=== PATIENT | female | born 1975 | race Caucasian/White ===

== ENCOUNTER 2024-04-22 04:15 | Emergency (ER) | payer BC, SELFPAY ==
[2024-04-22 04:22] VITALS: BP 156/70; PULSE 78; RESP 23; TEMP 36.6; O2SAT 98
--- OUTSIDE RECORDS SUMMARY | 2024-04-22 04:25 | XMS_ITS | Encounter Summary ---
Author Organization [facility] [place] Address [address] [place] [address] Care Team Providers Care Lead Cytogenetic Technologist Name Role Phone Edmar Temple MD Primary Care Provider [phone] Reason for Referral * (Routine/Next Available) - Receiving Office to Obtain Authorization Specialty Diagnoses / Procedures Referred By Contac t Referred To Contact Procedures CT OUTSIDE IMAGES LUMBAR SPINE Unknown, ProviderMD Referral ID Status Reason Start Date Expiration Date Visits Requested Visits Authorized [id number] Receiving Office to Obtain Authorization 3 1 1 Reason for Visit * (Routine/Next Available) - Receiving Office to Obtain Authorization Specialty Diagnoses / Procedures Referred By Contac t Referred To Contact Procedures CT OUTSIDE IMAGES LUMBAR SPINE Unknown, MD Clayton Referral ID Status Reason Start Date Expiration Date Visits Requested Visits Authorized [id number] Receiving Office to Obtain Authorization 3 1 1 Encounter Details Date Type Department Care Team (Latest Contact Info) Description 07/19/2023 14:45 EDT Hospital Encounter [facility] Secondary Reads [place] Discharge Disposition: Home or Self Care Social History Tobacco Use Types Packs/Day Years Used Date Smoking Tobacco: Former Cigarettes Q uit: 09/26/2003 Smokeless Tobacco: Never Alcohol Use Standard Drinks/Week Comments Yes 0 (1 standard drink = 0.6 oz pure alcohol) social does not tolerate well since bariatric surgery Interpersonal Safety Answer Date Record ed Physically Hurt Never 04/21/2020 Verbally Threaten Not on file 04/21/2020 Sex and Gender Information Value Date Recorded Sex Assigned at Not on file Gender Identity Not on file Sexual Orientation Not on file documented as of this encounter Functional Status Functional Status Response Date of Assess ment Because of a physical, menta l, or emotional condition, does this person have difficulty doing errands alone such as visiting a doctor's office or shopping? No 03/02/2018 Cognitive Status Response Date of Assessm ent Because of a physical, menta l, or emotional condition, does this person have serious difficulty concentrating, remembering, or making decisions? No 03/02/2018 documented as of this encounter Medications at Time of Discharge Medication Sig Dispensed Refills Start Date End Date acetaminophen (TYLENOL) 325 mg tablet Take 1-2 Tabs by mouth every 4 hours as needed for Pain. 04/18/2011 amLODIPine (NORVASC) 2.5 mg tablet Take 2 Tablets by mouth daily. atorvastatin (LIPITOR) 10 mg tablet Take 2 Tablets by mouth daily. blood glucose (FREESTYLE TEST) test stripsIndications:Type 2 diabetes mellitus with hyperglycemia ([facility]) Use as directed as needed for CGM back up. 100 Each 3 10/06/2022 CALCIUM CARBONATE/VITAMIN D3 (CALCIUM WITH VITAMIN D ORAL) Take by mouth daily. Cholecalciferol, Vitamin D3, 50 mcg capsuleIndications:Statu s post gastric bypass for obesity,Morbid obesity ([facility]),Postresectiona l malabsorption syndrome Take 1 Capsule by mouth daily. Cinnamon Bark 500 mg capsule Take 1,000 mg by mouth daily. citalopram (CELEXA) 20 mg tablet Take 1 Tab by mouth daily. 30 Tab 2 11/28/2010 CYANOCOBALAMIN (VITAMIN B-12 ORAL) Take by mouth daily. FERROUS FUMARATE (IRON ORAL) Take 1 Cap by mouth daily. 06/01/2011 insulin glargine (LANTUS SOLOSTAR/SEMGLEE) 100 unit/mL (3 mL) injection penIndications:Type 2 diabetes mellitus with hyperglycemia, with long-term current use of insulin ([facility]) Inject 60 Units into the skin at bedtime. Pump back up. Save to file 15 Each 01/21/2023 insulin lispro (HUMALOG U-100 INSULIN) 100 unit/mL vialIndications:Type 2 diabetes mellitus with hyperglycemia, with long-term current use of insulin ([facility]) Inject up to 120 units daily via insulin pump. 110 mL 3 04/01/2023 insulin pump cart,auto,BT-cntr (OMNIPOD 5 G6 INTRO KIT, GEN 5,) cartridge Inject 1 Each into the skin continuous. 1 Each 10/05/2022 levothyroxine (SYNTHROID) 25 mcg tabletIndications:Hypoth yroidism,Diabetes mellitus ([facility]) Take 1 Tablet by mouth daily. 90 Tablet 3 09/07/2022 losartan (COZAAR) 50 mg tablet Take 1 Tablet by mouth daily. MULTIVITAMIN ORALIndications:Morbid obesity ([facility]),DM (diabetes mellitus), type 2 ([facility]),HTN (hypertension),Status post gastric bypass for obesity,PCOS (polycystic ovarian syndrome),Malabsorption syndrome,Hypothyroid Take by mouth daily. 06/30/2010 semaglutide (OZEMPIC) 2 mg/dose (8 mg/3 mL) pen injectorIndications:Type 2 diabetes mellitus with hyperglycemia, with long-term current use of insulin ([facility]) Inject 2 mg into the skin once a week. 9 mL 3 04/06/2023 VITAMIN B COMPLEX ORAL Take by mouth daily. vitamin E 400 unit capsuleIndications:Hypot hyroidism,Diabetes mellitus ([facility]) Take 1 Capsule by mouth daily. Blood-Glucose Transmitter (DEXCOM G6 TRANSMITTER) device Use 1 Each as directed continuous. 1 Each 3 10/12/2022 10/05/2023 DEXCOM G6 SENSOR device USE 1 DEVICE EVERY 10 DAYS 9 Each 3 09/10/2022 09/02/2023 insulin pump cart,automated,BT (OMNIPOD 5 G6 PODS, GEN 5,) cartridge Inject 1 Each into the skin every 48 hours. 45 Each 3 04/01/2023 09/07/2023 metFORMIN (GLUCOPHAGE) 1,000 mg tabletIndications:Type 2 diabetes mellitus with hyperglycemia, with long-term current use of insulin ([facility]) Take 1 Tablet by mouth 2 times daily. 180 Tablet 3 09/07/2022 09/02/2023 documented as of this encounter Discharge Disposition Disposition Code Departure Means Destination Home or Self Care documented in this encounter Plan of Treatment Upcoming Encounters Date Type Department Care Team (Late st Contact Info) Description 05/17/2024 13:00 EDT Office Visit [facility] Endocrinology - [facility] [address] [place] [address] Twyla Mcclellan NP 62 [facility] [address] [place] [phone] 08/30/2024 14:00 EST Office Visit [facility] Endocrinology - [facility] [address] [place] [address] Twyla Mcclellan NP [address] [phone] documented as of this encounter Procedures Procedure Name Priority Date/Time Associated Diagnosis Comments CT OUTSIDE IMAGES LUMBAR SPINE Routine 07/19/2023 14:46 EDT documented in this encounter Results * CT OUTSIDE IMAGES LUMBAR SPINE (07/19/2023 14:46 EDT) Narrative 07/19/2023 14:46 EDT This is a non-reportable exam. Provider Unknown MD COLEMAN OTHER IMAGING OR DERABLES documented in this encounter Visit Diagnoses Not on filedocumented in this encounter Care Teams Lead Cytogenetic Technologist Relationship Specialty Start Date End Date Edmar Temple MD [address] [place] [address] [address] [place] [phone] PCP - General 11/21/13 documented as of this encounter
--- OUTSIDE RECORDS SUMMARY | 2024-04-22 04:25 | XMS_ITS | Encounter Summary ---
Author Organization [facility] Address [address] [place] [address] Care Team Providers Care Cheese Factory Worker Name Role Phone Edmar Temple MD Primary Care Provider [phone] Reason for Visit * Reason Comments New Med Request Encounter Details Date Type Department Care Team (Late st Contact Info) Description 11/23/2023 [facility] Endocrinology - [facility] [address] [place] [address] Twyla Mcclellan NP 62 [facility] [address] [place] [address] New Med Request Social History Tobacco Use Types Packs/Day Years [...] No 03/02/2018 documented as of this encounter Ordered Prescriptions Prescription Sig Dispensed Refills Start Date End Da te metFORMIN (GLUCOPHAGE-XR) 500 mg ER tablet Take 2 Tablets by mouth 2 times daily. 360 Tablet 3 11/24/2023 documented in this encounter Miscellaneous Notes * Telephone Encounter - Minerva Wallis (Rn), RN - 11/24/2023 0927 EST Per note on 11/17/2023: Metformin ER 1000mg twice daily documented in this encounter Plan of Treatment Upcoming Encounters Date Type Department Care Team (Late st Contact Info) Description 05/17/2024 13:00 EDT Office Visit [facility] Endocrinology [address] [phone] Twyla Mcclellan NP [address] [place] [phone] 08/30/2024 14:00 EST Office Visit [address] [address] Twyla Mcclellan NP [address] [place] [phone] documented as of this encounter Visit Diagnoses Not on filedocumented in this encounter Discontinued Medications Medication Sig Discontinue Reason Start Date End Da te metFORMIN (GLUCOPHAGE-XR) 500 mg ER tablet Take 1 Tablet by mouth 2 times daily with breakfast and dinner. 11/17/2023 11/24/2023 documented as of this encounter Care Teams Cheese Factory Worker Relationship Specialty Start Date End Date Edmar Temple MD [address] [place] [address] [place] [phone] PCP - General 11/21/13 documented as of this encounter
--- OUTSIDE RECORDS SUMMARY | 2024-04-22 04:25 | XMS_ITS | Encounter Summary ---
Author Organization [facility] Address [address] [place] [address] Care Team Providers Care Creative Strategist Name Role Phone Edmar Temple MD Primary Care Provider [phone] Reason for Visit * Reason Comments Medications Refill Encounter Details Date Type Department Care Team (Late st Contact Info) Description 10/03/2023 Refill [facility] Endocrinology - [facility] [address] [place], [place] [phone] Twyla Mcclellan NP 62 [facility] [address] [place] [address] Medications Refill Social History Tobacco Use Types Packs/Day Years [...] Dispensed Refills Start Date End Da te DEXCOM G6 TRANSMITTER device USE DIRECTED FOR 90 DAYS 1 Each 3 10/05/2023 documented in this encounter Plan of Treatment Upcoming Encounters Date Type Department Care Team (Late st Contact Info) Description 05/17/2024 13:00 EDT Office Visit [facility] Endocrinology [address] [address] Twyla Mcclellan NP [address] [place] [phone] 08/30/2024 14:00 EST Office Visit [address] [address] Twyla Mcclellan NP [address] [place] [phone] documented as of this encounter Visit Diagnoses Not on filedocumented in this encounter Discontinued Medications Medication Sig Discontinue Reason Start Date End Da te Blood-Glucose Transmitter (DEXCOM G6 TRANSMITTER) device Use 1 Each as directed continuous. 10/12/2022 10/05/2023 documented as of this encounter Care Teams Creative Strategist Relationship Specialty Start Date End Date Edmar Temple MD [address] [place] [address] [address] [place] [phone] PCP - General 11/21/13 documented as of this encounter
--- OUTSIDE RECORDS SUMMARY | 2024-04-22 04:25 | XMS_ITS | Encounter Summary ---
Author Organization [facility] Address [address] [place] [address] Care Team Providers Care Youth Probation Officer Name Role Phone Edmar Temple MD Primary Care Provider [phone] Reason for Visit * Reason Comments New Med Request Encounter Details Date Type Department Care Team (Late st Contact Info) Description 09/07/2023 [facility] Endocrinology - [facility] [address] [place] [address] Twyla Mcclellan NP 62 [facility] [address] [place] [address] New Med Request Social History [...] Dispensed Refills Start Date End Da te Blood-Glucose Sensor (DEXCOM G6 SENSOR) device Change sensor every 10 days. 9 Each 3 09/07/2023 documented in this encounter Plan of Treatment Upcoming Encounters Date Type Department Care Team (Late st Contact Info) Description 05/17/2024 13:00 EDT Office Visit [facility] Endocrinology - [address] [phone] Twyla Mcclellan NP [address] [place] [phone] 08/30/2024 14:00 EST Office Visit [address] [phone] Twyla Mcclellan NP [address] [place] [phone] documented as of this encounter Visit Diagnoses Not on filedocumented in this encounter Discontinued Medications Medication Sig Discontinue Reason Start Date End Da te DEXCOM G6 SENSOR device Use 1 Each as directed every 10 days. 09/02/2023 09/07/2023 documented as of this encounter Care Teams Youth Probation Officer Relationship Specialty Start Date End Date Edmar Temple MD [address] [place] [address] [place] [phone] PCP - General 11/21/13 documented as of this encounter
--- OUTSIDE RECORDS SUMMARY | 2024-04-22 04:25 | XMS_ITS | Encounter Summary ---
Author Organization [facility] Address [address] [place] [address] Care Team Providers Care Mechanic'S Assistant Name Role Phone Edmar Temple MD Primary Care Provider [phone] Reason for Referral * (Routine/Next Available) - Receiving Office to Obtain Authorization Specialty Diagnoses / Procedures Referred By Contac t Referred To Contact Procedures CT OUTSIDE IMAGES THORACIC SPINE Unknown, ProviderMD Referral ID Status Reason Start Date Expiration Date Visits Requested Visits Authorized [id number] Receiving Office to Obtain Authorization 3 1 1 Reason for Visit * (Routine/Next Available) - Receiving Office to Obtain Authorization Specialty Diagnoses / Procedures Referred By Contac t Referred To Contact Procedures CT OUTSIDE IMAGES THORACIC SPINE Unknown, MD Clayton Referral ID Status Reason Start Date Expiration Date Visits Requested Visits Authorized [id number] Receiving Office to Obtain Authorization 3 1 1 Encounter Details Date Type Department Care Team (Latest Contact Info) Description 07/19/2023 14:45 EDT Hospital Encounter [facility] Secondary Reads [place] Discharge Disposition: Home or [...] test stripsIndications:Type 2 diabetes mellitus with hyperglycemia ([facility]) Use as directed as needed for CGM back up. 100 Each 3 10/06/2022 CALCIUM CARBONATE/VITAMIN D3 (CALCIUM WITH VITAMIN D ORAL) Take by mouth daily. Cholecalciferol, Vitamin D3, 50 mcg capsuleIndications:Statu s post gastric bypass for obesity,Morbid obesity ([facility]),Postresectiona l malabsorption syndrome Take 1 Capsule by [...] hyperglycemia, with long-term current use of insulin ([facility]) Inject 60 Units into the skin at bedtime. Pump back up. Save to file 15 Each 01/21/2023 insulin lispro (HUMALOG U-100 INSULIN) 100 unit/mL vialIndications:Type 2 diabetes mellitus with hyperglycemia, with long-term current use of insulin ([facility]) Inject up to 120 units daily via insulin pump. 110 mL 3 04/01/2023 insulin pump cart,auto,BT-cntr (OMNIPOD 5 G6 INTRO KIT, GEN 5,) cartridge Inject 1 Each into the skin continuous. 1 Each 10/05/2022 levothyroxine (SYNTHROID) 25 mcg tabletIndications:Hypoth yroidism,Diabetes mellitus ([facility]) Take 1 Tablet by mouth daily. 90 Tablet 3 09/07/2022 losartan (COZAAR) 50 mg tablet Take 1 Tablet by mouth daily. MULTIVITAMIN ORALIndications:Morbid obesity ([facility]),DM (diabetes mellitus), type 2 ([facility]),HTN (hypertension),Status post gastric bypass for obesity,PCOS (polycystic ovarian syndrome),Malabsorption syndrome,Hypothyroid Take by mouth daily. 06/30/2010 semaglutide (OZEMPIC) 2 mg/dose (8 mg/3 mL) pen injectorIndications:Type 2 diabetes mellitus with hyperglycemia, with long-term current use of insulin ([facility]) Inject 2 mg into the skin once a week. 9 mL 3 04/06/2023 VITAMIN B COMPLEX ORAL Take by mouth daily. vitamin E 400 unit capsuleIndications:Hypot hyroidism,Diabetes mellitus ([facility]) Take 1 Capsule by mouth daily. Blood-Glucose [...] hyperglycemia, with long-term current use of insulin ([facility]) Take 1 Tablet by mouth 2 times daily. 180 Tablet 3 09/07/2022 09/02/2023 documented as of this encounter Discharge Disposition Disposition Code Departure Means Destination Home or Self Care documented in this encounter Plan of Treatment Upcoming Encounters Date Type Department Care Team (Late st Contact Info) Description 05/17/2024 13:00 EDT Office Visit [facility] Endocrinology - [facility] [address] [place] [address] Twyla Mcclellan NP 62 [facility] [address] [place] [phone] 08/30/2024 14:00 EST Office Visit [facility] Endocrinology - [facility] [address] [place] [address] Twyla Mcclellan NP [address] [phone] documented as of this encounter Procedures Procedure Name Priority Date/Time Associated Diagnosis Comments CT OUTSIDE IMAGES THORACIC SPINE Routine 07/19/2023 14:46 EDT documented in this encounter Results * CT OUTSIDE IMAGES THORACIC SPINE (07/19/2023 14:46 EDT) Narrative 07/19/2023 14:46 EDT This is a non-reportable exam. Provider Unknown MD COLEMAN OTHER IMAGING OR DERABLES documented in this encounter Visit Diagnoses Not on filedocumented in this encounter Care Teams Mechanic'S Assistant Relationship Specialty Start Date End Date Edmar Temple MD [address] [place] [address] [address] [place] [phone] PCP - General 11/21/13 documented as of this encounter
--- OUTSIDE RECORDS SUMMARY | 2024-04-22 04:25 | XMS_ITS | Referral Summary ---
Author Organization [facility] Address [address] [place] [address] Care Team Providers Care [employer] Sales Representative Name Role Phone Edmar Temple MD Primary Care Provider [phone] Allergies Active Allergy Reactions Criticality Noted Date Comments Lisinopril Cough High 06/15/2017 Medications Medication Sig Dispensed Refills Start Date End Date Status VITAMIN B COMPLEX ORAL Take by mouth daily. Active CYANOCOBALAMIN (VITAMIN B-12 ORAL) Take by mouth daily. Active FERROUS FUMARATE (IRON ORAL) Take 1 Cap by mouth daily. 06/01/2011 Active CALCIUM CARBONATE/VITAMIN D3 (CALCIUM WITH VITAMIN D ORAL) Take by mouth daily. Active MULTIVITAMIN ORALIndications:Morb id obesity ([facility]),DM (diabetes mellitus), type 2 ([facility]),HTN (hypertension),Statu s post gastric bypass for obesity,PCOS (polycystic ovarian syndrome),Malabsorpt ion syndrome,Hypothyroid Take by mouth daily. 06/30/2010 Active citalopram (CELEXA) 20 mg tablet Take 1 Tab by mouth daily. 30 Tab 2 11/28/2010 Active acetaminophen (TYLENOL) 325 mg tablet Take 1-2 Tabs by mouth every 4 hours as needed for Pain. 04/18/2011 Active Additional Information Patient not taking.Reported on 11/17/2023 Cholecalciferol, Vitamin D3, 50 mcg capsuleIndications:S tatus post gastric bypass for obesity,Morbid obesity ([facility]),Postresect ional malabsorption syndrome Take 1 Capsule by mouth daily. Active vitamin E 400 unit capsuleIndications:H ypothyroidism,Diabet es mellitus ([facility]) Take 1 Capsule by mouth daily. Active atorvastatin (LIPITOR) 10 mg tablet Take 2 Tablets by mouth daily. Active Cinnamon Bark 500 mg capsule Take 1,000 mg by mouth daily. Active losartan (COZAAR) 50 mg tablet Take 1 Tablet by mouth daily. Active amLODIPine (NORVASC) 2.5 mg tablet Take 2 Tablets by mouth daily. Active levothyroxine (SYNTHROID) 25 mcg tabletIndications:Hy pothyroidism,Diabete s mellitus ([facility]) Take 1 Tablet by mouth daily. 90 Tablet 3 09/07/2022 Active insulin pump cart,auto,BT-cntr (OMNIPOD 5 G6 INTRO KIT, GEN 5,) cartridge Inject 1 Each into the skin continuous. 1 Each 10/05/2022 Active blood glucose (FREESTYLE TEST) test stripsIndications:Ty pe 2 diabetes mellitus with hyperglycemia ([facility]) Use as directed as needed for CGM back up. 100 Each 3 10/06/2022 Active insulin glargine (LANTUS SOLOSTAR/SEMGLEE) 100 unit/mL (3 mL) injection penIndications:Type 2 diabetes mellitus with hyperglycemia, with long-term current use of insulin ([facility]) Inject 60 Units into the skin at bedtime. Pump back up. Save to file 15 Each 01/21/2023 Active insulin lispro (HUMALOG U-100 INSULIN) 100 unit/mL vialIndications:Type 2 diabetes mellitus with hyperglycemia, with long-term current use of insulin ([facility]) Inject up to 120 units daily via insulin pump. 110 mL 3 04/01/2023 Active semaglutide (OZEMPIC) 2 mg/dose (8 mg/3 mL) pen injectorIndications: Type 2 diabetes mellitus with hyperglycemia, with long-term current use of insulin ([facility]) Inject 2 mg into the skin once a week. 9 mL 3 04/06/2023 Active OMNIPOD 5 G6 PODS, GEN 5, cartridge USE 1 POD UNDER THE SKIN EVERY 48 HOURS 45 Each 09/07/2023 Active Blood-Glucose Sensor (DEXCOM G6 SENSOR) device Change sensor every 10 days. 9 Each 3 09/07/2023 Active DEXCOM G6 TRANSMITTER device USE DIRECTED FOR 90 DAYS 1 Each 3 10/05/2023 Active metFORMIN (GLUCOPHAGE-XR) 500 mg ER tablet Take 2 Tablets by mouth 2 times daily. 360 Tablet 3 11/24/2023 Active Active Problems Problem Noted Date Diagnosed Date Insulin pump in place 09/22/2023 Type 2 diabetes mellitus without complications ( [facility]) 02/28/2016 Type 2 diabetes mellitus with hyperglycemia ([facility]) 05/07/2015 Status post gastric bypass for obesity 1 Diabetes mellitus in , antepartum 04/10 Overview: ICD10 Update Auto Replacement Last Assessment & Plan: Her blood sugars are controlled according to her. She is using an insulin pump. Her midnight basal rate is 1.4 units, and we will reduce that to 1.0 units as she will be coming in NPO. Her is next Wednesday. Supervision of high-risk 03/06/2011 Overview: Pt. Will need Vit. K supplement starting @ 36weeks gest. Vit.K1 level .09 on 03/04/11( see scanned media for lab) +GBS - 03/30 Last Assessment & Plan: She has no c/o. Good movements. O: see vitals A: Doing well at 38w5d with diabetes and s/p gastric bypass P: on Wednesday. 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 Wants Repeat w tubal; [facility] BTL papers signed 12/18/10 C/S 04/14- scheduled Last Assessment & Plan: Pt scheduled for 03/25 at 9 with poor obstetric history 10/17/2010 Overview: labs from [facility]: Opos, Ab neg, Ucx neg, Cr 0.58, 24 urine protein neg, Hgb A1C 6.9, hct 44, Plt 269, varicella IgG pos, Igm neg, RPR NR, Rub immune, HIV neg, Heb B neg Chart review 12/24/10 ICD10 Update Auto Replacement Last Assessment & Plan: No signs/sx labor. Appropriate fundal height. Last growth 2 weeks ago, 50th percentile. Type 2 diabetes mellitus ([facility]) 05/14/2010 Hyperlipidemia 05/14/2010 PCOS (polycystic ovarian syndrome) 05/14/2010 Type 2 diabetes mellitus ([facility]) 01/03/2010 Hypertensive disorder 01/03/2010 Overview: Not on medications currently following weight loss with gastric bypass. 24 hr urine on 10/13/10 at [facility] without enough protein to quantify. Cr 0.58 Last Assessment & Plan: Stable - no meds Dyslipidemia 01/03/2010 Obstructive sleep apnea syndrome 11/07/2009 Hypothyroidism 08/08/2009 Overview: On 25 mcg Synthroid. TSH 0.71, FT4 0.8 on 10/13/10 TSH 0.54 on 02/07/11, no change in synthroid dose. Last Assessment & Plan: On LT4 25mcg daily managed by PCP, though pt requests Rx Asthma 08/08/2009 Overview: No intubations/hospitalizations since weight loss. No meds currently. Last Assessment & Plan: Stable Morbid obesity ([facility]) 08/07/2009 Diabetes mellitus ([facility]) 08/07/2009 Overview: Dx in 1999 On insulin pump with very low settings. Has seen endocrine in the past for consultation. Pump managed by Phylicia Caceres, SACHIN. Follow-up consult with endocrine regarding management with Pradeep Aquino in Oct, will continue to see her SIGHT EFFECTS SPECIALIST and endocrine for pump management. 24 hr urine protein negative 10/13 A1C 6.9 on 10/13/10 , 7.2 on 02/07 AFP- ordered, pt did not complete. Normal spine views on detailed us at 19+5 Detailed US nl echo nl Growth US (02/27 - EFW 2594 85%) testing (ordered) Last Assessment & Plan: Good control per pt Testing twice a week Sleep apnea 08/07/2009 Status post gastric bypass for obesity 9 Overview: Follows with Dr. Perry Calzada in [place]. Vit K level: low; lab results obtained after pt left; will add vit K at 36 wks IM Vit D, thiamine, iron, B12 nl on 02/07. Next visit in [place] in April. Last Assessment & Plan: Vit K shot this Am Social History Tobacco Use Types Packs/Day Years Used Date Smoking Tobacco: Former Cigarettes Q uit: 09/26/2003 Smokeless Tobacco: Never Tobacco Cessation:Counseling Given: Not Answered Alcohol Use Standard Drinks/Week Comments Yes 0 (1 standard drink = 0.6 oz pure alcohol) social does not tolerate well since bariatric surgery Interpersonal Safety Answer Date Record ed Physically Hurt Never 04/21/2020 Verbally Threaten Not on file 04/21/2020 Sex and Gender Information Value Date Recorded Sex Assigned at Not on file Gender Identity Not on file Sexual Orientation Not on file Last Filed Vital Signs Vital Sign Reading Time Taken Comments Blood Pressure 141/77 11/17/2023 1357 EST Pulse 80 11/17/2023 1357 EST Temperature 36.9 ??C (98.4 ??F) 04/18/2011 0900 EDT Respiratory Rate 18 04/18/2011 0900 EDT Oxygen Saturation 96% 04/18/2011 0900 EDT Inhaled Oxygen Concentration - - Weight 103.9 kg (229 lb 1.6 oz) 11/17/2023 1357 EST Height 172.7 cm (5' 7.99) 11/17/2023 1357 EST Body Mass Index 34.84 11/17/2023 1357 EST Functional Status Functional Status Response Date of [...] concentrating, remembering, or making decisions? No 03/02/2018 Plan of Treatment Upcoming Encounters Date Type Department Care Team (Late st Contact Info) Description 05/17/2024 13:00 EDT Office Visit [facility] Endocrinology - [address] [address] Twyla Mcclellan NP [address] [facility] [address] [place] [address] 08/30/2024 14:00 EST Office Visit [facility] Endocrinology - [address] [address] Twyla Mcclellan NP [address] [facility] [address] [place] [address] Procedures Procedure Name Priority Date/Time Associated Diagnosis Comments POCT HEMOGLOBIN A1C, INTERFACED Routine 11/17/2023 13:46 EST Type 2 diabetes mellitus with hyperglycemia, with long-term current use of insulin ([facility]) Insulin pump in place URINE [id number] E RATIO (ACR) Routine 11/08/2009 9:59 EST from Last 3 Months or Most Recently Relevant to Health Maintenance Results * (ABNORMAL) POCT HEMOGLOBIN A1C, INTERFACED (11/17/2023 13:46 EST) Hemoglobin A1c, POC 9.3(H) <5.7 % 11/17/2023 14:13 EST [facility] Blood VENOUS BLOOD / Unknown 11/17/2023 13:46 EST 11/17/2023 14:13 EST Narrative [facility] - 11/17/2023 14:13 EST For Hgb A1c values => 10%, a venous blood measurement in the main laboratory for confirmation is available. Reference Range: <5.7% Normal 5.7-6.4% Prediabetes =>6.5% Diagnostic for diabetes (if confirmed). Test performed at Endocrinology. Twyla Mcclellan NP POINT OF CARE TEST ORDERABLES Performing Organization Address City/[facility]/ZIP Co de Phone Number [facility] [address] [place] [address] * MICROALBUMIN (11/08/2009 9:59 EST) Creatinine, Urn [place] 252.1 mg/dl [facility] Ur Albumin mg/dl 1.8 <1.9 mg/dl [facility] Ur Alb ug/mg Crea 7.1 ug/mg Crea [facility] Comment: Normal: ??<30 ug/mg Creat Microalbuminuria: ??30-300 ug/mg Creat Clinical albuminuria: ??>300 ug/mg Creat 11/08/2009 9:59 EST 11/08/2009 10:01 EST Phylicia Brown SIGHT EFFECTS SPECIALIST CHEMISTRY & BLO OD GAS ORDERABLES Performing Organization Address [facility] Co de Phone Number [facility] [address] [place] [address] from Last 3 Months or Most Recently Relevant to Health Maintenance Advance Directives For more information, please contact: [phone] * Full Code (Latest Code Status on File) Date Activated Date Inactivated Comments 04/14/2011 9:04 04/18/2011 19:03 * Full Code Date Activated Date Inactivated Comments 08/07/2009 12:26 08/10/2009 16:03 Care Teams Electronics Parts Sales Representative Relationship Specialty Start Date End Date Edmar Temple MD [facility] [address] [place] [address] PCP - General 11/21/13
--- OUTSIDE RECORDS SUMMARY | 2024-04-22 04:25 | XMS_ITS | Encounter Summary ---
Author Organization [facility] Address [address] [place] [address] Care Team Providers Care Pricing Lead Name Role Phone Edmar Temple MD Primary Care Provider [phone] Reason for Visit * Reason Comments Diabetes Encounter Details Date Type Department Care Team (Latest Contact Info) Description 11/17/2023 14:00 EST [facility] [address] [place] [address] Twyla Mcclellan NP [address] [facility] [address] [place] [address] Type 2 diabetes mellitus with hyperglycemia, with long-term current use of insulin ([facility]) (Primary Dx); Insulin pump in place Social History Tobacco Use Types Packs/Day Years [...] on file documented as of this encounter Last Filed Vital Signs Vital Sign Reading Time Taken Comments Blood Pressure 141/77 11/17/2023 1357 EST Pulse 80 11/17/2023 1357 EST Temperature - - Respiratory Rate - - Oxygen Saturation - - Inhaled Oxygen Concentration - - Weight 103.9 kg (229 lb 1.6 oz) 11/17/2023 1357 EST Height 172.7 cm (5' 7.99) 11/17/2023 1357 EST Body Mass Index 34.84 11/17/2023 1357 EST documented in this encounter Functional Status Functional Status Response [...] 2 times daily with breakfast and dinner. 360 Tablet 3 11/17/2023 11/24/2023 documented in this encounter Progress Notes * Twyla Mcclellan DISTRICT ENGINEER - 11/17/2023 1400 EST [facility] Diabetes Follow-Up Note CHIEF COMPLAINT: Chief Complaint Patient presents with Diabetes HPI: Kymberly Stewart has had diabetes since age 22 Kymberly Stewart recently has a history of being in good glycemic control. Patient has a history of being noncompliant some of the time with medical therapy. Glucose monitoring: dexcom . Home Blood Glucoses Running: BGs range between 44 and 400 . Patient corrects for high blood sugar consistently, utilizes multiple injection/infusion sites and adjusting insulin doses in-between visits based on blood glucose trends Patient has a current medication list which includes the following prescription(s): acetaminophen, amlodipine, atorvastatin, blood glucose, dexcom g6 sensor, calcium carbonate/vitamin d3, cholecalciferol (vitamin d3), cinnamon bark, citalopram, cyanocobalamin (vitamin b-12), dexcom g6 transmitter, ferrous sulfate, insulin glargine, insulin lispro, omnipod 5 g6 intro kit (gen 5), levothyroxine, losartan, metformin, multivitamin, omnipod 5 g6 pods (gen 5), ozempic, vitamin b complex, and vitamin e. Kymberly Stewart now using omnipod 5 with dexcom. She was in the habit of bolusing post meal, d/t vomiting but since frenulectomy in 04/2021, she has had no vomiting. She reports that her job is verystressful, involves a lot of travel. Her back is feeling better after fx 06/2023 She has switch to omnipod 5 in 09/2022, she states it was rough in the beginning but has gotten muchbetter. She is up to date with her eye exam. Patient's CGM was downloaded and I reviewed the last 14 days worth of data for further diabetes medication management and titration. Download shows 45 % time in range, 0 % low, 0 % very low, 25% high and 30% very high. review of patterns showed delayed bolus resulting in high spiking BG Diabetes Pertinent negatives for diabetes include no chest pain. Review of Systems Constitutional: Positive for malaise/fatigue. Respiratory: Negative for cough, shortness of breath and wheezing. Cardiovascular: Negative for chest pain, palpitations and leg swelling. Gastrointestinal: Negative for abdominal pain, constipation, diarrhea, heartburn, nausea and vomiting. Neurological: Negative for tingling. Psychiatric/Behavioral: Positive for depression. The patient has experienced the following acute complications: hypoglycemia - mild and hyperglycemia - mild. Eating habits: adherent to diabetic diet. Patient's weight has been stable. Wt Readings from Last 3 Encounters: 11/17/23 (!) 103.9 kg (229 lb 1.6 oz) 09/07/22 (!) 110.7 kg (244 lb) 07/04/21 (!) 110.1 kg (242 lb 12.8 oz) Patient exercise level is: moderately active. Social History Tobacco Use Smoking status: Former Current packs/day: 0.00 Types: Cigarettes Quit date: 09/26/2003 Years since quittin.1 Smokeless tobacco: Never Substance Use Topics Alcohol use: Yes Comment: social does not tolerate well since bariatric surgery PHYSICAL EXAMINATION: Vitals: BP 141/77 Pulse 80 Ht 172.7 cm (67.99) Wt (!) 103.9 kg (229 lb 1.6 oz) BMI 34.84 kg/m?? BMI: Body mass index is 34.84 kg/m??. Physical Exam Constitutional: Appearance: She is obese. Neurological: General: No focal deficit present. Mental Status: She is alert and oriented to person, place, and time. Psychiatric: Mood and Affect: Mood normal. Behavior: Behavior normal. Thought Content: Thought content normal. Judgment: Judgment normal. LABS: Lab Results Component Value Date HGBA1C 9.3 (H) 11/17/2023 No results found for: CHOL, HDL, LDLBASE, TRIG, CHOLHDL Lab Results Component Value Date BUN 10 11/08/2009 CREATININE 0.70 04/14/2011 NA 140 11/08/2009 K 4.4 11/08/2009 Lab Results Component Value Date ALT 16 04/14/2011 Lab Results Component Value Date LABALBU 4.5 11/08/2009 UCREA 252.1 11/08/2009 MICRALBCRRAT 7.1 11/08/2009 ASSESSMENT: 1. Type 2 diabetes mellitus with hyperglycemia, with long-term current use of insulin ([facility]) 2. Insulin pump in place PLAN: Medications: Uses omnipod 5/Dexcom G6 A1c 9.3 She does use her correction regularly, Downloaded calorie Ike to help with carb counting We discussed the importance of timely and accurate bolus Consider setting missed bolus alarms Basal settings: 12a 1.5 u/h 6a 2.5 10a 4 10p 2.4 TDD: 71.8 Change insulin:carb to 1:5* Continue correction 15 Pt to schedule eye exam Metformin ER 1000mg twice daily, switched d/t diarrhea Ozmepic 2mg weekly Hypothyroidism: Continue LT4 25mcg daily Insulin: Insulin stabilization is required:yes Non-insulin: diet. Recommended: Statin therapy and If intolerant to ACEI, then ARB therapy . Glucose monitoring dexcom . Referred to diabetic education program. no Referred to graphic art sales representative no. Patient referred to eye geriatric personal care aide for annual dilated eye exam. Lifestyle modifications: recommend exercise and recommend compliance with a diabetic diet Patient does demonstrate knowledge of diabetes and expectations. Patient does understand medication regimen. Barriers to adherence: Disease State. Goals and plan to achieve these discussed Systolic blood pressure less than 130. And diastolic blood pressure less than 80. Hemoglobin A1C less than 7%. LDL cholesterol: 70 to 99. HDL - males >40 and females > 50 mgm/dl Trig less than 180 - fasting Kymberly Stewart is diagnosed with E10.65 Type 1 diabetes mellitus with hyperglycemia and is usinga: Pump and CGM Patient has For CGM: Patient has been testing their blood glucose levels at least 4 times a day for the past 30 days, Patient is on an insulin regimen that requires frequent adjustments by the patient based on their blood glucose readings, sliding scale and correction factors and Patient is injecting insulin 3 or more times daily or is on continuous pump therapy For Pump: Pump site change is occurring every 2 days Patient/Caregiver is motivated, as well as physically and intellectually able to operate the insulin pump Indications for Pump and/or CGM Therapy (select all that apply): HbA1c > 7 Patient has demonstrated high level of compliance w/ finger stick blood sugar monitoring, medications, diet and provider treatment. Recurring Hypoglycemia Severe Glycemic Excursion Poor Glycemic Control as Evidenced by 72 Hour CGM Sensing Trial Widely Fluctuating Blood Glucose Levels from [42 mg/dl to 380 mg/dl] Patient is using higher or lower premeal insulin depending on carb counting and correction factor or high or low premeal readings. This is done by adjusting the premeal insulin or pump meal bolus. Education: Patient has received CGM training from a CDE or certified head athletic trainer Patient has received pump training from a CDE or certified head athletic trainer and agrees to comply with the [facility] Endocrinology Pump Program Guidelines Patient/caregiver has completed diabetes education including carbohydrate counting and is motivatedto maintain optimal glucose control Lab Results Component Value Date HGBA1C 9.3 (H) 11/17/2023 I certify that I am the clinician managing this patient's diabetes. Return in 4 months. I spent a total of 35 minutes on the date of this encounter meeting with the patient and reviewing documentation/coordinating care as described in the above note. No procedures were performed at the time of the visit. Twyla Mcclellan NP 11/17/2023 14:48 * Phani Hall MA - 11/17/2023 1400 EST Omnipod and Dexcom uploaded 11/16 Fingerstick blood sample obtained for POCT Hemoglobin A1C performed for this DOS at the order of Twyla Mcclellan NP documented in this encounter Plan of Treatment Upcoming Encounters Date Type Department Care Team (Late st Contact Info) Description 05/17/2024 13:00 EDT [facility] - [address] [address] Twyla Mcclellan NP [address] [place] [address] [place] [phone] 08/30/2024 14:00 EST [facility] - [address] [address] Twyla Mcclellan NP [address] [place] [phone] Scheduled Orders Name Type Priority Associated Diagnoses Orde r Schedule POCT HEMOGLOBIN A1C, INTERFACED ORDER Lab Routine Type 2 diabetes mellitus with hyperglycemia, with long-term current use of insulin ([facility]) Insulin pump in place 4 Occurrences starting 11/10/2023 until 11/09/2024, 1 completed documented as of this encounter Procedures Procedure Name Priority Date/Time Associated Diagnosis Comments POCT CSN BARCODE HEMOGLOBIN A1C INT Routine 11/17/2023 13:55 EST Type 2 diabetes mellitus with hyperglycemia, with long-term current use of insulin ([facility]) Insulin pump in place POCT HEMOGLOBIN A1C, INTERFACED ORDER Routine 11/17/2023 13:46 EST Type 2 diabetes mellitus with hyperglycemia, with long-term current use of insulin ([facility]) Insulin pump in place POCT HEMOGLOBIN A1C, INTERFACED Routine 11/17/2023 13:46 EST Type 2 diabetes mellitus with hyperglycemia, with long-term current use of insulin ([facility]) Insulin pump in place documented in this encounter Results * POCT CSN BARCODE HEMOGLOBIN A1C INT (11/17/2023 13:55 EST) Hold Hold 11/17/2023 15:01 EST [facility] Blood VENOUS BLOOD / Unknown 11/17/2023 13:55 EST 11/17/2023 13:55 EST Twyla Mcclellan NP LAB INFO SERVICE AN D SUPPORT & PHONE RESULT Performing Organization Address [facility]/ZIP Co de Phone Number [facility] [address] [place], [place] [address] * (ABNORMAL) POCT HEMOGLOBIN A1C, INTERFACED (11/17/2023 13:46 EST) Hemoglobin A1c, POC 9.3(H) <5.7 % 11/17/2023 14:13 EST [facility] Blood VENOUS BLOOD / Unknown 11/17/2023 13:46 EST 11/17/2023 14:13 EST Narrative [facility] - 11/17/2023 14:13 EST For Hgb A1c values => 10%, a venous blood measurement in the main laboratory for confirmation is available. Reference Range: <5.7% Normal 5.7-6.4% Prediabetes =>6.5% Diagnostic for diabetes (if confirmed). Test performed at Endocrinology. Twyla Mcclellan NP POINT OF CARE TEST ORDERABLES Performing Organization Address [facility] Co de Phone Number [facility] [address] [place] [address] [phone] documented in this encounter Visit Diagnoses Diagnosis Type 2 diabetes mellitus with hyperglycemia, with long-term current use of insulin ([facility])- Primary Insulin pump in place Insulin pump status documented in this encounter Discontinued Medications Medication Sig Discontinue Reason Start Date End Da te metFORMIN (GLUCOPHAGE) 1,000 mg tabletIndications:Type 2 diabetes mellitus with hyperglycemia, with long-term current use of insulin ([facility]) TAKE ONE TABLET BY MOUTH TWICE A DAY Dose adjustment 09/02/2023 11/17/2023 documented as of this encounter Care Teams Pricing Lead Relationship Specialty Start Date End Date Edmar Temple MD [facility] [employer] [address] [place] [address] PCP - General 11/21/13 documented as of this encounter
--- OUTSIDE RECORDS SUMMARY | 2024-04-22 04:25 | XMS_ITS | Clinical Summary ---
Author Organization [facility] Address [address] [place] [address] Care Team Providers Care Gang Investigator Name Role Phone Edmar Temple MD Primary Care Provider [phone] Allergies Active Allergy Reactions Criticality Noted Date [...] mouth daily. Active MULTIVITAMIN ORALIndications:Morb id obesity ([facility]),DM (diabetes mellitus), type 2 ([facility]),HTN (hypertension),Statu s post gastric bypass for obesity,PCOS [...] tatus post gastric bypass for obesity,Morbid obesity ([facility]),Postresect ional malabsorption syndrome Take 1 Capsule by mouth daily. Active vitamin E 400 unit capsuleIndications:H ypothyroidism,Diabet es mellitus ([facility]) Take 1 Capsule by mouth [...] (SYNTHROID) 25 mcg tabletIndications:Hy pothyroidism,Diabete s mellitus ([facility]) Take 1 Tablet by mouth daily. 90 Tablet 3 09/07/2022 Active insulin pump cart,auto,BT-cntr (OMNIPOD 5 G6 INTRO KIT, GEN 5,) cartridge Inject 1 Each into the skin continuous. 1 Each 10/05/2022 Active blood glucose (FREESTYLE TEST) test stripsIndications:Ty pe 2 diabetes mellitus with hyperglycemia ([facility]) Use as directed as needed for CGM back up. 100 Each 3 10/06/2022 Active insulin glargine (LANTUS SOLOSTAR/SEMGLEE) 100 unit/mL (3 mL) injection penIndications:Type 2 diabetes mellitus with hyperglycemia, with long-term current use of insulin ([facility]) Inject 60 Units into the skin at bedtime. Pump back up. Save to file 15 Each 01/21/2023 Active insulin lispro (HUMALOG U-100 INSULIN) 100 unit/mL vialIndications:Type 2 diabetes mellitus with hyperglycemia, with long-term current use of insulin ([facility]) Inject up to 120 units daily via insulin pump. 110 mL 3 04/01/2023 Active semaglutide (OZEMPIC) 2 mg/dose (8 mg/3 mL) pen injectorIndications: Type 2 diabetes mellitus with hyperglycemia, with long-term current use of insulin ([facility]) Inject 2 mg into the skin [...] Type 2 diabetes mellitus without complications ( [facility]) 02/28/2016 Type 2 diabetes mellitus with hyperglycemia ([facility]) 05/07/2015 Status post gastric bypass for obesity [...] of section 10/17/2010 Overview: Hx LTCS at [facility]. Wants Repeat w tubal; [facility] BTL papers signed 12/18/10 C/S 04/14- scheduled Last Assessment & Plan: Pt scheduled for 03/25 at 11 with poor obstetric history 10/17/2010 Overview: labs from [facility]: Opos, Ab neg, Ucx neg, Cr 0.58, 24 urine protein neg, Hgb A1C 6.9, hct 44, Plt 269, varicella IgG pos, Igm neg, RPR NR, Rub immune, HIV neg, Heb B neg Chart review 12/24/10 ICD10 Update Auto Replacement Last Assessment & Plan: No signs/sx labor. Appropriate fundal height. Last growth 2 weeks ago, 50th percentile. Type 2 diabetes mellitus ([facility]) 05/14/2010 Hyperlipidemia 05/14/2010 PCOS (polycystic ovarian syndrome) 05/14/2010 Type 2 diabetes mellitus ([facility]) 01/03/2010 Hypertensive disorder 01/03/2010 Overview: Not on medications currently following weight loss with gastric bypass. 24 hr urine on 10/13/10 at [facility] without enough protein to quantify. [...] Last Assessment & Plan: Stable Morbid obesity ([facility]) 08/07/2009 Diabetes mellitus ([facility]) 08/07/2009 Overview: Dx in 1999 On insulin pump with very low settings. Has seen endocrine in the past for consultation. Pump managed by Phylicia Caceres, SACHIN. Follow-up consult with endocrine regarding management with Pradeep Aquino in Oct, will continue to see her LAUNDRY TECHNICIAN and endocrine for pump management. 24 hr [...] Overview: Follows with Dr. Perry Calzada in [place]. Vit K level: low; lab results obtained after pt left; will add vit K at 36 wks IM Vit D, thiamine, iron, B12 nl on 02/07. Next visit in [place] in April. Last Assessment & Plan: Vit K shot this Am Surgical History Surgery Date Site/Laterality Comments GASTRIC BYPASS SURGERY 08/07/2009 Lap DILATION AND CURETTAGE OF UTERUS REPEAT SECTION 04/14/2011 TUBAL LIGATION 04/14/2011 Medical History Medical History Date Comments Diabetes ([facility]) Hypothyroidism Morbid obesity ([facility]) Asthma Hiatal hernia PCOS (polycystic ovarian syndrome) HAMM (nonalcoholic steatohepatitis) HTN (hypertension) Esophagitis Sleep apnea Environmental allergies Hyperlipidemia Social History Tobacco Use Types Packs/Day Years [...] on file Sexual Orientation Not on file Obstetrics History Para Term AB IAB SAB Ectopic Multiple Livin g Live Births 2 2 2 1 1 Date Outcome GA Total Labor Labor/2nd/3rd Weight Sex Type Anes PTL Maryann A1 A5 Name Clin 2004 Term 38w 0d 36h 00m/ 3685 g (8 lb 2 oz) M CS-LT ranv Spinal N Livin g Funmilayo Mcconnell r Delivery Location:[facility] 2010 Term 39w 2d 4281 g (9 lb 7 oz) F CS-LT ranv N 7 9 FRACISCO STEWART Sarah M., MD Delivery Location:[facility] Last Filed Vital Signs Vital Sign Reading [...] Body Mass Index 34.84 11/17/2023 1357 EST Plan of Treatment Upcoming Encounters Date Type Department Care Team (Late st Contact Info) Description 05/17/2024 13:00 EDT Office Visit [facility] Endocrinology [address] [phone] Twyla Mcclellan NP [address] [place] [phone] 08/30/2024 14:00 EST Office Visit [address] [address] Twyla Mcclellan NP [address] [place] [phone] Health Maintenance Due Date Last Done Comments Asthma Action Plan 1973 Eye Exam 1973 Foot Exam 1973 Hepatitis C Screen 1973 Lung Function Test (Spirometry) 1973 Lipid Profile Screening (Cholesterol) 02/23/1976 Hepatitis B Vaccine (1 of 3 - 19+ 3-dose series) 02/23/1992 Microalbumin/Creatinine Ratio 11/08/2010 11/08/2009, 07/25/2009 COVID-19 Vaccine (2022-2 4 season) 2023 Hemoglobin A1C (Ha1C) 05/17/2024 11/17/2023 , 11/17/2023, 09/07/2022, Additional history exists Procedures Procedure Name Priority Date/Time Associated Diagnosis Comments POCT HEMOGLOBIN A1C, INTERFACED Routine 11/17/2023 13:46 EST Type 2 diabetes mellitus with hyperglycemia, with long-term current use of insulin ([facility]) Insulin pump in place URINE [id number]-[id number]-ANJRZABQL E RATIO (ACR) Routine 11/08/2009 9:59 EST from Last 3 Months or Most Recently Relevant to Health Maintenance Results * (ABNORMAL) POCT HEMOGLOBIN A1C, INTERFACED (11/17/2023 13:46 EST) Hemoglobin A1c, POC 9.3(H) <5.7 % 11/17/2023 14:13 EST [facility] Blood VENOUS BLOOD / Unknown 11/17/2023 13:46 EST 11/17/2023 14:13 EST Narrative [facility] - 11/17/2023 14:13 EST For Hgb A1c values => 10%, a venous blood measurement in the main laboratory for confirmation is available. Reference Range: <5.7% Normal 5.7-6.4% Prediabetes =>6.5% Diagnostic for diabetes (if confirmed). Test performed at Endocrinology. Twyla Mcclellan NP POINT OF CARE TEST ORDERABLES Performing Organization Address City/State/RUST Co de Phone Number [facility] [address] [place] [address] * MICROALBUMIN (11/08/2009 9:59 EST) Creatinine, Urn [place] 252.1 mg/dl [facility] Ur Albumin mg/dl 1.8 <1.9 mg/dl [facility] Ur Alb ug/mg Crea 7.1 ug/mg Crea [facility] Comment: Normal: ??<30 ug/mg Creat Microalbuminuria: ??30-300 ug/mg Creat Clinical albuminuria: ??>300 ug/mg Creat 11/08/2009 9:59 EST 11/08/2009 10:01 EST Phylicia Ross-Rising LAUNDRY TECHNICIAN CHEMISTRY & BLO OD GAS ORDERABLES [facility] [address] [place] [address] from Last 3 Months or Most Recently Relevant to Health Maintenance Advance Directives For more information, please contact: [phone] * Full Code (Latest Code Status on File) Date Activated Date Inactivated Comments 04/14/2011 9:04 04/18/2011 19:03 * Full Code Date Activated Date Inactivated Comments 08/07/2009 12:26 08/10/2009 16:03 Care Teams Gang Investigator Relationship Specialty Start Date End Date Edmar Temple MD [facility] [address] [place] [phone] PCP - General 11/21/13
--- OUTSIDE RECORDS SUMMARY | 2024-04-22 04:25 | XMS_ITS | Encounter Summary ---
Author Organization [facility] Address [address] [place] [address] Care Team Providers Care Magazine Designer Name Role Phone Edmar Temple MD Primary Care Provider [phone] Reason for Visit * Reason Comments Diabetes Encounter Details Date Type Department Care Team (Latest Contact Info) Description 09/22/2023 15:00 EST Telemedicine [facility] [address] [place] [address] Twyla Mcclellan NP [address] [facility] [address] [place] [phone] Type 2 diabetes mellitus with hyperglycemia, with long-term current use of insulin ([facility]) (Primary Dx); Insulin pump in place; Hypothyroidism due to Rj's thyroiditis Social History Tobacco Use Types Packs/Day Years [...] No 03/02/2018 documented as of this encounter Progress Notes * Twyla Mcclellan NP - 09/22/2023 1500 EST TELEMEDICINE VIDEO VISIT Today's visit was provided through telemedicine video conferencing: I have reviewed the appropriateness of using video technology with the patient with regards to today's visit. The location of the patient : Home Patient location state: Visit Location State: [place] The location of the provider: Home Office Provider location state: Visit Location State: [place] The following people and their roles were present for today's visit: Appointment Provider: Twyla Mcclellan NP Kymberly Stewart Twyla Mcclellan NP The concept of ???Telemedicine?? has been described to the patient.? Patient has been informed of the anticipated benefits and possible risks.? Patient understands the information provided regardingtelemedicine, has had the opportunity to ask questions about this information, and all questions have been answered to patient???s satisfaction. Patient consents for the use of telemedicine in his/her medical care and authorizes the transmission of any relevant medical information to providers and their staff involved in patient???s medical or mental health care. Patient understands that they maybe responsible for copays, deductible or coinsurance for this service. [facility] Diabetes Follow-Up Note Kymberly Stewart presents over zoom today CHIEF COMPLAINT: Chief Complaint Patient presents with [...] amlodipine, atorvastatin, blood glucose, dexcom g6 sensor, dexcom g6 transmitter, calcium carbonate/vitamin d3, cholecalciferol (vitamin d3), cinnamon bark, citalopram, cyanocobalamin (vitamin b-12), ferrous sulfate, insulin glargine, insulin lispro, omnipod [...] is verystressful, involves a lot of travel. She fx her back in 2 places in June, T1, L1, she has some discomfort when she is sitting for long periods. She has switch to omnipod 5 in 09/2022, she states it was rough in the beginning but has gotten muchbetter. She is up to date with her eye exam. Patient's CGM was downloaded and I reviewed the last 12 days worth of data for further diabetes medication management and titration. Download shows 49 % time in range, 0 % low, 0 % very low, 17% high and 34% very high. review of patterns showed very high spikes in BG, there are delayed and missed bolus pattern. Diabetes Pertinent negatives for diabetes include no [...] stable. Wt Readings from Last 3 Encounters: 09/07/22 (!) 110.7 kg (244 lb) 07/04/21 (!) 110.1 kg (242 lb 12.8 oz) 07/12/19 (!) 110.8 kg (244 lb 3.2 oz) Patient exercise level is: moderately active. Social History Tobacco Use Smoking status: Former Current packs/day: 0.00 Types: Cigarettes Quit date: 09/26/2003 Years since quittin.0 Smokeless tobacco: Never Substance Use Topics Alcohol use: Yes Comment: social does not tolerate well since bariatric surgery PHYSICAL EXAMINATION: Vitals: There were no vitals taken for this visit. BMI: There is no height or weight on file to calculate BMI. Physical Exam Constitutional: Appearance: She is obese. Neurological: General: No focal deficit present. Mental Status: She is alert and oriented to person, place, and time. Psychiatric: Mood and Affect: Mood normal. Behavior: Behavior normal. Thought Content: Thought content normal. Judgment: Judgment normal. LABS: Reports A1c 8.1 at PCP in June Lab Results Component Value Date HGBA1C 8.2 (H) 09/07/2022 No results found for: CHOL, HDL, LDLBASE, TRIG, CHOLHDL Lab Results Component Value Date BUN 10 11/08/2009 CREATININE 0.70 04/14/2011 NA 140 11/08/2009 K 4.4 11/08/2009 Lab Results Component Value Date ALT 16 04/14/2011 Lab Results Component Value Date LABALBU 4.5 11/08/2009 UCREA 252.1 11/08/2009 MICRALBCRRAT 7.1 11/08/2009 ASSESSMENT: 1. Type 2 diabetes mellitus with hyperglycemia, with long-term current use of insulin ([facility]) 2. Insulin pump in place 3. Hypothyroidism due to Rj's thyroiditis PLAN: Medications: Uses omnipod 5/Dexcom G6 A1c ordered She does use her correction regularly, but very little bolusing for carbs We discussed the importance of timely and accurate bolus Consider setting missed bolus alarms Basal settings: 12a 1.5 u/h 6a 2.5 10a 4 10p 2.4 TDD: 71.8 Change insulin:carb to 1:7* Continue correction 15 Pt to schedule eye exam Metformin 1000mg twice daily Ozmepic 2mg weekly Hypothyroidism: Continue LT4 25mcg daily Insulin: Insulin stabilization is required:yes Non-insulin: diet. Recommended: Statin therapy and If intolerant to ACEI, then ARB therapy . Glucose monitoring dexcom . Referred to diabetic education program. no Referred to rod piler no. Patient referred to eye animal care specialist for annual dilated eye exam. Lifestyle modifications: [...] CGM training from a CDE or certified adjunct trainer Patient has received pump training from a CDE or certified adjunct trainer and agrees to comply with the [facility] Endocrinology Pump Program Guidelines Patient/caregiver has completed diabetes education including carbohydrate counting and is motivatedto maintain optimal glucose control Lab Results Component Value Date HGBA1C 8.2 (H) 09/07/2022 I certify that I am the clinician managing this patient's diabetes. Return in 4 months. I spent a total of 45 minutes on the date of this encounter meeting with the patient and reviewing documentation/coordinating care as described in the above note. No procedures were performed at the time of the visit. Twyla Mcclellan NP 09/22/2023 15:33 documented in this encounter Plan of Treatment Upcoming Encounters Date Type Department Care Team (Late st Contact Info) Description 05/17/2024 13:00 EDT Office Visit [facility] Endocrinology - [address] [address] Twyla Mcclellan NP [address] [place] [phone] 08/30/2024 14:00 EST Office Visit [facility] Endocrinology - [address] [address] Twyla Mcclellan NP [address] [place] [phone] documented as of this encounter Visit Diagnoses Diagnosis Type 2 diabetes mellitus with hyperglycemia, with long-term current use of insulin (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
--- OUTSIDE RECORDS SUMMARY | 2024-04-22 04:25 | XMS_ITS | Encounter Summary ---
Author Organization [facility] Address [address] [place] [address] Care Team Providers Care Hot Mill Operator Name Role Phone Edmar Temple MD Primary Care Provider [phone] Reason for Visit * Reason Comments Medications Refill Encounter Details Date Type Department Care Team (Late st Contact Info) Description 08/29/2023 Refill [facility] Endocrinology - [facility] [address] [place], [place] [phone] Twyla Mcclellan NP [address] [facility] [address] [place] [phone] Medications Refill Social History Tobacco [...] 1 Each as directed every 10 days. 9 Each 3 09/02/2023 09/07/2023 metFORMIN (GLUCOPHAGE) 1,000 mg tabletIndications:Type 2 diabetes mellitus with hyperglycemia, with long-term current use of insulin ([facility]) TAKE ONE TABLET BY MOUTH TWICE A DAY 180 Tablet 3 09/02/2023 11/17/2023 documented in this encounter Plan of Treatment Upcoming Encounters Date Type Department Care Team (Late st Contact Info) Description 05/17/2024 13:00 EDT Office Visit [address] [phone] Twyla Mcclellan NP [address] [place] [phone] 08/30/2024 14:00 EST Office Visit [address] [phone] Twyla Mcclellan NP [address] [place] [phone] documented as of this encounter Visit Diagnoses Diagnosis Type 2 diabetes mellitus with hyperglycemia, with long-term current use of insulin ([facility])- Primary documented in this encounter Discontinued Medications Medication Sig Discontinue Reason Start Date End Da te metFORMIN (GLUCOPHAGE) 1,000 mg tabletIndications:Type 2 diabetes mellitus with hyperglycemia, with long-term current use of insulin ([facility]) Take 1 Tablet by mouth 2 times daily. 09/07/2022 09/02/2023 DEXCOM G6 SENSOR device USE 1 DEVICE EVERY 10 DAYS 09/10/2022 09/02/2023 documented as of this encounter Care Teams Hot Mill Operator Relationship Specialty Start Date End Date Edmar Temple MD [address] [place] [address] [address] [place] [phone] PCP - General 11/21/13 documented as of this encounter
--- OUTSIDE RECORDS SUMMARY | 2024-04-22 04:25 | XMS_ITS | Encounter Summary ---
Author Organization [facility] Address [address] [place] [address] Care Team Providers Care Parcel Post Officer Name Role Phone Edmar Temple MD Primary Care Provider [phone] Reason for Visit * Reason Comments Medications Refill Encounter Details Date Type Department Care Team (Late st Contact Info) Description 09/06/2023 Refill [facility] Endocrinology - [facility] [address] [place], [place] [phone] Twyla Mcclellan NP [address] [facility] [address] [place] [phone] Medications Refill Social History Tobacco [...] Dispensed Refills Start Date End Da te OMNIPOD 5 G6 PODS, GEN 5, cartridge USE 1 POD UNDER THE SKIN EVERY 48 HOURS 45 Each 3 09/07/2023 documented in this encounter Plan of Treatment Upcoming Encounters Date Type Department Care Team (Late st Contact Info) Description 05/17/2024 13:00 EDT Office Visit [facility] Endocrinology [address] [phone] Twyla Mcclellan NP [address] [place] [phone] 08/30/2024 14:00 EST Office Visit [address] [phone] Twyla Mcclellan NP [address] [place] [phone] documented as of this encounter Visit Diagnoses Not on filedocumented in this encounter Discontinued Medications Medication Sig Discontinue Reason Start Date End Da te insulin pump cart,automated,BT (OMNIPOD 5 G6 PODS, GEN 5,) cartridge Inject 1 Each into the skin every 48 hours. 04/01/2023 09/07/2023 documented as of this encounter Care Teams Parcel Post Officer Relationship Specialty Start Date End Date Edmar Temple MD [facility] [employer] [employer] [address] [place] [phone] PCP - General 11/21/13 documented as of this encounter
--- OUTSIDE RECORDS SUMMARY | 2024-04-22 04:25 | XMS_ITS | Encounter Summary ---
Author Organization [facility] Address [address] [place] [address] Care Team Providers Care Behavioral Health Associate Name Role Phone Edmar Temple MD Primary Care Provider [phone] Reason for Referral * (Routine/Next Available) - Receiving Office to Obtain Authorization Specialty Diagnoses / Procedures Referred By Contac t Referred To Contact Procedures XR OUTSIDE IMAGES CHEST Unknown, ProviderMD Referral ID Status Reason Start Date Expiration Date Visits Requested Visits Authorized [id number] Receiving Office to Obtain Authorization 3 1 1 Reason for Visit * (Routine/Next Available) - Receiving Office to Obtain Authorization Specialty Diagnoses / Procedures Referred By Contac t Referred To Contact Procedures XR OUTSIDE IMAGES CHEST Unknown, MD Clayton Referral ID Status Reason Start Date Expiration Date Visits Requested Visits Authorized [id number] Receiving Office to Obtain Authorization 3 1 1 Encounter Details Date Type Department Care Team (Latest Contact Info) Description 07/19/2023 14:46 EDT - 07/19/2023 23:59 EDT Hospital Encounter [facility] Secondary Reads [place] Discharge Disposition: Home [...] test stripsIndications:Type 2 diabetes mellitus with hyperglycemia ([facility]) Use as directed as needed for CGM back up. 100 Each 3 10/06/2022 CALCIUM CARBONATE/VITAMIN D3 (CALCIUM WITH VITAMIN D ORAL) Take by mouth daily. Cholecalciferol, Vitamin D3, 50 mcg capsuleIndications:Statu s post gastric bypass for obesity,Morbid obesity ([facility]),Postresectiona l malabsorption syndrome Take 1 [...] with long-term current use of insulin ([facility]) Inject 60 Units into the skin at bedtime. Pump back up. Save to file 15 Each 01/21/2023 insulin lispro (HUMALOG U-100 INSULIN) 100 unit/mL vialIndications:Type 2 diabetes mellitus with hyperglycemia, with long-term current use of insulin ([facility]) Inject up to 120 units daily via insulin pump. 110 mL 3 04/01/2023 insulin pump cart,auto,BT-cntr (OMNIPOD 5 G6 INTRO KIT, GEN 5,) cartridge Inject 1 Each into the skin continuous. 1 Each 10/05/2022 levothyroxine (SYNTHROID) 25 mcg tabletIndications:Hypoth yroidism,Diabetes mellitus ([facility]) Take 1 Tablet by mouth daily. 90 Tablet 3 09/07/2022 losartan (COZAAR) 50 mg tablet Take 1 Tablet by mouth daily. MULTIVITAMIN ORALIndications:Morbid obesity ([facility]),DM (diabetes mellitus), type 2 ([facility]),HTN (hypertension),Status post gastric bypass for obesity,PCOS (polycystic ovarian syndrome),Malabsorption syndrome,Hypothyroid Take by mouth daily. 06/30/2010 semaglutide (OZEMPIC) 2 mg/dose (8 mg/3 mL) pen injectorIndications:Type 2 diabetes mellitus with hyperglycemia, with long-term current use of insulin ([facility]) Inject 2 mg into the skin once a week. 9 mL 3 04/06/2023 VITAMIN B COMPLEX ORAL Take by mouth daily. vitamin E 400 unit capsuleIndications:Hypot hyroidism,Diabetes mellitus ([facility]) Take 1 Capsule by mouth daily. Blood-Glucose [...] with long-term current use of insulin ([facility]) Take 1 Tablet by mouth 2 times daily. 180 Tablet 3 09/07/2022 09/02/2023 documented as of this encounter Discharge Disposition Disposition Code Departure Means Destination Home or Self Care documented in this encounter Plan of Treatment Upcoming Encounters Date Type Department Care Team (Late st Contact Info) Description 05/17/2024 13:00 EDT Office Visit [facility] Endocrinology - [address] [address] Twyla Mcclellan NP [address] [phone] 08/30/2024 14:00 EST Office Visit [facility] Endocrinology - [facility] [address] [place] [address] Twyla Mcclellan NP [address] [phone] documented as of this encounter Procedures Procedure Name Priority Date/Time Associated Diagnosis Comments XR OUTSIDE IMAGES CHEST Routine 07/19/2023 14:46 EDT documented in this encounter Results * XR OUTSIDE IMAGES CHEST (07/19/2023 14:46 EDT) Narrative 07/19/2023 14:46 EDT This is a non-reportable exam. Provider Unknown MD COLEMAN OTHER IMAGING OR DERABLES documented in this encounter Visit Diagnoses Not on filedocumented in this encounter Care Teams Behavioral Health Associate Relationship Specialty Start Date End Date Edmar Temple MD [address] [place] [address] [address] [place] [phone] PCP - General 11/21/13 documented as of this encounter
--- OUTSIDE RECORDS SUMMARY | 2024-04-22 04:26 | XMS_ITS | Encounter Summary ---
Author Organization [facility] Address [address] [place] [address] Care Team Providers Care Greaser Helper Name Role Phone Edmar Temple MD Primary Care Provider [phone] Reason for Visit * Reason Comments Medications Refill Encounter Details Date Type Department Care Team (Late st Contact Info) Description 06/14/2022 Refill [facility] Endocrinology - [facility] [address] [place], [place] [phone] Twyla Mcclellan NP 62 [facility] [address] [place] [address] Medications Refill Social History Tobacco [...] te DEXCOM G6 TRANSMITTER device USE DIRECTED EVERY 90 DAYS 1 Each 06/17/2022 10/10/2022 HUMALOG U-100 INSULIN 100 unit/mL vialIndications:Type 2 diabetes mellitus with hyperglycemia, with long-term current use of insulin ([facility]) INJECT 80 UNITS DAILY 80 mL 06/17/2022 09/07/2022 documented in this encounter Miscellaneous Notes * Telephone Encounter - Lorelei Melton RN - 06/17/2022 1348 EDT Orders validated and automatic refill request was processed. Lorelei Melton RN documented in this encounter Plan of Treatment Upcoming Encounters Date Type Department Care Team (Late st Contact Info) Description 05/17/2024 13:00 EDT Office Visit [facility] Endocrinology - [address] [phone] Twyla Mcclellan NP [address] [place] [phone] 08/30/2024 14:00 EST Office Visit [facility] Endocrinology [address] [phone] Twyla Mcclellan NP [address] [place] [phone] documented as of this encounter Visit Diagnoses Diagnosis Type 2 diabetes mellitus with hyperglycemia, with long-term current use of insulin ([facility])- Primary documented in this encounter Discontinued Medications Medication Sig Discontinue Reason Start Date End Da te Blood-Glucose Transmitter (DEXCOM G6 TRANSMITTER) device 1 Device by misc (non-drug; combo route) route every 90 days. E11.65 insulin dependent 06/25/2021 06/17/2022 insulin lispro (HUMALOG U-100 INSULIN) 100 unit/mL vialIndications:Type 2 diabetes mellitus with hyperglycemia, with long-term current use of insulin ([facility]) 80 Units by subcutaneous - insulin pump route daily. 07/04/2021 06/17/2022 documented as of this encounter Care Teams Greaser Helper Relationship Specialty Start Date End Date Edmar Temple MD [address] [place] [phone] PCP - General 11/21/13 documented as of this encounter
--- OUTSIDE RECORDS SUMMARY | 2024-04-22 04:26 | XMS_ITS | Encounter Summary ---
Author Organization [facility] Address [address] [place] [address] Care Team Providers Care Belt Conveyor Drier Name Role Phone Edmar Temple MD Primary Care Provider [phone] Reason for Visit * Reason Onset Date Comments DME 11/21/2019 Encounter Details Date Type Department Care Team (Late st Contact Info) Description 11/21/2019 Telephone [facility] Endocrinology - [facility] [address] [place] [address] Shankia Aquino NP [address] [facility] [address] [place] [address] DME Social History Tobacco Use Types Packs/Day Years Used Date Smoking Tobacco: Former Cigarettes Q uit: 09/26/2003 Smokeless Tobacco: Never Alcohol Use Standard Drinks/Week Comments Yes 0 (1 standard drink = 0.6 oz pure alcohol) social does not tolerate well since bariatric surgery Sex and Gender Information Value Date Recorded [...] No 03/02/2018 documented as of this encounter Miscellaneous Notes * Telephone Encounter - Lynda Smith 11/22/2019 1133 EST Patient has been rescheduled to 12/25 @ 9:30 * Telephone Encounter - Beau Lassiter - 11/21/2019 1429 EST Called patient to reschedule bumped 3. appointment with Shanika Aquino ELECTRONIC WIRER. Patient mentioned her CGM through Dexcom runs out on January 02 as well as Omnipod. documented in this encounter Plan of Treatment Upcoming Encounters Date Type Department Care Team (Late st Contact Info) Description 05/17/2024 13:00 EDT Office Visit [facility] Endocrinology [address] [phone] Twyla Mcclellan NP [address] [place] [phone] 08/30/2024 14:00 EST Office Visit [facility] Endocrinology [address] [phone] Twyla Mcclellan NP [address] [place] [phone] documented as of this encounter Visit Diagnoses Not on filedocumented in this encounter Care Teams Belt Conveyor Drier Relationship Specialty Start Date End Date Edmar Temple MD [address] [place] [address] [address] [place] [phone] PCP - General 11/21/13 documented as of this encounter
--- OUTSIDE RECORDS SUMMARY | 2024-04-22 04:26 | XMS_ITS | Encounter Summary ---
Author Organization [facility] Address [address] [place] [address] Care Team Providers Care Jacquard Loom Fixer Name Role Phone Edmar Temple MD Primary Care Provider [phone] Reason for Visit * Reason Onset Date Comments Medications Refill 08/03/2022 Encounter Details Date Type Department Care Team (Late st Contact Info) Description 08/03/2022 Refill [facility] Endocrinology - [address] [address] Twyla Mcclellan NP 62 [facility] [address] [place] [address] Medications Refill Social History Tobacco [...] Dispensed Refills Start Date End Da te FREESTYLE TEST test stripsIndications:Type 2 diabetes mellitus with hyperglycemia ([facility]) 1 Strip as needed (backup CGM). Freestyle test strips ,Use 4-5 times daily , E11.9, insulin dependent 100 Each 08/04/2022 10/06/2022 documented in this encounter Miscellaneous Notes * Telephone Encounter - Minerva Wallis NP - 08/04/2022 1127 EST Pt last seen 07/04/2021, follow up scheduled 09/07/2022. * Telephone Encounter - Minerva Wallis NP - 08/04/2022 1126 ESTFrom: Kymberly Stewart To: Office of Twyla Mcclellan NP Sent: 08/03/2022 11:49 EST Subject: Medication Renewal Request Refills have been requested for the following medications: FREESTYLE TEST test strips [Shanika Aquino] Preferred pharmacy: [facility] [address] [place], [place] - [address] documented in this encounter Plan of Treatment Upcoming Encounters Date Type Department Care Team (Late st Contact Info) Description 05/17/2024 13:00 EDT Office Visit [facility] Endocrinology - [address] [address] Twyla Mcclellan NP [address] [place] [phone] 08/30/2024 14:00 EST Office Visit [facility] Endocrinology [address] [address] Twyla Mcclellan NP [address] [place] [phone] documented as of this encounter Visit Diagnoses Diagnosis Type 2 diabetes mellitus with hyperglycemia ([facility])- Primary Type II or unspecified type diabetes mellitus without mention of complication, not stated as uncontrolled documented in this encounter Discontinued Medications Medication Sig Discontinue Reason Start Date End Da te FREESTYLE TEST test stripsIndications:Type 2 diabetes mellitus with hyperglycemia ([facility]) 1 Strip as needed (backup CGM). Freestyle test strips ,Use 4-5 times daily , E11.9, insulin dependent Reorder 04/24/2020 08/03/2022 documented as of this encounter Care Teams Jacquard Loom Fixer Relationship Specialty Start Date End Date Edmar Temple MD [facility] [address] [place] [phone] PCP - General 11/21/13 documented as of this encounter
--- OUTSIDE RECORDS SUMMARY | 2024-04-22 04:26 | XMS_ITS | Encounter Summary ---
Author Organization [facility] Address [address] [place] [address] Care Team Providers Care Administrator Social Welfare Name Role Phone Edmar Temple MD Primary Care Provider [phone] Reason for Visit * Reason Onset Date Comments Medications Refill 03/08/2019 Encounter Details Date Type Department Care Team (Late st Contact Info) Description 03/08/2019 Refill [facility] Endocrinology - [facility] [address] [place] [address] Shanika Aquino NP 62 [facility] [address] [place] [address] Medications Refill Social History Tobacco [...] Dispensed Refills Start Date End Da te semaglutide 1 mg/dose (2 mg/1.5 mL) pen injector Inject 1 mg into the skin once a week. Pt has discount coupon 6 Syringe 3 03/08/2019 12/20/2019 documented in this encounter Miscellaneous Notes * Telephone Encounter - Jeffrey De La Rosa RN - 03/08/2019 1255 EDTFrom: Kymberly Stewart Sent: 03/08/2019 12:54 EDT Subject: Medication Renewal Request Kymberly Stewart would like a refill of the following medications: semaglutide 1 mg/dose (2 mg/1.5 mL) pen injector [Shanika Aquino NP] Preferred pharmacy: [facility] [address] [place], [place] - [address] documented in this encounter Plan of Treatment Upcoming Encounters Date Type Department Care Team (Late st Contact Info) Description 05/17/2024 13:00 EDT Office Visit [facility] Endocrinology - [address] [phone] Twyla Mcclellan NP [address] [place] [phone] 08/30/2024 14:00 EST Office Visit [address] [phone] Twyla Mcclellan NP [address] [place] [phone] documented as of this encounter Visit Diagnoses Not on filedocumented in this encounter Discontinued Medications Medication Sig Discontinue Reason Start Date End Da te liraglutide (VICTOZA 3-NIKA) 0.6 mg/0.1 mL (18 mg/3 mL) injectable penIndications:Acquired hypothyroidism INJECT 1.8 MG INTO THE SKIN DAILY Duplicate Therapy 01/17/2019 03/08/2019 semaglutide 1 mg/dose (2 mg/1.5 mL) pen injector Inject 1 mg into the skin once a week. Pt has discount coupon Reorder 01/25/2019 03/08/2019 documented as of this encounter Care Teams Administrator Social Welfare Relationship Specialty Start Date End Date Edmar Temple MD [address] [place] [address] [address] [place] [phone] PCP - General 11/21/13 documented as of this encounter
--- OUTSIDE RECORDS SUMMARY | 2024-04-22 04:26 | XMS_ITS | Encounter Summary ---
Author Organization [facility] Address [address] [place] [address] Care Team Providers Care Dining Service Inspector Name Role Phone Edmar Temple MD Primary Care Provider [phone] Reason for Visit * Reason Comments Diabetes Encounter Details Date Type Department Care Team (Latest Contact Info) Description 01/21/2023 8:30 EDT Telemedicine [facility] Endocrinology - [facility] [address] [place] [address] Twyla Mcclellan NP [address] [facility] [address] [place] [address] Type 2 diabetes mellitus with hyperglycemia, with long-term current use of insulin ([facility]) (Primary Dx) Social History Tobacco Use Types Packs/Day Years [...] Dispensed Refills Start Date End Da te insulin glargine (LANTUS SOLOSTAR/SEMGLEE) 100 unit/mL (3 mL) injection penIndications:Type 2 diabetes mellitus with hyperglycemia, with long-term current use of insulin ([facility]) Inject 60 Units into the skin at bedtime. Pump back up. Save to file 15 Each 01/21/2023 semaglutide 2 mg/dose (8 mg/3 mL) pen injectorIndications:Type 2 diabetes mellitus with hyperglycemia, with long-term current use of insulin ([facility]) Inject 2 mg into the skin every 7 days. 9 mL 3 01/21/2023 04/06/2023 documented in this encounter Progress Notes * Twyla Mcclellan NP - 01/21/2023 0830 EDT TELEMEDICINE VIDEO VISIT Today's visit was provided through telemedicine video conferencing: I have reviewed the appropriateness of using video technology with the patient with regards to today's visit. The location of the patient : Home Patient location state: Visit Location State: [place] The location of the provider: Home Office Provider location state: Visit Location State: [place] The following people and their roles were present for today's visit: Appointment Provider: Twyla Mcclellan NP Kimberly S Bruder Laurie M Davignon, NP The concept of ???Telemedicine?? has been [...] copays, deductible or coinsurance for this service. [facility] Diabetes Follow-Up Note Kymberly Stewart presents over zoom today CHIEF COMPLAINT: Chief Complaint Patient presents with ??? Diabetes HPI: Kymberly Stewart has had diabetes since age 22 Kymberly Stewart recently has a history of being in good glycemic control. Patient has a history of being noncompliant some of the time with medical therapy. Glucose monitoring: dexcom. Home Blood Glucoses Running: BGs range between 42 and 380. Patient corrects for high blood sugar consistently, utilizes multiple injection/infusion sites and adjusting insulin doses in-between visits based on blood glucose trends Patient has a current medication list which includes the following prescription(s): acetaminophen, amlodipine, atorvastatin, blood glucose, dexcom g6 transmitter, calcium carbonate/vitamin d3, cholecalciferol (vitamin d3), cinnamon bark, citalopram, cyanocobalamin (vitamin b-12), dexcom g6 sensor, f errous sulfate, insulin glargine, insulin lispro, omnipod 5 g6 intro kit (gen 5), omnipod 5 g6 pods(gen 5), levothyroxine, losartan, metformin, multivitamin, ozempic, vitamin b complex, and vitamin e. Kymberly Stewart now using omnipod 5 with dexcom. She was in the habit of bolusing post meal, d/t vomiting but since frenulectomy in 04/2021, she has had no vomiting. She is sleeping better, minimal headaches. She reports that her job is very stressful She has switch to omnipod 5 in 09/2022, she was having many connection issues with it and now is better now that her dexcom is linked to iphone, hew pods are now lasting as they should and the connection issues resolved. Needs to make eye exam Patient's CGM was downloaded and I reviewed the last 12 days worth of data for further diabetes medication management and titration. Download shows 42 % time in range, 0 % low, 0 % very low, 29% high and 29% very high. review of patterns showed very [...] is: moderately active. Social History Tobacco Use ??? Smoking status: Former Types: Cigarettes Quit date: 09/26/2003 Years since quittin.3 ??? Smokeless tobacco: Never Substance Use Topics ??? Alcohol use: Yes Comment: social does not tolerate well since bariatric surgery PHYSICAL EXAMINATION: Vitals: There were no vitals taken for this visit. BMI: There is no height or weight on file to calculate BMI. Physical Exam Constitutional: Appearance: She is obese. Cardiovascular: Rate and Rhythm: Normal rate and regular rhythm. Pulses: Normal pulses. Heart sounds: Normal heart sounds. Pulmonary: Effort: Pulmonary effort is normal. Breath sounds: Normal breath sounds. Neurological: General: No focal deficit present. Mental Status: She is alert and oriented to person, place, and time. Psychiatric: Mood and Affect: Mood normal. Behavior: Behavior normal. Thought Content: Thought content normal. Judgment: Judgment normal. LABS: Lab Results Component Value Date HGBA1C 8.2 (H) 09/07/2022 No results found for: CHOL, HDL, LDLBASE, TRIG, CHOLHDL Lab Results Component Value Date BUN 10 11/08/2009 CREATININE 0.70 04/14/2011 NA 140 11/08/2009 K 4.4 11/08/2009 Lab Results Component Value Date ALT 16 04/14/2011 Lab Results Component Value Date LABALBU 4.5 11/08/2009 UCREA 252.1 11/08/2009 MICRALBCRRAT 7.1 11/08/2009 ASSESSMENT: No diagnosis found. PLAN: Medications: A1c ordered She does use her correction regularly, but very little bolusing for carbs We discussed the importance of timely and accurate bolus Consider setting missed bolus alarms Change insulin:carb to 1:9 Continue correction 15 Pt to schedule eye exam Metformin 1000mg twice daily Will increase to Ozmepic 2mg weekly Hypothyroidism: Continue LT4 25mcg daily pending labs Insulin: Insulin stabilization is required:yes Non-insulin: diet. Recommended: Statin therapy and If intolerant to ACEI, then ARB therapy . Glucose monitoring dexcom. Referred to diabetic education program. no Referred to equipment cleaner and tester no. Patient referred to eye critical care specialist for annual dilated eye exam. [...] from a CDE or certified head athletic trainer/strength coach Patient has received pump training from a CDE or certified head athletic trainer/strength coach and agrees to comply with the [facility] Endocrinology Pump Program Guidelines Patient/caregiver has completed [...] time of the visit. Twyla Mcclellan NP 01/21/2023 8:39 documented in this encounter Plan of Treatment Upcoming Encounters Date Type Department Care Team (Late st Contact Info) Description 05/17/2024 13:00 EDT Office Visit [facility] Endocrinology [address] [phone] Twyla Mcclellan NP [address] [place] [phone] 08/30/2024 14:00 EST Office Visit [address] [address] Twyla Mcclellan NP [address] [place] [phone] documented as of this encounter Visit Diagnoses Diagnosis Type 2 diabetes mellitus with hyperglycemia, with long-term current use of insulin ([facility] Primary documented in this encounter Discontinued Medications Medication Sig Discontinue Reason Start Date End Da te insulin glargine (LANTUS SOLOSTAR/SEMGLEE) 100 unit/mL (3 mL) injection penIndications:Type 2 diabetes mellitus with hyperglycemia, with long-term current use of insulin ([facility]) Inject 60 Units into the skin at bedtime. Pump back up. Save to file Reorder 09/07/2022 01/21/2023 documented as of this encounter Care Teams Dining Service Inspector Relationship Specialty Start Date End Date Edmar Temple MD [address] [place] [phone] PCP - General 11/21/13 documented as of this encounter
--- OUTSIDE RECORDS SUMMARY | 2024-04-22 04:26 | XMS_ITS | Encounter Summary ---
Author Organization [facility] Address [address] [place] [address] Care Team Providers Care Product Management Intern Name Role Phone Edmar Temple MD Primary Care Provider [phone] Reason for Visit * Reason Onset Date Comments DME 10/07/2020 Request for CMN Encounter Details Date Type Department Care Team (Late st Contact Info) Description 10/07/2020 Telephone [facility] Endocrinology - [facility] [address] [place] [address] Shanika Aquino NP 62 [facility] [address] [place] [address] DME (Request for CMN ) Social History Tobacco Use Types Packs/Day Years [...] Miscellaneous Notes * Telephone Encounter - Jeffrey Moore MA - 10/09/2020 1332 EST Electronically faxed Dexcom CMN CGM Therapy/CGM Supplies on 10/09/20 to [phone] * Telephone Encounter - Shanika Chávez MA - 10/07/2020 1037 EST Received incoming fax from [employer] requesting Certificate of Medical Necessity for coverage of Dexcom System. This form was printed and placed in [facility] box to be signed. documented in this encounter Plan of Treatment Upcoming Encounters Date Type Department Care Team (Late st Contact Info) Description 05/17/2024 13:00 EDT Office Visit [facility] Endocrinology - [address] [phone] Twyla Mcclellan NP [address] [place] [phone] 08/30/2024 14:00 EST Office Visit [facility] Endocrinology - [address] [address] Twyla Mcclellan NP [address] [place] [phone] documented as of this encounter Visit Diagnoses Not on filedocumented in this encounter Care Teams Product Management Intern Relationship Specialty Start Date End Date Edmar Temple MD [address] [place] [address] [address] [place] [phone] PCP - General 11/21/13 documented as of this encounter
--- OUTSIDE RECORDS SUMMARY | 2024-04-22 04:26 | XMS_ITS | Encounter Summary ---
Author Organization [facility] Address [address] [place] [address] Care Team Providers Care Dry Yard Worker Name Role Phone Edmar Temple MD Primary Care Provider [phone] Reason for Visit * Reason Onset Date Comments DME 02/07/2021 [facility] Rx for cgm system Encounter Details Date Type Department Care Team (Late st Contact Info) Description 02/07/2021 Telephone [facility] Endocrinology - [facility] [address] [place] [address] Shanika Aquino NP 62 [facility] [address] [place] [address] DME ([facility] Rx for cgm system) Social History Tobacco Use Types Packs/Day Years [...] encounter Miscellaneous Notes * Telephone Encounter - Ania Sotelo MA - 02/07/2021 1451 EDT Received incoming fax from [employer] for Rx cgm Dexcom open hearth furnace operator/transmitter/sensors. Paperwork has been entered into [employer]. documented in this encounter Plan of Treatment Upcoming Encounters Date Type Department Care Team (Late st Contact Info) Description 05/17/2024 13:00 EDT Office Visit [facility] Endocrinology - [address] [address] Twyla Mcclellan NP [address] [place] [phone] 08/30/2024 14:00 EST Office Visit [address] [address] Twyla Mcclellan NP [address] [place] [phone] documented as of this encounter Visit Diagnoses Not on filedocumented in this encounter Care Teams Dry Yard Worker Relationship Specialty Start Date End Date Edmar Temple MD [address] [place] [address] DR[address] [place] [address] PCP - General 11/21/13 documented as of this encounter
--- OUTSIDE RECORDS SUMMARY | 2024-04-22 04:26 | XMS_ITS | Encounter Summary ---
Author Organization [facility] Address [address] [place] [address] Care Team Providers Care Transportation Analyst Name Role Phone Edmar Temple MD Primary Care Provider [phone] Encounter Details Date Type Department Care Team (Late st Contact Info) Description 01/04/2021 Lab Requisition [facility] Pathology & Laboratory Medicine - [address] [address] Edmar Temple MD [address] [place] [address] Encounter for gynecological examination (general) (routine) without abnormal findings Social History Tobacco Use Types Packs/Day Years [...] No 03/02/2018 documented as of this encounter Plan of Treatment Upcoming Encounters Date Type Department Care Team (Late st Contact Info) Description 05/17/2024 13:00 EDT Office Visit [facility] Endocrinology - [address] [address] Twyla Mcclellan NP [address] [address] 08/30/2024 14:00 EST Office Visit [facility] Endocrinology - [address] [address] Twyla Mcclellan NP [address] [place] [phone] documented as of this encounter Procedures Procedure Name Priority Date/Time Associated Diagnosis Comments PAP TEST Today 01/02/2021 10:06 EDT HPV DNA DETECTION WITH GENOTYPING, PCR Today 01/02/2021 10:06 EDT documented in this encounter Results * HUMAN PAPILLOMAVIRUS (HPV) DETECTION-HIGH RISK TYPES (01/02/2021 10:06 EDT) HPV other High Risk types, PCR Negative Negative 01/09/2021 13:52 EDT [facility] Comment:No E6 or E7 mRNA is detected from HPV types 16,18,31,33,35,39,45,51,52,56,58,59,66, and 68 by soap press feeder mediated amplification. Papanicolaou smear specimen (specimen) CERVIX UTERI STRUCTURE / Unknown 01/02/2021 10:06 EDT 01/08/2021 12:15 EDT Edmar Temple MD MICROBIOLOGY - GENER AL ORDERABLES [facility] [address] [place] [address] * PAP TEST (01/02/2021 10:06 EDT) Specimens A. Cervix and/or Endocervix , ThinPrep Imaging System with Manual Evaluation 01/09/2021 13:53 T [facility] Specimen Adequacy Satisfactory for Evaluation - transformation zone component absent 01/09/2021 13:53 EDT [facility] General Categorization Negative for intraepithelial lesion or malignancy 01/09/2021 13:53 EDT [facility] Attestation . 01/09/2021 13:53 EDT [facility] at 1352 Clinical History Clinical History, Signs, Symptoms, Chief Complaint, Pertaining to This Order: See below Last Menstral Period: 12/07/20 01/09/2021 13:53 EDT [facility] HPV The result for the Human Papillomavirus (HPV) Detection-High Risk Types is Negative. No E6 or E7 mRNA is detected from HPV types 16,18,31,33,35,39 ,45,51,52,56,58,5 9,66, and 68 by soap press feeder mediated amplification.Lara ting was performed on specimen [id number] and was resulted on 01/09/2021 1335 EDT by JD, LAB INSTRUMENT RESULTS IN 01/09/2021 13:53 EDT [facility] Performing Lab [facility] 01/09/2021 13:53 EDT [facility] Scanned Images 01/09/2021 13:53 EDT [facility] Papanicolaou smear specimen (specimen) CERVIX UTERI STRUCTURE / Unknown 01/02/2021 10:06 EDT 01/06/2021 10:48 EDT Edmar Temple MD PATHOLOGY ORDERABLES [facility] [address] [place] [address] documented in this encounter Visit Diagnoses Diagnosis Encounter for gynecological examination (general) (routine) without abnormal findings documented in this encounter Care Teams Transportation Analyst Relationship Specialty Start Date End Date Edmar Temple MD 109 [facility] [address] [place] [address] PCP - General 11/21/13 documented as of this encounter
--- OUTSIDE RECORDS SUMMARY | 2024-04-22 04:26 | XMS_ITS | Encounter Summary ---
Author Organization [facility] Address [address] [place] [address] Care Team Providers Care Marketing Operations Manager Name Role Phone Edmar Temple MD Primary Care Provider [phone] Reason for Visit * Reason Onset Date Comments DME 10/08/2022 [facility] - docume ntation Encounter Details Date Type Department Care Team (Late st Contact Info) Description 10/08/2022 Telephone [facility] Endocrinology - [facility] [address] [place] [address] Twyla Mcclellan NP 62 [facility] [address] [place] [address] DME ([facility] - documentation) Social History Tobacco Use Types Packs/Day Years [...] Telephone Encounter - Ania Sotelo MA - 10/08/2022 7033 EST E faxed [facility] clinical note from 09/07/22 and 07/04/2021 to [phone] documented in this encounter Plan of Treatment Upcoming Encounters Date Type Department Care Team (Late st Contact Info) Description 05/17/2024 13:00 EDT Office Visit [address] [address] Twyla Mcclellan NP [address] [place] [phone] 08/30/2024 14:00 EST Office Visit [address] [address] Twyla Mcclellan NP [address] [place] [phone] documented as of this encounter Visit Diagnoses Not on filedocumented in this encounter Care Teams Marketing Operations Manager Relationship Specialty Start Date End Date Edmar Temple MD [address] [place] [phone] PCP - General 11/21/13 documented as of this encounter
--- OUTSIDE RECORDS SUMMARY | 2024-04-22 04:26 | XMS_ITS | Encounter Summary ---
Author Organization [facility] Address [address] [place] [address] Care Team Providers Care Rail Track Maintainer Name Role Phone Edmar Temple MD Primary Care Provider Reason for Visit * Reason Onset Date Comments Medications Refill 05/02/2020 Encounter Details Date Type Department Care Team (Late st Contact Info) Description 05/02/2020 Refill [facility] Endocrinology - [facility] [address] [place] [address] Shanika Aquino NP 62 [facility] [address] [place] [address] Medications Refill Social History Tobacco [...] Refills Start Date End Da te insulin lispro (HUMALOG U-100 INSULIN) 100 unit/mL vial 80 Units by subcutaneous - insulin pump route daily. 80 mL 3 05/02/2020 07/04/2021 insulin glargine (LANTUS SOLOSTAR) 100 unit/mL (3 mL) injection penIndications:Diabetes mellitus without complication ([facility]) Inject 60 Units into the skin at bedtime. Pump back up. Save to file 2 Each 3 05/02/2020 09/07/2022 documented in this encounter Plan of Treatment Upcoming Encounters Date Type Department Care Team (Late st Contact Info) Description 05/17/2024 13:00 EDT Office Visit [facility] Endocrinology [address] [phone] Twyla Mcclellan NP [address] [place] [phone] 08/30/2024 14:00 EST Office Visit [address] [phone] Twyla Mcclellan NP [address] [place] [phone] documented as of this encounter Visit Diagnoses Diagnosis Diabetes mellitus without complication ([facility])- Primary Type II or unspecified type diabetes mellitus without mention of complication, not stated as uncontrolled documented in this encounter Discontinued Medications Medication Sig Discontinue Reason Start Date End Da te insulin glargine (LANTUS SOLOSTAR) 100 unit/mL (3 mL) injection penIndications:Diabete s mellitus without complication ([facility]-CMS) Inject 60 Units into the skin at bedtime. Pump back up. Save to file Reorder 04/24/2020 05/02/2020 insulin lispro (HUMALOG U-100 INSULIN) 100 unit/mL vial 80 Units by subcutaneous - insulin pump route daily. Reorder 05/02/2020 05/02/2020 documented as of this encounter Care Teams Rail Track Maintainer Relationship Specialty Start Date End Date Edmar Temple MD [address] [facility] [address] [place] [phone] PCP - General 11/21/13 documented as of this encounter
--- OUTSIDE RECORDS SUMMARY | 2024-04-22 04:26 | XMS_ITS | Encounter Summary ---
Author Organization [facility] Address [address] [place] [address] Care Team Providers Care Inspector Health Care Facilities Name Role Phone Edmar Temple MD Primary Care Provider [phone] Reason for Visit * Reason Comments New Med Request Encounter Details Date Type Department Care Team (Late st Contact Info) Description 10/06/2022 [facility] Endocrinology - [facility] [address] [place] [address] Twyla Mcclellan NP 62 [facility] [address] [place] [address] New Med Request Social History [...] Refills Start Date End Da te semaglutide (OZEMPIC) 1 mg/dose (4 mg/3 mL) pen injector Inject 0.75 mL into the skin once a week. 9 mL 3 10/06/2022 04/06/2023 documented in this encounter Plan of Treatment Upcoming Encounters Date Type Department Care Team (Late st Contact Info) Description 05/17/2024 13:00 EDT Office Visit [facility] Endocrinology [address] [address] Twyla Mcclellan NP [address] [place] [phone] 08/30/2024 14:00 EST Office Visit [address] [address] Twyla Mcclellan NP [address] [place] [phone] documented as of this encounter Visit Diagnoses Not on filedocumented in this encounter Discontinued Medications Medication Sig Discontinue Reason Start Date End Da te semaglutide (OZEMPIC) 1 mg/dose (2 mg/1.5 mL) pen injectorIndications:Type 2 diabetes mellitus with hyperglycemia, with long-term current use of insulin ([facility]) Inject 0.75 mL into the skin once a week. Order modification 09/07/2022 10/06/2022 documented as of this encounter Care Teams Inspector Health Care Facilities Relationship Specialty Start Date End Date Edmar Temple MD [address] [place] [address] DR[address] [place] [phone] PCP - General 11/21/13 documented as of this encounter
--- OUTSIDE RECORDS SUMMARY | 2024-04-22 04:26 | XMS_ITS | Encounter Summary ---
Author Organization [facility] Address [address] [place] [address] Care Team Providers Care Building Analyst/Supervisor Name Role Phone Edmar Temple MD Primary Care Provider [phone] Reason for Visit * Reason Onset Date Comments DME 05/22/2021 Encounter Details Date Type Department Care Team (Late st Contact Info) Description 05/22/2021 Telephone [facility] Endocrinology - [facility] [address] [place] [address] Twyla Mcclellan NP 62 [facility] [address] [place] [address] DME Social History Tobacco Use [...] Telephone Encounter - Jeffrey Moore MA - 05/22/2021 0911 EDT Faxed [facility] for CGM on 05/22/21 to [phone] documented in this encounter Plan of Treatment Upcoming Encounters Date Type Department Care Team (Late st Contact Info) Description 05/17/2024 13:00 EDT Office Visit [facility] Endocrinology [address] [address] Twyla Mcclellan NP [address] [place] [phone] 08/30/2024 14:00 EST Office Visit [facility] - [address] [phone] Twyla Mcclellan NP [address] [place] [phone] documented as of this encounter Visit Diagnoses Not on filedocumented in this encounter Care Teams Building Analyst/Supervisor Relationship Specialty Start Date End Date Edmar Temple MD [address] [place] [address] [address] [place] [phone] PCP - General 11/21/13 documented as of this encounter
--- OUTSIDE RECORDS SUMMARY | 2024-04-22 04:26 | XMS_ITS | Encounter Summary ---
Author Organization [facility] Address [address] [place] [address] Care Team Providers Care Billing Supervisor Name Role Phone Edmar Temple MD Primary Care Provider [phone] Reason for Visit * Reason Onset Date Comments Appointment Related 12/20/2019 Encounter Details Date Type Department Care Team (Late st Contact Info) Description 12/20/2019 Telephone [facility] Endocrinology - [facility] [address] [place] [address] Shanika Aquino NP 62 [facility] [address] [place] [address] Appointment Related Social History Tobacco Use Types Packs/Day Years [...] once a week. Pt has discount coupon 9 mL 3 12/20/2019 03/25/2020 documented in this encounter Miscellaneous Notes * Telephone Encounter - Katey Song RN - 12/25/2019 0933 EDT Images from the original note were not included. Shanika Aquino APRN Endocrinology [facility] Pool 5 days ago ??Please offer pt an appt so can get sensor supplies renewed Routing comment Shanika Aquino APRN [place], Jason 5 days ago Insurances require visits to get supplies renewed. Noted. KATEY CARRILLO RN 12/25/2019 9:34 * Addendum Note - Katey Song RN - 12/20/2019 1214 EDTAddended by: KATEY SONG on: 12/20/2019 12:14 Modules accepted: Orders * Telephone Encounter - Jeffrey Moore - 12/20/2019 1145 EDT Spoke with patient stating that due to the COVID-19 virus we are trying to limit patient exposure and are needing to cancel the appointment scheduled,12/26/19 @ 9:30 AM. Let patient know that at this time we are not rescheduling these appointments, but as soon as everything dies down we will call to reschedule. Patient advised contract technical writer she will need refills for Ozempek 2mg pens. Patient also stated she will need the yearly Dexcom 6 paperwork. Please contact patient and advise regarding medication refills documented in this encounter Plan of Treatment Upcoming Encounters Date Type Department Care Team (Late st Contact Info) Description 05/17/2024 13:00 EDT Office Visit [facility] Endocrinology - [address] [phone] Twyla Mcclellan NP [address] [phone] 08/30/2024 14:00 EST Office Visit [facility] Endocrinology - [address] [address] Twyla Mcclellan NP [address] [phone] documented as of this encounter Visit Diagnoses Not on filedocumented in this encounter Discontinued Medications Medication Sig Discontinue Reason Start Date End Da te semaglutide 1 mg/dose (2 mg/1.5 mL) pen injector Inject 1 mg into the skin once a week. Pt has discount coupon Reorder 03/08/2019 12/20/2019 documented as of this encounter Care Teams Billing Supervisor Relationship Specialty Start Date End Date Edmar Temple MD [address] [place] [address] [employer] [address] [place] [address] PCP - General 11/21/13 documented as of this encounter
--- OUTSIDE RECORDS SUMMARY | 2024-04-22 04:26 | XMS_ITS | Encounter Summary ---
Author Organization [facility] Address [address] [place] [address] Care Team Providers Care Laboratory Chemical Assistant Name Role Phone Edmar Temple MD Primary Care Provider [phone] Reason for Visit * Reason Onset Date Comments DME 11/27/2020 CGM order form r equest Follow-up 12/02/2020 Follow-up 12/10/2020 Follow-up 12/17/2020 Encounter Details Date Type Department Care Team (Late st Contact Info) Description 11/27/2020 Telephone [facility] Endocrinology - [facility] [address] [place] [address] Shanika Aquino NP 62 [facility] [address] [place] [address] DME (CGM order form request ); Follow-up; Follow-up; Follow-up Social History Tobacco Use Types Packs/Day Years [...] Telephone Encounter - Jeffrey Moore MA - 12/18/2020 1126 EDT Electronically faxed [facility] for CGM/CGM Supplies on 12/18/20 to [phone] * Telephone Encounter - Yfn Almaraz - 12/17/2020 0926 EDT [place] from [employer] calling to follow up on order form request that needs to be filled out by Lazara Aquino. She states that patient is out of supplies and they are trying to get them to her. They need the form they sent over at beginning of the month sent back as soon as possible. She stated that she was going to be resending another form in case original was lost. Please send completed paperwork back to her at [phone]. * Telephone Encounter - Zunilda Valdovinos - 12/10/2020 1524 EDT [facility] calling again for script follow up * Telephone Encounter - Nithya Dixon - 12/02/2020 1142 EDT Per [facility] Patricia, requesting a call back with status of the CGM sensors, transmitter and product support technician request. * Telephone Encounter - Shanika Chávez MA - 11/27/2020 1500 EST Received incoming physician order request from [employer] for CGM sensors, transmitter and product support technician. This form has been printed and placed in Lazara Aquino's folder to be signed. documented in this encounter Plan of Treatment Upcoming Encounters Date Type Department Care Team (Late st Contact Info) Description 05/17/2024 13:00 EDT Office Visit [facility] Endocrinology [address] [address] Twyla Mcclellan NP [address] [place] [phone] 08/30/2024 14:00 EST Office Visit [address] [address] Twyla Mcclellan NP [address] [place] [phone] documented as of this encounter Visit Diagnoses Not on filedocumented in this encounter Care Teams Laboratory Chemical Assistant Relationship Specialty Start Date End Date Edmar Temple MD [address] [place] [phone] PCP - General 11/21/13 documented as of this encounter
--- OUTSIDE RECORDS SUMMARY | 2024-04-22 04:26 | XMS_ITS | Encounter Summary ---
Author Organization [facility] Address [address] [place] [address] Care Team Providers Care Pizza Delivery Driver Name Role Phone Edmar Temple MD Primary Care Provider [phone] Reason for Visit * Reason Comments Medications Refill Encounter Details Date Type Department Care Team (Late st Contact Info) Description 09/09/2022 Refill [facility] Endocrinology - [facility] [address] [place], [place] [phone] Twyla Mcclellan NP 62 [facility] [address] [place] [address] Medications Refill Social History Tobacco [...] End Da te DEXCOM G6 SENSOR device USE 1 DEVICE EVERY 10 DAYS 9 Each 3 09/10/2022 09/02/2023 documented in this encounter Miscellaneous Notes * Telephone Encounter - Minerva Wallis NP - 09/10/2022 0730 EST Pt last seen 09/07/2022. documented in this encounter Plan of Treatment Upcoming Encounters Date Type Department Care Team (Late st Contact Info) Description 05/17/2024 13:00 EDT Office Visit [facility] Endocrinology [address] [phone] Twyla Mcclellan NP [address] [place] [phone] 08/30/2024 14:00 EST Office Visit [address] [phone] Twyla Mcclellan NP [address] [place] [phone] documented as of this encounter Visit Diagnoses Not on filedocumented in this encounter Discontinued Medications Medication Sig Discontinue Reason Start Date End Da te Blood-Glucose Sensor (DEXCOM G6 SENSOR) device 1 Device by misc (non-drug; combo route) route every 10 days. E11.65 insulin dependent 09/17/2021 09/10/2022 documented as of this encounter Care Teams Pizza Delivery Driver Relationship Specialty Start Date End Date Edmar Temple MD [address] [place] [address] [place] [phone] PCP - General 11/21/13 documented as of this encounter
--- OUTSIDE RECORDS SUMMARY | 2024-04-22 04:26 | XMS_ITS | Encounter Summary ---
Author Organization [facility] Address [address] [place] [address] Care Team Providers Care Motor Vehicle Examiner Name Role Phone Edmar Temple MD Primary Care Provider [phone] Reason for Visit * Reason Comments New Med Request Encounter Details Date Type Department Care Team (Late st Contact Info) Description 03/29/2023 [facility] Endocrinology - [facility] [address] [place] [address] Twyla Mcclellan NP 62 [facility] [address] [place] [address] New Med Request Social History [...] Start Date End Da te semaglutide (OZEMPIC) 2 mg/dose (8 mg/3 mL) pen injectorIndications:Type 2 diabetes mellitus with hyperglycemia, with long-term current use of insulin ([facility]) Inject 2 mg into the skin once a week. 9 mL 3 04/06/2023 documented in this encounter Miscellaneous Notes * Telephone Encounter - Timothy De La Rosa RN - 04/06/2023 0955 EDT Humalog sent to [facility] 04/02/23 Ozempic refilled 01/21/23 to local pharmacy by provider. Script transferred to [facility] TIMOTHY DE LA ROSA RN 04/06/2023 9:59 documented in this encounter Plan of Treatment Upcoming Encounters Date Type Department Care Team (Late st Contact Info) Description 05/17/2024 13:00 EDT Office Visit [facility] Endocrinology - [address] [address] Twyla Mcclellan NP [address] [place] [phone] 08/30/2024 14:00 EST Office Visit [facility] Endocrinology [address] [id number] Twyla Mcclellan NP [address] [place] [phone] documented as of this encounter Visit Diagnoses Diagnosis Type 2 diabetes mellitus with hyperglycemia, with long-term current use of insulin ([facility])- Primary documented in this encounter Discontinued Medications Medication Sig Discontinue Reason Start Date End Da te semaglutide (OZEMPIC) 1 mg/dose (4 mg/3 mL) pen injector Inject 0.75 mL into the skin once a week. Dose adjustment 10/06/2022 04/06/2023 semaglutide 2 mg/dose (8 mg/3 mL) pen injectorIndications:Type 2 diabetes mellitus with hyperglycemia, with long-term current use of insulin ([facility]) Inject 2 mg into the skin every 7 days. 01/21/2023 04/06/2023 documented as of this encounter Care Teams Motor Vehicle Examiner Relationship Specialty Start Date End Date Edmar Temple MD [address] [place] [address] [address] [place] [address] PCP - General 11/21/13 documented as of this encounter
--- OUTSIDE RECORDS SUMMARY | 2024-04-22 04:26 | XMS_ITS | Encounter Summary ---
Author Organization [facility] Address [address] [place] [address] Care Team Providers Care Mill Platform Supervisor Name Role Phone Edmar Temple MD Primary Care Provider [phone] Reason for Visit * Reason Comments New Med Request Encounter Details Date Type Department Care Team (Late st Contact Info) Description 10/06/2022 [facility] Endocrinology - [facility] [address] [place] [address] Twyla Mcclellan NP 62 [facility] [address] [place] [address] New Med Request Social History [...] hyperglycemia, with long-term current use of insulin ([facility]) Inject up to 120 units daily via insulin pump. 110 mL 1 10/06/2022 03/18/2023 documented in this encounter Plan of Treatment Upcoming Encounters Date Type Department Care Team (Late st Contact Info) Description 05/17/2024 13:00 EDT Office Visit [address] [phone] Twyla Mcclellan NP [address] [place] [phone] 08/30/2024 14:00 EST Office Visit [address] [phone] Twyla Mcclellan NP [address] [place] [phone] documented as of this encounter Visit Diagnoses Diagnosis Type 2 diabetes mellitus with hyperglycemia, with long-term current use of insulin ([facility])- Primary documented in this encounter Discontinued Medications Medication Sig Discontinue Reason Start Date End Da te insulin lispro (HUMALOG U-100 INSULIN) 100 unit/mL vialIndications:Type 2 diabetes mellitus with hyperglycemia, with long-term current use of insulin ([facility]) INJECT 120 UNITS DAILY 09/07/2022 10/06/2022 documented as of this encounter Care Teams Mill Platform Supervisor Relationship Specialty Start Date End Date Edmar Temple MD [address] [place] [address] [employer] [address] [place] [address] PCP - General 11/21/13 documented as of this encounter
--- OUTSIDE RECORDS SUMMARY | 2024-04-22 04:26 | XMS_ITS | Encounter Summary ---
Author Organization [facility] Address [address] [place] [address] Care Team Providers Care Flake [employer] Name Role Phone Edmar Temple MD Primary Care Provider [phone] Reason for Visit * Reason Comments Other Encounter Details Date Type Department Care Team (Late st Contact Info) Description 10/09/2021 [facility] Endocrinology - [facility] [address] [place] [address] Shanika Aquino NP [address] [facility] [address] [place] [address] Other Social History Tobacco Use Types Packs/Day Years [...] Refills Start Date End Da te metFORMIN (GLUCOPHAGE) 1,000 mg tablet TAKE 1 TABLET TWICE A DAY 180 Tablet 3 10/10/2021 09/07/2022 documented in this encounter Plan of Treatment Upcoming Encounters Date Type Department Care Team (Late st Contact Info) Description 05/17/2024 13:00 EDT Office Visit [facility] Endocrinology [address] [phone] Twyla Mcclellan NP [address] [place] [phone] 08/30/2024 14:00 EST Office Visit [address] [address] Twyla Mcclellan NP [address] [place] [phone] documented as of this encounter Visit Diagnoses Not on filedocumented in this encounter Discontinued Medications Medication Sig Discontinue Reason Start Date End Da te metFORMIN (GLUCOPHAGE) 1,000 mg tablet TAKE 1 TABLET TWICE A DAY 11/13/2020 10/10/2021 documented as of this encounter Care Teams Fl[employer] Relationship Specialty Start Date End Date Edmar Temple MD [address] [place] [address] [address] [place] [phone] PCP - General 11/21/13 documented as of this encounter
--- OUTSIDE RECORDS SUMMARY | 2024-04-22 04:26 | XMS_ITS | Encounter Summary ---
Author Organization [facility] Address [address] [place] [address] Care Team Providers Care Actuarial Technician Name Role Phone Edmar Temple MD Primary Care Provider [phone] Reason for Visit * Reason Onset Date Comments Medications Refill 03/18/2023 Encounter Details Date Type Department Care Team (Late st Contact Info) Description 03/18/2023 Refill [facility] Endocrinology - [facility] [address] [place] [address] Twyla Mcclellan NP 62 [facility] [address] [place] [address] Medications Refill Social History Tobacco [...] with long-term current use of insulin ([facility]) Inject up to 120 units daily via insulin pump. 110 mL 3 04/01/2023 documented in this encounter Miscellaneous Notes * Telephone Encounter - Timothy De La Rosa RN - 04/01/2023 0653 EDT From: Kymberly Stewart To: Office of Twyla Mcclellan NP Sent: 03/18/2023 12:50 EDT Subject: Medication Renewal Request Refills have been requested for the following medications: insulin lispro (HUMALOG U-100 INSULIN) 100 unit/mL vial [Twyla Mcclellan] Preferred pharmacy: [facility] - [address] NOV: 11/17/23 PRIETO: 01/21/23 TIMOTHY DE LA ROSA RN 04/01/2023 6:55 documented in this encounter Plan of Treatment Upcoming Encounters Date Type Department Care Team (Late st Contact Info) Description 05/17/2024 13:00 EDT Office Visit [facility] Endocrinology - [address] [phone] Twyla Mcclellan NP [address] [place] [phone] 08/30/2024 14:00 EST Office Visit [facility] Endocrinology - [address] [address] Twyla Mcclellan NP [address] [place] [phone] documented as of this encounter Visit Diagnoses Diagnosis Type 2 diabetes mellitus with hyperglycemia, with long-term current use of insulin ([facility])- Primary documented in this encounter Discontinued Medications Medication Sig Discontinue Reason Start Date End Da te insulin lispro (HUMALOG U-100 INSULIN) 100 unit/mL vialIndications:Type 2 diabetes mellitus with hyperglycemia, with long-term current use of insulin ([facility]) Inject up to 120 units daily via insulin pump. Reorder 10/06/2022 03/18/2023 documented as of this encounter Care Teams Actuarial Technician Relationship Specialty Start Date End Date Edmar Temple MD [address] [place] [phone] PCP - General 11/21/13 documented as of this encounter
--- OUTSIDE RECORDS SUMMARY | 2024-04-22 04:26 | XMS_ITS | Encounter Summary ---
Author Organization [facility] Address [address] [place] [address] Care Team Providers Care Training Development Manager Name Role Phone Edmar Temple MD Primary Care Provider [phone] Reason for Visit * Reason Onset Date Comments Medications Refill 03/18/2023 Encounter Details Date Type Department Care Team (Late st Contact Info) Description 03/18/2023 Refill [facility] Endocrinology - [facility] [address] [place] [address] Twyla Mcclellan NP 62 [facility] [address] [place] [address] Medications Refill Social History Tobacco [...] Refills Start Date End Da te insulin pump cart,automated,BT (OMNIPOD 5 G6 PODS, GEN 5,) cartridge Inject 1 Each into the skin every 48 hours. 45 Each 3 04/01/2023 09/07/2023 documented in this encounter Miscellaneous Notes * Telephone Encounter - Timothy De La Rosa RN - 04/01/2023 0652 EDT From: Kymberly Stewart To: Office of Twyla Mcclellan NP Sent: 03/18/2023 12:49 EDT Subject: Medication Renewal Request Refills have been requested for the following medications: insulin pump cart,automated,BT (OMNIPOD 5 G6 PODS, GEN 5,) cartridge [Twyla Mcclellan] Preferred pharmacy: [facility] [address] [place], [place] - [address] Rx sent 10/05/22 to [facility]. Resent script to local pharmacy per pt MC request above. TIMOTHY DE LA ROSA RN 04/01/2023 6:53 documented in this encounter Plan of Treatment Upcoming Encounters Date Type Department Care Team (Late st Contact Info) Description 05/17/2024 13:00 EDT Office Visit [facility] Endocrinology - [address] [address] Twyla Mcclellan NP [address] [place] [phone] 08/30/2024 14:00 EST Office Visit [facility] Endocrinology [address] [address] Twyla Mcclellan NP [address] [place] [phone] documented as of this encounter Visit Diagnoses Not on filedocumented in this encounter Discontinued Medications Medication Sig Discontinue Reason Start Date End Da te insulin pump cart,automated,BT (OMNIPOD 5 G6 PODS, GEN 5,) cartridge Inject 1 Each into the skin every 48 hours. Reorder 10/05/2022 03/18/2023 documented as of this encounter Care Teams Training Development Manager Relationship Specialty Start Date End Date Edmar Temple MD [address] [place] [address] 3 [place] [phone] PCP - General 11/21/13 documented as of this encounter
--- OUTSIDE RECORDS SUMMARY | 2024-04-22 04:26 | XMS_ITS | Encounter Summary ---
Author Organization [facility] Address [address] [place] [address] Care Team Providers Care Core Oven Tender Name Role Phone Edmar Temple MD Primary Care Provider [phone] Reason for Visit * Reason Onset Date Comments Medications Refill 01/31/2021 Encounter Details Date Type Department Care Team (Late st Contact Info) Description 01/31/2021 Telephone [facility] Endocrinology - [facility] [address] [place] [address] Shanika Aquino NP 62 [facility] [address] [place] [address] Medications Refill Social History Tobacco [...] Refills Start Date End Da te Blood-Glucose Transmitter (DEXCOM G6 TRANSMITTER) device 1 Device by misc (non-drug; combo route) route every 90 days. E11.65 insulin dependent 1 Device 3 01/31/2021 06/24/2021 Blood-Glucose Sensor (DEXCOM G6 SENSOR) device 1 Device by misc (non-drug; combo route) route every 10 days. E11.65 insulin dependent 6 Device 3 01/31/2021 09/15/2021 documented in this encounter Miscellaneous Notes * Telephone Encounter - Shante Hansen - 01/31/2021 1034 EDT Medication(s) Requested: Dexcom G6 transmitter and sensors (junior technical writer could not order from this page, please call patient if we cannot prescribe) Pharmacy: [facility] [address] [place], [place] - [address]?[phone] Next Visit Date 07/04/2021 01/02/2021 Out of Medication? Yes Shante Hansen 01/31/2021 10:34 documented in this encounter Plan of Treatment Upcoming Encounters Date Type Department Care Team (Late st Contact Info) Description 05/17/2024 13:00 EDT Office Visit [facility] Endocrinology - [address] [phone] Twyla Mcclellan NP [address] [place] [phone] 08/30/2024 14:00 EST Office Visit [facility] Endocrinology [address] [address] Twyla Mcclellan NP [address] [place] [phone] documented as of this encounter Visit Diagnoses Not on filedocumented in this encounter Care Teams Core Oven Tender Relationship Specialty Start Date End Date Edmar Temple MD [address] [place] [phone] PCP - General 11/21/13 documented as of this encounter
--- OUTSIDE RECORDS SUMMARY | 2024-04-22 04:26 | XMS_ITS | Encounter Summary ---
Author Organization [facility] Address [address] [place] [address] Care Team Providers Care Electrical Engineering Technologist Name Role Phone Edmar Temple MD Primary Care Provider [phone] Reason for Visit * Reason Onset Date Comments Appointment Related 01/18/2022 called to randell avilez Encounter Details Date Type Department Care Team (Late st Contact Info) Description 01/18/2022 Telephone [facility] Endocrinology - [facility] [address] [place] [address] Twyla Mcclellan NP 62 [facility] [address] [place] [address] Appointment Related (called to cancel) Social History Tobacco Use Types Packs/Day Years [...] encounter Miscellaneous Notes * Telephone Encounter - uLna Peoples - 01/18/20222033 EDT Pt called to cancel appt on 01/19 @ 16:00. Due to testing + for covid. Please call pt to reschedule. documented in this encounter Plan of Treatment Upcoming Encounters Date Type Department Care Team (Late st Contact Info) Description 05/17/2024 13:00 EDT Office Visit [facility] Endocrinology [address] [phone] Twyla Mcclellan NP [address] [place] [phone] 08/30/2024 14:00 EST Office Visit [address] [address] Twyla Mcclellan NP [address] [place] [phone] documented as of this encounter Visit Diagnoses Not on filedocumented in this encounter Care Teams Electrical Engineering Technologist Relationship Specialty Start Date End Date Edmar Temple MD [address] [place] [phone] PCP - General 11/21/13 documented as of this encounter
--- OUTSIDE RECORDS SUMMARY | 2024-04-22 04:26 | XMS_ITS | Encounter Summary ---
Author Organization [facility] Address [address] [place] [address] Care Team Providers Care Launch Check Out Name Role Phone Edmar Temple MD Primary Care Provider [phone] Reason for Visit * Reason Comments New Med Request Encounter Details Date Type Department Care Team (Late st Contact Info) Description 10/06/2022 [facility] Endocrinology - [facility] [address] [place] [address] Twyla Mcclellan NP 62 [facility] [address] [place] [address] New Med Request Social History [...] Dispensed Refills Start Date End Da te blood glucose (FREESTYLE TEST) test stripsIndications:Type 2 diabetes mellitus with hyperglycemia ([facility]CMS) Use as directed as needed for CGM back up. 100 Each 3 10/06/2022 documented in this encounter Miscellaneous Notes * Telephone Encounter - Minerva Wallis NP - 10/06/2022 1159 EST Pt last seen 09/07/2022. documented in this encounter Plan of Treatment Upcoming Encounters Date Type Department Care Team (Late st Contact Info) Description 05/17/2024 13:00 EDT Office Visit [address] [phone] Twyla Mcclellan NP [address] [place] [phone] 08/30/2024 14:00 EST Office Visit [address] [phone] Twyla Mcclellan NP [address] [place] [phone] documented as of this encounter Visit Diagnoses Diagnosis Type 2 diabetes mellitus with hyperglycemia ([facility])- Primary Type II or unspecified type diabetes mellitus without mention of complication, not stated as uncontrolled documented in this encounter Discontinued Medications Medication Sig Discontinue Reason Start Date End Da te FREESTYLE TEST test stripsIndications:Type 2 diabetes mellitus with hyperglycemia ([facility]CC-CMS) 1 Strip as needed (backup CGM). Freestyle test strips ,Use 4-5 times daily , E11.9, insulin dependent 08/04/2022 10/06/2022 documented as of this encounter Care Teams Launch Check Out Relationship Specialty Start Date End Date Edmar Temple MD [address] [place] [phone] PCP - General 11/21/13 documented as of this encounter
--- OUTSIDE RECORDS SUMMARY | 2024-04-22 04:26 | XMS_ITS | Encounter Summary ---
Author Organization [facility] Address [address] [place] [address] Care Team Providers Care Data Governance Analyst Name Role Phone Edmar Temple MD Primary Care Provider [phone] Reason for Visit * Reason Onset Date Comments Medications Refill 05/06/2020 Encounter Details Date Type Department Care Team (Late st Contact Info) Description 05/06/2020 Refill [facility] Endocrinology - [facility] [address] [place] [address] Shanika Aquino NP 62 [facility] [address] [place] [address] Medications Refill Social History Tobacco [...] (OZEMPIC) 1 mg/dose (2 mg/1.5 mL) pen injector Inject 1 mg into the skin once a week. 9 mL 3 05/06/2020 05/28/2021 documented in this encounter Plan of Treatment Upcoming Encounters Date Type Department Care Team (Late st Contact Info) Description 05/17/2024 13:00 EDT Office Visit [facility] Endocrinology [address] [phone] Twyla Mcclellan NP [address] [place] [phone] 08/30/2024 14:00 EST Office Visit [address] [address] Twyla Mcclellan NP [address] [place] [phone] documented as of this encounter Visit Diagnoses Not on filedocumented in this encounter Discontinued Medications Medication Sig Discontinue Reason Start Date End Da te OZEMPIC 1 mg/dose (2 mg/1.5 mL) pen injector INJECT 1MG(1 INJECTIONS) ONCE A WEEK Reorder 03/25/2020 05/06/2020 documented as of this encounter Care Teams Data Governance Analyst Relationship Specialty Start Date End Date Edmar Temple MD [address] [place] [address] [facility] [address] [place] [phone] PCP - General 11/21/13 documented as of this encounter
--- OUTSIDE RECORDS SUMMARY | 2024-04-22 04:26 | XMS_ITS | Encounter Summary ---
Author Organization [facility] Address [address] [place] [address] Care Team Providers Care Equipment Planner Name Role Phone Edmar Temple MD Primary Care Provider [phone] Reason for Visit * Reason Onset Date Comments DME 11/29/2019 Dexcom - CMN Encounter Details Date Type Department Care Team (Late st Contact Info) Description 11/29/2019 Telephone [facility] Endocrinology - [facility] [address] [place] [address] Shanika Aquino NP [address] [facility] [address] [place] [address] DME (Dexcom - CMN) Social History Tobacco Use Types Packs/Day Years [...] encounter Miscellaneous Notes * Telephone Encounter - Yonatan Franz - 11/29/2019 0939 EDT Faxed CMN for CGM therapy to [facility] at [phone] on 11.29.19. Sent form first before adding Dx code - re-faxed immediately after with Dx code added to form. documented in this encounter Plan of Treatment Upcoming Encounters Date Type Department Care Team (Late st Contact Info) Description 05/17/2024 13:00 EDT Office Visit [facility] Endocrinology [address] [address] Twyla Mcclellan NP [address] [place] [phone] 08/30/2024 14:00 EST Office Visit [address] [phone] Twyla Mcclellan NP [address] [place] [phone] documented as of this encounter Visit Diagnoses Not on filedocumented in this encounter Care Teams Equipment Planner Relationship Specialty Start Date End Date Edmar Temple MD [address] [place] [address] [address] [place] [phone] PCP - General 11/21/13 documented as of this encounter
--- OUTSIDE RECORDS SUMMARY | 2024-04-22 04:26 | XMS_ITS | Encounter Summary ---
Author Organization [facility] Address [address] [place] [address] Care Team Providers Care Steel Fabricator Name Role Phone Edmar Temple MD Primary Care Provider [phone] Reason for Visit * Reason Comments Diabetes Encounter Details Date Type Department Care Team (Latest Contact Info) Description 12/26/2019 9:40 EDT Telemedicine [facility] Endocrinology - [facility] [address] [place] [address] Shanika Aquino NP [address] [facility] [address] [place] [address] Type 2 diabetes mellitus with hyperglycemia, with long-term current use of insulin ([facility]) (Primary Dx); Hyperlipidemia, unspecified hyperlipidemia type; Essential hypertension; 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 No / Unsure 12/26/2019 9:48 EDT documented as of this encounter Last Filed Vital Signs Vital Sign Reading Time Taken Comments Blood Pressure - - Pulse - - Temperature - - Respiratory Rate - - Oxygen Saturation - - Inhaled Oxygen Concentration - - Weight - - Height 170.2 cm (5' 7.01) 12/26/2019 0932 EDT Body Mass Index - - documented in this encounter Functional Status Functional [...] No 03/02/2018 documented as of this encounter Patient Instructions * Patient Instructions* Shanika Aquino APRN - 12/26/2019 9:40 EDT Change CHO:insulin ratio to 12:1 or 10:1 if needed. Try to get back to extended bolus. F/U in 3 months Decrease documented in this encounter Progress Notes * Shanika Aquino APRN - 12/26/2019 0940 EDT Images from the original note were not included. [facility] Diabetes Follow-Up Note ELEMEDICINE VIDEO VISIT Today's visit was provided through telemedicine video conferencing: The location of the patient : Home The location of the provider: Office The following staff and their role did participate in today's encounter visit: Shanika Aquino APRN CHIEF COMPLAINT: Linda Stewart presents in clinic today with: 1. Type 2 diabetes mellitus with hyperglycemia, with long-term current use of insulin ([facility]) 2. Hyperlipidemia, unspecified hyperlipidemia type 3. Essential hypertension 4. 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 Morbid obesity ([facility]) Patient is a 44 y.o. female presenting with diabetes problem. Diabetes PROBLEM: Hypothyroidism, hypertension, sleep apnea, status post gastric bypass, type 2 diabetes controlled on pump therapy, asthma, dyslipidemia. ALLERGIES: She has no known drug allergies. HPI The concept of ???Telemedicine?? has been described to the patient.? Patient has been informedof the anticipated benefits and possible risks.? Patient understands the information provided regarding telemedicine, has had the opportunity to ask questions about this information, and all questions have been answered to patient???s satisfaction. Patient consents for the use of telemedicine in his/her medical care and authorizes the transmission of any relevant medical information to providers and their staff involved in patient???s medical or mental health care. Patient has a video appt today here due to COVID 19 for DM2 followup last seen in office on 07/18/2919. She is working from home and is stressed since children are home and less time to address her own health. She has had chronic sinus infections the last 3 months. Describes mood as ok, but was in a little slump when first home because of COVID 19 restrictions. Diet has slipped with more snacking. At her last visit recommended moving move of her isulin form basal to blus, but did not happen. Results for LINDA STEWART ( ) as of 12/26/2019. Ref. Range 02/28/2016 14:57 07/31/2016 10:19 12/18/2016 13:42 06/15/2017 10:46 10/19/2017 10:30 03/02/2018 15:18 01/06/2019 09:27 07/12/2019 09:33 Hemoglobin A1c, POC Latest Ref Range: 5.7 % 7.6 (A) Hemoglobin A1C, POC Interfaced Latest Ref Range: <5.7 % 8.3 (H) 8.7 (H) 7.8 (H) 7.6 (H) 7.3 (H) 8.9 (H) 6.6 (H) Medications: - Humalog pump - metformin 1000mg BID - Semaglutide 1 mg weekly Levothyroxine Omnipod Pump: Basal rate : Humalog insulin MN 1.0, 8 AM 3.0,10 AM- 21:00 4.0. Carb to insulin ratio is 15:1. Sensitivity is 15:1 for BS>100. Active insulin time 3.0 She tries to use the extended bolus with meals 65% delivered at once and the rest over 2-3 hours. She also uses the temp basal feature with exercise 50% decrease for 1-2 hours or suspends. She uses about 80 units/day most as basal. No recent HgA1c but CGM average represents an HgA1C of 7.9%. Glucose drop late jim to about 2 AM and leval off till eats mid AM when spike. They come down some but remain high all day with another spike after dinner. No major lows. ROS: Symptoms: No chest pain, shortness of breath. infections, skin problems, changes in hearing Hxof gastric bypass surgery. At last visit , reported Episodes of vomiting at dinner much better, butnot discussed today. Eye exam in September showed a small new bleed ion left eye beng monitored for now. The other bleed in that eye has stabilized. Foot care: Performs own foot care. Hypothyroidism: Denies hot cold intolerance constipation diarrhea hair skin changes tremors palpitations hoarseness trouble swallowing She had gastric bypass surgery in July of 2009. Her highest weight was 320 and and lost 61 pounds, - her weight is stable. She denies chest pain, shortness of breath, numbness, tingling, calf pain, no polyuria, polydipsia, polyphagia. No blurred vision and her eye exams are up to date. No hot or cold intolerance, hair or skin changes, constipation, feeling of a lump in her throat, tremors, stomach cramping. She detects her hypoglycemia appropriately around in 70's, but that has not been a major problem. About 1/month at PM. PMH: Her first delivered 03/2005 by an emergency at 38 weeks gestational age. Hewas 8 pounds 2 ounces. She had some hypertension and bleeding during her . Her daughter was born 2010, FT planned C- section Wt. 9 lb 8 oz. Diet/Exercise: Walks regularly with children; diet varies day to day - eating on the run in the AM to get to work. Linda Stewart recently has a history of being in poor glycemic control. Patient's home regimen consists of has a current medication list which includes the following prescription(s): acetaminophen, amlodipine, atorvastatin, calcium carbonate/vitamin d3, cholecalciferol (vitamin d3), cinnamon bark, citalopram, cyanocobalamin (vitamin b-12), ferrous sulfate, freestyle test, insulin glargine, insulin lispro, levothyroxine, losartan, metformin, multivitamin, semaglutide,vitamin b complex, and vitamin e. The patient has experienced the following acute complications: hypoglycemia - mild-moderate and hyperglycemia - mild-moderate. Social History Tobacco Use ??? Smoking status: Former Smoker Last attempt to quit: 09/26/2003 Years since quittin.2 ??? Smokeless tobacco: Never Used Substance Use Topics ??? Alcohol use: Yes Comment: social does not tolerate well since bariatric surgery Labs; see EMR Done at [facility]. 06/29/17 HgA1c was 8.1%, glucose 266, cr 0.61, GFR 107, hemogram in target, urine microalbumin /cr. 11.8. No labs since per [facility]. PHYSICAL EXAMINATION Deferred - video visit There were no vitals taken for this visit. BMI: There is no height or weight on file to calculateBMI. wt IS down 13 pounds. Clinically euthyroid ASSESSMENT/PLAN: Pt with hx of DM2, HTN, gastric bypass. DM2 managed by insulin pump, metformin 1000mg BID, and Semaglutide. Glucose has slipped some with increased stress eating. Need to move insulin from basal to bolus and would help to take at least some pre meal. No undue burden of lows . Pt very motivated to make changes and continue current exercise regime. Clinically euthyroid on levothyroxine 25 mcg daily last TSH normal No recent lipid panel found . She takes Lipitor Management deferred to PCP who she sees 07/31. Blood pressure ,Usually in target today on Losartan & a calcium channel manuelito. Was on an Ismael previously stopped because of a cough.- No proteinuria Hypothyroidism - on Levothyroxin 25 mcg - clinically euthyroid. No recent TSH. But last was unremarkable Referred to diabetic education program. No Referred to psychiatric secretary met with RD, briefly to discuss continuous glucose sensor therapy Patient referred to eye lawn care professional for annual dilated eye exam. Up to date Lifestyle modifications: recommend losing weight Patient does demonstrate knowledge of diabetes and expectations. Patient does understand medication regimen. Barriers to adherence: Financial and Emotional. PLAN: Change CHO:insulin ratio to 12:1 or 10:1 if needed. Try to get back to extended bolus. F/U in 3 months Decrease Shanika Aquino APRN 12/26/2019 7:59 This visit was conducted by video I spent a total of 30 minutes in discussion with the patient as described in the progress note. documented in this encounter Plan of Treatment Upcoming Encounters Date Type Department Care Team (Late st Contact Info) Description 05/17/2024 13:00 EDT Office Visit [facility] Endocrinology - [address] [id number] Twyla Mcclellan NP [address] [place] [phone] 08/30/2024 14:00 EST Office Visit [facility] - [address] [address] Twyla Mcclellan NP [address] [place] [phone] documented as of this encounter Visit Diagnoses Diagnosis Type 2 diabetes mellitus with hyperglycemia, with long-term current use of insulin ([facility])- Primary Hyperlipidemia, unspecified hyperlipidemia type Essential hypertension Unspecified essential hypertension 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
--- OUTSIDE RECORDS SUMMARY | 2024-04-22 04:26 | XMS_ITS | Encounter Summary ---
Author Organization [facility] Address [address] [place] [address] Care Team Providers Care Fire Technology Instructor Name Role Phone Edmar Temple MD Primary Care Provider [phone] Encounter Details Date Type Department Care Team (Late st Contact Info) Description 01/02/2021 Lab Requisition [facility] Pathology & Laboratory Medicine - [address] [address] Outr Resulting Lab, Provider Social History Tobacco Use Types Packs/Day Years [...] Description 05/17/2024 13:00 EDT Office Visit [facility] Endocrinology - [facility] [address] [place] [address] Twyla Mcclellan NP [address] [phone] 08/30/2024 14:00 EST Office Visit [facility] Endocrinology - [facility] [address] [place] [address] Twyla Mcclellan NP [address] [phone] documented as of this encounter Procedures Procedure Name Priority Date/Time Associated Diagnosis Comments VITAMIN B12 Routine 01/02/2021 10:05 EDT documented in this encounter Results * (ABNORMAL) VITAMIN B12 (01/02/2021 10:05 EDT) Vitamin B12 1,794(H) 211 - 911 pg/mL 01/02/2021 22:53 EDT [facility] Blood VENOUS BLOOD / Unknown 01/02/2021 10:05 EDT 01/02/2021 21:58 EDT Provider Outr Resulting Lab CHEMISTRY & BLOOD GAS ORDERABLES [facility] [address] [place] [address] documented in this encounter Visit Diagnoses Not on filedocumented in this encounter Care Teams Fire Technology Instructor Relationship Specialty Start Date End Date Edmar Temple MD [address] [place] [address] PCP - General 11/21/13 documented as of this encounter
--- OUTSIDE RECORDS SUMMARY | 2024-04-22 04:26 | XMS_ITS | Encounter Summary ---
Author Organization [facility] Address [address] [place] [address] Care Team Providers Care Bell Maker Name Role Phone Edmar Temple MD Primary Care Provider [phone] Reason for Visit * Reason Comments Other Encounter Details Date Type Department Care Team (Late st Contact Info) Description 03/24/2020 Refill [facility] Endocrinology - [facility] [address] [place] [address] Shanika Aquino NP 62 [facility] [address] [place] [address] Other Social History Tobacco Use [...] Dispensed Refills Start Date End Da te OZEMPIC 1 mg/dose (2 mg/1.5 mL) pen injector INJECT 1MG(1 INJECTIONS) ONCE A WEEK 9 mL 3 03/25/2020 05/06/2020 documented in this encounter Plan of Treatment Upcoming Encounters Date Type Department Care Team (Late st Contact Info) Description 05/17/2024 13:00 EDT Office Visit [facility] Endocrinology - [address] [address] Twyla Mcclellan NP [address] [place] [phone] 08/30/2024 14:00 EST Office Visit [address] [address] Twyla Mcclellan NP [address] [place] [phone] documented as of this encounter Visit Diagnoses Not on filedocumented in this encounter Discontinued Medications Medication Sig Discontinue Reason Start Date End Da te semaglutide 1 mg/dose (2 mg/1.5 mL) pen injector Inject 1 mg into the skin once a week. Pt has discount coupon 12/20/2019 03/25/2020 documented as of this encounter Care Teams Bell Maker Relationship Specialty Start Date End Date Edmar Temple MD [address] [place] [address] [address] [place] [phone] PCP - General 11/21/13 documented as of this encounter
--- OUTSIDE RECORDS SUMMARY | 2024-04-22 04:26 | XMS_ITS | Encounter Summary ---
Author Organization [facility] Address [address] [place] [address] Care Team Providers Care Livestock Slaughterer Name Role Phone Edmar Temple MD Primary Care Provider [phone] Reason for Visit * Reason Comments Other Encounter Details Date Type Department Care Team (Late st Contact Info) Description 11/13/2020 [facility] Endocrinology - [facility] [address] [place] [address] Shanika Aquino NP 62 [facility] [address] [place] [address] Other Social History Tobacco Use [...] TAKE 1 TABLET TWICE A DAY 180 Tab 3 11/13/2020 10/10/2021 documented in this encounter Plan of Treatment Upcoming Encounters Date Type Department Care Team (Late st Contact Info) Description 05/17/2024 13:00 EDT Office Visit [facility] Endocrinology [address] [phone] Twyla Mcclellan NP [address] [place] [phone] 08/30/2024 14:00 EST Office Visit [address] [phone] Twyla Mcclellan NP [address] [place] [phone] documented as of this encounter Visit Diagnoses Not on filedocumented in this encounter Discontinued Medications Medication Sig Discontinue Reason Start Date End Da te metFORMIN (GLUCOPHAGE) 1,000 mg tablet Take 1 Tab by mouth 2 times daily. 08/21/2019 11/13/2020 documented as of this encounter Care Teams Livestock Slaughterer Relationship Specialty Start Date End Date Edmar Temple MD [address] [place] [address] [address] [place] [phone] PCP - General 11/21/13 documented as of this encounter
--- OUTSIDE RECORDS SUMMARY | 2024-04-22 04:26 | XMS_ITS | Encounter Summary ---
Author Organization [facility] Address [address] [place] [address] Care Team Providers Care Manager Of Supply Chain Name Role Phone Edmar Temple MD Primary Care Provider [phone] Reason for Visit * Reason Comments Diabetes Encounter Details Date Type Department Care Team (Latest Contact Info) Description 09/07/2022 15:30 EST Office Visit [facility] Endocrinology - [facility] [address] [place] [address] Twyla Mcclellan NP [address] [facility] [address] [place] [address] Type 2 diabetes mellitus with hyperglycemia, with long-term current use of insulin (HCC-CMS) (Primary Dx); Diabetes mellitus without complication ([facility]); Hypothyroidism; Diabetes mellitus (HCC-CMS) Social History Tobacco Use Types Packs/Day Years [...] Sign Reading Time Taken Comments Blood Pressure 136/60 09/07/2022 1530 EST Pulse 86 09/07/2022 1530 EST Temperature - - Respiratory Rate - - Oxygen Saturation - - Inhaled Oxygen Concentration - - Weight 110.7 kg (244 lb) 09/07/2022 1530 EST Height 172.7 cm (5' 7.99) 09/07/2022 1530 EST Body Mass Index 37.11 09/07/2022 1530 EST documented in this encounter Functional Status [...] Dispensed Refills Start Date End Da te levothyroxine (SYNTHROID) 25 mcg tabletIndications:Hypoth yroidism,Diabetes mellitus ([facility]) Take 1 Tablet by mouth daily. 90 Tablet 3 09/07/2022 semaglutide (OZEMPIC) 1 mg/dose (2 mg/1.5 mL) pen injectorIndications:Type 2 diabetes mellitus with hyperglycemia, with long-term current use of insulin ([facility]) Inject 0.75 mL into the skin once a week. 9 mL 3 09/07/2022 10/06/2022 metFORMIN (GLUCOPHAGE) 1,000 mg tabletIndications:Type 2 diabetes mellitus with hyperglycemia, with long-term current use of insulin ([facility]) Take 1 Tablet by mouth 2 times daily. 180 Tablet 3 09/07/2022 09/02/2023 insulin glargine (LANTUS SOLOSTAR/SEMGLEE) 100 unit/mL (3 mL) injection penIndications:Type 2 diabetes mellitus with hyperglycemia, with long-term current use of insulin ([facility]) Inject 60 Units into the skin at bedtime. Pump back up. Save to file 2 Each 3 09/07/2022 01/21/2023 insulin lispro (HUMALOG U-100 INSULIN) 100 unit/mL vialIndications:Type 2 diabetes mellitus with hyperglycemia, with long-term current use of insulin ([facility]) INJECT 120 UNITS DAILY 120 mL 3 09/07/2022 10/06/2022 documented in this encounter Progress Notes * Cora Genao MA - 09/07/2022 1530 EST Patient provided Dexcom and Omipod to policy writer typist for clinic download Has patient signed download consent? Yes Fingerstick blood sample obtained for POCT Hemoglobin A1C performed for this DOS at the order of Twyla Mcclellan NP/Sallie Ruiz DO * Twyla Mcclellan NP - 09/07/2022 1530 EST [facility] Diabetes Follow-Up Note Kymberly Stewart presents in office today CHIEF COMPLAINT: Chief Complaint Patient presents [...] includes the following prescription(s): acetaminophen, amlodipine, atorvastatin, dexcom g6 sensor, calcium carbonate/vitamin d3, cholecalciferol (vitamin d3), cinnamon bark, citalopram, cyanocobalamin (vitamin b-12), dexcom g6 transmitter, ferrous sulfate, freestyle test, humalog u-100 insulin, insulin glargine, levothyroxine, losartan, metformin, multivitamin, ozempic, vitamin b complex, and vitamin e. Kymberly Stewart reports the following her transmitter a few weeks ago. Her omnipod shows many days with no bolus for corb or correction at all. She was in the habit of bolusing post meal, d/t vomiting but since frenulectomy in 04/2021, she has had no vomiting. She is sleeping better, minimal headaches. She reports that her job is very stressful She has omnipod traditional, we discussed that omnipod 5 is not covered for type 2, she may consider omipod dash but right now has plenty supplies for her traditional so will stick with this for now. Needs to make eye exam Diabetes Pertinent negatives for diabetes include no [...] Types: Cigarettes Quit date: 09/26/2003 Years since quittin.9 ??? Smokeless tobacco: Never Substance Use Topics ??? Alcohol use: Yes Comment: social does not tolerate well since bariatric surgery PHYSICAL EXAMINATION: Vitals: BP 136/60 Pulse 86 Ht 172.7 cm (67.99) Wt (!) 110.7 kg (244 lb) BMI 37.11 kg/m?? BMI: Body mass index is 37.11 kg/m??. Physical Exam Constitutional: Appearance: She is [...] hyperglycemia, with long-term current use of insulin ([facility]) ([facility]) 2. Diabetes mellitus without complication ([facility]) ([facility]) 3. Hypothyroidism 4. Diabetes mellitus ([facility]) PLAN: Medications: A1c 8.2 up from 7.7 She does use her correction regularly sometimes misses her boluses so will work on this Adjust overnight Basal to account for high fastings: 12a 1.5 to 1.65* 8a 2.5to 2.7* 10a 4 9p 2.5 I:Carb 1:10* Continue correction 10 Pt to schedule eye exam Metformin 1000mg twice daily Ozmepic 1mg weekly Recommend aspirin daily. Insulin: Insulin stabilization is required:yes Non-insulin: diet. Recommended: Statin therapy and If intolerant to ACEI, then ARB therapy . Glucose monitoring dexcom. Referred to diabetic education program. no Referred to screen machine operator no. Patient referred to eye managed care director for annual dilated eye exam. Lifestyle modifications: [...] CGM training from a CDE or certified clinical nurse educator Patient has received pump training from a CDE or certified clinical nurse educator and agrees to comply with the [facility] Endocrinology Pump Program Guidelines Patient/caregiver has completed [...] time of the visit. Twyla Mcclellan NP 09/07/2022 15:52 documented in this encounter Miscellaneous Notes * Assessment & Plan Note - Twyla Mcclellan NP - 09/07/2022 1619 EST Associated Problem(s): Hypothyroidism On LT4 25mcg daily managed by PCP, though pt requests Rx documented in this encounter Plan of Treatment Upcoming Encounters Date Type Department Care Team (Late st Contact Info) Description 05/17/2024 13:00 EDT Office Visit [facility] Endocrinology - [address] [phone] Twyla Mcclellan NP [address] [place] [phone] 08/30/2024 14:00 EST Office Visit [facility] Endocrinology - [address] [phone] Twyla Mcclellan NP [address] [facility] [address] [place] [address] documented as of this encounter Procedures Procedure Name Priority Date/Time Associated Diagnosis Comments POCT HEMOGLOBIN A1C, INTERFACED Routine 09/07/2022 15:35 EST Type 2 diabetes mellitus with hyperglycemia, with long-term current use of insulin ([facility]) POCT CSN BARCODE HEMOGLOBIN A1C INT Routine 09/07/2022 15:33 EST Type 2 diabetes mellitus with hyperglycemia, with long-term current use of insulin ([facility]) POCT HEMOGLOBIN A1C, INTERFACED ORDER Routine 09/07/2022 15:33 EST Type 2 diabetes mellitus with hyperglycemia, with long-term current use of insulin ([facility]) documented in this encounter Results * (ABNORMAL) POCT HEMOGLOBIN A1C, INTERFACED (09/07/2022 15:35 EST) Hemoglobin A1c, POC 8.2(H) <5.7 % 09/07/2022 15:43 EST [facility] Blood VENOUS BLOOD / Unknown 09/07/2022 15:35 EST 09/07/2022 15:43 EST Narrative [facility] - 09/07/2022 15:43 EST For Hgb A1c values => 10%, a venous blood measurement in the main laboratory for confirmation is available. Reference Range: <5.7% Normal 5.7-6.4% Prediabetes =>6.5% Diagnostic for diabetes (if confirmed). Test performed at Endocrinology. Twyla Mcclellan NP POINT OF CARE TEST ORDERABLES [facility] [address] [place] [address] * POCT CSN BARCODE HEMOGLOBIN A1C INT (09/07/2022 15:33 EST) Hold Hold 09/07/2022 16:46 EST [facility] Blood VENOUS BLOOD / Unknown 09/07/2022 15:33 EST 09/07/2022 15:33 EST Twyla Mcclellan AIRWAYS CONTROL SPECIALIST LAB INFO SERVICE AN D SUPPORT & PHONE RESULT [facility] [address] [place] [address] documented in this encounter Visit Diagnoses Diagnosis Type 2 diabetes mellitus with hyperglycemia, with long-term current use of insulin ([facility])- Primary Diabetes mellitus without complication ([facility]) Type II or unspecified type diabetes mellitus without mention of complication, not stated as uncontrolled Hypothyroidism Unspecified hypothyroidism Diabetes mellitus ([facility]) Type II or unspecified type diabetes mellitus without mention of complication, not stated as uncontrolled documented in this encounter Discontinued Medications Medication Sig Discontinue Reason Start Date End Da te levothyroxine (SYNTHROID) 25 mcg tabletIndications:Hypothy roidism,Diabetes mellitus ([facility]) Take 1 Tab by mouth daily Reorder 11/07/2014 09/07/2022 insulin glargine (LANTUS SOLOSTAR) 100 unit/mL (3 mL) injection penIndications:Diabetes mellitus without complication ([facility]) Inject 60 Units into the skin at bedtime. Pump back up. Save to file Reorder 05/02/2020 09/07/2022 semaglutide (OZEMPIC) 1 mg/dose (2 mg/1.5 mL) pen injector Inject 0.75 mL into the skin once a week. Reorder 05/28/2021 09/07/2022 metFORMIN (GLUCOPHAGE) 1,000 mg tablet TAKE 1 TABLET TWICE A DAY Reorder 10/10/2021 09/07/2022 HUMALOG U-100 INSULIN 100 unit/mL vialIndications:Type 2 diabetes mellitus with hyperglycemia, with long-term current use of insulin ([facility]) INJECT 80 UNITS DAILY Reorder 06/17/2022 09/07/2022 documented as of this encounter Care Teams Manager Of Supply Chain Relationship Specialty Start Date End Date Edmar Temple MD [facility] [employer] [facility] [address] [place] [address] PCP - General 11/21/13 documented as of this encounter
--- OUTSIDE RECORDS SUMMARY | 2024-04-22 04:26 | XMS_ITS | Encounter Summary ---
Author Organization [facility] Address [address] [place] [address] Care Team Providers Care Machinery Erector Name Role Phone Edmar Temple MD Primary Care Provider [phone] Reason for Visit * Reason Comments Diabetes Encounter Details Date Type Department Care Team (Latest Contact Info) Description 07/12/2019 9:30 EDT Office Visit [facility] Endocrinology - [facility] [address] [place] [address] Shanika Aquino NP [address] [facility] [address] [place] [address] Type 2 diabetes mellitus with hyperglycemia, with long-term current use of insulin ([facility]) (Primary Dx) Social History Tobacco Use Types [...] Sign Reading Time Taken Comments Blood Pressure 136/63 07/12/2019927 EDT Pulse 88 07/12/2019927 EDT Temperature - - Respiratory Rate - - Oxygen Saturation - - Inhaled Oxygen Concentration - - Weight 110.8 kg (244 lb 3.2 oz) 07/12/2019927 EDT Height 170.2 cm (5' 7.01) 07/12/2019927 EDT Body Mass Index 38.24 07/12/2019927 EDT documented in this encounter Functional Status Functional [...] Patient Instructions * Patient Instructions* Shanika Aquino Np - 07/12/2019 9:30 EDT Start shifting insulin from basal to bolus more. Try to bolus at least some pre-meal. No other changes F/U in 4 months Call PCP to see if should get labs pre visit. documented in this encounter Progress Notes * Emma Clements - 07/12/2019929 EDT Fingerstick blood sample obtained for POCT Hemoglobin A1C performed for this DOS at the order of Shanika Aquino NP. Dr. Anne Marie CESAR. * Shanika Aquino Np - 07/12/2019929 EDT Images from the original note were not included. [facility] Diabetes Follow-Up Note CHIEF COMPLAINT: Linda Stewart presents in clinic today with: 1. Type 2 diabetes mellitus with hyperglycemia, with long-term current use of insulin ([facility]) Diabetes PROBLEM: Hypothyroidism, hypertension, sleep apnea, status post gastric bypass, type 2 diabetes controlled on pump therapy, asthma, dyslipidemia. ALLERGIES: She has no known drug allergies. HPI Patient here today for DM2 followup last seen in office on . She is less stressed since brother's cancer is stable, but work still stressful - works from home 1 day a week and travels remainder of week; now tries to not eat in the car. Describes mood as ok and continuing at current dose of citalopram 20mg. Hx of gastric bypass surgery. Episodes of vomiting at dinner much better. Has 2 children, takes walks with them each day - approx 2 miles or 15-20mins daily. Results for LINDA STEWART ( ) as of 07/12/2019 10:07 Ref. Range 02/28/2016 14:57 07/31/2016 10:19 12/18/2016 13:42 06/15/2017 10:46 10/19/2017 10:30 03/02/2018 15:18 01/06/2019 09:27 07/12/2019 09:33 Hemoglobin A1c, POC Latest Ref Range: 5.7 % 7.6 (A) Hemoglobin A1C, POC Interfaced Latest Ref Range: <5.7 % 8.3 (H) 8.7 (H) 7.8 (H) 7.6 (H) 7.3 (H) 8.9 (H) 6.6 (H) Medications: - Humalog pump - metformin 1000mg BID - Victoza 1.8mg in AM Levothyroxine Results for LINDA STEWART ( ) as of 03/02/2018 15:40 Ref. Range 07/31/2016 10:19 12/18/2016 13:42 06/15/2017 10:46 10/19/2017 10:30 03/02/2018 15:18 Hemoglobin A1C, POC Interfaced Latest Ref Range: <5.7 % 8.3 (H) 8.7 (H) 7.8 (H) 7.6 (H) 7.3 (H) She takes Semalgutide 1 mg daily. Metformin 1000 mg twice daily Omnipod Basal rate : Humalog insulin MN 1.0, 8 AM 3.0,10 AM- 21:00 .0, 21:00 1.5. Carb to insulin ratio is 15:1. Sensitivity is 15:1 for BS>100. Active insulin time 3.0 She uses the extended bolus with meals 65% delivered at once and the rest over 2-3 hours. She also uses the temp basal feature with exercise 50% decrease for 1-2 hours or suspends. She uses abouot 76unit/day 855 as basal. DEXCOM Glucose drop late jim to about 3 Am despite dropping her basal and using temp basal of 50-75% . Boluses postprandially and uses extended bolus because of slow absorption s/p bariatric surgery. Glucose climbs a little after lunch and more after dinner. ROS: Symptoms: Denies feeling hypoglycemic (jittery, nervous, anxious, sweating) or hyperglycemic (excessive thirsty or hunger, or frequent urination). Complications: Denies changes in vision, infection, skin problems, changes in hearing Foot care: Performs own foot care. ROS: Denies SOB, CP, dyspnea, current illness/infections. Hypothyroidism: Denies hot cold intolerance constipation diarrhea [...] Last attempt to quit: 09/26/2003 Years since quittin.8 ??? Smokeless tobacco: Never Used Substance Use Topics ??? Alcohol use: Yes Comment: social does not tolerate well since bariatric surgery Labs; see EMR Done at [facility]. 06/29/17 HgA1c was 8.1%, glucose 266, cr 0.61, GFR 107, hemogram in target, urine microalbumin /cr. 11.8. No labs since per [facility]. PHYSICAL EXAMINATION: Vitals: BP 136/63 Pulse 88 Ht 170.2 cm (67.01) Wt (!) 110.8 kg (244 lb 3.2 oz) BMI 38.24 kg/m?? BMI: Body mass index is 38.24 kg/m??. wt IS down 13 pounds. Clinically euthyroid On physical exam well developed morbidly obese woman in no acute distress. Heart and lung sound unremarkable with no carotid bruit. . ASSESSMENT/PLAN: Pt with hx of DM2, HTN, gastric bypass. DM2 managed by insulin pump, metformin 1000mg BID, and Semaglutide. Glucose now in target with wt loss through diet and suspect Semaglutide helping as well. Need to move insulin from basal to bolus and would help to tale at least some pre meal. She is a stress eater and decreased situational stress. No undue burden of lows . Pt very motivated to make changes and continue current exercise regime. Clinically euthyroid on levothyroxine 25 mcg daily last TSH normal No recent lipid panel found . She takes Lipitor Management deferred to PCP who she sees 07/31. Blood pressure , in target today on Losartan And a calcium channel manuelito. Was on an Ismael previously stopped because of a cough.- No proteinuria Hypothyroidism - on Levothyroxin 25 mcg - clinically euthyroid. No recent TSH. But last was unremarkable Referred to diabetic education program. No Referred to ict account manager met with RD, briefly to discuss continuous glucose sensor therapy Patient referred to eye director of medicare for annual dilated eye exam. Up to date Lifestyle modifications: recommend losing weight Patient does demonstrate knowledge of diabetes and expectations. Patient does understand medication regimen. Barriers to adherence: Financial and Emotional. PLAN: Start shifting insulin from basal to bolus more. Try to bolus at least some pre-meal. No other changes F/U in 4 months Call PCP to see if should get labs pre visit. Have ordered a vitamin D as well. Shanika Aquino NP 07/12/2019 9:59 I spent a total of 25 minutes in face to face time with this patient, and 15 minutes of that time was spent in counseling and coordination of care as described in This progress note documented in this encounter Plan of Treatment Upcoming Encounters Date Type Department Care Team (Late st Contact Info) Description 05/17/2024 13:00 EDT Office Visit [facility] Endocrinology - [address] [address] Twyla Mcclellan NP [address] [place] [phone] 08/30/2024 14:00 EST Office Visit [facility] - [address] [phone] Twyla Mcclellan NP [address] [place] [phone] documented as of this encounter Procedures Procedure Name Priority Date/Time Associated Diagnosis Comments POCT HEMOGLOBIN A1C, INTERFACED Routine 07/12/2019 9:33 EDT Type 2 diabetes mellitus with hyperglycemia, with long-term current use of insulin ([facility]) documented in this encounter Results * (ABNORMAL) POCT HEMOGLOBIN A1C, INTERFACED (07/12/2019 9:33 EDT) Hemoglobin A1C, POC Interfaced 6.6(H) <5.7 % 07/12/2019 9:45 EDT [facility] electronic equipment trades worker ID [id number] 07/12/2019 9:45 EDT [facility] Comment: For Hgb A1c values =>10%, a venous blood measurement in the main laboratory for confirmation is available. Reference Range: <5.7% Normal 5.7-6.4% Prediabetes =>6.5% Diagnostic for diabetes (if confirmed) Goals for glycemic control in diabetes ADA 2017 For non adults with diabetes: ?? Target <7.0% For children and adolescents with type 1 diabetes: ?? Target <7.5% More or less stringent targets may be appropriate for individual patients. Test performed at Endocrinology Blood specimen (specimen) BLOOD SPECIMEN / Unknown 07/12/2019 9:33 EDT 07/12/2019 9:45 EDT Shanika Aquino NP POINT OF CARE TEST ORDERABLES [facility] [address] [place] [address] documented in this encounter Visit Diagnoses Diagnosis Type 2 diabetes mellitus with hyperglycemia, with long-term current use of insulin ([facility])- Primary documented in this encounter Discontinued Medications Medication Sig Discontinue Reason Start Date End Da te semaglutide 0.25 mg or 0.5 mg(2 mg/1.5 mL) pen injector Inject 0.25-0.5 mg into the skin once a week. 0.25 mg weekly for 2 weeks and if tolerated increase to 0.5 mg Dose adjustment 01/25/2019 07/12/2019 documented as of this encounter Care Teams Machinery Erector Relationship Specialty Start Date End Date Edmar Temple MD [facility] [employer] [address] [place] [phone] PCP - General 11/21/13 documented as of this encounter
--- OUTSIDE RECORDS SUMMARY | 2024-04-22 04:26 | XMS_ITS | Encounter Summary ---
Author Organization [facility] Address [address] [place] [address] Care Team Providers Care Hydration Plant Operator Name Role Phone Edmar Temple MD Primary Care Provider [phone] Reason for Visit * Reason Onset Date Comments Medications Refill 10/10/2022 Encounter Details Date Type Department Care Team (Late st Contact Info) Description 10/10/2022 Refill [facility] Endocrinology - [facility] [address] [place] [address] Twyla Mcclellan NP [address] [facility] [address] [place] [address] Medications Refill Social History Tobacco [...] directed continuous. 1 Each 3 10/12/2022 10/05/2023 documented in this encounter Miscellaneous Notes * Telephone Encounter - Minerva Wallis NP - 10/12/2022 0738 EST Pt last seen 09/07/2022. * Telephone Encounter - Minerva Wallis NP - 10/12/2022 7926 ESTFrom: Kymberly Stewart To: Office of Twyla Mcclellan NP Sent: 10/10/2022 22:06 EST Subject: Medication Renewal Request Refills have been requested for the following medications: DEXCOM G6 TRANSMITTER device [Twyla Mcclellan] Preferred pharmacy: [facility] [place], [place] - [address] documented in this encounter Plan of Treatment Upcoming Encounters Date Type Department Care Team (Late st Contact Info) Description 05/17/2024 13:00 EDT Office Visit [facility] Endocrinology [address] [phone] Twyla Mcclellan NP [address] [place] [phone] 08/30/2024 14:00 EST Office Visit [facility] Endocrinology [address] [address] Twyla Mcclellan NP [address] [place] [phone] documented as of this encounter Visit Diagnoses Not on filedocumented in this encounter Discontinued Medications Medication Sig Discontinue Reason Start Date End Da te DEXCOM G6 TRANSMITTER device USE DIRECTED EVERY 90 DAYS Reorder 06/17/2022 10/10/2022 documented as of this encounter Care Teams Hydration Plant Operator Relationship Specialty Start Date End Date Edmar Temple MD [address] [place] [address] [address] [place] [phone] PCP - General 11/21/13 documented as of this encounter
--- OUTSIDE RECORDS SUMMARY | 2024-04-22 04:26 | XMS_ITS | Encounter Summary ---
Author Organization [facility] Address [address] [place] [address] Care Team Providers Care Spear Fisher Name Role Phone Edmar Temple MD Primary Care Provider [phone] Reason for Visit * Reason Comments Diabetes Encounter Details Date Type Department Care Team (Latest Contact Info) Description 01/02/2021 14:00 EDT Telemedicine [facility] Endocrinology - [facility] [address] [place] [address] Shanika Aquino NP [address] [facility] [address] [place] [address] Type 2 diabetes mellitus with hyperglycemia, with long-term current use of insulin ([facility]) (Primary Dx); Status post gastric bypass for obesity; Essential hypertension; Dyslipidemia; Hypothyroidism due to Rj's thyroiditis; PCOS (polycystic ovarian syndrome) Social History Tobacco Use Types Packs/Day Years [...] Concentration - - Weight - - Height 172.7 cm (5' 8) 01/02/2021 1414 EDT Body Mass Index - - documented [...] as of this encounter Progress Notes * Shanika Aquino APRN - 01/02/2021 1400 EDT Images from the original note were not included. [facility] Diabetes Follow-Up Note ELEMEDICINE VIDEO VISIT Today's visit was provided through telemedicine video conferencing: The location of the patient : Home The location of the provider: Office The following staff and their role did participate in today's encounter visit: Shanika Aquino APRN CHIEF COMPLAINT: Kymberly Stewart presents in clinic today with: 1. Type 2 diabetes mellitus with hyperglycemia, with long-term current use of insulin ([facility]) 2. Status post gastric bypass for obesity 3. Essential hypertension 4. Dyslipidemia 5. Hypothyroidism due to Rj's thyroiditis 6. PCOS (polycystic ovarian syndrome) Patient is a 45 y.o. female presenting with diabetes problem. Diabetes PROBLEM: Hypothyroidism, hypertension, sleep apnea, status post gastric bypass, type 2 diabetes controlled on pump therapy, asthma, dyslipidemia. ALLERGIES: She has no known drug allergies. The concept of ???Telemedicine?? has been described [...] in patient???s medical or mental health care. HPI: Kymberly has a video appt today here due to COVID 19 for DM2 Managed by pump and CGM. Visit deuce followup- last seen on 04/23/2020. She is working from home but job may end in March or the following year. She works for the [employer], I believe in [employer] going out to agencies. . She had her annual physical this AM and HgA1C 7.1%. PMH: Her first delivered 03/2005 by an emergency at 38 weeks gestational age. Hewas 8 pounds 2 ounces. She had some hypertension and bleeding during her . Her daughter was born 2010, FT planned C- section Wt. 9 lb 8 oz. Medications: - Humalog pump - metformin 1000mg BID - Semaglutide 1 mg weekly Levothyroxine Omnipod Pump: Basal rate : Humalog insulin MN 1.5, 6 AM 2.5, 10 AM 4.0 10 PM 2.4. Carb to insulin ratio is 12:1. Sensitivity is 10:1 for BS>100. Active insulin time 3.0 She usually boluses post meal since forgets or gets a call. In past has used the extended bolus with meals 65% delivered at once and the rest over 2-3 hours. She also uses the temp basal feature withexercise 50% decrease for 1-2 hours or suspends. No afternoon snack but has coffee. Has a late dinner She feels her correction bolus is accurate. Foot care: Performs own foot care. Hypothyroidism: Denies hot cold intolerance constipation diarrhea hair skin changes tremors palpitations hoarseness trouble swallowing She had gastric bypass surgery in July of 2009. Her highest weight was 320 and and lost 61 pounds, - her weight is stable stable 234-238. ROS: No chest pain, .. She has a rt bundle branch block and has an US is scheduled Denies shortnessof breath. infections, skin problems, changes in hearing Hx of gastric bypass surgery. Still has some vomiting at dinner if food too dry. Tries not to drink anything at meals, since Gastric bypass. Eye exam in September showed a small new bleed in left eye beng monitored for now. F/U Showed had stabilized. Has a annual scheduled in May. The other bleed in that eye has stabilized. Denies numbness, tingling, calf pain, no polyuria, polydipsia, polyphagia. She detects her hypoglycemia appropriately around in 70's, but that has not been a major problem. About 1/month at PM. Kymberly Stewart recently has a history of being in poor glycemic control. Patient's home regimen consists of has a current medication list which includes the following prescription(s): acetaminophen, amlodipine, atorvastatin, calcium carbonate/vitamin d3, cholecalciferol (vitamin d3), cinnamon bark, citalopram, cyanocobalamin (vitamin b-12), ferrous sulfate, freestyle test, insulin glargine, insulin lispro, levothyroxine, losartan, metformin, multivitamin, ozempic, vitamin b complex, and vitamin e. The patient has experienced the following acute complications: hypoglycemia - mild-moderate and hyperglycemia - mild-moderate. Social History Tobacco Use ??? Smoking status: Former Smoker Quit date: 09/26/2003 Years since quittin.2 ??? Smokeless tobacco: Never Used Substance Use Topics ??? Alcohol use: Yes Comment: social does not tolerate well since bariatric surgery Labs; see EMR Done at [facility]. Had labs done at PCP's office today. PHYSICAL EXAMINATION: Well developed woman in no acute distress Deferred - video visit There were no vitals taken for this visit. BMI: There is no height or weight on file to calculateBMI. wt IS down 13 pounds. Clinically euthyroid ASSESSMENT/PLAN: Pt with hx of DM2, HTN, gastric bypass. No recent HgA1C. DM2 managed by insulin pump, metformin 1000mg BID, and Semaglutide. HgA1C today close to target. Her total daily onsulin uses varies considerably. Her overnight glucose is steady after 2 AM, but climbs durring day which may be a combination of stress, coffee and food. Suspect afternoon coffee making glucose spike then. Needs to work on boluiong pre-meal. No undue burden of lows. She is very motivated to make changes and continue current exercise regime. Clinically euthyroid on levothyroxine 25 mcg daily last TSH normal She had labs this AM She takes Lipitor Management deferred to PCP. Blood pressure ,Usually in target today on Losartan & a calcium channel manuelito. Was on an Ismael previously stopped because of a cough.- No proteinuria Hypothyroidism - on Levothyroxin 25 mcg - clinically euthyroid. No recent TSH. But last was unremarkable Referred to diabetic education program. No Referred to film process operator met with RD, briefly to discuss continuous glucose sensor therapy Patient referred to eye care manager cna for annual dilated eye exam. Up to date Lifestyle modifications: recommend losing weight Patient does demonstrate knowledge of diabetes and expectations. Patient does understand medication regimen. Barriers to adherence: Financial and Emotional. PLAN: - Work on bolusng pre-meal - Bolus a small amt for afternoon coffee Try extended bolus of 1 hour . - Increase CHO ratio for dinner to 10:1 or 8:1. - Caution taking correction boluses in jim. - I am retiring in January which we discussed Will follow up with Twyla Mcclellan the TESTER [employer]OUND replacing me in 6 months and as needed. - I will request recent labs from Abigail Aquino APRN 01/01/2021 21:12 I spent a total of 30 minutes on the date of this encounter meeting with the patient and reviewing documentation/coordinating care as described in the above note. No procedures were performed at the time of the visit. Kymberly Stewart is diagnosed with E11.9 Type 2 diabetes mellitus without complications and is using a: Pump and CGM For CGM: Patient has been testing their [...] sugar monitoring, medications, diet and provider treatment. Patient is using higher or lower premeal insulin depending on carb counting and correction factor or high or low premeal readings. This is done by adjusting the premeal insulin or pump meal bolus. Education: Patient has received pump training from a CDE or certified parent trainer and agrees to comply with the [facility] Endocrinology Pump Program Guidelines Patient/caregiver has completed diabetes education including carbohydrate counting and is motivatedto maintain optimal glucose control Lab Results Component Value Date HGBA1C 6.6 (H) 07/12/2019 I certify that I am the clinician managing this patient's diabetes. documented in this encounter Plan of Treatment Upcoming Encounters Date Type Department Care Team (Late st Contact Info) Description 05/17/2024 13:00 EDT Office Visit [facility] Endocrinology - [address] [id number] Twyla Mcclellan NP [address] [place] [phone] 08/30/2024 14:00 EST Office Visit [facility] Endocrinology - [address] [address] Twyla Mcclellan NP [address] [place] [phone] documented as of this encounter Visit Diagnoses Diagnosis Type 2 diabetes mellitus with hyperglycemia, with long-term current use of insulin ([facility])- Primary Status post gastric bypass for obesity Bariatric surgery status Essential hypertension Unspecified essential hypertension Dyslipidemia Other and unspecified hyperlipidemia Hypothyroidism due to Rj's thyroiditis PCOS (polycystic ovarian syndrome) Polycystic ovaries documented in this encounter Care Teams Spear Fisher Relationship Specialty Start Date End Date Edmar Temple MD [address] [place] [address] [place] [phone] PCP - General 11/21/13 documented as of this encounter
--- OUTSIDE RECORDS SUMMARY | 2024-04-22 04:26 | XMS_ITS | Encounter Summary ---
Author Organization [facility] Address [address] [place] [address] Care Team Providers Care Emts Name Role Phone Edmar Temple MD Primary Care Provider [phone] Reason for Visit * Reason Comments Diabetes Encounter Details Date Type Department Care Team (Latest Contact Info) Description 04/24/2020 9:30 EDT Telemedicine [facility] Endocrinology - [facility] [address] [place] [address] Shanika Aquino NP [address] [facility] [address] [place] [address] Type 2 diabetes mellitus without complication, without long-term current use of insulin ([facility]) (Primary Dx); Status post gastric bypass for obesity; Essential hypertension; Dyslipidemia; Type 2 diabetes mellitus with hyperglycemia (HCC-CMS); Diabetes mellitus without complication (HCC-CMS) Social History Tobacco Use Types Packs/Day [...] * Patient Instructions* Shanika Aquino APRN - 04/24/2020 9:30 EDT Meds renewed HgA1C at physical with PCP. Please call with results and ask labs report to be faxed to Please send pump total olivas insulin and breakdown today via portal. Change CHO:insulin ratio to 10:1 or 8:1 if needed. Continue with extended bolus. And temp basal. F/U in 4 months Please let me know if able to transmit CGM data. documented in this encounter Ordered Prescriptions Prescription Sig Dispensed Refills Start Date End Da te insulin lispro (HUMALOG U-100 INSULIN) 100 unit/mL vial Inject 8,000 Units into the skin continuous. On insulin pump 70 mL 3 04/24/2020 05/02/2020 insulin glargine (LANTUS SOLOSTAR) 100 unit/mL (3 mL) injection penIndications:Diabetes mellitus without complication (HCC-CMS) Inject 60 Units into the skin at bedtime. Pump back up. Save to file 2 Each 3 04/24/2020 05/02/2020 FREESTYLE TEST test stripsIndications:Type 2 diabetes mellitus with hyperglycemia (HCC-CMS) 1 Strip as needed (backup CGM). Freestyle test strips ,Use 4-5 times daily , E11.9, insulin dependent 50 Each 5 04/24/2020 08/03/2022 documented in this encounter Progress Notes * Shanika Aquino APRN - 04/24/2020 0930 EDT Images from the original note were not included. [facility] Diabetes Follow-Up Note ELEMEDICINE VIDEO VISIT Today's visit was provided through telemedicine video conferencing: The location of the patient : Home The location of the provider: Office The following staff and their role did participate in today's encounter visit: Shanika Aquino APRN CHIEF COMPLAINT: Kymberly Stewart presents in clinic today with: 1. Type 2 diabetes mellitus without complication, without long-term current use of insulin ([facility]) 2. Status post gastric bypass for obesity 3. Essential hypertension 4. Dyslipidemia Patient is a 45 y.o. female presenting [...] COVID 19 for DM2 followup last seen on 12/26/2019. . She quit her job and is less stressed, since last visit when working from home and children home and no time to address her own health. She has been doing a lot of hiking /kayaking and swims daily. She is concerned about how to staay active this winter. She is having trouble with her CGM plug in and charge and cannot get thru to the company. PMH: Her first delivered 03/2005 by an emergency at 38 weeks gestational age. Hewas 8 pounds 2 ounces. She had some hypertension and bleeding during her . Her daughter was born 2010, FT planned C- section Wt. 9 lb 8 oz. HgA1C mid March 6.9% Ref. Range 02/28/2016 14:57 07/31/2016 10:19 12/18/2016 [...] AM 2.5, 10 AM 4.0 10 PM 2.3. Carb to insulin ratio is 12:1. Sensitivity is 10:1 for BS>100. Active insulin time 3.0 She tries to use the extended bolus with meals 65% delivered at once and the rest over 2-3 hours. She also uses the temp basal feature with exercise 50% decrease for 1-2 hours or suspends. Unable to transmit pump/CGM data today. Reports 100's to 200's but spikes after lunch Post prandialbreakfast better . No major lows. Foot care: Performs own foot care. Hypothyroidism: [...] Former Smoker Quit date: 09/26/2003 Years since quittin.5 ??? Smokeless tobacco: Never Used Substance Use Topics ??? Alcohol use: Yes Comment: social does not tolerate well since bariatric surgery Labs; see EMR Done at [facility]. 06/29/17 HgA1c was 8.1%, glucose 266, cr 0.61, GFR 107, hemogram in target, urine microalbumin /cr. 11.8. No labs since per [facility]. PHYSICAL EXAMINATION Deferred - video visit There were no vitals taken for this visit. BMI: There is no height or weight on file to calculateBMI. wt IS down 13 pounds. Clinically euthyroid ASSESSMENT/PLAN: Pt with hx of DM2, HTN, gastric bypass. No recent HgA1C. DM2 managed by insulin pump, metformin 1000mg BID, and Semaglutide. Hard to evaluated without CGM. Wt stable getting lots of exercise. Has much stress at home with 2 children and work. Stronger breakfast bolus helping , but still needs to increase jon for lunch. No undue burden of lows . Pt very motivated to make changes and continue current exercise regime. Clinically euthyroid on levothyroxine 25 mcg daily last TSH normal No recent lipid panel found . She takes Lipitor Management deferred to PCP who she sees in May. Blood pressure ,Usually in target today on Losartan & a calcium channel manuelito. Was on an Ismael previously stopped because of a cough.- No proteinuria Hypothyroidism - on Levothyroxin 25 mcg - clinically euthyroid. No recent TSH. But last was unremarkable Referred to diabetic education program. No Referred to j2ee software engineer met with RD, briefly to discuss continuous glucose sensor therapy Patient referred to eye director of healthcare systems for annual dilated eye exam. Up to date Lifestyle modifications: recommend losing weight Patient does demonstrate knowledge of diabetes and expectations. Patient does understand medication regimen. Barriers to adherence: Financial and Emotional. PLAN: Please send pump total olivas insulin and breakdown today via portal. Change CHO:insulin ratio to 10:1 or 8:1 if needed. Try to blus at least some if not all pre meal. Continue with extended bolus. And temp basal. F/U in 4 months Please have PCP send most recent labs Ideally in last 9 months BMP, lipid panel , tsh and urine miroalbumin cr ratio. fax to clinic - [phone] Shanika Aquino APRN 04/24/2020 9:38 This visit was conducted by video I spent a total of 30 minutes in discussion with the patient as described in the progress note. documented in this encounter Plan of Treatment Upcoming Encounters Date Type Department Care Team (Late st Contact Info) Description 05/17/2024 13:00 EDT Office Visit [facility] Endocrinology - [address] [address] Twyla Mcclellan NP [address] [place] [phone] 08/30/2024 14:00 EST Office Visit [facility] Endocrinology - [address] [address] Twyla Mcclellan NP [address] [place] [phone] documented as of this encounter Visit Diagnoses Diagnosis Type 2 diabetes mellitus without complication, without long-term current use of insulin ([facility] Primary Status post gastric bypass for obesity Bariatric surgery status Essential hypertension Unspecified essential hypertension Dyslipidemia Other and unspecified hyperlipidemia Type 2 diabetes mellitus with hyperglycemia ([facility]) Type II or unspecified type diabetes mellitus without mention of complication, not stated as uncontrolled Diabetes mellitus without complication ([facility]) Type II or unspecified type diabetes mellitus without mention of complication, not stated as uncontrolled documented in this encounter Discontinued Medications Medication Sig Discontinue Reason Start Date End Da te insulin glargine (LANTUS SOLOSTAR) 100 unit/mL (3 mL) injection penIndications:Diabetes mellitus without complication ([facility]) Inject 60 Units into the skin at bedtime. Pump back up hold to file Reorder 12/18/2016 04/24/2020 insulin lispro (HUMALOG) 100 unit/mL vial Inject 70 Units into the skin continuous. Reorder 10/19/2017 04/24/2020 FREESTYLE TEST test stripsIndications:Type 2 diabetes mellitus with hyperglycemia ([facility]) Freestyle test strips ,Use 4-5 times daily , E11.9, insulin dependent Reorder 01/31/2019 04/24/2020 documented as of this encounter Care Teams Emts Relationship Specialty Start Date End Date Edmar Temple MD [facility] [employer] [address] [place] [address] PCP - General 11/21/13 documented as of this encounter
--- OUTSIDE RECORDS SUMMARY | 2024-04-22 04:26 | XMS_ITS | Encounter Summary ---
Author Organization [facility] Address [address] [place] [address] Care Team Providers Care Rides Supervisor Name Role Phone Edmar Temple MD Primary Care Provider [phone] Reason for Visit * Reason Onset Date Comments Appointment Related 12/01/2021 Encounter Details Date Type Department Care Team (Late st Contact Info) Description 12/01/2021 Telephone [facility] Endocrinology - [facility] [address] [place] [address] Twyla Mcclellan NP [address] [facility] [address] [place] [phone] Appointment Related Social History Tobacco [...] encounter Miscellaneous Notes * Telephone Encounter - Radha Smith - 12/01/2021 1036 EDT Learning And Development Administrator trying to schedule fill 2 in-office appointments on 12/02/21 @ 9 and 10 AM. I LMOM offering these appointments as the patient is on the Wait List. I explained these opening are filled on a first come first serve basis and the patient would need to call us back amari if interested. documented in this encounter Plan of Treatment Upcoming Encounters Date Type Department Care Team (Late st Contact Info) Description 05/17/2024 13:00 EDT Office Visit [facility] Endocrinology - [address] [address] Twyla Mcclellan NP [address] [place] [phone] 08/30/2024 14:00 EST Office Visit [facility] - [address] [address] Twyla Mcclellan NP [address] [place] [phone] documented as of this encounter Visit Diagnoses Not on filedocumented in this encounter Care Teams Rides Supervisor Relationship Specialty Start Date End Date Edmar Temple MD [address] [place] [address] [address] [place] [address] PCP - General 11/21/13 documented as of this encounter
--- OUTSIDE RECORDS SUMMARY | 2024-04-22 04:26 | XMS_ITS | Encounter Summary ---
Author Organization [facility] Address [address] [place] [address] Care Team Providers Care Information Security Officer Name Role Phone Edmar Temple MD Primary Care Provider [phone] Reason for Visit * Reason Onset Date Comments DME 08/25/2022 Follow-up 08/27/2022 Encounter Details Date Type Department Care Team (Late st Contact Info) Description 08/25/2022 Telephone [facility] Endocrinology - [facility] [address] [place] [address] Twyla Mcclellan NP [address] [facility] [address] [place] [address] DME; Follow-up Social History Tobacco Use Types Packs/Day [...] Telephone Encounter - Ania Sotelo MA - 08/28/2022 1148 EST Spoke to [place] patient hasn't been seen in over 1 year and has an upcoming appointment on 09/07/22 and I will send over for Rx after visit. * Telephone Encounter - Kelsi Durand - 08/27/2022 1540 EST Charles called to follow up on this request. Please call back to discuss. * Telephone Encounter - Chriss Lemus - 08/25/2022 1653 EST Charles with [facility] called to check the status of the Dexcom G6 Sensors. States that he has faxed a form to be filled out by the physician. Please advise. documented in this encounter Plan of Treatment Upcoming Encounters Date Type Department Care Team (Late st Contact Info) Description 05/17/2024 13:00 EDT Office Visit [facility] Endocrinology - [address] [address] Twyla Mcclellan NP [address] [place] [phone] 08/30/2024 14:00 EST Office Visit [facility] Endocrinology [address] [address] Twyla Mcclellan NP [address] [place] [phone] documented as of this encounter Visit Diagnoses Not on filedocumented in this encounter Care Teams Information Security Officer Relationship Specialty Start Date End Date Edmar Temple MD [facility] [employer] [facility] [address] [place] [address] PCP - General 11/21/13 documented as of this encounter
--- OUTSIDE RECORDS SUMMARY | 2024-04-22 04:26 | XMS_ITS | Encounter Summary ---
Author Organization [facility] Address [address] [place] [address] Care Team Providers Care Sheet Metal Welder Name Role Phone Edmar Temple MD Primary Care Provider [phone] Reason for Visit * Reason Onset Date Comments Medications Refill 05/02/2020 Encounter Details Date Type Department Care Team (Late st Contact Info) Description 05/02/2020 Refill [facility] Endocrinology - [facility] [address] [place] [address] Shanika Aquino NP 62 [facility] [address] [place] [address] Medications Refill Social History Tobacco [...] pump route daily. 80 mL 3 05/02/2020 05/02/2020 documented in this encounter Plan of Treatment Upcoming Encounters Date Type Department Care Team (Late st Contact Info) Description 05/17/2024 13:00 EDT Office Visit [facility] Endocrinology [address] [phone] Twyla Mcclellan NP [address] [place] [phone] 08/30/2024 14:00 EST Office Visit [address] [phone] Twyla Mcclellan NP [address] [place] [phone] documented as of this encounter Visit Diagnoses Not on filedocumented in this encounter Discontinued Medications Medication Sig Discontinue Reason Start Date End Da te insulin lispro (HUMALOG U-100 INSULIN) 100 unit/mL vial Inject 8,000 Units into the skin continuous. On insulin pump Reorder 04/24/2020 05/02/2020 documented as of this encounter Care Teams Sheet Metal Welder Relationship Specialty Start Date End Date Edmar Temple MD [address] [place] [address] [address] [address] [place] [address] PCP - General 11/21/13 documented as of this encounter
--- OUTSIDE RECORDS SUMMARY | 2024-04-22 04:26 | XMS_ITS | Encounter Summary ---
Author Organization [facility] Address [address] [place] [address] Care Team Providers Care Ice Rink Attendant Name Role Phone Edmar Temple MD Primary Care Provider [phone] Reason for Visit * Reason Onset Date Comments Medications Refill 09/15/2021 Encounter Details Date Type Department Care Team (Late st Contact Info) Description 09/15/2021 Refill [facility] Endocrinology - [facility] [address] [place] [address] Twyla Mcclellan NP 62 [facility] [address] [place] [address] Medications Refill Social History Tobacco [...] route every 10 days. E11.65 insulin dependent 9 Each 3 09/17/2021 09/10/2022 documented in this encounter Miscellaneous Notes * Telephone Encounter - Cora Genao MA - 09/15/2021 1207 EST Images from the original note were not included. We received a fax from [employer] requesting a refill for DEXCOM G6 SENSOR. Please review appropriately. documented in this encounter Plan of Treatment Upcoming Encounters Date Type Department Care Team (Late st Contact Info) Description 05/17/2024 13:00 EDT Office Visit [facility] Endocrinology - [address] [phone] Twyla Mcclellan NP [address] [place] [phone] 08/30/2024 14:00 EST Office Visit [address] [phone] Twyla Mcclellan NP [address] [place] [phone] documented as of this encounter Visit Diagnoses Not on filedocumented in this encounter Discontinued Medications Medication Sig Discontinue Reason Start Date End Da te Blood-Glucose Sensor (DEXCOM G6 SENSOR) device 1 Device by misc (non-drug; combo route) route every 10 days. E11.65 insulin dependent Reorder 01/31/2021 09/15/2021 documented as of this encounter Care Teams Ice Rink Attendant Relationship Specialty Start Date End Date Edmar Temple MD [address] [place] [phone] PCP - General 11/21/13 documented as of this encounter
--- OUTSIDE RECORDS SUMMARY | 2024-04-22 04:26 | XMS_ITS | Encounter Summary ---
Author Organization [facility] Address [address] [place] [address] Care Team Providers Care Diagnostic Technologist Name Role Phone Edmar Temple MD Primary Care Provider [phone] Reason for Visit * Reason Onset Date Comments Appointment Related 12/10/2021 Encounter Details Date Type Department Care Team (Late st Contact Info) Description 12/10/2021 Telephone [facility] Endocrinology - [facility] [address] [place] [address] Twyla Mcclellan NP 62 [facility] [address] [place] [address] Appointment Related Social History Tobacco [...] * Telephone Encounter - Radha Smith - 12/10/2021 1129 EDT Humidifier Operator trying to schedule fill an in-office opening on 12/11/21 @ 1 pm. I LMOM offering the patient this sooner appointment as she is on the wait list. I explained that I cannot hold this opening and it will be filled first come first serve and patient would need to call back amari if interested. documented in this encounter Plan of Treatment Upcoming Encounters Date Type Department Care Team (Late st Contact Info) Description 05/17/2024 13:00 EDT Office Visit [facility] Endocrinology [address] [phone] Twyla Mcclellan NP [address] [place] [phone] 08/30/2024 14:00 EST Office Visit [address] [phone] Twyla Mcclellan NP [address] [place] [phone] documented as of this encounter Visit Diagnoses Not on filedocumented in this encounter Care Teams Diagnostic Technologist Relationship Specialty Start Date End Date Edmar Temple MD [address] [place] [address] [place] [phone] PCP - General 11/21/13 documented as of this encounter
--- OUTSIDE RECORDS SUMMARY | 2024-04-22 04:26 | XMS_ITS | Encounter Summary ---
Author Organization [facility] Address [address] [place] [address] Care Team Providers Care Management Services Technician Name Role Phone Edmar Temple MD Primary Care Provider [phone] Reason for Visit * Reason Onset Date Comments Medications Refill 05/28/2021 Encounter Details Date Type Department Care Team (Late st Contact Info) Description 05/28/2021 Refill [facility] Endocrinology - [facility] [address] [place] [address] Twyla Mcclellan NP 62 [facility] [address] [place] [address] Medications Refill Social History Tobacco [...] skin once a week. 9 mL 3 05/28/2021 09/07/2022 documented in this encounter Miscellaneous Notes * Telephone Encounter - Cora Gneao MA - 05/28/2021 0856 EDT Images from the original note were not included. We received a fax from [employer] requesting a refill for OZEMPIC 1MG/DOSE SOLN PEN-INJ. Pleasereview appropriately. documented in this encounter Plan of Treatment Upcoming Encounters Date Type Department Care Team (Late st Contact Info) Description 05/17/2024 13:00 EDT Office Visit [facility] Endocrinology [address] [phone] Twyla Mcclellan NP [address] [place] [phone] 08/30/2024 14:00 EST Office Visit [address] [address] Twyla Mcclellan NP [address] [place] [phone] documented as of this encounter Visit Diagnoses Not on filedocumented in this encounter Discontinued Medications Medication Sig Discontinue Reason Start Date End Da te semaglutide (OZEMPIC) 1 mg/dose (2 mg/1.5 mL) pen injector Inject 1 mg into the skin once a week. Reorder 05/06/2020 05/28/2021 documented as of this encounter Care Teams Management Services Technician Relationship Specialty Start Date End Date Edmar Temple MD [address] [place] [phone] PCP - General 11/21/13 documented as of this encounter
--- OUTSIDE RECORDS SUMMARY | 2024-04-22 04:26 | XMS_ITS | Encounter Summary ---
Author Organization [facility] Address [address] [place] [address] Care Team Providers Care Corporate Travel Coordinator Name Role Phone Edmar Temple MD Primary Care Provider Reason for Visit * Reason Onset Date Comments Medications Refill 06/24/2021 Encounter Details Date Type Department Care Team (Late st Contact Info) Description 06/24/2021 Refill [facility] Endocrinology - [facility] [address] [place] [address] Twyla Mcclellan NP 62 [facility] [address] [place] [address] Medications Refill Social History Tobacco [...] every 90 days. E11.65 insulin dependent 1 Each 3 06/25/2021 06/17/2022 documented in this encounter Miscellaneous Notes * Telephone Encounter - Radha Christianson MA - 06/24/2021 1057 EDT Former Aquino, patient last seen 01/08/21 Has an upcoming appt with Twyla Mcclellan on 07/04/21 documented in this encounter Plan of Treatment Upcoming Encounters Date Type Department Care Team (Late st Contact Info) Description 05/17/2024 13:00 EDT Office Visit [facility] Endocrinology - [address] [phone] Twyla Mcclellan NP [address] [place] [phone] 08/30/2024 14:00 EST Office Visit [address] [phone] Twyla Mcclellan NP [address] [place] [phone] documented as of this encounter Visit Diagnoses Not on filedocumented in this encounter Discontinued Medications Medication Sig Discontinue Reason Start Date End Da te Blood-Glucose Transmitter (DEXCOM G6 TRANSMITTER) device 1 Device by misc (non-drug; combo route) route every 90 days. E11.65 insulin dependent Reorder 01/31/2021 06/24/2021 documented as of this encounter Care Teams Corporate Travel Coordinator Relationship Specialty Start Date End Date Edmar Temple MD [address] [place] [phone] PCP - General 11/21/13 documented as of this encounter
--- OUTSIDE RECORDS SUMMARY | 2024-04-22 04:26 | XMS_ITS | Encounter Summary ---
Author Organization [facility] Address [address] [place] [address] Care Team Providers Care Director Of Optimization Name Role Phone Edmar Temple MD Primary Care Provider [phone] Reason for Visit * Reason Comments Other Encounter Details Date Type Department Care Team (Late st Contact Info) Description 08/19/2019 Refill [facility] Endocrinology - [facility] [address] [place] [address] Shanika Aquino NP 62 [facility] [address] [place] [address] Other Social History Tobacco Use [...] Start Date End Da te metFORMIN (GLUCOPHAGE) 000 mg tablet Take 1 Tab by mouth 2 times daily. 180 Tab 4 08/21/2019 11/13/2020 documented in this encounter Plan of Treatment Upcoming Encounters Date Type Department Care Team (Late st Contact Info) Description 05/17/2024 13:00 EDT Office Visit [facility] Endocrinology [address] [address] Twyla Mcclellan NP [address] [place] [phone] 08/30/2024 14:00 EST Office Visit [address] [address] Twyla Mcclellan NP [address] [place] [phone] documented as of this encounter Visit Diagnoses Not on filedocumented in this encounter Discontinued Medications Medication Sig Discontinue Reason Start Date End Da te metFORMIN (GLUCOPHAGE) 1,000 mg tablet TAKE 1 TABLET TWICE A DAY Reorder 02/20/2019 08/19/2019 documented as of this encounter Care Teams Director Of Optimization Relationship Specialty Start Date End Date Edmar Temple MD [address] [place] [phone] PCP - General 11/21/13 documented as of this encounter
--- OUTSIDE RECORDS SUMMARY | 2024-04-22 04:26 | XMS_ITS | Encounter Summary ---
Author Organization [facility] Address [address] [place] [address] Care Team Providers Care Metal Hardener Name Role Phone Edmar Temple MD Primary Care Provider [phone] Reason for Visit * Reason Comments Other Encounter Details Date Type Department Care Team (Late st Contact Info) Description 02/18/2019 Refill [facility] Endocrinology - [facility] [address] [place] [address] Shanika Aquino NP 62 [facility] [address] [place] [address] Other Social History Tobacco Use [...] Da te metFORMIN (GLUCOPHAGE) 000 mg tablet TAKE 1 TABLET TWICE A DAY 180 Tab 1 02/20/2019 08/19/2019 documented in this encounter Plan of Treatment Upcoming Encounters Date Type Department Care Team (Late st Contact Info) Description 05/17/2024 13:00 EDT Office Visit [facility] Endocrinology [address] [phone] Twyla Mcclellan NP [address] [place] [phone] 08/30/2024 14:00 EST Office Visit [address] [address] Twyla Mcclellan NP [address] [place] [phone] documented as of this encounter Visit Diagnoses Not on filedocumented in this encounter Discontinued Medications Medication Sig Discontinue Reason Start Date End Da te metFORMIN (GLUCOPHAGE) 1,000 mg tablet TAKE 1 TABLET TWICE A DAY Reorder 08/22/2018 02/18/2019 documented as of this encounter Care Teams Metal Hardener Relationship Specialty Start Date End Date Edmar Temple MD [address] [place] [address] [employer] [address] [phone] PCP - General 11/21/13 documented as of this encounter
--- OUTSIDE RECORDS SUMMARY | 2024-04-22 04:26 | XMS_ITS | Encounter Summary ---
Author Organization [facility] Address [address] [place] [address] Care Team Providers Care Client Account Manager Name Role Phone Edmar Temple MD Primary Care Provider [phone] Reason for Visit * Reason Comments Diabetes Encounter Details Date Type Department Care Team (Latest Contact Info) Description 07/04/2021 13:00 EDT Office Visit [facility] Endocrinology - [facility] [address] [place] [address] Twyla Mcclellan NP 62 [facility] [address] [place] [address] Type 2 diabetes mellitus with hyperglycemia, with long-term current use of insulin ([facility]) (HCC) (Primary Dx); Status post gastric bypass for obesity; Hypothyroidism due to Rj's thyroiditis; Primary hypertension; Hyperlipidemia, unspecified hyperlipidemia type Social History Tobacco Use Types Packs/Day Years [...] Sign Reading Time Taken Comments Blood Pressure 136/65 07/04/2021 1302 EDT Pulse 99 07/04/2021 1302 EDT Temperature - - Respiratory Rate - - Oxygen Saturation - - Inhaled Oxygen Concentration - - Weight 110.1 kg (242 lb 12.8 oz) 07/04/2021 1302 EDT Height 172.7 cm (5' 7.99) 07/04/2021 1302 EDT Body Mass Index 36.93 07/04/2021 1302 EDT documented in this encounter Functional Status [...] hyperglycemia, with long-term current use of insulin ([facility]) 80 Units by subcutaneous - insulin pump route daily. 80 mL 3 07/04/2021 06/17/2022 documented in this encounter Progress Notes * Twyla Mcclellan, MACHINE CAGE MAKER - 07/04/2021 1300 EDT [facility] Diabetes Follow-Up Note Kymberly Stewart presents in [...] prescription(s): acetaminophen, amlodipine, atorvastatin, dexcom g6 sensor, dexcom g6 transmitter, calcium [...] reports that her job is very stressful HPI Review of Systems Constitutional: Positive for malaise/fatigue. [...] stable. Wt Readings from Last 3 Encounters: 07/04/21 (!) 110.1 kg (242 lb 12.8 oz) 07/12/19 (!) 110.8 kg (244 lb 3.2 oz) 01/06/19 (!) 116.9 kg (257 lb 11.2 oz) Patient exercise level is: moderately active. Social History Tobacco Use ??? Smoking status: Former Smoker Quit date: 09/26/2003 Years since quittin.7 ??? Smokeless tobacco: Never Used Substance Use Topics ??? Alcohol use: Yes Comment: social does not tolerate well since bariatric surgery PHYSICAL EXAMINATION: Vitals: BP 136/65 Pulse 99 Ht 172.7 cm (67.99) Wt (!) 110.1 kg (242 lb 12.8 oz) BMI 36.93 kg/m?? BMI: Body mass index is 36.93 kg/m??. Physical Exam Constitutional: Appearance: She is [...] LABS: Lab Results Component Value Date HGBA1C 7.7 (H) 07/04/2021 No results found for: CHOL, HDL, LDLBASE, TRIG, CHOLHDL Lab Results Component Value Date BUN 10 11/08/2009 CREATININE 0.70 04/14/2011 NA 140 11/08/2009 K 4.4 11/08/2009 Lab Results Component Value Date ALT 16 04/14/2011 Lab Results Component Value Date LABALBU 4.5 11/08/2009 UCREA 252.1 11/08/2009 MICRALBCRRAT 7.1 11/08/2009 ASSESSMENT: 1. Type 2 diabetes mellitus with hyperglycemia, with long-term current use of insulin ([facility]) ([facility]) PLAN: Medications: A1c 7.7 She does use her correction regularly Consider missed bolus reminders for her meals 12-1:30p, 6-7:30p Biggest issue seems to be a lack of bolusing many days with no bolusing at all Recommend aspirin daily. Insulin: Insulin stabilization is required:yes Non-insulin: diet. Recommended: Statin therapy and If intolerant to ACEI, then ARB therapy . Glucose monitoring dexcom. Referred to diabetic education program. no Referred to nut grader no. Patient referred to eye plant care worker for annual dilated eye exam. Lifestyle modifications: [...] CGM training from a CDE or certified link trainer Patient has received pump training from a CDE or certified link trainer and agrees to comply with the [facility] Endocrinology Pump Program Guidelines Patient/caregiver has completed diabetes education including carbohydrate counting and is motivatedto maintain optimal glucose control Lab Results Component Value Date HGBA1C 7.7 (H) 07/04/2021 I certify that I am the clinician managing this patient's diabetes. Return in three months. I spent a total of 45 minutes on the date of this encounter meeting with the patient and reviewing documentation/coordinating care as described in the above note. No procedures were performed at the time of the visit. Twyla Mcclellan NP 07/04/2021 13:42 * Jeffrey Moore MA - 07/04/2021 1300 EDT Fingerstick blood sample obtained for POCT Hemoglobin A1C performed for this DOS at the order of Twyla Mcclellan NP/ Hadley Mejia DO documented in this encounter Plan of Treatment Upcoming Encounters Date Type Department Care Team (Late st Contact Info) Description 05/17/2024 13:00 EDT Office Visit [facility] Endocrinology - [address] [address] Twyla Mcclellan NP 62 [facility] [address] [place] [address] 08/30/2024 14:00 EST Office Visit [facility] Endocrinology - [place] [address] [place] [address] Twyla Mcclellan, MACHINE CAGE MAKER 62 [facility] [address] [place] [address] documented as of this encounter Procedures Procedure Name Priority Date/Time Associated Diagnosis Comments POCT HEMOGLOBIN A1C, INTERFACED Routine 07/04/2021 13:05 EDT Type 2 diabetes mellitus with hyperglycemia, with long-term current use of insulin ([facility]) ([facility]) POCT CSN BARCODE HEMOGLOBIN A1C INT Routine 07/04/2021 13:03 EDT Type 2 diabetes mellitus with hyperglycemia, with long-term current use of insulin ([facility]) ([facility]) POCT HEMOGLOBIN A1C, INTERFACED ORDER Routine 07/04/2021 13:03 EDT Type 2 diabetes mellitus with hyperglycemia, with long-term current use of insulin ([facility]) ([facility]) documented in this encounter Results * (ABNORMAL) POCT HEMOGLOBIN A1C, INTERFACED (07/04/2021 13:05 EDT) Hemoglobin A1c, POC 7.7(H) <5.7 % 07/04/2021 13:[address] [facility] Blood VENOUS BLOOD / Unknown 07/04/2021 13:05 EDT 07/04/2021 13:22 EDT [address]arr[address] [facility] - 07/04/2021 13:22 EDT For Hgb A1c values => 10%, a venous blood measurement in the main laboratory for confirmation is available. Reference Range: <5.7% Normal 5.7-6.4% Prediabetes =>6.5% Diagnostic for diabetes (if confirmed). Goals for glycemic control in diabetes ADA 2017. For non adults with diabetes: Target <7.0% For children and adolescents with type 1 diabetes: Target <7.5% More or less stringent targets may be appropriate for individual patients. Test performed at Endocrinology. Twyla Mcclellan NP POINT OF CARE TEST ORDERABLES Performing Organization Address City/[facility]/ZIP Co de Phone Number [facility] [address] [place] [address] * POCT CSN BARCODE HEMOGLOBIN A1C INT (07/04/2021 13:03 EDT) Hold Hold 07/04/2021 14:[address] [facility] Blood VENOUS BLOOD / Unknown 07/04/2021 13:03 EDT 07/04/2021 13:03 EDT Twyla Mcclellan NP LAB INFO SERVICE AN D SUPPORT & PHONE RESULT Performing Organization Address City/[facility] Co de Phone Number [facility] [address] [place] [address] documented in this encounter Visit Diagnoses Diagnosis Type 2 diabetes mellitus with hyperglycemia, with long-term current use of insulin (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 Reorder 05/02/2020 07/04/2021 documented as of this encounter Care Teams Client Account Manager Relationship Specialty Start Date End Date Edmar Temple MD [facility] [employer] [address] [place] [phone] PCP - General 11/21/13 documented as of this encounter
--- OUTSIDE RECORDS SUMMARY | 2024-04-22 04:26 | XMS_ITS | Encounter Summary ---
Author Organization [facility] Address [address] [place] [address] Care Team Providers Care Planned Giving Officer Name Role Phone Edmar Temple MD Primary Care Provider Encounter Details Date Type Department Care Team (Late st Contact Info) Description 01/02/2021 Lab Requisition [facility] Pathology & Laboratory Medicine - [address] [address] Outr Resulting Lab, Provider Social History Tobacco [...] Info) Description 05/17/2024 13:00 EDT Office Visit [facility] Endocrinology - [facility] [address] [place] [address] Twyla Mcclellan NP 62 [facility] [address] [place] [address] 08/30/2024 14:00 EST Office Visit [facility] Endocrinology - [facility] [address] [place] [address] Twyla Mcclellan NP 62 [facility] [address] [place] [phone] documented as of this encounter Procedures Procedure Name Priority Date/Time Associated Diagnosis Comments VITAMIN D (25,OH) Routine 01/02/2021 10: 05 EDT documented in this encounter Results * (ABNORMAL) VITAMIN D (25,OH) (01/02/2021 10:05 EDT) 25OH Vitamin D Tot 29.8(L) 30.0 - 100.0 ng/mL 01/03/2021 10:20 EDT [facility] Comment: Vitamin D 25,OH Interpretive Ranges: Deficiency: ??<10.0 ng/mL Insufficiency: ??10.0 - 30.0 ng/mL Sufficiency: ??30.0 - 100.0 ng/mL Toxicity: ??>100.0 ng/mL Blood VENOUS BLOOD / Unknown 01/02/2021 10:05 EDT 01/02/2021 21:58 EDT Provider Outr Resulting Lab CHEMISTRY & BLOOD GAS ORDERABLES [facility] [address] [place] [address] documented in this encounter Visit Diagnoses Not on filedocumented in this encounter Care Teams Planned Giving Officer Relationship Specialty Start Date End Date Edmar Temple MD [address] [facility] [address] [place] [phone] PCP - General 11/21/13 documented as of this encounter
--- OUTSIDE RECORDS SUMMARY | 2024-04-22 04:26 | XMS_ITS | Encounter Summary ---
Author Organization [facility] Address [address] [place] [address] Care Team Providers Care Tafe Lecturer Name Role Phone Edmar Temple MD Primary Care Provider [phone] Encounter Details Date Type Department Care Team (Latest Contact Info) Description 12/26/2019 Travel Social History Tobacco Use Types Packs/Day Years [...] 9:48 EDT documented as of this encounter Functional Status [...] Info) Description 05/17/2024 13:00 EDT Office Visit [facility] Endocrinology - [address] [phone] Twyla Mcclellan NP 62 [facility] [address] [place] [address] 08/30/2024 14:00 EST Office Visit [facility] Endocrinology - [facility] [address] [place] [address] Twyla Mcclellan NP [address] [address] documented as of this encounter Visit Diagnoses Not on filedocumented in this encounter Care Teams Tafe Lecturer Relationship Specialty Start Date End Date Edmar Temple MD [address] [place] [address] [address] [place] [address] PCP - General 11/21/13 documented as of this encounter
--- OUTSIDE RECORDS SUMMARY | 2024-04-22 04:26 | XMS_ITS | Encounter Summary ---
Author Organization [facility] Address [address] [place] [address] Care Team Providers Care Career Development Facilitator Name Role Phone Edmar Temple MD Primary Care Provider [phone] Reason for Visit * Reason Onset Date Comments Appointment Related 10/30/2019 Encounter Details Date Type Department Care Team (Late st Contact Info) Description 10/30/2019 Telephone [facility] Endocrinology - [facility] [address] [place] [address] Shanika Aquino NP 62 [facility] [address] [place] [address] Appointment Related Social History Tobacco [...] encounter Miscellaneous Notes * Telephone Encounter - Laura Leiva - 10/30/2019 1405 EST LMOM to reschedule bumped 2.28.20 appt documented in this encounter Plan of Treatment Upcoming Encounters Date Type Department Care Team (Late st Contact Info) Description 05/17/2024 13:00 EDT Office Visit [facility] Endocrinology - [address] [phone] Twyla Mcclellan NP [address] [place] [address] 08/30/2024 14:00 EST Office Visit [address] [address] Twyla Mcclellan NP [address] [place] [address] documented as of this encounter Visit Diagnoses Not on filedocumented in this encounter Care Teams Career Development Facilitator Relationship Specialty Start Date End Date Edmar Temple MD [address] [place] [phone] PCP - General 11/21/13 documented as of this encounter
--- OUTSIDE RECORDS SUMMARY | 2024-04-22 04:27 | XMS_ITS | Encounter Summary ---
Author Organization [facility] Address [address] [place] [address] Care Team Providers Care Education Counselor Name Role Phone Edmar Temple MD Primary Care Provider [phone] Reason for Visit * Reason Onset Date Comments Medications Refill 01/17/2019 Encounter Details Date Type Department Care Team (Late st Contact Info) Description 01/17/2019 Refill [facility] Endocrinology - [facility] [address] [place] [address] Shanika Aquino NP 62 [facility] [address] [place] [address] Medications Refill Social History Tobacco [...] Dispensed Refills Start Date End Da te liraglutide (VICTOZA 3-NIKA) 0.6 mg/0.1 mL (18 mg/3 mL) injectable penIndications:Acquired hypothyroidism INJECT 1.8 MG INTO THE SKIN DAILY 27 mL 3 01/17/2019 03/08/2019 documented in this encounter Miscellaneous Notes * Telephone Encounter - Jeffrey De La Rosa RN - 01/17/2019 0922 EDTFrom: Kymberly S Terry Sent: 01/17/2019 9:21 EDT Subject: Medication Renewal Request Kymberly Wheat Terry would like a refill of the following medications: liraglutide (VICTOZA 3-NIKA) 0.6 mg/0.1 mL (18 mg/3 mL) injectable pen [Shanika Aquino NP] Preferred pharmacy: [facility] - [address] documented in this encounter Plan of Treatment Upcoming Encounters Date Type Department Care Team (Late st Contact Info) Description 05/17/2024 13:00 EDT Office Visit [facility] Endocrinology [address] [phone] Twyla Mcclellan NP [address] [place] [address] 08/30/2024 14:00 EST Office Visit [facility] Endocrinology [address] [phone] Twyla Mcclellan NP [address] [place] [phone] documented as of this encounter Visit Diagnoses Diagnosis Acquired hypothyroidism- Primary Unspecified hypothyroidism documented in this encounter Discontinued Medications Medication Sig Discontinue Reason Start Date End Da te liraglutide (VICTOZA 3-NIKA) 0.6 mg/0.1 mL (18 mg/3 mL) injectable penIndications:Acquired hypothyroidism INJECT 1.8 MG INTO THE SKIN DAILY Reorder 10/19/2017 01/17/2019 documented as of this encounter Care Teams Education Counselor Relationship Specialty Start Date End Date Edmar Temple MD [facility] [address] [place] [address] PCP - General 11/21/13 documented as of this encounter
--- OUTSIDE RECORDS SUMMARY | 2024-04-22 04:27 | XMS_ITS | Encounter Summary ---
Author Organization [facility] Address [address] [place] [address] Care Team Providers Care Leasing Associate Name Role Phone Edmar Temple MD Primary Care Provider [phone] Reason for Visit * Reason Onset Date Comments DME 01/20/2019 Encounter Details Date Type Department Care Team (Late st Contact Info) Description 01/20/2019 Telephone [facility] Endocrinology - [facility] [address] [place] [address] Shanika Aquino NP 62 [facility] [address] [place] [address] DME Social History Tobacco Use [...] Notes * Telephone Encounter - Ania Sotelo - 01/20/2019 1005 EDT Electronically faxed Dexcom CMN for cgm therapy to [phone] on 01/20/19 documented in this encounter Plan of Treatment Upcoming Encounters Date Type Department Care Team (Late st Contact Info) Description 05/17/2024 13:00 EDT Office Visit [facility] Endocrinology - [address] [phone] Twyla Mcclellan NP [address] [place] [phone] 08/30/2024 14:00 EST Office Visit [address] [address] Twyla Mcclellan NP [address] [place] [phone] documented as of this encounter Visit Diagnoses Not on filedocumented in this encounter Care Teams Leasing Associate Relationship Specialty Start Date End Date Edmar Temple MD [address] [place] [phone] PCP - General 11/21/13 documented as of this encounter
--- OUTSIDE RECORDS SUMMARY | 2024-04-22 04:27 | XMS_ITS | Encounter Summary ---
Author Organization [facility] Address [address] [place] [address] Care Team Providers Care Crystal Slicer Name Role Phone Edmar Temple MD Primary Care Provider [phone] Reason for Visit * Reason Onset Date Comments DME 02/02/2019 Encounter Details Date Type Department Care Team (Late st Contact Info) Description 02/02/2019 Telephone [facility] Endocrinology - [facility] [address] [place] [address] Shanika Aquino NP 62 [facility] [address] [place] [address] DME Social History Tobacco Use [...] * Telephone Encounter - Ania Sotelo - 02/02/2019 0946 EDT Electronically faxed Dexcom DWO for cgm therapy on 02/02/19 to [phone] documented in this encounter Plan of Treatment Upcoming Encounters Date Type Department Care Team (Late st Contact Info) Description 05/17/2024 13:00 EDT Office Visit [facility] Endocrinology - [address] [phone] Twyla Mcclellan NP [address] [place] [phone] 08/30/2024 14:00 EST Office Visit [address] [address] Twyla Mcclellan NP [address] [place] [phone] documented as of this encounter Visit Diagnoses Not on filedocumented in this encounter Care Teams Crystal Slicer Relationship Specialty Start Date End Date Edmar Temple MD [address] [place] [phone] PCP - General 11/21/13 documented as of this encounter
--- OUTSIDE RECORDS SUMMARY | 2024-04-22 04:27 | XMS_ITS | Encounter Summary ---
Author Organization [facility] Address [address] [place] [address] Care Team Providers Care Arcade Technician Name Role Phone Edmar Temple MD Primary Care Provider [phone] Reason for Visit * Reason Comments Other Encounter Details Date Type Department Care Team (Late st Contact Info) Description 08/21/2018 Refill [facility] Endocrinology - [facility] [address] [place] [address] Shanika Aquino NP 62 [facility] [address] [place] [address] Other Social History Tobacco Use [...] TABLET TWICE A DAY 180 Tab 1 08/22/2018 02/18/2019 documented in this encounter Plan of Treatment Upcoming Encounters Date Type Department Care Team (Late st Contact Info) Description 05/17/2024 13:00 EDT Office Visit [facility] Endocrinology [address] [phone] Twyla Mcclellan NP [address] [place] [phone] 08/30/2024 14:00 EST Office Visit [address] [address] Twyla Mcclellan NP [address] [place] [phone] documented as of this encounter Visit Diagnoses Not on filedocumented in this encounter Discontinued Medications Medication Sig Discontinue Reason Start Date End Da te metFORMIN (GLUCOPHAGE) 1,000 mg tablet TAKE 1 TABLET TWICE A DAY Reorder 08/23/2017 08/21/2018 documented as of this encounter Care Teams Arcade Technician Relationship Specialty Start Date End Date Edmar Temple MD [address] [place] [address] [address] [phone] PCP - General 11/21/13 documented as of this encounter
--- OUTSIDE RECORDS SUMMARY | 2024-04-22 04:27 | XMS_ITS | Encounter Summary ---
Author Organization [facility] Address [address] [place] [address] Care Team Providers Care Ticket Sales Supervisor Name Role Phone Edmar Temple MD Primary Care Provider [phone] Encounter Details Date Type Department Care Team (Late st Contact Info) Description 05/05/2016 Results Only [facility] [phone] Edmar Temple MD [address] [employer] [address] [place] [address] Social History Tobacco Use Types Packs/Day Years Used Date Smoking Tobacco: Former Cigarettes Q uit: 09/26/2003 Alcohol Use Standard Drinks/Week Comments Yes 0 [...] visiting a doctor's office or shopping? No 02/28/2016 Cognitive Status Response Date of Assessm ent Because of a physical, menta l, or emotional condition, does this person have serious difficulty concentrating, remembering, or making decisions? No 02/28/2016 documented as of this encounter Plan of Treatment Upcoming Encounters Date Type Department Care Team (Late st Contact Info) Description 05/17/2024 13:00 EDT [facility] Endocrinology - [address] [address] Twyla Mcclellan NP 62 [facility] [address] [place] [address] 08/30/2024 14:00 EST [facility] Visit [facility] Endocrinology - [address] [address] Twyla Mcclellan NP 62 [facility] [address] [place] [address] documented as of this encounter Procedures Procedure Name Priority Date/Time Associated Diagnosis Comments PAP TEST- RESULT ONLY Routine 05/05/2016 0:00 EDT documented in this encounter Results * PAP TEST- RESULT ONLY (05/05/2016 0:00 EDT) Pathology Report: CYTOPATHOLOGY REPORT Reports generated via electronic interface contain original data; however they are lacking the format of the original report. Caution should be taken when reading/interpreti ng unformatted reports. Name: ? LINDA STEWART ? Accession #: ? [id number] ? : ? 1975 (Age: 41) ??F ?Collect Date: ? 05/05/2016 ? Location: ? [facility] ? Receive Date: ? 05/06/2016 ? Provider: EDMAR TEMPLE MD Copy to: ? Final Report SPECIMEN ADEQUACY ? Satisfactory for Evaluation - transformation zone component present GENERAL CATEGORIZATION ? Negative for Intraepithelial Lesion or Malignancy INTERPRETATION ? Reactive cellular changes associated with inflammation present (includes repair). Last Menstrual Period: 05/01/2016 Hormonal/Contracep tive status: Tubal ligation None Specimen/Source: ??Pap Test, Cervix/Endocervix, ThinPrep Imaging System with manual evaluation Document reviewed and electronically signed by: ? NAKUL ISSA MD ? Report ??Date: 05/12/2016 17:28 HPV with Pap Test ? Date Ordered: ? 05/12/2016 ? Status: ?? Signed Out ?Date Complete: ? 05/15/2016 ? By: ??System Interface ? Date Reported: ? 05/15/2016 ? Interpretation RESULT: Negative for HPV. No E6 or E7 mRNA is detected from HPV types 16,18,31,33,35, 39,45,51,52,56,58, 59,66, and 68 by bank messenger mediated amplification. Comments Document reviewed and electronically signed by: ? System Interface ? Report date: 05/15/2016 By the signature above, the attending physician certifies that he/she has personally conducted a gross and/or microscopic examination of the described specimens and rendered or confirmed the above diagnosis. End of Report [facility] 05/05/2016 05/06/2016 Edmar Temple MD PATHOLOGY ORDERABLES [facility] [address] [place] [address] documented in this encounter Visit Diagnoses Not on filedocumented in this encounter Care Teams Ticket Sales Supervisor Relationship Specialty Start Date End Date Edmar Temple MD [address] [place] [address] PCP - General 11/21/13 documented as of this encounter
--- OUTSIDE RECORDS SUMMARY | 2024-04-22 04:27 | XMS_ITS | Encounter Summary ---
Author Organization [facility] Address [address] [place] [address] Care Team Providers Care Multigraph Operator Name Role Phone Edmar Temple MD Primary Care Provider [phone] Reason for Visit * Reason Comments Diabetes Encounter Details Date Type Department Care Team (Latest Contact Info) Description 06/15/2017 10:40 EDT Office Visit [facility] Endocrinology - [facility] [address] [place] [address] Shanika Aquino NP 62 [facility] [address] [place] [address] Diabetes mellitus without complication ([facility]) (Primary Dx) Social History Tobacco Use Types [...] Sign Reading Time Taken Comments Blood Pressure 151/70 06/15/2017 1045 EDT Pulse 75 06/15/2017 1045 EDT Temperature - - Respiratory Rate - - Oxygen Saturation - - Inhaled Oxygen Concentration - - Weight 111.6 kg (246 lb) 06/15/2017 1045 EDT Height 170.2 cm (5' 7.01) 06/15/2017 1045 EDT Body Mass Index 38.52 06/15/2017 1045 EDT documented in this encounter Functional Status Functional Status Response Date of Assess ment Because of a physical, menta l, or emotional condition, does this person have difficulty doing errands alone such as visiting a doctor's office or shopping? No 06/15/2017 Cognitive Status Response Date of Assessm ent Because of a physical, menta l, or emotional condition, does this person have serious difficulty concentrating, remembering, or making decisions? No 06/15/2017 documented as of this encounter Progress Notes * Ania Sotelo - 06/15/2017 1040 EDT Fingerstick blood sample obtained for POCT Hemoglobin A1C performed for this DOS at the order of JETT Yoon/Maximus Polanco MD * Shanika Aquino ANP - 06/15/2017 1040 EDT [facility] Diabetes Follow-Up Note CHIEF COMPLAINT: Linda Stewart presents in clinic today with: 1. Diabetes mellitus without complication Diabetes PROBLEM: Hypothyroidism, hypertension, sleep apnea, status post gastric bypass, type 2 diabetes controlled on pump therapy, asthma, dyslipidemia. ALLERGIES: She has no known drug allergies. SUBJECTIVE: Linda is a 42-year-old woman with type 2 diabetes managed on an insulin pump. Seen in follow-up for medication adjustment and complication surveillance. She was last seen 12/18/2016. Please see note for details. She says she has been stressed between her job, working for the [employer]. She has been trying to get on the DEXCOM continuous glucose sensor for a few months, but has had snags with the insurance company despite frequent contact in filling out applicationstwice. She injured her ankle 3 weeks ago was in an air cast now in an ISMAEL at limiting exercise, which is really frustrating her. Results for LINDA STEWART ( ) as of 06/15/2017 14:54 Ref. Range 02/28/2016 14:57 05/05/2016 00:00 07/31/2016 10:19 12/18/2016 13:42 06/15/2017 10:46 Hemoglobin A1c, POC Latest Ref Range: 5.7 % 7.6 (A) Hemoglobin A1C, POC Interfaced Latest Ref Range: <5.7 % 8.3 (H) 8.7 (H) 7.8 (H) She takes luraglutide, which is helping her cut down her insulin and lose weight, plus metformin and insulin pump therapy. She wears an Omnipod insulin pump. No problems with her pump, but is gettinga rash under POD. Uses a skin barrier, but still having problems, so given her the name of the new one. . Her current settings are: Basal rate :MN 3.0, 6:00 -2.5, 10 4.0 , 19:00 2.4 units Carb to insulin ratio is 15:1. Sensitivity is 15:1 for BS>100. Active insulin time 3.0 She uses the extended bolus with meals 50% over 2 hours, and the temp basal feature with exercise 50% decrease for 1-2 hours or suspends. Her average daily basal last week was 62 units and boluses are about 6 units a meal Pump download shows only 9 tests in the last 2 weeks, ranging from 78-264, with an average of 154 . ROS: She had gastric bypass surgery in July of 2009. Her highest weight was 320 and and lost 61pounds, - her weight is stable. She denies [...] C- section Wt. 9 lb 8 oz. Linda Stewart recently has a history of being in poor glycemic control. Patient's home regimen consists of has a current medication list which includes the following prescription(s): acetaminophen, atorvastatin, calcium carbonate/vitamin d3, cholecalciferol (vitamin d3),cinnamon bark, citalopram, cyanocobalamin (vitamin b-12), ferrous sulfate, humalog, insulin glargine, insulin pen needles 31g x 12/03, levothyroxine, metformin, multivitamin, victoza 3-walter, vitamin bcomplex, and vitamin e. The patient has experienced the following acute complications: hypoglycemia - mild-moderate and hyperglycemia - mild-moderate. Social History Substance Use Topics ??? Smoking status: Former Smoker Quit date: 09/26/2003 ??? Smokeless tobacco: Not on file ??? Alcohol use Yes Comment: social does not tolerate well since bariatric surgery PHYSICAL EXAMINATION: Vitals: BP (!) 151/70 Pulse 75 Ht 170.2 cm (67.01) Wt (!) 111.6 kg (246 lb) LMP 06/06/2017 (Approximate) BMI 38.52 kg/m2 BMI: Body mass index is 38.52 kg/(m^2). On physical exam well developed morbidly obese woman in no acute distress. Heart and lung sound unremarkable with no carotid bruit. Neck supple without thyromegaly. No leg edema. LABS: See EMR Last available done 04/18/2015 at [facility], TSH and lipid panel unremarkable No urine microalbumin found. ASSESSMENT/PLAN: Glycemic control has improved weight is stable. Excellent response to luraglutide. Needs to check blood sugars more for pump adjustment. Reminded her she could take 1 shot of Lantus daily if she wanted instead of taking it all by basal, which would then allow her to wear her pods 3 instead of 2 days. For now she like to continue as is. Getting on the continuous glucose sensor should help stabilize her blood sugars more, but will need to test at least twice a day to calibrate. No recent lipid panel found . She takes Lipitor Lipid management deferred to PCP Blood pressure , high today Not on an ISMAEL or ARB. Was on an Ismael previously stopped because of a cough. No recent micoalbumin available. - Hypothyroidism - on Levothyroxin - clinically euthyroid. No recent TSH. But last was unremarkable 1. Diabetes mellitus without complication Referred to diabetic education program. No Referred to childcare center director met with RD, briefly to discuss continuous glucose sensor therapy Patient referred to eye neonatal intensive care nurse for annual dilated eye exam. Up to date Lifestyle modifications: recommend losing weight Patient does demonstrate knowledge of diabetes and expectations. Patient does understand medication regimen. Barriers to adherence: Financial and Emotional. PLAN: BMP, lipid panel , LFT's , tsh and urine microalbumin No changes today Work on testing more Try skin TAC spray barrier for catheter sites. F/U 4 months. Call DEXCOM rep. Given contact information Goals and plan to achieve these discussed. Systolic blood pressure less than 140. And diastolic blood pressure less than 80. Hemoglobin A1C less than 7%. LDL cholesterol: 70 to 99. HDL males >40 and females >50 mgm/dl Triglycerides fasting <150 mgm/dl Recommend ARB if high BP persists, jon with proteinuria JETT Yoon 06/15/2017 11:01 I spent a total of 25 minutes in face to face time with this patient, and 15 minutes of that time was spent in counseling and coordination of care as described in This progress note documented in this encounter Plan of Treatment Upcoming Encounters Date Type Department Care Team (Late st Contact Info) Description 05/17/2024 13:00 EDT Office Visit [facility] Endocrinology [address] [address] Twyla Mcclellan NP [address] [place] [phone] 08/30/2024 14:00 EST Office Visit [address] [address] Twyla Mcclellan NP [address] [place] [phone] documented as of this encounter Procedures Procedure Name Priority Date/Time Associated Diagnosis Comments POCT HEMOGLOBIN A1C, INTERFACED Routine 06/15/2017 10:46 EDT Diabetes mellitus without complication ([facility]) documented in this encounter Results * (ABNORMAL) POCT HEMOGLOBIN A1C (10/19/2017 10:30 EST) Hemoglobin A1C, POC Interfaced 7.6(H) <5.7 % 10/19/2017 10:52 EST [facility] facing baster jumpbasting ID [id number] 10/19/2017 10:52 EST [facility] Comment:Test performed at En docrinology Blood specimen (specimen) BLOOD SPECIMEN / Unknown 10/19/2017 10:30 EST 10/19/2017 10:52 EST Shanika Aquino SERVICE SUPPORT REPRESENTATIVE POINT OF CARE TEST ORDERABLES Performing Organization Address [facility] Co de Phone Number [facility] [address] [place] [address] * (ABNORMAL) POCT HEMOGLOBIN A1C (06/15/2017 10:46 EDT) Hemoglobin A1C, POC Interfaced 7.8(H) <5.7 % 06/15/2017 11:02 EDT [facility] facing baster jumpbasting ID [id number] 06/15/2017 11:02 EDT [facility] Comment:Test performed at En docrinology Blood specimen (specimen) BLOOD SPECIMEN / Unknown 06/15/2017 10:46 EDT 06/15/2017 11:02 EDT Shanika Aquino SERVICE SUPPORT REPRESENTATIVE POINT OF CARE TEST ORDERABLES Performing Organization Address [facility] de Phone Number [facility] [address] [place] [address] documented in this encounter Visit Diagnoses Diagnosis Diabetes mellitus without complication ([facility])- Primary Type II or unspecified type diabetes mellitus without mention of complication, not stated as uncontrolled documented in this encounter Historical Medications * This list may reflect changes made after this encounter. Medication Sig Dispensed Refills Start Date End Date Cinnamon Bark 500 mg capsule Take 1,000 mg by mouth daily. added in this encounter Orders Equipment Count Last Ordered Date First Orde red Date GENERIC DME ORDER 1 06/15/2017 documented in this encounter Care Teams Multigraph Operator Relationship Specialty Start Date End Date Edmar Temple MD [facility] [employer] [address] [place] [address] PCP - General 11/21/13 documented as of this encounter
--- OUTSIDE RECORDS SUMMARY | 2024-04-22 04:27 | XMS_ITS | Encounter Summary ---
Author Organization [facility] Address [address] [place] [address] Care Team Providers Care Distribution Associate Name Role Phone Edmar Temple MD Primary Care Provider [phone] Reason for Visit * Reason Comments Diabetes Encounter Details Date Type Department Care Team (Latest Contact Info) Description 04/25/2015 10:40 EDT Office Visit [facility] Endocrinology - [facility] [address] [place] [address] Shanika Aquino NP [address] [facility] [address] [place] [address] Hyperglycemia (Primary Dx) Discharge Disposition: Auto Discharge Social History Tobacco Use Types Packs/Day Years [...] Sign Reading Time Taken Comments Blood Pressure 132/67 04/25/2015 1043 EDT Pulse 74 04/25/2015 1043 EDT Temperature - - Respiratory Rate - - Oxygen Saturation - - Inhaled Oxygen Concentration - - Weight 114.3 kg (252 lb) 04/25/2015 1043 EDT Height 169.2 cm (5' 6.61) 04/25/2015 1043 EDT Body Mass Index 39.93 04/25/2015 1043 EDT documented in this encounter Functional Status Functional Status Response Date of Assess ment Because of a physical, menta l, or emotional condition, does this person have difficulty doing errands alone such as visiting a doctor's office or shopping? No 04/25/2015 Cognitive Status Response Date of Assessm ent Because of a physical, menta l, or emotional condition, does this person have serious difficulty concentrating, remembering, or making decisions? No 04/25/2015 documented as of this encounter Discharge Diagnoses Diagnosis 790.29 OTHER ABNORMAL GLUCOSE[ICD-9-CM] documented in this encounter Patient Instructions * Patient Instructions* Shanika Aquino ANP - 04/25/2015 19:00 EDT PLAN: Change breakfast and dinner ratio from 20:1 to 15:1. (Breakfast 6 AM till 10 AM), Continue 20:1 at lunch, (dinner 5 PM till 8 PM) then resume 20:1 till MN If getting low after breakfast change ratio to 18:1 Consider taking some Lantus daily to decrease pump basal insulin demands. documented in this encounter Ordered Prescriptions Prescription Sig Dispensed Refills Start Date End Da te insulin aspart (NOVOLOG) 100 unit/mL injection Inject 200 Units into the skin daily Omnipod insulin pump 180 mL 3 04/25/2015 03/13/2016 documented in this encounter Discharge Disposition Disposition Code Departure Means Destination Auto Discharge documented in this encounter Progress Notes * Shanika Aquino ANP - 04/25/[address] [facility] Diabetes Follow-Up Note CHIEF COMPLAINT: Kymberly Stewart presents in clinic today with: No diagnosis found. Diabetes PROGRESS/FOLLOWUP NOTE - 07/10/2014 PROBLEM: Hypothyroidism, hypertension, sleep apnea, status post gastric bypass, type 2 diabetes controlled on pump therapy, asthma, dyslipidemia. ALLERGIES: She has no known drug allergies. SUBJECTIVE: Kymberly is a 40-year-old woman with type 2 diabetes managed on an insulin pump. Seen in follow-up for medication adjustment and complication surveillance. Hemoglobin A1c las visit was 8.0%%, and today is 8.3%. She is not surprised since went to a lot of parties and picnics this past summer. In addition, at her last visit, I made adjustments for stronger boluses, but by mistake. she did not enter them in her pump. She had gastric bypass surgery in July of 2009. Her highest weight was 320 and a loss of 61 pounds. And weight is neutral now. She takes luraglutide , which is helping her cut down her insulin and lose weight, plus metformin and insulin pump therapy . Her current settings are: She has titrated on her basals, which are as follows: Midnight is 1.6, 6:00 a.m. is 2.0, 10 AM 2.8 1:30 PM 3.2 and 7 PM 2.4 units Carb to insulin ratio is 20:1. Sensitivity is 20:1. She uses the extended bolus with meals 50% over 2 hours, and the temp basal feature with exercise 50% decrease for 1-2 hours or suspends. She denies chest pain, shortness of breath, numbness, tingling, calf pain, no polyuria, polydipsia,polyphagia. No blurred vision and her eye exams are up to date. No hot or cold intolerance, hair orskin changes, constipation, feeling of a lump in her throat, tremors, stomach cramping. She detectsher hypoglycemia appropriately around in 70's, but that has not been a major problem. Download of her pump shows she tests 1-3 times/day. She uses her bolus wizard to do most of her pump calculations. She eats mostly protein and some fat. Fasting blood sugars range 1:15 to 264, averaging 168 Lunchtime lunch, range 198-501, averaging 336 post lunch, range 69 - 262, averaging 179. Dinner range 163-75, averaging 211 Bedtime. Range 160-500 averaging 292 Overall 63% in target Her first was with her son delivered 03/2005 by an emergency at 38 weeks gestational age. He was 8 pounds 2 ounces. She had some hypertension and bleeding during her .thenher daughter was born 2010, FT planned C- section And weight 9 lb 8 oz. Kymberly Stewart recently has a history of being in poor glycemic control. Patient's home regimen consists of has a current medication list which includes the following prescription(s): acetaminophen, blood glucose, calcium carbonate/vitamin d3, cholecalciferol (vitamin d3), citalopram, cyanocobalamin (vitamin b-12), ferrous fumarate, insulin aspart, insulin glargine, levo thyroxine, metformin, multivitamin, vitamin b complex, and vitamin e. The patient has experienced the following acute complications: hypoglycemia - mild-moderate and hyperglycemia - mild-moderate. History Substance Use Topics ??? Smoking status: Former Smoker Quit date: 09/26/2003 ??? Smokeless tobacco: Not on file ??? Alcohol Use: Yes Comment: social does not tolerate well since bariatric surgery PHYSICAL EXAMINATION: Vitals: BP 132/67 mmHg Pulse 74 Ht 169.2 cm (66.61) Wt 114.306 kg (252 lb) BMI 39.93 kg/m2 LMP 04/09/2015 (Approximate) BMI: Body mass index is 39.93 kg/(m^2). On physical exam well developed morbidly obese woman in no acute distress. Heart and lung sound unremarkable with no carotid bruit. Neck supple without thyromegaly. No leg edema. LABS: Last done 04/18/2015 at [facility] - see EMR. CMP, TSH and lipid panel unremarkable ASSESSMENT/PLAN: Slip in glycemic control, attributed to relaxed lifestyle the summer and by mistake did not enter last visit. Recommendations. Also works very stressful since her work partner is on medical leave, so she is traveling a lot. Excellent response to luraglutide, losing weight, and , has maintain weight loss. . On a statin now. Lipid management deferred to PCP Blood pressure stable today Not on an BLADE or ARB. micoalbumin unremarkable - Hypothyroidism - on Levothyroxin - TSH unremarkable No diagnosis found. Our office will provide ongoing management of this patients' diabetes with a hemoglobin A1C goal ofless than 7. We have instructed the patient to call us with blood sugar values. I would like you tocontinue to manage their blood pressure, lipids and other preventive care. Referred to diabetic education program. No Referred to diesel engine engineer no Patient referred to eye healthcare translator for annual dilated eye exam. Up to date Lifestyle modifications: recommend losing weight Patient does demonstrate knowledge of diabetes and expectations. Patient does understand medication regimen. Barriers to adherence: Financial and Emotional. PLAN: Change breakfast and dinner ratio from 20:1 to 15:1. (Breakfast 6 AM till 10 AM), Continue 20:1 at lunch, (dinner 5 PM till 8 PM) then resume 20:1 till MN If getting low after breakfast change ratio to 18:1 Consider taking some Lantus daily to decrease pump basal insulin demands. Goals and plan to achieve these discussed. Systolic blood pressure less than 140. And diastolic blood pressure less than 80. Hemoglobin A1C less than 7%. LDL cholesterol: 70 to 99. HDL males >40 and females >50 mgm/dl Triglycerides fasting <150 mgm/dl JETT Yoon 04/25/2015 10:57 I spent a total of 25 minutes [...] Visit [facility] Endocrinology - [address] [id number] Twyla Mcclellan NP [address] [place] [phone] 08/30/2024 14:00 EST Office Visit [address] [id number] Twyla Mcclellan NP [address] [place] [phone] documented as of this encounter Visit Diagnoses Diagnosis Hyperglycemia- Primary Other abnormal glucose documented in this encounter Discontinued Medications Medication Sig Discontinue Reason Start Date End Da te insulin aspart (NOVOLOG) 100 unit/mL injectionIndications:Maya betes mellitus ([facility]),Hypothyroidism Inject 200 Units into the skin daily Omnipod insulin pump Reorder 11/07/2014 04/25/2015 documented as of this encounter Care Teams Distribution Associate Relationship Specialty Start Date End Date Edmar Temple MD [address] [place] [address] [address] [place] [phone] PCP - General 11/21/13 documented as of this encounter
--- OUTSIDE RECORDS SUMMARY | 2024-04-22 04:27 | XMS_ITS | Encounter Summary ---
Author Organization [facility] Address [address] [place] [address] Care Team Providers Care Personal Fitness Manager Name Role Phone Edmar Temple MD Primary Care Provider [phone] Reason for Visit * Reason Comments Other Encounter Details Date Type Department Care Team (Late st Contact Info) Description 11/12/2015 [facility] Endocrinology - [facility] [address] [place] [address] Shanika Aquino NP [address] [facility] [address] [place] [address] Other Social History Tobacco Use [...] visiting a doctor's office or shopping? No 10/24/2015 Cognitive Status Response Date of Assessm ent Because of a physical, menta l, or emotional condition, does this person have serious difficulty concentrating, remembering, or making decisions? No 10/24/2015 documented as of this encounter Miscellaneous Notes * Telephone Encounter - Tish Brown RN - 11/13/2015 1127 EST Not on current med list and has stop date of 03/27/15 on history meds. Can not determine from recent ANP note if pt still on. Will route to provider for approval. Tish Brown, RN documented in this encounter Plan of Treatment Upcoming Encounters Date Type Department Care Team (Late st Contact Info) Description 05/17/2024 13:00 EDT Office Visit [facility] Endocrinology - [address] [address] Twyla Mcclellan NP [address] [place] [phone] 08/30/2024 14:00 EST Office Visit [address] [address] Twyla Mcclellan NP [address] [place] [phone] documented as of this encounter Visit Diagnoses Not on filedocumented in this encounter Care Teams Personal Fitness Manager Relationship Specialty Start Date End Date Edmar Temple MD [address] [place] [phone] PCP - General 11/21/13 documented as of this encounter
--- OUTSIDE RECORDS SUMMARY | 2024-04-22 04:27 | XMS_ITS | Encounter Summary ---
Author Organization [facility] Address [address] [place] [address] Care Team Providers Care Machine Cutter Name Role Phone Edmar Temple MD Primary Care Provider [phone] Encounter Details Date Type Department Care Team (Late st Contact Info) Description 12/27/2014 Orders Only [facility] Endocrinology - [address] [address] Zunilda Oconnell CDE [address] [place] [address] [address] [place] [address] Hypothyroidism; Diabetes mellitus (CMS-HCC) ([facility]) Social History Tobacco Use Types Packs/Day Years [...] documented as of this encounter Functional Status Cognitive Status Response Date of Assessm ent Because of a physical, menta l, or emotional condition, do you have serious difficulty concentrating, remembering, or making decisions? (5 years old or older) Yes 04/15/2011 documented as of this encounter Ordered Prescriptions Prescription Sig Dispensed Refills Start Date End Da te metFORMIN (GLUCOPHAGE) 1,000 mg tabletIndications:Hypothy roidism,Diabetes mellitus (HCC-CMS) Take 1 Tab by mouth 2 times daily 180 Tab 3 12/27/2014 11/28/2015 liraglutide (VICTOZA 3-NIKA) 0.6 mg/0.1 mL (18 mg/3 mL) injectable penIndications:Hypothyroi dism,Diabetes mellitus (HCC-CMS) Inject 1.8 mg into the skin daily for 90 days 9 Syringe 3 12/27/2014 04/14/2016 documented in this encounter Plan of Treatment Upcoming Encounters Date Type Department Care Team (Late st Contact Info) Description 05/17/2024 13:00 EDT Office Visit [facility] Endocrinology [address] [address] Twyla Mcclellan NP [address] [place] [phone] 08/30/2024 14:00 EST Office Visit [address] [address] Twyla Mcclellan NP [address] [place] [phone] documented as of this encounter Visit Diagnoses Diagnosis Hypothyroidism Unspecified hypothyroidism Diabetes mellitus (HCC-CMS) Type II or unspecified type diabetes mellitus without mention of complication, not stated as uncontrolled documented in this encounter Discontinued Medications Medication Sig Discontinue Reason Start Date End Da te liraglutide (VICTOZA 3-NIKA) 0.6 mg/0.1 mL (18 mg/3 mL) injectable penIndications:Hypothyro idism,Diabetes mellitus (HCC-CMS) Inject 1.8 mg into the skin daily for 90 days Reorder 11/07/2014 12/27/2014 metFORMIN (GLUCOPHAGE) 1,000 mg tabletIndications:Hypoth yroidism,Diabetes mellitus (HCC-CMS) Take 1 Tab by mouth 2 times daily Reorder 12/25/2014 12/27/2014 documented as of this encounter Care Teams Machine Cutter Relationship Specialty Start Date End Date Edmar Temple MD [address] [place] [address] [employer] [address] [place] [phone] PCP - General 11/21/13 documented as of this encounter
--- OUTSIDE RECORDS SUMMARY | 2024-04-22 04:27 | XMS_ITS | Encounter Summary ---
Author Organization [facility] Address [address] [place] [address] Care Team Providers Care Apartment Rental Clerk Name Role Phone Edmar Temple MD Primary Care Provider Reason for Visit * Reason Onset Date Comments DME 01/31/2019 G5 /need letter stating she is a Type 2 Encounter Details Date Type Department Care Team (Late st Contact Info) Description 01/31/2019 Telephone [facility] Endocrinology - [facility] [address] [place] [address] Shanika Aquino NP [address] [facility] [address] [place] [address] DME (G5 /need letter stating she is a Type 2 ) Social History Tobacco Use Types Packs/Day [...] Notes * Telephone Encounter - Lynda Smith - 02/08/2019 1111 EDT Left message for patient that the corrected form was faxed and also scanned into her chart. * Telephone Encounter - Raudel Che - 01/31/2019 1448 EDT Patient asking if letter went over to [employer] for her G-5 stating she was a type 2 diabetic. It had gone over stating she was a type 1. Has this been resent. Please advise documented in this encounter Plan of Treatment Upcoming Encounters Date Type Department Care Team (Late st Contact Info) Description 05/17/2024 13:00 EDT Office Visit [facility] Endocrinology - [address] [phone] Twyla Mcclellan NP [address] [place] [phone] 08/30/2024 14:00 EST Office Visit [facility] Endocrinology [address] [address] Twyla Mcclellan NP [address] [place] [phone] documented as of this encounter Visit Diagnoses Not on filedocumented in this encounter Care Teams Apartment Rental Clerk Relationship Specialty Start Date End Date Edmar Temple MD [address] [place] [phone] PCP - General 11/21/13 documented as of this encounter
--- OUTSIDE RECORDS SUMMARY | 2024-04-22 04:27 | XMS_ITS | Encounter Summary ---
Author Organization [facility] Address [address] [place] [address] Care Team Providers Care Sap Integration Architect Name Role Phone Edmar Temple MD Primary Care Provider [phone] Reason for Visit * Reason Onset Date Comments DME 08/09/2017 Encounter Details Date Type Department Care Team (Late st Contact Info) Description 08/09/2017 Telephone [facility] Endocrinology - [facility] [address] [place] [address] Shanika Aquino NP [address] [facility] [address] [place] [address] DME Social History Tobacco Use [...] No 06/15/2017 documented as of this encounter Miscellaneous Notes * Telephone Encounter - Denise Ortiz - 08/09/2017 1509 EST [employer] Certificate of Medical Necessity Form filled out for diabetic supplies. Form faxed with 2 most recent progress notes and sent to be scanned on 08/09/2017. documented in this encounter Plan of Treatment Upcoming Encounters Date Type Department Care Team (Late st Contact Info) Description 05/17/2024 13:00 EDT Office Visit [facility] Endocrinology - [address] [phone] Twyla Mcclellan NP [address] [place] [phone] 08/30/2024 14:00 EST Office Visit [address] [address] Twyla Mcclellan NP [address] [place] [phone] documented as of this encounter Visit Diagnoses Not on filedocumented in this encounter Care Teams Sap Integration Architect Relationship Specialty Start Date End Date Edmar Temple MD [address] [place] [address] [address] [place] [phone] PCP - General 11/21/13 documented as of this encounter
--- OUTSIDE RECORDS SUMMARY | 2024-04-22 04:27 | XMS_ITS | Encounter Summary ---
Author Organization [facility] Address [address] [place] [address] Care Team Providers Care Veneer Stock Layer Name Role Phone Edmar Temple MD Primary Care Provider [phone] Reason for Visit * Reason Onset Date Comments Medications Refill 04/14/2016 Encounter Details Date Type Department Care Team (Late st Contact Info) Description 04/14/2016 Telephone [facility] Endocrinology - [address] [address] April Tenorio RN Medications Refill Social History Tobacco Use Types [...] No 02/28/2016 documented as of this encounter Ordered Prescriptions Prescription Sig Dispensed Refills Start Date End Da te liraglutide (VICTOZA 3-NIKA) 0.6 mg/0.1 mL (18 mg/3 mL) injectable penIndications:Acquired hypothyroidism Inject 1.8 mg into the skin daily for 90 days 27 mL 3 04/14/2016 03/01/2017 documented in this encounter Miscellaneous Notes * Telephone Encounter - April Tenorio, RN - 02/04/2017 1407 EDT Medication refill documented in this encounter Plan of Treatment Upcoming Encounters Date Type Department Care Team (Late st Contact Info) Description 05/17/2024 13:00 EDT Office Visit [facility] Endocrinology [address] [address] Twyla Mcclellan NP [address] [place] [phone] 08/30/2024 14:00 EST Office Visit [address] [address] Twyla Mcclellan NP [address] [place] [phone] documented as of this encounter Visit Diagnoses Diagnosis Acquired hypothyroidism- Primary Unspecified hypothyroidism documented in this encounter Discontinued Medications Medication Sig Discontinue Reason Start Date End Da te liraglutide (VICTOZA 3-NIKA) 0.6 mg/0.1 mL (18 mg/3 mL) injectable penIndications:Hypothyro idism,Diabetes mellitus ([facility]) Inject 1.8 mg into the skin daily for 90 days Reorder 12/27/2014 04/14/2016 documented as of this encounter Care Teams Veneer Stock Layer Relationship Specialty Start Date End Date Edmar Temple MD [address] [place] [address] [address] [place] [phone] PCP - General 11/21/13 documented as of this encounter
--- OUTSIDE RECORDS SUMMARY | 2024-04-22 04:27 | XMS_ITS | Encounter Summary ---
Author Organization [facility] Address [address] [place] [address] Care Team Providers Care Lead Blender Name Role Phone Edmar Temple MD Primary Care Provider [phone] Reason for Visit * Reason Comments Other Encounter Details Date Type Department Care Team (Late st Contact Info) Description 07/10/2014 Refill [facility] Endocrinology - [facility] [address] [place] [address] Shanika Aquino NP [address] [facility] [address] [place] [address] Other Social History Tobacco Use [...] Dispensed Refills Start Date End Da te VICTOZA 3-NIKA 0.6 mg/0.1 mL (18 mg/3 mL) injectable pen INJECT 0.6 MG FOR 3 DAYS THEN INJECT 1.2 MG FOR 3 DAYS THEN INJECT 1.8 MG DAILY 9 Syringe 3 07/10/2014 11/07/2014 documented in this encounter Plan of Treatment Upcoming Encounters Date Type Department Care Team (Late st Contact Info) Description 05/17/2024 13:00 EDT Office Visit [facility] Endocrinology [address] [address] Twyla Mcclellan NP [address] [place] [phone] 08/30/2024 14:00 EST Office Visit [facility] Endocrinology [address] [address] Twyla Mcclellan NP [address] [place] [phone] documented as of this encounter Visit Diagnoses Not on filedocumented in this encounter Discontinued Medications Medication Sig Discontinue Reason Start Date End Da te liraglutide (VICTOZA) 0.6 mg/0.1 mL (18 mg/3 mL) injectable penIndications:Type II or unspecified type diabetes mellitus without mention of complication, uncontrolled 0.6 mg for 3 days and the 1.2 for and then 1.8. Reorder 03/29/2014 07/10/2014 documented as of this encounter Care Teams Lead Blender Relationship Specialty Start Date End Date Edmar Temple MD [address] [place] [address] [address] [place] [phone] PCP - General 11/21/13 documented as of this encounter
--- OUTSIDE RECORDS SUMMARY | 2024-04-22 04:27 | XMS_ITS | Encounter Summary ---
Author Organization [facility] Address [address] [place] [address] Care Team Providers Care Junior Business Analyst Name Role Phone Edmar Temple MD Primary Care Provider [phone] Reason for Visit * Reason Comments Other Encounter Details Date Type Department Care Team (Late st Contact Info) Description 12/11/2014 Refill [facility] Endocrinology - [facility] [address] [place] [address] Shanika Aquino NP 62 [facility] [address] [place] [address] Other Social History Tobacco Use [...] Da te blood glucose (FREESTYLE TEST) test stripsIndications:Hypoth yroidism,Diabetes mellitus ([facility]) Use 8-10 Strips as directed daily 900 Each 3 12/11/2014 12/11/2015 documented in this encounter Plan of Treatment Upcoming Encounters Date Type Department Care Team (Late st Contact Info) Description 05/17/2024 13:00 EDT Office Visit [facility] Endocrinology - [address] [address] Twyla Mcclellan NP [address] [place] [phone] 08/30/2024 14:00 EST Office Visit [facility] Endocrinology - [address] [address] Twyla Mcclellan NP [address] [place] [phone] documented as of this encounter Visit Diagnoses Diagnosis Hypothyroidism Unspecified hypothyroidism Diabetes mellitus ([facility]) Type II or unspecified type diabetes mellitus without mention of complication, not stated as uncontrolled documented in this encounter Discontinued Medications Medication Sig Discontinue Reason Start Date End Da te blood glucose (FREESTYLE TEST) test stripsIndications:Hypot hyroidism,Diabetes mellitus ([facility]) Use 8-10 Strips as directed daily Reorder 11/07/2014 12/11/2014 documented as of this encounter Care Teams Junior Business Analyst Relationship Specialty Start Date End Date Edmar Temple MD [address] [place] [address] [place] [phone] PCP - General 11/21/13 documented as of this encounter
--- OUTSIDE RECORDS SUMMARY | 2024-04-22 04:27 | XMS_ITS | Encounter Summary ---
Author Organization [facility] Address [address] [place] [address] Care Team Providers Care Administrative Asst Name Role Phone Edmar Temple MD Primary Care Provider [phone] Encounter Details Date Type Department Care Team (Late st Contact Info) Description 06/26/[address] [facility] Endocrinology - [facility] [address] [place] [address] Shanika Aquino NP [address] [facility] [address] [place] [address] Diabetes mellitus without complication ([facility]) (Primary Dx) Social History Tobacco Use Types [...] Info) Description 05/17/2024 13:[address] [facility] Endocrinology - [facility] [address] [place] [address] Twyla Mcclellan NP [address] [facility] [address] [place] [phone] 08/30/2024 14:[address] [facility] Endocrinology - [address] [address] Twyla Mcclellan NP [address] [phone] documented as of this encounter Results * (ABNORMAL) POCT HEMOGLOBIN A1C (12/18/2016 13:42 EDT) Hemoglobin A1C, POC Interfaced 8.7(H) <5.7 % 12/18/2016 13:50 EDT [facility] truck striker ID [id number] 12/18/2016 13:50 EDT [facility] Comment:Test performed at En docrinology Blood specimen (specimen) BLOOD SPECIMEN / Unknown 12/18/2016 13:42 EDT 12/18/2016 13:50 EDT Shanika Aquino NP POINT OF CARE TEST ORDERABLES [facility] [address] [place] [address] documented in this encounter Visit Diagnoses Diagnosis Diabetes mellitus without complication ([facility])- Primary Type II or unspecified type diabetes mellitus without mention of complication, not stated as uncontrolled documented in this encounter Care Teams Administrative Asst Relationship Specialty Start Date End Date Edmar Temple MD [address] [place] [address] PCP - General 11/21/13 documented as of this encounter
--- OUTSIDE RECORDS SUMMARY | 2024-04-22 04:27 | XMS_ITS | Encounter Summary ---
Author Organization [facility] Address [address] [place] [address] Care Team Providers Care Flour Blender Helper Name Role Phone Edmar Temple MD Primary Care Provider [phone] Reason for Visit * Reason Comments Diabetes Encounter Details Date Type Department Care Team (Latest Contact Info) Description 11/07/2014 9:40 EST Office Visit [facility] Endocrinology - [facility] [address] [place] [address] Shanika Aquino NP 62 [facility] [address] [place] [address] Dyslipidemia (Primary Dx); Hypothyroidism; Diabetes mellitus (CMS-HCC) ([facility]-CMS) Social History Tobacco Use Types Packs/Day Years [...] Sign Reading Time Taken Comments Blood Pressure 154/102 11/07/2014 0848 EST Pulse 72 11/07/2014 0848 EST Temperature - - Respiratory Rate - - Oxygen Saturation - - Inhaled Oxygen Concentration - - Weight 113.9 kg (251 lb) 11/07/2014 0848 EST Height 169.2 cm (5' 6.61) 11/07/2014 0848 EST Body Mass Index 39.77 11/07/2014 0848 EST documented in this encounter Functional Status Cognitive Status Response Date of Assessm ent Because of a physical, menta l, or emotional condition, do you have serious difficulty concentrating, remembering, or making decisions? (5 years old or older) Yes 04/15/2011 documented as of this encounter Discharge Diagnoses Diagnosis 272.4 HYPERLIPIDEMIA NEC/NOS[ICD-9-CM] 244.9 HYPOTHYROIDISM NOS[ICD-9-CM] 250.00 DIABETES UNCOMPL ADULT-TYPE II[ICD-9-CM] documented in this encounter Patient Instructions * Patient Instructions* Shanika Aquino ANP - 11/07/2014 9:11 EST Change breakfast and dinner ratio from 20:1 to 15:1. (Breakfast 6 AM till 10 AM), Continue 20:1 at lunch, (dinner 5 PM till 8 PM) then resume 20:1 till MN Consider taking some Lantus daily to decrease pump basal insulin demands. Tsh, lipid panel, LFT's BMP and urine microalbumin ordered documented in this encounter Ordered Prescriptions Prescription Sig Dispensed Refills Start Date End Da te levothyroxine (SYNTHROID) 25 mcg tabletIndications:Hypoth yroidism,Diabetes mellitus ([facility]) Take 1 Tab by mouth daily 90 Tab 3 11/07/2014 09/07/2022 insulin glargine (LANTUS SOLOSTAR) 100 unit/mL (3 mL) injection penIndications:Hypothyro idism,Diabetes mellitus ([facility]) Inject 70 Units into the skin at bedtime Pump back up hold to file 1 Box 3 11/07/2014 12/18/2016 insulin aspart (NOVOLOG) 100 unit/mL injectionIndications:Maya betes mellitus ([facility]),Hypothyroidism Inject 200 Units into the skin daily Omnipod insulin pump 180 mL 3 11/07/2014 04/25/2015 blood glucose (FREESTYLE TEST) test stripsIndications:Hypoth yroidism,Diabetes mellitus ([facility]) Use 8-10 Strips as directed daily 900 Each 3 11/07/2014 12/11/2014 liraglutide (VICTOZA 3-NIKA) 0.6 mg/0.1 mL (18 mg/3 mL) injectable penIndications:Hypothyro idism,Diabetes mellitus (HCC-CMS) Inject 1.8 mg into the skin daily for 90 days 9 Syringe 3 11/07/2014 12/27/2014 metFORMIN (GLUCOPHAGE) 1,000 mg tabletIndications:Hypoth yroidism,Diabetes mellitus (HCC-CMS) Take 1 Tab by mouth 2 times daily 180 Tab 3 11/07/2014 12/25/2014 documented in this encounter Progress Notes * Shanika Aquino ANP - 11/07/2014 0903 EST [facility] Diabetes Follow-Up Note CHIEF COMPLAINT: Kymberly Stewart presents in clinic today with: No diagnosis found. Diabetes PROGRESS/FOLLOWUP NOTE - 07/10/2014 PROBLEM: Hypothyroidism, hypertension, sleep apnea, status post gastric bypass, type 2 diabetes controlled on pump therapy, asthma, dyslipidemia. ALLERGIES: She has no known drug allergies. SUBJECTIVE: Kymberly is a 39-year-old woman with type 2 diabetes managed on an insulin pump. Seen in follow-up for medication adjustment and complication surveillance. She had gastric bypass surgery in July of 2009. Her highest weight was 320 and a loss of 61 pounds. She also take Victoza whichhas helped her loose wt and cut down insulin use. Hemoglobin A1c las visit was 6.8%, and today is down to 6.8%. Her wt is neutral. She has an URI as well. No GI complaints from the medication change. She takes metformin, luraglutide and continues on insulin pump therapy. She uses an Omnipod insulinpump . She has titrated on her basals, which are as follows: Midnight is 1.6, 6:00 a.m. is 2.0, 10 AM 2.8 1:30 PM 3.2 and 7 PM 2.4 units Carb to insulin ratio is 20:1. Sensitivity is 20:1. She uses the extended bolus with meals 50% over 2 hours and the temp basal feature with exercise 50% decrease f or 1-2 hours or suspends. She denies chest [...] She eats mostly protein and some fat. FBS most in target Noon, 140-190.68-384. Scattered HS - 157 to low 200s . Readings Her first was with her son delivered [...] b-12), ferrous fumarate, insulin aspart, insulin glargine, insulin pen needles 31g x /16, levothyroxine, metformin, multivitamin, victoza 3-nika, vitamin b complex, and vitamin e. The patient has experienced the following acute complications: hypoglycemia - mild-moderate and hyperglycemia - mild-moderate. History Substance Use Topics ??? Smoking status: Former Smoker Quit date: 09/26/2003 ??? Smokeless tobacco: Not on file ??? Alcohol Use: Yes Comment: social does not tolerate well since bariatric surgery PHYSICAL EXAMINATION: Vitals: BP 154/102 Pulse 72 Ht 169.2 cm (66.61) Wt 113.853 kg (251 lb) BMI 39.77 kg/m2 LMP 10/24/2014 BMI: Body mass index is 39.77 kg/(m^2). On physical exam well developed morbidly obese woman in no acute distress. Heart and lung sound unremarkable with no carotid bruit. Neck supple without thyromegaly. No leg edema. LABS: Last done 12/25/16 at [facility]. Lab Results Component Value Date HGBA1C 6.8* 07/10/2014 ASSESSMENT/PLAN: Slip in glycemic control, partly because has been sick and is gotten [place] and a carb counting. Excellent response to luraglutide, losing weight, and , has maintain weight loss. I think she is a stronger bolus, breakfast and dinner. No change in weightimproving glycemic control. . On a statin now. Lipid management deferred to PCP Hypertensive today, but best friend undergoing a biopsy today. Not on an BLADE or ARB. micoalbumin unremarkable -but due in December Hypothyroidism - on Levothyroxin - 12/25 TSH unremarkable No diagnosis found. Our office will provide ongoing management of this patients' diabetes with a hemoglobin A1C goal ofless than 7. We have instructed the patient to call us with blood sugar values. I would like you tocontinue to manage their blood pressure, lipids and other preventive care. Referred to diabetic education program. No Referred to practical nursing faculty no Patient referred to eye healthcare manager for annual dilated eye exam. Up to date Lifestyle modifications: recommend losing weight Patient does demonstrate knowledge of diabetes and expectations. Patient does understand medication regimen. Barriers to adherence: Financial and Emotional. PLAN: Change breakfast and dinner ratio from 20:1 to 15:1. (Breakfast 6 AM till 10 AM), Continue 20:1 at lunch, (dinner 5 PM till 8 PM) then resume 20:1 till MN Consider taking some Lantus daily to decrease pump basal insulin demands. Tsh, lipid panel, LFT's BMP and urine microalbumin ordered to be done at [facility]. Goals and plan to achieve these discussed. Systolic blood pressure less than 140. And diastolic blood pressure less than 80. Hemoglobin A1C less than 7%. LDL cholesterol: 70 to 99. HDL males >40 and females >50 mgm/dl Triglycerides fasting <150 mgm/dl JETT Yoon 11/07/2014 9:03 I spent a total of 25 minutes in face to face time with this patient, and 15 minutes of that time was spent in counseling and coordination of care as described in This progress note * Ania Sotelo - 11/07/2014 0849 EST Fingerstick blood sample obtained for POCT Hemoglobin A1C performed for this DOS at the order of JETT Herbert. documented in this encounter Plan of Treatment Upcoming Encounters Date Type Department Care Team (Late st Contact Info) Description 05/17/2024 13:00 EDT Office Visit [facility] Endocrinology - [address] [address] Twyla Mcclellan NP [address] [place] [address] [place] [phone] 08/30/2024 14:00 EST Office Visit [facility] Endocrinology - [address] [address] Twyla Mcclellan NP [address] [place] [phone] documented as of this encounter Procedures Procedure Name Priority Date/Time Associated Diagnosis Comments POCT HEMOGLOBIN A1C Routine 11/07/2014 9 :10 EST Hypothyroidism Diabetes mellitus ([facility]) ([facility]) documented in this encounter Results * (ABNORMAL) POCT HEMOGLOBIN A1C (11/07/2014 9:10 EST) Hemoglobin A1c, POC 8.0(A) 5.7 POINT OF CARE 11/07/2014 9:10 EST Shanika Aquino NP POINT OF CARE TEST ORDERABLES POINT OF CARE documented in this encounter Visit Diagnoses Diagnosis Dyslipidemia- Primary Other and unspecified hyperlipidemia Hypothyroidism Unspecified hypothyroidism Diabetes mellitus ([facility]) Type II or unspecified type diabetes mellitus without mention of complication, not stated as uncontrolled documented in this encounter Discontinued Medications Medication Sig Discontinue Reason Start Date End Da te metFORMIN (GLUCOPHAGE) 1,000 mg tabletIndications:Hypot hyroidism,Diabetes mellitus ([facility]) Take 1 Tab by mouth 2 times daily. Reorder 11/22/2013 11/07/2014 VICTOZA 3-NIKA 0.6 mg/0.1 mL (18 mg/3 mL) injectable pen INJECT 0.6 MG FOR 3 DAYS THEN INJECT 1.2 MG FOR 3 DAYS THEN INJECT 1.8 MG DAILY Reorder 07/10/2014 11/07/2014 blood glucose (FREESTYLE TEST) test strips Use 8-10 Strips as directed daily. Reorder 01/23/2014 11/07/2014 insulin aspart (NOVOLOG) 100 unit/mL injectionIndications:Di abetes mellitus ([facility]) Inject 200 Units into the skin daily Omnipod insulin pump. Reorder 03/14/2014 11/07/2014 insulin glargine (LANTUS SOLOSTAR) 100 unit/mL (3 mL) injection pen Inject 70 Units into the skin at bedtime Pump back up hold to file. Reorder 11/22/2013 11/07/2014 levothyroxine (SYNTHROID) 25 mcg tabletIndications:Hypot hyroidism,Diabetes mellitus ([facility]) Take 1 Tab by mouth daily. Reorder 11/22/2013 11/07/2014 documented as of this encounter Care Teams Flour Blender Helper Relationship Specialty Start Date End Date Edmar Temple MD [address] [place] [address] [address] [place] [phone] PCP - General 11/21/13 documented as of this encounter
--- OUTSIDE RECORDS SUMMARY | 2024-04-22 04:27 | XMS_ITS | Encounter Summary ---
Author Organization [facility] Address [address] [place] [address] Care Team Providers Care Child Care Director Name Role Phone Edmar Temple MD Primary Care Provider [phone] Reason for Visit * Reason Comments Other Encounter Details Date Type Department Care Team (Late st Contact Info) Description 11/28/2015 Refill [facility] Endocrinology - [facility] [address] [place] [address] Shanika Aquino NP 62 [facility] [address] [place] [address] Other Social History Tobacco Use [...] No 10/24/2015 documented as of this encounter Ordered Prescriptions Prescription Sig Dispensed Refills Start Date End Da te metFORMIN (GLUCOPHAGE) 1,000 mg tablet TAKE 1 TABLET TWICE A DAY 180 Tab 3 11/29/2015 11/22/2016 documented in this encounter Plan of Treatment Upcoming Encounters Date Type Department Care Team (Late st Contact Info) Description 05/17/2024 13:00 EDT Office Visit [facility] Endocrinology [address] [id number] Twyla Mcclellan NP [address] [place] [phone] 08/30/2024 14:00 EST Office Visit [address] [address] Twyla Mcclellan NP [address] [place] [phone] documented as of this encounter Visit Diagnoses Not on filedocumented in this encounter Discontinued Medications Medication Sig Discontinue Reason Start Date End Da te metFORMIN (GLUCOPHAGE) 1,000 mg tabletIndications:Hypothy roidism,Diabetes mellitus (HCC-CMS) Take 1 Tab by mouth 2 times daily Reorder 12/27/2014 11/28/2015 documented as of this encounter Care Teams Child Care Director Relationship Specialty Start Date End Date Edmar Temple MD [address] [place] [address] [place] [phone] PCP - General 11/21/13 documented as of this encounter
--- OUTSIDE RECORDS SUMMARY | 2024-04-22 04:27 | XMS_ITS | Encounter Summary ---
Author Organization [facility] Address [address] [place] [address] Care Team Providers Care Safety Fire Boss Name Role Phone Edmar Temple MD Primary Care Provider Reason for Visit * Reason Comments Diabetes Encounter Details Date Type Department Care Team (Latest Contact Info) Description 07/31/2016 10:20 EST Office Visit [facility] Endocrinology - [facility] [address] [place] [address] Shanika Aquino NP 62 [facility] [address] [place] [address] Type 1 diabetes mellitus without complication ([facility]) (Primary Dx) Social History Tobacco Use Types [...] Sign Reading Time Taken Comments Blood Pressure 131/67 07/31/2016 1024 EST Pulse 71 07/31/2016 1024 EST Temperature - - Respiratory Rate - - Oxygen Saturation - - Inhaled Oxygen Concentration - - Weight 112.5 kg (248 lb) 07/31/2016 1024 EST Height 170.2 cm (5' 7.01) 07/31/2016 1024 EST Body Mass Index 38.83 07/31/2016 1024 EST documented in this encounter Functional Status [...] No 02/28/2016 documented as of this encounter Patient Instructions * Patient Instructions* Shanika Aquino ANP - 07/31/2016 10:20 EST PLAN: Continue current pump settings. Check BS more jon dinner and bed Follow-up in 4 months Check Blood Sugar:Before meals and before bedtime. Goals and plan to achieve these discussed. Systolic blood pressure less than 140. And diastolic blood pressure less than 80. Hemoglobin A1C less than 7%. LDL cholesterol: 70 to 99. HDL males >40 and females >50 mgm/dl Triglycerides fasting <150 mgm/dl documented in this encounter Progress Notes * Aron Payton - 07/31/2016 1020 EST Fingerstick blood sample obtained for POCT Hemoglobin A1C performed for this DOS at the order of JETT Yoon * Shanika Aquino ANP - 07/31/2016 1020 EST [facility] Diabetes Follow-Up Note CHIEF COMPLAINT: Linda Stewart presents in clinic today with: 1. Type 1 diabetes mellitus without complication Diabetes PROBLEM: Hypothyroidism, hypertension, sleep apnea, status post gastric bypass, type 2 diabetes controlled on pump therapy, asthma, dyslipidemia. ALLERGIES: She has no known drug allergies. SUBJECTIVE: Linda is a 41-year-old woman with type 2 diabetes managed on an insulin pump. Seen in follow-up for medication adjustment and complication surveillance. She had gastric bypass surgery in July of 2009. Her highest weight was 320 and and lost 61 pounds, - she has lost another 4 pounds (12 since September). She no longer snacks between lunch and dinner. Results for LINDA STEWART ( ) as of 07/31/2016 10:44 Ref. Range 11/07/2014 09:10 04/25/2015 10:40 10/24/2015 15:41 02/28/2016 14:57 07/31/2016 10:19 Hemoglobin A1c, POC Latest Ref Range: 5.7 % 8.0 (A) 8.3 (A) 8.1 (A) 7.6 (A) Hemoglobin A1C Latest Ref Range: <5.7 % 8.3 (H) She takes luraglutide, which is helping her cut down her insulin and lose weight, plus metformin and insulin pump therapy. She wears an Omnipod insulin pump. No problems with her pump, but is getting a rash under POD. Advised to call company to discuss skin barriers. Her current settings are: Basal rate :MN 2.0, 6:00 -2.5, 10 4.0 , 19:00 2.4 units Carb to insulin ratio is 15:1. Sensitivity is 15:1 for BS>100. Active insulin time 3.0 She uses the extended bolus with meals 50% over 2 hours, and the temp basal feature with exercise 50% decrease for 1-2 hours or suspends. Pump download shows 19 blood sugars in last 2 weeks. averaging 162, doing about 1/day range 64-305.All but 2 before lunch. She says she gets busy and forgets to test ROS: She denies chest pain, shortness of breath, numbness, tingling, calf pain, no polyuria, polydipsia, polyphagia. No blurred vision and her eye exams are up to date. No hot or cold intolerance, hair or skin changes, constipation, feeling of a lump in her throat, tremors, stomach cramping. She detects her hypoglycemia appropriately around in 70's, but that has not been a major problem. About 1/m onth at PM. PMH: Her first delivered 03/2005 [...] list which includes the following prescription(s): acetaminophen, calcium carbonate/vitamin d3, cholecalciferol (vitamin d3), citalopram, cyanocobalamin (vitamin b-12), ferrous fumarate, insulin glargine, insulin lispro, levothyroxine, liraglutide, metformin, multivitamin, vitamin b complex, and vitamin e. The patient has experienced the following acute complications: hypoglycemia - mild-moderate and hyperglycemia - mild-moderate. Social History Substance Use Topics ??? Smoking status: Former Smoker Quit date: 09/26/2003 ??? Smokeless tobacco: Not on file ??? Alcohol use Yes Comment: social does not tolerate well since bariatric surgery PHYSICAL EXAMINATION: Vitals: Visit Vitals ??? BP 131/67 ??? Pulse 71 ??? Ht 170.2 cm (67.01) ??? Wt (!) 112.5 kg (248 lb) ??? BMI 38.83 kg/m2 BMI: Body mass index is 38.83 kg/(m^2). On physical exam well developed morbidly obese woman in no acute distress. Heart and lung sound unremarkable with no carotid bruit. Neck supple without thyromegaly. No leg edema. LABS: Last done 04/18/2015 at [facility]. CMP, TSH and lipid panel unremarkable No urine microalbumin found. ASSESSMENT/PLAN: Glycemic control has slipped. Has lost wt. Excellent response to luraglutide. Needs to check blood sugars more for pump adjustments Not on a statin Lipid management deferred to PCP Blood pressure in target today. Not on an BLADE or ARB. micoalbumin unremarkable - Hypothyroidism - on Levothyroxin - TSH unremarkable , clinically euthyroid 1. Type 1 diabetes mellitus without complication Referred to diabetic education program. No Referred to human resource analyst no Patient referred to eye resident care manager for annual dilated eye exam. Up to date Lifestyle modifications: recommend losing weight Patient does demonstrate knowledge of diabetes and expectations. Patient does understand medication regimen. Barriers to adherence: Financial and Emotional. PLAN: Recommend labs per PCP if none recent BMP, lipids , tsh, microalbumin, LFT's Continue current pump settings. Check BS more jon dinner and bed Follow-up in 4 months Goals and plan to achieve these discussed. Systolic blood pressure less than 140. And diastolic blood pressure less than 80. Hemoglobin A1C less than 7%. LDL cholesterol: 70 to 99. HDL males >40 and females >50 mgm/dl Triglycerides fasting <150 mgm/dl JETT Yoon 07/31/2016 10:44 I spent a total of 25 minutes [...] Visit [facility] Endocrinology [address] [address] Twyla Mcclellan NP [address] [place] [phone] 08/30/2024 14:00 EST Office Visit [address] [address] Twyla Mcclellan NP [address] [place] [phone] documented as of this encounter Procedures Procedure Name Priority Date/Time Associated Diagnosis Comments POCT HEMOGLOBIN A1C, INTERFACED Routine 07/31/2016 10:19 EST Type 1 diabetes mellitus without complication ([facility]) documented in this encounter Results * (ABNORMAL) POCT HEMOGLOBIN A1C (07/31/2016 10:19 EST) Hemoglobin A1C, POC Interfaced 8.3(H) <5.7 % 07/31/2016 10:42 EST [facility] can intake worker ID [id number] 07/31/2016 10:42 EST [facility] Comment:Test performed at En docrinology Blood specimen (specimen) BLOOD SPECIMEN / Unknown 07/31/2016 10:19 EST 07/31/2016 10:42 EST Shanika Aquino SPIRITUAL MINISTER POINT OF CARE TEST ORDERABLES [facility] [address] [place] [address] documented in this encounter Visit Diagnoses Diagnosis Type 1 diabetes mellitus without complication ([facility])- Primary Type I (juvenile type) diabetes mellitus without mention of complication, not stated as uncontrolled documented in this encounter Care Teams Safety Fire Boss Relationship Specialty Start Date End Date Edmar Temple MD [facility] [employer] [address] [place] [phone] PCP - General 11/21/13 documented as of this encounter
--- OUTSIDE RECORDS SUMMARY | 2024-04-22 04:27 | XMS_ITS | Encounter Summary ---
Author Organization [facility] Address [address] [place] [address] Care Team Providers Care Javascript Developer Name Role Phone Edmar Temple MD Primary Care Provider [phone] Reason for Visit * Reason Onset Date Comments DME 01/20/2019 Encounter Details Date Type Department Care Team (Late st Contact Info) Description 01/20/2019 Telephone [facility] - [facility] [address] [place] [address] Shanika Aquino NP 62 [facility] [address] [place] [address] DME Social History Tobacco Use [...] Telephone Encounter - Ania Sotelo - 01/20/2019 1041 EDT Electronically faxed [facility] latest progress note to [phone] documented in this encounter Plan of Treatment Upcoming Encounters Date Type Department Care Team (Late st Contact Info) Description 05/17/2024 13:00 EDT [facility] - [address] [address] Twyla Mcclellan NP [address] [place] [phone] 08/30/2024 14:00 EST Office Visit [address] [address] Twyla Mcclellan NP [address] [place] [phone] documented as of this encounter Visit Diagnoses Not on filedocumented in this encounter Care Teams Javascript Developer Relationship Specialty Start Date End Date Edmar Temple MD [address] [place] [address] 3 [place] [address] PCP - General 11/21/13 documented as of this encounter
--- OUTSIDE RECORDS SUMMARY | 2024-04-22 04:27 | XMS_ITS | Encounter Summary ---
Author Organization [facility] Address [address] [place] [address] Care Team Providers Care Trust Officer Name Role Phone Edmar Temple MD Primary Care Provider [phone] Encounter Details Date Type Department Care Team (Late st Contact Info) Description 01/25/2019 Orders Only [facility] Endocrinology - [facility] [address] [place] [address] Shanika Aquino NP 62 [facility] [address] [place] [address] Social History Tobacco Use Types Packs/Day Years [...] Pt has discount coupon 6 Syringe 3 01/25/2019 03/08/2019 semaglutide 0.25 mg or 0.5 mg(2 mg/1.5 mL) pen injector Inject 0.25-0.5 mg into the skin once a week. 0.25 mg weekly for 2 weeks and if tolerated increase to 0.5 mg 2 Syringe 01/25/2019 07/12/2019 documented in this encounter Plan of Treatment Upcoming Encounters Date Type Department Care Team (Late st Contact Info) Description 05/17/2024 13:00 EDT Office Visit [facility] Endocrinology - [address] [address] Twyla Mcclellan NP [address] [place] [address] 08/30/2024 14:00 EST Office Visit [address] [address] Twyla Mcclellan NP [address] [place] [phone] documented as of this encounter Visit Diagnoses Not on filedocumented in this encounter Care Teams Trust Officer Relationship Specialty Start Date End Date Edmar Temple MD [facility] PROFESSIONAL [employer] [facility] 3 [place] [phone] PCP - General 11/21/13 documented as of this encounter
--- OUTSIDE RECORDS SUMMARY | 2024-04-22 04:27 | XMS_ITS | Encounter Summary ---
Author Organization [facility] Address [address] [place] [address] Care Team Providers Care Concrete Finisher Name Role Phone Edmar Temlpe MD Primary Care Provider [phone] Reason for Visit * Reason Comments Other Encounter Details Date Type Department Care Team (Late st Contact Info) Description 10/28/2018 Refill [facility] Endocrinology - [facility] [address] [place] [address] Shanika Aquino NP 62 [facility] [address] [place] [address] Other Social History Tobacco Use [...] test stripsIndications:Type 2 diabetes mellitus with hyperglycemia ([facility]) Freestyle test strips ,Use 4-5 times daily , E11.9, insulin dependent 450 Each 2 10/28/2018 01/31/2019 documented in this encounter Plan of Treatment Upcoming Encounters Date Type Department Care Team (Late st Contact Info) Description 05/17/2024 13:00 EDT Office Visit [facility] Endocrinology - [address] [address] Twyla Mcclellan NP [address] [place] [phone] 08/30/2024 14:00 EST Office Visit [address] [address] Twyla Mcclellan NP [address] [place] [phone] documented as of this encounter Visit Diagnoses Diagnosis Type 2 diabetes mellitus with hyperglycemia ([facility])- Primary Type II or unspecified type diabetes mellitus without mention of complication, not stated as uncontrolled documented in this encounter Discontinued Medications Medication Sig Discontinue Reason Start Date End Da te blood glucose (FREESTYLE TEST) test stripsIndications:Type 2 diabetes mellitus with hyperglycemia, 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
--- OUTSIDE RECORDS SUMMARY | 2024-04-22 04:27 | XMS_ITS | Encounter Summary ---
Author Organization [facility] Address [address] [place] [address] Care Team Providers Care Deer Farmer Name Role Phone Edmar Temple MD Primary Care Provider [phone] Reason for Visit * Reason Onset Date Comments Medication Adherence 02/07/2019 Prior Auth, Medication 02/07/2019 Encounter Details Date Type Department Care Team (Late st Contact Info) Description 02/07/2019 Telephone [facility] Endocrinology - [facility] [address] [place] [address] Shanika Aquino NP 62 [facility] [address] [place] [address] Medication Adherence; Prior Auth, Medication Social History Tobacco Use Types Packs/Day Years [...] Telephone Encounter - Lynda Smith - 02/08/2019 1108 EDT Per [facility], FreeStyle Test Strips are approved from 01/09/19-02/07/22. Ref# [id number]. Notified the patient. * Telephone Encounter - Winston Urbina - 02/07/2019 1424 EDT Zoila called state freestyle strips are not covered unless they have an insulin pump in which it would then need a PA. State they are recommending the One touch Vario strips, state with this they would get a free meter. Please advise documented in this encounter Plan of Treatment Upcoming Encounters Date Type Department Care Team (Late st Contact Info) Description 05/17/2024 13:00 EDT Office Visit [facility] Endocrinology - [address] [phone] Twyla Mcclellan NP [address] [place] [phone] 08/30/2024 14:00 EST Office Visit [address] [phone] Twyla Mcclellan NP [address] [place] [phone] documented as of this encounter Visit Diagnoses Not on filedocumented in this encounter Care Teams Deer Farmer Relationship Specialty Start Date End Date Edmar Temple MD [address] [place] [address] 3 [place] [address] PCP - General 11/21/13 documented as of this encounter
--- OUTSIDE RECORDS SUMMARY | 2024-04-22 04:27 | XMS_ITS | Encounter Summary ---
Author Organization [facility] Address [address] [place] [address] Care Team Providers Care Project Finance Analyst Name Role Phone Edmar Temple MD Primary Care Provider [phone] Reason for Visit * Reason Onset Date Comments Medications Refill 03/30/2016 Victoza Medications Refill 03/11/2016 Encounter Details Date Type Department Care Team (Late st Contact Info) Description 03/11/2016 Refill [facility] - [facility] [address] [place] [address] Shanika Aquino NP 62 [facility] [address] [place] [address] Medications Refill (Victoza); Medications Refill Social History Tobacco Use Types [...] Start Date End Da te insulin lispro (HUMALOG) 100 unit/mL vial 200 units inject to skin daily through Omipod insulin pump 180 mL 2 03/13/2016 09/08/2016 documented in this encounter Miscellaneous Notes * Telephone Encounter - April Knapp - 03/30/2016 1620 EDT Reason for Call: Medications Refill Summary/Symptoms: Patient states [facility] never received refill request for Victoza requested by patient on 03/11. Please send. Patient out of med. April Knapp 03/30/2016 16:20 * Telephone Encounter - Nora Sharma RN - 03/13/2016 0914 EDT Kymberly requesting refill on her novolog insulin for her insulin pump. While ordering found that Humalog is now formulary. Call and left message if this change has been approved by the patient . Kymberly called back. She agreed with change of Humalog for insulin pump. Will make that change andphone to pharmacy * Telephone Encounter - Josh Bales - 03/11/2016 1631 EDT Unable to reorder Victoza through medication list, not listed. 2 Medication(s) Requested: liraglutide (VICTOZA 3-NIKA) 0.6 mg/0.1 mL (18 mg/3 mL) injectable pen, 3 month with refills, disp-27 pens novolog 100 unit/mL injection, 3 month with refills Pharmacy: [facility] Last Refill Date: Victoza: 03/27/15, novolo04/25/15 Last Visit Date: 02/28/16 Next Visit Date: 07/01/2016 Is patient out of medication? no, pt has enough for 48 hours. documented in this encounter Plan of Treatment Upcoming Encounters Date Type Department Care Team (Late st Contact Info) Description 05/17/2024 13:00 EDT [facility] - [address] [address] Twyla Mcclellan NP [address] [phone] 08/30/2024 14:00 EST [facility] - [address] [address] Twyla Mcclellan NP [address] [place] [phone] documented as of this encounter Visit Diagnoses Not on filedocumented in this encounter Discontinued Medications Medication Sig Discontinue Reason Start Date End Da te insulin aspart (NOVOLOG) 100 unit/mL injection Inject 200 Units into the skin daily Omnipod insulin pump Formulary change 04/25/2015 03/13/2016 documented as of this encounter Care Teams Project Finance Analyst Relationship Specialty Start Date End Date Edmar Temple MD [address] [place] [address] [place] [phone] PCP - General 11/21/13 documented as of this encounter
--- OUTSIDE RECORDS SUMMARY | 2024-04-22 04:27 | XMS_ITS | Encounter Summary ---
Author Organization [facility] Address [address] [place] [address] Care Team Providers Care Academic Support Coordinator Name Role Phone Edmar Temple MD Primary Care Provider [phone] Reason for Visit * Reason Onset Date Comments DME 01/02/2019 Encounter Details Date Type Department Care Team (Late st Contact Info) Description 01/02/2019 Telephone [facility] Endocrinology - [facility] [address] [place] [address] Shanika Aquino NP 62 [facility] [address] [place] [address] DME Social History Tobacco Use [...] encounter Miscellaneous Notes * Telephone Encounter - Emma Clements - 01/02/2019 1413 EDT Dexcom- Electronically sent charting notes and A1c on 01.02.19. documented in this encounter Plan of Treatment Upcoming Encounters Date Type Department Care Team (Late st Contact Info) Description 05/17/2024 13:00 EDT Office Visit [facility] Endocrinology - [address] [address] Twyla Mcclellan NP [address] [place] [phone] 08/30/2024 14:00 EST Office Visit [facility] Endocrinology [address] [address] Twyla Mcclellan NP [address] [place] [phone] documented as of this encounter Visit Diagnoses Not on filedocumented in this encounter Care Teams Academic Support Coordinator Relationship Specialty Start Date End Date Edmar Temple MD [address] [place] [address] 3 [place] [address] PCP - General 11/21/13 documented as of this encounter
--- OUTSIDE RECORDS SUMMARY | 2024-04-22 04:27 | XMS_ITS | Encounter Summary ---
Author Organization [facility] Address [address] [place] [address] Care Team Providers Care Quarter Seamer Name Role Phone Edmar Temple MD Primary Care Provider [phone] Reason for Visit * Reason Onset Date Comments Medications Refill 12/25/2014 Encounter Details Date Type Department Care Team (Late st Contact Info) Description 12/25/2014 Refill [facility] Endocrinology [address] [phone] Shanika Aquino NP [address] [place] [address] [address] [place] [address] Medications Refill Social History Tobacco [...] Yes 04/15/2011 documented as of this encounter Plan of Treatment Upcoming Encounters Date Type Department Care Team (Late st Contact Info) Description 05/17/2024 13:00 EDT Office Visit [address] [phone] Twyla Mcclellan NP 62 [facility] [address] [place] [address] 08/30/2024 14:00 EST Office Visit [facility] Endocrinology - [facility] [address] [place] [address] Twyla Mcclellan NP [address] [phone] documented as of this encounter Visit Diagnoses Not on filedocumented in this encounter Care Teams Quarter Seamer Relationship Specialty Start Date End Date Edmar Temple MD [address] [place] [address] [address] [place] [address] PCP - General 11/21/13 documented as of this encounter
--- OUTSIDE RECORDS SUMMARY | 2024-04-22 04:27 | XMS_ITS | Encounter Summary ---
Author Organization [facility] Address [address] [place] [address] Care Team Providers Care Industrial Refrigeration Mechanic Name Role Phone Edmar Temple MD Primary Care Provider [phone] Reason for Visit * Reason Onset Date Comments DME 12/23/2018 Encounter Details Date Type Department Care Team (Late st Contact Info) Description 12/23/2018 Telephone [facility] Endocrinology - [facility] [address] [place] [address] Shanika Aquino NP 62 [facility] [address] [place] [address] DME Social History Tobacco Use [...] * Telephone Encounter - Ania Sotelo - 12/23/2018 0610 EDT Electronically faxed latest progress note and a1c report to [facility] at [phone] on 12/23/18. documented in this encounter Plan of Treatment Upcoming Encounters Date Type Department Care Team (Late st Contact Info) Description 05/17/2024 13:00 EDT Office Visit [facility] Endocrinology - [address] [phone] Twyla Mcclellan NP [address] [place] [phone] 08/30/2024 14:00 EST Office Visit [facility] Endocrinology [address] [address] Twyla Mcclellan NP [address] [place] [phone] documented as of this encounter Visit Diagnoses Not on filedocumented in this encounter Care Teams Industrial Refrigeration Mechanic Relationship Specialty Start Date End Date Edmar Temple MD [address] [place] [phone] PCP - General 11/21/13 documented as of this encounter
--- OUTSIDE RECORDS SUMMARY | 2024-04-22 04:27 | XMS_ITS | Encounter Summary ---
Author Organization [facility] Address [address] [place] [address] Care Team Providers Care Mounting Machine Operator Name Role Phone Edmar Temple MD Primary Care Provider [phone] Reason for Visit * Reason Onset Date Comments Labs Only 01/10/2019 Encounter Details Date Type Department Care Team (Late st Contact Info) Description 01/10/2019 Telephone [facility] Endocrinology - [address] [phone] Jeffrey De La Rosa, RN Labs Only Social History Tobacco Use Types Packs/Day Years [...] - Jeffrey De La Rosa RN - 01/10/2019 1110 EDT Contacted pt. No recent labs drawn. Pt requesting lab orders be faxed to to be drawn. Routing message to provider to order labs and will fax to [facility] lab to be drawn. documented in this encounter Plan of Treatment Upcoming Encounters Date Type Department Care Team (Late st Contact Info) Description 05/17/2024 13:00 EDT Office Visit [facility] Endocrinology - [address] [address] Twyla Mcclellan NP [address] [place] [phone] 08/30/2024 14:00 EST Office Visit [address] [phone] Twyla Mcclellan NP [address] [place] [phone] documented as of this encounter Visit Diagnoses Not on filedocumented in this encounter Care Teams Mounting Machine Operator Relationship Specialty Start Date End Date Edmar Temple MD [address] [place] [address] 3 [place] [address] PCP - General 11/21/13 documented as of this encounter
--- OUTSIDE RECORDS SUMMARY | 2024-04-22 04:27 | XMS_ITS | Encounter Summary ---
Author Organization [facility] Address [address] [place] [address] Care Team Providers Care Rn Long Term Care Name Role Phone Edmar Temple MD Primary Care Provider [phone] Reason for Visit * Reason Comments Other Encounter Details Date Type Department Care Team (Late st Contact Info) Description 03/01/2017 Refill [facility] Endocrinology - [facility] [address] [place] [address] Shanika Aquino NP 62 [facility] [address] [place] [address] Other Social History Tobacco Use [...] visiting a doctor's office or shopping? No 12/18/2016 Cognitive Status Response Date of Assessm ent Because of a physical, menta l, or emotional condition, does this person have serious difficulty concentrating, remembering, or making decisions? No 12/18/2016 documented as of this encounter Ordered Prescriptions Prescription Sig Dispensed Refills Start Date End Da te VICTOZA 3-NIKA 0.6 mg/0.1 mL (18 mg/3 mL) injectable penIndications:Acquired hypothyroidism INJECT 1.8 MG INTO THE SKIN DAILY 27 mL 3 03/01/2017 10/19/2017 documented in this encounter Plan of Treatment Upcoming Encounters Date Type Department Care Team (Late st Contact Info) Description 05/17/2024 13:00 EDT Office Visit [address] [address] Twyla Mcclellan NP [address] [place] [phone] 08/30/2024 14:00 EST Office Visit [address] [address] Twyla Mcclellan NP [address] [place] [phone] documented as of this encounter Visit Diagnoses Diagnosis Acquired hypothyroidism Unspecified hypothyroidism documented in this encounter Discontinued Medications Medication Sig Discontinue Reason Start Date End Da te liraglutide (VICTOZA 3-NIKA) 0.6 mg/0.1 mL (18 mg/3 mL) injectable penIndications:Acquired hypothyroidism Inject 1.8 mg into the skin daily for 90 days Reorder 04/14/2016 03/01/2017 documented as of this encounter Care Teams Rn Long Term Care Relationship Specialty Start Date End Date Edmar Temple MD [address] [place] [phone] PCP - General 11/21/13 documented as of this encounter
--- OUTSIDE RECORDS SUMMARY | 2024-04-22 04:27 | XMS_ITS | Encounter Summary ---
Author Organization [facility] Address [address] [place] [address] Care Team Providers Care Roofing Tile Sorter Name Role Phone Edmar Temple MD Primary Care Provider [phone] Encounter Details Date Type Department Care Team (Late st Contact Info) Description 07/13/[address] [facility] Endocrinology - [facility] [address] [place] [address] Shanika Aquino NP 62 [facility] [address] [place] [address] Type 1 diabetes mellitus without complication ([facility]) (Primary Dx) Social History Tobacco Use Types [...] Description 05/17/2024 13:[address] [facility] Endocrinology - [address] [address] Twyla Mcclellan NP 62 [facility] [address] [place] [phone] 08/30/2024 14:[address] [facility] Endocrinology - [facility] [address] [place] [address] Twyla Mcclellan NP [address] [phone] documented as of this encounter Results * (ABNORMAL) POCT HEMOGLOBIN A1C (07/31/2016 10:19 EST) Hemoglobin A1C, POC Interfaced 8.3(H) <5.7 % 07/31/2016 10:42 EST [facility] supervisor public health nursing ID [id number] 07/31/2016 10:42 EST [facility] Comment:Test performed at En docrinology Blood specimen (specimen) BLOOD SPECIMEN / Unknown 07/31/2016 10:19 EST 07/31/2016 10:42 EST Shanika Aquino NP POINT OF CARE TEST ORDERABLES [facility] [address] [place] [address] documented in this encounter Visit Diagnoses Diagnosis Type 1 diabetes mellitus without complication ([facility])- Primary Type I (juvenile type) diabetes mellitus without mention of complication, not stated as uncontrolled documented in this encounter Care Teams Roofing Tile Sorter Relationship Specialty Start Date End Date Edmar Temple MD [address] [place] [phone] PCP - General 11/21/13 documented as of this encounter
--- OUTSIDE RECORDS SUMMARY | 2024-04-22 04:27 | XMS_ITS | Encounter Summary ---
Author Organization [facility] Address [address] [place] [address] Care Team Providers Care Private Equity Associate Name Role Phone Edmar Temple MD Primary Care Provider [phone] Reason for Visit * Reason Onset Date Comments Medications Refill 12/25/2014 Encounter Details Date Type Department Care Team (Late st Contact Info) Description 12/25/2014 Refill [facility] Endocrinology - [facility] [address] [place] [address] Shanika Aquino NP 62 [facility] [address] [place] [address] Medications Refill Social History Tobacco [...] End Da te metFORMIN (GLUCOPHAGE) 1,000 mg tabletIndications:Hypothyr oidism,Diabetes mellitus (HCC-CMS) Take 1 Tab by mouth 2 times daily 180 Tab 3 12/25/2014 12/27/2014 documented in this encounter Plan of Treatment Upcoming Encounters Date Type Department Care Team (Late st Contact Info) Description 05/17/2024 13:00 EDT Office Visit [facility] Endocrinology - [address] [phone] Twyla Mcclellan NP [address] [place] [phone] 08/30/2024 14:00 EST Office Visit [facility] Endocrinology [address] [address] Twyla Mcclellan NP [address] [place] [phone] documented as of this encounter Visit Diagnoses Diagnosis Hypothyroidism Unspecified hypothyroidism Diabetes mellitus ([facility]) Type II or unspecified type diabetes mellitus without mention of complication, not stated as uncontrolled documented in this encounter Discontinued Medications Medication Sig Discontinue Reason Start Date End Da te metFORMIN (GLUCOPHAGE) 1,000 mg tabletIndications:Hypothy roidism,Diabetes mellitus (HCC-CMS) Take 1 Tab by mouth 2 times daily Reorder 11/07/2014 12/25/2014 documented as of this encounter Care Teams Private Equity Associate Relationship Specialty Start Date End Date Edmar Temple MD [address] [place] [address] [address] [place] [address] PCP - General 11/21/13 documented as of this encounter
--- OUTSIDE RECORDS SUMMARY | 2024-04-22 04:27 | XMS_ITS | Encounter Summary ---
Author Organization [facility] Address [address] [place] [address] Care Team Providers Care Rubber Engraver Name Role Phone Edmar Temple MD Primary Care Provider [phone] Reason for Visit * Reason Comments Diabetes Encounter Details Date Type Department Care Team (Latest Contact Info) Description 01/06/2019 9:30 EDT Office Visit [facility] Endocrinology - [facility] [address] [place] [address] Shanika Aquino NP [address] [facility] [address] [place] [address] Type 2 diabetes mellitus with hyperglycemia ([facility]); Type 2 diabetes mellitus with hyperglycemia, with long-term current use of insulin ([facility]) Social History Tobacco Use Types Packs/Day [...] Sign Reading Time Taken Comments Blood Pressure 144/72 01/06/2019 0926 EDT Pulse - - Temperature - - Respiratory Rate - - Oxygen Saturation - - Inhaled Oxygen Concentration - - Weight 116.9 kg (257 lb 11.2 oz) 01/06/2019 0926 EDT Height 170.2 cm (5' 7.01) 01/06/2019 0926 EDT Body Mass Index 40.35 01/06/2019 0926 EDT documented in this encounter Functional Status [...] Patient Instructions * Patient Instructions* Shanika Aquino NP - 01/06/2019 9:30 EDT Don't skip boluses. Use extended bolus 50% over 2-3 hours. Basal changes - MN 2.4, 6 AM 2.5, 10 AM 4.0, 7 PM 2.7 , 10 PM 2.4. We will get most recent labs from [facility]. F/U in 6 months documented in this encounter Progress Notes * Emma Clements - 01/06/2019929 EDT Fingerstick blood sample obtained for POCT Hemoglobin A1C performed for this DOS at the order of Shanika Aquino NP * Sally Rizo - 01/06/2019929 EDT Sally Iraheta NP Student, am scribing for the provider while they perform the services. HPI Patient here today for DM2 followup last seen in office on 03/02/2018. Patient notes past several months have been stressful, given brother's cancer diagnosis and recent concern over possible recurrence of disease. Work has also been stressful - works from home 1 day a week and travels remainder of week; often catches breakfast on the run while in the car. Describes mood as ok and continuing at current dose of citalopram 20mg. Hx of gastric bypass surgery has had recent episodes of vomiting at dinner (due to dry food, eating too fast) and has not been using Extended bolus on pump for these situations; thinks this may be contributing to high A1C. [place] last [place] ([place]) and injured left foot after hiking/walking all day in flip/flops; was in boot for several months but better now. Has 2 children, takes walks with them each day - approx 2 miles or 15-20mins daily. Has had most recent bloodwork done at [facility] and states TSH levels normal at that time; she continues totake her synthroid. Medications: - Humalog pump - metformin 1000mg BID - Victoza 1.8mg in AM BS Readings: there is a 2 week gap in her Dexcom readings due to battery problems. Per Dexcom scanned report: Avg 167 SD 70 Per Omnipod: Avg 205 High 350 Low 82 Last A1C: 8.9 today; 7.3 (03/02/2018) Symptoms: Denies feeling hypoglycemic (jittery, nervous, anxious, sweating) or hyperglycemic (excessive thirsty or hunger, or frequent urination). Complications: Denies changes in vision, infection, skin problems, changes in hearing Foot care: Performs own foot care. Don't skip boluses. Use extended bolus 50% over 2-3 hours. . Diet/Exercise: Walks regularly with children; diet varies day to day - eating on the run in the AM to get to work. ROS: Denies SOB, CP, dyspnea, current illness/infections. PE: Heart sounds regular rate, rhythm. Lungs clear to auscultation bilaterally, all hansen. Foot exam: Skin intact bilaterally. Small abrasion on right lateral forefoot - mild erythema, no discharge,not warm to touch. DP +2 bilaterally. Assessment: Pt with hx of DM2, HTN, gastric bypass. DM2 managed by insulin pump, metformin 1000mg BID, Victoza 1.8mg daily. Stressors and limited exercise have contributed to recent increase in A1c. Pt motivated to make changes and continue current exercise regime. Discussed use of extended bolus feature on pump which patient is agreeable to 50% over 2-3hrs. Modified pump settings as follows: Basal changes - MN 2.4, 6 AM 2.5, 10 AM 4.0, 7 PM 2.7 , 10 PM 2.4 Plan: Education: Continue to walk daily, increase exercise. Monitor diet and limit 'on the go' meals whenpossible. Followup - 6 months or sooner PRN * Shanika Aquino NP - 01/06/2019 0993 EDT [facility] Diabetes Follow-Up Note CHIEF COMPLAINT: Linda Stewart presents in clinic today with: 1. Type 2 diabetes mellitus with hyperglycemia ([facility]) 2. Type 2 diabetes mellitus with hyperglycemia, with long-term current use of insulin ([facility]) Diabetes PROBLEM: Hypothyroidism, hypertension, sleep apnea, status post gastric bypass, type 2 diabetes controlled on pump therapy, asthma, dyslipidemia. ALLERGIES: She has no known drug allergies. HPI Patient here today for DM2 followup last seen in office on 03/02/2018. Patient notes past several months have been stressful, given brother's cancer diagnosis and recent concern over possible recurrence of disease. Work has also been stressful - works from home 1 day a week and travels remainder of week; often catches breakfast on the run while in the car. Describes mood as ok and continuing at current dose of citalopram 20mg. Hx of gastric bypass surgery has had recent episodes of vomiting at dinner (due to dry food, eating too fast) and has not been using Extended bolus on pump for these situations; thinks this may be contributing to high A1C. [place] ([place]) and injured left foot after hiking/walking all day in flip/flops; was in boot for several months but better now. Has 2 children, takes walks with them each day - approx 2 miles or 15-20mins daily. Results for LINDA STEWART ( ) as of 01/10/2019 09:17 Ref. Range 02/28/2016 14:57 05/05/2016 00:00 07/31/2016 10:19 12/18/2016 13:42 06/15/2017 10:46 10/19/2017 10:30 03/02/2018 15:18 01/06/2019 09:27 Hemoglobin A1c, POC Latest Ref Range: 5.7 % 7.6 (A) Hemoglobin A1C, POC Interfaced Latest Ref Range: <5.7 % 8.3 (H) 8.7 (H) 7.8 (H) 7.6 (H) 7.3 (H) 8.9 (H) Medications: - Humalog pump - metformin 1000mg BID - Victoza 1.8mg in AM Levothyroxine Results for LINDA STEWART ( ) as of 03/02/2018 15:40 Ref. Range 07/31/2016 10:19 12/18/2016 13:42 06/15/2017 10:46 10/19/2017 10:30 03/02/2018 15:18 Hemoglobin A1C, POC Interfaced Latest Ref Range: <5.7 % 8.3 (H) 8.7 (H) 7.8 (H) 7.6 (H) 7.3 (H) She takes luraglutide, which is helping her cut down her insulin plus metformin and insulin pump therapy. No problems with her pump, but is still getting a rash under POD some. Uses a skin barrier which helps. Metformin 1000 mg twice daily Her current settings are: Basal rate : Humalog insulin MN 0.3, 6 Am 2.5 ,10 Am 4.0, 7 PM 2.4 total 24 units/day Carb to insulin ratio is 15:1. Sensitivity is 15:1 for BS>100. Active insulin time 3.0 Also takes vitamin D and B12 She uses the extended bolus with meals 65% delivered at once and the rest over 2-3 hours. She also uses the temp basal feature with exercise 50% decrease for 1-2 hours or suspends. She uses abouot 76unit/day 855 as basal. Average BS is 171 with a SD of 81 30% high and rest in target except 1 low of 63. Range 63- 373. . DEXCOM sensor shows average is 132 with A SD of 63. 23% high, 625 moderate 14% low normal. No real lows. Glucose drop from 150 at Mn to to around 77 by laly . They climb after breakfast for day goingup more after each meal.l HS are highest at 250, and then to 160 by MN. . BS Readings: there is a 2 week gap in her Dexcom readings due to battery problems. Per Dexcom scanned report: Avg 167 SD 70 Per Omnipod: Avg 205 High 350 Low 82 ROS: Symptoms: Denies feeling hypoglycemic (jittery, nervous, [...] following prescription(s): acetaminophen, amlodipine, atorvastatin, blood glucose, calcium carbonate/vitamin d3, cholecalciferol (vitamin d3), cinnamon bark, citalopram, cyanocobalamin (vitamin b-12), ferrous sulfate, insulin glargine, insulin lispro, levothyroxine, liraglutide, losartan, metformin, multivitamin, vitamin b complex, and vitamin e. The patient has experienced the following acute complications: hypoglycemia - mild-moderate and hyperglycemia - mild-moderate. Social History Tobacco Use ??? Smoking status: Former Smoker Last attempt to quit: 09/26/2003 Years since quittin.3 ??? Smokeless tobacco: Never Used Substance Use Topics ??? Alcohol use: Yes Comment: social does not tolerate well since bariatric surgery Labs; see EMR Done at [facility]. 06/29/17 HgA1c was 8.1%, glucose 266, cr 0.61, GFR 107, hemogram in target, urine microalbumin /cr. 11.8. No labs since per [facility].. PHYSICAL EXAMINATION: Vitals: BP (!) 144/72 Ht 170.2 cm (67.01) Wt (!) 116.9 kg (257 lb 11.2 oz) BMI 40.35 kg/m?? BMI: Body mass index is 40.35 kg/m??. wt up 8 pounds is a stress eater. Clinically euthyroid On physical exam well developed morbidly obese woman in no acute distress. Heart and lung sound unremarkable with no carotid bruit. Neck supple without thyromegaly. No leg edema. PE: Heart sounds regular rate, rhythm. Lungs clear to auscultation bilaterally, all hansen. Foot exam: Skin intact bilaterally. Small abrasion on right lateral forefoot - mild erythema, no discharge, not warm to touch. DP +2 bilaterally. ASSESSMENT/PLAN: Pt with hx of DM2, HTN, gastric bypass. DM2 managed by insulin pump, metformin 1000mg BID, Victoza 1.8mg daily. Stressors and limited exercise have contributed to recent increase in A1c. Pt motivatedto make changes and continue current exercise regime. Discussed use of extended bolus feature on pump which patient is agreeable to 50% over 2-3hrs. Modified pump settings as follows: Basal changes - MN 2.4, 6 AM 2.5, 10 AM 4.0, 7 PM 2.7 , 10 PM 2.4 Clinically euthyroid on levothyroxine 25 mcg daily last TSH normal BP high today on a calcium channel manuelito not on an ISMAEL or arm Patient on a statin no recent labs found Glycemic control has improved weight is up but a stress eater and increased situational stress. No undue burden of lows . No recent lipid panel found . She takes Lipitor Lipid management deferred to PCP Blood pressure , high today on Losartan Was on an Ismael previously stopped because of a cough.-No proteinuria Hypothyroidism - on Levothyroxin - clinically euthyroid. No recent TSH. But last was unremarkable Referred to diabetic education program. No Referred to rotary engine assembler met with RD, briefly to discuss continuous glucose sensor therapy Patient referred to eye family member caretaker for annual dilated eye exam. Up to date Lifestyle modifications: recommend losing weight Patient does demonstrate knowledge of diabetes and expectations. Patient does understand medication regimen. Barriers to adherence: Financial and Emotional. PLAN: Don't skip boluses. Use extended bolus 50% over 2-3 hours. Basal changes - MN 2.4, 6 AM 2.5, 10 AM 4.0, 7 PM 2.7 , 10 PM 2.4. F/U in 6 months Shanika Aquino NP 01/10/2019 9:14 I spent a total of 25 minutes in face to face time with this patient, and 15 minutes of that time was spent in counseling and coordination of care as described in This progress note Addendum no recent labs at [facility] since 2017 so we will send orders documented in this encounter Plan of Treatment Upcoming Encounters Date Type Department Care Team (Late st Contact Info) Description 05/17/2024 13:00 EDT Office Visit [facility] Endocrinology - [address] [phone] Twyla Mcclellan NP [address] [place] [phone] 08/30/2024 14:00 EST Office Visit [address] [id number] Twyla Mcclellan NP [address] [place] [phone] documented as of this encounter Procedures Procedure Name Priority Date/Time Associated Diagnosis Comments POCT HEMOGLOBIN A1C, INTERFACED Routine 01/06/2019 9:27 EDT Type 2 diabetes mellitus with hyperglycemia ([facility]) documented in this encounter Results * (ABNORMAL) POCT HEMOGLOBIN A1C, INTERFACED (07/12/2019 9:33 EDT) Hemoglobin A1C, POC Interfaced 6.6(H) <5.7 % 07/12/2019 9:45 EDT [facility] gem stone cutter ID [id number] 07/12/2019 9:45 EDT [facility] Comment: For Hgb A1c values [...] Aquino NP POINT OF CARE TEST ORDERABLES Performing Organization Address City/State/[facility] Co de Phone Number [facility] [address] [place] [phone] * (ABNORMAL) POCT HEMOGLOBIN A1C, INTERFACED (01/06/2019 9:27 EDT) Hemoglobin A1C, POC Interfaced 8.9(H) <5.7 % 01/06/2019 9:47 EDT [facility] gem stone cutter ID [id number] 01/06/2019 9:47 EDT [facility] Comment: For Hgb A1c values [...] Blood specimen (specimen) BLOOD SPECIMEN / Unknown 01/06/2019 9:27 EDT 01/06/2019 9:47 EDT Shanika Aquino LICENSED INSURANCE SALES AGENT POINT OF CARE TEST ORDERABLES [facility] [address] [place] [address] documented in this encounter Visit Diagnoses Diagnosis Type 2 diabetes mellitus with hyperglycemia ([facility]) Type II or unspecified type diabetes mellitus without mention of complication, not stated as uncontrolled Type 2 diabetes mellitus with hyperglycemia, with long-term current use of insulin ([facility]) documented in this encounter Historical Medications * This list may reflect changes made after this encounter. Medication Sig Dispensed Refills Start Date End Date amLODIPine (NORVASC) 2.5 mg tablet Take 2 Tablets by mouth daily. added in this encounter Care Teams Rubber Engraver Relationship Specialty Start Date End Date Edmar Temple MD [facility] [address] [place] [phone] PCP - General 11/21/13 documented as of this encounter
--- OUTSIDE RECORDS SUMMARY | 2024-04-22 04:27 | XMS_ITS | Encounter Summary ---
Author Organization [facility] Address [address] [place] [address] Care Team Providers Care Press Set Up Name Role Phone Edmar Temple MD Primary Care Provider [phone] Reason for Visit * Reason Comments Diabetes Encounter Details Date Type Department Care Team (Latest Contact Info) Description 03/02/2018 15:00 EDT Office Visit [facility] Endocrinology - [facility] [address] [place] [address] Shanika Aquino NP [address] [facility] [address] [place] [address] Type 2 diabetes mellitus with hyperglycemia ([facility]); Type 2 diabetes mellitus with hyperglycemia, unspecified whether snf insulin use ([facility]) Social History Tobacco Use Types Packs/Day Years [...] Sign Reading Time Taken Comments Blood Pressure 187/85 03/02/2018 1515 EDT Pulse 72 03/02/2018 1515 EDT Temperature - - Respiratory Rate - - Oxygen Saturation - - Inhaled Oxygen Concentration - - Weight 115.7 kg (255 lb) 03/02/2018 1515 EDT Height 170.2 cm (5' 7.01) 03/02/2018 1515 EDT Body Mass Index 39.93 03/02/2018 1515 EDT documented in this encounter Functional Status [...] * Patient Instructions* Shanika Aquino ANP - 03/02/2018 15:00 EDT Check BP 1-2/day. If over 140 most of time recommend HCTZ 12.5 mg daily Basal changes MN 2.7 units./hr and 7 PM 2.7/hr. At dinner take at least 50% of your dinner bolus pre-meal. documented in this encounter Progress Notes * Ania Sotelo - 03/02/2018 1500 EDT Fingerstick blood sample obtained for POCT Hemoglobin A1C performed for this DOS at the order of JETT Yoon/Timmy Kenney MD * Shanika Aquino ANP - 03/02/[address] [facility] Diabetes Follow-Up Note CHIEF COMPLAINT: Linda Stewart presents in clinic today with: 1. Type 2 diabetes mellitus with hyperglycemia ([facility]) 2. Type 2 diabetes mellitus with hyperglycemia, unspecified whether snf insulin use ([facility]) Diabetes PROBLEM: Hypothyroidism, hypertension, sleep apnea, status post gastric bypass, type 2 diabetes controlled on pump therapy, asthma, dyslipidemia. ALLERGIES: She has no known drug allergies. SUBJECTIVEee note for details. She now has the DEXCOM continuous glucose sensor . She injured her: Linda is a 43-year-old woman with type 2 diabetes managed on an insulin pump. Seen in follow-up for medication adjustment and complication surveillance. She was last seen 10/19/2017. Her Losartan was increased because of HTN. She is stressed with her job and a brother with cancer. Results for LINDA STEWART ( ) as [...] some. Uses a skin barrier which helps. Her current settings are: Basal rate :MN 0.3, 6 Am 2.5 ,10 Am 4.0, [...] breakfast for day goingup more after each meal. Till HS are highest at 250, and then to 160 by MN. . ROS: She had gastric bypass surgery [...] which includes the following prescription(s): acetaminophen, atorvastatin, blood glucose, calcium carbonate/vitamin d3, cholecalciferol (vitamin d3), cinnamon bark, citalopram, cyanocobalamin (vitamin b-12), ferrous sulfate, insulin glargine, insulin lispro, insulin pen needles 31g x 16, levothyroxine, liraglutide, losartan, metformin, multivitamin, vitamin b complex, and vitamin e. The patient has experienced the following acute complications: hypoglycemia - mild-moderate and hyperglycemia - mild-moderate. Social History Substance Use Topics ??? Smoking status: Former Smoker Quit date: 09/26/2003 ??? Smokeless tobacco: Never Used ??? Alcohol use Yes Comment: social does not tolerate well since bariatric surgery Labs; see EMR Done at [facility]. 06/29/17 HgA1c was 8.1%, glucose 266, cr 0.61, GFR 107, hemogram in target, urine microalbumin /cr. 11.8. PHYSICAL EXAMINATION: Vitals: BP (!) 187/85 Pulse 72 Ht 170.2 cm (67.01) Wt (!) 115.7 kg (255 lb) BMI 39.93 kg/m2 BMI:Body mass index is 39.93 kg/(m^2). wt up 8 pounds is a stress eater. Repeat BP with manual cuff -150/98 On physical exam well developed morbidly obese woman in no acute distress. Heart and lung sound unremarkable with no carotid bruit. Neck supple without thyromegaly. No leg edema. ASSESSMENT/PLAN: 1. Type 2 diabetes mellitus with hyperglycemia ([facility]) 2. Type 2 diabetes mellitus with hyperglycemia, unspecified whether long term care administrator insulin use ([facility]) Glycemic control has improved weight is up [...] to diabetic education program. No Referred to manager spanish met with RD, briefly to discuss continuous glucose sensor therapy Patient referred to eye acute care physical therapist for annual dilated eye exam. Up to date Lifestyle modifications: recommend losing weight Patient does demonstrate knowledge of diabetes and expectations. Patient does understand medication regimen. Barriers to adherence: Financial and Emotional. PLAN: Check BP 1-2/day. If over 140 most of time recommend HCTZ 12.5 mg daily Basal changes MN 2.7 units./hr and 7 PM 2.7/hr. At dinner take at least 50% of your dinner bolus pre-meal. F/U in 6 months JETT Yoon 03/02/2018 15:32 I spent a total of 25 minutes in face to face time with this patient, and 15 minutes of that time was spent in counseling and coordination of care as described in This progress note documented in this encounter Plan of Treatment Upcoming Encounters Date Type Department Care Team (Late st Contact Info) Description 05/17/2024 13:00 EDT Office Visit [facility] Endocrinology - [address] [phone] Twyla Mcclellan NP [address] [place] [phone] 08/30/2024 14:00 EST Office Visit [facility] Endocrinology - [address] [phone] Twyla Mcclellan NP [address] [place] [phone] documented as of this encounter Procedures Procedure Name Priority Date/Time Associated Diagnosis Comments POCT HEMOGLOBIN A1C, INTERFACED Routine 03/02/2018 15:18 EDT Type 2 diabetes mellitus with hyperglycemia ([facility]) documented in this encounter Results * (ABNORMAL) POCT HEMOGLOBIN A1C, INTERFACED (01/06/2019 9:27 EDT) Hemoglobin A1C, POC Interfaced 8.9(H) <5.7 % 01/06/2019 9:47 EDT [facility] client partner ID [id number] 01/06/2019 9:47 EDT [facility] Comment: For Hgb A1c values [...] 9:27 EDT 01/06/2019 9:47 EDT Shanika Aquino NP POINT OF CARE TEST ORDERABLES [facility] [address] [place] [phone] * (ABNORMAL) POCT HEMOGLOBIN A1C (03/02/2018 15:18 EDT) Hemoglobin A1C, POC Interfaced 7.3(H) <5.7 % 03/02/2018 15:33 EDT [facility] client partner ID [id number] 03/02/2018 15:33 EDT [facility] Comment:Test performed at En docrinology Blood specimen (specimen) BLOOD SPECIMEN / Unknown 03/02/2018 15:18 EDT 03/02/2018 15:33 EDT Shanika Aquino CIGAR HEAD PIERCER POINT OF CARE TEST ORDERABLES [facility] [address] [place] [address] documented in this encounter Visit Diagnoses Diagnosis Type 2 diabetes mellitus with hyperglycemia, unspecified whether snf insulin use ([facility]) documented in this encounter Care Teams Press Set Up Relationship Specialty Start Date End Date Edmar Temple MD [address] [place] [address] [address] [place] [phone] PCP - General 11/21/13 documented as of this encounter
--- OUTSIDE RECORDS SUMMARY | 2024-04-22 04:27 | XMS_ITS | Encounter Summary ---
Author Organization [facility] Address [address] [place] [address] Care Team Providers Care Chief Knowledge Officer Name Role Phone Edmar Temple MD Primary Care Provider [phone] Reason for Visit * Reason Comments Other Encounter Details Date Type Department Care Team (Late st Contact Info) Description 08/21/2017 Refill [facility] Endocrinology - [facility] [address] [place] [address] Shanika Aquino NP [address] [facility] [address] [place] [address] Other Social History Tobacco Use [...] No 06/15/2017 documented as of this encounter Ordered Prescriptions Prescription Sig Dispensed Refills Start Date End Da te metFORMIN (GLUCOPHAGE) 1,000 mg tablet TAKE 1 TABLET TWICE A DAY 180 Tab 3 08/23/2017 08/21/2018 documented in this encounter Plan of Treatment Upcoming Encounters Date Type Department Care Team (Late st Contact Info) Description 05/17/2024 13:00 EDT Office Visit [facility] Endocrinology [address] [id number] Twyla Mcclellan NP [address] [place] [phone] 08/30/2024 14:00 EST Office Visit [address] [address] Twyla Mcclellan NP [address] [place] [phone] documented as of this encounter Visit Diagnoses Not on filedocumented in this encounter Discontinued Medications Medication Sig Discontinue Reason Start Date End Da te metFORMIN (GLUCOPHAGE) 1,000 mg tablet TAKE 1 TABLET TWICE A DAY Reorder 11/24/2016 08/21/2017 documented as of this encounter Care Teams Chief Knowledge Officer Relationship Specialty Start Date End Date Edmar Temple MD [address] [place] [address] [employer] [address] [phone] PCP - General 11/21/13 documented as of this encounter
--- OUTSIDE RECORDS SUMMARY | 2024-04-22 04:27 | XMS_ITS | Encounter Summary ---
Author Organization [facility] Address [address] [place] [address] Care Team Providers Care Invoice Machine Operator Name Role Phone Edmar Temple MD Primary Care Provider [phone] Reason for Visit * Reason Onset Date Comments Medications Refill 01/31/2019 Encounter Details Date Type Department Care Team (Late st Contact Info) Description 01/31/2019 Refill [facility] Endocrinology - [facility] [address] [place] [address] Shanika Aquino NP [address] [facility] [address] [place] [address] Medications Refill Social History Tobacco [...] test stripsIndications:Type 2 diabetes mellitus with hyperglycemia ([facility]) Freestyle test strips ,Use 4-5 times daily , E11.9, insulin dependent 450 Each 2 01/31/2019 04/24/2020 documented in this encounter Plan of Treatment Upcoming Encounters Date Type Department Care Team (Late st Contact Info) Description 05/17/2024 13:00 EDT Office Visit [facility] Endocrinology [address] [address] Twyla Mcclellan NP [address] [place] [phone] 08/30/2024 14:00 EST Office Visit [address] [address] Twyla Mcclellan NP [address] [place] [phone] documented as of this encounter Visit Diagnoses Diagnosis Type 2 diabetes mellitus with hyperglycemia ([facility])- Primary Type II or unspecified type diabetes mellitus without mention of complication, not stated as uncontrolled documented in this encounter Discontinued Medications Medication Sig Discontinue Reason Start Date End Da te blood glucose (FREESTYLE TEST) test stripsIndications:Type 2 diabetes mellitus with hyperglycemia ([facility]) Freestyle test strips ,Use 4-5 times daily , E11.9, insulin dependent Reorder 10/28/2018 01/31/2019 documented as of this encounter Care Teams Invoice Machine Operator Relationship Specialty Start Date End Date Edmar Temple MD [address] [place] [phone] PCP - General 11/21/13 documented as of this encounter
--- OUTSIDE RECORDS SUMMARY | 2024-04-22 04:27 | XMS_ITS | Encounter Summary ---
Author Organization [facility] Address [address] [place] [address] Care Team Providers Care Ski Production Supervisor Name Role Phone Edmar Temple MD Primary Care Provider [phone] Reason for Visit * Reason Onset Date Comments DME 01/09/2019 [facility] - CMN Follow-up 01/10/2019 Encounter Details Date Type Department Care Team (Late st Contact Info) Description 01/09/2019 Telephone [facility] Endocrinology - [facility] [address] [place] [address] Shanika Aquino NP [address] [facility] [address] [place] [address] DME ([employer] - CMN); Follow-up Social History Tobacco Use Types Packs/Day [...] encounter Miscellaneous Notes * Telephone Encounter - Cate Dee - 01/17/2019 1013 EDT Pt called asking if she should change to the G6 as the G5's will be retired? Also, [facility] saying they need the case notes from the last office visit and also the approval for the sensors and meter * Telephone Encounter - Yonatan Franz - 01/09/2019 1021 EDT Faxed CMN for CGM therapy to [facility] at [phone] on 01.09.19 documented in this encounter Plan of Treatment Upcoming Encounters Date Type Department Care Team (Late st Contact Info) Description 05/17/2024 13:00 EDT Office Visit [facility] Endocrinology - [address] [id number] Twyla Mcclellan NP [address] [place] [phone] 08/30/2024 14:00 EST Office Visit [address] [phone] Twyla Mcclellan NP [address] [place] [phone] documented as of this encounter Visit Diagnoses Not on filedocumented in this encounter Care Teams Ski Production Supervisor Relationship Specialty Start Date End Date Edmar Temple MD [address] [place] [address] [address] [place] [address] PCP - General 11/21/13 documented as of this encounter
--- OUTSIDE RECORDS SUMMARY | 2024-04-22 04:27 | XMS_ITS | Encounter Summary ---
Author Organization [facility] Address [address] [place] [address] Care Team Providers Care Regional Program Manager Name Role Phone Edmar Temple MD Primary Care Provider [phone] Reason for Visit * Reason Onset Date Comments DME 02/02/2019 Encounter Details Date Type Department Care Team (Late st Contact Info) Description 02/02/2019 Telephone [facility] Endocrinology - [facility] [address] [place] [address] Shanika Aquino NP 62 [facility] [address] [place] [phone] DME Social History Tobacco Use [...] * Telephone Encounter - Emma Clements - 02/02/2019 0927 EDT [facility]- Charting notes and A1C electronically sent on 02.02.19. documented in this encounter Plan of Treatment Upcoming Encounters Date Type Department Care Team (Late st Contact Info) Description 05/17/2024 13:00 EDT Office Visit [facility] Endocrinology - [address] [address] Twyla Mcclellan NP [address] [place] [phone] 08/30/2024 14:00 EST Office Visit [facility] Endocrinology [address] [address] Twyla Mcclellan NP [address] [place] [phone] documented as of this encounter Visit Diagnoses Not on filedocumented in this encounter Care Teams Regional Program Manager Relationship Specialty Start Date End Date Edmar Temple MD [address] [place] [address] [address] [place] [phone] PCP - General 11/21/13 documented as of this encounter
--- OUTSIDE RECORDS SUMMARY | 2024-04-22 04:27 | XMS_ITS | Encounter Summary ---
Author Organization [facility] Address [address] [place] [address] Care Team Providers Care Rn Perinatal Name Role Phone Edmar Temple MD Primary Care Provider [phone] Reason for Visit * Reason Comments Other Encounter Details Date Type Department Care Team (Late st Contact Info) Description 09/08/2016 Refill [facility] Endocrinology - [facility] [address] [place] [address] Shanika Aquino NP 62 [facility] [address] [place] [address] Other Social History Tobacco Use [...] Dispensed Refills Start Date End Da te HUMALOG 100 unit/mL vial INJECT 200 UNITS UNDER THE SKIN DAILY THROUGH OMNIPOD INSULIN PUMP 180 mL 3 09/09/2016 09/04/2017 documented in this encounter Plan of Treatment Upcoming Encounters Date Type Department Care Team (Late st Contact Info) Description 05/17/2024 13:00 EDT Office Visit [facility] Endocrinology [address] [address] Twyla Mcclellan NP [address] [place] [phone] 08/30/2024 14:00 EST Office Visit [address] [address] Twyla Mcclellan NP [address] [place] [phone] documented as of this encounter Visit Diagnoses Not on filedocumented in this encounter Discontinued Medications Medication Sig Discontinue Reason Start Date End Da te insulin lispro (HUMALOG) 100 unit/mL vial 200 units inject to skin daily through Omipod insulin pump Reorder 03/13/2016 09/08/2016 documented as of this encounter Care Teams Rn Perinatal Relationship Specialty Start Date End Date Edmar Temple MD [address] [place] [address] [address] [place] [phone] PCP - General 11/21/13 documented as of this encounter
--- OUTSIDE RECORDS SUMMARY | 2024-04-22 04:27 | XMS_ITS | Encounter Summary ---
Author Organization [facility] Address [address] [place] [address] Care Team Providers Care Director Of Customer Acquisition Name Role Phone Edmar Temple MD Primary Care Provider [phone] Reason for Visit * Reason Comments Other Encounter Details Date Type Department Care Team (Late st Contact Info) Description 09/04/2017 Refill [facility] Endocrinology - [facility] [address] [place] [address] Shanika Aquino NP [address] [facility] [address] [place] [address] Other Social History Tobacco Use [...] THROUGH OMNIPOD INSULIN PUMP 180 mL 3 09/06/2017 10/19/2017 documented in this encounter Plan of Treatment Upcoming Encounters Date Type Department Care Team (Late st Contact Info) Description 05/17/2024 13:00 EDT Office Visit [facility] Endocrinology [address] [phone] Twyla Mcclellan NP [address] [place] [phone] 08/30/2024 14:00 EST Office Visit [address] [address] Twyla Mcclellan NP [address] [place] [phone] documented as of this encounter Visit Diagnoses Not on filedocumented in this encounter Discontinued Medications Medication Sig Discontinue Reason Start Date End Da te HUMALOG 100 unit/mL vial INJECT 200 UNITS UNDER THE SKIN DAILY THROUGH OMNIPOD INSULIN PUMP Reorder 09/09/2016 09/04/2017 documented as of this encounter Care Teams Director Of Customer Acquisition Relationship Specialty Start Date End Date Edmar Temple MD [address] [place] [address] [employer] [address] [place] [phone] PCP - General 11/21/13 documented as of this encounter
--- OUTSIDE RECORDS SUMMARY | 2024-04-22 04:27 | XMS_ITS | Encounter Summary ---
Author Organization [facility] Address [address] [place] [address] Care Team Providers Care Biodiesel Production Technician Name Role Phone Edmar Temple MD Primary Care Provider [phone] Reason for Visit * Reason Comments Diabetes Encounter Details Date Type Department Care Team (Latest Contact Info) Description 10/24/2015 15:00 EST Office Visit [facility] Endocrinology - [facility] [address] [place] [address] Shanika Aquino NP 62 [facility] [address] [place] [address] Type 2 diabetes mellitus without complication (CMS-HCC) (HCC-CMS) (Primary Dx) Discharge Disposition: Auto Discharge Social [...] Sign Reading Time Taken Comments Blood Pressure 141/65 10/24/2015 1539 EST Pulse 82 10/24/2015 1539 EST Temperature - - Respiratory Rate - - Oxygen Saturation - - Inhaled Oxygen Concentration - - Weight 118.2 kg (260 lb 8 oz) 10/24/2015 1539 ES T Height 170.2 cm (5' 7) 10/24/2015 1539 EST Body Mass Index 40.8 10/24/2015 1539 EST documented in this encounter Functional Status [...] No 10/24/2015 documented as of this encounter Discharge Diagnoses Diagnosis E11.9 Type 2 diabetes mellitus without complications-E11.9[ICD-10-CM] documented in this encounter Patient Instructions * Patient Instructions* Shanika Aquino ANP - 10/24/2015 16:04 EST Square wave bolus for snacks on way home from work and lower CHO snacks. Follow-up in 4 months documented in this encounter Discharge Disposition Disposition Code Departure Means Destination Auto Discharge documented in this encounter Progress Notes * Shanika Aquino ANP - 10/24/2015 1554 EST Images from the original note were not included. [facility] Diabetes Follow-Up Note CHIEF COMPLAINT: Kymberly Stewart presents in clinic today with: 1. Type 2 diabetes mellitus without complication Diabetes PROBLEM: Hypothyroidism, hypertension, sleep apnea, status post gastric bypass, type 2 diabetes controlled on pump therapy, asthma, dyslipidemia. ALLERGIES: She has no known drug allergies. SUBJECTIVE: Kymberly is a 40-year-old woman with type 2 diabetes managed on an insulin pump. Seen in follow-up for medication adjustment and complication surveillance. Hemoglobin A1c a last visit was8.3%%, and today is 8.1. She has had an SI joint injury limiting activity and causuing pain. She had gastric bypass surgery in July of 2009. Her highest weight was 320 and a loss of 61 pounds, and weight is up 8 pounds. She is snacking between lunch and dinner. She takes luraglutide, which is helping her cut down her insulin and lose weight, plus metformin and insulin pump therapy . Her current settings are: She has titrated on her basals, which are as follows: Midnight is 2.0, 6:00 a.m. is 2.5, 10 AM 4.0 and 7 PM 2.4 units Carb to insulin ratio is 15:1. Sensitivity is 15:1. She uses the extended bolus with meals 50% over2 hours, and the temp basal feature with exercise 50% decrease for 1-2 hours or suspends. ROS: She denies chest pain, shortness of breath, numbness, tingling, calf pain, no polyuria, polydipsia, polyphagia. No blurred vision and her eye exams are up to date. No hot or cold intolerance, hair or skin changes, constipation, feeling of a lump in her throat, tremors, stomach cramping. She detects her hypoglycemia appropriately around in 's, but that has not been a major problem. About/month at PM. PMH: Her first was with her son delivered 03/2005 by an emergency C- section at 38 weeks gestational age. He was 8 pounds 2 ounces. She had some hypertension and bleeding during her .then her daughter was born 2010, FT planned C- [...] since bariatric surgery PHYSICAL EXAMINATION: Vitals: BP 141/65 mmHg Pulse 82 Ht 170.2 cm (67) Wt 118.162 kg (260 lb 8 oz) BMI 40.79 kg/m2 LMP 10/24/2015 (Exact Date) BMI: Body mass index is 40.79 kg/(m^2). On physical exam well developed morbidly obese woman in no acute distress. Heart and lung sound unremarkable with no carotid bruit. Neck supple without thyromegaly. No leg edema. LABS: Last done 04/18/2015 at [facility] - see EMR. CMP, TSH and lipid panel unremarkable No urine microalbumin found. ASSESSMENT/PLAN: Slight improvement in glycemic control, but snacking in [address] home from work. Also work is very stressful as is traveling a lot. Excellent response to luraglutide, but has gained some. .losing weight.BS climb after dinner On a statin now. Lipid management deferred to PCP Blood pressure marginally high today. Not on an BLADE or ARB. micoalbumin unremarkable - Hypothyroidism - on Levothyroxin - TSH unremarkable , clinically euthyroid 1. Type 2 diabetes mellitus without complication Our office will provide ongoing management of this patients' diabetes with a hemoglobin A1C goal ofless than 7. We have instructed the patient to call us with blood sugar values. I would like you tocontinue to manage their blood pressure, lipids and other preventive care. Referred to diabetic education program. No Referred to car repairer pullman no Patient referred to eye primary care coordinator for annual dilated eye exam. Up to date Lifestyle modifications: recommend losing weight Patient does demonstrate knowledge of diabetes and expectations. Patient does understand medication regimen. Barriers to adherence: Financial and Emotional. PLAN: cONTINUE Square wave bolus for snacks on way home from work and lower CHO snacks. Follow-up in 4 months Check Blood Sugar:Before meals and before bedtime. Goals and plan to achieve these discussed. Systolic blood pressure less than 140. And diastolic blood pressure less than 80. Hemoglobin A1C less than 7%. LDL cholesterol: 70 to 99. HDL males >40 and females >50 mgm/dl Triglycerides fasting <150 mgm/dl JETT Yoon 10/24/2015 15:54 I spent a total of 25 minutes in face to face time with this patient, and 15 minutes of that time was spent in counseling and coordination of care as described in This progress note * Jennifer Maria - 10/24/2015 4866 EST Fingerstick blood sample obtained for POCT Hemoglobin A1C performed for this DOS at the order of JETT Yoon documented in this encounter Plan of Treatment Upcoming Encounters Date Type Department Care Team (Late st Contact Info) Description 05/17/2024 13:00 EDT Office Visit [facility] Endocrinology - [address] [address] Twyla Mcclellan NP [address] [phone] 08/30/2024 14:00 EST Office Visit [facility] - [address] [address] Twyla Mcclellan NP [address] [phone] documented as of this encounter Procedures Procedure Name Priority Date/Time Associated Diagnosis Comments POCT HEMOGLOBIN A1C Routine 10/24/2015 1 5:41 EST Type 2 diabetes mellitus without complication ([facility]) ([facility]) documented in this encounter Results * (ABNORMAL) POCT HEMOGLOBIN A1C (10/24/2015 15:41 EST) Hemoglobin A1c, POC 8.1(A) 5.7 % POINT OF CARE 10/24/2015 15:4 1 EST Shanika Aquino NP POINT OF CARE TEST ORDERABLES POINT OF CARE documented in this encounter Visit Diagnoses Diagnosis Type 2 diabetes mellitus without complication ([facility])- Primary Type II or unspecified type diabetes mellitus without mention of complication, not stated as uncontrolled documented in this encounter Care Teams Biodiesel Production Technician Relationship Specialty Start Date End Date Edmar Temple MD [address] [place] [phone] PCP - General 11/21/13 documented as of this encounter
--- OUTSIDE RECORDS SUMMARY | 2024-04-22 04:27 | XMS_ITS | Encounter Summary ---
Author Organization [facility] Address [address] [place] [address] Care Team Providers Care Transaction Advisory Services Manager Name Role Phone Edmar Temple MD Primary Care Provider [phone] Reason for Visit * Reason Comments Diabetes Encounter Details Date Type Department Care Team (Latest Contact Info) Description 12/18/2016 13:20 EDT Office Visit [facility] Endocrinology - [facility] [address] [place] [address] Shanika Aquino NP [address] [facility] [address] [place] [address] Diabetes mellitus without complication ([facility]) (Primary Dx) Social History Tobacco Use [...] Sign Reading Time Taken Comments Blood Pressure 174/72 12/18/2016 1322 EDT Pulse 93 12/18/2016 1322 EDT Temperature - - Respiratory Rate - - Oxygen Saturation - - Inhaled Oxygen Concentration - - Weight 111.1 kg (245 lb) 12/18/2016 1322 EDT Height 170.2 cm (5' 7.01) 12/18/2016 1322 EDT Body Mass Index 38.36 12/18/2016 1322 EDT documented in this encounter Functional Status [...] No 12/18/2016 documented as of this encounter Patient Instructions * Patient Instructions* Shanika Aquino ANP - 12/18/2016 13:20 EDT BMP, lipid panel , LFT's , tsh and urine microalbumin No changes today Be sure when sick to use sugar free cough med. F/U 4 months. documented in this encounter Ordered Prescriptions Prescription Sig Dispensed Refills Start Date End Da te insulin pen needles 31G x 3/16 Use as directed daily. Brand: BD Ultra Fine Mini 100 Each 3 12/18/2016 12/18/2017 insulin glargine (LANTUS SOLOSTAR) 100 unit/mL (3 mL) injection penIndications:Diabetes mellitus without complication ([facility]) Inject 60 Units into the skin at bedtime. Pump back up hold to file 2 Each 3 12/18/2016 04/24/2020 documented in this encounter Progress Notes * Aron Payton - 12/18/2016 1320 EDT Fingerstick blood sample obtained for POCT Hemoglobin A1C performed for this DOS at the order of JETT Yoon * Shanika Aquino ANP - 12/18/2016 1320 EDT [facility] Diabetes Follow-Up Note CHIEF COMPLAINT: Kymberly Stewart presents in clinic today with: 1. Diabetes mellitus without complication Diabetes PROBLEM: Hypothyroidism, hypertension, sleep apnea, status post gastric bypass, type 2 diabetes controlled on pump therapy, asthma, dyslipidemia. ALLERGIES: She has no known drug allergies. SUBJECTIVE: Kymberly is a 41-year-old woman with type 2 diabetes managed on an insulin pump. Seen in follow-up for medication adjustment and complication surveillance. She was last seen 07/31/2016. Please see note for details. She says she has been stressed between her job, working for the [employer] and everyone in her family's been sick the last couple of months with the flu and upper respiratory infections. Also, she was using sugar-containing cough medicines. Ref. Range 04/25/2015 10:40 10/24/2015 15:41 02/28/2016 14:57 07/31/2016 10:19 12/18/2016 13:42 Hemoglobin A1c, POC Latest Ref Range: 5.7 % 8.3 (A) 8.1 (A) 7.6 (A) Hemoglobin A1C, POC Interfaced Latest Ref Range: <5.7 % 8.3 (H) 8.7 (H) She takes luraglutide, which is helping [...] 1-2 hours or suspends. Pump download shows 32 to blood sugars in last 2 weeks. About 2 a day. They average 132 with 22%. Above target and 9% below. They range 46- to 409. She mostly tests in the morning, or before lunch which are either in target or high. Her 3 lows are scattered ROS: She had gastric bypass surgery in July of 2009. Her highest weight was 320 and and lost 61pounds, - she has lost another 4 pounds (12 since September). She denies chest pain, shortness of breath, numbness, tingling, calf pain, no polyuria, polydipsia,polyphagia. No blurred vision and her eye exams are up to date. No hot or cold intolerance, hair orskin changes, constipation, feeling of a lump in her throat, tremors, stomach cramping. She detectsher hypoglycemia appropriately around in 70's, but that has not been a major problem. About 1/monthat PM. PMH: Her first delivered 03/2005 by an emergency at 38 weeks gestational age. Hewas 8 pounds 2 ounces. She had some hypertension and bleeding during her . Her daughter was born 2010, FT planned C- section Wt. 9 lb 8 oz. Kymberly Stewart recently has a history of being in poor glycemic control. Patient's home regimen consists of has a current medication list which includes the following prescription(s): acetaminophen, atorvastatin, calcium carbonate/vitamin d3, cholecalciferol (vitamin d3),citalopram, cyanocobalamin (vitamin b-12), ferrous sulfate, humalog, insulin glargine, levothyroxine, liraglutide, metformin, multivitamin, vitamin b complex, [...] PHYSICAL EXAMINATION: Vitals: Visit Vitals ??? BP (!) 174/72 ??? Pulse 93 ??? Ht 170.2 cm (67.01) ??? Wt (!) 111.1 kg (245 lb) ??? LMP 12/17/2016 (Approximate) ??? BMI 38.36 kg/m2 BMI: Body mass index is 38.36 kg/(m^2). On physical exam well developed morbidly obese woman in no acute distress. Heart and lung sound unremarkable with no carotid bruit. Neck supple without thyromegaly. No leg edema. LABS: See EMR Last available done 04/18/2015 at [facility], TSH and lipid panel unremarkable No urine microalbumin found. ASSESSMENT/PLAN: Glycemic control has slipped. From recent stress at work and an sickness . Has lost 3 more pounds. Excellent response to luraglutide. Needs to check blood sugars more for pump adjustment. Reviewed sick day rules reminded to carry Lantus when traveling and given a prescription today. Also told her she could take 1 shot of Lantus daily if she wanted instead of taking it all by basal, which would then allow her to wear her pods 3 instead of 2 days. For now she like to continue as is. No recent lipid panel found . She takes Lipitor Lipid management deferred to PCP Blood pressure , high today Not on an BLADE or ARB. No recent micoalbumin available. - Hypothyroidism - on Levothyroxin - clinically euthyroid. No recent TSH. But last was unremarkable 1. Diabetes mellitus without complication Referred to diabetic education program. No Referred to membership correspondent met with RD, briefly to discuss continuous glucose sensor therapy Patient referred to eye daycare manager for annual dilated eye exam. Up to date Lifestyle modifications: recommend losing weight Patient does demonstrate knowledge of diabetes and expectations. Patient does understand medication regimen. Barriers to adherence: Financial and Emotional. PLAN: BMP, lipid panel , LFT's , tsh and urine microalbumin No changes today Be sure when sick to use sugar free cough med. F/U 4 months. Goals and plan to achieve these discussed. Systolic blood pressure less than 140. And diastolic blood pressure less than 80. Hemoglobin A1C less than 7%. LDL cholesterol: 70 to 99. HDL males >40 and females >50 mgm/dl Triglycerides fasting <150 mgm/dl JETT Yoon 12/18/2016 13:54 I spent a total of 25 minutes [...] Office Visit [facility] Endocrinology - [address] [id number] Twyla Mcclellan NP [address] [place] [address] [address] [place] [phone] 08/30/2024 14:00 EST Office Visit [facility] Endocrinology - [address] [phone] Twyla Mcclellan NP [address] [facility] [address] [place] [address] documented as of this encounter Procedures Procedure Name Priority Date/Time Associated Diagnosis Comments POCT HEMOGLOBIN A1C, INTERFACED Routine 12/18/2016 13:42 EDT Diabetes mellitus without complication ([facility]) documented in this encounter Results * (ABNORMAL) POCT HEMOGLOBIN A1C (06/15/2017 10:46 EDT) Hemoglobin A1C, POC Interfaced 7.8(H) <5.7 % 06/15/2017 11:02 EDT [facility] bottom buffer ID [id number] 06/15/2017 11:02 EDT [facility] Comment:Test performed at En docrinology Blood specimen (specimen) BLOOD SPECIMEN / Unknown 06/15/2017 10:46 EDT 06/15/2017 11:02 EDT Shanika Aquino NP POINT OF CARE TEST ORDERABLES Performing Organization Address City/[facility]/ZIP Co de Phone Number [facility] [address] [place] [phone] * (ABNORMAL) POCT HEMOGLOBIN A1C (12/18/2016 13:42 EDT) Hemoglobin A1C, POC Interfaced 8.7(H) <5.7 % 12/18/2016 13:50 EDT [facility] bottom buffer ID [id number] 12/18/2016 13:50 EDT [facility] Comment:Test performed at En docrinology Blood specimen (specimen) BLOOD SPECIMEN / Unknown 12/18/2016 13:42 EDT 12/18/2016 13:50 EDT Shanika Aquino NP POINT OF CARE TEST ORDERABLES [facility] [address] [place] [address] documented in this encounter Visit Diagnoses Diagnosis Diabetes mellitus without complication ([facility])- Primary Type II or unspecified type diabetes mellitus without mention of complication, not stated as uncontrolled documented in this encounter Discontinued Medications Medication Sig Discontinue Reason Start Date End Da te insulin glargine (LANTUS SOLOSTAR) 100 unit/mL (3 mL) injection penIndications:Hypothyro idism,Diabetes mellitus ([facility]) Inject 70 Units into the skin at bedtime Pump back up hold to file Reorder 11/07/2014 12/18/2016 documented as of this encounter Historical Medications * This list may reflect changes made after this encounter. Medication Sig Dispensed Refills Start Date End Date atorvastatin (LIPITOR) 10 mg tablet Take 2 Tablets by mouth daily. added in this encounter Care Teams Transaction Advisory Services Manager Relationship Specialty Start Date End Date Edmar Temple MD [facility] [address] [place] [phone] PCP - General 11/21/13 documented as of this encounter
--- OUTSIDE RECORDS SUMMARY | 2024-04-22 04:27 | XMS_ITS | Encounter Summary ---
Author Organization [facility] Address [address] [place] [address] Care Team Providers Care Room Attendants Name Role Phone Edmar Temple MD Primary Care Provider [phone] Reason for Visit * Reason Onset Date Comments Prior Auth, Medication 01/24/2019 Encounter Details Date Type Department Care Team (Late st Contact Info) Description 01/24/2019 Telephone [facility] Endocrinology - [facility] [address] [place] [address] Shanika Aquino NP [address] [facility] [address] [place] [address] Prior Auth, Medication Social History Tobacco Use [...] encounter Miscellaneous Notes * Telephone Encounter - Felipa Burnham - 01/24/2019 1137 EDT Calling to find out if Dr Aquino had chosen which medication alternative for Victoza she had chosen. This comic writer double checked veronica/Jeffrey and was told to send note to office. Reference #[id number] documented in this encounter Plan of Treatment Upcoming Encounters Date Type Department Care Team (Late st Contact Info) Description 05/17/2024 13:00 EDT Office Visit [facility] Endocrinology - [address] [address] Twyla Mcclellan NP [address] [place] [phone] 08/30/2024 14:00 EST Office Visit [facility] - [address] [phone] Twyla Mcclellan NP [address] [place] [phone] documented as of this encounter Visit Diagnoses Not on filedocumented in this encounter Care Teams Room Attendants Relationship Specialty Start Date End Date Edmar Temple MD [address] [place] [address] [address] [place] [phone] PCP - General 11/21/13 documented as of this encounter
--- OUTSIDE RECORDS SUMMARY | 2024-04-22 04:27 | XMS_ITS | Encounter Summary ---
Author Organization [facility] Address [address] [place] [address] Care Team Providers Care Ict Development Manager Name Role Phone Edmar Temple MD Primary Care Provider [phone] Encounter Details Date Type Department Care Team (Late st Contact Info) Description 09/09/2016 Orders Only [address] [address] Nora Sharma, RN [address] [place] [address] Social History Tobacco Use Types Packs/Day Years [...] Info) Description 05/17/2024 13:00 EDT Office Visit [address] [phone] Twyla Mcclellan NP [address] [phone] 08/30/2024 14:00 EST Office Visit [facility] Endocrinology - [address] [phone] Twyla Mcclellan NP [address] [address] documented as of this encounter Visit Diagnoses Not on filedocumented in this encounter Care Teams Ict Development Manager Relationship Specialty Start Date End Date Edmar Temple MD [address] [place] [address] [address] [place] [address] PCP - General 11/21/13 documented as of this encounter
--- OUTSIDE RECORDS SUMMARY | 2024-04-22 04:27 | XMS_ITS | Encounter Summary ---
Author Organization [facility] Address [address] [place] [address] Care Team Providers Care Open Die Inspector Name Role Phone Edmar Temple MD Primary Care Provider [phone] Reason for Visit * Reason Comments Diabetes Encounter Details Date Type Department Care Team (Latest Contact Info) Description 02/28/2016 15:00 EDT Office Visit [facility] Endocrinology - [facility] [address] [place] [address] Shanika Aquino NP 62 [facility] [address] [place] [address] Type 2 diabetes mellitus without complications (CMS-HCC) (HCC-CMS) (Primary Dx) Social History Tobacco Use Types [...] Sign Reading Time Taken Comments Blood Pressure 139/64 02/28/2016 1457 EDT Pulse 65 02/28/2016 1457 EDT Temperature - - Respiratory Rate - - Oxygen Saturation - - Inhaled Oxygen Concentration - - Weight 114.3 kg (252 lb) 02/28/2016 1457 EDT Height 170.2 cm (5' 7.01) 02/28/2016 1457 EDT Body Mass Index 39.46 02/28/2016 1457 EDT documented in this encounter Functional Status [...] No 02/28/2016 documented as of this encounter Discharge Diagnoses Diagnosis E11.9 Type 2 diabetes mellitus without complications-E11.9[ICD-10-CM] documented in this encounter Patient Instructions * Patient Instructions* Shanika Aquino ANP - 02/28/2016 15:44 EDT PLAN: Continue current pump settings. Follow-up in 4 months Check Blood Sugar:Before meals and before bedtime. Goals and plan to achieve these discussed. Systolic blood pressure less than 140. And diastolic blood pressure less than 80. Hemoglobin A1C less than 7%. LDL cholesterol: 70 to 99. documented in this encounter Progress Notes * Shanika Aquino ANP - 02/28/2016 1532 EDT [facility] Diabetes Follow-Up Note CHIEF COMPLAINT: Kymberly Stewart presents in clinic today with: 1. Type 2 diabetes mellitus without complications Diabetes PROBLEM: Hypothyroidism, hypertension, sleep apnea, status post gastric bypass, type 2 diabetes controlled on pump therapy, asthma, dyslipidemia. ALLERGIES: She has no known drug allergies. SUBJECTIVE: Kymberly is a 41-year-old woman with type 2 diabetes managed on an insulin pump. Seen in follow-up for medication adjustment and complication surveillance. Hemoglobin A1c a last visit was8.1%%, and today is 7.6%. She re injured her SI joint injury and also sustained sciatic dic injury after a fall in November while hiking now resolved. She had gastric bypass surgery in July of 2009.Her highest weight was 320 and and lost 61 pounds, - weight is stable. She no longer snacks betweenlunch and dinner. She takes luraglutide, which is helping her cut down her insulin and lose weight, plus metformin and insulin pump therapy. Her current settings are: She has titrated down her basals, which are as follows: Midnight is 2.0, 6:00 a.m. is 2.5, 10 AM 4.0 and 7 PM 2.4 units Carb to insulin ratio is 15:1. Sensitivity is 15:1 for BS>100. She uses the extended bolus with meals 50% over 2 hours, and the temp basal feature with exercise 50% decrease for 1-2 hours or suspends. Pump download shows few blood sugars in last 2 weeks. 76% in target 4% high. Fastings range 74-142,averaging 112 noon average 110, ranging 65-163, dinner average 183 ranging 114-302 ROS: She denies chest pain, shortness of [...] b-12), ferrous fumarate, insulin aspart, insulin glargine, levothyroxine, metformin, multivitamin, vitamin b complex, and vitamin e. The patient has experienced the following acute complications: hypoglycemia - mild-moderate and hyperglycemia - mild-moderate. History Substance Use Topics ??? Smoking status: Former Smoker Quit date: 09/26/2003 ??? Smokeless tobacco: Not on file ??? Alcohol Use: Yes Comment: social does not tolerate well since bariatric surgery PHYSICAL EXAMINATION: Vitals: BP 139/64 mmHg Pulse 65 Ht 170.2 cm (67.01) Wt 114.306 kg (252 lb) BMI 39.46 kg/m2 LMP 02/23/2016 BMI: Body mass index is 39.46 kg/(m^2). On physical exam well developed morbidly obese woman in no acute distress. Heart and lung sound unremarkable with no carotid bruit. Neck supple without thyromegaly. No leg edema. LABS: Last done 04/18/2015 at [facility] E[facility]. CMP, TSH and lipid panel unremarkable No urine microalbumin found. ASSESSMENT/PLAN: Improved glycemic control, despite back issues, and has lost wt. Excellent response to luraglutide. On a statin now. Lipid management deferred to PCP Blood pressure marginally in target today. Not on an BLADE or ARB. micoalbumin unremarkable - Hypothyroidism - on Levothyroxin - TSH unremarkable , clinically euthyroid 1. Type 2 diabetes mellitus without complications Referred to diabetic education program. No Referred to buncher operator no Patient referred to eye daytime caregiver for annual dilated eye exam. Up to date Lifestyle modifications: recommend losing weight Patient does demonstrate knowledge of diabetes and expectations. Patient does understand medication regimen. Barriers to adherence: Financial and Emotional. PLAN: Continue current pump settings. Follow-up in 4 months Check Blood Sugar:Before meals and before bedtime. Goals and plan to achieve these discussed. Systolic blood pressure less than 140. And diastolic blood pressure less than 80. Hemoglobin A1C less than 7%. LDL cholesterol: 70 to 99. HDL males >40 and females >50 mgm/dl Triglycerides fasting <150 mgm/dl JETT Yoon 02/28/2016 15:32 I spent a total of 25 minutes in face to face time with this patient, and 15 minutes of that time was spent in counseling and coordination of care as described in This progress note * Ania Sotelo - 02/28/2016 3444 EDT Fingerstick blood sample obtained for POCT Hemoglobin A1C performed for this DOS at the order of JETT Yoon documented in this encounter Plan of Treatment Upcoming Encounters Date Type Department Care Team (Late st Contact Info) Description 05/17/2024 13:00 EDT Office Visit [facility] Endocrinology - [facility] [address] [place] [address] Twyla Mcclellan NP 62 [facility] [address] [place] [phone] 08/30/2024 14:00 EST Office Visit [facility] Endocrinology - [facility] [address] [place] [address] Twyla Mcclellan NP [address] [phone] documented as of this encounter Procedures Procedure Name Priority Date/Time Associated Diagnosis Comments POCT HEMOGLOBIN A1C Routine 02/28/2016 1 4:57 EDT Type 2 diabetes mellitus without complications ([facility] ([facility]) documented in this encounter Results * (ABNORMAL) POCT HEMOGLOBIN A1C (02/28/2016 14:57 EDT) Hemoglobin A1c, POC 7.6(A) 5.7 % POINT OF CARE 02/28/2016 14:5 7 EDT Shanika Aquino NP POINT OF CARE TEST ORDERABLES POINT OF CARE documented in this encounter Visit Diagnoses Diagnosis Type 2 diabetes mellitus without complications ([facility])- Primary Type II or unspecified type diabetes mellitus without mention of complication, not stated as uncontrolled documented in this encounter Care Teams Open Die Inspector Relationship Specialty Start Date End Date Edmar Temple MD [address] [place] [phone] PCP - General 11/21/13 documented as of this encounter
--- OUTSIDE RECORDS SUMMARY | 2024-04-22 04:27 | XMS_ITS | Encounter Summary ---
Author Organization [facility] Address [address] [place] [address] Care Team Providers Care Manager Creative Name Role Phone Edmar Temple MD Primary Care Provider [phone] Reason for Visit * Reason Comments Other Encounter Details Date Type Department Care Team (Late st Contact Info) Description 11/22/2016 Refill [facility] Endocrinology - [facility] [address] [place] [address] Shanika Auqino NP [address] [facility] [address] [place] [address] Other Social History Tobacco Use [...] 1 TABLET TWICE A DAY 180 Tab 2 11/24/2016 08/21/2017 documented in this encounter Plan of Treatment Upcoming Encounters Date Type Department Care Team (Late st Contact Info) Description 05/17/2024 13:00 EDT Office Visit [facility] Endocrinology [address] [phone] Twyla Mcclellan NP [address] [place] [phone] 08/30/2024 14:00 EST Office Visit [address] [address] Twyla Mcclellan NP [address] [place] [phone] documented as of this encounter Visit Diagnoses Not on filedocumented in this encounter Discontinued Medications Medication Sig Discontinue Reason Start Date End Da te metFORMIN (GLUCOPHAGE) 1,000 mg tablet TAKE 1 TABLET TWICE A DAY Reorder 11/29/2015 11/22/2016 documented as of this encounter Care Teams Manager Creative Relationship Specialty Start Date End Date Edmar Temple MD [address] [place] [address] [address] [place] [phone] PCP - General 11/21/13 documented as of this encounter
--- OUTSIDE RECORDS SUMMARY | 2024-04-22 04:27 | XMS_ITS | Encounter Summary ---
Author Organization [facility] Address [address] [place] [address] Care Team Providers Care Lead Database Administrator Name Role Phone Edmar Temple MD Primary Care Provider [phone] Reason for Visit * Reason Comments Diabetes Encounter Details Date Type Department Care Team (Latest Contact Info) Description 10/19/2017 10:20 EST Office Visit [facility] Endocrinology - [facility] [address] [place] [address] Shanika Aquino NP [address] [facility] [address] [place] [address] Type 2 diabetes mellitus with hyperglycemia, unspecified long-term insulin use status (HCC) (Primary Dx); Diabetes mellitus without complication (CMS-HCC) (HCC-CMS); Acquired hypothyroidism Social History Tobacco Use Types Packs/Day Years [...] Sign Reading Time Taken Comments Blood Pressure 142/80 10/19/2017 1024 EST Pulse 80 10/19/2017 1024 EST Temperature - - Respiratory Rate - - Oxygen Saturation - - Inhaled Oxygen Concentration - - Weight 112 kg (247 lb) 10/19/2017 1024 EST Height 170.2 cm (5' 7.01) 10/19/2017 1024 EST Body Mass Index 38.68 10/19/2017 1024 EST documented in this encounter Functional Status Functional Status Response Date of Assess ment Because of a physical, menta l, or emotional condition, does this person have difficulty doing errands alone such as visiting a doctor's office or shopping? No 10/19/2017 Cognitive Status Response Date of Assessm ent Because of a physical, menta l, or emotional condition, does this person have serious difficulty concentrating, remembering, or making decisions? No 10/19/2017 documented as of this encounter Patient Instructions * Patient Instructions* Shanika Aquino ANP - 10/19/2017 10:20 EST Try a 12:1 or 10 :1 CHO ratio at breakfast Try to bolus for all food. Try to take at least 50% of your bolus pre-meal or use extended bolus at home as well F/U in 4 months documented in this encounter Ordered Prescriptions Prescription Sig Dispensed Refills Start Date End Da te insulin lispro (HUMALOG) 100 unit/mL vial Inject 70 Units into the skin continuous. 70 mL 3 10/19/2017 04/24/2020 liraglutide (VICTOZA 3-NIKA) 0.6 mg/0.1 mL (18 mg/3 mL) injectable penIndications:Acquired hypothyroidism INJECT 1.8 MG INTO THE SKIN DAILY 27 mL 3 10/19/2017 01/17/2019 blood glucose (FREESTYLE TEST) test stripsIndications:Type 2 diabetes mellitus with hyperglycemia, unspecified radiation therapist insulin use status 4-5 /day 450 Each 3 10/19/2017 10/28/2018 documented in this encounter Progress Notes * Denise Ortiz - 10/19/2017 1020 EST Fingerstick blood sample obtained for POCT Hemoglobin A1C performed for this DOS at the order of JETT Yoon/Timmy Kenney MD. * Shanika Aquino ANP - 10/19/2017 1020 EST [facility] Diabetes Follow-Up Note CHIEF COMPLAINT: Linda Stewart presents in clinic today with: 1. Type 2 diabetes mellitus with hyperglycemia, unspecified radiation therapist insulin use status ([facility]) 2. Diabetes mellitus without complication ([facility]) Diabetes PROBLEM: Hypothyroidism, hypertension, sleep apnea, status post gastric bypass, type 2 diabetes controlled on pump therapy, asthma, dyslipidemia. ALLERGIES: She has no known drug allergies. SUBJECTIVE: Linda is a 42-year-old woman with type 2 diabetes managed on an insulin pump. Seen in follow-up for medication adjustment and complication surveillance. She was last seen 06/15/2017.. Please see note for details. She now has the DEXCOM continuous glucose sensor . She injured her anklelast May which still hurts at times. Her Losartan was increased because of HTN. Results for LINDA STEWART ( ) as of 10/24/2017 21:27 Ref. Range 02/28/2016 14:57 07/31/2016 10:19 12/18/2016 13:42 06/15/2017 10:46 10/19/2017 10:30 Hemoglobin A1c, POC Latest Ref Range: 5.7 % 7.6 (A) Hemoglobin A1C, POC Interfaced Latest Ref Range: <5.7 % 8.3 (H) 8.7 (H) 7.8 (H) 7.6 (H) She takes luraglutide, which is helping her cut down her insulin and lose weight, plus metformin and insulin pump therapy. No problems with her pump, but is getting a rash under POD. Uses a skin barrier. . Her current settings are: Basal rate :MN 23.0, 10 Am 3.75, 1 PM 4.75, 7 PM 2.0 Carb to insulin ratio is 15:1. Sensitivity is 15:1 for BS>100. Active insulin time 3.0 She uses the extended bolus with meals 65% delivered at once and the rest over 2-3 hours. She also uses the temp basal feature with exercise 50% decrease for 1-2 hours or suspends. Her average daily basal last week was 87 units and about 60 units or 70-75% as basal. DEXCOM sensor shows average is 159.glucses rise after breakfast and after dinner to 325 but <150by bed. In target overnight. Meter download average 194 and range 44-409. The high was yesterday with a faulty pod. ROS: She had gastric bypass surgery in [...] insulin pen needles 31g x /16, levothyroxine, losartan, metformin, multivitamin, victoza 3-nika,vitamin b complex, and vitamin e. The patient [...] /cr. 11.8. PHYSICAL EXAMINATION: Vitals: BP (!) 142/80 Pulse 80 Ht 170.2 cm (67.01) Wt (!) 112 kg (247 lb) BMI 38.68 kg/m2 BMI: Body mass index is 38.68 kg/(m^2). On physical exam well developed morbidly obese woman in no acute distress. Heart and lung sound unremarkable with no carotid bruit. Neck supple without thyromegaly. No leg edema. ASSESSMENT/PLAN: 1. Type 2 diabetes mellitus with hyperglycemia, unspecified long-term insulin use status ([facility]) 2. Diabetes mellitus without complication ([facility]) Glycemic control has improved weight is stable. Excellent response to luraglutide. No undue burden of lows . No [...] to diabetic education program. No Referred to senior maintenance mechanic met with RD, briefly to discuss continuous glucose sensor therapy Patient referred to eye childcare center director for annual dilated eye exam. Up to date Lifestyle modifications: recommend losing weight Patient does demonstrate knowledge of diabetes and expectations. Patient does understand medication regimen. Barriers to adherence: Financial and Emotional. PLAN: Try a 12:1 or 10 :1 CHO ratio at breakfast Try to bolus for all food. Try to take at least 50% of your bolus pre-meal or use extended bolus at home as well F/U in 4 months JETT Yoon 10/19/2017 10:41 I spent a total of 25 minutes in face to face time with this patient, and 15 minutes of that time was spent in counseling and coordination of care as described in This progress note documented in this encounter Plan of Treatment Upcoming Encounters Date Type Department Care Team (Late st Contact Info) Description 05/17/2024 13:00 EDT Office Visit [facility] Endocrinology - [address] [address] Twyla Mcclellan NP [address] [place] [address] [address] [place] [phone] 08/30/2024 14:00 EST Office Visit [facility] Endocrinology - [address] [address] Twyla Mcclellan NP 62 [facility] [address] [place] [address] documented as of this encounter Procedures Procedure Name Priority Date/Time Associated Diagnosis Comments POCT HEMOGLOBIN A1C, INTERFACED Routine 10/19/2017 10:30 EST Diabetes mellitus without complication (CMS-HCC) (HCC-[facility]) documented in this encounter Results * (ABNORMAL) POCT HEMOGLOBIN A1C (03/02/2018 15:18 EDT) Hemoglobin A1C, POC Interfaced 7.3(H) <5.7 % 03/02/2018 15:33 EDT [facility] rn care manager ID [id number] 03/02/2018 15:33 EDT [facility] Comment:Test performed at En docrinology Blood specimen (specimen) BLOOD SPECIMEN / Unknown 03/02/2018 15:18 EDT 03/02/2018 15:33 EDT Shanika Aquino NP POINT OF CARE TEST ORDERABLES Performing Organization Address City/[facility]/ZIP Co de Phone Number [facility] [address] [place] [address] * (ABNORMAL) POCT HEMOGLOBIN A1C (10/19/2017 10:30 EST) Hemoglobin A1C, POC Interfaced 7.6(H) <5.7 % 10/19/2017 10:52 EST [facility] rn care manager ID [id number] 10/19/2017 10:52 EST [facility] Comment:Test performed at En docrinology Blood specimen (specimen) BLOOD SPECIMEN / Unknown 10/19/2017 10:30 EST 10/19/2017 10:52 EST Shanika Aquino NP POINT OF CARE TEST ORDERABLES [facility] [address] [place] [address] documented in this encounter Visit Diagnoses Diagnosis Type 2 diabetes mellitus with hyperglycemia, unspecified long-term insulin use status (HCC)- Primary Diabetes mellitus without complication (HCC-[facility]) Type II or unspecified type diabetes mellitus without mention of complication, not stated as uncontrolled Acquired hypothyroidism Unspecified hypothyroidism documented in this encounter Discontinued Medications Medication Sig Discontinue Reason Start Date End Da te VICTOZA 3-NIKA 0.6 mg/0.1 mL (18 mg/3 mL) injectable penIndications:Acquired hypothyroidism INJECT 1.8 MG INTO THE SKIN DAILY Reorder 03/01/2017 10/19/2017 HUMALOG 100 unit/mL vial INJECT 200 UNITS UNDER THE SKIN DAILY THROUGH OMNIPOD INSULIN PUMP Reorder 09/06/2017 10/19/2017 documented as of this encounter Historical Medications * This list may reflect changes made after this encounter. Medication Sig Dispensed Refills Start Date End Date losartan (COZAAR) 50 mg tablet Take 1 Tablet by mouth daily. added in this encounter Care Teams Lead Database Administrator Relationship Specialty Start Date End Date Edmar Temple MD [facility] [employer] [address] [place] [address] PCP - General 11/21/13 documented as of this encounter
--- OUTSIDE RECORDS SUMMARY | 2024-04-22 04:27 | XMS_ITS | Encounter Summary ---
Author Organization [facility] Address [address] [place] [address] Care Team Providers Care Jitterbug Operator Name Role Phone Edmar Temple MD Primary Care Provider [phone] Encounter Details Date Type Department Care Team (Late st Contact Info) Description 05/07/2015 Orders Only [facility] Endocrinology - [facility] [address] [place] [address] Shanika Aquino NP 62 [facility] [address] [place] [address] Type 2 diabetes mellitus with hyperglycemia (CMS-HCC) ([facility]) (Primary Dx) Social History Tobacco Use Types [...] No 04/25/2015 documented as of this encounter Plan of Treatment Upcoming Encounters Date Type Department Care Team (Late st Contact Info) Description 05/17/2024 13:00 EDT Office Visit [facility] Endocrinology - [address] [address] Twlya Mcclellan NP [address] [address] 08/30/2024 14:00 EST Office Visit [facility] Endocrinology - [address] [address] Twyla Mcclellan NP [address] [address] documented as of this encounter Procedures Procedure Name Priority Date/Time Associated Diagnosis Comments POCT HEMOGLOBIN A1C Routine 04/25/2015 1 0:40 EDT Type 2 diabetes mellitus with hyperglycemia ([facility]) ([facility]) documented in this encounter Results * (ABNORMAL) POCT HEMOGLOBIN A1C (04/25/2015 10:40 EDT) Hemoglobin A1c, POC 8.3(A) 5.7 % POINT OF CARE 04/25/2015 10:4 0 EDT Shanika Aquino NP POINT OF CARE TEST ORDERABLES POINT OF CARE documented in this encounter Visit Diagnoses Diagnosis Type 2 diabetes mellitus with hyperglycemia ([facility])- Primary Type II or unspecified type diabetes mellitus without mention of complication, not stated as uncontrolled documented in this encounter Care Teams Jitterbug Operator Relationship Specialty Start Date End Date Edmar Temple MD [address] [facility] [address] [address] [place] [address] PCP - General 11/21/13 documented as of this encounter
--- OUTSIDE RECORDS SUMMARY | 2024-04-22 04:27 | XMS_ITS | Encounter Summary ---
Author Organization [facility] Address [address] [place] [address] Care Team Providers Care Special Agent Secret Service Name Role Phone Edmar Temple MD Primary Care Provider [phone] Reason for Visit * Reason Comments Other Encounter Details Date Type Department Care Team (Late st Contact Info) Description 02/26/2018 Refill [facility] Endocrinology - [facility] [address] [place] [address] Shanika Aquino NP 62 [facility] [address] [place] [address] Other Social History Tobacco Use [...] No 10/19/2017 documented as of this encounter Ordered Prescriptions Prescription Sig Dispensed Refills Start Date End Da te insulin pen needles 31G x 3/16 (BD ULTRA-FINE MINI PEN NEEDLE) Use 2 pen needles as directed as needed for up to 90 days (for pump failure). Use as directed for pump failure 100 Each 2 02/28/2018 05/29/2018 documented in this encounter Plan of Treatment Upcoming Encounters Date Type Department Care Team (Late st Contact Info) Description 05/17/2024 13:00 EDT Office Visit [facility] Endocrinology - [address] [address] Twyla Mcclellan NP [address] [place] [phone] 08/30/2024 14:00 EST Office Visit [address] [address] Twyla Mcclellan NP [address] [place] [address] documented as of this encounter Visit Diagnoses Not on filedocumented in this encounter Care Teams Special Agent Secret Service Relationship Specialty Start Date End Date Edmar Temple MD [address] [place] [address] [address] [place] [phone] PCP - General 11/21/13 documented as of this encounter
--- OUTSIDE RECORDS SUMMARY | 2024-04-22 04:28 | XMS_ITS | Encounter Summary ---
Author Organization [facility] Address [address] [place] [address] Care Team Providers Care Wiener Packer Name Role Phone Edmar Temple MD Primary Care Provider [phone] Reason for Visit * Reason Comments Diabetes f/u Encounter Details Date Type Department Care Team (Latest Contact Info) Description 07/10/2014 11:20 EDT Office Visit [facility] Endocrinology - [facility] [address] [place] [address] Shanika Aquino NP 62 [facility] [address] [place] [address] Diabetes mellitus ([facility]) ([facility]) (Primary Dx) Social History Tobacco Use Types [...] Sign Reading Time Taken Comments Blood Pressure 123/82 07/10/2014 1119 EDT Pulse 83 07/10/2014 1119 EDT Temperature - - Respiratory Rate - - Oxygen Saturation - - Inhaled Oxygen Concentration - - Weight 113.4 kg (250 lb 0.2 oz) 07/10/2014 1119 EDT Height 169.2 cm (5' 6.61) 07/10/2014 1119 EDT Body Mass Index 39.62 07/10/2014 1119 EDT documented in this encounter Functional Status Cognitive Status Response Date of Assessm ent Because of a physical, menta l, or emotional condition, do you have serious difficulty concentrating, remembering, or making decisions? (5 years old or older) Yes 04/15/2011 documented as of this encounter Discharge Diagnoses Diagnosis 250.00 DIABETES UNCOMPL ADULT-TYPE II[ICD-9-CM] documented in this encounter Patient Instructions * Patient Instructions* Shanika Aquino ANP - 07/10/2014 11:45 EDT Add sensitivity factor at 7 PM of 30:1 overnite Adjust correction goal to 70- 125 Follow-up in 4 months. documented in this encounter Progress Notes * Shanika Aquino ANP - 07/10/2014 1133 EDT [facility] Diabetes Follow-Up Note CHIEF COMPLAINT: Kymberly Stewart presents in clinic today with: 1. Diabetes mellitus Diabetes PROGRESS/FOLLOWUP NOTE - 07/10/2014 PROBLEM: Hypothyroidism, [...] 320 and a loss of 61 pounds. At her last visit, I added luraglutide. Hemoglobin A1c was 8.1%, and today is down to 6.8%. In addition, she has lost 9 pounds.No GI complaints from the medication change. In the interim, she also saw her PCP recently who repeatedly labs, and started her on Simvastatin She takes metformin, luraglutide and continues on [...] stomach cramping. She detectsher hypoglycemia appropriately around 119, but that has not been a major problem. . Download of her pump shows she tests 3-4 times/day. She uses her bolus wizard to do. Most of her pump calculations. She eats mostly protein and some fat. Download of her meter shows she tests 3-4 times most days FBS- all in target Lunch 130 to low 200s D 63-180 HS - 114-257. However, some of these are only 2 hours postprandial. To lows tend to be over corrections of highs. Her first was with her son delivered [...] insulin glargine, insulin pen needles 31g x 5/16, levothyroxine, liraglutide, metformin, multivitamin, vitamin b complex, and vitamin e. The patient has experienced the following acute complications: hypoglycemia - mild-moderate and hyperglycemia - mild-moderate. History Substance Use Topics ??? Smoking status: Former Smoker Quit date: 09/26/2003 ??? Smokeless tobacco: Not on file ??? Alcohol Use: Yes Comment: social does not tolerate well since bariatric surgery PHYSICAL EXAMINATION: Vitals: BP 123/82 Pulse 83 Ht 169.2 cm (66.61) Wt 113.404 kg (250 lb 0.2 oz) BMI 39.61 kg/m2 LMP 06/27/2014 BMI: Body mass index is 39.61 kg/(m^2). On physical exam well developed morbidly obese woman in no acute distress. Heart and lung sound unremarkable with no carotid bruit. Neck supple without thyromegaly. No leg edema. LABS: Last done 12/25/16 at [facility]. Lab Results Component Value Date HGBA1C 8.1* 03/29/2014 ASSESSMENT/PLAN: Excellent response to luraglutide, losing weight, and improving glycemic control. She has her correction target, too tight at 110 , which I will adjust today. On a statin now. Lipid management deferred to PCP Blood pressure target. Not on an BLADE or ARB. 12/25 mircoalbumin uinremarkable On Levothyrozine - 12/25 TSH unremarkable 1. Diabetes mellitus Our office will provide ongoing management of this patients' diabetes with a hemoglobin A1C goal ofless than 7. We have instructed the patient to call us with blood sugar values. I would like you tocontinue to manage their blood pressure, lipids and other preventive care. Referred to diabetic education program. No Referred to content developer no Patient referred to eye care nurse rn for annual dilated eye exam. Up to date Lifestyle modifications: recommend losing weight Patient does demonstrate knowledge of diabetes and expectations. Patient does understand medication regimen. Barriers to adherence: Financial and Emotional. PLAN: Add sensitivity factor at 7 PM of 30:1 overnite Adjust correction goal to 70- 125 Follow-up in 4 months. BS 80-120 pre-meal and 2 hours after meal 160 or don't jump >60 Goals and plan to achieve these discussed. Systolic blood pressure less than 140. And diastolic blood pressure less than 80. Hemoglobin A1C less than 7%. LDL cholesterol: 70 to 99. HDL males >40 and females >50 mgm/dl Triglycerides fasting <150 mgm/dl JETT Yoon 07/10/2014 11:33 I spent a total of 25 minutes in face to face time with this patient, and 15 minutes of that time was spent in counseling and coordination of care as described in This progress note * Lulú Nash LPN - 07/10/2014 1119 EDT Fingerstick blood sample obtained for POCT Hemoglobin A1C performed for this DOS at the order of JUAN Herbert LPN 07/10/2014 11:19 documented in this encounter Plan of Treatment Upcoming Encounters Date Type Department Care Team (Late st Contact Info) Description 05/17/2024 13:00 EDT Office Visit [facility] Endocrinology [address] [address] Twyla Mcclellan NP [address] [place] [phone] 08/30/2024 14:00 EST Office Visit [address] [address] Twyla Mcclellan NP [address] [place] [phone] documented as of this encounter Procedures Procedure Name Priority Date/Time Associated Diagnosis Comments POCT HEMOGLOBIN A1C Routine 07/10/2014 1 1:55 EDT Diabetes mellitus ([facility]) ([facility]) documented in this encounter Results * (ABNORMAL) POCT HEMOGLOBIN A1C (07/10/2014 11:55 EDT) Hemoglobin A1c, POC 6.8(A) 5.7 POINT OF CARE 07/10/2014 11:5 5 EDT Shanika Aquino NP POINT OF CARE TEST ORDERABLES POINT OF CARE documented in this encounter Visit Diagnoses Diagnosis Diabetes mellitus ([facility])- Primary Type II or unspecified type diabetes mellitus without mention of complication, not stated as uncontrolled documented in this encounter Care Teams Wiener Packer Relationship Specialty Start Date End Date Edmar Temple MD [address] [place] [address] PCP - General 11/21/13 documented as of this encounter
--- OUTSIDE RECORDS SUMMARY | 2024-04-22 04:28 | XMS_ITS | Encounter Summary ---
Author Organization [facility] Address [address] [place] [address] Care Team Providers Care Gis Administrator Name Role Phone Phylicia Brown AVIATION MECHANIC Primary Care Provider Reason for Visit * Reason Comments Non-stress Test Type II DM Encounter Details Date Type Department Care Team (Late st Contact Info) Description 03/27/2011 13:00 EDT Nurse Only [facility] Obstetrics & Midwifery - [address] [address] Unknown, Provider, Nurse, Panchito Previous section; with other poor obstetric history; HTN (hypertension); Asthma; Hypothyroid; Diabetes (CMS-HCC) (HCC-CMS); Status post gastric bypass for obesity; Supervision of high-risk Social History Tobacco Use Types Packs/Day Years Used Date Smoking Tobacco: Former Cigarettes Q uit: 09/26/2003 Comments Yes Sex and Gender Information Value Date Recorded Sex Assigned at Not on file Gender Identity Not on file Sexual Orientation Not on file documented as of this encounter Progress Notes * Susi Powell MD - 03/27/2011 4685 EDT NST Report Baseline Heart Rate: 140 Accelerations: present Movement: present Decelerations: absent Contractions: rare Interpretation: reactive Susi Powell MD 03/27/2011 17:47 documented in this encounter Miscellaneous Notes * Scanned Note-Null - Marc, Rehabilitation Therapist - 03/30/2011 1006 EDT documented in this encounter Plan of Treatment Upcoming Encounters Date Type Department Care Team (Late st Contact Info) Description 05/17/2024 13:00 EDT Office Visit [facility] Endocrinology - [address] [address] Twyla Mcclellan NP [address] [place] [phone] 08/30/2024 14:00 EST Office Visit [address] [address] Twyla Mcclellan NP [address] [place] [phone] documented as of this encounter Visit Diagnoses Diagnosis Previous section Other postprocedural status with other poor obstetric history(V23.49) with other poor obstetric history HTN (hypertension) Unspecified essential hypertension Asthma Unspecified asthma Hypothyroid Unspecified hypothyroidism Diabetes ([facility]) Type II or unspecified type diabetes mellitus without mention of complication, not stated as uncontrolled Status post gastric bypass for obesity Bariatric surgery status Supervision of high-risk Unspecified high-risk documented in this encounter Care Teams Gis Administrator Relationship Specialty Start Date End Date Phylicia Brown NP [address] [place] [address] PCP - General 09/19/10 11/20/13 documented as of this encounter
--- OUTSIDE RECORDS SUMMARY | 2024-04-22 04:28 | XMS_ITS | Encounter Summary ---
Author Organization [facility] Address [address] [place] [address] Care Team Providers Care Weaver [employer] Name Role Phone Phylicia Brown SACHIN Primary Care Provider Reason for Visit * Reason Onset Date Comments Medications Refill 03/29/2013 Encounter Details Date Type Department Care Team (Late st Contact Info) Description 03/29/2013 Refill [facility] Dermatology 3rd Floor [address] [phone] Romi Combs MD [address] [place] [address], [facility] [address] [place] [address] Medications Refill Social History Tobacco Use Types [...] Dispensed Refills Start Date End Da te valACYclovir (VALTREX) 1 g tablet Take 1 Tab by mouth 2 times daily for 7 days. 14 Each 0 03/29/2013 04/05/2013 documented in this encounter Miscellaneous Notes * Telephone Encounter - Minerva Tran - 03/29/2013 1334 EDT DX: HSV * Telephone Encounter - Tiara Tejada - 03/29/2013 1325 EDT Bianca patient. documented in this encounter Plan of Treatment Upcoming Encounters Date Type Department Care Team (Late st Contact Info) Description 05/17/2024 13:00 EDT Office Visit [facility] Endocrinology - [address] [phone] Twyla Mcclellan NP [address] [place] [phone] 08/30/2024 14:00 EST Office Visit [facility] [place] [address] [address] Twyla Mcclellan NP [address] [place] [phone] documented as of this encounter Visit Diagnoses Not on filedocumented in this encounter Care Teams [employer] Relationship Specialty Start Date End Date Phylicia Brown NP [address] [place] [address] PCP - General 09/19/10 11/20/13 documented as of this encounter
--- OUTSIDE RECORDS SUMMARY | 2024-04-22 04:28 | XMS_ITS | Encounter Summary ---
Author Organization [facility] Address [address] [place] [address] Care Team Providers Care Fitter Machinist Name Role Phone Edmar Temple MD Primary Care Provider [phone] Reason for Visit * Reason Onset Date Comments Prior Auth, Medication 01/08/2014 Encounter Details Date Type Department Care Team (Late st Contact Info) Description 01/08/2014 Telephone [facility] Endocrinology - [place] [address] [place] [address] Shanika Aquino NP [address] [facility] [address] [place] [address] Prior Auth, Medication Social History [...] Yes 04/15/2011 documented as of this encounter Miscellaneous Notes * Telephone Encounter - Wendy Silva - 01/09/2014 3400 EDT PA's for this type of MDE are not done here. Pt should contact the [employer] pod company LMOM for pt * Telephone Encounter - Zunilda Valdovinos V. - 01/08/2014 1156 EDT Patient calling to follow up on [employer] PA status documented in this encounter Plan of Treatment Upcoming Encounters Date Type Department Care Team (Late st Contact Info) Description 05/17/2024 13:00 EDT Office Visit [facility] Endocrinology - [address] [address] Twyla Mcclellan NP [address] [place] [phone] 08/30/2024 14:00 EST Office Visit [facility] Endocrinology - [address] [phone] Twyla Mcclellan NP [address] [place] [phone] documented as of this encounter Visit Diagnoses Not on filedocumented in this encounter Care Teams Fitter Machinist Relationship Specialty Start Date End Date Edmar Temple MD [address] [place] [address] [address] [place] [phone] PCP - General 11/21/13 documented as of this encounter
--- OUTSIDE RECORDS SUMMARY | 2024-04-22 04:28 | XMS_ITS | Encounter Summary ---
Author Organization [facility] Address [address] [place] [address] Care Team Providers Care Universal Banker Name Role Phone Edmar Temple MD Primary Care Provider [phone] Reason for Visit * Reason Comments Diabetes Encounter Details Date Type Department Care Team (Late st Contact Info) Description 12/20/2013 9:00 EDT Nutrition [facility] Endocrinology - [address] [address] Thompson Yost Diabetes mellitus (CMS-HCC) ([facility]) (Primary Dx) Social History Tobacco Use Types [...] Sign Reading Time Taken Comments Blood Pressure 132/78 12/20/2013 0845 EDT Pulse 84 12/20/2013 0845 EDT Temperature - - Respiratory Rate - - Oxygen Saturation - - Inhaled Oxygen Concentration - - Weight 111.6 kg (246 lb) 12/20/2013 0845 EDT Height 169.2 cm (5' 6.61) 12/20/2013 0845 EDT Body Mass Index 38.98 12/20/2013 0845 EDT documented in this encounter Functional Status Cognitive Status Response Date of Assessm ent Because of a physical, menta l, or emotional condition, do you have serious difficulty concentrating, remembering, or making decisions? (5 years old or older) Yes 04/15/2011 documented as of this encounter Progress Notes * Ac Yostisten - 12/20/2013 1031 EDT ENDOCRINOLOGY AND DIABETES DIABETES SELF MANAGEMENT PUMP FOLLOW UP NOTE Referred by: JUAN Alvares DOS: 12/20/13 Pump model: Medtronic 722 Infusion set: Sof-set Insulin: Novolog Meter:One Touch Kymberly is here for pump follow up appointment and to establish care with CDE team. She has been using an insulin pump since 2004 to the present with a small break of 2 years in between. She had gastric bypass surgery without any complications in 2008. She has an annual follow up with the bariatric group. She has two children and a new job that requires a lot of travel within the state. Basal rates: (52.1 units/day) time rate 00 1.7 6:00 2.2 13:00 2.5 19:00 2.3 Carb ratios: time ratio 00 10 Correction ratios: time ratio 00 10 Target: time Target range 00 75-100 Active insulin 3 hours Hypoglycemia: less frequent episodes Blood sugar assessment: fasting numbers are more in target: 106-161 past 2 weeks; midday: 96-221 (most readings low 100s); evenin-363 (most readings high 100s; few readings this time of day) Adherence to monitoring: yes Adherence to dosing: yes-using bolus wizard Adherence to hyperglycemia protocol: yes Emergency Supplies: Rapid Acting pens Basal insulin_x Syringes/pen needles____x____carries extra pump supplies _x Changing sites every _3__ days Site assessment: no issues_ Correct time confirmed on pump__yes Assessment: Kymberly is a very pleasant 38 yo female with type 2 diabetes on an insulin pump x 7 years. Because of her gastric bypass surgery, her appetite and eating habits have changed greatly and she benefits from the features of the pump like extended bolus, basal rate variability and temp basal. Her current pump is out of warranty and she has opted for a tubeless, waterproof pump as she spends a lot of time in the water. Paperwork was faxed today. Her A1c has decreased from 10.7% in September to 9.1% today, but her most recent numbers would suggest an even lower A1c next time so she is making good progress. Plan: No changes today Basal rates: (52.1 units/day) time rate 00 1.7 6:00 2.2 13:00 2.5 19:00 2.3 Carb ratios: time ratio 00 10 Correction ratios: time ratio 00 10 Target: time Target range 00 75-100 Active insulin 3 hours Follow up: Pt to call for insulin pump training when she receives her new pump. No barriers to education noted. Pt verbalized understanding Time spent with patient: 60 minutes. ICD-9: 250.00 * Judy Holland - 12/20/2013 0930 EDT Fingerstick blood sample obtained for POCT A1C for hemoglobin performed for this date of service atthe order of Dr. Cee Watts documented in this encounter Miscellaneous Notes * Addendum Note - Thompson Yost - 12/20/2013 1134 EDTAddended by: THOMPSON YOST on: 12/20/2013 11:34 Modules accepted: Level of Service documented in this encounter Plan of Treatment Upcoming Encounters Date Type Department Care Team (Late st Contact Info) Description 05/17/2024 13:00 EDT Office Visit [facility] Endocrinology - [address] [address] Twyla Mcclellan NP [address] [place] [phone] 08/30/2024 14:00 EST Office Visit [facility] Endocrinology [address] [phone] Twyla Mcclellan NP [address] [place] [phone] documented as of this encounter Procedures Procedure Name Priority Date/Time Associated Diagnosis Comments POCT HEMOGLOBIN A1C Routine 12/20/2013 9 :27 EDT Diabetes mellitus ([facility]) ([facility]) documented in this encounter Results * (ABNORMAL) POCT HEMOGLOBIN A1C (12/20/2013 9:27 EDT) Hemoglobin A1c, POC 9.1(A) 5.7 POINT OF CARE 12/20/2013 9:27 EDT Shanika Aquino NP POINT OF CARE TEST ORDERABLES POINT OF CARE documented in this encounter Visit Diagnoses Diagnosis Diabetes mellitus ([facility])- Primary Type II or unspecified type diabetes mellitus without mention of complication, not stated as uncontrolled documented in this encounter Historical Medications * This list may reflect changes made after this encounter. Medication Sig Dispensed Refills Start Date End Date insulin aspart (NOVOLOG) 100 unit/mL injectionIndications:Di abetes mellitus ([facility]) Inject into the skin Via medtronic mini med pump . 03/14/2014 added in this encounter Orders Lab Orders Without Results Count Last Ordered D ate First Ordered Date ALBUMIN, URINE 1 12/20/2013 TSH 1 12/20/2013 documented in this encounter Care Teams Universal Banker Relationship Specialty Start Date End Date Edmar Temple MD [facility] [employer] [address] [place] [phone] PCP - General 11/21/13 documented as of this encounter
--- OUTSIDE RECORDS SUMMARY | 2024-04-22 04:28 | XMS_ITS | Encounter Summary ---
Author Organization [facility] Address [address] [place] [address] Care Team Providers Care Technology Internship Name Role Phone Phylicia Brown SACHIN Primary Care Provider Encounter Details Date Type Department Care Team (Late st Contact Info) Description 11/16/2012 Results Only [facility] Dermatology 5th Floor [address] [phone] Devin Garza MD [address] [place] [address], [address] [place] [address] Social History Tobacco Use Types Packs/Day Years [...] as of this encounter Progress Notes * Naren Fong - 11/21/2012 0903 ESTQuick Note: Spoke to patient at length. She is improving on Valtrex. NAREN FONG MD documented in this encounter Plan of Treatment Upcoming Encounters Date Type Department Care Team (Late st Contact Info) Description 05/17/2024 13:00 EDT Office Visit [facility] Endocrinology - [facility] [address] [place] [address] Twyla Mcclellan NP [address] [facility] [address] [place] [phone] 08/30/2024 14:00 EST Office Visit [facility] [address] [place] [address] Twyla Mcclellan NP [address] [phone] documented as of this encounter Procedures Procedure Name Priority Date/Time Associated Diagnosis Comments SURGICAL PATHOLOGY Routine 11/16/2012 20 :48 EST documented in this encounter Results * SURGICAL PATHOLOGY (11/16/2012 20:48 EST) Pathology Report: SURGICAL PATHOLOGY REPORT Reports generated via electronic interface contain original data; however they are lacking the format of the original report. Caution should be taken when reading/interpreting unformatted reports. Name: ? DAGO STEWARTBERDMITRIY Wheat ? Accession #: ? [id number] ? : ? 1975 (Age: 37) ??F ? Collect Date: ? 11/16/2012 ? Location: ? [facility] ? Receive Date: ? 11/16/2012 ? Provider: DEVIN GARZA MD Copy to: NAREN FONG MD ? Final Pathologic Diagnosis: ? 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 ??See microscopic and comment. Comment: ? The histologic features are those of Herpes virus infection. Correlation with the concurrent microbiology specimen is recommended. These results were phoned to Dr. Palmer. ??(Dr. Hong)/[facility] Microscopic Description: ? Sections consist of a punch biopsy of skin. ??There is central acantholysis with ballooning degeneration and neutrophils. ??The individual keratinocytes show margination of the chromatin with multinucleation and molding of the nuclei. The dermis shows a dense lymphomononuclear infiltrate. (Dr. Hong)/[facility] Document reviewed and electronically signed by: NAREN HONG MD Report ??Date: 11/18/2012 08:58 By the signature above, the attending physician certifies that he/she has personally conducted a gross and/or microscopic examination of the described specimens and rendered or confirmed the above diagnosis. Specimen(s) Received: ? Mons-HSV vs folliculitis Clinical History: ? 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 Received in formalin labelled Linda Stewart is an ovoid punch biopsy of trejo skin measuring 0.4 x 0.3 cm in diameter and 0.4 cm in thickness. ??The specimen is submitted intact as (1). ??(Carey Cat)/[facility] End of Report [facility] 11/16/2012 20:4 8 EST 11/16/2012 20:48 EST Devin Garza MD PATHOLOGY [facility] [address] [place] [address] documented in this encounter Visit Diagnoses Not on filedocumented in this encounter Care Teams Technology Internship Relationship Specialty Start Date End Date Phylicia Brown NP [address] [place] [address] PCP - General 09/19/10 11/20/13 documented as of this encounter
--- OUTSIDE RECORDS SUMMARY | 2024-04-22 04:28 | XMS_ITS | Encounter Summary ---
Author Organization [facility] Address [address] [place] [address] Care Team Providers Care Bobbin Winder Name Role Phone Stephanie Maria De Jesus JUTE BAG SEWER Primary Care Provider Encounter Details Date Type Department Care Team (Late st Contact Info) Description 04/14/2011 Results Only [facility] Obstetrics & Midwifery - [address] [phone] Hemant Powell MD [address] [place] [address], [address] [place] [phone] Social History Tobacco Use Types Packs/Day Years Used Date Smoking Tobacco: Former Cigarettes Q uit: 09/26/2003 Sex and Gender Information Value Date Recorded Sex Assigned at Not on file Gender Identity Not on file Sexual Orientation Not on file documented as of this encounter Plan of Treatment Upcoming Encounters Date Type Department Care Team (Late st Contact Info) Description 05/17/2024 13:00 EDT Office Visit [facility] Endocrinology - [address] [address] Twyla Mcclellan NP [address] [place] [phone] 08/30/2024 14:00 EST Office Visit [facility] Endocrinology - [address] [phone] Twyla Mcclellan, JUTE BAG SEWER [address] [facility] [address] [place] [phone] documented as of this encounter Procedures Procedure Name Priority Date/Time Associated Diagnosis Comments SURGICAL PATHOLOGY Routine 04/14/2011 0:00 EDT documented in this encounter Results * SURGICAL PATHOLOGY (04/14/2011 0:00 EDT) Pathology Report: SURGICAL PATHOLOGY REPORT ? Reports generated via electronic interface contain original data; ? however they are lacking the format of the original report. ? Caution should be taken when reading/interpreti ng unformatted reports. ? Name: ? LINDA STEWART ? Accession #: ? [id number] ? : ? 1975 (Age: 36) ??F ? Collect Date: ? 04/14/2011 ? Location: ? SB05 ? Receive Date: ? 04/15/2011 ? Provider: HEMANT C POWELL MD ? Copy to: MARIA DE JESUS AV[facility] JUTE BAG SEWER ? MATILDE CAPELESS MD ? COLUMBA W DYSON MD ? RAFAEL J GAROL MD ? Final Pathologic Diagnosis: ? A. ?Fallopian tube, left segment, partial salpingectomy: ? 1. ?Full cross section of fallopian tube; no pathologic features. ? B. ?Fallopian tube, right segment, partial salpingectomy: ? 1. ?Full cross section of fallopian tube. ? 2. ? Focal endometriosis with decidualized stroma. ? Document reviewed and electronically signed by: ? CATY SKY MD ? Report ??Date: 04/16/2011 14:40 ? By the signature above, the attending physician certifies that he/she has ? personally conducted a gross and/or microscopic examination of the described ? specimens and rendered or confirmed the above diagnosis. ? Specimen(s) Received: ? A. ?Left section of tube ? B. ? Right section of tube ? Clinical History: ? at 37+2 ? Gross Description: ? Received in normal saline labelled Linda Stewart and L fallopian tube segment is a 0.7 cm in length by 0.9 cm in diameter short tubular segment of ?? tissue, with a pinpoint lumen. ??[employer] sales representative cross section is submitted as (A). ? Received in normal saline labelled Linda Stewart and R fallopian tube ? segment is a 0.8 cm in length by 0.8 cm in diameter short tubular segment of ?? tissue, with a pinpoint lumen. ??[employer] sales representative cross section is submitted as (B). ??(Lucy Batista)/luciano ? End of Report ? [facility] 04/14/2011 04/15/2011 8:1 1 EDT Hemant Powell MD PATHOLOGY ORDERABLES [facility] [address] [place] [address] documented in this encounter Visit Diagnoses Not on filedocumented in this encounter Care Teams Bobbin Winder Relationship Specialty Start Date End Date Maria De Jesus Brown NP [address] [place] [address] PCP - General 09/19/10 11/20/13 documented as of this encounter
--- OUTSIDE RECORDS SUMMARY | 2024-04-22 04:28 | XMS_ITS | Encounter Summary ---
Author Organization [facility] Address [address] [place] [address] Care Team Providers Care Hooker On Name Role Phone CodyAllPhylicia SACHIN Primary Care Provider Reason for Visit * Reason Onset Date Comments Follow-up 07/04/2012 Encounter Details Date Type Department Care Team (Late st Contact Info) Description 07/04/2012 Orders Only [facility] Bariatric Surgery [address] [address] Lizzie Duong, HARPREET [address] [place] [address] Other and unspecified postsurgical nonabsorption; S/P gastric bypass; Secondary hyperparathyroidism (CMS-HCC) ([facility]) Social History Tobacco Use Types Packs/Day Years [...] as of this encounter Progress Notes * Lizzie Duong - 07/04/2012 1318 EDT Per Kimberley VELAZQUEZ, labs ordered. External lab slip faxed per pt request. Lizzie Duong RN documented in this encounter Plan of Treatment Upcoming Encounters Date Type Department Care Team (Late st Contact Info) Description 05/17/2024 13:00 EDT Office Visit [facility] Endocrinology - [address] [phone] Twyla Mcclellan NP [address] [place] [phone] 08/30/2024 14:00 EST Office Visit [facility] Endocrinology - [address] [address] Twyla Mcclellan NP [address] [place] [phone] documented as of this encounter Visit Diagnoses Diagnosis Other and unspecified postsurgical nonabsorption S/P gastric bypass Bariatric surgery status Secondary hyperparathyroidism ([facility]) Secondary hyperparathyroidism (of renal origin) documented in this encounter Care Teams Hooker On Relationship Specialty Start Date End Date Phylicia Brown NP [address] [place] [address] PCP - General 09/19/10 11/20/13 documented as of this encounter
--- OUTSIDE RECORDS SUMMARY | 2024-04-22 04:28 | XMS_ITS | Encounter Summary ---
Author Organization [facility] Address [address] [place] [address] Care Team Providers Care Economic Specialist Name Role Phone Edmar Temple MD Primary Care Provider [phone] Reason for Visit * Reason Onset Date Comments Medications Refill 01/23/2014 Encounter Details Date Type Department Care Team (Late st Contact Info) Description 01/23/[address] [address] Laurie Singh RN CDE Medications Refill Social History Tobacco Use Types [...] Da te blood glucose (FREESTYLE TEST) test strips Use 8-10 Strips as directed daily. 900 Each 3 01/23/2014 11/07/2014 documented in this encounter Plan of Treatment Upcoming Encounters Date Type Department Care Team (Late st Contact Info) Description 05/17/2024 13:00 EDT Office Visit [address] [place] [address] Twyla Mcclellan NP [address] [phone] 08/30/2024 14:00 EST Office Visit [facility] Endocrinology - [address] [address] Twyla Mcclellan NP [address] [place] [phone] documented as of this encounter Visit Diagnoses Not on filedocumented in this encounter Care Teams Economic Specialist Relationship Specialty Start Date End Date Edmar Temple MD [address] [place] [address] [address] [place] [phone] PCP - General 11/21/13 documented as of this encounter
--- OUTSIDE RECORDS SUMMARY | 2024-04-22 04:28 | XMS_ITS | Encounter Summary ---
Author Organization [facility] Address [address] [place] [address] Care Team Providers Care Insurance Follow Up Representative Name Role Phone Phylicia Brown SACHIN Primary Care Provider Reason for Visit * Reason Onset Date Comments Biopsy Results 11/17/2012 Encounter Details Date Type Department Care Team (Late st Contact Info) Description 11/17/2012 Telephone [facility] Dermatology 3rd Floor [address] [phone] Dedra Palmer MD Biopsy Results Social History Tobacco Use Types Packs/Day Years [...] encounter Miscellaneous Notes * Telephone Encounter - Dedra Palmer MD - 11/17/2012 4727 EST Called patient to inform her that 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 The biopsy results from 11/16/12 were also consistent with this diagnosis, as Dr. Yang and Dr. Espinoza suspected on clinical exam. The patient was expecting this news following her discussion with Dr. Yang in clinic yesterday. She is currently on Valtrex 1 g TID day 1 of 7. She was encouraged to continue this treatment. She will call if the eruption fails to resolve. Dedra Palmer MD 11/17/2012 17:17 documented in this encounter Plan of Treatment Upcoming Encounters Date Type Department Care Team (Late st Contact Info) Description 05/17/2024 13:[address] [facility] Endocrinology - [address] [phone] Twyla Mcclellan NP [address] [place] [phone] 08/30/2024 14:[address] [facility] Endocrinology - [address] [address] Twyla Mcclellan NP [address] [place] [phone] documented as of this encounter Visit Diagnoses Not on filedocumented in this encounter Care Teams Insurance Follow Up Representative Relationship Specialty Start Date End Date Phylicia Brown NP [address] [place] [address] PCP - General 09/19/10 11/20/13 documented as of this encounter
--- OUTSIDE RECORDS SUMMARY | 2024-04-22 04:28 | XMS_ITS | Encounter Summary ---
Author Organization [facility] Address [address] [place] [address] Care Team Providers Care Principal Technologist Name Role Phone Edmar Temple MD Primary Care Provider [phone] Reason for Visit * Reason Onset Date Comments Diabetes 02/23/2014 Encounter Details Date Type Department Care Team (Late st Contact Info) Description 02/23/2014 Telephone [facility] Endocrinology - [address] [phone] Genoveva Yost Diabetes Social History Tobacco Use Types Packs/Day Years [...] encounter Miscellaneous Notes * Telephone Encounter - Genoveva Yost - 02/23/2014 1501 EDT Images from the original note were not included. Spoke with Miguelina: Suggested no changes to her pump settings-overall bg look fairly decent. She will call if needed before her next appt with Lazara on 03/29/14. Pt verbalized understanding. No barriers. documented in this encounter Plan of Treatment Upcoming Encounters Date Type Department Care Team (Late st Contact Info) Description 05/17/2024 13:00 EDT Office Visit [facility] Endocrinology - [address] [phone] Twyla Mcclellan NP [address] [place] [phone] 08/30/2024 14:00 EST Office Visit [address] [address] Twyla Mcclellan NP [address] [place] [phone] documented as of this encounter Visit Diagnoses Not on filedocumented in this encounter Care Teams Principal Technologist Relationship Specialty Start Date End Date Edmar Temple MD [address] [place] [address] [address] [place] [id number] PCP - General 11/21/13 documented as of this encounter
--- OUTSIDE RECORDS SUMMARY | 2024-04-22 04:28 | XMS_ITS | Encounter Summary ---
Author Organization [facility] Address [address] [place] [address] Care Team Providers Care Geothermal Production Manager Name Role Phone Phylicia Brown SACHIN Primary Care Provider Reason for Visit * Reason Comments Non-stress Test Type II DM Encounter Details Date Type Department Care Team (Late st Contact Info) Description 04/03/2011 13:00 EDT Nurse Only [facility] Obstetrics & Midwifery - [address] [phone] Viet Vann MD [address] [place] [address], [address] [place] [phone] Nurse, Panchito Previous section; with other poor obstetric history; HTN (hypertension); Asthma; Hypothyroid; Diabetes (CMS-HCC) ([facility]); Status post gastric bypass for obesity; Supervision of high-risk Social History Tobacco Use Types Packs/Day Years Used Date Smoking Tobacco: Former Cigarettes Q uit: 09/26/2003 Comments Yes Sex and Gender Information Value Date Recorded Sex Assigned at Not on file Gender Identity Not on file Sexual Orientation Not on file documented as of this encounter Miscellaneous Notes * Scanned Note-Null - Marc, Surgical Resident - 04/06/2011 1203 EDT documented in this encounter Plan of Treatment Upcoming Encounters Date Type Department Care Team (Late st Contact Info) Description 05/17/2024 13:00 EDT Office Visit [facility] Endocrinology - [facility] [address] [place], [place] [phone] Twyla Mcclellan NP [address] [place] [phone] 08/30/2024 14:00 EST Office Visit [facility] Endocrinology - [address] [address] Twyla Mcclellan NP [address] [place] [phone] documented as of this encounter Visit Diagnoses Diagnosis Previous section Other postprocedural status with other poor obstetric history(V23.49) with other poor obstetric history HTN (hypertension) Unspecified essential hypertension Asthma Unspecified asthma Hypothyroid Unspecified hypothyroidism Diabetes ([facility]) Type II or unspecified type diabetes mellitus without mention of complication, not stated as uncontrolled Status post gastric bypass for obesity Bariatric surgery status Supervision of high-risk Unspecified high-risk documented in this encounter Care Teams Geothermal Production Manager Relationship Specialty Start Date End Date Phylicia Brown NP [address] [place] [address] PCP - General 09/19/10 11/20/13 documented as of this encounter
--- OUTSIDE RECORDS SUMMARY | 2024-04-22 04:28 | XMS_ITS | Encounter Summary ---
Author Organization [facility] Address [address] [place] [address] Care Team Providers Care Vmware Consultant Name Role Phone Edmar Temple MD Primary Care Provider Reason for Referral * Consult (Routine/Next Available) - Closed Specialty Diagnoses / Procedures Referred By Jose hawkins Referred To Contact Nutrition Diagnoses Diabetes mellitus ([facility]) Shanika Jacobs NP [address] [place] [phone] [facility] Nutrition [address] [place] [address] [place] [address] Referral ID Status Reason Start Date Expiration Date V isits Requested Visits Authorized [id number] Closed Specialty Services Required 11/22/2013 1 1 Question Answer Reason for Request: Pump up[grade , type 2 diabetes on Medtronic pump, s/p gastric bypass Comments Sonia Yost Reason for Visit * Reason Comments Diabetes Encounter Details Date Type Department Care Team (Latest Contact Info) Description 11/22/2013 9:20 EST Office Visit [facility] Endocrinology - [address] [address] Shanika Jacobs NP [address] [place] [address] [place] [phone] Hypothyroidism (Primary Dx); Diabetes mellitus (CMS-HCC) (HCC-CMS) Social History Tobacco Use Types Packs/Day [...] Sign Reading Time Taken Comments Blood Pressure 152/80 11/22/2013912 EST Pulse 56 11/22/2013912 EST Temperature - - Respiratory Rate - - Oxygen Saturation - - Inhaled Oxygen Concentration - - Weight 108.3 kg (238 lb 11.2 oz) 11/22/2013912 EST Height 169.2 cm (5' 6.61) 11/22/2013912 EST Body Mass Index 37.82 11/22/2013912 EST documented in this encounter Functional Status Cognitive Status Response Date of Assessm ent Because of a physical, menta l, or emotional condition, do you have serious difficulty concentrating, remembering, or making decisions? (5 years old or older) Yes 04/15/2011 documented as of this encounter Discharge Diagnoses Diagnosis 244.9 HYPOTHYROIDISM NOS[ICD-9-CM] 250.00 DIABETES UNCOMPL ADULT-TYPE II[ICD-9-CM] documented in this encounter Patient Instructions * Patient Instructions* Shanika Jacobs ANP - 11/22/2013 10:26 EST No changes Use bolus Wizard Test blood sugars before Meals and bed Referral to RD for pump upgrade Bring food records Labs if not done at [facility] tsh , urine microalbumin and lipids. documented in this encounter Ordered Prescriptions Prescription Sig Dispensed Refills Start Date End Da te insulin pen needles 31G x 5/16 Use as directed daily. 100 Each 1 11/22/2013 03/29/2014 insulin glargine (LANTUS SOLOSTAR) 100 unit/mL (3 mL) injection pen Inject 70 Units into the skin at bedtime Pump back up hold to file. 1 Box 3 11/22/2013 11/07/2014 levothyroxine (SYNTHROID) 25 mcg tabletIndications:Hypoth yroidism,Diabetes mellitus (HCC-CMS) Take 1 Tab by mouth daily. 90 Tab 3 11/22/2013 11/07/2014 metFORMIN (GLUCOPHAGE) 1,000 mg tabletIndications:Hypoth yroidism,Diabetes mellitus (HCC-CMS) Take 1 Tab by mouth 2 times daily. 180 Tab 3 11/22/2013 11/07/2014 documented in this encounter Progress Notes * Shanika Jacobs ANP - 11/22/2013 0943 EST [facility] Diabetes Follow-Up Note CHIEF COMPLAINT: Kymberly Stewart presents in clinic today with: No diagnosis found. HPI PROGRESS/FOLLOWUP NOTE - 11/13/2010 PROBLEM: Hypothyroidism, hypertension, sleep apnea, status post gastric bypass, type 2 diabetes controlled on pump therapy, asthma, dyslipidemia. ALLERGIES: She has no known drug allergies. SUBJECTIVE: Kymberly is a 38-year-old woman with type 2 diabetes seen by me last 3 years ago.. She was seen by JETT Yuen for her diabetes as a rule who I understand is not seeing patients. She is here in part because her pump needs replacement. She also need medication adjustment and complication surveillance. She had gastric bypass surgery in July of 2009. Her highest weight was 320 and now is 238. She takes metformin and continues on insulin pump therapy. She uses a Medtronic insulin pump Midnight is 1.2, 4:00 a.m. is 1.4, 8:00 a.m. is 0.8, 6:00 p.m. is 0.8. Carb to insulin ratio is 12:1. Sensitivity is 20:1 . She denies chest pain, shortness of breath, [...] . Download of her pump shows she boluses 0-2 times a day. Usually manual boluses for food. She attributes this to grazing because of her surgery.meter She reports a CHO intake of <70 grams/day. She eats mostly protein and some fat, Her total daily insulin is 68 units with 49 49 units or 71% as basal. There are only 4 blood sugars ranging 190-400. Her first was with her son delivered [...] d3), citalopram, cyanocobalamin (vitamin b-12), ferrous fumarate, levothyroxine, metformin, multivitamin, vitamin b complex, and vitamin e. The patient has experienced the following acute complications: hypoglycemia - mild-moderate and hyperglycemia - mild-moderate. History Substance Use Topics ??? Smoking status: Former Smoker Quit date: 09/26/2003 ??? Smokeless tobacco: Not on file ??? Alcohol Use: Yes Comment: social does not tolerate well since bariatric surgery PHYSICAL EXAMINATION: Vitals: BP 152/80 Pulse 56 Ht 169.2 cm (66.61) Wt 108.274 kg (238 lb 11.2 oz) BMI 37.82 kg/m2 LMP 10/25/2013 BMI: Body mass index is 37.82 kg/(m^2). On physical exam well developed morbidly obese woman in no acute distress. Heart and lung sound unremarkable with no carotid bruit. Neck supple without thyromegaly. No leg edema. LABS: Lab Results Component Value Date HGBA1C 8.6 07/25/2009 No results found for this basename: CHOL, HDL, LDLBASE, TRIG, CHOLHDL Lab Results Component Value Date BUN 10 11/08/2009 CREATININE 0.70 04/14/2011 NA 140 11/08/2009 K 4.4 11/08/2009 Lab Results Component Value Date ALT 16 04/14/2011 Lab Results Component Value Date LABALBU 4.5 11/08/2009 UCREA 252.1 11/08/2009 MICRALBCRRAT 7.1 11/08/2009 ASSESSMENT/PLAN: Poor glycemic control in morbidly obese woman with type 2 diabetes, Needs to step up efforts at testing and entering data in pump as well as use bolus wizard. Hypotensive today She is not on an BLADE or ARB. No microalbumin available Not on a statin no lipid panel found On Levothyrozine - no TSH found No diagnosis found. Our office will provide ongoing management of this patients' diabetes with a hemoglobin A1C goal ofless than 7. We have instructed the patient to call us with blood sugar values. I would like you tocontinue to manage their blood pressure, lipids and other preventive care. .Referred to diabetic education program. Referred to vocational nursing instructor yes . Patient referred to eye career services coordinator for annual dilated eye exam. Lifestyle modifications: recommend losing weight Patient does demonstrate knowledge of diabetes and expectations. Patient does understand medication regimen. Barriers to adherence: Financial and Emotional. PLAN: No changes Use bolus Wizard Test blood sugars before Meals and bed Referral to RD for pump upgrade Bring food records Labs if not done at [facility] tsh , urine microalbumin and lipids. Goals and plan to achieve these discussed. Systolic blood pressure less than 140. And diastolic blood pressure less than 80. Hemoglobin A1C less than 7%. LDL cholesterol: 70 to 99. HDL males >40 and females >50 mgm/dl Triglycerides fasting <150 mgm/dl JETT Yoon 11/22/2013 9:43 I spent a total of 40 minutes in face to face time with this patient, and 25 minutes of that time was spent in counseling and coordination of care as described in This progress note * Shanika Jacobs ANP - 11/22/2013 0941 EST Note dictated documented in this encounter Miscellaneous Notes * Addendum Note - Shanika Jacobs ANP - 12/20/2013 1004 EDTAddended by: SHANIKA JACOBS on: 12/20/2013 10:04 Modules accepted: Orders documented in this encounter Plan of Treatment Upcoming Encounters Date Type Department Care Team (Late st Contact Info) Description 05/17/2024 13:00 EDT Office Visit [facility] Endocrinology - [address] [address] Twyla Mcclellan NP [address] [place] [phone] 08/30/2024 14:00 EST Office Visit [facility] Endocrinology - [address] [address] Twyla Mcclellan NP [address] [phone] Scheduled Referrals Name Type Priority Associated Diagnoses Orde r Schedule AMB CONSULT NUTRITION Outpatient Referral Routine Diabetes mellitus ([facility]) ([facility]) Ordered: 11/22/2013 documented as of this encounter Visit Diagnoses Diagnosis Hypothyroidism- Primary Unspecified hypothyroidism Diabetes mellitus ([facility]) Type II or unspecified type diabetes mellitus without mention of complication, not stated as uncontrolled documented in this encounter Discontinued Medications Medication Sig Discontinue Reason Start Date End Da te levothyroxine (SYNTHROID) 25 mcg tablet Take 25 mcg by mouth daily. Duplicate Therapy 11/22/2013 metformin (GLUCOPHAGE) 500 mg tabletIndications:S/P gastric bypass,Postresectional malabsorption syndrome,DM type 2 (diabetes mellitus, type 2) ([facility]),Morbid obesity ([facility]),Hypothyroid Take 1,000 mg by mouth 2 times daily with meals. Duplicate Therapy 11/22/2013 documented as of this encounter Historical Medications * This list may reflect changes made after this encounter. Medication Sig Dispensed Refills Start Date End Date vitamin E 400 unit capsuleIndications:Hypoth yroidism,Diabetes mellitus ([facility]) Take 1 Capsule by mouth daily. added in this encounter Orders Lab Orders Without Results Count Last Ordered D ate First Ordered Date LIPID PROFILE (INCLUDES CHOL ESTEROL, TRIGLYCERIDES, HDL, LDL) 1 12/20/2013 documented in this encounter Care Teams Vmware Consultant Relationship Specialty Start Date End Date Edmar Temple MD [address] [place] [address] [address] [place] [address] PCP - General 11/21/13 documented as of this encounter
--- OUTSIDE RECORDS SUMMARY | 2024-04-22 04:28 | XMS_ITS | Encounter Summary ---
Author Organization [facility] Address [address] [place] [address] Care Team Providers Care Oil Burner Installer Name Role Phone Phylicia Brown SACHIN Primary Care Provider Reason for Visit * Reason Comments Skin Lesion genitals Encounter Details Date Type Department Care Team (Late st Contact Info) Description 11/16/2012 16:00 EST Office Visit [facility] Dermatology 3rd Floor [address] [address] Unknown, Provider, Felipa Espinoza MD [address] [facility], [facility] [address] [place] [address] Naren Fong MD [address] [place] [id number] Rash and other nonspecific skin eruption (Primary Dx) Discharge Disposition: Auto Discharge Social [...] Yes 04/15/2011 documented as of this encounter Patient Instructions * Patient Instructions* Naren Fong - 11/16/2012 15:48 EST DERMATOLOGY WOUND CARE INSTRUCTIONS FOR SKIN BIOPSY The DRESSING/BANDAID should remain in place for 24 hours. You may shower or bathe after 24 hours; remove the bandage and replace it after the shower. DISCOMFORT: Extra-Strength Tylenol, as directed by machine brush maker, usually relieves any pain you may have. BLEEDING: You may notice some blood on the edges of the dressing the first day and this is NORMAL. If the bleeding soaks through the dressing, remove the dressing, and apply firm, steady pressure with a moist clean wash cloth for fifteen minutes. If the bleeding stops, redress the wound, if not, call our office at . ACTIVITY: You may resume normal activity in 1 day unless instructed otherwise. WOUND CARE: Wash hands with soap and water before changing the dressing. Change the dressing daily and when it becomes wet. Clean the wound daily with mild soap and water. You may gently loosen any crusts with a cotton swab. The wound may be slightly tender and may bleed a small amount. A small amount of discharge is normal, and occasionally this appears yellow. Apply a thin layer of sterile petroleum jelly over the wound. Cover the wound with a Telfa (non-stick) dressing or bandage. It is important to keep the wound covered. CONTACT THE OFFICE IF YOU EXPERIENCE: increased redness warmth to touch increased pain drainage with a foul odor rapid swelling of the wound fever or chills Please call our office or . documented in this encounter Ordered Prescriptions Prescription Sig Dispensed Refills Start Date End Da te valacyclovir (VALTREX) 1 g tablet Take 1 Tab by mouth 3 times daily for 7 days. 21 Tab 0 11/16/2012 11/23/2012 documented in this encounter Discharge Disposition Disposition Code Departure Means Destination Auto Discharge documented in this encounter Progress Notes * Naren Fong - 11/21/2012 5258 ESTQuick Note: Spoke to patient at length. She is improving on Valtrex. NAREN FONG MD * AilynNaren colmenares - 11/16/2012 2359 EST Dermatology Clinic Note Problem List: 1. Rash in groin S: 37 yo woman who comes into establish care with concerns about a rash. Started two weeks ago now after using chemical depilatory to mons pubis. Hand tingling sensation and then itchy painful papules in groin. Never anything like this before. No h/o cold sores, but gets them. No new sexualpartners. Has been putting several different topicals including antifungals, antibacterial soaps, astringents, etc. Now just started topical steroids. Helping minimally. 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 Mild temperature and malaise earlier in the week. On 60 mg prednisone but worried about her diabetes, as she is insulin dependent Type 2. For full Medical History, Family History, medications, allergies, Review of Systems, please see thePRISM encounter which I have personally reviewed. 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 Stewart was counseled extensively on this condition today. May be a reactivation but given extent this is more consistent with primary or FIRST CLINICAL EPISODE which is often a recurrence of apreviously subclinical lesion Should discuss this with , but they can wait for results Will check swab today for PCR Will also do punch biopsy for determination. Risks explained to patient who agrees. Attending present for entire procedure Valacyclovir 1 g TID X 7 days. Disp #21. Zoster dosing for now, and can always decrease pending results, but with first episode will treat accordingly. Okay to use topical steroids. I think she should RAPIDLY taper the steroids she stated orally. Will finish over a few days. Follow up pending results. PUNCH BIOPSY PROCEDURE NOTE PATIENT INFORMATION: Kymberly Stewart [id number] 1975 DATE OF PROCEDURE: 11/16/2012 SURGEON: NAREN FONG MD PROCEDURE NOTE The indication, risks, benefits and alternatives to this procedure were discussed in detail in withthe patient and all questions were answered. Informed consent was obtained in writing. Specimen A Procedure: Punch Biopsy Site: Mons Anesthesia: 1% lidocaine with epinephrine 1:100,000 local infiltration Prep: Chlorhexidine The lesion was prepped and anesthetized with local anesthesia. The specimen was removed with a 4.0 mm punch trephine. Hemostasis was achieved with pressure. The wound was closed with 5.0 Vicryl Rapide (coated polyglactin 910) suture. A sterile dressing was applied over petrolatum ointment. Verbal and written wound care instructions were given. The specimen was submitted to pathology for histological evaluation. NAREN FONG MD 11/16/2012 22:57 , Attestation statement: I saw and examined the patient with the resident/fellow. I agree with the findings and plan of care documented in the resident's/fellow's note. The resident performed the procedure under my direct supervision and with my assistance. Felipa Espinoza MD [facility] Dermatology & Mohs Surgery [facility] 11/24/2012 12:41 * Emma Clements - 11/16/2012 1530 EST Review of Systems Constitutional: Negative for fever, fatigue and unexpected weight change. HENT: Negative for mouth sores. Eyes: Negative for pain. Respiratory: Negative for cough and shortness of breath. Cardiovascular: Negative for chest pain and palpitations. Gastrointestinal: Negative for nausea, vomiting, abdominal pain, diarrhea, constipation and blood in stool. Genitourinary: Negative for dysuria, frequency and hematuria. Musculoskeletal: Negative for myalgias, joint swelling, arthralgias and muscle stiffness in the morning. Skin: Negative for rash. Neurological: Negative for numbness and headaches. Endo/Heme/Allergies: Does not bruise/bleed easily. Psychiatric/Behavioral: Negative for disturbed wake/sleep cycle. The patient is not nervous/anxious. NAREN FONG MD documented in this encounter Miscellaneous Notes * Scanned Note-Null - PROCESS DEVELOPER, SCAN 2 - 11/19/2012 2313 EST documented in this encounter Plan of Treatment Upcoming Encounters Date Type Department Care Team (Late st Contact Info) Description 05/17/2024 13:00 EDT Office Visit [facility] Endocrinology [address] [address] Twyla Mcclellan NP [address] [place] [phone] 08/30/2024 14:00 EST Office Visit [address] [phone] Twyla Mcclellan NP [address] [place] [phone] documented as of this encounter Procedures Procedure Name Priority Date/Time Associated Diagnosis Comments VIROLOGY DETECTION Routine 11/16/2012 15 :48 EST Rash and other nonspecific skin eruption documented in this encounter Results * VIROLOGY DETECTION (11/16/2012 15:48 EST) Specimen Description Skin [facility] Result HERPES SIMPLEX VIRUS TYPE 1 detected by PCR. [facility] Result [facility] Result No Herpes simplex Virus Type II detected by PCR [facility] Result (Note) Analyte Specific Reagent. This test was developed and its performance characteristics determined by Laboratory Medicine and Pathology, [facility]. This test has not been cleared or approved by the U.S. Food and Drug Administration. FDA does not require this test to go through premarket FDA review. This test is used for clinical purposes. It should not be regarded as investigational or for research. This laboratory is certified under the Clinical Laboratory Improvement Amendments of 1988 (CLIA) as qualified to perform high complexity clinical laboratory testing. [facility] Report Status 11/17/2012 Final [facility] SPECIMEN FROM SKIN / Unknown 11/16/2012 15:48 EST 11/16/2012 18:40 EST Felipa Espinoza MD MICROBIOLOGY - GENERAL ORDERABLES Performing Organization Address City/State/[facility] Co de Phone Number [facility] [address] [place] [address] documented in this encounter Visit Diagnoses Diagnosis Rash and other nonspecific skin eruption- Primary documented in this encounter Care Teams Oil Burner Installer Relationship Specialty Start Date End Date Phylicia Brown NP [address] [place] [address] PCP - General 09/19/10 11/20/13 documented as of this encounter
--- OUTSIDE RECORDS SUMMARY | 2024-04-22 04:28 | XMS_ITS | Encounter Summary ---
Author Organization [facility] Address [address] [place] [address] Care Team Providers Care Assistant Director Name Role Phone Edmar Temple MD Primary Care Provider [phone] Reason for Visit * Reason Comments Diabetes f/u Encounter Details Date Type Department Care Team (Late st Contact Info) Description 01/23/2014 8:30 EDT Nutrition [facility] Endocrinology - [address] [address] Genoveva Yost Type II or unspecified type diabetes mellitus without mention of complication, uncontrolled (Primary Dx) Social History Tobacco Use Types [...] Sign Reading Time Taken Comments Blood Pressure 156/68 01/23/2014 0827 EDT Pulse - - Temperature - - Respiratory Rate - - Oxygen Saturation - - Inhaled Oxygen Concentration - - Weight 113.7 kg (250 lb 9.6 oz) 01/23/2014 0827 EDT Height 169.2 cm (5' 6.61) 01/23/2014 0827 EDT Body Mass Index 39.71 01/23/2014 0827 EDT documented in this encounter Functional Status Cognitive Status Response Date of Assessm ent Because of a physical, menta l, or emotional condition, do you have serious difficulty concentrating, remembering, or making decisions? (5 years old or older) Yes 04/15/2011 documented as of this encounter Patient Instructions * Patient Instructions* Genoveva Yost - 01/23/2014 9:00 EDT Email pump download in 1 week [email or web address] documented in this encounter Progress Notes * Genoveva Yost - 01/23/2014 1000 EDT Images from the original note were not included. ENDOCRINOLOGY AND DIABETES DIABETES SELF MANAGEMENT PUMP FOLLOW UP NOTE Referred by: JUAN Alvares DOS: 01/23/14 Pump model: Omnipod Meter: PDM Elena Traylor started her Omnipod on Wednesday and loves it. She transferred over from a [employer] that shewas on for years. Basal rates: time rate 00 2.5 5:30 2 6:00 2.5 10:00 3.5 13:30 4 19:00 3 Carb ratios: time ratio 00 10 Correction ratios: time ratio 00 10 Target: time Target range 00 100-110 Active insulin 3 hours Hypoglycemia: 1 episode following yardwork @ 41 And 1 fasting episode @ 69 Blood sugar assessment: Adherence to monitoring: yes avg 8 times daily Adherence to dosing: yes Adherence to hyperglycemia protocol: yes Glucagon current____n__ ketosticks current_n Emergency Supplies: Rapid Acting pens Basal insulin Syringes/pen needles carries extra pump supplies _y Pt has been advised of Off Pump Guidelines _y Pt has been advised to avoid Xray devices including airport scanners __y Changing sites every 1 1/2 days Site assessment:_using arm-no issues___ needs new rx to reflect 1.5day changes Correct time confirmed on pump y Assessment: Kymberly is an extremely pleasant 38 yo female with type 2 diabetes. She has transitioned over to Omnipod without any difficulty and is using more of the pump features like the temp basaland the extended bolus on a regular basis. She will download the software at home and send reports periodically. Reviewed all of her settings and did change a basal rate overnight. Some of her basal r ates are much higher than before but after reviewing her bg, they seem appropriate now. Plan: Basal rates: time rate 00 2 6:00 2.5 10:00 3.5 13:30 4 19:00 3 Carb ratios: time ratio 00 10 Correction ratios: time ratio 00 10 Target: time Target range 00 100-110 Follow up: Send download in 1 week Appt with Lazara in 2 months; 3 months after with CDE No barriers to education noted. Pt verbalized understanding Time spent with patient: 30 minutes. ICD-9: 250.02 documented in this encounter Plan of Treatment Upcoming Encounters Date Type Department Care Team (Late st Contact Info) Description 05/17/2024 13:00 EDT Office Visit [facility] Endocrinology - [address] [address] Twyla Mcclellan NP [address] [place] [phone] 08/30/2024 14:00 EST Office Visit [address] [address] Twyla Mcclellan NP [address] [place] [phone] documented as of this encounter Visit Diagnoses Diagnosis Type II or unspecified type diabetes mellitus without mention of complication, uncontrolled- Primary documented in this encounter Care Teams Assistant Director Relationship Specialty Start Date End Date Edmar Temple MD [address] [place] [address] [place] [phone] PCP - General 11/21/13 documented as of this encounter
--- OUTSIDE RECORDS SUMMARY | 2024-04-22 04:28 | XMS_ITS | Encounter Summary ---
Author Organization [facility] Address [address] [place] [address] Care Team Providers Care Tax Accounting Assistant Name Role Phone Edmar Temple MD Primary Care Provider [phone] Reason for Visit * Reason Comments Labs Only pt having them done at [facility] Encounter Details Date Type Department Care Team (Latest Contact Info) Description 12/20/2013 10:00 EDT Procedure visit [facility] Endocrinology - [facility] [address] [place] [address] Hadley Mejia, [address] [facility] [address] [place] [address] Phlebotomy, [facility] Diabetes mellitus ([facility] ([facility]) Discharge Disposition: Auto Discharge Social History Tobacco [...] UNCOMPL ADULT-TYPE II[ICD-9-CM] documented in this encounter Discharge Disposition Disposition Code Departure Means Destination Auto Discharge documented in this encounter Plan of Treatment Upcoming Encounters Date Type Department Care Team (Late st Contact Info) Description 05/17/2024 13:00 EDT Office Visit [facility] Endocrinology [address] [phone] Twyla Mcclellan NP [address] [place] [phone] 08/30/2024 14:00 EST Office Visit [address] [address] Twyla Mcclellan NP [address] [place] [phone] documented as of this encounter Visit Diagnoses Diagnosis Diabetes mellitus ([facility]) Type II or unspecified type diabetes mellitus without mention of complication, not stated as uncontrolled documented in this encounter Care Teams Tax Accounting Assistant Relationship Specialty Start Date End Date Edmar Temple MD [address] [place] [address] [address] [place] [phone] PCP - General 11/21/13 documented as of this encounter
--- OUTSIDE RECORDS SUMMARY | 2024-04-22 04:28 | XMS_ITS | Encounter Summary ---
Author Organization [facility] Address [address] [place] [address] Care Team Providers Care Prosthetic Assistant Name Role Phone RossAll Phylicia SACHIN Primary Care Provider Reason for Visit * Reason Comments Routine Visit Encounter Details Date Type Department Care Team (Late st Contact Info) Description 06/01/2011 15:30 EDT Office Visit [facility] Obstetrics & Midwifery - [address] [address] Matilde Sullivan MD Supervision of high-risk (Primary Dx) Social History Tobacco Use Types Packs/Day Years Used Date Smoking Tobacco: Former Cigarettes Q uit: 09/26/2003 Sex and Gender Information Value Date Recorded Sex Assigned at Not on file Gender Identity Not on file Sexual Orientation Not on file documented as of this encounter Last Filed Vital Signs Vital Sign Reading Time Taken Comments Blood Pressure 132/82 06/01/2011 1555 EDT Pulse - - Temperature - - Respiratory Rate - - Oxygen Saturation - - Inhaled Oxygen Concentration - - Weight 103.5 kg (228 lb 3.2 oz) 06/01/2011 1555 EDT Height 170.2 cm (5' 7) 06/01/2011 1555 EDT Body Mass Index 35.74 06/01/2011 1555 EDT documented in this encounter Functional Status Cognitive Status Response Date of Assessm ent Because of a physical, menta l, or emotional condition, do you have serious difficulty concentrating, remembering, or making decisions? (5 years old or older) Yes 04/15/2011 documented as of this encounter Progress Notes * Laura Kirkpatrick MD - 06/01/2011 1615 EDT Kymberly Stewart is a 36 y.o. female who presents 6 week(s) post following a repeatelective low transverse section and tubal ligation. The delivery was at 39w2d gestational weeks and her postoperative course was uncomplicated. Anesthesia: Spinal. course has been uncomplicated Baby's course has been doing well without problems. Baby is bottle-feeding, she was up until about 1 week ago but baby was losing weight secondary to decreased milk fat content as mom has a h/o Alfredo-en-Y bypass. Baby is tolerating the formula well. Current Status: Bleeding: minimal spotting last week, has since resolved. Bowel function is normal. Bladder function is normal depression screening: negative. Patient is sexually active. Contraception method is s/p tubal ligation. Returning to work: Yes, family/social support is good I have fully reviewed the and intrapartum course, delivery events, and above subjective information. Additional provider comments none. Medical History on file. Past Medical History Diagnosis Date ??? Diabetes ??? Hypothyroidism ??? Morbid obesity ??? Asthma ??? Hiatal hernia ??? PCOS (polycystic ovarian syndrome) ??? HAMM (nonalcoholic steatohepatitis) ??? HTN (hypertension) ??? Esophagitis ??? Sleep apnea No current outpatient prescriptions on file. Allergies: No Known Allergies Review of Systems Pertinent items are noted in Subjective/HPI Objective: BP 132/82 Ht 170.2 cm (67) Wt 103.511 kg (228 lb 3.2 oz) BMI 35.74 kg/m2 General: alert, cooperative, no distress Lungs: clear to auscultation bilaterally Heart: regular rate and rhythm, S1, S2 normal, no murmur, click, rub or gallop Abdomen: soft, non-tender; bowel sounds normal; no masses, no organomegaly, incision well-healed, intact Assessment: Routine exam. Plan: 1. Contraception: s/p tubal ligation 2. Patient has follow-up already scheduled with her PCP regarding her type 2 DM, HTN, and routine annual exams. She had a normal pap in 09/2010 and will be due for a repeat pap in 09/2012 and then q3 years if done with HPV testing. 3. Follow up as needed Pt seen and d/w Dr. Trish Kirkpatrick MD 06/01/2011 16:15 MFMS Attending I saw the pt with the resident. I agree with the findings and plan of management. The pt had no further questions concerning her care plan. MATILDE SULLIVAN MD documented in this encounter Plan of Treatment Upcoming Encounters Date Type Department Care Team (Late st Contact Info) Description 05/17/2024 13:00 EDT Office Visit [facility] Endocrinology [address] [address] Twyla Mcclellan NP [address] [place] [phone] 08/30/2024 14:00 EST Office Visit [address] [address] Twyla Mcclellan NP [address] [place] [phone] documented as of this encounter Visit Diagnoses Diagnosis Supervision of high-risk - Primary Unspecified high-risk documented in this encounter Care Teams Prosthetic Assistant Relationship Specialty Start Date End Date Phylicia Brown NP [address] [place] [phone] PCP - General 09/19/10 11/20/13 documented as of this encounter
--- OUTSIDE RECORDS SUMMARY | 2024-04-22 04:28 | XMS_ITS | Encounter Summary ---
Author Organization [facility] Address [address] [place] [address] Care Team Providers Care College Instructor Name Role Phone Phylicia Brown NP Primary Care Provider Encounter Details Date Type Department Care Team (Late st Contact Info) Description 09/01/2011 Abstract [facility] Bariatric Surgery - [address] [address] Brielle Mendez, MANAGER CLINICAL APPLICATIONS [address] [facility] [address] [phone] Social History Tobacco Use Types Packs/Day Years [...] EDT Office Visit [facility] Endocrinology - [facility] [address] [place], [place] [phone] Twyla Mcclellan NP 62 [facility] [address] [place] [phone] 08/30/2024 14:00 EST Office Visit [facility] Endocrinology - [facility] [address] [place] [address] Twyla Mcclellan FINISHED STOCK INSPECTOR 62 [facility] [address] [place] [phone] documented as of this encounter Visit Diagnoses Not on filedocumented in this encounter Care Teams College Instructor Relationship Specialty Start Date End Date Phylicia Brown NP [address] [place] [address] PCP - General 09/19/10 11/20/13 documented as of this encounter
--- OUTSIDE RECORDS SUMMARY | 2024-04-22 04:28 | XMS_ITS | Encounter Summary ---
Author Organization [facility] Address [address] [place] [address] Care Team Providers Care Educational Aid Name Role Phone Phylicia Brown SACHIN Primary Care Provider Reason for Visit * Reason Comments Non-stress Test TYPE 2 DM; HTN Encounter Details Date Type Department Care Team (Late st Contact Info) Description 04/10/2011 13:30 EDT Nurse Only [facility] Obstetrics & Midwifery - [address] [phone] Viet Vann MD [address] [place] [address], [address] [place] [phone] Nurse, [facility] HTN (hypertension); DM type 2 (diabetes mellitus, type 2) ([facility]) ([facility]); AMA (advanced maternal age) multigravida 35+ Social History Tobacco Use Types Packs/Day Years Used Date Smoking Tobacco: Former Cigarettes Q uit: 09/26/2003 Comments Yes Sex and Gender Information Value Date Recorded Sex Assigned at Not on file Gender Identity Not on file Sexual Orientation Not on file documented as of this encounter Progress Notes * Viet Vann MD - 04/10/2011 1401 EDT NST Report Baseline Heart Rate: 150 Accelerations: present Movement: present Decelerations: absent Contractions: Present (2 noted 11 minutes apart) Interpretation: reactive Viet Vann MD 04/10/2011 14:01 documented in this encounter Miscellaneous Notes * Scanned Note-Null - Marc, Cashier Gambling - 04/13/2011 1121 EDT documented in this encounter Plan of Treatment Upcoming Encounters Date Type Department Care Team (Late st Contact Info) Description 05/17/2024 13:00 EDT Office Visit [facility] Endocrinology - [address] [phone] Twyla Mcclellan NP [address] [place] [phone] 08/30/2024 14:00 EST Office Visit [address] [address] Twyla Mcclellan NP [address] [place] [phone] documented as of this encounter Visit Diagnoses Diagnosis HTN (hypertension) Unspecified essential hypertension DM type 2 (diabetes mellitus, type 2) ([facility]) Type II or unspecified type diabetes mellitus without mention of complication, not stated as uncontrolled AMA (advanced maternal age) multigravida 35+ Elderly multigravida unspecified as to episode of care or not applicable documented in this encounter Care Teams Educational Aid Relationship Specialty Start Date End Date Phylicia Brown NP [address] [place] [address] PCP - General 09/19/10 11/20/13 documented as of this encounter
--- OUTSIDE RECORDS SUMMARY | 2024-04-22 04:28 | XMS_ITS | Encounter Summary ---
Author Organization [facility] Address [address] [place] [address] Care Team Providers Care Huc Name Role Phone Phylicia Brown INTERNATIONAL ACCOUNTING MANAGER Primary Care Provider Encounter Details Date Type Department Care Team (Late st Contact Info) Description 03/27/2011 Results Only [facility]- [facility] [[email or web address]] [phone] Point, Of Care User [address] [place] [address] Social History Tobacco Use Types Packs/Day Years [...] Info) Description 05/17/2024 13:00 EDT Office Visit [facility] Endocrinology [address] [address] Twyla Mcclellan NP [address] [place] [phone] 08/30/2024 14:00 EST Office Visit [address] [phone] Twyla Mcclellan NP [address] [place] [phone] documented as of this encounter Procedures Procedure Name Priority Date/Time Associated Diagnosis Comments POCT URINALYSIS Routine 03/27/2011 14:45 EDT documented in this encounter Results * (ABNORMAL) POCT URINALYSIS (03/27/2011 14:45 EDT) Color YELLOW [facility] Clarity, UA Clear [facility] Glucose 3+(A) NEG [facility] Bilirubin Neg NEG [facility] Ketones Neg NEG [facility] Specific [place] >=1.030 1.001 - 1.035 [facility] Blood Neg NEG [facility] pH 5.5 4.6 - 8.0 [facility] Protein Neg NEG [facility] Urobilinogen 0.2 0.2 - 1.0 E.U./dl [facility] Nitrite Neg NEG [facility] Leuk Esterase Neg NEG [facility] MIN shorer ID [id number] Test performed at [facility] 03/27/2011 14:4 5 EDT 03/27/2011 14:49 EDT Of Care User Point POINT OF CARE TEST O RDERABLES [facility] [address] [place] [address] documented in this encounter Visit Diagnoses Not on filedocumented in this encounter Care Teams Huc Relationship Specialty Start Date End Date Phylicia Brown NP [address] [place] [address] PCP - General 09/19/10 11/20/13 documented as of this encounter
--- OUTSIDE RECORDS SUMMARY | 2024-04-22 04:28 | XMS_ITS | Encounter Summary ---
Author Organization [facility] Address [address] [place] [address] Care Team Providers Care Solution Strategist Name Role Phone Edmar Temple MD Primary Care Provider [phone] Reason for Visit * Reason Comments Diabetes f/u Encounter Details Date Type Department Care Team (Latest Contact Info) Description 03/29/2014 16:00 EDT Office Visit [facility] Endocrinology - [facility] [address] [place] [address] Shanika Aquino NP [address] [facility] [address] [place] [address] Type II or unspecified type diabetes mellitus [...] Sign Reading Time Taken Comments Blood Pressure 134/82 03/29/2014 1548 EDT Pulse 68 03/29/2014 1548 EDT Temperature - - Respiratory Rate - - Oxygen Saturation - - Inhaled Oxygen Concentration - - Weight 117.8 kg (259 lb 9.6 oz) 03/29/2014 1548 EDT Height 169.2 cm (5' 6.61) 03/29/2014 1548 EDT Body Mass Index 41.14 03/29/2014 1548 EDT documented in this encounter Functional Status Cognitive Status Response Date of Assessm ent Because of a physical, menta l, or emotional condition, do you have serious difficulty concentrating, remembering, or making decisions? (5 years old or older) Yes 04/15/2011 documented as of this encounter Discharge Diagnoses Diagnosis 250.02 DIABETES UNCOMPL ADULT-UNCONTRLLED[ICD-9-CM] documented in this encounter Patient Instructions * Patient Instructions* Shanika Aquino ANP - 03/29/2014 16:19 EDT BS 80-120 and 2 hours after meal 160 or don't jump >60 Increase basal rate at midnight to 2.2 (0.2 unit more) Follow-up in 3 months Luraglitide - Take 15 minutes before breakfast 0.6 mg for 3 days and the 1.2 for and then 1.8 Cut meal bolus 50% when start above and resume as needed when on full dose. Call if getting low [phone] documented in this encounter Ordered Prescriptions Prescription Sig Dispensed Refills Start Date End Da te insulin pen needles 31G x 02/02Indications:Type II or unspecified type diabetes mellitus without mention of complication, uncontrolled Use as directed daily. 100 Each 1 03/29/2014 03/29/2015 liraglutide (VICTOZA) 0.6 mg/0.1 mL (18 mg/3 mL) injectable penIndications:Type II or unspecified type diabetes mellitus without mention of complication, uncontrolled 0.6 mg for 3 days and the 1.2 for and then 1.8. 3 Each 3 03/29/2014 07/10/2014 documented in this encounter Progress Notes * Shanika Aquino ANP - 03/29/[address] [facility] Diabetes Follow-Up Note CHIEF COMPLAINT: Kymberly Stewart presents in clinic today with: 1. Type II or unspecified type diabetes mellitus without mention of complication, uncontrolled Diabetes PROGRESS/FOLLOWUP NOTE - 11/13/2010 PROBLEM: Hypothyroidism, hypertension, sleep apnea, status post gastric bypass, type 2 diabetes controlled on pump therapy, asthma, dyslipidemia. ALLERGIES: She has no known drug allergies. SUBJECTIVE: Kymberly is a 38-year-old woman with type 2 diabetes managed on an insulin pump. Seen in follow-up for medication adjustment and complication surveillance. She had gastric bypass surgery in July of 2009. Her highest weight was 320 and a loss of 61 pounds, but has gained 21 pounds since last seen. HgA1c at her last visit 3 months ago was 9.15 and today is 8.1%. She takes metformin and continues on insulin pump therapy. She uses an Omnipod insulin pump Midnight is 2.0, 6:00 a.m. is 12.5, 10 AM 3.5 1:30 PM 4 and 7 PM 3 units Carb to insulin ratio is 10:1. Sensitivity is 10:1. She uses the extended bolus with meals 50% over 2 hours and the temp basal featurewith exercise 50% decrease for 1-2 hours or [...] pump shows she tests 3-4 times/day. She boluses 20-5 times/ day. times a day. Usually manual boluses for food. She attributes this to grazing because of her surgery. She eats mostlyprotein and some fat, She is testing more. She has a fear of lows. FBS- 112- 170 most Occ 250 Noon - 96-250 scattered D Mid 100's HS - mostly scattered in 200's. Only 1 low noted at noon Her first was with her son delivered [...] needles 31g x /16, levothyroxine, metformin, multivitamin, vitamin b complex, and vitamine. The patient has experienced the following acute complications: hypoglycemia - mild-moderate and hyperglycemia - mild-moderate. History Substance Use Topics ??? Smoking status: Former Smoker Quit date: 09/26/2003 ??? Smokeless tobacco: Not on file ??? Alcohol Use: Yes Comment: social does not tolerate well since bariatric surgery PHYSICAL EXAMINATION: Vitals: BP 134/82 Pulse 68 Ht 169.2 cm (66.61) Wt 117.754 kg (259 lb 9.6 oz) BMI 41.13 kg/m2 LMP 03/28/2014 BMI: Body mass index is 41.13 kg/(m^2). On physical exam well developed morbidly obese woman in no acute distress. Heart and lung sound unremarkable with no carotid bruit. Neck supple without thyromegaly. No leg edema. LABS: Last done 12/25/16 at [facility]. Lab Results Component Value Date HGBA1C 9.1* 12/20/2013 ASSESSMENT/PLAN: Improvement in glycemic control but regaining weight. A GLP agonist might help control appetite and sugars more. No history of pancreatitis. Doing a better effort at testing, and entering data in pump. . Hypotensive today She is not on an BLADE or ARB. 12/25 mircoalbumin uinremarkable 12/25 lipid panel unremarkable except LDL 118 not on A statin On Levothyrozine - 12/25 TSH unremarkable 1. Type II or unspecified type diabetes mellitus without mention of complication, uncontrolled Our office will provide ongoing management of this patients' diabetes with a hemoglobin A1C goal ofless than 7. We have instructed the patient to call us with blood sugar values. I would like you tocontinue to manage their blood pressure, lipids and other preventive care. .Referred to diabetic education program. Referred to data keyer yes . Patient referred to eye healthcare translator for annual dilated eye exam. Lifestyle modifications: recommend losing weight Patient does demonstrate knowledge of diabetes and expectations. Patient does understand medication regimen. Barriers to adherence: Financial and Emotional. PLAN: BS 80-120 pre-meal and 2 hours after meal 160 or don't jump >60 Increase basal rate at midnight to 2.2 (0.2 unit more) Follow-up in 3 months Luraglitide - Take 15 minutes before breakfast 0.6 mg for 3 days and the 1.2 for and then 1.8 Cut meal bolus 50% when start above and resume as needed when on full dose. Call if getting low [phone] pump upgrade Bring food records Goals and plan to achieve these discussed. Systolic blood pressure less than 140. And diastolic blood pressure less than 80. Hemoglobin A1C less than 7%. LDL cholesterol: 70 to 99. HDL males >40 and females >50 mgm/dl Triglycerides fasting <150 mgm/dl JETT Yoon 03/29/2014 16:11 I spent a total of 40 minutes in face to face time with this patient, and 25 minutes of that time was spent in counseling and coordination of care as described in This progress note * Lulú Nash LPN - 03/29/2014 1549 EDT Fingerstick blood sample obtained for POCT Hemoglobin A1C performed for this DOS at the order of JUAN Herbert LPN 03/29/2014 15:49 documented in this encounter Plan of Treatment Upcoming Encounters Date Type Department Care Team (Late st Contact Info) Description 05/17/2024 13:00 EDT Office Visit [facility] Endocrinology [address] [phone] Twyla Mcclellan NP [address] [place] [phone] 08/30/2024 14:00 EST Office Visit [facility] Endocrinology [address] [address] Twyla Mcclellan NP [address] [place] [address] [place] [phone] documented as of this encounter Procedures Procedure Name Priority Date/Time Associated Diagnosis Comments POCT HEMOGLOBIN A1C Routine 03/29/2014 1 6:10 EDT Type II or unspecified type diabetes mellitus without mention of complication, uncontrolled documented in this encounter Results * (ABNORMAL) POCT HEMOGLOBIN A1C (03/29/2014 16:10 EDT) Hemoglobin A1c, POC 8.1(A) 5.7 POINT OF CARE 03/29/2014 16:1 0 EDT Shanika Aquino NP POINT OF CARE TEST ORDERABLES POINT OF CARE documented in this encounter Visit Diagnoses Diagnosis Type II or unspecified type diabetes mellitus without mention of complication, uncontrolled- Primary documented in this encounter Discontinued Medications Medication Sig Discontinue Reason Start Date End Da te insulin pen needles 31G x 02/02 Use as directed daily. Reorder 11/22/2013 03/29/2014 documented as of this encounter Care Teams Solution Strategist Relationship Specialty Start Date End Date Edmar Temple MD [address] [place] [address] [address] [place] [phone] PCP - General 11/21/13 documented as of this encounter
--- OUTSIDE RECORDS SUMMARY | 2024-04-22 04:28 | XMS_ITS | Encounter Summary ---
Author Organization [facility] Address [address] [place] [address] Care Team Providers Care Physical Therapy Assistant Name Role Phone Edmar Temlpe MD Primary Care Provider Reason for Visit * Reason Onset Date Comments Other 03/13/2014 pods Encounter Details Date Type Department Care Team (Late st Contact Info) Description 03/13/2014 Telephone [facility] Endocrinology - [facility] [address] [place] [address] Shanika Aquino NP [address] [facility] [address] [place] [address] Other (pods) Social History Tobacco Use Types Packs/Day Years [...] * Telephone Encounter - Genoveva Yost - 03/13/2014 1238 EDT Spoke with Miguelina: faxed her rx for pods this afternoon. Will have rx put in for insulin. Verbalized understanding/no barriers * Telephone Encounter - Belem Myers - 03/13/2014 1501 EDT Patient states Insulant Jw has not received the script for omni pod every other day change, she will also need insulin thru [facility]. Patient has 1 vial left. documented in this encounter Plan of Treatment Upcoming Encounters Date Type Department Care Team (Late st Contact Info) Description 05/17/2024 13:00 EDT Office Visit [facility] Endocrinology - [address] [phone] Twyla Mcclellan NP [address] [place] [phone] 08/30/2024 14:00 EST Office Visit [facility] Endocrinology - [address] [phone] Twyla Mcclellan NP [address] [place] [phone] documented as of this encounter Visit Diagnoses Not on filedocumented in this encounter Care Teams Physical Therapy Assistant Relationship Specialty Start Date End Date Edmar Temple MD [address] [place] [address] DR[address] [place] [address] PCP - General 11/21/13 documented as of this encounter
--- OUTSIDE RECORDS SUMMARY | 2024-04-22 04:28 | XMS_ITS | Encounter Summary ---
Author Organization [facility] Address [address] [place] [address] Care Team Providers Care Modeling Manager Name Role Phone Phylicia Brown NP Primary Care Provider Reason for Visit * Reason Comments Obesity Post op bypass Encounter Details Date Type Department Care Team (Late st Contact Info) Description 07/19/2012 11:00 EDT Office Visit [facility] Bariatric Surgery [address] [address] Gustavo Grande, HUONGC [address] [place] [address], [facility], [address] [place] [address] Morbid obesity (HCC-CMS) (Primary Dx) Social History Tobacco Use Types Packs/Day Years Used Date Smoking Tobacco: Former Cigarettes Q uit: 09/26/2003 Sex and Gender Information Value Date Recorded Sex Assigned at Not on file Gender Identity Not on file Sexual Orientation Not on file documented as of this encounter Last Filed Vital Signs Vital Sign Reading Time Taken Comments Blood Pressure 140/76 07/19/2012 1047 EDT Pulse 72 07/19/2012 1047 EDT Temperature - - Respiratory Rate - - Oxygen Saturation - - Inhaled Oxygen Concentration - - Weight 114.9 kg (253 lb 6.4 oz) 07/19/2012 1047 EDT Height 169.2 cm (5' 6.61) 07/19/2012 1047 EDT Body Mass Index 40.15 07/19/2012 1047 EDT documented in this encounter Functional Status Cognitive Status Response Date of Assessm ent Because of a physical, menta l, or emotional condition, do you have serious difficulty concentrating, remembering, or making decisions? (5 years old or older) Yes 04/15/2011 documented as of this encounter Progress Notes * Vane Bar RD - 07/19/2012 1102 EDT Nutrition Post Op Visit: Gastric Bypass Subjective:Patient returns to clinic for post op nutritional counseling following bariatric surgery3 years ago. Job finally settling down, hopes to be able to exercise at her lunch. Had a1c rechecked but does not know result. claims FBS 80-90, PM pre dinner 150- range. Questionnaire Reviewed: Yes Intolerance Episodes: yes rarely with carbs Food Intolerances: Pasta, rice, Bread, sweets Current Exercise: Walking, treadmill, elliptical Reactive Hypoglycemic Symptoms (bypass only): no Objective: Current Weight: Wt Readings from Last 1 Encounters: 07/19/12 114.941 kg (253 lb 6.4 oz) Current BMI: Body mass index is Body mass index is 40.15 kg/(m^2).. Total Weight Loss: Total Loss in lbs (Weight from Initial Consult - Today's Weight): 42.6 lbs Weight Change since Last Visit:+7.2 lb, since surgery lost 46 lb Supplement Usage: Type Amount MVT B12 Calcium w/Vit D Iron FeFum B Complex Vit D 2000 IU Recent Labs: Repeat bone labs WNL, other labs reviewed last visit Assessment: Adequate Meal Frequency: Yes Adequate Meal Composition: Yes Exercise Adequacy: Yes Nutritional Issues: weight regain continues. Advised she start a food log and keep calories around 1200 with 30 gr carb pr meal. To call her PCP and check on her a1c, if still >7 may need a med change. Offered to follow patient more closely if she wants Plan: Change intake-1200 kennedi, 30 gr carb per meal Initiate food logs Education Provided: Weight Control and sugar control * Gustavo Grande PA - 07/19/2012 1058 EDT 07/19/2012 Kymberly Stewart is here in follow-up to her laparoscopic Alfredo-En-Y gastric bypass. The weight trend for the patient is: Weight at initial consult: 134.265 kg (296 lb), to 111.676 kg (246 lb 3.2 oz)[12/01/2011] at the last post-op visit to today's Weight : 114.941 kg (253 lb 6.4 oz). PROBLEM LIST Patient Active Problem List Diagnoses ??? Morbid Obesity ??? Diabetes mellitus ??? Sleep Apnea ??? Status post gastric bypass for obesity ??? Hypothyroidism ??? Asthma ??? Type 2 diabetes mellitus ??? Hypertensive disorder ??? Dyslipidemia ??? Obstructive sleep apnea syndrome ??? Type 2 diabetes mellitus ??? Hyperlipidemia ??? PCOS (polycystic ovarian syndrome) ??? History of section ??? with other poor obstetric history ??? Short bowel syndrome ??? Supervision of high-risk ??? Diabetes mellitus, antepartum ??? Status post gastric bypass for obesity SUBJECTIVE: Job shift at work so not able to exercise as much as would like but hopefully soon Emesis: No complaints of emesis, except occasionally with pasta or rice Nausea: No complaints of nausea Increased Volume Tolerance: no Abdominal Pain: No complaints of abdominal pain Lightheadedness: No complaints of lightheadedness Bowel Function: Normal Pannus: No problems related to pannus reported OBJECTIVE: General Appearance: healthy appearing, alert, in no apparent distress and morbidly obese Abdomen: Incision well-healed Extremities: Normal Skin: Normal ASSESSMENT: Doing well, Expected course without obvious complications and Weight Loss: fair . Last A1c 8.6 earlier in year, had one checked last month but does not know results yet. Bone labs reviewed all normal. PLAN: 1. Return to clinic in 1 year(s). 2. No orders of the defined types were placed in this encounter. 3. Labs at next visit Seen and discussed with Show Girl at this visit. MARCUS Larsen 07/19/2012 10:58 * Lynda Reyes - 07/19/2012 1048 EDT 30-Day Plus Bariatric Surgery Postop Questionnaire Anticoagulation initiated for presumed/confirmed DVT/PE? No Incisional hernia noted on exam? No Sleep Apnea requiring CPAP or BiPap? No GERD requiring daily use of PPI or H2 blockers? No Musculoskeletal Disease? No If yes, is activity limited by pain? No If yes, is daily medication used? No If yes, new surgical intervention performed or planned? No Any visit to an outside hospital including ER visits and admissions (include date of admission and discharge and reason)? No Any surgical operations or procedures performed at an outside hospital (date of admission and discharge and suspected reason for admission) No Lynda Reyes 07/19/2012 10:48 documented in this encounter Plan of Treatment Upcoming Encounters Date Type Department Care Team (Late st Contact Info) Description 05/17/2024 13:00 EDT Office Visit [facility] Endocrinology [address] [phone] Twyla Mcclellan NP [address] [place] [phone] 08/30/2024 14:00 EST Office Visit [address] [phone] Twyla Mcclellan NP [address] [place] [phone] documented as of this encounter Visit Diagnoses Diagnosis Morbid obesity ([facility])- Primary Morbid obesity documented in this encounter Care Teams Modeling Manager Relationship Specialty Start Date End Date Phylicia Brown NP [address] [place] [phone] PCP - General 09/19/10 11/20/13 documented as of this encounter
--- OUTSIDE RECORDS SUMMARY | 2024-04-22 04:28 | XMS_ITS | Encounter Summary ---
Author Organization [facility] Address [address] [place] [address] Care Team Providers Care Dish Cloth Inspector Name Role Phone Phylicia Brown TOSSER Primary Care Provider Encounter Details Date Type Department Care Team (Late st Contact Info) Description 04/03/2011 Results Only [facility] [phone] Point, Of Care User [address] [place] [address] Social History Tobacco Use Types Packs/Day Years [...] Office Visit [facility] Endocrinology [address] [address] Twyla Mcclellan NP [address] [place] [phone] 08/30/2024 14:00 EST Office Visit [address] [phone] Twyla Mcclellan NP [address] [place] [phone] documented as of this encounter Procedures Procedure Name Priority Date/Time Associated Diagnosis Comments POCT URINALYSIS Routine 04/03/2011 13:35 EDT documented in this encounter Results * (ABNORMAL) POCT URINALYSIS (04/03/2011 13:35 EDT) Color ORANGE [facility] Clarity, UA SLIGHTLY CLOUDY [facility] Glucose 1+(A) NEG [facility] Bilirubin Neg NEG [facility] Ketones Trace(A) NEG [facility] Specific [place] >=1.030 1.001 - 1.035 [facility] Blood Neg NEG [facility] pH 5.5 4.6 - 8.0 [facility] Protein Trace(A) NEG [facility] Urobilinogen 0.2 0.2 - 1.0 E.U./dl [facility] Nitrite Neg NEG [facility] Leuk Esterase Neg NEG [facility] MIN technology lead ID [id number] Test performed at [facility] 04/03/2011 13:3 5 EDT 04/03/2011 13:39 EDT Of Care User Point POINT OF CARE TEST O RDERABLES [facility] [address] [place] [address] documented in this encounter Visit Diagnoses Not on filedocumented in this encounter Care Teams Dish Cloth Inspector Relationship Specialty Start Date End Date Phylicia Brown NP [address] [place] [id number] PCP - General 09/19/10 11/20/13 documented as of this encounter
--- OUTSIDE RECORDS SUMMARY | 2024-04-22 04:28 | XMS_ITS | Encounter Summary ---
Author Organization [facility] Address [address] [place] [address] Care Team Providers Care Tub Rider Name Role Phone Phylicia Brown SACHIN Primary Care Provider Reason for Visit * Reason Comments Routine Visit Pt. reports feeli ng well, +FM. Pt. denies VB/LOF, ctx. Encounter Details Date Type Department Care Team (Late st Contact Info) Description 04/03/2011 13:45 EDT Routine [facility] Obstetrics & Midwifery - [address] [address] Kelsi Chambers MD GA: 37w5d Social History Tobacco Use Types Packs/Day Years Used Date Smoking Tobacco: Former Cigarettes Q uit: 09/26/2003 Comments Yes Sex and Gender Information Value Date Recorded Sex Assigned at Not on file Gender Identity Not on file Sexual Orientation Not on file documented as of this encounter Last Filed Vital Signs Vital Sign Reading Time Taken Comments Blood Pressure 120/82 04/03/2011 1359 EDT Pulse - - Temperature - - Respiratory Rate - - Oxygen Saturation - - Inhaled Oxygen Concentration - - Weight 113.9 kg (251 lb 3.2 oz) 04/03/2011 1329 EDT Height - - Body Mass Index 39.33 01/09/2011 1200 EDT documented in this encounter Progress Notes * Kelsi Chambers MD - 04/03/2011 1456 EDT NST Report Baseline Heart Rate: 135 Accelerations: present Movement: present Decelerations: absent Contractions: absent Interpretation: reactive Kelsi Chambers MD 04/03/2011 14:55 * Kelsi Chambers MD - 04/03/2011 1359 EDT 36-40 Weeks Subjective: Kymberly Stewart is a 36 y.o. #1 IUP at 37w5d Patient reports: no complaints Contractions: IrregularFetal movement: present #2. Additional problems: see below Objective: BP 148/88 Wt 113.944 kg (251 lb 3.2 oz) Large cuff- BP repeated 120/82 No swelling U/a-trace protein Assessment:PLAN 1. IUP at 37w5d: maternal habitis precludes accurate size measurement 2. Status Post Gastric Bypass for Obesity - Kelsi Chambers MD 04/03/11 1357 Signed Vit K shot this Am Diabetes - Kelsi Chambers MD 04/03/11 1358 Addended Good control per pt Testing twice a week 3. . Follow-up in 1 weeks * Kareen Ryan - 04/03/2011 1344 EDT Recent Labs Basename 04/03/11 1335 ??? COLOR ORANGE ??? CLARITYU SLIGHTLY CLOUDY ??? GLUCOSEUAPOC 1+* ??? BILIRUBIN Neg ??? KETONES Trace* ? ? SPECGRAV >=1.030 ??? BLOOD Neg ??? PHUA 5.5 ??? PROTEINUAPOC Trace* ??? UROBILINOGEN 0.2 ??? NITRITE Neg ??? LEUKESTER Neg documented in this encounter Miscellaneous Notes * Assessment & Plan Note - Kelsi Chambers MD - 04/03/2011 0477 EDTAssociated Problem(s): Diabetes mellitus ([facility]) Good control per pt Testing twice a week * Assessment & Plan Note - Kelsi Chambers MD - 04/03/2011 1357 EDTAssociated Problem(s): Status post gastric bypass for obesity Vit K shot this Am documented in this encounter Plan of Treatment Upcoming Encounters Date Type Department Care Team (Late st Contact Info) Description 05/17/2024 13:00 EDT Office Visit [facility] Endocrinology [address] [address] Twyla Mcclellan NP [address] [place] [phone] 08/30/2024 14:00 EST Office Visit [address] [address] Twyla Mcclellan NP [address] [place] [phone] documented as of this encounter Visit Diagnoses Diagnosis Previous section Other postprocedural status with other poor obstetric history(V23.49) with other poor obstetric history HTN (hypertension) Unspecified essential hypertension Asthma Unspecified asthma Hypothyroid Unspecified hypothyroidism Diabetes ([facility]) Type II or unspecified type diabetes mellitus without mention of complication, not stated as uncontrolled Status post gastric bypass for obesity Bariatric surgery status Supervision of high-risk Unspecified high-risk documented in this encounter Discontinued Medications Medication Sig Discontinue Reason Start Date End Da te Ergocalciferol, Vitamin D2, (VITAMIN D) 400 unit Cap Take 400 Units by mouth daily. 04/03/2011 documented as of this encounter Orders Lab Orders Without Results Count Last Ordered D ate First Ordered Date POCT URINE DIPSTICK 1 04/03/2011 documented in this encounter Care Teams Tub Rider Relationship Specialty Start Date End Date Phylicia Brown NP [address] [place] [id number] PCP - General 09/19/10 11/20/13 documented as of this encounter
--- OUTSIDE RECORDS SUMMARY | 2024-04-22 04:28 | XMS_ITS | Encounter Summary ---
Author Organization [facility] Address [address] [place] [address] Care Team Providers Care Wind Site Manager Name Role Phone Edmar Temple MD Primary Care Provider [phone] Reason for Visit * Reason Onset Date Comments Prior Auth, Medication 01/02/2014 Prior Auth, Medication 01/03/2014 omni pod Encounter Details Date Type Department Care Team (Late st Contact Info) Description 01/02/2014 Telephone [facility] Endocrinology - [address] [phone] Genoveva Yost Prior Auth, Medication; Prior Auth, Medication (omni pod) Social History Tobacco Use Types Packs/Day Years [...] encounter Miscellaneous Notes * Telephone Encounter - Jennifer Maria - 01/04/2014 0913 EDT I just received this paperwork at end of day yesterday. On providers desk for a signature now. * Telephone Encounter - Julisa Tolbert - 01/03/2014 1251 EDT Pt wld like to know if paperwork has been received and been sent out? * Telephone Encounter - Radha Mueller - 01/02/2014 1620 EDT Pt said she need PA for omni pod. Please call documented in this encounter Plan of Treatment Upcoming Encounters Date Type Department Care Team (Late st Contact Info) Description 05/17/2024 13:00 EDT Office Visit [facility] Endocrinology [address] [phone] Twyla Mcclellan NP [address] [place] [phone] 08/30/2024 14:00 EST Office Visit [address] [phone] Twyla Mcclellan NP [address] [place] [phone] documented as of this encounter Visit Diagnoses Not on filedocumented in this encounter Care Teams Wind Site Manager Relationship Specialty Start Date End Date Edmar Temple MD [address] [place] [phone] PCP - General 11/21/13 documented as of this encounter
--- OUTSIDE RECORDS SUMMARY | 2024-04-22 04:28 | XMS_ITS | Encounter Summary ---
Author Organization [facility] Address [address] [place] [address] Care Team Providers Care Automotive Refinish Technician Name Role Phone Phylicia Brown NP Primary Care Provider Reason for Visit * Reason Onset Date Comments Appointment Related 07/12/2013 Encounter Details Date Type Department Care Team (Late st Contact Info) Description 07/12/[address] [facility] Bariatric Surgery - [address] [address] Gustavo Grande, PAJenniferC [address] [place] [address], [facility], [facility] [address] [place] [address] Appointment Related Social History Tobacco Use Types [...] encounter Miscellaneous Notes * Telephone Encounter - Gay Torres - 07/12/2013 1114 EDT Called pt to see if she would like to reschedule the appt she had NOS on 07/03/13 LM on VM asking her to call us back documented in this encounter Plan of Treatment Upcoming Encounters Date Type Department Care Team (Late st Contact Info) Description 05/17/2024 13:00 EDT Office Visit [facility] Endocrinology - [address] [address] Twyla Mcclellan NP [address] [place] [phone] 08/30/2024 14:00 EST Office Visit [address] [address] Twyla Mcclellan NP [address] [place] [phone] documented as of this encounter Visit Diagnoses Not on filedocumented in this encounter Care Teams Automotive Refinish Technician Relationship Specialty Start Date End Date Phylicia Brown NP [address] [place] [phone] PCP - General 09/19/10 11/20/13 documented as of this encounter
--- OUTSIDE RECORDS SUMMARY | 2024-04-22 04:28 | XMS_ITS | Encounter Summary ---
Author Organization [facility] Address [address] [place] [address] Care Team Providers Care Director Dermatology Name Role Phone Phylicia Brown TOOL PLANER SET UP OPERATOR Primary Care Provider Encounter Details Date Type Department Care Team (Late st Contact Info) Description 04/10/2011 Results Only [facility] [phone] Point, Of Care User [address] [place] [address] Social History Tobacco Use Types Packs/Day Years [...] Office Visit [facility] Endocrinology [address] [address] Twyla Mcclellan NP [address] [place] [phone] 08/30/2024 14:00 EST Office Visit [address] [phone] Twyla Mcclellan NP [address] [place] [phone] documented as of this encounter Procedures Procedure Name Priority Date/Time Associated Diagnosis Comments POCT URINALYSIS Routine 04/10/2011 15:23 EDT documented in this encounter Results * (ABNORMAL) POCT URINALYSIS (04/10/2011 15:23 EDT) Color ORANGE [facility] Clarity, UA Clear [facility] Glucose 3+(A) NEG [facility] Bilirubin Neg NEG [facility] Ketones Trace(A) NEG [facility] Specific [place] 1.025 1.001 - 1.035 [facility] Blood Neg NEG [facility] pH 5.5 4.6 - 8.0 [facility] Protein Trace(A) NEG [facility] Urobilinogen 0.2 0.2 - 1.0 E.U./dl [facility] Nitrite Neg NEG [facility] Leuk Esterase Neg NEG NICO ER MIN book canvasser ID [id number] Test performed at [facility] 04/10/2011 15:2 3 EDT 04/10/2011 15:27 EDT Of Care User Point POINT OF CARE TEST O RDERABLES Performing Organization Address City/State/[facility] Co de Phone Number [facility] [address] [place] [address] documented in this encounter Visit Diagnoses Not on filedocumented in this encounter Care Teams Director Dermatology Relationship Specialty Start Date End Date Phylicia Brown NP [address] [place] [phone] PCP - General 09/19/10 11/20/13 documented as of this encounter
--- OUTSIDE RECORDS SUMMARY | 2024-04-22 04:28 | XMS_ITS | Encounter Summary ---
Author Organization [facility] Address [address] [place] [address] Care Team Providers Care Hospice Case Manager Name Role Phone Phylicia Brown NP Primary Care Provider Reason for Visit * Reason Onset Date Comments Appointment Related 11/14/2012 Encounter Details Date Type Department Care Team (Late st Contact Info) Description 11/14/2012 Telephone [facility] Dermatology 3rd [address] [phone] Romi Combs MD [address] [facility], [address] [place] [address] Appointment Related Social History Tobacco [...] encounter Miscellaneous Notes * Telephone Encounter - Shanika Sol RN - 11/15/2012 1584 EST Patient scheduled for ERD 11/16/12 at [address] Yang, EP3. Spoke to Phylicia Brown NP . Informed of appointment date. Requested notes. SHANIKA SOL RN 11/15/2012 15:02 * Telephone Encounter - Romi Combs MD - 11/14/2012 1224 EST Used wallis depilllatory in groin area on Nov 03, 2012. Seen 10 days later by PCP and was concerned for HSV. Came right after exposure to wallis with numerous shallow erosions. Given cephalexin and steroid taper. Used oatmeal Stiz bath and bacitracin. Shoddy nodes are better and patient thinks inflammation is worse. Burning sensation was her primary symptom. Will manage based on history for suspected contact dermatitis vs irritant dermatitis. Recommend longer steroid taper and topical steroids (ointment to consider triamcinolone 0.1%) BID while awaiting appt. Please schedule DANYA. Next available, ERD or resident clinic spot. Romi Combs MD documented in this encounter Plan of Treatment Upcoming Encounters Date Type Department Care Team (Late st Contact Info) Description 05/17/2024 13:00 EDT Office Visit [facility] Endocrinology - [address] [address] Twyla Mcclellan NP [address] [place] [phone] 08/30/2024 14:00 EST Office Visit [facility] Endocrinology - [address] [address] Twyla Mcclellan NP [address] [place] [phone] documented as of this encounter Visit Diagnoses Not on filedocumented in this encounter Care Teams Hospice Case Manager Relationship Specialty Start Date End Date Phylicia Brown NP [address] [place] [phone] PCP - General 09/19/10 11/20/13 documented as of this encounter
--- OUTSIDE RECORDS SUMMARY | 2024-04-22 04:28 | XMS_ITS | Encounter Summary ---
Author Organization [facility] Address [address] [place] [address] Care Team Providers Care Manager News Name Role Phone RossPhylicia Carrizales NP Primary Care Provider Reason for Visit * Reason Comments Obesity POST OP Encounter Details Date Type Department Care Team ([facility] st Contact Info) Description 06/01/2011 13:00 EDT [facility] Visit [facility] Bariatric Surgery [address] [address] Brielle Mendez S, CANE FEEDER [address] [facility] [address] [phone] S/P gastric bypass; Postresectional malabsorption syndrome; DM type 2 (diabetes mellitus, type 2) ([facility]) ([facility]); Morbid obesity ([facility]); Hypothyroid Discharge Disposition: Auto Discharge Social History Tobacco Use Types Packs/Day Years Used Date Smoking Tobacco: Former Cigarettes Q uit: 09/26/2003 Sex and Gender Information Value Date Recorded Sex Assigned at Not on file Gender Identity Not on file Sexual Orientation Not on file documented as of this encounter Last Filed Vital Signs Vital Sign Reading Time Taken Comments Blood Pressure 124/68 06/01/2011 1257 EDT Pulse 56 06/01/2011 1257 EDT Temperature - - Respiratory Rate - - Oxygen Saturation - - Inhaled Oxygen Concentration - - Weight 104.7 kg (230 lb 12.8 oz) 06/01/2011 1257 EDT Height 169.2 cm (5' 6.61) 06/01/2011 1257 EDT Body Mass Index 36.57 06/01/2011 1257 EDT documented in this encounter Functional Status Cognitive Status Response Date of Assessm ent Because of a physical, menta l, or emotional condition, do you have serious difficulty concentrating, remembering, or making decisions? (5 years old or older) Yes 04/15/2011 documented as of this encounter Discharge Disposition Disposition Code Departure Means Destination Auto Discharge documented in this encounter Progress Notes * Vane Bar RD - 06/01/2011 1329 EDT Nutrition Post Op Visit: Gastric Bypass Subjective:delivered a baby girl about 6 weeks ago, wonderful . Unable to breast feed mo milk had insufficient fat and she was unable to tolerate more fat in her diet. Term weight about 255 lb Questionnaire Reviewed: Yes Intolerance Episodes: yes when she increased her fat Food Intolerances: Fatty foods Current Exercise: Walking, biking 3-4 times pr week, hopes to return to weights Reactive Hypoglycemic Symptoms (bypass only): no Objective: Current Weight: Wt Readings from Last 1 Encounters: 06/01/11 104.69 kg (230 lb 12.8 oz) Current BMI: Body mass index is Body mass index is 36.57 kg/(m^2).. Weight Loss since Surgery: 45.4 lb, lost about 25 lb since delivery Weight Change since Last Visit:+9.6 lb Supplement Usage: Type Amount MVT pill B12 pill Calcium w/Vit D pill Iron FeFum B Complex pill Other: colace Recent Labs:A1C 7.3, other labs WNL Assessment: Adequate Meal Frequency: Yes Adequate Meal Composition: Yes Exercise Adequacy: Yes Nutritional Issues: good weight loss post , still has about 10 lb to go at least. Monitoring own blood sugars. Hopes to increase exercise soon to help with weight loss Plan: Continue current diet and exercise Education Provided: None * Brielle Mendez NP - 06/01/2011 1307 EDT 06/01/2011 Kymberly Stewart is here in follow-up to her laparoscopic Alfredo-En-Y gastric bypass (08/07/2009). The weight trend for the patient is 296 pounds at the initial consultation, to 221.2 pounds at the last post-op visit to today's Weight : 104.69 kg (230 lb 12.8 oz). PROBLEM LIST Patient Active Problem List Diagnoses Code ??? Morbid Obesity 278.01 ??? Diabetes 250.00Q ??? Sleep Apnea 780.57C ??? Status Post Gastric Bypass for Obesity V45.86J ??? Hypothyroid 244.9AR ??? Asthma 493.90AE ??? DM (diabetes mellitus), type 2 250.00GF ??? HTN (hypertension) 401.9AF ??? Dyslipidemia 272.4CR ??? ANUPAM (obstructive sleep apnea) 327.23H ??? DM type 2 (diabetes mellitus, type 2) 250.00BD ??? Hyperlipidemia 272.4S ??? PCOS (polycystic ovarian syndrome) 256.4AE ??? Previous section V45.89AFH ??? with other poor obstetric history V23.49 ??? 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 Supervision of high-risk V23.9K ??? Diabetes mellitus, antepartum 648.03 ??? S/P gastric bypass V45.86N SUBJECTIVE: 7 week old baby girl. Reviewed recent labs which were all within acceptable limits except sl low vit D. Asked her to take ca 2 x daily and add 1000 units vit D. Emesis: No complaints of emesis Nausea: No complaints of nausea Increased Volume Tolerance: no Abdominal Pain: No complaints of abdominal pain Lightheadedness: No complaints of lightheadedness Bowel Function: Normal Pannus: No problems related to pannus reported OBJECTIVE: General Appearance: healthy appearing Abdomen: Incision well-healed and Nontender Extremities: Normal Skin: No changes ASSESSMENT: Doing well, Expected course without obvious complications and Vitamin levels within normal limits PLAN: 1. Return to clinic in 6 month(s). 2. Orders Placed This Encounter Procedure ??? Vitamin b1, thiamine Standing Status: Future Number of Occurrences: Standing Expiration Date: 06/01/2012 ??? Creatinine Standing Status: Future Number of Occurrences: Standing Expiration Date: 06/01/2012 ??? Hemagram Standing Status: Future Number of Occurrences: Standing Expiration Date: 06/01/2012 ??? Ferritin Standing Status: Future Number of Occurrences: Standing Expiration Date: 06/01/2012 ??? Calcium Standing Status: Future Number of Occurrences: Standing Expiration Date: 06/01/2012 ??? Vitamin b12 Standing Status: Future Number of Occurrences: Standing Expiration Date: 06/01/2012 ??? Pth intact Standing Status: Future Number of Occurrences: Standing Expiration Date: 06/01/2012 ??? Iron Standing Status: Future Number of Occurrences: Standing Expiration Date: 06/01/2012 ??? Hemoglobin a1c Standing Status: Future Number of Occurrences: Standing Expiration Date: 06/01/2012 ??? Vitamin d (25,oh) Standing Status: Future Number of Occurrences: Standing Expiration Date: 06/01/2012 ??? Tsh Standing Status: Future Number of Occurrences: Standing Expiration Date: 06/01/2012 Seen and discussed with Traffic Engineering Director at this visit. Brielle Mendez NP 06/01/2011 17:31 * Jami Davis - 06/01/2011 1304 EDT 30-Day Plus Bariatric Surgery Postop Questionnaire [...] discharge and suspected reason for admission) No Jami Davis 06/01/2011 13:04 documented in this encounter Plan of Treatment Upcoming Encounters Date Type Department Care Team (Late st Contact Info) Description 05/17/2024 13:00 EDT Office Visit [facility] Endocrinology - [address] [address] Twyla Mcclellan NP [address] [place] [address] [address] [place] [phone] 08/30/2024 14:00 EST Office Visit [facility] Endocrinology - [facility] [address] [place], [place] [phone] Twyla Mcclellan, SACHIN 62 [facility] [address] [place] [phone] documented as of this encounter Visit Diagnoses Diagnosis S/P gastric bypass Bariatric surgery status Postresectional malabsorption syndrome Other and unspecified postsurgical nonabsorption DM type 2 (diabetes mellitus, type 2) ([facility]) Type II or unspecified type diabetes mellitus without mention of complication, not stated as uncontrolled Morbid obesity ([facility]) Morbid obesity Hypothyroid Unspecified hypothyroidism documented in this encounter Discontinued Medications Medication Sig Discontinue Reason Start Date End Da te ibuprofen (MOTRIN) 400 mg tablet Take 1 Tab by mouth every 4 hours as needed for Pain. Therapy completed 04/18/2011 06/01/2011 insulin lispro (HUMALOG) 100 unit/mL injectionIndications: Diabetes ([facility]) Inject into the skin continuous. Therapy completed 11/13/2010 06/01/2011 oxycodone (ROXICODONE) 5 mg immediate release tablet Take 1-2 Tabs by mouth every 4 hours as needed for Pain. Therapy completed 04/18/2011 06/01/2011 phytonadione (VITAMIN K) 10 mg/mL injectionIndications: Supervision of high-risk Inject 1 mL into the skin once a week. To be administered in OB office. Therapy completed 03/26/2011 06/01/2011 PNV WITH CA8/IRON/FA/LMEFOLATE (PNV-IRON ORAL)Indications:preg carlo Take 1 Tab by mouth. Indications: Therapy completed 06/01/2011 documented as of this encounter Historical Medications * This list may reflect changes made after this encounter. Medication Sig Dispensed Refills Start Date End Date metformin (GLUCOPHAGE) 500 mg tabletIndications:S/P gastric bypass,Postresectional malabsorption syndrome,DM type 2 (diabetes mellitus, type 2) ([facility]),Morbid obesity ([facility]),Hypothyroid Take 1,000 mg by mouth 2 times daily with meals. 11/22/2013 added in this encounter Care Teams Manager News Relationship Specialty Start Date End Date Phylicia Brown NP [address] [place] [id number] PCP - General 09/19/10 11/20/13 documented as of this encounter
--- OUTSIDE RECORDS SUMMARY | 2024-04-22 04:28 | XMS_ITS | Encounter Summary ---
Author Organization [facility] Address [address] [place] [address] Care Team Providers Care Phlebotomy Specialist Name Role Phone RossAll Phylicia SACHIN Primary Care Provider Reason for Visit * Reason Comments Obesity Encounter Details Date Type Department Care Team ([facility] st Contact Info) Description 12/01/2011 13:15 EDT Office Visit [facility] Bariatric Surgery [address] [address] Brielle Mendez S, FOOD ORDER EXPEDITER [address] [phone] Status post gastric bypass for obesity; Morbid obesity ([facility]); Postresectional malabsorption syndrome Social History Tobacco Use Types Packs/Day Years Used Date Smoking Tobacco: Former Cigarettes Q uit: 09/26/2003 Sex and Gender Information Value Date Recorded Sex Assigned at Not on file Gender Identity Not on file Sexual Orientation Not on file documented as of this encounter Last Filed Vital Signs Vital Sign Reading Time Taken Comments Blood Pressure 124/80 12/01/2011 1313 EDT Pulse 68 12/01/2011 1313 EDT Temperature - - Respiratory Rate - - Oxygen Saturation - - Inhaled Oxygen Concentration - - Weight 111.7 kg (246 lb 3.2 oz) 12/01/2011 1313 EDT Height 169.2 cm (5' 6.61) 12/01/2011 1313 EDT Body Mass Index 39.01 12/01/2011 1313 EDT documented in this encounter Functional Status Cognitive Status Response Date of Assessm ent Because of a physical, menta l, or emotional condition, do you have serious difficulty concentrating, remembering, or making decisions? (5 years old or older) Yes 04/15/2011 documented as of this encounter Progress Notes * Brielle Mendez NURSE REVIEWER - 12/01/2011 1322 EDT 12/01/2011 Kymberly Stewart is here in follow-up to her laparoscopic Alfredo-En-Y gastric bypass. The weight trend for the patient is: Weight at initial consult: 134.265 kg (296 lb), to 230 at the last post-op visit to today's Weight : 111.676 kg (246 lb 3.2 oz). PROBLEM LIST Patient Active Problem List Diagnoses ??? Morbid Obesity ??? Diabetes ??? Sleep Apnea ??? Status post gastric bypass for obesity ??? Hypothyroid ??? Asthma ??? DM (diabetes mellitus), type 2 ??? HTN (hypertension) ??? Dyslipidemia ??? ANUPAM (obstructive sleep apnea) ??? DM type 2 (diabetes mellitus, type 2) ??? Hyperlipidemia ??? PCOS (polycystic ovarian syndrome) ??? Previous section ??? with other poor obstetric history ??? Postresectional malabsorption syndrome ??? Supervision of high-risk ??? Diabetes mellitus, antepartum ??? S/P gastric bypass SUBJECTIVE: Only taking 1 calc daily and 2000 units vitamin D. Discussed lab results with secondaryhyperpara and suggested calcium citrate 500mg 2 - 3 x daily with repeat labs in 2 months. Emesis: No complaints of emesis Nausea: No complaints of nausea Increased Volume Tolerance: no Abdominal Pain: No complaints of abdominal pain Lightheadedness: No complaints of lightheadedness Bowel Function: Normal Pannus: No problems related to pannus reported OBJECTIVE: General Appearance: healthy appearing and in no apparent distress Abdomen: Incision well-healed and Nontender Extremities: Normal Skin: No changes ASSESSMENT: Doing well, Weight Loss: fair , Due to: lack of exercise and Post-operative assessment: Secondary hyperparathyroidism PLAN: 1. Return to clinic in 6 month(s). 2. Orders Placed This Encounter Procedures ??? Vitamin D (25,OH) Standing Status: Future Number of Occurrences: Standing Expiration Date: 11/30/2012 ??? PTH Intact Standing Status: Future Number of Occurrences: Standing Expiration Date: 11/30/2012 ??? Calcium Standing Status: Future Number of Occurrences: Standing Expiration Date: 11/30/2012 ??? Creatinine Standing Status: Future Number of Occurrences: Standing Expiration Date: 11/30/2012 Seen and discussed with [facility] at this visit. Brielle Mendez NP 12/01/2011 14:15 * Vane Bar, RD - 12/01/2011 1317 EDT Nutrition Post Op Visit: Gastric Bypass Subjective:less exercise with balancing baby, job, etc. Had sinus infection most of the winter withsugars running higher. Questionnaire Reviewed: Yes Intolerance Episodes: yes rarely with dry meat, sometimes chicken or fish Food Intolerances: dry meats Current Exercise: Some walking 2-3 times per week Reactive Hypoglycemic Symptoms (bypass only): no Objective: Current Weight: Wt Readings from Last 1 Encounters: 12/01/11 111.676 kg (246 lb 3.2 oz) Current BMI: Body mass index is Body mass index is 39.01 kg/(m^2).. Total Weight Loss: Total Loss in lbs (Weight from Initial Consult - Today's Weight): 49.8 lbs Weight Change since Last Visit:+15.4 lb in 6 months!, since surgery lost 53.2 lb Supplement Usage: Type Amount MVT B12 Calcium w/Vit D 1 Iron FeFum B Complex Vit D 2000 IU Recent Labs: A1C 8.6!, PTH slightly elevated with good Vit D, MCV low despite OK iron and ferritin Assessment: Adequate Meal Frequency: Yes Adequate Meal Composition: Yes Exercise Adequacy: No Nutritional Issues: large weight regain this year! Strongly encouraged her to restart exercise. Reviewed basics of weight loss and provided her a handout with pouch diet and a 1200 kennedi template to follow. Advised she increase her calcium and change to citrate to help Reduce her PTH. Iron indices confusing with low MCV and good H/H, iron and ferritin. A1C elevated-advised carb control 30-40 gr permeal only Plan: Change intake-1200 kennedi with 30-40 gr carb per meal Increase exercise Supplement Changes -change to calcium citrate, increase to 2 per day Initiate food logs Education Provided: Weight Control -handout provided * Lizzie Duong - 12/01/2011 1315 EDT 30-Day Plus Bariatric Surgery Postop Questionnaire [...] discharge and suspected reason for admission) No Lizzie Duong RN 12/01/2011 13:15 documented in this encounter Plan of Treatment Upcoming Encounters Date Type Department Care Team (Late st Contact Info) Description 05/17/2024 13:00 EDT Office Visit [facility] Endocrinology - [address] [phone] Twyla Mcclellan NP [address] [place] [phone] 08/30/2024 14:00 EST Office Visit [facility] Endocrinology [address] [address] Twyla Mcclellan NP [address] [place] [phone] documented as of this encounter Visit Diagnoses Diagnosis Status post gastric bypass for obesity Bariatric surgery status Morbid obesity ([facility]) Morbid obesity Postresectional malabsorption syndrome Other and unspecified postsurgical nonabsorption documented in this encounter Discontinued Medications Medication Sig Discontinue Reason Start Date End Da te docusate sodium (COLACE) 100 mg capsule Take 1 Cap by mouth 2 times daily as needed for Constipation. Patient Stopped Taking 04/18/2011 12/01/2011 documented as of this encounter Historical Medications * This list may reflect changes made after this encounter. Medication Sig Dispensed Refills Start Date End Date Cholecalciferol, Vitamin D3, 50 mcg capsuleIndications:Status post gastric bypass for obesity,Morbid obesity ([facility]),Postresectional malabsorption syndrome Take 1 Capsule by mouth daily. added in this encounter Care Teams Phlebotomy Specialist Relationship Specialty Start Date End Date Phylicia Brown NP [address] [place] [id number] PCP - General 09/19/10 11/20/13 documented as of this encounter
--- OUTSIDE RECORDS SUMMARY | 2024-04-22 04:28 | XMS_ITS | Encounter Summary ---
Author Organization [facility] Address [address] [place] [address] Care Team Providers Care Lofter Name Role Phone Edmar Temple MD Primary Care Provider [phone] Reason for Visit * Reason Onset Date Comments Paperwork request 01/10/2014 letter of med necessity, omni pod Paperwork request 01/10/2014 Encounter Details Date Type Department Care Team (Late st Contact Info) Description 01/10/[address] [facility] Endocrinology - [facility] [address] [place] [address] Shanika Aquino NP [address] [facility] [address] [place] [phone] Paperwork request (letter of med necessity, omni pod ); Paperwork request Social History Tobacco Use Types Packs/Day Years [...] * Telephone Encounter - Jennifer Maria - 01/11/2014 1029 EDT I have the paperwork in hand now, I am filling it out and will be faxing by end of day today. * Telephone Encounter - Dedra Silver - 01/10/2014 1640 EDT Pt calling back with info where letter needs to be sent. [employer] [facility] fax # [phone]. Please call pt with any questions. * Telephone Encounter - Izabel Hernandez - 01/10/2014 1638 EDT Pt is needing a letter of medical necessity to get her omni pod and said it has already been approved but she needs the letter. Pt said the phone# at omni pod is to find out where the letter needs to be sent, but also said she will try calling back with a fax#. documented in this encounter Plan of Treatment Upcoming Encounters Date Type Department Care Team (Late st Contact Info) Description 05/17/2024 13:00 EDT Office Visit [facility] Endocrinology - [address] [phone] Twyla Mcclellan NP [address] [place] [phone] 08/30/2024 14:00 EST Office Visit [facility] Endocrinology - [address] [address] Twyla Mcclellan NP [address] [place] [phone] documented as of this encounter Visit Diagnoses Not on filedocumented in this encounter Care Teams Lofter Relationship Specialty Start Date End Date Edmar Temple MD [address] [place] [address] [address] [place] [address] PCP - General 11/21/13 documented as of this encounter
--- OUTSIDE RECORDS SUMMARY | 2024-04-22 04:28 | XMS_ITS | Encounter Summary ---
Author Organization [facility] Address [address] [place] [address] Care Team Providers Care Dairy Laboratory Technician Name Role Phone RossAll Phylicia SACHIN Primary Care Provider Reason for Visit * Reason Comments Routine Visit Encounter Details Date Type Department Care Team (Late st Contact Info) Description 04/10/2011 14:15 EDT Routine [facility] Obstetrics & Midwifery - [facility] [address] [place], [place] [phone] Viet Vann MD [address] [facility], [address] [place] [address] GA: 38w5d Social History Tobacco Use Types Packs/Day Years Used Date Smoking Tobacco: Former Cigarettes Q uit: 09/26/2003 Comments Yes Sex and Gender Information Value Date Recorded Sex Assigned at Not on file Gender Identity Not on file Sexual Orientation Not on file documented as of this encounter Last Filed Vital Signs Vital Sign Reading Time Taken Comments Blood Pressure 128/80 04/10/2011 1407 EDT Pulse - - Temperature - - Respiratory Rate - - Oxygen Saturation - - Inhaled Oxygen Concentration - - Weight 116.6 kg (257 lb) 04/10/2011 1407 EDT Height - - Body Mass Index 40.24 01/09/2011 1200 EDT documented in this encounter Progress Notes * Kareen Ryan - 04/10/2011 1550 EDT Recent Labs Basename 04/10/11 1523 ??? COLOR ORANGE ??? CLARITYU Clear ??? GLUCOSEUAPOC 3+* ??? BILIRUBIN Neg ??? KETONES Trace* ??? SPECGRAV 1.025 ??? BLOOD Neg ??? PHUA 5.5 ??? PROTEINUAPOC Trace* ??? UROBILINOGEN 0.2 ??? NITRITE Neg ??? LEUKESTER Neg * Viet Vann MD - 04/10/20111537 EDT Diabetes mellitus, antepartum - Viet Vann MD 04/10/111534 Signed Her blood sugars are controlled according to her. She is using an insulin pump. Her midnight basal rate is 1.4 units, and we will reduce that to 1.0 units as she will be coming inN. Her is next Wednesday. Supervision of high-risk - Viet Vann MD 04/10/111537 Signed She has no c/o. Good movements. O: see vitals A: Doing well at 38w5d with diabetes and s/p gastric bypass P: on Wednesday. Viet Vann MD 04/10/2011 15:38 documented in this encounter Miscellaneous Notes * Assessment & Plan Note - Veit Vann MD - 04/10/20111537 EDTAssociated Problem(s): Supervision of high-risk She has no c/o. Good movements. O: see vitals A: Doing well at 38w5d with diabetes and s/p gastric bypass P: on Wednesday. * Assessment & Plan Note - Viet Vann MD - 04/10/20111534 EDTAssociated Problem(s): Diabetes mellitus in , antepartum Her blood sugars are controlled according to her. She is using an insulin pump. Her midnight basal rate is 1.4 units, and we will reduce that to 1.0 units as she will be coming inN. Her is next Wednesday. documented in this encounter Plan of Treatment Upcoming Encounters Date Type Department Care Team (Late st Contact Info) Description 05/17/2024 13:00 EDT Office Visit [facility] Endocrinology - [address] [address] Twyla Mcclellan NP [address] [place] [phone] 08/30/2024 14:00 EST Office Visit [address] [address] Twyla Mcclellan NP [address] [place] [phone] documented as of this encounter Visit Diagnoses Diagnosis Previous section Other postprocedural status with other poor obstetric history(V23.49) with other poor obstetric history HTN (hypertension) Unspecified essential hypertension Asthma Unspecified asthma Hypothyroid Unspecified hypothyroidism Diabetes ([facility]) Type II or unspecified type diabetes mellitus without mention of complication, not stated as uncontrolled Status post gastric bypass for obesity Bariatric surgery status Supervision of high-risk Unspecified high-risk documented in this encounter Orders Lab Orders Without Results Count Last Ordered D ate First Ordered Date POCT URINE DIPSTICK 1 04/10/2011 documented in this encounter Care Teams Dairy Laboratory Technician Relationship Specialty Start Date End Date Phylicia Brown NP [address] [place] [phone] PCP - General 09/19/10 11/20/13 documented as of this encounter
--- OUTSIDE RECORDS SUMMARY | 2024-04-22 04:28 | XMS_ITS | Encounter Summary ---
Author Organization [facility] Address [address] [place] [address] Care Team Providers Care Warm In Worker Name Role Phone Phylicia Brown NP Primary Care Provider Reason for Visit * Reason Onset Date Comments Other 07/20/2013 Encounter Details Date Type Department Care Team (Late st Contact Info) Description 07/20/2013 Telephone [facility] Bariatric Surgery - [address] [address] Gustavo Grande, HUONGC [address] [facility], [facility], [facility] [address] [place] [address] Other Social History Tobacco Use Types Packs/Day [...] encounter Miscellaneous Notes * Telephone Encounter - Susana Iqbal - 07/20/2013 1251 EDT I called and LM on re: RUST yearly visit with bariatric clinic. Left call back info. documented in this encounter Plan of Treatment Upcoming Encounters Date Type Department Care Team (Late st Contact Info) Description 05/17/2024 13:00 EDT Office Visit [facility] Endocrinology [address] [address] Twyla Mcclellan NP [address] [place] [phone] 08/30/2024 14:00 EST Office Visit [address] [address] Twyla Mcclellan NP [address] [place] [phone] documented as of this encounter Visit Diagnoses Not on filedocumented in this encounter Care Teams Warm In Worker Relationship Specialty Start Date End Date Phylicia Brown NP [address] [place] [phone] PCP - General 09/19/10 11/20/13 documented as of this encounter
--- OUTSIDE RECORDS SUMMARY | 2024-04-22 04:28 | XMS_ITS | Encounter Summary ---
Author Organization [facility] Address [address] [place] [address] Care Team Providers Care Csm Consultant Name Role Phone Phylicia Brown SACHIN Primary Care Provider Reason for Visit * Reason Comments Scheduled repeat c/s and btl p lanned Encounter Details Date Type Department Care Team (Late st Contact Info) Description 04/14/2011 8:07 EDT - 04/18/2011 16:35 EDT Hospital Encounter [facility] Mother/Baby Unit [address] [place] [address], [place] [id number] Kelsi Chambers MD Nielsen, Brian W, MD [address] [place] [address] [place] [id number] Susi Powell MD [address] [facility], [address] [place] [address] Diabetes ([facility]) ([facility]) Discharge Disposition: Home or Self Care Social History Tobacco Use Types Packs/Day Years Used Date Smoking Tobacco: Former Cigarettes Q uit: 09/26/2003 Sex and Gender Information Value Date Recorded Sex Assigned at Not on file Gender Identity Not on file Sexual Orientation Not on file documented as of this encounter Last Filed Vital Signs Vital Sign Reading Time Taken Comments Blood Pressure 135/60 04/18/2011 0900 EDT Pulse 69 04/18/2011 0900 EDT Temperature 36.9 ??C (98.4 ??F) 04/18/2011 0900 EDT Respiratory Rate 18 04/18/2011 0900 EDT Oxygen Saturation 96% 04/18/2011 0900 EDT Inhaled Oxygen Concentration - - Weight 116 kg (255 lb 11.7 oz) 04/14/2011 1025 E DT Height 170 cm (5' 6.93) 04/14/2011 1025 EDT Body Mass Index 40.14 04/14/2011 1025 EDT documented in this encounter Functional Status Cognitive Status Response Date of Assessm ent Because of a physical, menta l, or emotional condition, do you have serious difficulty concentrating, remembering, or making decisions? (5 years old or older) Yes 04/15/2011 documented as of this encounter Discharge Summaries * Isaura Xiao - 04/14/2011 1427 EDT Department of NURSE LDR MATERNAL DISCHARGE SUMMARY . . Maternal Name: Kymberly Stewart : 1975 Attending: Susi Powell MD Admission: 04/14/2011 Discharge: 04/18/2011 Reason for Admission: Scheduled elective repeat section and bilateral tubal ligation 36 y/o 2 para 1001 at 39+2/7 weeks gestation. Patel. 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: Other; Thyroid Dysfunction: Other Comments: Hypothyroidism, Sleep apnea, dyslipidemia, morbid obesity Surg - 2009: [facility] Gynecological Sexually Transmitted Diseases: None; Comments: PCOS Obstetrical Prior Section: 1; Upper Segment or T Incision Comments: 2005: LTCS for NRFA following IOL for PROM, 38wk, Class B Type 2 DM, 8#2 CURRENT HISTORY (HPI): Disorders diagnosed during current Medical Substance Abuse: None; Smoking: None; Sexually Transmitted Diseases: None 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; Bleeding - First Trimester Comments: Subchorionic hemorrhage : Suspected Macrosomia; Polyhydramnios Medications during current : None Maternal Labs: O+; Antibody screen: Neg; Rubella titer: Immune; Syphilis Screening: Neg; Gonorrhea Screening: Neg; Chlamydia Screening: Neg; Hepatitis B screen: Neg; Hepatitis C screen: Not Done; HIV: Neg LABOR INFORMATION Labor Onset: None - C/S without labor; Delivery Indication: Elective GBS Status: Positive: culture within 4 weeks; GBS Prophylaxis: None Labor Analgesia: None; Labor & Delivery Medications: Antibiotics for section prophylaxis, Post Oxytocin, Other VTX; LOT Intermittent auscultation only; FHR Pattern: Normal Amniotic Fluid Color: Thin meconium; Duration Rupture of Membranes: <12 Comments: Patient controlled insulin pump at 1 unit Novalog per hour during the C/S. DELIVERY INFORMATION Section Delivery; Type of Section: Lower Segment Transverse Major Indication: Elective Repeat Patient Choice Candidate; Delivery / Repair Anesthesia: Combined spinal / epidural; EBL: 500-1000 Placenta: Delivery Method: Spontaneous; Configuration: Normal Labor and Delivery Complications and/or Procedures: None INFORMATION Weight: 4281 grams Sex: Female Delivery Date: 04/14/2011 Delivery Time: 1211 Apgars: 71 , 95 : uncomplicated, mildly elevated BPs post- Additional Comments: none Diet Activity: regular, as tolerated, nothing per vagina X6w Discharge Medications / Dosage: tylenol, ibuprofen, colace, oxycodone Other Problems / Discharge Diagnoses Follow-Up Plan for each Problem: Pt is s/p bilateral tubal ligation. Pt verbalized understanding of S/Sx of post- depression and will follow-up with her PCPif sx occur. Pt will follow up with her PCP for management of her hypothyroidism, stable depression, elevated blood pressures post , IDDM, and nutritional needs for hx of gastric bypass surgery. Condition at Discharge: good Discharge Disposition: [X] Home documented in this encounter Discharge Instructions * Discharge Instructions* Isaura Xiao - 04/18/2011 6:27 EDT Images from the original note were not included. Diet: Diabetic Activity: Rest and recover at home for 2 weeks, then gradually increase activity. Do not lift anything heavier than the baby for two weeks You had a . Do not drive for 2 weeks and limit stair climbing. Skin/Wound Care: Okay to get wound wet, but pat dry. Do NOT rub the wound area. Let Steri-Strips fall off on their own. Call your provider for problems with stiches, redness, pain, drainage or if stiches pull apart. Remove Steri-Strips in 7 days Bathing: No bath or immersion for 2 weeks Control: You have undergone a tubal ligation for permanent control. This method of control does not protect against sexually transmitted disease. Pending Results: Not applicable Symptoms to Call Your Doctor About: Abdominal pain different from the cramping or afterpains following the Foul smelling vaginal discharge Pain or redness in your breasts, excessive nipple soreness or problems with breast feeding. Please notify your doctor or nursing home admissions director if you feel overwhelmingly sad, guilty, angry, or depressed, as these might be symptoms of post- depression, which can be treated. Redness, swelling or drainage from wound Temperature greater than 100.5 degrees F (38.1 degrees C) Vaginal bleeding heavier than a period, soaking greater than 1 pad per hour or a return of heavy bleeding after it has slowed down You blood pressure is greater than 160/100 Appointments: See Dr. PHYLICIA BROWN MD in 1 weeks. Please call for an appointment. You will need to check with her about blood pressure management as well as your diabetes. 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 Call for an appointment. Follow-up Services Contacted at Discharge: none Health Risk and Disease Information: Not applicable [facility] Patient Instructions Section: What to Expect at Home Your Recovery A section, or , is surgery to deliver your baby through a cut, called an incision, that the doctor makes in your lower belly and uterus. You may have some pain in your lower belly and need pain medicine for 1 to 2 weeks. You can expect some vaginal bleeding for several weeks. You will probably need about 6 weeks to fully recover. It is important to take it easy while the incision is healing. Avoid heavy lifting, strenuous activities, or exercises that strain the belly muscles while you are recovering. Ask a family member or friend for help with housework, cooking, and shopping. This care sheet gives you a general idea about how long it will take for you to recover. But each person recovers at a different pace. Follow the steps below to get better as quickly as possible. How can you care for yourself at home? Activity ?? Rest when you feel tired. Getting enough sleep will help you recover. ?? Try to walk each day. Start by walking a little more than you did the day before. Bit by bit, increase the amount you walk. Walking boosts blood flow and helps prevent pneumonia, constipation, andblood clots. ?? Avoid strenuous activities, such as bicycle riding, jogging, weightlifting, and aerobic exercise, for 6 weeks or until your doctor says it is okay. ?? Until your doctor says it is okay, do not lift anything heavier than your baby. ?? Do not do sit-ups or other exercises that strain the belly muscles for 6 weeks or until your doctor says it is okay. ?? Hold a pillow over your incision when you cough or take deep breaths. This will support your belly and decrease your pain. ?? You may shower as usual. Pat the incision dry when you are done. ?? You will have some vaginal bleeding. Wear sanitary pads. Do not douche or use tampons until yourdoctor says it is okay. ?? Ask your doctor when you can drive again. ?? You will probably need to take at least 6 weeks off work. It depends on the type of work you do and how you feel. ?? Ask your doctor when it is okay for you to have sex. Diet ?? You can eat your normal diet. If your stomach is upset, try bland, low-fat foods like plain rice, broiled chicken, toast, and yogurt. ?? Drink plenty of fluids (unless your doctor tells you not to). ?? You may notice that your bowel movements are not regular right after your surgery. This is common. Try to avoid constipation and straining with bowel movements. You may want to take a fiber supplement every day. If you have not had a bowel movement after a couple of days, ask your doctor about taking a mild laxative. ?? If you are breast-feeding, do not drink any alcohol. Medicines ?? Take pain medicines exactly as directed. ?? If the doctor gave you a prescription medicine for pain, take it as prescribed. ?? If you are not taking a prescription pain medicine, ask your doctor if you can take an [id number] medicine. ?? If you think your pain medicine is making you sick to your stomach: ?? Take your medicine after meals (unless your doctor has told you not to). ?? Ask your doctor for a different pain medicine. ?? If your doctor prescribed antibiotics, take them as directed. Do not stop taking them just because you feel better. You need to take the full course of antibiotics. Incision care ?? If you have strips of tape on the incision, leave the tape on for a week or until it falls off. ?? Wash the area daily with warm, soapy water, and pat it dry. Don't use hydrogen peroxide or alcohol, which can slow healing. You may cover the area with a gauze bandage if it weeps or rubs against clothing. Change the bandage every day. ?? Keep the area clean and dry. Other instructions ?? If you breast-feed your baby, you may be more comfortable while you are healing if you place thebaby so that he or she is not resting on your belly. Try tucking your baby under your arm, with hisor her body along the side you will be feeding on. Support your baby's upper body with your arm. With that hand you can control your baby's head to bring his or her mouth to your breast. This is sometimes called the football hold. Follow-up care is a rice part of your treatment and safety. Be sure to make and go to all appointments, and call your doctor if you are having problems. It???s also a good idea to know your test results and keep a list of the medicines you take. When should you call for help? Call 911 anytime you think you may need emergency care. For example, call if: ?? You passed out (lost consciousness). ?? You have severe trouble breathing. ?? You have sudden chest pain and shortness of breath, or you cough up blood. ?? You have severe pain in your belly. Call your doctor now or seek immediate medical care if: ?? You have bright red vaginal bleeding that soaks one or more pads each hour for 2 or more hours. ?? Your vaginal bleeding seems to be getting heavier or is still bright red 4 days after delivery. ?? You pass blood clots larger than the size of a golf ball. ?? You have vaginal discharge that smells bad. ?? You are sick to your stomach or cannot keep fluids down. ?? You have pain that does not get better after you take pain medicine. ?? You have loose stitches, or your incision comes open. ?? Your belly feels tender, or full and hard. ?? You have signs of infection, such as: ?? Increased pain, swelling, warmth, or redness. ?? Red streaks leading from the incision. ?? Pus draining from the incision. ?? Swollen lymph nodes in your neck, armpits, or groin. ?? A fever. ?? You have signs of a blood clot, such as: ?? Pain in your calf, back of the knee, thigh, or groin. ?? Redness and swelling in your leg or groin. ?? You have trouble passing urine or stool, especially if you have pain or swelling in your lower belly. ?? You feel sad, tearful, or hopeless for more than a few days, or you have troubling or dangerous thoughts. Watch closely for changes in your health, and be sure to contact your doctor if: ?? You do not get better as expected. Where can you learn more? Go to www.[employer].net/fahc Enter M806 in the search box to learn more about Section: What to Expect at Home. ?? [id number] [employer]. Care instructions adapted under license by [facility], [facility]. This care instruction is for use with your licensed healthcare professional. If you have questions about a medical condition or this instruction, always ask your healthcare professional. [employer] disclaims any warranty or liability for your use of this information. Content Version: 8.9.04693; Last Revised: August 21, 2010 documented in this encounter Medications at Time of Discharge Medication Sig Dispensed Refills Start Date End Date acetaminophen (TYLENOL) 325 mg tablet Take 1-2 Tabs by mouth every 4 hours as needed for Pain. 04/18/2011 CALCIUM CARBONATE/VITAMIN D3 (CALCIUM WITH VITAMIN D ORAL) Take by mouth daily. citalopram (CELEXA) 20 mg tablet Take 1 Tab by mouth daily. 30 Tab 2 11/28/2010 CYANOCOBALAMIN (VITAMIN B-12 ORAL) Take by mouth daily. FERROUS FUMARATE (IRON ORAL) Take 1 Cap by mouth daily. 06/01/2011 MULTIVITAMIN ORALIndications:Morbi d obesity ([facility]),DM (diabetes mellitus), type 2 ([facility]),HTN (hypertension),Status post gastric bypass for obesity,PCOS (polycystic ovarian syndrome),Malabsorpti on syndrome,Hypothyroid Take by mouth daily. 06/30/2010 VITAMIN B COMPLEX ORAL Take by mouth daily. docusate sodium (COLACE) 100 mg capsule Take 1 Cap by mouth 2 times daily as needed for Constipation. 60 Cap 0 04/18/2011 12/01/2011 ibuprofen (MOTRIN) 400 mg tablet Take 1 Tab by mouth every 4 hours as needed for Pain. 04/18/2011 06/01/2011 insulin lispro (HUMALOG) 100 unit/mL injectionIndications: Diabetes ([facility]) Inject into the skin continuous. 11/13/2010 06/01/2011 levothyroxine (SYNTHROID) 25 mcg tablet Take 25 mcg by mouth daily. 11/22/2013 oxycodone (ROXICODONE) 5 mg immediate release tablet Take 1-2 Tabs by mouth every 4 hours as needed for Pain. 30 Tab 0 04/18/2011 06/01/2011 phytonadione (VITAMIN K) 10 mg/mL injectionIndications: Supervision of high-risk Inject 1 mL into the skin once a week. To be administered in OB office. 1 Ampule 10 03/26/2011 06/01/2011 PNV WITH CA8/IRON/FA/LMEFOLATE (PNV-IRON ORAL)Indications:preg carlo Take 1 Tab by mouth. Indications: 1 documented as of this encounter Ordered Prescriptions Prescription Sig Dispensed Refills Start Date End Da te docusate sodium (COLACE) 100 mg capsule Take 1 Cap by mouth 2 times daily as needed for Constipation. 60 Cap 0 04/18/2011 12/01/2011 oxycodone (ROXICODONE) 5 mg immediate release tablet Take 1-2 Tabs by mouth every 4 hours as needed for Pain. 30 Tab 0 04/18/2011 06/01/2011 documented in this encounter Discharge Disposition Disposition Code Departure Means Destination Home or Self Care documented in this encounter Progress Notes * Maximo Sims MD - 04/18/2011 0681 EDT R4 Progress Note Cc: POD#4 s/p R-C/S S: Doing well this am. Anxious to go home. Denies CP/SOB/n/v. O BP 149/63 Pulse 65 Temp(Src) 36.5 ??C (97.7 ??F) (Temporal) Resp 16 Ht 170 cm (66.93) Wt 116 kg (255 lb 11.7 oz) BMI 40.14 kg/m2 SpO2 96% ? Unknown GEN no apparent distress, Patient is alert and oriented times three. CV regular rate and rhythm PULM Clear to auscultation bilaterally ABD soft, non-tender, non-distended, ff 2 below u INC c/d/i, rodrigo removed. No drainage, induration or erythema EXT wwp, non-tender, 2+ edema A/P Kymberly Stewart is a 36 y.o. POD#4 s/p R-C/S @ 39w2d. Mildly elevated BPs in last 24 hours, o/w AVSS. #DM -Managed by PCP. Has f/u this week and will call with any concerns prior to that #HTN -Will check at home. To call with BP >160/100. Has been on anti-hypertensives previously. Suspect related to post-op/post- diuresis. To follow-up with PCP at visit next week #Dispo -Home today. -PP Depression previously d/w patient Isaura Xiao MD PGY-4 Obstetrics & Gynecology 04/18/2011 7:01 MFM Fellow Pt seen and examined. Agree with Dr. Xiao's assessment and plan. POD #4 s/p RC/S. No complaints. Some elevated BPs, most recent normal. No symptoms. Good glycemic control. Agree with D/C today. Maximo Sims MD * Kelsi Chambers MD - 04/17/2011 6645 EDT Later entry Asked to check incision by her nurse who felt that it was oozy and red. Examined incision- no fluctuance or any fluid expressed after pressure on incision. Appears intact Reassured. Will take rodrigo out tomorrow prior to discharge * Angely Mari - 04/17/2011 0600 EDT MSIV MFM AI PN CC: S/P repeat elective LTCS & BTL; POD 3 Subjective: S: Mod. Lochia. +BM & voiding well; Tolerating regular diet; +Ambulation. Slight headache last night and it was somewhat relieved by Tylenol. Per pt since gastric bypass in 2008 had not needed HTN meds and throughout preg has had normal BPs. Neg. Vision changes, RUQ pain, epigastric pain, fevers/chills, abdominal pain. Per fasting sugar this am: 81; Post prandial dinner (04/16): 98; Pre-meal (04/16): 69 Daughter has returned from NICU for hypoglycemia. BF is going well Wants to leave tomorrow. Objective: BP 148/68 Pulse 64 Temp(Src) 36.4 ??C (97.5 ??F) (Temporal) Resp 18 Ht 170 cm (66.93) Wt116 kg (255 lb 11.7 oz) BMI 40.14 kg/m2 SpO2 98% : yes BP @ 1800 on 04/16: 148/72 Gen: NAD, AOx3 CV: RRR, no m/r/g Lungs: CTAB Abd: +BS, Fundus to left 1 cm below umbilicus Ext: WWP, +DP/PT pulses Labs: 04/16/2011 12:25 Glucose, Fingerstick 88 UOP: 800 cc/4h; last recorded [id number] (04/16) Assessment/Plan: Kymberly Stewart is a 36 y.o. POD: 2 s/p CS 39w2d, recovering well. Pt has had elevated BP's and is largely asymptomatic. Will cont. To monitor for s/s of preeclampsia. Care --Monitor for s/s preeclampsia --Continue routine postpartem care --Pain management: Pain is well controlled on oral medication -- depression: s/s discussed -- support: consult as needed --Contraception: s/p b/l tubal ligation DM, Type C --Cont. FS before meals and qh; 0.5 units/h 1:15 insulin/carb ratio. Will monitor sugars. Currentlywell controlled --Carb. Consistent diet Hypothyroidism --Cont. On home regimen Synthyroid 25 mcg daily Hx of Gastric Bypass --Cont on B12, B vit, calcium, iron supplementation Hx of Chronic HTN --Will monitor BPs and currently WNL. Consider treating with anti-hypertensives if BP >140/>100. Pt to f/u with PCP in first week April in regard to BP and other chronic illnesses. Depression --Cont. Pt's home dose of citalopram & pt aware of s/s depression Dispo POD 3/4. TEMI Lang, RAUL AI 04/17/2011 * Kelsi Chambers MD - 04/17/2011 0552 EDT R2 PN POD3 s/p repeat section with BTL S: Doing well. Min lochia. BF well. Tolerates diet. Ambulating. Voiding on her own. +flatus. DeniesN/V/CP/SOB/calf pain. Had a DESAI last night which resolved with tylenol/motrin, has a mild DESAI this am. O: BP 148/68 Pulse 64 Temp(Src) 36.4 ??C (97.5 ??F) (Temporal) Resp 18 Ht 170 cm (66.93) Wt 116 kg (255 lb 11.7 oz) BMI 40.14 kg/m2 SpO2 98% ? Unknown No intake or output data in the 24 hours ending 04/17/11 0552 Gen: NAD CV: RRR Resp: CTAB Abd: Soft, NT, fundus firm 1cm below the umb Incision: c/d/i, rodrigo in place Ext: NT, 2+ edema bilaterally Lab Results Component Value Date WBC 13.58* 04/15/2011 WBC 7.67 11/08/2009 HGB 11.9 04/15/2011 HGB 12.7 11/08/2009 HCT 35.0 04/15/2011 HCT 38.0 11/08/2009 MCV 82 04/15/2011 MCV 77* 11/08/2009 PLT 190 04/15/2011 PLT 222 11/08/2009 A/P: 36yo POD3 s/p repeat LTCS and BTL, doing well, afebrile, mild HTN. *Routine PP care. Encourage ambulation. Support BF. *Class C DM: BS fairly well controlled, no apparent fasting yesterday, pre- prandial BS 88-166. - appreciate endocrine - cont basal 0.5u/hr with 1:15 carb ratio - cont fasting, pre-prandial, and qhs fingersticks *Post-op hct 35.0 *Elevated BPs: mildly elevated BPs, 140s/60s-70s. Most likely due to fluid mobilization in a patient with poorly compliant vessels at baseline. Pt with a mild DESAI. If pressures persist or pt becomes more symptomatic, will draw labs. *PP Depression: s/sx discussed. *Contraception: BTL *DISPO: tomorrow Desi Nelson MD OB Attending : I saw and examined the patient and discussed findings with the residents . I agree with the above assessment and plan of care. Kelsi Chambers MD ,9:14 * Pam Copeland - 04/16/2011 8086 EDT Brief Assessment Case Management and Social Work reviewed the patient's chart, face sheet and nursing documentation and has discussed the patient's situation with the medical team. Met with Miguelina yesterday and today as she was holding Audrey. She is thrilled about her and although disappointed that she has to be in the NICU is grateful for the care she is getting. She resides in [facility] with her and their son (age 6). They are hopeful that Audrey can go to the [facility] before mom's discharge. Provided mom with a script and information on a breast pump rental if needed. She has a Medela Pump in Style at home. Reviewed resources available to family; will follow for needs while in the NICU. Please page the outsole caser if utilization review or discharge planning issues arise or if there are barriers to the patient's discharge. Machine Hoop Maker: MICHELLE Larson * Angely Mari - 04/16/2011 0602 EDT MSIV MFM AI PN CC: S/P repeat elective LTCS & tubal ligation Subjective: S: Feeling well. Decreasing lochia. +Flatus. Neg. BM. Asked for constipation meds. Voiding well. Tolerating regular diet. Per pt she verbally discussed with Dr. Sepulveda changing insulin to 0.5 units/h & mealtime bolus 1:15 which she is on now. Endocrine consult: Pt maintain 0.8 Units/hour and bolus ratio of 1:10. Recommended pt may want to maintain her sugars with insulin pump bc she would be able to maintain better glucose control while . Metformin is not contraindicated in is she wishes to continue it . Objective: BP 122/56 Pulse 56 Temp(Src) 36.5 ??C (97.7 ??F) (Temporal) Resp 16 Ht 170 cm (66.93) Wt116 kg (255 lb 11.7 oz) BMI 40.14 kg/m2 SpO2 97% : Yes Gen: NAD CV: RRR Lungs: CTAB Abd: soft, NT, ND, +BS, FF 1cm below umbilicus Ext: WWP, NT, Neg MARCIN, +DP/PT Labs: Intake/Output Summary (Last 24 hours) at 04/16/11 0602 Last data filed at 04/15/11 1630 Gross per 24 hour Intake 1888.75 ml Output 3800 ml Net -1911.25 ml UOP: 800cc/2 h; last recorded 04/16 [id number] 04/15/2011 11:31 04/15/2011 16:39 04/15/2011 22:29 04/15/2011 23:01 04/16/2011 00:11 Glucose, Fingerstick 77 199 (H) 40 (LL) 89 166 (H) Assessment/Plan: Kymberly Stewart is a 36 y.o. POD: 2 s/p CS 39w2d, recovering well. Care --Continue routine postpartem care --Pain management: Pain is well controlled on oral medication -- depression: s/s discussed; Given information sheet -- support: consult as needed; given info sheet on pumping --Contraception: s/p b/l tubal ligation DM, Type C --Cont. FS before meals and qh; 0.5 units/h 1:15 insulin/carb ratio. Will monitor sugars --Carb. Consistent diet Hypothyroidism --Cont. On home regimen Synthyroid 25 mcg daily Hx of Gastric Bypass --Cont on B12, B vit, calcium, iron supplementation Hx of Chronic HTN --Will monitor BPs and currently WNL. Consider treating with anti-hypertensives if BP >140/>100 Depression --Cont. Pt's home dose of citalopram Dispo POD 3/4. TEMI Lang, RAUL AI 04/16/2011 * Angelica Lucas MD - 04/16/2011 0555 EDT R2 PN POD2 s/p repeat section with BTL S: Pt in the NICU seeing baby. O: BP 140/65 Pulse 68 Temp(Src) 36.8 ??C (98.2 ??F) (Temporal) Resp 18 Ht 170 cm (66.93) Wt 116 kg (255 lb 11.7 oz) BMI 40.14 kg/m2 SpO2 100% ? Unknown Intake/Output Summary (Last 24 hours) at 04/16/11 0555 Last data filed at 04/15/11 1630 Gross per 24 hour Intake 1888.75 ml Output 3800 ml Net -1911.25 ml Exam deferred as pt in the NICU. Will try again later. Lab Results Component Value Date WBC 13.58* 04/15/2011 WBC 7.67 11/08/2009 HGB 11.9 04/15/2011 HGB 12.7 11/08/2009 HCT 35.0 04/15/2011 HCT 38.0 11/08/2009 MCV 82 04/15/2011 MCV 77* 11/08/2009 PLT 190 04/15/2011 PLT 222 11/08/2009 A/P: 36yo POD2 s/p repeat LTCS and BTL, doing well, AVSS. *Routine PP care. Encourage ambulation. Support BF. *Class C DM: after hypoglycemic episode yesterday, pt adjusted her insulin pump to basal rate of 0.5u/hr, carb ratio 1:15, per verbal discussion with Dr. Sepulveda. BS fairly well controlled, fasting 78 yesterday, pre-prandial BS 40-199, hs 166. Housestaff was not called about value of 40, pt correctedherself, repeat 89. - appreciate endocrine - cont basal 0.5u/hr with 1:15 carb ratio - cont fasting, pre-prandial, and qhs fingersticks *Post-op hct 35.0 *PP Depression: s/sx discussed. *Contraception: BTL *DISPO: POD 3 or 4 Desi Nelson MD Attending: Attestation: I saw and evaluated the patient on 04/16/11. I agree with the findings and plan of care as documented in the resident's/fellow's note. POD#2 s/p repeat with BTL. Class C DM on insulin pump, stable sugars at present. Endocrine following. Incision intact with rodrigo. Meeting milestones. Continue post op/ post care. Baby in NICU for low sugars. Recovering. MD Angelica Borja MD 04/16/2011 17:54 * Yesenia Sepulveda MD - 04/15/2011 1219 EDT Endocrine/Diabetes Progress Note Admit Date: 04/14/2011 Hospital day LOS: 1 day Date of Service: 04/15/2011 Chief Complaint: 36 yo female with PMH significant for Type II Diabetes Mellitus, Hypertension (8 year history; off medications since July 2010), Hypothyroidism, HAMM, dyslipidemia, sleep apnea, depression and morbid obesity s/p Alfredo-en-Y (2008) presents to Labor and Delivery at 39 weeks and 2 days for planned repeat and bilateral tubal ligation. Subjective: In the middle of the afternoon yesterday (following ), the patient changed herbasal insulin rate from 1 Unit/hour to 0.8 Units/hour. Insulin has been running at 0.8 Units/hour since that time. The patient attempted to eat a small meal last night, but she vomited most of it and therefore she did not bolus any insulin. Blood sugars since the yesterday include a patient measured sugar of 104 at 1621, 109 at 1812, 182 at 2320, a patient measured 92 at 0300 (after which she ate a small snack), and 78 at 0716. She tolerated breakfast well this morning and used her normal 1/10 insulin/carb ratio to bolus her insulin. She feels very comfortable adjusting her pump settings on her own and she states that she normally adjusts her pump settings by 10-20% based on her blood glucose measurements throughout the day. Overnight the patient's new daughter was transferred to the NICU due to several episodes of hypoglycemia, but she is otherwise doing well. Patient complains of: Nothing Patient Denies: Hypoglycemia Chest Pain Dyspnea/SOB Cramps/pain in feet Nausea/vomitting Diarrhea Constipation Early Satiety Diabetes HX: diagnosed in 1999; maintained on oral medications for approximately 5 years before transitioning to insulin during her first in 2004; transitioned to insulin pump following that ; required very high doses of insulin such that she had to add Lantus injections to her regimen as well as the pump; following gastric bypass surgery in 2008 she lost 80-90 pounds and she was able to transition to Metformin only; for about 5 months prior to her most recent , she was actually off all diabetes medications and doing quite well; she restarted Metformin upon becoming and she restarted the insulin pump and discontinued Metformin about 10 weeks into her in order to achieve maximal glucose control. Home Diabetes Regimen: Insulin pump: Basal rates: 1.4 Units/hr from 1900 - 0800, 1.8 Units/hr from 0800 - 1330, and 2.4 Units/hour from 1330 - 1900; Carb to Insulin ratio: 10:1 Relevant medications include: Levothyroxine 25 mcg daily, citalopram 20 mg daily Steroid/other medications that may affect Glucose: None Review of Systems: Pertinent items are noted in the Subjective/HPI Objective/Physical Exam: VS: Patient Vital Signs in the past 8 hrs: BP Pulse Resp Temp SpO2 04/15/11 1135 127/60 mmHg 59 18 36.3 ??C (97.3 ??F) 100 % 04/15/11 0800 - - - 37.3 ??C (99.1 ??F) - 04/15/11 0755 137/62 mmHg 68 18 - 99 % 04/15/11 0700 - - 18 - - 04/15/11 0500 118/58 mmHg 56 16 - 97 % Pain: Patient Numeric Pain Scale in the past 8 hrs: Numeric Pain Level (Scale 1-10) 04/15/11 1159 0 04/15/11 1158 0 04/15/11 1135 0 04/15/11 0755 0 04/15/11 0500 0 Weight: Empty flowsheet group. Body mass index is 40.14 kg/(m^2). Food Intake: Diabetic Activity:ambulating alone I&O: Intake/Output Summary (Last 24 hours) at 04/15/11 1219 Last data filed at 04/15/11 1135 Gross per 24 hour Intake 4813.59 ml Output 4025 ml Net 788.59 ml Data Review: Labs: Recent Labs Basename 04/15/11 1131 04/15/11 0716 04/14/11 2320 04/14/11 1812 ??? GLUCOSEFINGE 77 78 182* 109* Lab Results Component Value Date HGBA1C 8.6 07/25/2009 HGBA1C 5.9 01/13/2005 Lab Results Component Value Date GLUCOSEFINGE 77 04/15/2011 GLUCOSEFINGE 163* 08/10/2009 NA 140 11/08/2009 NA 139 2004 K 4.4 11/08/2009 K 4.5 2004 CL 103 11/08/2009 CL 103 2004 CO2 27 11/08/2009 CO2 26 2004 BUN 10 11/08/2009 BUN 6* 02/26/2005 CREATININE 0.70 04/14/2011 CREATININE 0.68* 11/08/2009 CALCIUM 9.8 11/08/2009 CALCIUM 9.6 2004 Assessment: 36 yo female with PMH significant for Type II Diabetes Mellitus, Hypertension (8 year history; off medications since July 2010), Hypothyroidism, HAMM, dyslipidemia, sleep apnea, depression and morbid obesity s/p Alfredo-en-Y (2008) presents to Labor and Delivery at 39 weeks and 2 days for planned repeat and bilateral tubal ligation. Plan: 1. The patient can maintain her pump at a basal rate of 0.8 Units/hour and a bolus insulin:carbohydrate ratio of 1:10. She feels very comfortable managing the pump on her own. She will increaseor decrease basal rate based on blood sugar readings over the next few days. 2. The patient is planning to breast feed and although Metformin is not contraindicated in , she may want to continue to manage her blood sugars with the insulin pump while breastfeedingin order to have more control over her blood sugars during this period of blood sugar variability in many patients. She will be discharged on the insulin pump and she will follow up with her PCP in order to further discuss her diabetes management options while breast feeding and thereafter. 3. We have no further recommendations for this patient during her inpatient stay as she clearly hasa good understanding of her insulin pump and capacity to manage it on her own. We are, therefore, signing off on this patient today. Feel free to contact us with any new questions. The patient is always welcome to follow up with us as an outpatient in clinic if she has any further questions or concerns about diabetes management in the period. Dedra Palmer MD 04/15/2011 12:19 Attestation: I saw and examined the patient with the resident/fellow 04/15/2011. I agree with the findings and plan of care documented in the resident's/fellow's note. YESENIA SEPULVEDA MD 04/15/2011 19:49 * Vincent Parnell MD - 04/15/2011 1201 EDT Anesthesia Pain Service Subjective: This is a 36 y.o. year old female now POD # 1 s/p combined spinal/epidural for . Patient doing very well this am. Pain controlled, ambulating and primary team has requested epidural removal.Patient is not on anticoagulation therapy. Pain Level: well controlled on oral medications Objective: Vitals: Blood pressure 127/60, pulse 59, temperature 36.3 ??C (97.3 ??F), temperature source Temporal, resp. rate 18, height 170 cm (66.93), weight 116 kg (255 lb 11.7 oz), SpO2 100.00%, unknown if currently . Coagulation Status: not anticoagulated Scheduled Medications: Current facility-administered medications Medication Route Frequency ??? bupivacaine-fentanyl in NS 0.0625 %-4 mcg/mL 250 mL epidural Epidural CONTINUOUS ??? citalopram (CELEXA) tablet 20 mg Oral DAILY ??? cyanocobalamin tablet 1,000 mcg Oral DAILY ??? folic acid (FOLVITE) tablet 1 mg Oral DAILY ??? levothyroxine (SYNTHROID) tablet 25 mcg Oral DAILY ??? lactated ringers (LR) infusion Intravenous CONTINUOUS ??? dextrose 5 % and 0.45 % NaCl with KCl 20 mEq/L infusion Intravenous CONTINUOUS ??? acetaminophen (TYLENOL) tablet 325-650 mg Oral Q4H ??? ibuprofen (MOTRIN) tablet 400 mg Oral Q4H ??? docusate sodium (COLACE) capsule 100 mg Oral BID PRN ??? ondansetron (PF) (ZOFRAN) injection 2-4 mg Intravenous Q6H PRN ??? calcium carbonate (TUMS) 200 mg calcium (500 mg) per chewable tablet Chew 1- 2 Tab Oral Q2H PRN ??? multivitamin vit-iron fumarate-FA (STUARTNATAL) 27-1 mg tablet 1 Tab Oral DAILY ??? oxycodone (ROXICODONE) immediate release tablet 5-10 mg Oral Q4H PRN ??? oxycodone (ROXICODONE) immediate release tablet 5-10 mg Oral Q4H ??? nalbuphine (NUBAIN) injection 2.5 mg Intravenous Q4H PRN ??? zolpidem (AMBIEN) tablet 5 mg Oral AT BEDTIME PRN ??? acetaminophen (TYLENOL) tablet 325-650 mg Oral Q4H PRN ??? oxycodone (ROXICODONE) immediate release tablet 5-10 mg Oral Q4H PRN ??? ibuprofen (MOTRIN) tablet 400 mg Oral Q4H PRN ??? Calcium-Cholecalciferol (D3) (CALCARB) 600 mg(1,500mg) -200 unit per tablet 1 Tab Oral DAILY ??? ferrous sulfate EC tablet 324 mg Oral DAILY WITH BREAKFAST ??? B-Complex with Vitamin C tablet 1 Tab Oral DAILY ??? insulin aspart (NOVOLOG) injection Subcutaneous CONTINUOUS Allergies: No Known Allergies Labs: Lab Results Component Value Date WBC 11.29 04/14/2011 WBC 7.67 11/08/2009 HGB 13.1 04/14/2011 HGB 12.7 11/08/2009 HCT 38.6 04/14/2011 HCT 38.0 11/08/2009 MCV 82 04/14/2011 MCV 77* 11/08/2009 PLT 216 04/14/2011 PLT 222 11/08/2009 No results found for this basename: INR:3, PROTIME:3 Examination: General: alert, oriented, NAD Neuro: Motor Bilateral LE 5/5 Site: C/D/I Analysis and Plan: This is a 36 y.o. year old female now POD # 1 with epidural for immediate post op analgesia. Now transitioned to PO, ambulating and appropriate for epidural removal. Epidural catheter removed without any complication, tip entirely intact. Primary team to manage analgesic medications. Please call if any further assistance is desired. Vincent Parnell MD Acute Pain Service Biblical Languages Professor, CA-2 Pager [phone] * Desi Nelson MD - 04/15/2011 0605 EDT R2 PN POD1 s/p repeat section with BTL S: Doing well. Mod lochia. Tolerates diet. Not yet ambulating or voiding on her own. Denies N/V/CP/SOB/calf pain. O: BP 122/56 Pulse 56 Temp(Src) 36.5 ??C (97.7 ??F) (Temporal) Resp 16 Ht 170 cm (66.93) Wt 116 kg (255 lb 11.7 oz) BMI 40.14 kg/m2 SpO2 97% ? Unknown Intake/Output Summary (Last 24 hours) at 04/15/11 0605 Last data filed at 04/15/11 0500 Gross per 24 hour Intake 6124.84 ml Output 2625 ml Net 3499.84 ml 1400cc out in 6 hours GEN: NAD CV: RRR RESP: CTAB ABD: soft, NT, mildly distended, fundus firm at the umb Incision: C/D/I, rodrigo in place EXT: NT, 2+ edema bilaterally Lab Results Component Value Date WBC 11.29 04/14/2011 WBC 7.67 11/08/2009 HGB 13.1 04/14/2011 HGB 12.7 11/08/2009 HCT 38.6 04/14/2011 HCT 38.0 11/08/2009 MCV 82 04/14/2011 MCV 77* 11/08/2009 PLT 216 04/14/2011 PLT 222 11/08/2009 A/P: 36yo POD1 s/p repeat LTCS and BTL, doing well, AVSS. *Routine PP care. Encourage ambulation. Support BF. *Class C DM: pt on insulin pump at basal rate of 1u/hr. BS well controlled, fasting 72, pre-prandial BS 97-109, hs 182. - consult endocrine yesterday, no note left, will await recommendations - cont basal 1u/hr - cont fasting, pre-prandial, and qhs fingersticks *CBC pending this am *Remove PCEA today and d/c dobbins once ambulating. *PP Depression: s/sx discussed. *Contraception: BTL *DISPO: POD 3 or 4 Desi Nelson MD * Angely Mari - 04/15/2011 0535 EDT MSIV MFM AI PN CC: S/P repeat elective LTCS & tubal ligation Subjective: S: Yesterday tried to eat 1/2 sandwich but nauseous and vomited a small amount. She did not good herself an insulin bolus. Overnight took her sugar level on her own and it was 92. Tolerating small amounts of food. +ambulating. Dobbins in place. BF/pumping while baby is in NICU. Lochia mod. Neg BM/flatus Pain well controlled. Aware will remove epidural and transition to oral meds. This am denies fevers/chills, DESAI, CP, SOB, n/v, leg pain. Objective: BP 122/56 Pulse 56 Temp(Src) 36.5 ??C (97.7 ??F) (Temporal) Resp 16 Ht 170 cm (66.93) Wt116 kg (255 lb 11.7 oz) BMI 40.14 kg/m2 SpO2 97% : Yes Gen: NAD CV: RRR Lungs: CTAB Abd: soft, NT, ND, +BS, FF 1cm below umbilicus Ext: WWP, NT, Neg MARCIN, +DP/PT Labs: Ref. Range 04/14/2011 18:12 04/14/2011 23:20 Glucose, Fingerstick Latest Range: 70-100 mg/dl 109 (H) 182 (H) Intake/Output Summary (Last 24 hours) at 04/15/11 0536 Last data filed at 04/15/11 0500 Gross per 24 hour Intake 6124.84 ml Output 2625 ml Net 3499.84 ml UOP: 200cc/h Lab Results Component Value Date WBC 11.29 04/14/2011 HGB 13.1 04/14/2011 HCT 38.6 04/14/2011 MCV 82 04/14/2011 PLT 216 04/14/2011 F/U CBC this am: pending Assessment/Plan: Kymberly Stewart is a 36 y.o. POD: 1 s/p CS 39w2d, recovering well. One elevated sugar at night, but pt did not bolus her mealtime insulin bc she vomited a portion of the food. Care --Continue routine postpartem care --Pain management: Epidural in place with good pain control. Anesth will remove epidural and will transition to oral pain meds --Anticipate removing dobbins this am -- depression: s/s discussed; Given information sheet -- support: consult as needed; given info sheet on pumping --Contraception: s/p b/l tubal ligation --Awaiting 24 hr CBC DM, Type C --Cont. FS before meals and qhs. Goal is to maintain sugars in range of 80-100. Insulin pump at 0.8currently. Pt managing her insulin. --Carb. Consistent diet --F/U Endocrine consult Hypothyroidism --Cont. On home regimen Synthyroid 25 mcg daily Hx of Gastric Bypass --Cont on B12, B vit, calcium, iron supplementation Chronic HTN --Will monitor BPs and currently WNL. Consider treating with anti-hypertensives if BP >140/>100 Depression --Cont. Pt's home dose of citalopram Dispo POD 3/4. TEMI Lang, MFM AI 04/15/2011 * Kristina Harrison MD - 04/14/2011 5420 EDT OB R2 POST-OP CHECK S: Doing well. Pain well controlled. -flatus, -BM. Tolerating PO. Nausea with one episode of emesis. -ambulation. Dobbins in place. -SOB, CP, calf pain. Lochia moderate. going ok. O: BP 140/60 Pulse 64 Temp 36.5 ??C (97.7 ??F) Resp 18 Ht 170 cm (66.93) Wt 116 kg (255 lb 11.7 oz) BMI 40.14 kg/m2 attempting Intake/Output Summary (Last 24 hours) at 04/14/11 1750 Last data filed at 04/14/11 1700 Gross per 24 hour Intake 4227.7 ml Output 625 ml Net 3602.7 ml Gen: NAD Resp: CTAB CV: RRR Abd: +BS, soft. appropriately tender, Fundus firm @ 4 cm above umbilicus Ext: WWP, 2+DPs, 1+ PE bilat A: pt is a 36 y.o. s/p LTCS @ 39+2 GA for repeat C/S. Doing well. AVSS. AUOP. P: Continue current care. CV: hx of hypertension, not currently on medication, had one pressure at 140/60 RESP: no issues GI: reg diet, vitamins for gastric bipass surgery ENDO: synthroid for hypothyroidism, novolog for diabetes, monitor sugars PSYCH: citalopram D/C dobbins in AM when ambulating Check post-op CBC in AM Kristina Harrison * Angely Mari - 04/14/2011 1642 EDT Medical Student MSIV Post-Op Progress Note CC: S/P elective repeat LTCS & Tubal ligation Subjective Pain well controlled. Lochia moderate, + appetite but has not eaten yet. Tolerated fluids. +N/V. Neg for CP, SOB, leg pain. Neg ambulate. Neg for BM. + dobbins catheter. Baby transferred to NICU for hypoglycemia and is attempting to breastfeed. Objective BP 133/62 Pulse 59 Temp(Src) 37.3 ??C (99.1 ??F) (Temporal) Resp 18 Ht 170 cm (66.93) Wt116 kg (255 lb 11.7 oz) BMI 40.14 kg/m2 : Yes Temp Readings from Last 4 Encounters: 04/14/11 37.3 ??C (99.1 ??F) Temporal 08/10/09 37.2 ??C (99 ??F) Tympanic PE Gen appearance - tired but in NAD Lungs - CTAB Heart - RRR, no M/R/G Abd - +BS, firm fundus palpated at U, dressing site is C/D/I Extremities - WWP, DP intact, no pitting edema - deferred; Labs I/O Intake/Output Summary (Last 24 hours) at 04/14/11 1642 Last data filed at 04/14/11 1419 Gross per 24 hour Intake 4200 ml Output 500 ml Net 3700 ml UOP: 125 cc/2 h; last recorded [id number] CBC Lab Results Component Value Date WBC 11.29 04/14/2011 WBC 7.67 11/08/2009 HGB 13.1 04/14/2011 HGB 12.7 11/08/2009 HCT 38.6 04/14/2011 HCT 38.0 11/08/2009 MCV 82 04/14/2011 MCV 77* 11/08/2009 PLT 216 04/14/2011 PLT 222 11/08/2009 Assessment Kymberly Stewart is a 36 y.o. at 39w2d with medical hx of DM (Type C), hypothyroidism, andgastric bypass s/p elective repeat . Recovering well. Good UOP. AVSS Plan Care --Continue routine postpartem care --Pain management: Epidural in place with good pain control. Consider D/C epidural tomorrow and transition to oral pain meds --Anticipate removing dobbins 24 hr post-op --Awaiting 24 hr CBC --Dispo - anticipate d/c on POD 3/4 DM, Type C --Cont. FS before meals and qhs. Goal is to maintain sugars in range of 80-100 --Pt on home insulin pump and managing her sugars Hypothyroidism --Cont. On home regimen Synthyroid 25 mcg daily Hx of Gastric Bypass --Cont on B12, B vit, calcium, iron supplementation Chronic HTN --Will monitor. Consider treating with anti-hypertensives if BP >160/>110 Angely Mari, MSIV, MFM, AI 04/14/2011; 17:40 * Nadege Priest RN - 04/14/2011 1435 EDT Patient comf post op repeat c/s. with Mom , taking formula now. Patient Medicated with Tylenol 650 mg po and MOtrin 400 mg po. Also Given (1) 5 mg po Roxicodone @ 1430. Plans . Not breastfed yet. No skin to skin. Family visiting. ID/allergy/maternal bracelets on mom/dad/baby. 0/10 pain scale. Temp 35.5 x 2. PCEA pump functioning. IV mainline lR @ 75/cc hr. Oxytocin @ 50 ml/hr now. Dobbins draining marlon colored urine. Received 4 Liters total today of LR. Dsg dry and intact. IV # 18 gauge right hand. D/C iv left hand. Plan to transfer to maternity soon. Endocrine Docs in touch with patient and discussing insulin dosing via pump with patient. Cem MULLINS * Yessy Chavez RN - 04/14/2011 1218 EDT C/section delivery female 1211 being assessed by pedis team. Weight 9lbs 7 oz. Covered with vernix.Physical exam done by Dr. Justus Dietrich. Cem MULLINS * Yessy Chavez RN - 04/14/2011 1121 EDT In OR 1 for c/section. Sitting for spinal placement. Venodynes both legs. Placing foey after spinalplaced. Cem MULLINS * Nadege Priest RN - 04/14/2011 1106 EDT Fingerstick 1045 = 75.c itra ph given. To or. Cem RN * Nadege Priest RN - 04/14/2011 1041 EDT Patient sitting for CSE now. # 2 LR infusing. Consents signed. Cem MULLINS * Nadege Priest RN - 04/14/2011 1040 EDT Insulin pump set at 1 unit of Novalog per hr Until 1 pm then set for 1.3units per hr, returning at 7 pm to 1 unit per hr. Cem MULLINS * Nadege Priest RN - 04/14/2011 0829 EDT Patient here today for scheduled c/s and BTL. Has insulin pump in place left Upper arm. Recent glucose per patient = 72. . NST in progress. NPO. FH tracing reassuring. IV start and labs this am. Cem RN * [employer], Bianka - 04/14/2011 0000 EDT documented in this encounter H&P Notes * Vincent Lakhani MD - 04/14/2011 0818 EDT OB R1 Labor H&P Rh+/RubImm/VarProtected/GBSpos Maternal Name: Kymberly Stewart : 1975 36 y/o 2 para 1001 at 39+2/7 weeks gestation. Patel LONG: 04/19/2011 LONG Basis: Ultrasound only CC: Scheduled repeat section and bilateral tubal ligation. HPI: 36 y.o. woman at 39w2d presents for scheduled repeat section and bilateral tubal ligation. Patient reports mild, intermittent CTX. - LOF. -VB. +FM. She reduced her basal rate on her insulin pump from 1.4 units/hr to 1 unit/hr overnight as instructed, with the plan to leave the pump at these settings in the post- period. 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 1 of 2): Disorders diagnosed during current Medical Substance Abuse: None; Smoking: None; Sexually Transmitted Diseases: None Obstetrical Bleeding - First Trimester Comments: Subchorionic hemorrhage : Suspected Macrosomia; Polyhydramnios Medications during current : None TESTING Maternal Labs: O+; Antibody screen: Neg; Rubella titer: Immune; Syphilis Screening: Neg; Gonorrhea Screening: Neg; Chlamydia Screening: Neg; Hepatitis B screen: Neg; Hepatitis C screen: Not Done; HIV: Neg Serum Screening: Multiple Marker Screening Not Done; Cystic Fibrosis Carrier Screening: Not Done Surveillance: Ultrasound; NST; BPP PE: BP 144/74 Pulse 74 Resp 20 Ht 170 cm (66.93) Wt 116 kg (255 lb 11.7 oz) BMI 40.14 kg/m2 ? Unknown Patient BP in the past 6 hrs: BP 04/14/11 1042 144/74 mmHg 04/14/11 0826 142/64 mmHg GEN: A&Ox3, NAD CV: RRR PULM: CTAB throughout ABD: Gravid, no uterine tenderness, EFW 9#12oz by Ang's. Cephalic by Ang's. EXT: NT, WWP, 1+ edema, 2+ DPP SVE: deferred EFM: BL 140 bpm, mod les, +accels, no decels TOCO: Ctx q5 mins U/S: Ceph, back right A/P: 36 y.o. woman at 39w2d presents for scheduled repeat section and bilateral tubal ligation. The risks, benefits and alternatives to this procedure were discussed with the patient. Understanding the same she wishes to go forward with the procedure. The permanence and low but present risk of tubal failure was also discussed with the patient. Cat I FHT. -Repeat section with bilateral tubal ligation *Admit to L&D *FWB: Reassuring FHT. IEFM. *GBS pos *Rh + *Consent for C/S and BTL scanned into PRISM *S/P anesthesia consult, plan for CSE -Diabetes - Class C *Will continue pump at basal rate of 1 unit/hr -Hypothyroidism *Continue home dose of -S/P Alfredo-en-Y *Continue home vitamins Discussed with Brett Leyva MD 04/14/2011 11:00 Attestation Statement ???I, Vincent Lakhani M.D, M.S., hereby attest that the Delivery Summary entry for 04/14/11 accurately reflects signatures/notations made in my capacity as attending physician when I treated/diagnosed the above listed patient. I was present during any, and all procedures, and properly supervised the resident staff until the procedures were complete. I do hereby attest that this information is true, accurate and complete to the best of my knowledge. documented in this encounter Procedure Notes * Vincent Lakhani MD - 04/14/2011 1427 EDTProcedure(s): REPEAT SECTION; TUBAL LIGATION Department of NURSE LDR DELIVERY SUMMARY . . Maternal Name: Kymberly Stewart : 1975 36 y/o 2 para 1001 at 39+2/7 weeks gestation. Patel. LABOR INFORMATION Labor Onset: None - C/S without labor; Delivery Indication: Elective GBS Status: Positive: culture within 4 weeks; GBS Prophylaxis: None Labor & Delivery Medications: Antibiotics for section prophylaxis, Post Oxytocin, Other VTX; LOT Intermittent auscultation only; FHR Pattern: Normal Amniotic Fluid Color: Thin meconium; Duration Rupture of Membranes: <12 Comments: Patient controlled insulin pump at 1 unit Novalog per hour during the C/S. DELIVERY INFORMATION Section Delivery Type of Section: Lower Segment Transverse Major Indication: Elective Repeat Patient Choice; Other Contributing Factors: None Candidate: Yes; Prior C/S Scar: Intact Delivery / Repair Anesthesia: Combined spinal / epidural EBL: 500-1000 Placenta: Delivery Method: Spontaneous; Configuration: Normal Labor and Delivery Complications: Procedures: Tubal Ligation INFORMATION Weight: 4281 grams Sex: Female Delivery Date: 04/14/2011 Delivery Time: 1211 Apgars: 71, 95 Peds Present Admitting Nursery: Normal Placental Cord Insertion: Normal; Umbilical Cord Vessels: Three DELIVERY PERSONNEL Delivery Provider: Vincent Lakhani Primary Nurse: Nadege Priest Service / Group: [facility] Additional Provider 1: Lorelei Kitchne Resident 1: Brett Quintero Medical Student: TEMI Lang Resident 2: [facility] Act.Blanching Machine Operator Provider: Viet Vann [place] Staff/[facility] Signature: Brett Quintero 04/14/2011 @ 1426 Attestation Statement ???I Vincent Lakhani M.D, M.S., hereby attest that the Delivery Summary entry for 04/14/11 accurately reflects signatures/notations made in my capacity as attending physician when I treated/diagnosed the above listed patient. I was present during any, and all procedures, and properly supervised the resident staff until the procedures were complete. I do hereby attest that this information is true, accurate and complete to the best of my knowledge. * Vincent Lakhani MD - 04/14/2011 1401 EDT Brief Operatory Note Date: 04/14/2011 Attending: Vincent Lakhani MD Lumber Buyer: Brett Quintero MD, Lorelei Kitchen MD, Angely Kamaljit [facility] Pre-op diagnosis: with IUP at 39w2d, Class C DM-Type2, CHTN, hypothyroidism, and s/p Alfredo-en-Y, hx of prior section, desire for elective repeat section, desire for permanentsterility. Post-op diagnosis: Same, delivered Procedure: Elective repeat low transverse Section via Pfannenstiel with double layer uterine closure, bilateral tubal ligation Anesthesia: Combined spinal-epidural Findings: 1) Thin meconium on amniotomy. 2) Viable female infant in EVELYN position, delivered at 12:11, Apgars 7 @ 1 min and 9 @ 5 min, wt. 4281g, 3) Pediatrics present at delivery 4) Normal appearing uterus, tubes, and ovaries; tubes ligated 5) Normal appearing placenta, three vessel cord Blood loss: 800mL Fluids: 2200mL of LR Urine output: 200mL, clear yellow Specimens: bilateral sections of tubes Drains/Packs/Foreign object retained: dobbins Complications: none Condition: good Disposition: Birthing room then Maternity See dictated operative report for more details Brett Quintero MD, 04/14/2011, 14:01 Attestation Statement I, Vincent Lakhani M.D, M.S., hereby attest that the Delivery Summary entry for 04/14/11 accurately reflects signatures/notations made in my capacity as attending physician when I treated/diagnosedthe above listed patient. I was present during any, and all procedures, and properly supervised theresident staff until the procedures were complete in their entirety . I do hereby attest that this information is true, accurate and complete to the best of my knowledge. documented in this encounter Consult Notes * Paola Hearn RN - 04/18/2011 1507 EDT Follow Up Note Reason for Consult: Provider requested and Registered Nurse requested, baby now transferred to N p rx c IV/formula supplementation for hypoglycemia Subjective: Date of : 04/14/2011 Time of Delivery: 1211 Info: Baby female was the 4281 g (9 lb 7 oz) product of a 39 2/7 gestation born by section, & PP tubal ligation.. Apgars were 7/9. Living Children: 1 Complications: baby passed mec during extraction, macrosomia, polyhydramnios, subchorionic hemorrhage. Labor medications taken were: Antibiotics and Spinal GBS: Mother was positive. Objective: Past History: Bf her first son,now 6yo for 10 mths. Started formula supplementation immediately pp and continued thru 10 mths. Pumped throughout experience, most milk obtained was about 1 oz. Had gastric bypass after this BF experience. Pertinent Medical History:asthma, PCOS, DM, HTN, thyroid problems and Sleep apnea, Esophagitis, s/pgastric bypass surgery, & HAMM=liver disease. Mother's Current Medications: Synthroid, Insulin pump & PP meds, Celexa, Vit B 12 po rather than injection. May change from insulin to Metformin at some point. Anatomy: Mother Anatomy: unusual breast anatomy: conical shaped breasts. Breasts filling today, sl engorged.Nipples intact. Current Weight: Weight: 4020 g (8 lb 13.8 oz) Change from Weight: -6% Last 24 hr I+O: Unmeasurable Output: Patient Unmeasurable Output in the past 24 hrs: Urine Occurrence Urine Description Stool Occurrence Stool Description 04/18/11 1330 1 - 1 - 04/18/11 1100 1 - 1 - 04/18/11 0800 1 Large 1 Yellow/brown 04/18/11 0530 1 Small 1 Yellow/brown 04/17/11 2315 1 - 1 - 04/17/11 1814 1 Large 1 Yellow/brown;Loose;Small 04/17/11 1520 2 Large 1 Yellow/brown;Loose;Large Breast Feeding: Patient Breast Feeding Occurence in the past 24 hrs: Breast Feeding Occurence 04/18/11 1330 1 04/18/11 1200 1 04/18/11 1100 1 04/18/11 0800 1 04/18/11 0600 1 04/18/11 0306 1 04/17/11 2315 1 04/17/11 1930 1 04/17/11 1900 1 Current Breast Feeding: Baby Audrey has had 8 voids, 7 stools, and has BF 8x in 24 hours. Kymberlyis preparing for discharge, and is excited to go home. Kymberly feels baby does best with SNS at the breast with EBM. Baby just fed, so latch not assessed today, though staff registered nurse, and mom both state BF is much improved, and everyone is comfortable with the BF plan. Assessment: Potential for BF success. Maternal hx significant for PCOS and needing to supplement with first child, though she may. Plan: BF on demand 8-12 times/day Follow up with Phone call 04/19 Handouts given: Pumping Log, Milk Storage Guidelines, Establishing a Full Supply with a Breast Pumpand Pump kit, cleaning/steaming supplies & labels/syringes. Time spent: 10 mins face to face Paola Hearn RN 04/18/2011 14:58 * Mick Reyes RN - 04/17/2011 1228 EDT Follow Up Note Reason for Consult: Provider requested and Registered Nurse requested, baby now transferred to [facility] p rx c IV/formula supplementation for hypoglycemia Subjective: Kymberly excited that Audrey seems to be BF better than her first child and not really needing nipple shield since transfer to [facility] Date of : 04/14/2011 Time of Delivery: 1211 Info: Baby female was the 4281 g (9 lb 7 oz) product of a 39 2/7 gestation born by section, & PP tubal ligation.. Apgars were 7/9. Living Children: 1 Complications: baby passed mec during extraction, macrosomia, polyhydramnios, subchorionic hemorrhage. Labor medications taken were: Antibiotics and Spinal GBS: Mother was positive. Objective: Past History: Bf her first son,now 6yo for 10 mths. Started formula supplementation immediately pp and continued thru 10 mths. Pumped throughout experience, most milk obtained was about 1 oz. Had gastric bypass after this BF experience. Pertinent Medical History:asthma, PCOS, DM, HTN, thyroid problems and Sleep apnea, Esophagitis, s/pgastric bypass surgery, & HAMM=liver disease. Mother's Current Medications: Synthroid, Insulin pump & PP meds, Celexa, Vit B 12 po rather than injection. May change from insulin to Metformin at some point. Infant Anatomy: Mother Anatomy: unusual breast anatomy: conical shaped breasts. Breasts filling today, sl engorged.Nipples intact. Current Weight: Weight: 4004 g (8 lb 13.2 oz), down 0.8 oz since yesterday Change from Weight: -6% Last 24 hr I+O:BF x 4/24 hrs ( transferred to NBN yest jim). Supplemented c formula via bottle in NICU, c emesis, using SNS since transfer to NBN - taking 15-30 cc each feeding. Has had less emesis since transfer to NBN. Had 1 void + 3 stools charted/24 hrs but data may be incomplete with different documentation flowsheets between units. Unmeasurable Output: Patient [place] Unmeasurable Output in the past 24 hrs: Urine Occurrence Urine Description Stool Occurrence Stool Description 04/17/11 1100 2 Large 1 Transitional green 04/17/11 0830 1 Medium - - 04/17/11 0500 0 - 0 - 04/16/11 2130 1 Large 1 Transitional green;Loose;Small 04/16/11 1635 - - 1 - 04/16/11 1320 - - 1 - Breast Feeding: Patient Breast Feeding Occurence in the past 24 hrs: Breast Feeding Occurence 04/17/11 1113 1 04/17/11 0400 1 04/17/11 0042 1 04/16/11 2130 1 04/16/111999 1 Current Breast Feeding: . Mom had already given baby 4 cc EBM via SNS at breast prior to my arrival and was working on helping baby to latch again since she was fussing at left breast. Right side tends to be easier for Audrey per mom. Audrey was wide awake but often doesn't gape; when she does finally start to cue and open her mouth, it isn't as wide as needed for a really good latch but mom is able to use nipple fold techniqueto help her latch. Audrey often holds her tongue up and/or back behind gum line but is able to extend it - did not really notice a tongue tie. Her suck on finger is rhythmic, which is an improvementper mom. It takes quite a long time and repeated attempts to enable baby to latch. Once latched, she did notsustain sucking so inserted SNS which aided with this. Mom was able to do this independently last night when baby was more vigorous, gaping and sustaining suck more easily. Today's bout was much moretypical per mom and she states that baby has had low tone since . She states that baby did not latch better with use of nipple shield so we decided to work/practice with baby without it. Since baby had a very short time at breast and we are supplementing, enc mom to pump to empty afterthis feeding. Discussed feeding plan with her and Dr. Luz, who stated that she would like to have baby take at least 30 cc per feed until she is BF much better. Mom pumping 3-4 cc each time now,uses massage effectively to empty breasts. She is skilled at hand expression, positioning baby and maximizes latch attempts c baby; she is very patient with process. Has [employer] Pump N Style at home; plans to work c Keely Browning once home. Enc Kymberly to have routine checking of her thyroid and Vit B 12 levels for best milk supply and growth of . Assessment: At risk for low milk supply due to hx of PCOS, underdeveloped breast tissue but this may be lessened in that she did BF/pump for 10 mths c first child and this baby is actually BF better than first. Mom very motivated to BF as exclusively as possible but understands there may be need for some supplementation. Baby not gaping well or bringing tongue forward most of the time enough to easily latch - needs SNS/supplementation to sustain feeding at breast and get enough food. Plan: Enc periods of STS to maximize baby's innate feeding skills and mom's milk supply Can try to allow baby to move toward self attachment if she starts with this; it may aid in gettingher to gape and move tongue down and forward Cont to offer breast c cues, no longer than 3 hrs without feeding to avoid hypoglycemia Use SNS c EBM/formula, at least 30 cc per feed - if baby can sustain sucking at breast without tube, might wait to insert it until she is no longer swallowing but currently, it seems needed to start feed with SNS Nursing staff to help mom with each feed as possible; try to observe at least one BF per shift Mom to continue to pump after as many BF as she can Consider renting hospital grade pump if this baby continues to have this much difficulty with BF attime of discharge LC to follow while in hospital Handouts given: Pumping Log, Milk Storage Guidelines, Establishing a Full Supply with a Breast Pumpand Pump kit, cleaning/steaming supplies & labels/syringes. Time spent: 45 mins face to face Mick Reyes RN 04/17/2011 12:27 * Zunilda Sidhu RN - 04/15/2011 1413 EDT Initial Consult Reason for Consult: Registered Nurse requested, d/t baby trans to NICU & mom needs ed re pumping. Subjective: Date of : 04/14/2011 Time of Delivery: 1211 Info: Baby female was the 4281 g (9 lb 7 oz) product of a 39 2/7 gestation born by section, & PP tubal ligation.. Apgars were 7/9. Living Children: 1 Complications: baby passed mec during extraction, macrosomia, polyhydramnios, subchorionic hemorrhage. Labor medications taken were: Antibiotics and Spinal GBS: Mother was positive. Objective: I have been able to latch my baby to one side so far, but I usually get a call from the NICU right after he has been fed w a bottle-I am trying to make it up to NICU in time to try BFing before giving a bottle. Past History: Pertinent Medical History:asthma, PCOS, DM, HTN, thyroid problems and Sleep apnea, Esophagitis, s/pgastric bypass surgery, & HAMM=liver disease. Mother's Current Medications: Synthroid, Insulin pump & PP meds. Anatomy: Mother Anatomy: unusual breast anatomy: conical shaped breasts Current Weight: Weight: 4065 g (8 lb 15.4 oz) Change from Weight: -5% Last 24 hr I+O: Unmeasurable Output: Patient [place] Unmeasurable Output in the past 24 hrs: Stool Occurrence 04/15/11 1000 1 04/15/11 0511 1 Breast Feeding: Patient Breast Feeding Occurence in the past 24 hrs: Breast Feeding Occurence 04/15/11 0200 1 04/14/11 2200 1 Current Breast Feeding: Visited Kymberly to help get Br pumping started/established. I have not observed BFing yet himanshu Mcintyre states that she has been able to latch her baby on one side so far & plans to BF as much as possible while her baby is in the NICU. Assessment: Mom's anatomy-breasts are cone shaped & mildly wide spaced. Delay of lactogenesis possible because of Miguelina's medical Hx & sepration from her baby because of her NICU admit for hypoglycemia & delivery. Gave mom the basics of pumping, how often, how long & how to massage her breasts w her thumbs while pumping. Plan: Pump 8 X in 24 hrs. Q 2 to 3 hrs, & not more than 4 hrs between night time pumps. ( OK to pump during visits in NICU if mom likes & OK to pump in the middle of the night when mom awakens to go to the Bath room or for PRN meds.) Handouts given: Pumping Log, Milk Storage Guidelines, Establishing a Full Supply with a Breast Pumpand Pump kit, cleaning/steaming supplies & labels/syringes. Time spent: 30 mins w parents plus time to chart. Zunilda Sidhu RN 04/15/2011 14:11 * Yesenia Sepulveda MD - 04/14/2011 1443 EDT Endocrine/Diabetes Progress Note Admit Date: 04/14/2011 Hospital day LOS: 0 days Date of Service: 04/14/2011 Chief Complaint: 36 yo female with PMH significant for Type II Diabetes Mellitus, Hypertension (8 year history; off medications since July 2010), Hypothyroidism, HAMM, dyslipidemia, sleep apnea, depression and morbid obesity s/p Alfredo-en-Y (2008) presents to Labor and Delivery at 39 weeks and 2 days for planned repeat and bilateral tubal ligation. Subjective: The patient delivered a healthy 4281 gram baby girl via planned repeat with no complications at 1211 today. She is on an insulin pump. Her basal rates today are set at 1 Unit/hour from 0000 - 1330 and 1.3 Units/hour from 1330 - 0000. She changed the rates last night because ofher planned NPO status. Blood sugars prior to surgery this morning were 72 and 75 per patient report. Prior to last night, the patient's pump was set at 1.4 Units/hr from 1900 - 0800, 1.8 Units/hr from 0800 - 1330, and 2.4 Units/hour from 1330 - 1900 and her fasting blood sugars were in the 70s. She reports that blood sugars measured throughout the day were no higher than 130. She reports that she had a hemoglobin A1c of 7.2% 2-3 months ago, but this is not in our system. She follows with Phylicia Brown in [place] for diabetes management. Prior to the patient was managing herdiabetes with diet and exercise alone. She restarted Metformin when she got . Reported hemoglobin A1c of 6.9% on 10/13/10 at 13 weeks 1 day of . She switched to the insulin pump in late August (around her 10th week of ) and discontinued Metformin at that time. She hopes to resume Metformin and then, transition back to diet and exercise management of her disease after . She is planning to breast feed. Hypothyroidism: The patient was on Levothyroxine 25 mcg prior to . She has continued to take this medication throughout the . Patient complains of: No complaints; postsurgical pain is well controlled with epidural still in place Patient Denies: Fatigue Hypoglycemia Chest Pain Dyspnea/SOB Nausea/vomitting Diarrhea Constipation Diabetes HX: diagnosed in 1999; maintained on oral medications for approximately 5 years before transitioning to insulin during her first in 2004 and then transitioned to insulin pump following ; required very high doses of insulin such that she had to add lantus injections to her regimen as well as the pump; following gastric bypass surgery in 2008 and an 80-90 pound weight los s, she was able to transition to Metformin only; about 5 months before becoming , she transitioned off all oral medications and was able to manage her diabetes with diet and exercise only; she restarted Metformin upon becoming ; about 10 weeks into her she restarted the insulin pump and discontinued Metformin. Home Diabetes Regimen: Insulin pump: Basal rates: 1.4 Units/hr from 1900 - 0800, 1.8 Units/hr from 0800 - 1330, and 2.4 Units/hour from 1330 - 1900; Carb to Insulin ratio 10 to 1 Relevant medications include: Levothyroxine 25 mcg daily, citalopram 20 mg daily Steroid/other medications that may affect Glucose: None Review of Systems: Pertinent items are noted in the Subjective/HPI Objective/Physical Exam: VS: Patient Vital Signs in the past 8 hrs: BP Pulse Resp Temp O2 Device 04/14/11 1442 119/58 mmHg 48 - - Room air 04/14/11 1414 106/66 mmHg 49 - - Room air 04/14/11 1407 116/45 mmHg 57 20 35.5 ??C (95.9 ??F) Room air 04/14/11 1400 127/67 mmHg 56 - - - 04/14/11 1300 - - - - Room air 04/14/11 1053 - 71 - - - 04/14/11 1042 144/74 mmHg 74 - - - 04/14/11 0826 142/64 mmHg 61 20 - - Pain: Patient Numeric Pain Scale in the past 8 hrs: Numeric Pain Level (Scale 1-10) 04/14/11 1442 0 04/14/11 1422 0 Weight: Patient Weight in the past 24 hrs: Weight 04/14/11 1025 116 kg (255 lb 11.7 oz) Body mass index is 40.14 kg/(m^2). Food Intake: Diabetic Activity:up with assistance I&O: Intake/Output Summary (Last 24 hours) at 04/14/11 1444 Last data filed at 04/14/11 1419 Gross per 24 hour Intake 4200 ml Output 500 ml Net 3700 ml Exam: Respiratory: Clear to auscultation bilaterally Cardiovascular: Auscultation Heart: normal rate, regular rhythm, no murmurs, rubs or gallops Extremities: Pedal Pulses: Symmetric distal pulses Extremities Edema/Varicosities: mild nonpitting pedal edema The skin on the feet is intact bilaterally with normal gross bony anatomy and no evidence of onychomycosis; normal monofilament exam Skin: Inspection: skin normal to inspection and no evidence of acanthosis nigracans Data Review: Labs: No results found for this basename: GLUCOSEFINGE:12 in the last 72 hours Lab Results Component Value Date HGBA1C 8.6 07/25/2009 HGBA1C 5.9 01/13/2005 Lab Results Component Value Date GLUCOSEFINGE 163* 08/10/2009 NA 140 11/08/2009 NA 139 2004 K 4.4 11/08/2009 K 4.5 2004 CL 103 11/08/2009 CL 103 2004 CO2 27 11/08/2009 CO2 26 2004 BUN 10 11/08/2009 BUN 6* 02/26/2005 CREATININE 0.70 04/14/2011 CREATININE 0.68* 11/08/2009 CALCIUM 9.8 11/08/2009 CALCIUM 9.6 2004 Assessment: 36 yo female with PMH significant for Type II Diabetes Mellitus, Hypertension (8 year history; off medications since July 2010), Hypothyroidism, HAMM, dyslipidemia, sleep apnea, depression and morbid obesity s/p Alfredo-en-Y (2008) presents to Labor and Delivery at 39 weeks and 2 days for planned repeat and bilateral tubal ligation. Plan: 1. We have stopped the patient's insulin pump for now. We will resume the pump at a basal rate of 0.8 Units/hour once the patient's blood sugar is >150. 2. We will continue to monitor fasting, pre and post prandial blood sugars throughout the immediatepostpartum period in order to determine the patient's new insulin requirement. She will likely be discharged on an insulin pump and follow up with her PCP as an outpatient in order to transition backto Metformin when she is ready. Dedra Palmer MD 04/14/2011 14:44 Attending. Patient seen and discussed with Dr. Palmer. Jointly agreed with patient to continue pump at current0.8 u.hr basal rate. Meal coverage by 1 :10 car ratio. Will follow up with PCP after discharge. Mcc goal is to restart metformin and stop insulin. Will wait until final decision about whether tobreast feed - no contraindication with metformin, issue is more flexibility with pump to deal with fluctuations in BG control that often come with nursing. Carlos Alberto Sepulveda MD Attestation statement: I discussed the patient with the resident/fellow at the time of the visit. Iagree with the findings and the plan of care documented in the resident's/fellow's note. documented in this encounter Nursing Notes * [employer], Bianka - 04/14/2011 0000 EDT documented in this encounter OR Notes * OR Surgeon - Brett Quintero MD - 04/16/2011 0347 EDT OPERATIVE REPORT SERVICE DATE: 04/14/2011 SURGEON: Vincent Lakhani MD CERTIFIED SURGICAL FIRST ASSISTANT: Brett Quintero MD, Lorelei Kitchen MD, Claudia Mari CCIV PREOPERATIVE DIAGNOSIS: G2, P1-0-0-1 with intrauterine at 39+2 weeks gestational age, class D diabetes mellitus type 2, chronic hypertension, hypothyroidism, status post Alfredo-en-Y. History of prior section with desire for elective repeat section. Desire for permanent sterility. POSTOPERATIVE DIAGNOSIS: G2, P1-0-0-1 with intrauterine at 39+2 weeks gestational age, class D diabetes mellitus type 2, chronic hypertension, hypothyroidism, status post Alfredo-en-Y. Historyof prior section with desire for elective repeat section. Desire for permanent sterility. Delivered. PROCEDURE: Elective repeat low transverse section via Pfannenstiel with double-layer uterine closure, bilateral tubal ligation via [place] method. ANESTHESIA: Combined spinal epidural. INDICATIONS: This 36-year-old G2, P1-0-0-1 presented to labor and delivery with intrauterine at 39+2 weeks gestational age. The patient has a history of class D diabetes mellitus type 2, chronic hypertension, obesity and hypothyroidism. Her was also complicated by macrosomia and polyhydramnios. The patient was previously advised on vaginal after section versus repeat section. The risks, benefits and alternatives to both were discussed with the patient, and understanding the same she wished to go forward with surgery. She also had a desire for permanent sterility. The risks, benefits and alternatives to intraoperative bilateral tubal ligationwere discussed with the patient including the permanence of the procedure and low but present risk of failure. Understanding these risks, she wished to go forward with the procedure. Written consent was signed and placed on the paper chart prior to the procedure. FINDINGS: 1. Thin meconium on amniotomy. 2. Viable female in EVELYN position, delivered at 12:11, Apgars 7 at one minute and 9 at five minutes. Weight 4218 grams. 3. Pediatrics present at delivery. 4. Normal-appearing uterus, tubes and ovaries; tubes ligated. 5. Normal- appearing placenta, three-vessel cord, central insertion. NARRATIVE: With an IV in place, the patient was taken to the operating room where her previously placed epidural was found to be functioning. A spinal was administered in the operating room by anesthesia. After anesthesia was found to be adequate, she was prepped and draped in the usual sterile fashion. The adequacy of her analgesia was reconfirmed by an Allis test. Her skin was incised in a transverse fashion in the lower abdomen across her previous scar. This incision was carried down to the underlying layer of fascia sharply with the knife. The fascia was incised on either side ofmidline sharply with the knife. This incision was extended laterally with the Leach scissors. The superior aspect of this incision was then grasped with Yokasta clamps, elevated, and the underlying rectus muscles dissected off with both blunt dissection as well as sharp dissection with the scalpel. Attention was then turned to the inferior aspect of the fascial incision, which, in a similar fashion, was grasped with Yokasta clamps, elevated and the underlying rectus muscles dissected off both bluntly and sharply with the knife. Moderate amounts of adhesive disease from her prior sectionwere noted. The rectus muscles were adherent in the midline and required sharp dissection with the Metzenbaum scissors. The peritoneum was identified and entered, and with good visualization of the bl adder was entered sharply with the scissors. The peritoneal incision was extended superiorly and inferiorly using sharp dissection with the Metzenbaum scissors as well as the Bovie, with good visualization. Fibrous bands of scar were also noted at the level of the peritoneum and incised both with the Bovie and sharply with the Metzenbaum scissors. The bladder blade was placed. The vesicouterine peritoneum was identified and was noted to be low on the uterus, well out of the planned incisional site. The uterine peritoneum superior to this was grasped with smooth pickups and incised sharply with the Metzenbaum scissors. This incision was extended superolaterally with the Metzenbaum scissors. The inferior aspect of the peritoneal incision was then grasped with a Sallie clamp and the bladder flap created digitally. The bladder blade was replaced in this newly created bladder flap. Survey of the superior aspect of the uterus revealed no adhesions to the anterior abdominal wall. A hysterotomy was created sharply in a transverse fashion with the scalpel until membranes were visible. The uterine incision was extended superolaterally with the bandage scissors. Thin meconium was noted on amniotomy. The infant's head was delivered through the incision atraumatically. The remainder of the infant was then delivered without incident. The cord was doubly clamped and cut and the infant was handed off to the pediatricians. The placenta was then expressed from the uterus. The uterus was then delivered through the incision and wrapped in a moist lap sponge. The incision was inspected and corners marked with T clamps. The uterine incision was then closed with 0 Chromic in a running locked fashion. A second imbricating layer was then placed utilizing the same stitch, which provided excellent hemostasis except for three small points along the incision, which continued to ooze. Txqoaf-mn-inoat stitches with 0 Vicryl were then placed over these small bleeding areas. The central most area of bleeding, however, continued, requiring several more layers of xgudlp-hp-umvxr stitches. This site was still slightly oozy at this point, thus pressure was applied and we proceeded with the tubal ligation. The tubes were identified by their fimbriated ends. The tube was grabbed at approximately 1/3 of the distance from the uterus with a Sheila clamp. A window was created in the mesosalpinx withthe Bovie. The tubes were then doubly tied with 0 plain gut suture at the proximal and distal ends,leaving an intervening region of tube of approximately 1 cm. This section was then excised sharply using Metzenbaum scissors and sent to pathology for analysis. The same procedure was applied to the patient's right tube, which in a similar fashion was ligated, excised sharply with the Metzenbaum scissors and sent to pathology for analysis. The tubes were hemostatic at the end of this procedure. The hysterotomy was then reexamined and found to have the same central area of oozing. A couple more lphdmm-uj-eosph stitches of 0 Vicryl achieved excellent hemostasis. The uterus was then replaced into the abdomen with extra care not to disrupt the ligated tubes. The abdominal gutters were irrigatedwith warm normal saline and suctioned with the pool suction. The hysterotomy was again inspected for hemostasis, and was found to be excellent. The fascia was then inspected for bleeding and buttonhole defects, and finding that there were none, was closed with 0 PDS in a running fashion. The subcuta neous tissues were inspected for bleeding. Small bleeding vessels were cauterized with the Bovie. The subcutaneous tissues were then irrigated with warm normal saline and suctioned with the pool suction. No further bleeding was noted. So, the subcutaneous tissues were reapproximated with 3 interrupted stitches of 2-0 Vicryl. The skin was then closed with rodrigo. The patient tolerated the procedure well. Sponge, lap, needle and instrument counts were reported to be correct x3. The patient received 2 g of cefazolin prior to the procedure. The attending surgeon was present throughout the entire procedure. The patient was taken to her birthing room in stable and awake condition for later transfer to maternity. ESTIMATED BLOOD LOSS: 800 mL. FLUIDS: 2200 mL of lactated Ringer's. URINE OUTPUT: 200 mL clear yellow. SPECIMENS: Bilateral sections of tubes. DRAINS, PACKS AND FOREIGN OBJECTS RETAINED: Dobbins. COMPLICATIONS: None. CONDITION: Good. DISPOSITION: Birthing room, then maternity. Unless otherwise noted, there were no complications, no blood loss, no cultures obtained, no specimens removed, and no drains retained. Dictated by: Brett Quintero MD [facility] Fellow I was present for the entire procedure and agree with the above documentation. Lorelie Kitchen MD Vincent Lakhani MD 11 47 PM / cs Confirmation: [id number] Dictation ID: [id number] * Anesthesia Procedure Notes - [facility] [employer] - 04/14/2011 0000 EDT documented in this encounter Miscellaneous Notes * Plan of Care - Alicja Roldan V - 04/18/2011 1601 EDT Post- Shift Note Maternal: Admit Date: 04/14/2011 Hospital Day: LOS: 4 days Date of Delivery: Information for the patient's : Rosanna Stewart [[id number]] 04/14/2011 Time of Delivery: Information for the patient's : Rosanna Stewart [[id number]] 1211 Type of Delivery: repeat section with BTL Rhogam Administration: Not needed Gestation (weeks): Information for the patient's : Rosanna Stewart [[id number]] 39 10/27 Hepatitis B: Lab Results Component Value Date HEPBSAG negative 10/13/2010 Hepatitis C: No results found for this basename: HEPCAB Rubella: Protected Anesthesia/Duramorph: Spinal Episiotomy/Laceration:None Vital signs: Provider notified - ordered to recheck her BP. Her recheck was at 0135 and it was reported to Dr. Haynes Patient Vital Signs in the past 8 hrs: BP Pulse Resp Temp SpO2 04/18/11 0900 135/60 mmHg 69 18 36.9 ??C (98.4 ??F) 96 % Post- check: WNL IV / SL: None Dobbins/Void: pt voiding Pain Medications: Given this shift - see MAR Feeding: breast-Occasional support if mom rings, has been indep with SNS at breast vs BF then bottle feed after as she was doing at beginning of shift. Special Social Circumstances: Lives with and son and has lots of family in area who are also very helpful. Discharge Education:Education completed Certificate: Not completed Comments: Has been independent with breast feeding and SNS today. Alicja Roldan RN 04/18/2011 16:01 * Plan of Care - Fanny Her RN - 04/18/2011 0749 EDT Problem: GLYCEMIA IMBALANCE Goal: Clinical Indication Of Glycemia Balance Is Achieved Outcome: Ongoing 704) Patient checked her own blood glucose this AM prior to her breakfast. FS = 81 * Plan of Care - Fanny Her RN - 04/18/2011 0553 EDT Post- Shift Note Maternal: Admit Date: 04/14/2011 Hospital Day: LOS: 4 days Date of Delivery: Information for the patient's : Rosanna Stewart [[id number]] 04/14/2011 Time of Delivery: Information for the patient's : Rosanna Stewart [[id number]] 1211 Type of Delivery: repeat section with BTL Rhogam Administration: Not needed Gestation (weeks): Information for the patient's : Rosanna Stewart [[id number]] 39 10/27 Hepatitis B: Lab Results Component Value Date HEPBSAG negative 10/13/2010 Hepatitis C: No results found for this basename: HEPCAB Rubella: Protected Anesthesia/Duramorph: Spinal Episiotomy/Laceration:None Vital signs: Provider notified - ordered to recheck her BP. Her recheck was at 0135 and it was reported to Dr. Haynes Patient Vital Signs in the past 8 hrs: BP Pulse Resp Temp SpO2 04/18/11 0135 149/63 mmHg 65 - - - 04/18/11 0011 168/76 mmHg 51 16 36.5 ??C (97.7 ??F) 96 % Post- check: WNL IV / SL: None Dobbins/Void: pt voiding Pain Medications: Given this shift - see MAR Feeding: breast-Occasional support if mom rings, has been indep with SNS at breast vs BF then bottle feed after as she was doing at beginning of shift. Special Social Circumstances: Lives with and son and has lots of family in area who are also very helpful. Discharge Education:Education initiated Certificate: Not completed Comments: Has been independent with breast feeding and SNS tonight. Fanny Her RN 04/18/2011 5:53 * Plan of Care - Shira Dhaliwal - 04/17/20113 EDT Problem: GLYCEMIA IMBALANCE Goal: Clinical Indication Of Glycemia Balance Is Achieved Outcome: Met This Shift Pt did AC CBG at 1730=89 and 2 hr pp CBG =128. Pt did not require a bolus/sliding scale. Has only required basal rate. She states she does not do one before bed. * Plan of Care - Shira Dhaliwal - 04/17/2011 2148 EDT Post- Shift Note Maternal: Admit Date: 04/14/2011 Hospital Day: LOS: 3 days Date of Delivery: Information for the patient's : Rosanna Stewart [[id number]] 04/14/2011 Time of Delivery: Information for the patient's : Rosanna Stewart [[id number]] 1211 Type of Delivery: repeat section with BTL Rhogam Administration: Not needed Gestation (weeks): Information for the patient's : Rosanna Stewart [[id number]] 39 10/27 Hepatitis B: Lab Results Component Value Date HEPBSAG negative 10/13/2010 Hepatitis C: No results found for this basename: HEPCAB Rubella: Protected Anesthesia/Duramorph: Spinal Episiotomy/Laceration:None Vital signs: Provider notified of sl elevated BP's. states they will be drawing labs and are aware of her HTN Patient Vital Signs in the past 8 hrs: BP Pulse Resp Temp SpO2 04/17/11 1709 164/64 mmHg - - - - 04/17/11 1603 147/84 mmHg - - - - 04/17/11 1600 154/66 mmHg 52 16 36.5 ??C (97.7 ??F) 97 % Post- check: WNL IV / SL: None Dobbins/Void: pt voiding Pain Medications: Given this shift - see MAR Feeding: breast-Occasional support if mom rings, has been indep with SNS at breast vs BF then bottle feed after as she was doing at beginning of shift. Special Social Circumstances: Lives with and son and has lots of family in area who are also very helpful. Discharge Education:Education initiated Certificate: Not completed Comments: Stable ppIrina Nelson states pt can check blood sugars on her personal monitor as long as we document in a plan of care note r/t glucose control so they can view the trend. Mom is up ad mustapha, walking in trent, indep with feeds but RN has been there for verbal guidance. Will endorse care over to noc RN. Shira Dhaliwal RN 04/17/2011 21:48 * Plan of Care - Shira Dhaliwal - 04/17/2011 1655 EDT Problem: CARE Goal: Dressing Intact Until Removed With Any Drainage Marked Outcome: Not Met This Shift Inc assessment @ 1600- between 5th and 6th staple from R side inward, edges are not well approximated. Min amt of serous drg noted from this area. All other edges well approximated, pink in color around staple sites. New telfa applied, will cont to monitor inc and report abn findings as needed. * Plan of Care - Shira Dhaliwal - 04/17/2011 1652 EDT Problem: CARE Goal: Vital Signs Are Medically Acceptable Outcome: Not Met This Shift Pt B/P FTA=283/66 with large adult cuff BP machine, WRF=362/84 with reg adult cuff BP machine. Willtake manual BP with large adult cuff and document in flow sheet. labor employment associate notified @ 1650. Will cont to monitor and report abn parameters. * Plan of Care - Layla Chowdhury, RN - 04/17/2011 8724 EDT Post- Shift Note Maternal: Admit Date: 04/14/2011 Hospital Day: LOS: 3 days Date of Delivery: Information for the patient's : Rosanna Stewart [[id number]] 04/14/2011 Time of Delivery: Information for the patient's : TerryRosanna [[id number]] 1211 Type of Delivery: repeat section with BTL Rhogam Administration: Not needed Gestation (weeks): Information for the patient's : Rosanna Stewart [[id number]] 39 2 Hepatitis B: Lab Results Component Value Date HEPBSAG negative 10/13/2010 Hepatitis C: No results found for this basename: HEPCAB Rubella: Protected Anesthesia/Duramorph: Spinal Episiotomy/Laceration:None Vital signs: Stable Patient Vital Signs in the past 8 hrs: BP Pulse Resp Temp 04/17/11 0838 149/70 mmHg 60 15 36.7 ??C (98.1 ??F) Post- check: WNL IV / SL: None Dobbins/Void: pt voiding Pain Medications: Given this shift - see MAR Feeding: breast-Occasional support Special Social Circumstances: Lives with and son and has lots of family in area who are also very helpful. Discharge Education:Education initiated Certificate: Not completed Comments: Stable pp.Mom needs to be encouraged to ring when baby is getting latched to make sure that it is an effective latch. Mom has basically been feeding independently and not calling for help, even though it has been offered. States that baby is doing well. Has not had to use the shield this shift. AC FS pt did herself and did not inform RN until much later. AC lunch was 89. Layla Chowdhury RN 04/17/2011 14:54 * Plan of Care - Lucia Joseph RN - 04/17/2011 0341 EDT Problem: SAFETY Goal: Patient will remain free of physical injury Outcome: Met This Shift Pt ambulating well. Has remained free of falls while in the hospital. * Plan of Care - Lucia Joseph RN - 04/17/2011 0338 EDT Post- Shift Note Maternal: Admit Date: 04/14/2011 Hospital Day: LOS: 3 days Date of Delivery: Information for the patient's : Rosanna Stewart [[id number]] 04/14/2011 Time of Delivery: Information for the patient's : Rosanna Stewart [[id number]] 1211 Type of Delivery: repeat section with BTL Rhogam Administration: Not needed Gestation (weeks): Information for the patient's : Rosanna Stewart [[id number]] 39 2/ Hepatitis B: Lab Results Component Value Date HEPBSAG negative 10/13/2010 Hepatitis C: No results found for this basename: HEPCAB Rubella: Protected Anesthesia/Duramorph: Spinal Episiotomy/Laceration:None Vital signs: Stable Patient Vital Signs in the past 8 hrs: BP Pulse Resp Temp SpO2 04/17/11 0009 148/68 mmHg 64 18 36.4 ??C (97.5 ??F) 98 % Post- check: WNL IV / SL: None Dobbins/Void: pt voiding Pain Medications: Given this shift - see MAR Feeding: breast-Occasional support Special Social Circumstances: Lives with and son and has lots of family in area who are also very helpful. Discharge Education:Education initiated Certificate: Not completed Comments: Stable pp.Mom needs to be encouraged to ring when baby is getting latched to make sure that it is an effective latch. Mom has basically been feeding independently and not calling for help, even though it has been offered. States that baby is doing well. Has not had to use the shield this shift. LUCIA COKER RN 04/17/2011 3:38 * Plan of Care - Shira Dhaliwal - 04/16/20112205 EDT Problem: COGNITIVE/PERCEPTUAL Goal: Patient Is Able To Meet Needs Of Self & Fetus Outcome: Met This Shift Discussed BF basics with pt and assisted with SNS at breast, no shield. Handouts given this shift (Latch 1, 2, 3..., Off to the best start, and Basics) Pt shared with this RN thatwith her first child, now 6 yrs old, did not latch for 3 weeks. She had to pump and do SNS at the breast. She had delayed milk supply along with sparce supply to follow as state by pt. Pt does havesignificant medical hx incl Class C DM, PCOS, HTN, hypothyroid, and obesity. Enc pt to cont to pumpas much as comfort will allow (after q feed in which baby does not latch/feed successfully) but to at least pump 3 x per day (has been using shield on NICU but baby latched without on Shep 5 x1). Will refer to LC on Shep 5. Parents discussed possibility of D/C home tomorrow, this RN discussed potential risks of going home while feeding is not well est and to consider staying until Day 4 vs leaving early on Day 3. Enc parents to discuss this with [facility] and LC tomorrow. Pt states she has LC help x 6 visits for home after D/C. * Plan of Care - Shira Dhaliwal - 04/16/20116 EDT Post- Shift Note Maternal: Admit Date: 04/14/2011 Hospital Day: LOS: 2 days Date of Delivery: Information for the patient's : Rosanna Stewart [[id number]] 04/14/2011 Time of Delivery: Information for the patient's : Rosanna Stewart [[id number]] 1211 Type of Delivery: repeat section with BTL Rhogam Administration: Not needed Gestation (weeks): Information for the patient's : Rosanna Stewart [[id number]] 39 10/27 Hepatitis B: Lab Results Component Value Date HEPBSAG negative 10/13/2010 Hepatitis C: No results found for this basename: HEPCAB Rubella: Protected Anesthesia/Duramorph: Spinal Episiotomy/Laceration:None Vital signs: Stable Patient Vital Signs in the past 8 hrs: BP Pulse Resp Temp SpO2 04/16/11 1900 148/72 mmHg - - - - 04/16/11 1846 162/75 mmHg 60 18 36.9 ??C (98.4 ??F) 99 % Post- check: WNL IV / SL: None Dobbins/Void: pt voiding Pain Medications: Given this shift - see MAR Feeding: breast-FULL ASSIST Special Social Circumstances: Lives with and son and has lots of family in area who are also very helpful. Discharge Education:Education initiated Certificate: Not completed Comments: Stable pp. Ambulating to NICU earlier today. Baby has been transferred to [facility] this shift,needs full BF assist-baby did latch without shield with full RN assist (see flow sheet) and did 15cc Sim SNS at breast. Feeding went really well, mom was educated on BF basics, handouts given. Enc mom to pump while awake as often as possible ( after q feed) but at least 3-4 times a day. Will endorse care over to noc RN. Shira Dhaliwal RN 04/16/2011 21:46 * Plan of Care - Shira Dhaliwal - 04/16/2011 2146 EDT Problem: NUTRITION Patient unable to self-regulate blood glucose level Goal: Blood Glucose Control Maintain plasma glucose levels within expected range. Outcome: Met This Shift Pt has insulin pump that she maintains and regulates with her MD's. Pt using own blood sugar monitor in room at this time. Has been enc many times to call RN to share blood drop and get a reading on [facility] monitor. Pt did not call at 1845 when she did her CBG on her monitor (69 reported by pt). Enc pt to call with hs CBG. Will cont to monitor and enc pt to coordinate monitoring with our machine. * Plan of Care - Alicja Roldan V - 04/16/2011 1522 EDT Post- Shift Note Maternal: Admit Date: 04/14/2011 Hospital Day: LOS: 2 days Date of Delivery: Information for the patient's : Rosanna Stewart [[id number]] 04/14/2011 Time of Delivery: Information for the patient's : Rosanna Stewart [[id number]] 1211 Type of Delivery: repeat section with BTL Rhogam Administration: Not needed Gestation (weeks): Information for the patient's : Rosanna Stewart [[id number]] 39 10/27 Hepatitis B: Lab Results Component Value Date HEPBSAG negative 10/13/2010 Hepatitis C: No results found for this basename: HEPCAB Rubella: Protected Anesthesia/Duramorph: Spinal Episiotomy/Laceration:None Vital signs: Stable Patient Vital Signs in the past 8 hrs: BP Pulse Resp Temp SpO2 04/16/11 0758 144/64 mmHg 61 18 36.6 ??C (97.9 ??F) 97 % Post- check: WNL IV / SL: Saline lock removed - catheter intact Dobbins/Void: pt voiding Pain Medications: Given this shift - see MAR Feeding: breast- but baby in NICU .started pumping, baby has gone to breast in NICU but very briefly Special Social Circumstances: Lives with and son and has lots of family in area who are also very helpful. Discharge Education:Education initiated Certificate: Not completed Comments: stable pp. Ambulating to nicu . Note from caren: Her word processor operator left her instructions to decrease both the basal insulin and the meal or snack insulin if she has 2 low sugars in a row. She tests on her machine a/c, pc, h/s. Shehad a low of 59 before I saw her and took too much juice and crackers and went up to 199. Her machine reads chems 4-6 higher than ours. She then had another low of 40 at h/s she had 4 oz of juice andrepeat was 89. She planned to take her usual snack with reduced bolus per carb and also reduced thebasal. She wants nights to get her up for chem at 0100 before she goes to nicu. Nocs: stable BS increased from evenings. Pt to let us know when she tests so we can use our own machine also. Days pt did not ring when meals served so chems were done at time pt was just about done eating. Ptpumped times two and bf in nicu and has hopes that baby will come downto nbn this evening. Alicja Roldan RN 04/16/2011 15:22 * Plan of Care - Sara Kitchen RN - 04/16/2011 0409 EDT Post- Shift Note Maternal: Admit Date: 04/14/2011 Hospital Day: LOS: 2 days Date of Delivery: Information for the patient's : Rosanna Stewart [[id number]] 04/14/2011 Time of Delivery: Information for the patient's : Rosanna Stewart [[id number]] 1211 Type of Delivery: repeat section with BTL Rhogam Administration: Not needed Gestation (weeks): Information for the patient's : Rosanna Stewart [[id number]] 39 10/27 Hepatitis B: Lab Results Component Value Date HEPBSAG negative 10/13/2010 Hepatitis C: No results found for this basename: HEPCAB Rubella: Protected Anesthesia/Duramorph: Spinal Episiotomy/Laceration:None Vital signs: Stable Patient Vital Signs in the past 8 hrs: BP Pulse Resp Temp 04/16/11 0008 140/65 mmHg 68 18 36.8 ??C (98.2 ??F) Post- check: WNL IV / SL: Saline lock patent and flushed this shift Dobbins/Void: pt voiding Pain Medications: Given this shift - see MAR Feeding: breast- but baby in NICU .started pumping, baby has gone to breast in NICU but very briefly Special Social Circumstances: Lives with and son and has lots of family in area who are also very helpful. Discharge Education:Education initiated Certificate: Not completed Comments: stable pp. Ambulating to nicu . Note from caren: Her word processor operator left her instructions to decrease both the basal insulin and the meal or snack insulin if she has 2 low sugars in a row. She tests on her machine a/c, pc, h/s. Shehad a low of 59 before I saw her and took too much juice and crackers and went up to 199. Her machine reads chems 4-6 higher than ours. She then had another low of 40 at h/s she had 4 oz of juice andrepeat was 89. She planned to take her usual snack with reduced bolus per carb and also reduced thebasal. She wants nights to get her up for chem at 0100 before she goes to nicu. Nocs: stable BS increased from evenings. Pt to let us know when she tests so we can use our own machine also. Sara Kitchen RN 04/16/2011 4:09 * Plan of Care - Ashley Hernandez RN - 04/16/2011 0017 EDT Post- Shift Note Maternal: Admit Date: 04/14/2011 Hospital Day: LOS: 2 days Date of Delivery: Information for the patient's : Rosanna Stewart [[id number]] 04/14/2011 Time of Delivery: Information for the patient's : Rosanna Stewart [[id number]] 1211 Type of Delivery: repeat section with BTL Rhogam Administration: Not needed Gestation (weeks): Information for the patient's : Rosanna Stewart [[id number]] 39 10/27 Hepatitis B: Lab Results Component Value Date HEPBSAG negative 10/13/2010 Hepatitis C: No results found for this basename: HEPCAB Rubella: Protected Anesthesia/Duramorph: Spinal Episiotomy/Laceration:None Vital signs: Stable Patient Vital Signs in the past 8 hrs: BP Pulse Resp Temp 04/15/112004 132/62 mmHg 66 20 37.2 ??C (99 ??F) Post- check: WNL IV / SL: Saline lock patent and flushed this shift Dobbins/Void: pt voiding Pain Medications: Comment Pt had a pcea running till 1200 and had great pain relief was started on tylenol, motrin, and oxycodone 10 mg @ that time Feeding: breast- but baby in NICU .started pumping @ 13:15, baby has gone to breast in NICU but very briefly Special Social Circumstances: Lives with and son and has lots of family in area who are also very helpful. Discharge Education:Education initiated Certificate: Not completed Comments: stable pp. Ambulating to nicu . Her word processor operator left her instructions to decrease both the basal insulin and the meal or snack insulin if she has 2 low sugars in a row. She tests on hermachine a/c, pc, h/s. She had a low of 59 before I saw her and took too much juice and crackers andwent up to 199. Her machine reads chems 4-6 higher than ours. She then had another low of 40 at h/sshe had 4 oz of juice and repeat was 89. She planned to take her usual snack with reduced bolus percarb and also reduced the basal. She wants nights to get her up for chem at 0100 before she goes tonicu. Ashley Hernandez RN 04/16/2011 0:17 * Plan of Care - Alicja Roldan V - 04/15/2011 1452 EDT Post- Shift Note Maternal: Admit Date: 04/14/2011 Hospital Day: LOS: 1 day Date of Delivery: Information for the patient's : Rosanna Stewart [[id number]] 04/14/2011 Time of Delivery: Information for the patient's : Rosanna Stewart [[id number]] 1211 Type of Delivery: repeat section with BTL Rhogam Administration: Not needed Gestation (weeks): Information for the patient's : Rosanna Stewart [[id number]] 39 10/27 Hepatitis B: Lab Results Component Value Date HEPBSAG negative 10/13/2010 Hepatitis C: No results found for this basename: HEPCAB Rubella: Protected Anesthesia/Duramorph: Spinal Episiotomy/Laceration:None Vital signs: Stable Patient Vital Signs in the past 8 hrs: BP Pulse Resp Temp SpO2 04/15/11 1135 127/60 mmHg 59 18 36.3 ??C (97.3 ??F) 100 % 04/15/11 0800 - - - 37.3 ??C (99.1 ??F) - 04/15/11 0755 137/62 mmHg 68 18 - 99 % 04/15/11 0700 - - 18 - - Post- check: WNL IV / SL: Saline lock patent and flushed this shift Dobbins/Void: Dobbins d/c'd - patient due to void at 16:30 to 18:30 Pain Medications: Comment Pt had a pcea running till 1200 and had great pain relief was started on tylenol, motrin, and oxycodone 10 mg @ that time Feeding: breast- but baby in NICU .started pumping @ 13:15, baby has gone to breast in NICU Special Social Circumstances: Lives with and son and has lots of family in area who are also very helpful. Discharge Education:Education initiated Certificate: Not completed Comments: Pain level of 0/10. She is on AC and HS chems. For brkfst poct was 78 and for lunch poct was 77 pt had grape juice till her lunch came immenantly. She gives additional insulin at meals 1 unit per 15 carb. No c/o n/v today Pt getting out of bed independently. Lisa care was done in the bathroom and then pt ambulated to NICU and back to visit baby. Telfa dressing is clean and dry. Alicja Roldan RN 04/15/2011 14:52 * Anesthesia Post-Eval - Chiquita Bowman MD - 04/15/2011 1212 EDT Post Anesthesia Evaluation Date of Service: 04/15/2011 The patient has been evaluated and assessed. If present, post anesthetic events are documented below. The last set of recorded vital signs and pain rating were reviewed: Temp: 36.3 ??C (97.3 ??F) (04/15/11 113), BP: 127/60 mmHg (04/15/11 113), Resp: 18 (04/15/11 113), SpO2: 100 % (04/15/111134), Pulse: 59 (04/15/111134),Numeric Pain Level (Scale 1-10): 0 Procedure detail: Anesthesia Type: Spinal (combined spinal epidural) Level of Consciousness: Awake;Oriented Vital Signs: Stable Post Op Pain: Good analgesia with nerve block/existing epidural (pain well controlled planning on having epidural removed tod) Ambulatory Status: Out of bed in chair Additional follow up needed: No Pt doing well, denies DESAI or back pain. Epidural in situ, pt wishes to have removed APS called. CHIQUITA BOWMAN MD 04/15/2011 12:12 * Plan of Care - Lorelei Randhawa RN - 04/15/2011 0027 EDT Post- Shift Note Maternal: Admit Date: 04/14/2011 Hospital Day: LOS: 1 day Date of Delivery: Information for the patient's : Rosanna Stewart [[id number]] 04/14/2011 Time of Delivery: Information for the patient's : Rosanna Stewart [[id number]] 1211 Type of Delivery: repeat section with BTL Rhogam Administration: Not needed Gestation (weeks): Information for the patient's : Rosanna Stewart [[id number]] 39 10/27 Hepatitis B: Lab Results Component Value Date HEPBSAG negative 10/13/2010 Hepatitis C: No results found for this basename: HEPCAB Rubella: Protected Anesthesia/Duramorph: Spinal Episiotomy/Laceration:None Vital signs: Stable Patient Vital Signs in the past 8 hrs: BP Pulse Resp Temp SpO2 04/15/11 0500 - 56 16 - 97 % 04/15/11 0310 122/56 mmHg 65 18 - 98 % 04/15/11 0100 - 64 18 - 97 % 04/15/11 0000 119/62 mmHg 59 16 36.5 ??C (97.7 ??F) 95 % 04/14/11 2212 - - 18 - - Post- check: WNL IV / SL: IV up and infusing Dobbins/Void: Dobbins in - Patent Pain Medications: Comment Pt has a pcea running and has great pain relief with that Feeding: breast- but baby in NICU .has not pumped yet, baby has gone to breast in NICU Special Social Circumstances: Lives with and son and has lots of family in area who are also very helpful. Discharge Education:Education initiated Certificate: Not completed Comments: Pt has a PCEA pump running and is getting great pain relief with a pain level of 0/10. She has an insulin pump with a basal rate of 0.8. She is on AC and HS chems. HS chem tonight was 182 and pt checked it at 0310 on her own meter and it was 90. She gives additional insulin at meals 1 unit per 15 carb. Has vomited x 2 and did receive zofran IV after first time she vomited this evening (last vomited at 1900) . No further nausea or vomiting tonight. Tolerated small amount of her dinner after last emesis as well as a peach and some crackers and juice tonight. At 2044 pt got out of bed independently. Lisa care was done in the bathroom and then pt ambulated to NICU and back to visit baby. Kymberly has declined her scheduled tylenol and motrin this evening due to nausea earlier. Foleyis draining good amount this evening. Abdominal dressing is clean, dry and intact. Lorelei Randhawa RN 04/15/2011 5:17 * Plan of Care - Miranda Nicole RN - 04/14/20112127 EDT Post- Shift Note Maternal: Admit Date: 04/14/2011 Hospital Day: LOS: 0 days Date of Delivery: Information for the patient's : Rosanna Stewart [[id number]] 04/14/2011 Time of Delivery: Information for the patient's : Rosanna Stewart [[id number]] 1211 Type of Delivery: repeat section Rhogam Administration: Not needed Gestation (weeks): Information for the patient's : Rosanna Stewart [[id number]] 39 10/27 Hepatitis B: Lab Results Component Value Date HEPBSAG negative 10/13/2010 Hepatitis C: No results found for this basename: HEPCAB Rubella: Protected Anesthesia/Duramorph: Spinal Episiotomy/Laceration:None Vital signs: Stable Patient Vital Signs in the past 8 hrs: BP Pulse Resp Temp SpO2 O2 Device 04/14/111999 135/62 mmHg 60 18 36.1 ??C (97 ??F) 100 % - 04/14/11 1900 - 64 18 - 100 % - 04/14/11 1719 140/60 mmHg 64 18 36.5 ??C (97.7 ??F) 99 % - 04/14/11 1621 133/62 mmHg 59 18 - 100 % - 04/14/11 1548 132/70 mmHg 70 18 37.3 ??C (99.1 ??F) - - 04/14/11 1459 - - - 35.5 ??C (95.9 ??F) - - 04/14/11 1442 119/58 mmHg 48 - - - Room air 04/14/11 1414 106/66 mmHg 49 - - - Room air 04/14/11 1407 116/45 mmHg 57 20 35.5 ??C (95.9 ??F) - Room air 04/14/11 1400 127/67 mmHg 56 - - - - Post- check: WNL IV / SL: IV up and infusing Dobbins/Void: Dobbins in - Patent Pain Medications: Comment Pt has a pcea running and has great pain relief with that Feeding: breast- but baby in NICU .has not pumped yet Special Social Circumstances: Lives with and son and has lots of family in area who are also very helpful. Discharge Education:Education initiated Certificate: Not completed Comments: Pt has a PCEA pump running and is getting great pain relief with a pain level of 1/10. She has an insulin pump with a basal rate of 0.8. She is on AC and HS chems. She gives additional insulin at meals 1 unit per 15 carb. Has vomited x 2 and did receive zofran IV after first time she vomited this evening (last vomited at 1900) . Tolerated small amount of her dinner after last emesis. [id number] pt got out of bed independently. Lisa care was done in the bathroom and then pt ambulated to NICU to visit baby. Kymberly has declined her scheduled tylenol and motrin this evening due to nauseaearlier. Dobbins is draining good amount this evening. Abdominal dressing is clean, dry and intact. Miranda Nicole RN 04/14/2011 21:28 * Plan of Care - Miranda Nicole RN - 04/14/2011 4878 EDT Problem: CARE Goal: Urine Output Is 30 ml/hour Or More Urinary Catheter is draining yellow urine 30 ML/hour or more. Outcome: Met This Shift Dobbins catheter draining clear yellow urine. Urine output in 4 hours time was 600 cc. Dobbins continues to drain well. * Plan of Care - Yue Reeves - 04/14/2011 1847 EDT Post- Shift Note Maternal: Admit Date: 04/14/2011 Hospital Day: LOS: 0 days Date of Delivery: Information for the patient's : Rosanna Stewart [[id number]] 04/14/2011 Time of Delivery: Information for the patient's : Rosanna Stewart [[id number]] 1211 Type of Delivery: repeat section Rhogam Administration: Not needed Gestation (weeks): Information for the patient's : Rosanna Stewart [[id number]] 39 10/27 Hepatitis B: Lab Results Component Value Date HEPBSAG negative 10/13/2010 Hepatitis C: No results found for this basename: HEPCAB Rubella: Protected Anesthesia/Duramorph: Spinal Episiotomy/Laceration:None Vital signs: Stable Patient Vital Signs in the past 8 hrs: BP Pulse Resp Temp O2 Device 04/14/11 1719 140/60 mmHg 64 18 36.5 ??C (97.7 ??F) - 04/14/11 1621 133/62 mmHg 59 18 - - 04/14/11 1548 132/70 mmHg 70 18 37.3 ??C (99.1 ??F) - 04/14/11 1459 - - - 35.5 ??C (95.9 ??F) - 04/14/11 1442 119/58 mmHg 48 - - Room air 04/14/11 1414 106/66 mmHg 49 - - Room air 04/14/11 1407 116/45 mmHg 57 20 35.5 ??C (95.9 ??F) Room air 04/14/11 1400 127/67 mmHg 56 - - - 04/14/11 1300 - - - - Room air 04/14/11 1053 - 71 - - - Post- check: WNL IV / SL: IV up and infusing Dobbins/Void: Dobbins in - Patent Pain Medications: Comment Pt has a pcea running and has great pain relief with that Feeding: breast but baby in NICU .has not pumped yet Special Social Circumstances: Lives with and son and has lots of family in area who are also very helpful. Discharge Education:Education initiated Certificate: Not completed Comments: Pt has a PCEA pump running and is getting great pain relief with a pain level of 1/10. She has an insulin pump with a basal rate of 0.8. She is on ac and pc chems. She gives additional insulin at meals 1 unit per 15 carb. Has vomited x 2 and did receive zofran IV after first time she vomited. Tolerating her dinner so far and is waiting to give insulin to see if she tolerates her dinner. Yue Reeves RN 04/14/2011 18:47 * Plan of Care - Yue Reeves - 04/14/2011 1839 EDT Problem: CARE Goal: Vital Signs Are Medically Acceptable Intervention: Assess/monitor vital signs 2 - 96 hours TPR, BP Q 1 hour X1, Q 4 hours X 24 hours, then Q 8 hours. Data: Pt arrived on unit @ 1530 via bed.She was alert and talking and holding her baby. PCEA running. VSS though mom pulse 55-64. Temp 37.[address] Pt was Nauseous and vomited about 100cc. Gave Zofran iv and pt stated she felt better. She has an insulin pump and she adjusted her basal rate to 0.8 as was ordered . She vomited again @ 1800 100cc. Action: No further Zofran given at this time. Pt felt better after vomiting and was going to try toeat dinner.AC chem was 109. Pt is on a 1unit to 15 carb ratio and adjusts her pump herself. She wasgoing to wait to give her dinner insulin until after she finished eating to be sure she was able tovoid and had no vomiting. I also gave her nubain for itching and it did help per patient. Response: Pt stable. Will check with patient to see how much insulin was given via pump. justus Reeves RN 04/14/2011 18:29 * Plan of Care - Ricardo Eugene RN - 04/14/2011 8373 EDT D. Baby's weight is 9lb 7oz at 39w2d, The mother is diabetic with an insulin pump. Heel stick at 1 hour is 50 mg/dl. A. If the baby is symptomatic, Call NICU resident for immediate evaluation. If the baby is not symptomatic, feed the baby either by breast or bottle( at least 3-10 ml/kg), and repeat the glucose within 30 minutes of the feeding. If the glucose remains low notify the PCP and the NICU resident of thevalue and the nursing actions. Keep the parents aware of the reason for the nursing actions and thepotential for a transfer to NICU, if the can not keeps it's glucose with in the nl range. R. Glucose was 34 at 1.5 hrs of life and 10 mins after taking 20ml formula. Pediatric resident Dr Dietrich notified who asked for repeat chem in 30- 60 minutes following the last formula. * Anesthesia Pre-Eval - Tiara De Anda MD - 04/14/2011 1029 EDT Obstetric Anesthesia Consult Name: KYMBERLY STEWART : 1975 Date: 04/14/2011 Age: 36 y.o. GA: 39w2d Bulb Sorter: Susi Powell MD Obstetric History: Obstetric History Complications during : None Here for elective repeat No Known Allergies Anesthetic History: Anesthesia History Previous Patient or Family Problems with Anesthesia: None Airway Evaluation: Airway Evaluation Mallampati: 1 Mouth Opening: Normal Jaw Thrust: Normal Tempo-Mandibular Distance: Normal Neck Eval: ROM Normal Teeth: Normal (caps on upper incisors) Review of Systems: Smoker: Quit Quit Date: (2003) History of Respiratory Infections: No Asthma: Yes (mild) Hospitalized for Asthma: No Asthma Medications: No Heart Murmur: No High Blood Pressure: Yes (history of, now no longer needs medication) Angina/Palpitations: No Blood Vessel Disease: No Neurological Disease: No Muscular Degeneration: No Backpain/Neckpain: No Reflux/Heartburn/Hiatial Hernia: No Liver Disease: Yes Type of Liver Disease: (HAMM) Thyroid Disease: Yes Type of Thyroid Disease: Hypothyroid;Med Controlled Kidney Disease: No Diabetes: Yes Onset of Diabetes: Type I (well controlled with insulin pump) Anemia: No Bleeding Disorders: No Previous Anesthesia for Childbirth: Yes Previous Types of Anesthesia: Epidural;Didn't Work Well (dosed for , pt reports significant pain.) OB Plan: Past Surgical History Procedure Date ??? Gastric bypass surgery 08/07/2009 Lap ??? Dilation and curettage of uterus Current facility-administered medications Medication Route Frequency ??? misoprostol (CYTOTEC) tablet 200 mcg Buccal PRN ??? misoprostol (CYTOTEC) tablet 800 mcg Rectal PRN ??? carboprost (HEMABATE) intramuscular injection 250 mcg Intramuscular PRN ??? methylergonovine (METHERGINE) injection 200 mcg Intramuscular PRN ??? ibuprofen (MOTRIN) tablet 400 mg Oral PRN ??? acetaminophen (TYLENOL) tablet 650 mg Oral PRN ??? oxytocin in lactated ringers 30 units/500 ml Intravenous CONTINUOUS ??? Sodium Citrate (CITRA PH) solution 30 mL Oral Now ??? ceFAZolin (ANCEF) 2 g in sodium chloride 0.9% 50 mL IVPB Intravenous Now ??? phytonadione (VITAMIN K) 1 mg/0.5 mL injection ??? erythromycin (ROMYCIN) 5 mg/gram (0.5 %) ophthalmic ointment No outpatient prescriptions have been marked as taking for the 04/14/11 encounter (Hospital Encounter) with SUSI POWELL Vital Signs: BP 142/64 Pulse 61 Resp 20 Ht 170 cm (66.93) Wt 116 kg (255 lb 11.7 oz) BMI 40.14 kg/m2 ? Unknown Labs: Lab Results Component Value Date WBC 11.29 04/14/2011 WBC 7.67 11/08/2009 HGB 13.1 04/14/2011 HGB 12.7 11/08/2009 HCT 38.6 04/14/2011 HCT 38.0 11/08/2009 MCV 82 04/14/2011 MCV 77* 11/08/2009 PLT 216 04/14/2011 PLT 222 11/08/2009 NA 140 11/08/2009 NA 139 2004 K 4.4 11/08/2009 K 4.5 2004 CL 103 11/08/2009 CL 103 2004 CO2 27 11/08/2009 CO2 26 2004 BUN 10 11/08/2009 BUN 6* 02/26/2005 CREATININE 0.68* 11/08/2009 CREATININE 0.6* 02/26/2005 Blood/Cultures: Recent Results (from the past 1008 hour(s)) TYPE AND SCREEN Collection Time 04/14/11 0855 Component Value Range Status Comment ??? ABO O Final ??? Rh Factor Positive Final ??? Antibody Screen Negative Final SPECIMEN EXPIRES 04-17-2011 AT 23:59 GROUP B STREPTOCOCCUS MOLECULAR DETECTION Collection Time 03/20/11 1534 Component Value Range Status Comment ??? Group B Streptococcus Molecular Detection GROUP B BETA STREPTOCOCCAL DNA detected by PCR. Final ASA Classification: Grade II Plan: epidural, general, spinal mode(s) of anesthesia were discussed. Given her history of multipleabdominal surgeries and bad experience with her prior , we discussed a combined spinal epidural. Patient agrees to this plan. Discussed with Dr. John, will plan on leaving epidural in place for post- operative analgesia. Risks discussed included: Bleeding, Infection, Nerve Injury, Spinal headaches, low blood pressures with underperfusion, high spinals, hematomas, failure and replacement. All of Kymberly tSewart's questions were answered to her satisfaction. Tiara De Anda MD 04/14/2011 * Plan of Care - Nadege Priest RN - 04/14/2011 0901 EDT Problem: PAIN Goal: Patient's pain/discomfort is manageable/tolerable Intervention: Assess pain level Assess on admission, prior to pain medication, within 2 hrs of administering pain medication, prn and at discharge. 0/10 pain level. Scheduled c/s. Planning spinal; anesthesia. NPO. Anesthesia will see this am. Discussed pain meds post -op. Cem MULLINS * Scanned Note-Null - [employer], Scan - 04/14/2011 0000 EDT * Scanned Note-Null - [employer], Scan - 04/14/2011 0000 EDT * Scanned Note-Null - [employer], Scan - 04/14/2011 0000 EDT * Scanned Note-Null - [employer], Scan - 04/14/2011 0000 EDT documented in this encounter Plan of Treatment Upcoming Encounters Date Type Department Care Team (Late st Contact Info) Description 05/17/2024 13:00 EDT Office Visit [facility] Endocrinology - [address] [address] Twyla Mcclellan NP [address] [place] [address] [place] [phone] 08/30/2024 14:00 EST Office Visit [address] [address] Twyla Mcclellan NP [address] [place] [phone] documented as of this encounter Procedures Procedure Name Priority Date/Time Associated Diagnosis Comments GLUCOSE, GLUCOMETER Routine 04/18/2011 1 3:07 EDT GLUCOSE, GLUCOMETER Routine 04/17/2011 7 :52 EDT GLUCOSE, GLUCOMETER Routine 04/16/2011 1 2:25 EDT GLUCOSE, GLUCOMETER Routine 04/16/2011 8 :20 EDT GLUCOSE, GLUCOMETER Routine 04/16/2011 0 :11 EDT GLUCOSE, GLUCOMETER Routine 04/15/2011 2 3:01 EDT GLUCOSE, GLUCOMETER Routine 04/15/2011 2 2:29 EDT GLUCOSE, GLUCOMETER Routine 04/15/2011 1 6:39 EDT COMPLETE BLOOD COUNT Routine 04/15/2011 11:52 EDT GLUCOSE, GLUCOMETER Routine 04/15/2011 1 1:31 EDT GLUCOSE, GLUCOMETER Routine 04/15/2011 7 :16 EDT GLUCOSE, GLUCOMETER Routine 04/14/2011 2 3:20 EDT GLUCOSE, GLUCOMETER Routine 04/14/2011 1 8:12 EDT HOLD BLUE TOP Routine 04/14/2011 9:34 EDT COMPLETE BLOOD COUNT STAT 04/14/2011 9:34 EDT URIC ACID STAT 04/14/2011 9:34 EDT ALT STAT 04/14/2011 9:34 EDT AST STAT 04/14/2011 9:34 EDT LDH STAT 04/14/2011 9:34 EDT CREATININE STAT 04/14/2011 9:34 EDT URINALYSIS WITH MICROSCOPIC IF POSITIVE STAT 04/14/2011 9:06 EDT UA REFLEX Routine 04/14/2011 9:06 EDT FIBRINOGEN STAT 04/14/2011 8:55 EDT COMPLETE BLOOD COUNT STAT 04/14/2011 8:55 EDT TYPE AND SCREEN STAT 04/14/2011 8:55 EDT documented in this encounter Results * GLUCOSE, GLUCOMETER (04/18/2011 13:07 EDT) [facility] Glucose, Fingerstick 85 70 - 100 mg/dl [facility] [employer] ID [id number] Test Performed by Nursing Services [facility] 04/18/2011 13:0 7 EDT 04/18/2011 13:09 EDT Susi Powell MD CHEMISTRY & BLOOD GA S ORDERABLES Performing Organization Address [facility] Co de Phone Number [facility] [address] [place] [address] * GLUCOSE, GLUCOMETER (04/17/2011 7:52 EDT) Glucose, Fingerstick 76 70 - 100 mg/dl [facility] [employer] ID [id number] Test Performed by Nursing Services [facility] 04/17/2011 7:52 EDT 04/17/2011 7:57 EDT Susi Powell MD CHEMISTRY & BLOOD GA S ORDERABLES Performing Organization Address [facility] de Phone Number [facility] [address] [place] [address] * GLUCOSE, GLUCOMETER (04/16/2011 12:25 EDT) Glucose, Fingerstick 88 70 - 100 mg/dl [facility] [employer] ID [id number] Test Performed by Nursing Services [facility] 04/16/2011 12:2 5 EDT 04/16/2011 12:27 EDT Susi Powell MD CHEMISTRY & BLOOD GA S ORDERABLES Performing Organization Address [facility] de Phone Number [facility] [address] [place] [address] * (ABNORMAL) GLUCOSE, GLUCOMETER (04/16/2011 8:20 EDT) Glucose, Fingerstick 153(H) 70 - 100 mg/dl [facility] [employer] ID [id number] Test Performed by Nursing Services [facility] 04/16/2011 8:20 EDT 04/16/2011 8:22 EDT Susi Powell MD CHEMISTRY & BLOOD GA S ORDERABLES Performing Organization Address [facility] Co de Phone Number [facility] [address] [place] [address] * (ABNORMAL) GLUCOSE, GLUCOMETER (04/16/2011 0:11 EDT) Glucose, Fingerstick 166(H) 70 - 100 mg/dl [facility] [employer] ID [id number] Test Performed by Nursing Services [facility] 04/16/2011 0:11 EDT 04/16/2011 0:17 EDT Susi Powell MD CHEMISTRY & BLOOD GA S ORDERABLES Performing Organization Address [facility] Co de Phone Number [facility] [address] [place] [address] * GLUCOSE, GLUCOMETER (04/15/2011 23:01 EDT) Glucose, Fingerstick 89 70 - 100 mg/dl [facility] [employer] ID [id number] Test Performed by Nursing Services [facility] 04/15/2011 23:0 1 EDT 04/15/2011 23:06 EDT Susi Powell MD CHEMISTRY & BLOOD GA S ORDERABLES Performing Organization Address [facility] Co de Phone Number [facility] [address] [place] [address] * (ABNORMAL) GLUCOSE, GLUCOMETER (04/15/2011 22:29 EDT) Glucose, Fingerstick 40(LL) 70 - 100 mg/dl [facility] [employer] ID [id number] Test Performed by Nursing Services [facility] 04/15/2011 22:2 9 EDT 04/15/2011 23:06 EDT Susi Powell MD CHEMISTRY & BLOOD GA S ORDERABLES Performing Organization Address [facility] Co de Phone Number [facility] [address] [place] [address] * (ABNORMAL) GLUCOSE, GLUCOMETER (04/15/2011 16:39 EDT) Glucose, Fingerstick 199(H) 70 - 100 mg/dl [facility] [employer] ID [id number] Test Performed by Nursing Services [facility] 04/15/2011 16:3 9 EDT 04/15/2011 18:05 EDT Susi Powell MD CHEMISTRY & BLOOD GA S ORDERABLES Performing Organization Address [facility] de Phone Number [facility] [address] [place] [address] * (ABNORMAL) HEMAGRAM (04/15/2011 11:52 EDT) WBC 13.58(H) 4.0 - 12.4 K/cmm [facility] RBC 4.26 3.86 - 5.04 M/cmm [facility] Hemoglobin 11.9 11.6 - 15.2 gm/dl [facility] HCT 35.0 34.9 - 44.4 % [facility] MCV 82 81 - 98 fl [facility] MCH 28.1 26.7 - 33.3 pg [facility] MCHC 34.1 32.1 - 35.9 gm/dl [facility] PLT 190 141 - 320 K/cmm [facility] RDW-CV 14.9(H) 11.7 - 14.6 % [facility] Blood specimen (specimen) 04/15/2011 11:52 EDT 04/15/2011 12:52 EDT Brett Quintero MD HEMATOLOGY & PF4 ORD ERABLES Performing Organization Address [facility] Co de Phone Number [facility] [address] [place] [address] * GLUCOSE, GLUCOMETER (04/15/2011 11:31 EDT) Glucose, Fingerstick 77 70 - 100 mg/dl [facility] [employer] ID [id number] Test Performed by Nursing Services [facility] 04/15/2011 11:3 1 EDT 04/15/2011 11:35 EDT Susi Powell MD CHEMISTRY & BLOOD GA S ORDERABLES Performing Organization Address [facility]/ZIP Co de Phone Number [facility] [address] [place] [address] * GLUCOSE, GLUCOMETER (04/15/2011 7:16 EDT) Glucose, Fingerstick 78 70 - 100 mg/dl [facility] [employer] ID [id number] Test Performed by Nursing Services [facility] 04/15/2011 7:16 EDT 04/15/2011 7:17 EDT Susi Powell MD CHEMISTRY & BLOOD GA S ORDERABLES Performing Organization Address [facility] Co de Phone Number [facility] [address] [place] [address] * (ABNORMAL) GLUCOSE, GLUCOMETER (04/14/2011 23:20 EDT) Glucose, Fingerstick 182(H) 70 - 100 mg/dl [facility] [employer] ID [id number] Test Performed by Nursing Services [facility] 04/14/2011 23:2 0 EDT 04/14/2011 23:23 EDT Susi Powell MD CHEMISTRY & BLOOD GA S ORDERABLES Performing Organization Address [facility] Co de Phone Number [facility] [address] [place] [address] * (ABNORMAL) GLUCOSE, GLUCOMETER (04/14/2011 18:12 EDT) Glucose, Fingerstick 109(H) 70 - 100 mg/dl [facility] [employer] ID [id number] Test Performed by Nursing Services [facility] 04/14/2011 18:1 2 EDT 04/14/2011 18:14 EDT Susi Powell MD CHEMISTRY & BLOOD GA S ORDERABLES Performing Organization Address City/[facility]/ZIP Co de Phone Number [facility] [address] [place] [address] * HOLD BLUE TOP (04/14/2011 9:34 EDT) Hold Blue Top Sample for coagulation will be discarded after 4 hours [facility] 04/14/2011 9:34 EDT 04/14/2011 9:42 EDT Isaura Xiao MD LAB INFO SERVICE AND SUPPORT & PHONE RESULT Performing Organization Address [facility] Co de Phone Number [facility] [address] [place] [address] * CREATININE (04/14/2011 9:34 EDT) Creatinine 0.70 0.7 - 1.5 mg/dl [facility] GFR, Calculated >60 ml/min/1.7 3m2 [facility] Blood specimen (specimen) 04/14/2011 9:34 EDT 04/14/2011 9:42 EDT Isaura Xiao MD CHEMISTRY & BLOOD GA S ORDERABLES Performing Organization Address [facility] Co de Phone Number [facility] [address] [place] [address] * URIC ACID (04/14/2011 9:34 EDT) Pathologist [facility] [place] Uric Acid 4.0 2.2 - 7.7 mg/dl [facility] Blood specimen (specimen) 04/14/2011 9:34 EDT 04/14/2011 9:42 EDT Isaura Xiao MD CHEMISTRY & BLOOD GA S ORDERABLES Performing Organization Address [facility] Co de Phone Number [facility] [address] [place] [address] * LDH (04/14/2011 9:34 EDT) LDH [id number] - 618 U/L [facility] Blood specimen (specimen) 04/14/2011 9:34 EDT 04/14/2011 9:42 EDT Isaura Xiao MD CHEMISTRY & BLOOD GA S ORDERABLES Performing Organization Address City/[facility]/ZIP Co de Phone Number [facility] [address] [place] [address] * AST (04/14/2011 9:34 EDT) AST 21 15 - 46 U/L [facility] Blood specimen (specimen) 04/14/2011 9:34 EDT 04/14/2011 9:42 EDT Isaura Xiao MD CHEMISTRY & BLOOD GA S ORDERABLES Performing Organization Address [facility] Co de Phone Number [facility] [address] [place] [address] * ALT (04/14/2011 9:34 EDT) ALT 16 9 - 52 U/L [facility] Blood specimen (specimen) 04/14/2011 9:34 EDT 04/14/2011 9:42 EDT Isaura Xiao MD CHEMISTRY & BLOOD GA S ORDERABLES Performing Organization Address [facility] Co de Phone Number [facility] [address] [place] [address] * HEMAGRAM (04/14/2011 9:34 EDT) WBC 11.29 4.0 - 12.4 K/cmm [facility] RBC 4.71 3.86 - 5.04 M/cmm [facility] Hemoglobin 13.1 11.6 - 15.2 gm/dl [facility] HCT 38.6 34.9 - 44.4 % [facility] MCV 82 81 - 98 fl [facility] MCH 27.8 26.7 - 33.3 pg [facility] MCHC 33.9 32.1 - 35.9 gm/dl [facility] PLT 216 141 - 320 K/cmm [facility] RDW-CV 14.5 11.7 - 14.6 % [facility] Blood specimen (specimen) 04/14/2011 9:34 EDT 04/14/2011 9:42 EDT Isaura Xiao MD HEMATOLOGY & PF4 ORD ERABLES Performing Organization Address [facility]/ZIP Co de Phone Number [facility] [address] [place] [address] * UA REFLEX (04/14/2011 9:06 EDT) UA Billing Microscopic not indicated. [facility] 04/14/2011 9:06 EDT 04/14/2011 9:28 EDT Isaura Xiao MD URINALYSIS ORDERABLE S Performing Organization Address [facility] Co de Phone Number [facility] [address] [place] [address] * (ABNORMAL) URINALYSIS (04/14/2011 9:06 EDT) Color, UA Yellow [facility] Clarity, UA Clear [facility] Glucose, UA Neg NEG [facility] Bilirubin, UA Neg NEG [facility] Ketones, UA Trace(A) NEG [facility] Specific [place], Urine >1.030 1.001 - 1.035 [facility] Blood, UA Neg NEG [facility] pH, UA 5.5 4.6 - 8.0 [facility] Protein, UA Trace(A) NEG [facility] Urobilinogen, UA 0.2 0.2 - 1.0 E.U./dl [facility] Nitrite, UA Neg NEG [facility] Leuk Esterase Neg NEG [facility] Refractometer SG,Urine 1.024 1.001 - 1.035 [facility] Urine specimen (specimen) 04/14/2011 9:06 EDT 04/14/2011 9:28 EDT Isaura Xiao MD URINALYSIS ORDERABLE S Performing Organization Address [facility] Co de Phone Number [facility] [address] [place] [address] * TYPE AND SCREEN (04/14/2011 8:55 EDT) Pathologist [facility] [place] ABO O [facility] Rh Factor Positive [facility] Antibody Screen Negative [facility] Comment:SPECIMEN EXPIRES AT 23:59 Blood specimen (specimen) 04/14/2011 8:55 EDT 04/14/2011 8:55 EDT Isaura Xiao MD BLOOD BANK TESTS Performing Organization Address City/[facility]/ZIP Co de Phone Number [facility] [address] [place] [address] * FIBRINOGEN (04/14/2011 8:55 EDT) Pathologist [facility] [place] Fibrinogen Unable to test specimen: Underfilled tube submitted. ??Resubmit properly filled tube. Moderate hemolysis 171 - 384 mg/dl [facility] Blood specimen (specimen) 04/14/2011 8:55 EDT 04/14/2011 9:13 EDT Isaura Xiao MD HEMATOLOGY & PF4 ORD ERABLES Performing Organization Address [facility] Co de Phone Number [facility] [address] [place] [address] * (ABNORMAL) HEMAGRAM (04/14/2011 8:55 EDT) Pathologist [facility] [place] WBC 10.59 4.0 - 12.4 K/cmm [facility] RBC 5.14(H) 3.86 - 5.04 M/cmm [facility] Hemoglobin 14.0 11.6 - 15.2 gm/dl [facility] HCT 41.9 34.9 - 44.4 % [facility] MCV 81 81 - 98 fl [facility] MCH 27.3 26.7 - 33.3 pg [facility] MCHC 33.5 32.1 - 35.9 gm/dl [facility] PLT 253 141 - 320 K/cmm [facility] RDW-CV 15.0(H) 11.7 - 14.6 % [facility] Blood specimen (specimen) 04/14/2011 8:55 EDT 04/14/2011 9:13 EDT Isaura Xiao MD HEMATOLOGY & PF4 ORD ERABLES [facility] [address] [place] [address] documented in this encounter Visit Diagnoses Diagnosis Diabetes ([facility]) Type II or unspecified type diabetes mellitus without mention of complication, not stated as uncontrolled documented in this encounter Administered Medications Inactive Administered Medications - up to 3 most recent administrations Medication Order MAR Action Action Date Dose Rate Site acetaminophen (TYLENOL) tablet 325-650 mg 325-650 mg, oral, EVERY 4 HOURS, 12 doses, First dose on Wed04/14/11 at 1600, Last dose on Wed04/16/11 at 1200, Routine, On Unit Given 04/16/2011 12:33 EDT 650 mg Given 04/16/2011 9:02 EDT 650 mg Given 04/16/2011 4:29 EDT 650 mg acetaminophen (TYLENOL) tablet 325-650 mg 325-650 mg, oral, EVERY 4 HOURS PRN, Starting on Wed04/16/11 at 1600, Until 04/18/11 at 1903, Pain, Routine, On Unit Given 04/18/2011 14:49 EDT 650 mg Given 04/18/2011 7:08 EDT 650 mg Given 04/18/2011 3:05 EDT 650 mg acetaminophen (TYLENOL) tablet 650 mg 650 mg, oral, PRN, Starting on Wed04/14/11 at 0903, Until Wed04/14/11 at 1531, Pain, , Routine Given 04/14/2011 13:52 EDT 650 mg B-Complex with Vitamin C tablet 1 Tab 1 Tablet, oral, DAILY, First dose on Wed04/14/11 at 1600, Until Discontinued, Routine Given 04/18/2011 8:59 EDT 1 Tablet Given 04/17/2011 11:10 EDT 1 Tablet Given 04/16/2011 9:04 EDT 1 Tablet bupivacaine-fentanyl in NS 0.0625 %-4 mcg/mL 250 mL epidural epidural, CONTINUOUS, Starting on Wed04/14/11 at 1245, Until 04/18/11 at 1903, PCEA Dose: 1 mL LOCKOUT Interval: 10 minutes ONE HOUR Dose Limit: 14 mL BASAL Rate: 8 mL/hr, Routine Rate Documented 04/15/2011 0:00 EDT mL mL/hr Rate Documented 04/14/2011 20:00 EDT mL mL/hr Rate Documented 04/14/2011 16:05 EDT mL mL/hr Calcium-Cholecalciferol (D3) (CALCARB) 600 mg(1,500mg) -200 unit per tablet 1 Tab 1 Tablet, oral, DAILY, First dose on Wed04/14/11 at 1600, Until Discontinued, Routine Given 04/18/2011 8:59 EDT 1 Tablet Given 04/17/2011 11:10 EDT 1 Tablet Given 04/16/2011 9:05 EDT 1 Tablet ceFAZolin (ANCEF) 2 g in sodium chloride 0.9% 50 mL IVPB 2 g, intravenous, Administer over 30 Minutes, NOW X1, 1 dose, On Wed04/14/11 at 0930, Routine Given by Other 04/14/2011 11:58 EDT 2 g citalopram (CELEXA) tablet 20 mg 20 mg, oral, DAILY, First dose on Wed04/15/11 at 0900, Until Discontinued, Routine, On Unit Given 04/18/2011 8:59 EDT 20 mg Given 04/17/2011 11:10 EDT 20 mg Given 04/16/2011 9:05 EDT 20 mg cyanocobalamin tablet 1,000 mcg 1,000 mcg, oral, DAILY, First dose on Wed04/14/11 at 1600, Until Discontinued, Routine, On Unit Given 04/18/2011 8:58 EDT 1,000 mcg Given 04/17/2011 11:11 EDT 1,000 mcg Given 04/16/2011 9:06 EDT 1,000 mcg docusate sodium (COLACE) capsule 100 mg 100 mg, oral, 2 TIMES DAILY PRN, Starting on Wed04/14/11 at 1531, Until Wed04/18/11 at 1903, Constipation, Routine, On Unit Given 04/18/2011 14:49 EDT 100 mg Given 04/17/2011 18:54 EDT 100 mg Given 04/16/2011 18:47 EDT 100 mg ferrous sulfate EC tablet 324 mg 324 mg, oral, DAILY WITH BREAKFAST, First dose on Wed04/15/11 at 0800, Until Discontinued, Routine Given 04/18/2011 8:58 EDT 324 mg Given 04/17/2011 11:11 EDT 324 mg Given 04/16/2011 9:07 EDT 324 mg folic acid (FOLVITE) tablet 1 mg 1 mg, oral, DAILY, First dose on Wed04/14/11 at 1600, Until Discontinued, Routine, On Unit Given 04/18/2011 8:58 EDT 1 mg Given 04/17/2011 11:11 EDT 1 mg Given 04/16/2011 9:08 EDT 1 mg ibuprofen (MOTRIN) tablet 400 mg 400 mg, oral, PRN, 2 doses, Starting on Wed04/14/11 at 1230, Until Wed04/14/11 at 1519, Pain, Routine, Recovery (only) Given 04/14/2011 13:53 EDT 400 mg ibuprofen (MOTRIN) tablet 400 mg 400 mg, oral, EVERY 4 HOURS, 12 doses, First dose on Wed04/14/11 at 1600, Last dose on Wed04/16/11 at 1200, Routine, On Unit Given 04/16/2011 12:33 EDT 400 mg Given 04/16/2011 9:02 EDT 400 mg Given 04/16/2011 4:29 EDT 400 mg ibuprofen (MOTRIN) tablet 400 mg 400 mg, oral, EVERY 4 HOURS PRN, Starting on Wed04/16/11 at 0000, Until 04/18/11 at 1903, Pain, Routine, On Unit Given 04/18/2011 14:48 EDT 400 mg Given 04/18/2011 7:08 EDT 400 mg Given 04/18/2011 3:04 EDT 400 mg insulin aspart (NOVOLOG) injection subcutaneous, CONTINUOUS, Starting on Wed04/14/11 at 1600, Until 04/18/11 at 1903, On Unit Rate Documented 04/15/2011 0:00 EDT mL/hr Rate Documented 04/14/2011 20:00 EDT mL/hr Rate Documented 04/14/2011 16:59 EDT Units lactated ringers (LR) 1,000 mL BOLUS 1,000 mL, intravenous, NOW X1, 1 dose, On Wed04/14/11 at 0930, Routine Given 04/14/2011 9:18 EDT 1,000 mL lactated ringers (LR) infusion 75 mL/hr, intravenous, CONTINUOUS, Starting on Wed04/14/11 at 1430, Until Wed04/18/11 at 1903, Routine, On Unit Rate Documented 04/15/2011 0:00 EDT 75 mL/hr 75 mL/hr New Bag 04/14/2011 22:10 EDT 75 mL/hr 75 mL/hr Rate Documented 04/14/2011 20:00 EDT 75 mL/hr 75 mL/hr lansinoh HPA lanolin topical (top), PRN, Starting on Wed04/17/11 at 0028, Until Wed04/18/11 at 1903, Other, Breast Care Given 04/17/2011 5:11 EDT levothyroxine (SYNTHROID) tablet 25 mcg 25 mcg, oral, DAILY, First dose on Wed04/15/11 at 0900, Until Discontinued, Routine Given 04/18/2011 8:59 EDT 25 mcg Given 04/17/2011 11:12 EDT 25 mcg Given 04/16/2011 9:08 EDT 25 mcg multivitamin vit-iron fumarate-FA (STUARTNATAL) 27-1 mg tablet 1 Tab 1 Tablet, oral, DAILY, First dose on Wed04/14/11 at 1600, Until Discontinued, Routine, On Unit Given 04/18/2011 8:58 EDT 1 Tablet Given 04/17/2011 11:12 EDT 1 Tablet Given 04/16/2011 9:08 EDT 1 Tablet nalbuphine (NUBAIN) injection 2.5 mg 2.5 mg, intravenous, EVERY 4 HOURS PRN, Starting on Wed04/14/11 at 1531, Until Wed04/18/11 at 1903, severe itching, Routine, On Unit Given 04/14/2011 17:29 EDT 10 mg ondansetron (PF) (ZOFRAN) injection 2-4 mg 2-4 mg, intravenous, EVERY 6 HOURS PRN, Starting on Wed04/14/11 at 1531, Until Wed04/18/11 at 1903, Nausea, Routine, On Unit Given 04/14/2011 16:30 EDT 4 mg oxycodone (ROXICODONE) immediate release tablet 5-10 mg 5-10 mg, oral, EVERY 4 HOURS PRN, Starting on Wed04/14/11 at 1412, Until Wed04/15/11 at 1411, Pain, Routine, On Unit Given 04/15/2011 11:59 EDT 10 mg Given 04/14/2011 14:22 EDT 5 mg oxycodone (ROXICODONE) immediate release tablet 5-10 mg 5-10 mg, oral, EVERY 4 HOURS, 6 doses, First dose on Wed04/15/11 at 1815, Last dose on Wed04/16/11 at 1600, Routine, On Unit Given 04/16/2011 12:34 EDT 10 mg Given 04/16/2011 9:03 EDT 10 mg Given 04/16/2011 4:29 EDT 10 mg oxycodone (ROXICODONE) immediate release tablet 5-10 mg 5-10 mg, oral, EVERY 4 HOURS PRN, Starting on Wed04/16/11 at 2200, Until 04/18/11 at 1903, Pain, Routine, On Unit Given 04/18/2011 14:49 EDT 10 mg Given 04/18/2011 7:09 EDT 10 mg Given 04/18/2011 3:04 EDT 10 mg oxytocin in lactated ringers 30 units/500 ml 135 mL/hr, intravenous, CONTINUOUS, Starting on Wed04/14/11 at 1515, Until Wed04/14/11 at 1614, Routine, On Unit Given by Other 04/14/2011 14:22 EDT 135 mL/hr 135 mL/hr oxytocin in lactated ringers 30 units/500 ml 50 mL/hr, intravenous, CONTINUOUS, Starting on Wed04/14/11 at 1615, Until Wed04/14/11 at 2014, Routine, On Unit Rate Change 04/14/2011 14:10 EDT 50 mL/hr 50 mL/hr Sodium Citrate (CITRA PH) solution 30 mL 30 mL, oral, NOW X1, 1 dose, On Wed04/14/11 at 0930, STAT Given 04/14/2011 11:00 EDT 30 mL documented in this encounter Discontinued Medications Medication Sig Discontinue Reason Start Date End Da te folic acid (FOLVITE) 1 mg tabletIndications:prev ent neural tube defect Take 1 mg by mouth daily. Indications: PREVENTION OF NEURAL TUBE DEFECTS 04/18/2011 documented as of this encounter Historical Medications * This list may reflect changes made after this encounter. Medication Sig Dispensed Refills Start Date End Date acetaminophen (TYLENOL) 325 mg tablet Take 1-2 Tabs by mouth every 4 hours as needed for Pain. 04/18/2011 ibuprofen (MOTRIN) 400 mg tablet Take 1 Tab by mouth every 4 hours as needed for Pain. 04/18/2011 06/01/2011 added in this encounter Active and Recently Administered Medications Times are shown in EDT. Scheduled Medication Order 04/16/2011 04/17/2011 04/18/2011 acetaminophen (TYLENOL) tablet 325-650 mg () 325-650 mg, oral, EVERY 4 HOURS, 12 doses, First dose on Wed04/14/11 at 1600, Last dose on Wed04/16/11 at 1200, Routine, On Unit 0012 (Given - Provider: Sara Kitchen RN)0429 (Given - Provider: Sara Kitchen RN)0902 (Given - Provider: Alicja Roldan)1233 (Given - Provider: Lissa Mcclure RN) B-Complex with Vitamin C tablet 1 Tab (CANCELED) 1 Tablet, oral, DAILY, First dose on Wed04/14/11 at 1600, Until Discontinued, Routine 0904 (Given - Provider: Alicja Roldan) 1110 (Given - Provider: Sayda Gray RN) 0859 (Given - Provider: Alicja Roldan) Calcium-Cholecalcifero l (D3) (CALCARB) 600 mg(1,500mg) -200 unit per tablet 1 Tab (CANCELED) 1 Tablet, oral, DAILY, First dose on Wed04/14/11 at 1600, Until Discontinued, Routine 09 (Given - Provider: Alicja Roldan) 1110 (Given - Provider: Sayda Gray RN) 0859 (Given - Provider: Alicja Roldan) citalopram (CELEXA) tablet 20 mg (CANCELED) 20 mg, oral, DAILY, First dose on Wed04/15/11 at 0900, Until Discontinued, Routine, On Unit 0905 (Given - Provider: Alicja Roldan) 1110 (Given - Provider: Sayda Gray RN) 0859 (Given - Provider: Alicja oRldan) cyanocobalamin tablet 1,000 mcg (CANCELED) 1,000 mcg, oral, DAILY, First dose on Wed04/14/11 at 1600, Until Discontinued, Routine, On Unit 905 (Given - Provider: Alicja Roldan) 1111 (Given - Provider: Sayda Gray RN) 0858 (Given - Provider: Alicja Roldan) ferrous sulfate EC tablet 324 mg (CANCELED) 324 mg, oral, DAILY WITH BREAKFAST, First dose on Wed04/15/11 at 0800, Until Discontinued, Routine 906 (Given - Provider: Alicja Roldan) 1111 (Given - Provider: Sayda Gray RN) 0858 (Given - Provider: Alicja Roldan) folic acid (FOLVITE) tablet 1 mg (CANCELED) 1 mg, oral, DAILY, First dose on Wed04/14/11 at 1600, Until Discontinued, Routine, On Unit 907 (Given - Provider: Alicja Roldan) 1111 (Given - Provider: Sayda Gray RN) 0858 (Given - Provider: Alcija Roldan) ibuprofen (MOTRIN) tablet 400 mg () 400 mg, oral, EVERY 4 HOURS, 12 doses, First dose on Wed04/14/11 at 1600, Last dose on Wed04/16/11 at 1200, Routine, On Unit 0012 (Given - Provider: Sara Kitchen RN)0429 (Given - Provider: Sara Kitchen RN)0902 (Given - Provider: Alicja Roldan)1233 (Given - Provider: Lissa Mcclure, HARPREET)2000 (Canceled Entry - Provider: Sara Kitchen RN) levothyroxine (SYNTHROID) tablet 25 mcg (CANCELED) 25 mcg, oral, DAILY, First dose on Wed04/15/11 at 0900, Until Discontinued, Routine 907 (Given - Provider: Alicja Roldan) 1112 (Given - Provider: Sayda Gray RN) 0859 (Given - Provider: Alicja Roldan) multivitamin vit-iron fumarate-FA (STUARTNATAL) 27-1 mg tablet 1 Tab (CANCELED) 1 Tablet, oral, DAILY, First dose on Wed04/14/11 at 1600, Until Discontinued, Routine, On Unit 09 (Given - Provider: Alicja Roldan) 1112 (Given - Provider: Sayda Gray RN) 0858 (Given - Provider: Alicja Roldan) oxycodone (ROXICODONE) immediate release tablet 5-10 mg (COMPLETED)(Linked Group 1) 5-10 mg, oral, EVERY 4 HOURS, 6 doses, First dose on Wed04/15/11 at 1815, Last dose on Giulia 04/16/11 at 1600, Routine, On Unit 0011 (Given - Provider: Sara Kitchen RN)0321 (Not Given - Provider: Sara Kitchen RN - Reason: Other - Comment: dose times changed will give at o4:00)0429 (Given - Provider: Sara Kitchen RN)0903 (Given - Provider: Alicja Roldan)1234 (Given - Provider: Lissa Mcclure RN)1600 (Due - Provider: Lewis Peñaloza [facility]) PRN Medication Order 04/16/2011 04/17/2011 04/18/2011 acetaminophen (TYLENOL) tablet 325-650 mg 325-650 mg, oral, EVERY 4 HOURS PRN, Starting on Giulia 04/16/11 at 1600, Until 04/18/11 at 1903, Pain, Routine, On Unit 1846 (Given - Provider: Shira Dhaliwal) 0009 (Given - Provider: Lucia Joseph, HARPREET)0511 (Given - Provider: Lucia Joseph RN)0901 (Given - Provider: Sayda Gray RN)1507 (Given - Provider: Layla Chowdhury RN)1854 (Given - Provider: Shira Dhaliwal)2308 (Given - Provider: Shira Dhaliwal) 0305 (Given - Provider: Fanny Her, HARPREET)0708 (Given - Provider: Fanny Her, HARPREET)1449 (Given - Provider: Alicja Roldan) docusate sodium (COLACE) capsule 100 mg 100 mg, oral, 2 TIMES DAILY PRN, Starting on Wed04/14/11 at 1531, Until 04/18/11 at 1903, Constipation, Routine, On Unit 0027 (Given - Provider: Sara Kitchen RN)1233 (Given - Provider: Lissa Mcclure, HARPREET)1847 (Given - Provider: Shira Dhaliwal) 1854 (Given - Provider: Shira Dhaliwal) 1449 (Given - Provider: Alicja Roldan) ibuprofen (MOTRIN) tablet 400 mg 400 mg, oral, EVERY 4 HOURS PRN, Starting on Giulia 04/16/11 at 0000, Until 04/18/11 at 1903, Pain, Routine, On Unit 1847 (Given - Provider: Shira Dhaliwal) 0009 (Given - Provider: Lucia Joseph RN)0511 (Given - Provider: Lucia Joseph RN)0901 (Given - Provider: Sayda Gray, HARPREET)1506 (Given - Provider: Layla Chowdhury, HARPREET)185 (Given - Provider: Shira Dhaliwal)2308 (Given - Provider: Shira Dhaliwal) 0304 (Given - Provider: Fanny Her, HARPREET)0708 (Given - Provider: Fanny Her RN)1448 (Given - Provider: Alicja Roldan) lansinoh HPA lanolin (CANCELED) topical (top), PRN, Starting on 04/17/11 at 0028, Until 04/18/11 at 1903, Other, Breast Care 0511 (Given - Provider: Lucia Joseph RN) oxycodone (ROXICODONE) immediate release tablet 5-10 mg 5-10 mg, oral, EVERY 4 HOURS PRN, Starting on Giulia 04/16/11 at 2200, Until 04/18/11 at 1903, Pain, Routine, On Unit 1847 (Given - Provider: Shira Dhaliwal) 0009 (Given - Provider: Lucia Joseph RN)0511 (Given - Provider: Lucia Joseph RN)0901 (Given - Provider: Sayda Gray RN)1506 (Given - Provider: Layla Chowdhury, HARPREET)185 (Given - Provider: Shira Dhaliwal)2309 (Given - Provider: Shira Dhaliwal) 0304 (Given - Provider: Fanny Her RN)0709 (Given - Provider: Fanny Her, RN)1449 (Given - Provider: Alicja Roldan) Linked Groups Order Group 1: oxycodone (ROXICODONE) immediate release tablet 5-10 mg () 5-10 mg, oral, EVERY 4 HOURS PRN, Starting on Wed04/14/11 at 1412, Until Wed04/15/11 at 1411, Pain, Routine, On Unit Followed by oxycodone (ROXICODONE) immediate release tablet 5-10 mg (COMPLETED)Jump to med 5-10 mg, oral, EVERY 4 HOURS, 6 doses, First dose on Wed04/15/11 at 1815, Last dose on Wed04/16/11 at 1600, Routine, On Unit documented in this encounter Orders Medications Ordered That Aldo ht Not Have Been Administered Count Last Ordered Date First Ordered Date atropine 0.1 mg/mL 10 mL syringe 0.5 mg 1 0 04/14/2011 b complex vitamins capsule 1 Cap 1 04/14/20 11 calcium carbonate (TUMS) 200 mg calcium (500 mg) per chewable tablet Chew 1-2 Tab 1 04/14/2011 Calcium-Cholecalciferol (D3) (CALTRATE) 600 mg(1,500mg) -400 unit tablet 1 Tab 1 04/14/2011 carboprost (HEMABATE) intram uscular injection 250 mcg 1 04/14/2011 ceFAZolin (ANCEF) syringe 1 04/14/2011 dextrose 5 % and 0.45 % NaCl with KCl 20 mEq/L infusion 1 04/14/2011 erythromycin (ROMYCIN) 5 mg/ gram (0.5 %) ophthalmic ointment 1 04/14/2011 fentanyl citrate (PF) 50 mcg /mL injection 25-100 mcg 1 04/14/2011 ferrous sulfate tablet 325 mg 04/14/2011 ibuprofen (MOTRIN) tablet 400 mg 2 04/14/20 11 insulin aspart (NOVOLOG) injection 2010 methylergonovine (METHERGINE ) injection 200 mcg 04/14/2011 misoprostol (CYTOTEC) tablet 200 mcg 03/21 misoprostol (CYTOTEC) tablet 800 mcg 03/21 morphine injection 1-2 mg 1 04/14/2011 nalbuphine (NUBAIN) injection 2.5-5 mg 1 naloxone (NARCAN) injection 0.1 mg 2 2010 naloxone (NARCAN) injection 0.2 mg 1 2010 ondansetron (PF) (ZOFRAN) injection 2-4 mg 1 04/14/2011 ondansetron (PF) (ZOFRAN) injection 4 mg 1 04/14/2011 oxytocin in lactated ringers 30 units/500 ml 3 04/14/2011 phytonadione (VITAMIN K) 1 m g/0.5 mL injection 1 04/14/2011 zolpidem (AMBIEN) tablet 5 mg 1 04/14/2011 Admission Count Last Ordered Date First Orde red Date ADMIT TO INPATIENT 1 04/14/2011 PPS NOTIFICATION OF PATIENT ARRIVAL ON UNIT 1 04/14/2011 PPS NOTIFICATION OF SENDING PATIENT OFF THE UNIT 1 04/14/2011 Transfer Count Last Ordered Date First Orde red Date TRANSFER PATIENT 1 04/14/2011 Discharge Count Last Ordered Date First Orde red Date DISCHARGE PATIENT 1 04/18/2011 documented in this encounter Care Teams Csm Consultant Relationship Specialty Start Date End Date Phylicia Brown NP [address] [place] [id number] PCP - General 09/19/10 11/20/13 documented as of this encounter
--- OUTSIDE RECORDS SUMMARY | 2024-04-22 04:28 | XMS_ITS | Encounter Summary ---
Author Organization [facility] Address [address] [place] [address] Care Team Providers Care Eating Disorder Psychologist Name Role Phone Edmar Temple MD Primary Care Provider [phone] Reason for Visit * Reason Onset Date Comments Update 12/28/2013 insurance Encounter Details Date Type Department Care Team (Late st Contact Info) Description 12/28/2013 Telephone [facility] Endocrinology - [facility] [address] [place] [address] Shanika Aquino NP [address] [facility] [address] [place] [address] Update (insurance ) Social History Tobacco Use Types Packs/Day [...] * Telephone Encounter - Genoveva Yost - 12/28/2013 1245 EDT Spoke with Kymberly- Paperwork was faxed on 12/20/13 @ 10:45 to [employer] for her new pump. Gave her the number ( ) to follow up with [employer] to see what the hold up is. Pt verbalized understanding and will call. * Telephone Encounter - Dedra Silver - 12/28/2013 0912 EDT Pt calling to speak with Sonia, states she has still not heard from insurance company. Wondering if there is anything else she should be doing. Please call. documented in this encounter Plan of Treatment Upcoming Encounters Date Type Department Care Team (Late st Contact Info) Description 05/17/2024 13:00 EDT Office Visit [facility] Endocrinology - [address] [phone] Twyla Mcclellan NP [address] [place] [phone] 08/30/2024 14:00 EST Office Visit [address] [address] Twyla Mcclellan NP [address] [place] [phone] documented as of this encounter Visit Diagnoses Not on filedocumented in this encounter Care Teams Eating Disorder Psychologist Relationship Specialty Start Date End Date Edmar Temple MD [address] [place] [address] [address] [place] [id number] PCP - General 11/21/13 documented as of this encounter
--- OUTSIDE RECORDS SUMMARY | 2024-04-22 04:28 | XMS_ITS | Encounter Summary ---
Author Organization [facility] Address [address] [place] [address] Care Team Providers Care Button Breaker Name Role Phone Edmar Temple MD Primary Care Provider [phone] Encounter Details Date Type Department Care Team (Late st Contact Info) Description 03/14/2014 Orders Only [facility] Endocrinology - [address] [address] Zunilda Oconnell CDE [address] [place] [address] [address] [place] [address] Diabetes mellitus (CMS-HCC) ([facility]) (Primary Dx) Social History Tobacco Use Types [...] Da te insulin aspart (NOVOLOG) 100 unit/mL injectionIndications:Diab etes mellitus ([facility]) Inject 200 Units into the skin daily Omnipod insulin pump. 180 mL 3 03/14/2014 11/07/2014 documented in this encounter Plan of Treatment Upcoming Encounters Date Type Department Care Team (Late st Contact Info) Description 05/17/2024 13:00 EDT Office Visit [facility] Endocrinology - [address] [address] Twyla Mcclellan NP [address] [address] 08/30/2024 14:00 EST Office Visit [facility] Endocrinology - [address] [address] Twyla Mcclellan NP [address] [place] [phone] documented as of this encounter Visit Diagnoses Diagnosis Diabetes mellitus ([facility])- Primary Type II or unspecified type diabetes mellitus without mention of complication, not stated as uncontrolled documented in this encounter Discontinued Medications Medication Sig Discontinue Reason Start Date End Da te insulin aspart (NOVOLOG) 100 unit/mL injectionIndications:Di abetes mellitus ([facility]) Inject into the skin Via medtronic mini med pump . Reorder 03/14/2014 documented as of this encounter Care Teams Button Breaker Relationship Specialty Start Date End Date Edmar Temple MD [address] [place] [address] [employer] [address] [place] [phone] PCP - General 11/21/13 documented as of this encounter
--- OUTSIDE RECORDS SUMMARY | 2024-04-22 04:28 | XMS_ITS | Encounter Summary ---
Author Organization [facility] Address [address] [place] [address] Care Team Providers Care Computerized Mill Mill Recorder Name Role Phone RossPhylicia Carrizales NP Primary Care Provider Encounter Details Date Type Department Care Team (Late st Contact Info) Description 04/23/2011 Orders Only [facility] Bariatric Surgery [address] [address] Brielle Mendez S, INSTRUCTOR ROBOTICS [address] [facility] [address] [phone] HTN (hypertension); Hypothyroid; Morbid obesity ([facility]); Postresectional malabsorption syndrome; DM type 2 (diabetes mellitus, type 2) ([facility]) ([facility]); ANUPAM (obstructive sleep apnea); S/P gastric bypass Social History Tobacco Use Types Packs/Day Years [...] Info) Description 05/17/2024 13:00 EDT Office Visit [facility] Endocrinology - [address] [address] Twyla cMclellan NP [address] [place] [address] [address] [place] [address] 08/30/2024 14:00 EST Office Visit [facility] Endocrinology - [address] [address] Twyla Mcclellan NP [address] [place] [phone] documented as of this encounter Visit Diagnoses Diagnosis HTN (hypertension) Unspecified essential hypertension Hypothyroid Unspecified hypothyroidism Morbid obesity ([facility]) Morbid obesity Postresectional malabsorption syndrome Other and unspecified postsurgical nonabsorption DM type 2 (diabetes mellitus, type 2) ([facility]) Type II or unspecified type diabetes mellitus without mention of complication, not stated as uncontrolled ANUPAM (obstructive sleep apnea) Obstructive sleep apnea (adult) (pediatric) S/P gastric bypass Bariatric surgery status documented in this encounter Care Teams Computerized Mill Mill Recorder Relationship Specialty Start Date End Date Phylicia Brown NP [address] [place] [address] PCP - General 09/19/10 11/20/13 documented as of this encounter
--- OUTSIDE RECORDS SUMMARY | 2024-04-22 04:29 | XMS_ITS | Encounter Summary ---
Author Organization [facility] Address [address] [place] [address] Care Team Providers Care Director Of Golf Name Role Phone MkSongPhylicia CARDIOVASCULAR DISEASE SPECIALIST Primary Care Provider Encounter Details Date Type Department Care Team (Late st Contact Info) Description 09/26/2010 Results Only [facility] Obstetrics & Midwifery - [address] [phone] Autumn Parry MD [address] [address] Social History Tobacco Use Types Packs/Day Years [...] 05/17/2024 13:00 EDT Office Visit [facility] Endocrinology - [facility] [address] [place] [address] Twyla Mcclellan NP [address] [phone] 08/30/2024 14:00 EST Office Visit [facility] Endocrinology - [facility] [address] [place] [address] Twyla Mcclellan CARDIOVASCULAR DISEASE SPECIALIST 62 [facility] [employer] [address] [address] documented as of this encounter Procedures Procedure Name Priority Date/Time Associated Diagnosis Comments CYTOPATHOLOGY Routine 09/26/2010 0:00 EST documented in this encounter Results * CYTOPATHOLOGY (09/26/2010 0:00 EST) Pathologist [facility] Pathology Report: CYTOPATHOLOGY REPORT ? Reports generated via electronic interface contain original data; ? however they are lacking the format of the original report. ? Caution should be taken when reading/interpreti ng unformatted reports. ? Name: ? LINDA STEWART ? Accession #: ? [id number] ? : ? 1975 (Age: 35) ??F ?Collect Date: ? 09/26/2010 ? Location: ? [facility] ? Receive Date: ? 09/29/2010 ? Provider: ?AUTUMN D KATHRYN MD ? Copy to: ? Specimen/Source: ?Pap Test, Cervix/Endocervix, ThinPrep Imaging System ? with manual evaluation ? Last Menstrual Period: ? Menstrual/Pregnanc y Status: ? SPECIMEN ADEQUACY ? Satisfactory for Evaluation ? - transformation zone component present ? GENERAL CATEGORIZATION ? Negative for Intraepithelial Lesion or Malignancy ? INTERPRETATION ? Shift in edmundo present suggestive of bacterial vaginosis. ? Document reviewed and electronically signed by: ? Lulú Markell, CT(ASCP) ? Report Date: ??10/01/2010 13:28 ? End of Report ? CARLY CAR[facility]A 09/26/2010 09/29/2010 Autumn Parry MD PATHOLOGY ORDERABLES Performing Organization Address City/State/[facility] Co de Phone Number [facility] [address] [place] [address] documented in this encounter Visit Diagnoses Not on filedocumented in this encounter Care Teams Director Of Golf Relationship Specialty Start Date End Date Phylicia Brown NP [address] [place] [address] PCP - General 09/19/10 11/20/13 documented as of this encounter
--- OUTSIDE RECORDS SUMMARY | 2024-04-22 04:29 | XMS_ITS | Encounter Summary ---
Author Organization [facility] Address [address] [place] [address] Care Team Providers Care Child Development Assistant Name Role Phone MkSongPhylicia SACHIN Primary Care Provider Reason for Visit * Reason Comments Initial Visit prior [facility] pt - Ty pe 2 DM , S/P bariatric surgery 07/29 Encounter Details Date Type Department Care Team (Late st Contact Info) Description 09/26/2010 14:00 EST Initial [facility] Obstetrics & Midwifery - [address] [id number] Autumn Parry MD [address] [address] [place]: 10w5d Social History Tobacco Use Types Packs/Day Years Used Date Smoking Tobacco: Former Cigarettes Q uit: 09/26/2003 Comments Yes Sex and Gender Information Value Date Recorded Sex Assigned at Not on file Gender Identity Not on file Sexual Orientation Not on file documented as of this encounter Last Filed Vital Signs Vital Sign Reading Time Taken Comments Blood Pressure 142/78 09/26/2010 1426 EST Pulse - - Temperature - - Respiratory Rate - - Oxygen Saturation - - Inhaled Oxygen Concentration - - Weight 96.6 kg (213 lb) 09/26/2010 1426 EST Height 170.2 cm (5' 7) 09/26/2010 1426 EST Body Mass Index 33.36 09/26/2010 1426 EST documented in this encounter Progress Notes * Autumn Parry - 09/26/2010 1801 EST M Attending: I saw and evaluated patient and agree with plan of care as noted. Autumn Parry MD * Lorelei Kitchen MD - 09/26/2010 1703 EST MFM Fellow Dictation [id number] Lorelei Kitchen MD documented in this encounter Consult Notes * Lorelei Kitchen MD - 10/13/2010 1134 EST DIVISION OF MATERNAL MEDICINE CONSULTATION - 09/26/2010 REASON FOR VISIT: Establish high risk obstetrical care. HISTORY OF PRESENT ILLNESS: The patient is a 35-year-old 2, para 1001 currently at 10 weeks, 5 days gestation by early ultrasound performed by Dr Friedman on 09/13/2010 where crown-rump lengthgave the gestation estimated delivery date of 04/19/2011. This was performed due to spotting and a small subchorionic hemorrhage was demonstrated. This spotting has essentially resolved by the time ofthis visit. The patient notes a blood type O positive, which was confirmed in her records today. The patient's medical history is significant for type 2 diabetes diagnosed at age 24, approximately 11years ago. She was managed with oral agents until her in 2004, where she was started on insulin, which she continued throughout the . The patient went on to have a gastric bypass performed last year where she lost 110 pounds per her report, and with the significant weight loss, she went from using what she says is 700 units of insulin per day to oral agents only over a ten month period of time. She has restarted her insulin pump under the care of Phylicia Brown, who deuce nurse practitioner who works in [place], [place] where she is currently on NovoLog settings of 1 unit at 12:00 a.m., 4 units at 4:00 a.m., 0.6 units at 8:00 a.m. and at 6:00 p.m. 1 unit. She has had excellent glycemic control and notes that her fastings are 70 to 80, and her postprandial lunches and dinners are between 100 and 120. Her predinners are 90s. She plans to continue with insulin and diabetic care through her primary care provider Phylicia Zuleta. The patient has had no other complications from diabetes in terms of cardiac or heart disease. OTHER PAST MEDICAL HISTORY: The patient has a history of chronic hypertension, which was diagnosed approximately eight years ago. She was on a number of medications in the past including Cozaar, Procardia and Aldomet. Since her gastric bypass, she has been off all antihypertensive since July, when her blood pressures were noted to be in the 110s/60s. Additionally, the patient has a history of asthma that never required intubation or hospitalization. This has resolved with her weight loss. She is currently not using inhalers or any asthma medications. The patient does have a history of depression treated with Celexa 20 mg daily. She has tried togo off Celexa, however, had significant mood instability and plans to continue it through the . PAST OBSTETRICAL HISTORY: In 2004, the patient had a complicated by class B type 2 diabetes and chronic hypertension. She noted premature rupture of membranes at 38 weeks' gestation. She underwent induction with Pitocin, however, due to variables and late decelerations and nonreassuring assessment, the decision was made to proceed with a low transverse section. Her operati ve report was reviewed and has been scanned into PRISM. This was here at [facility]. She had an8 pound 2 ounce male infant without further complication. PAST SURGICAL HISTORY: In July of 2009, the patient had a laparoscopic Alfredo-en-Y gastric bypassperformed here at [facility]. She has been followed by Alma Mendez in [place] for her care following her surgery. At this point, she is seeing them every 3 months during the for laboratory assessment and continued care. Other surgery is low transverse section in 2004, as described above. ALLERGIES: No known drug allergies. MEDICATIONS: Metformin 850 mg p.o. b.i.d. Synthroid 25 mcg p.o. daily. Celexa 20 mg p.o. daily. Calcium carbonate p.o. daily. Iron b.i.d. Vitamin B12 daily. Vitamin B complex. Multivitamin. vitamins. Folic acid 1 mg daily in addition to her vitamin. GYNECOLOGIC HISTORY: Negative for abnormal Paps. The patient's last Pap was in 2004. She denies history of sexually transmitted infections. She had resumption of regular menses since her weight loss with periods every month. This was a planned . FAMILY HISTORY: Significant for type 2 diabetes in her parents, grandparents and brother. She denies family history of congenital anomalies, developmental disorders, mental retardation, , DVT, PE. She has a family history of ovarian cancer in her maternal grandmother. SOCIAL HISTORY: The patient denies tobacco, alcohol and drug use. OBJECTIVE: Blood pressure 142/78, weight 213 pounds. On physical exam, the patient is a well-developed, well-nourished female in no acute distress. HEENT: Normocephalic, atraumatic. Neck supple, without thyromegaly or lymphadenopathy. Heart regular rate and rhythm without murmurs, rubs orgallops. Lungs clear to auscultation bilaterally. Abdomen soft, obese, nontender to palpation. A well-healed Pfannenstiel skin incision was present as well as laparoscopic well-healed incisions. Extremities without cyanosis, clubbing or edema. : Normal external genitalia, normal cervix. No vaginal bleeding was present. Pap smear was performed. GC/C were sent. ASSESSMENT AND PLAN: The patient is a 35-year-old 2, para 1001, currently at 10 weeks, 5 days with an LONG of 04/19/2011, presenting for obstetrical care. 1. Type 2 diabetes. The patient is currently managed by Phylicia Brown in [place]. the patient at this time prefers to have her insulin pump to manage through her. She has excellent glycemic control at this time. We did discuss having a consultation with endocrinology, which may be necessaryas the progresses, which also would be a reasonable option in terms of long-term diabeticcare planning. We discussed that she should discontinue her metformin and that she will likely needto increase her insulin pump settings when she discontinues her metformin and this would be for theduration of the . We discussed screening labs including a hemoglobin A1c, thyroid functiontests, routine labs, a 24-hour urine for protein and creatinine to establish a baseline aswell as an AFP at 16 weeks and a detailed ultrasound at 18 to 19 weeks gestation. We also discussedthat a echocardiogram would be indicated at 22 to 23 weeks gestation in addition to monthly growth ultrasounds starting around 28 weeks with testing at 32 weeks and delivery at 39 weeks gestation. At this point, the patient declines aneuploidy testing. She is scheduled for a viability ultrasound here at our diagnostic center following the visit. 2. Global obstetrical care. We reviewed labs. She has declined aneuploidy screening and wediscussed other care as outlined above under diabetes. The patient will have her labs drawn at [facility] and have the results faxed to us. 3. Chronic hypertension. We discussed that in the past, the patient has needed antihypertensives. Should her blood pressures become more significantly elevated, we would start labetalol for blood pressure control. She is getting a 24-hour urine as a baseline, and we will follow growth closely. DISPOSITION: The patient will return to clinic in 3 weeks. She will continue to see Phylicia Brown in [place] and her practice for management of her insulin pump. We discussed our goals of fasting being less than 95 and 2 hour postprandial sugars being less than 120 and that her insulin requirement will increase as the progresses and that should be expected in addition to the increase that will likely occur once she discontinues her metformin. The patient was seen in conjunction with Dr Autumn Parry, who agrees with the above assessment and plan. We will see her back in 3 weeks. I saw and examined the patient with the resident/fellow. I agree with the findings and plan of caredocumented in the resident's/fellow's note. Electronically Signed by Autumn Parry MD 10/13/2010 11:34 Lorelei Kitchen MD Autumn Parry MD - Lorelei Kitchen MD - HB Job ID: SM Doc ID: [id number] Ext Doc ID: [id number] cc: Phylicia Brown NP documented in this encounter Plan of Treatment Upcoming Encounters Date Type Department Care Team (Late st Contact Info) Description 05/17/2024 13:00 EDT Office Visit [facility] Endocrinology - [facility] [address] [place] [address] Twyla Mcclellan NP 62 [facility] [address] [place] [address] 08/30/2024 14:00 EST Office Visit [facility] Endocrinology - [facility] [address] [place] [address] Twyla Mcclellan NP [address] [phone] Scheduled Orders Name Type Priority Associated Diagnoses Orde r Schedule PAP TEST- ORDER ONLY Pathology Routine Supervision of high-risk Ordered: 09/26/2010 documented as of this encounter Procedures Procedure Name Priority Date/Time Associated Diagnosis Comments CHLAMYDIA/N. GONORRHOEAE AMPLIFIED NUCLEIC ACID Routine 09/26/2010 16:51 EST Screening examination for venereal disease documented in this encounter Results * CHLAMYDIA/GC AMPLIFIED (09/26/2010 16:51 EST) Specimen Description Endocervix [facility] Chlamydia Result No Chlamydia trachomatis DNA detected by tree loader meat mediated amplification. [facility] GC Result No Neisseria gonorrhoeae DNA detected by tree loader meat mediated amplification. [facility] Specimen of unknown material (specimen) 09/26/2010 16:51 EST 09/26/2010 20:31 EST Autumn Parry MD MICROBIOLOGY - GENER AL ORDERABLES [facility] [address] [place] [address] documented in this encounter Visit Diagnoses Diagnosis Supervision of high-risk - Primary Unspecified high-risk Diabetes mellitus, antepartum(648.03) Diabetes mellitus, antepartum Benign essential hypertension antepartum Screening examination for venereal disease documented in this encounter Discontinued Medications Medication Sig Discontinue Reason Start Date End Da te ALBUTEROL SULFATE (PROVENTIL INHL) Inhale 2 Puffs as directed as needed. Discontinued by another clinician 09/26/2010 fluticasone (FLONASE) 50 mcg/Actuation nasal spray 1 [place] by Nasal route as needed. Discontinued by another clinician 09/26/2010 fluticasone-salmetero l (ADVAIR) 500-50 mcg/Dose diskus inhaler Inhale 1 Puff as directed as needed. Discontinued by another clinician 09/26/2010 losartan (COZAAR) 100 mg tablet Take 100 mg by mouth daily. Discontinued by another clinician 09/26/2010 NORETHINDRONE, [id number], (JOLIVETTE ORAL) Take by mouth daily. 06/30/2010 09/26/2010 simvastatin (ZOCOR) 20 mg tablet Take 20 mg by mouth at bedtime. Discontinued by another clinician 09/26/2010 documented as of this encounter Historical Medications * This list may reflect changes made after this encounter. Medication Sig Dispensed Refills Start Date End Date PNV WITH CA8/IRON/FA/LMEFOLATE (PNV-IRON ORAL)Indications:pregna ncy Take 1 Tab by mouth. Indications: 1 folic acid (FOLVITE) 1 mg tabletIndications:preve nt neural tube defect Take 1 mg by mouth daily. Indications: PREVENTION OF NEURAL TUBE DEFECTS 04/18/2011 added in this encounter Care Teams Child Development Assistant Relationship Specialty Start Date End Date Phylicia Brown NP [address] [place] [address] PCP - General 09/19/10 11/20/13 documented as of this encounter
--- OUTSIDE RECORDS SUMMARY | 2024-04-22 04:29 | XMS_ITS | Encounter Summary ---
Author Organization [facility] Address [address] [place] [address] Care Team Providers Care International Marketing Coordinator Name Role Phone Phylicia Brown IMPREGNATING TANK OPERATOR Primary Care Provider Encounter Details Date Type Department Care Team (Late st Contact Info) Description 03/20/2011 Results Only [facility] [phone] Point, Of Care User [address] [place] [address] Social History Tobacco Use Types Packs/Day Years [...] Info) Description 05/17/2024 13:00 EDT Office Visit [facility] Endocrinology [address] [address] Twyla Mcclellan NP [address] [place] [phone] 08/30/2024 14:00 EST Office Visit [address] [phone] Twyla Mcclellan NP [address] [place] [phone] documented as of this encounter Procedures Procedure Name Priority Date/Time Associated Diagnosis Comments POCT URINALYSIS Routine 03/20/2011 14:54 EDT documented in this encounter Results * (ABNORMAL) POCT URINALYSIS (03/20/2011 14:54 EDT) Color ORANGE [facility] Clarity, UA SLIGHTLY CLOUDY [facility] Glucose 3+(A) NEG [facility] Bilirubin Neg NEG [facility] Ketones Trace(A) NEG [facility] Specific [place] >=1.030 1.001 - 1.035 [facility] Blood 1+(A) NEG [facility] pH 6.0 4.6 - 8.0 [facility] Protein Neg NEG [facility] Urobilinogen 0.2 0.2 - 1.0 E.U./dl [facility] Nitrite Neg NEG [facility] Leuk Esterase Neg NEG [facility] MIN machine preservative filler ID [id number] Test performed at [facility] 03/20/2011 14:5 4 EDT 03/20/2011 14:58 EDT Of Care User Point POINT OF CARE TEST O RDERABLES [facility] [address] [place] [address] documented in this encounter Visit Diagnoses Not on filedocumented in this encounter Care Teams International Marketing Coordinator Relationship Specialty Start Date End Date Phylicia Brown NP [address] [place] [address] PCP - General 09/19/10 11/20/13 documented as of this encounter
--- OUTSIDE RECORDS SUMMARY | 2024-04-22 04:29 | XMS_ITS | Encounter Summary ---
Author Organization [facility] Address [address] [place] [id number] Care Team Providers Care Heel Stiffener Name Role Phone CodyAllPhylicia SACHIN Primary Care Provider Reason for Visit * Reason Comments Routine Visit Encounter Details Date Type Department Care Team (Late st Contact Info) Description 10/17/2010 15:30 EST Routine [facility] Obstetrics & Midwifery - [address] [address] Autumn Parry MD [address] [phone] GA: 13w5d Social History Tobacco Use Types Packs/Day Years Used Date Smoking Tobacco: Former Cigarettes Q uit: 09/26/2003 Comments Yes Sex and Gender Information Value Date Recorded Sex Assigned at Not on file Gender Identity Not on file Sexual Orientation Not on file documented as of this encounter Last Filed Vital Signs Vital Sign Reading Time Taken Comments Blood Pressure 128/80 10/17/2010 1513 EST Pulse - - Temperature - - Respiratory Rate - - Oxygen Saturation - - Inhaled Oxygen Concentration - - Weight 97.2 kg (214 lb 3.2 oz) 10/17/[address] Height - - Body Mass Index 33.55 09/26/2010 1426 EST documented in this encounter Ordered Prescriptions Prescription Sig Dispensed Refills Start Date End Da te amoxicillin (AMOXIL) 500 mg capsule Take 1 Cap by mouth 2 times daily for 7 days. 14 Cap 0 10/17/2010 10/24/2010 documented in this encounter Progress Notes * Autumn Parry - 10/17/2010 1725 EST I reviewed with the fellow and agree with the assessment and plan of care as noted. Autumn Parry MD * Lorelei Kitchen MD - 10/17/2010 1610 EST MFM Fellow S: Doing well. Complains of a sinus infection that has been present over the last 2 weeks, now withgreenish drainage. No fevers. No cough/CP. Sugars still well controlled. On Metformin, insulin pump. Following with Phylicia Caceres, has seen endocrine, will set up visit with them in the nextmonth. O: Filed Vitals: 10/17/2010 1513 BP: 128/80 Weight: 97.16 kg (214 lb 3.2 oz) FHR 150s HEENT- NCAT, tenderness to palpation over maxillary sinuses Pulm CTAB CV RRR Kymberly Means a 35 y.o. @ [id number] Diabetes - Lorelei Kitchen MD 10/17/101724 Signed Sugars well controlled on current settings, no change from initial new visit note. Pt still taking metformin. She will discontinue this as she is having overnight lows in the 40s. She may need to increase her settings once she stops her metformin, she will coordinate that with her PCP. 24 hr urine completed. AFP ordered. Detailed US ordered. HTN (hypertension) - Lorelei Kitchen MD 10/17/101724 Signed Normotensive Hypothyroid - Lorelei Kitchen MD 10/17/101724 Signed Reviewed normal thyroid studies Status Post Gastric Bypass for Obesity - Lorelei Kitchen MD 10/17/101725 Signed Has visit to review recent labs/ vitamin replacement status in October. RTC 2-3 weeks. Sent script for amoxicillin 500 BID x 7 days to [facility] in [place]. Lorelei Kitchen MD * Randee Smith - 10/17/2010 1512 EST Pt's only complaint at this time is URI s/s. Labs done @ [facility]. documented in this encounter Miscellaneous Notes * Assessment & Plan Note - Lorelei Kitchen MD - 10/17/2010 1726 ESTAssociated Problem(s): Status post gastric bypass for obesity Has visit to review recent labs/ vitamin replacement status in October. * Assessment & Plan Note - Lorelei Kitchen MD - 10/17/2010 1725 ESTAssociated Problem(s): Hypothyroidism Reviewed normal thyroid studies * Assessment & Plan Note - Lorelei Kitchen MD - 10/17/2010 1725 ESTAssociated Problem(s): Hypertensive disorder Normotensive * Assessment & Plan Note - Lorelei Kitchen MD - 10/17/2010 1725 ESTAssociated Problem(s): Diabetes mellitus ([facility]) Sugars well controlled on current settings, no change from initial new visit note. Pt still taking metformin. She will discontinue this as she is having overnight lows in the 40s. She may need to increase her settings once she stops her metformin, she will coordinate that with her PCP. 24 hr urine completed. AFP ordered. Detailed US ordered. documented in this encounter Plan of Treatment Upcoming Encounters Date Type Department Care Team (Late st Contact Info) Description 05/17/2024 13:00 EDT Office Visit [facility] Endocrinology - [address] [address] Twyla Mcclellan NP [address] [phone] 08/30/2024 14:00 EST Office Visit [facility] Endocrinology - [facility] [address] [facility] [place] [address] Twyla Mcclellan NP 62 [facility] [address] [place] [address] documented as of this encounter Procedures Procedure Name Priority Date/Time Associated Diagnosis Comments [facility] DETAILED Routine 11/28/2010 14:43 EST with other poor obstetric history Diabetes mellitus, antepartum Gastric bypass for obesity complicating , , puerperium documented in this encounter Results * [facility] DETAIL[facility] (11/28/2010 14:43 EST) Anatomical Region Laterality Modality Other 11/28/2010 14:4 3 EST 11/28/2010 14:49 EST Narrative 11/28/2010 14:49 EST Indication: Maternal disease: Diabetes, pregestational. Maternal age (35 years). History: Age: 35 years. Maternal age at EDC: 36 years. : 2 Para: 1. Previous pregnancies: Children born at term: 1. Living children: 1. Dating: Stated EDC: ??EDC: 04/19/2011 GA by stated EDC: 19w5d Current Scan on: 11/28/2010 EDC: 04/22/2011 GA by current scan: 19w2d Best Overall Assessment: 09/26/2010 EDC: 04/19/2011 Assessed GA: 19w5d The calculation of the gestational age by current scan was based on BPD, HC, TCD, AC, FL and HUM. The Best Overall Assessment is based on the stated EDC. General Evaluation: heart activity: Present. heart rate: 147 bpm. Presentation: variable. movement: visible. Amniotic Fluid: Normal. Cord: 3 Vessels. Placental cord insertion site: Normal. cord insertion site: Normal. Placenta: Anterior. Structure: normal. Anatomy Scan: Rousseau gestation. Biometry: BPD 42.6 mm 18th% 18w6d (18w2d to 19w3d) HC 168.3 mm 31st% 19w3d (18w0d to 21w0d) AC 135.5 mm 21st% 19w0d (18w2d to 19w5d) FL 30.7 mm 35th% 19w4d (17w5d to 21w2d) OFD 60.6 mm 69th% 20w0d TCD 19.7 mm 43rd% 19w4d HUM 29.3 mm 48th% 19w5d RAD 23.7 mm 20th% 18w6d TIB 27.7 mm 64th% 20w2d FIB 26.9 mm 45th% 19w3d CM 4.7 mm 43rd% NUCHAL FOLD 4.06 mm HC/AC Ratio 1.242 ??84th% FL/AC Ratio 0.227 ??80th% BPD/FL Ratio 1.388 ??<5th% BPD/OFD Ratio 0.703 ??<5th% EFW (lbs/oz) 0 lbs 9 ozs EFW (g) 263 g ??11th% Anatomy: Head: head shape appears normal. Brain: Cerebellum, choroid plexus, cisterna magna, lateral cerebral ventricles, midline falx and cavum septi pellucidi appear normal. Face: eyes normal, profile normal, nose normal, lip normal, palate normal. Spine: Cervical, thoracic, lumbar and sacral spine appear normal Neck / Skin: No neck masses seen. Thorax: No thoracic abnormalities detected. Heart: Four chamber heart and outflow tracts appear normal. Abdominal Wall: Normal cord insertion into the abdominal wall is seen. Gastrointestinal Tract: Stomach appears normal. Kidneys / Adrenal Glands: Bilateral kidneys appear normal. Bladder: bladder appears normal in size and shape. Genitalia: Female fetus. Extremities: Both upper and lower extremities are seen. Skeleton: No evidence of skeletal abnormality detected. Genetic Sonogram: measured FL: 30.7 mm exp. FL: 29.1 mm measured HUM: 29.3 mm exp. HUM: 28.2 mm ratio FL/exp.FL: 1.05 ratio HUM/exp.HUM: 1.04 Nuchal fold normal. Pyelectasis absent. No hyperechogenic bowel. Echogenic intracardiac focus absent. Additional Marker: Nasal bone length: normal. Maternal Structures: Uterus, cervix and both ovaries appear normal. Report Summary: Impression: [id number] Obstetrical ultrasound with and maternal evaluation, including detailed anatomic examination This is a rousseau gestation. Biometry is consistent with menstrual dating. Anatomy appears normal as noted above; however, ultrasound cannot detect all anomalies. As per the [facility] guidelines, the following were evaluated and were normal: the cerebellum (including lobes and vermis), facial profile, the chest (including examination for masses, effusion, integrity of both sides of the diaphragm and lung parenchyma), abdomen for ascites, 12-long bones with normal architecture/position of limbs, hands and feet, placental insertion site of the umbilical cord and placenta for masses. The amniotic fluid volume is normal. There is trunk and extremity movement noted. Recommendations: Follow-up as clinically indicated. ECHO is recommended at 22-24 weeks secondary to pregestational diabetes. Procedure Note 11/28/2010 Indication: Maternal disease: Diabetes, pregestational. Maternal age (35 years). History: Age: 35 years. Maternal age at EDC: 36 years. : 2 Para: 1. Previous pregnancies: Children born at term: 1. Living children: 1. Dating: Stated EDC: EDC: 04/19/2011 GA by stated EDC: 19w5d Current Scan on: 11/28/2010 EDC: 04/22/2011 GA by current scan: 19w2d Best Overall Assessment: 09/26/2010 EDC: 04/19/2011 Assessed GA: 19w5d The calculation of the gestational age by current scan was based on BPD, HC, TCD, AC, FL and HUM. The Best Overall Assessment is based on the stated EDC. General Evaluation: heart activity: Present. heart rate: 147 bpm. Presentation: variable. movement: visible. Amniotic Fluid: Normal. Cord: 3 Vessels. Placental cord insertion site: Normal. cord insertion site: Normal. Placenta: Anterior. Structure: normal. Anatomy Scan: Rousseau gestation. Biometry: BPD 42.6 mm 18th% 18w6d (18w2d to 19w3d) HC 168.3 mm 31st% 19w3d (18w0d to 21w0d) AC 135.5 mm 21st% 19w0d (18w2d to 19w5d) FL 30.7 mm 35th% 19w4d (17w5d to 21w2d) OFD 60.6 mm 69th% 20w0d TCD 19.7 mm 43rd% 19w4d HUM 29.3 mm 48th% 19w5d RAD 23.7 mm 20th% 18w6d TIB 27.7 mm 64th% 20w2d FIB 26.9 mm 45th% 19w3d CM 4.7 mm 43rd% NUCHAL FOLD 4.06 mm HC/AC Ratio 1.242 84th% FL/AC Ratio 0.227 80th% BPD/FL Ratio 1.388 <5th% BPD/OFD Ratio 0.703 <5th% EFW (lbs/oz) 0 lbs 9 ozs EFW (g) 263 g 11th% Anatomy: Head: head shape appears normal. Brain: Cerebellum, choroid plexus, cisterna magna, lateral cerebral ventricles, midline falx and cavum septi pellucidi appear normal. Face: eyes normal, profile normal, nose normal, lip normal, palate normal. Spine: Cervical, thoracic, lumbar and sacral spine appear normal Neck / Skin: No neck masses seen. Thorax: No thoracic abnormalities detected. Heart: Four chamber heart and outflow tracts appear normal. Abdominal Wall: Normal cord insertion into the abdominal wall is seen. Gastrointestinal Tract: Stomach appears normal. Kidneys / Adrenal Glands: Bilateral kidneys appear normal. Bladder: bladder appears normal in size and shape. Genitalia: Female fetus. Extremities: Both upper and lower extremities are seen. Skeleton: No evidence of skeletal abnormality detected. Genetic Sonogram: measured FL: 30.7 mm exp. FL: 29.1 mm measured HUM: 29.3 mm exp. HUM: 28.2 mm ratio FL/exp.FL: 1.05 ratio HUM/exp.HUM: 1.04 Nuchal fold normal. Pyelectasis absent. No hyperechogenic bowel. Echogenic intracardiac focus absent. Additional Marker: Nasal bone length: normal. Maternal Structures: Uterus, cervix and both ovaries appear normal. Report Summary: Impression: [id number] Obstetrical ultrasound with and maternal evaluation, including detailed anatomic examination This is a rousseau gestation. Biometry is consistent with menstrual dating. Anatomy appears normal as noted above; however, ultrasound cannot detect all anomalies. As per the [facility] guidelines, the following were evaluated and were normal: the cerebellum (including lobes and vermis), facial profile, the chest (including examination for masses, effusion, integrity of both sides of the diaphragm and lung parenchyma), abdomen for ascites, 12-long bones with normal architecture/position of limbs, hands and feet, placental insertion site of the umbilical cord and placenta for masses. The amniotic fluid volume is normal. There is trunk and extremity movement noted. Recommendations: Follow-up as clinically indicated. ECHO is recommended at 22-24 weeks secondary to pregestational diabetes. Autumn Parry MD IMG [facility] ORDERABLE S documented in this encounter Visit Diagnoses Diagnosis with other poor obstetric history(V23.49)- Primary with other poor obstetric history Diabetes mellitus, antepartum(648.03) Diabetes mellitus, antepartum Gastric bypass for obesity complicating , , puerperium Bariatric surgery status complicating , childbirth, or the puerperium, unspecified as to episode of care or not applicable documented in this encounter Care Teams Heel Stiffener Relationship Specialty Start Date End Date Phylicia Brown NP [address] [place] [id number] PCP - General 09/19/10 11/20/13 documented as of this encounter
--- OUTSIDE RECORDS SUMMARY | 2024-04-22 04:29 | XMS_ITS | Encounter Summary ---
Author Organization [facility] Address [address] [place] [address] Care Team Providers Care Press Clipper Name Role Phone Anna Marie Montero MD Primary Care Provider Phylicia Garcia NP Primary Care Provider Reason for Visit * Reason Onset Date Comments Routine Visit 09/11/2010 AIMEE 011 Encounter Details Date Type Department Care Team (Late st Contact Info) Description 09/11/2010 Orders Only [facility] Women's Services - [facility] [address] [place], [place] [phone] Kristina Stuart RN [address] [place] [phone] Supervision of other normal (Primary Dx) Social History Tobacco Use Types Packs/Day Years Used Date Smoking Tobacco: Never Assessed Sex and Gender Information Value Date Recorded Sex Assigned at Not on file Gender Identity Not on file Sexual Orientation Not on file documented as of this encounter Plan of Treatment Upcoming Encounters Date Type Department Care Team (Late st Contact Info) Description 05/17/2024 13:00 EDT Office Visit [facility] Endocrinology - [address] [phone] Twyla Mcclellan NP [address] [place] [address] [address] [place] [phone] 08/30/2024 14:00 EST Office Visit [facility] Endocrinology - [address] [address] Twyla Mcclellan NP [address] [place] [address] documented as of this encounter Procedures Procedure Name Priority Date/Time Associated Diagnosis Comments SENIOR SHAREPOINT ARCHITECT US OB FIRST TRIMESTER TRANSVAGINAL Routine 09/26/2010 16:42 EST Supervision of other normal documented in this encounter Results * SENIOR SHAREPOINT ARCHITECT US OB FIRST TRIMESTER TRANSVAGINAL (09/26/2010 16:42 EST) Anatomical Region Laterality Modality Other 09/26/2010 16:4 2 EST 09/26/2010 17:09 EST Narrative 09/26/2010 17:09 EST Indication: SENIOR SHAREPOINT ARCHITECT 1st trim.viability. History: Age: 35 years. Maternal age at EDC: 36 years. : 2 Para: 1. Previous pregnancies: Children born at term: 1. Living children: 1. Dating: Stated EDC: ??EDC: 04/19/2011 GA by stated EDC: 10w5d Current Scan on: 09/26/2010 EDC: 04/16/2011 GA by current scan: 11w1d Best Overall Assessment: 09/26/2010 EDC: 04/19/2011 Assessed GA: 10w5d The calculation of the gestational age by current scan was based on CRL. The Best Overall Assessment is based on the stated EDC. General Evaluation: heart activity: Present. heart rate: 170 bpm. movement: visible. Early Assessment: Biometry: CRL 42.5 mm 68th% 11w1d (10w2d to 12w0d) Gestational Sac present. Yolk Sac present. Embryo present. Heart activity: Present. Heart rate: 170 bpm. Movements: visible. Maternal Structures: Right Ovary: normal. Right Ovary size: 28 mm x 22 mm x 17 mm. Volume: 5.5 ml. Left Ovary: Normal ??w/ Corpus Luteum. Left Ovary size: 30 mm x 22 mm x 28 mm. Volume: 9.7 ml. Corpus Luteum Left Ovary: 18 mm x 17 mm x 15 mm. Report Summary: Impression: [id number] First trimester obstetrical US, transvaginal This is a rousseau gestation. CRL is consistent with menstrual dating. A normal heart beat and yolk sac were noted. Procedure Note 09/26/2010 Indication: SENIOR SHAREPOINT ARCHITECT 1st trim.viability. History: Age: 35 years. Maternal age at EDC: 36 years. : 2 Para: 1. Previous pregnancies: Children born at term: 1. Living children: 1. Dating: Stated EDC: EDC: 04/19/2011 GA by stated EDC: 10w5d Current Scan on: 09/26/2010 EDC: 04/16/2011 GA by current scan: 11w1d Best Overall Assessment: 09/26/2010 EDC: 04/19/2011 Assessed GA: 10w5d The calculation of the gestational age by current scan was based on CRL. The Best Overall Assessment is based on the stated EDC. General Evaluation: heart activity: Present. heart rate: 170 bpm. movement: visible. Early Assessment: Biometry: CRL 42.5 mm 68th% 11w1d (10w2d to 12w0d) Gestational Sac present. Yolk Sac present. Embryo present. Heart activity: Present. Heart rate: 170 bpm. Movements: visible. Maternal Structures: Right Ovary: normal. Right Ovary size: 28 mm x 22 mm x 17 mm. Volume: 5.5 ml. Left Ovary: Normal w/ Corpus Luteum. Left Ovary size: 30 mm x 22 mm x 28 mm. Volume: 9.7 ml. Corpus Luteum Left Ovary: 18 mm x 17 mm x 15 mm. Report Summary: Impression: [id number] First trimester obstetrical US, transvaginal This is a rousseau gestation. CRL is consistent with menstrual dating. A normal heart beat and yolk sac were noted. Kelsi Chambers MD IMG US SENIOR SHAREPOINT ARCHITECT ORDERABLE S documented in this encounter Visit Diagnoses Diagnosis Supervision of other normal - Primary documented in this encounter Care Teams Press Clipper Relationship Specialty Start Date End Date Anna Marie Montero MD PCP - General 03/26/10 09/18/10 Phylicia Brown NP [address] [place] [phone] PCP - General 09/19/10 11/20/13 documented as of this encounter
--- OUTSIDE RECORDS SUMMARY | 2024-04-22 04:29 | XMS_ITS | Encounter Summary ---
Author Organization [facility] Address [address] [place] [address] Care Team Providers Care Swing Manager Name Role Phone Phylicia Brown NP Primary Care Provider Reason for Visit * Reason Comments Blood Sugar Problem f/u 19 weeks gestati onal Encounter Details Date Type Department Care Team (Latest Contact Info) Description 11/13/2010 9:[address] [facility] Endocrinology - [facility] [address] [place] [address] Shanika Aquino NP [address] [facility] [address] [place] [address] Diabetes (CMS-HCC) (HCC-CMS) (Primary Dx) Social History Tobacco Use Types Packs/Day Years Used Date Smoking Tobacco: Former Cigarettes Q uit: 09/26/2003 Comments Yes Sex and Gender Information Value Date Recorded Sex Assigned at Not on file Gender Identity Not on file Sexual Orientation Not on file documented as of this encounter Last Filed Vital Signs Vital Sign Reading Time Taken Comments Blood Pressure 140/62 11/13/2010926 EST Pulse 76 11/13/2010926 EST Temperature - - Respiratory Rate - - Oxygen Saturation - - Inhaled Oxygen Concentration - - Weight 99.8 kg (220 lb) 11/13/2010926 EST Height 171.5 cm (5' 7.5) 11/13/2010926 EST Body Mass Index 33.95 11/13/2010926 EST documented in this encounter Patient Instructions * Patient Instructions* Shanika Aquino ANP - 11/13/2010 10:26 EST 60-90 pre-meal All under 120 Check some blood sugars pre and post 2 hours meal Bolus 15 minute pre - meal Midnight basal rate 1.1 units/hour documented in this encounter Progress Notes * Shanika Aquino ANP - 01/03/20117 EDT DIVISION OF ENDOCRINOLOGY PROGRESS/FOLLOWUP NOTE - 11/13/2010 PROBLEM: Hypothyroidism, hypertension, sleep apnea, status post gastric bypass, type 2 diabetes controlled on pump therapy, asthma, dyslipidemia. - 17 weeks MEDICATIONS: Calcium carbonate. Celexa. Vitamin B12. Vitamin D. Oral insulin. Folvite. Humalog insulin via Medtronic insulin pump, basal rates as follows: Midnight is 1.2, 4:00 a.m. is 1.4, 8:00 a.m. is 0.8, 6:00 p.m. is 0.8. Carb to insulin ratio is 12:1. Sensitivity is 20:1 Levothyroxine 25 mcg daily. - on hold Multivite. Iron supplement. Vitamin B complex. ALLERGIES: She has no known drug allergies. SUBJECTIVE: Kymberly is a 35-year-old woman seen once before me in March of 2009. At that time she had not had a bariatric surgery and was requiring large volumes of insulin. I recommended she start Lantus b.i.d. in addition to her pump, which she did, which worked well. She is seen by JETT Yuen for her diabetes as a rule. She returns today in followup for medication adjustment, complication surveillance. Hemoglobin A1c done 10/13 was 6.9% and tsh 0.71. She is 17 weeks, being seen by the high-risk OB team. Her last menses was 07/08/2010. Her last was with her son delivered 03/2005 by an emergency at 38 weeks gestational age. He was 8 pounds 2 ounces. She had some hypertension and bleeding during her . She had gastric bypass surgery in July of 2009 and she feels great. At her last visit, she weighed 306 pounds and is now down to 220. She isoff her metformin. She continues on insulin pump therapy. She says her blood sugars have been getting higher in the afternoons and she has been increasing her basal of 10% to 15%. Her goal for fastings is less than 100, at lunch is 110 and dinner less than 120. She denies chest pain, shortness of breath, numbness, tingling, calf pain, no polyuria, polydipsia,polyphagia. No blurred vision and her eye exams are up to date. No hot or cold intolerance, hair orskin changes, constipation, feeling of a lump in her throat, tremors, stomach cramping. She detectsher hypoglycemia appropriately around 60, but that has not been a major problem. Her pump is running well without problems. Download of her meter today shows she is doing very few blood sugars. They are averaging 130. Her average carb intake is about 88 +/- 37 grams per day. Her average daily intake of insulin is about 35 units, 57% being basal. She had been off all of her insulin, but went back on it about a month ago. Review of her blood sugars shows during the day they seem to be in target in the morning actually dropping postprandial breakfast, lunch a little bit into some mild lows, but then they steadily climbtill about 8:00 at night. She does not test some of her nocturnal lows she has, although she has had fewer since she stopped her metformin. LAB WORK: I do not have a recent basic metabolic panel, urine microalbumin or lipid panel. OBJECTIVE: Blood pressure 140/62, pulse is 76, weight is 220. On physical exam, obese woman in no acute distress. Heart and lung sounds unremarkable. Neck is supple, without thyromegaly. Deep tendon reflexes are +2. She has no ankle pedal edema. ASSESSMENT: Kymberly is 17 weeks , having some hypoglycemia overall glycemic control good but would like to see more testing, however. Hypertensive today. I have not seen labs, but will try to obtain those. PLAN: I have set her target blood sugar of 60 to 90 premeal and all others under 120. She is to check some pre and postprandial blood sugars for me. She is to bolus 15 minutes premeal. Her basal ratewill be 1.1 units per hour and she is to mail me blood sugars or send them electronically. I will plan to see her in 6 weeks. Time with patient 40 minutes, more than 25 minutes in patient counseling. Electronically Signed by JUAN Yoon CDE 01/03/2011 22:27 JUAN Yoon CDE - JUAN Yoon CDE - BRANDON Job ID: SM Doc ID: [id number] Ext Doc ID: [id number] cc: Phylicia Brown NP * Shanika Aquino ANP - 11/24/2010 0938 EST Note dictated documented in this encounter Plan of Treatment Upcoming Encounters Date Type Department Care Team (Late st Contact Info) Description 05/17/2024 13:[address] [facility] Endocrinology - [address] [address] Twyla Mcclellan NP [address] [place] [phone] 08/30/2024 14:[address] [facility] Endocrinology - [address] [phone] Twyal Mcclellan NP [address] [place] [phone] documented as of this encounter Visit Diagnoses Diagnosis Diabetes ([facility])- Primary Type II or unspecified type diabetes mellitus without mention of complication, not stated as uncontrolled documented in this encounter Historical Medications * This list may reflect changes made after this encounter. Medication Sig Dispensed Refills Start Date End Date levothyroxine (SYNTHROID) 25 mcg tablet Take 25 mcg by mouth daily. 11/22/2013 insulin lispro (HUMALOG) 100 unit/mL injectionIndications:Diab etes ([facility]) Inject into the skin continuous. 11/13/2010 06/01/2011 added in this encounter Care Teams Swing Manager Relationship Specialty Start Date End Date Phylicia Brown NP [address] [place] [id number] PCP - General 09/19/10 11/20/13 documented as of this encounter
--- OUTSIDE RECORDS SUMMARY | 2024-04-22 04:29 | XMS_ITS | Encounter Summary ---
Author Organization [facility] Address [address] [place] [address] Care Team Providers Care Installer Molding And Trim Name Role Phone Stephanie Phylicia INTEGRATED CIRCUITS INSPECTOR Primary Care Provider Encounter Details Date Type Department Care Team (Late st Contact Info) Description 02/13/2011 Results Only Imaging [facility] Obstetrics & Midwifery - [address] [address] Viet Vann MD [address] [facility], [address] [place] [phone] Social History Tobacco Use Types Packs/Day Years [...] Description 05/17/2024 13:00 EDT Office Visit [facility] Endocrinology - [address] [address] Twyla Mcclellan NP [address] [place] [address] [address] [place] [phone] 08/30/2024 14:00 EST Office Visit [facility] Endocrinology - [address] [phone] Twyla Mcclellan, INTEGRATED CIRCUITS INSPECTOR [address] [phone] documented as of this encounter Procedures Procedure Name Priority Date/Time Associated Diagnosis Comments [facility]PC BIOPHYSICAL PROFILE 03/06/2011 15:54 EDT documented in this encounter Results * [facility]PC BIOPHYSICAL PROFILE (03/06/2011 15:54 EDT) Anatomical Region Laterality Modality Other 03/06/2011 15:5 4 EDT 03/06/2011 16:02 EDT Narrative 03/06/2011 16:02 EDT Indication: Maternal disease: Diabetes, pregestational Type 1. Maternal age (36 years). History: Age: 36 years. Maternal age at EDC: 36 years. : 2 Para: 1. Previous pregnancies: Children born at term: 1. Living children: 1. Current : Pre- data: Weight 236 lbs. Height 5 ft 7 ins. BMI 37.0. Medical History: Diabetes Mellitus: Classification: Diabetic Type 1, Dating: Stated EDC: ??EDC: 04/19/2011 GA by stated EDC: 33w5d Best Overall Assessment: 02/27/2011 EDC: 04/19/2011 Assessed GA: 33w5d The Best Overall Assessment is based on an earlier assessment on 09/13/2010. General Evaluation: heart activity: Present. heart rate: 153 bpm. Presentation: cephalic, Spine right. movement: visible. Amniotic Fluid: Normal. POOL ??20.8 cm. Maximal vertical pocket 7.4 cm. Placenta: Anterior. Placenta Grade: Grade 1. Structure: normal. Wellbeing Assessment: Amniotic fluid: Normal. POOL: 20.8 cm. MVP: 7.4 cm. Q1: 7.4 cm. Q2: 4.4 cm. Q3: 1.9 cm. Q4: 7.1 cm. Biophysical Profile: body movements: normal (2), tone: normal (2), breathing movements: normal (2), Amniotic fluid volume: normal (2). Score 8 / 8. Report Summary: Impression: [id number] Biophysical Profile (without NST) This is a rousseau gestation. THIS STUDY IS ON DVD #550. See BPP score above. Recommendations: Follow-up with weekly BPP's. This follow-up has been scheduled. Procedure Note 03/06/2011 Indication: Maternal disease: Diabetes, pregestational Type 1. Maternal age (36 years). History: Age: 36 years. Maternal age at EDC: 36 years. : 2 Para: 1. Previous pregnancies: Children born at term: 1. Living children: 1. Current : Pre- data: Weight 236 lbs. Height 5 ft 7 ins. BMI 37.0. Medical History: Diabetes Mellitus: Classification: Diabetic Type 1, Dating: Stated EDC: EDC: 04/19/2011 GA by stated EDC: 33w5d Best Overall Assessment: 02/27/2011 EDC: 04/19/2011 Assessed GA: 33w5d The Best Overall Assessment is based on an earlier assessment on 09/13/2010. General Evaluation: heart activity: Present. heart rate: 153 bpm. Presentation: cephalic, Spine right. movement: visible. Amniotic Fluid: Normal. POOL 20.8 cm. Maximal vertical pocket 7.4 cm. Placenta: Anterior. Placenta Grade: Grade 1. Structure: normal. Wellbeing Assessment: Amniotic fluid: Normal. POOL: 20.8 cm. MVP: 7.4 cm. Q1: 7.4 cm. Q2: 4.4 cm. Q3: 1.9 cm. Q4: 7.1 cm. Biophysical Profile: body movements: normal (2), tone: normal (2), breathing movements: normal (2), Amniotic fluid volume: normal (2). Score 8 / 8. Report Summary: Impression: [id number] Biophysical Profile (without NST) This is a rousseau gestation. THIS STUDY IS ON DVD #550. See BPP score above. Recommendations: Follow-up with weekly BPP's. This follow-up has been scheduled. Viet Vann MD [facility] documented in this encounter Visit Diagnoses Not on filedocumented in this encounter Care Teams Installer Molding And Trim Relationship Specialty Start Date End Date Phylicia Brown NP [address] [place] [id number] PCP - General 09/19/10 11/20/13 documented as of this encounter
--- OUTSIDE RECORDS SUMMARY | 2024-04-22 04:29 | XMS_ITS | Encounter Summary ---
Author Organization [facility] Address [address] [place] [address] Care Team Providers Care Per Diem Registered Nurse Name Role Phone Phylicia Brown SACHIN Primary Care Provider Reason for Visit * Reason Comments Routine Visit Pt. reports feeli ng, intermittent ctx, +FM. Pt. denies VB/LOF. Encounter Details Date Type Department Care Team (Late st Contact Info) Description 03/20/2011 14:30 EDT Routine [facility] Obstetrics & Midwifery - [address] [address] Kelsi Chambers MD GA: 35w5d Social History Tobacco Use Types Packs/Day Years Used Date Smoking Tobacco: Former Cigarettes Q uit: 09/26/2003 Comments Yes Sex and Gender Information Value Date Recorded Sex Assigned at Not on file Gender Identity Not on file Sexual Orientation Not on file documented as of this encounter Last Filed Vital Signs Vital Sign Reading Time Taken Comments Blood Pressure 120/76 03/20/2011 1446 EDT Pulse - - Temperature - - Respiratory Rate - - Oxygen Saturation - - Inhaled Oxygen Concentration - - Weight 113 kg (249 lb 3.2 oz) 03/20/2011 1446 ED T Height - - Body Mass Index 39.02 01/09/2011 1200 EDT documented in this encounter Patient Instructions * Patient Instructions* Ashley Rojas - 03/20/2011 14:59 EDT Recent Labs Basename 03/20/11 1454 ??? COLOR ORANGE ??? CLARITYU SLIGHTLY CLOUDY ??? GLUCOSEUAPOC 3+* ??? BILIRUBIN Neg ??? KETONES Trace* ? ? SPECGRAV >=1.030 ??? BLOOD 1+* ??? PHUA 6.0 ??? PROTEINUAPOC Neg ??? UROBILINOGEN 0.2 ??? NITRITE Neg ??? LEUKESTER Neg documented in this encounter Progress Notes * Kelsi Chambers MD - 03/20/2011 1502 EDT 30-35 Weeks Subjective: Kymberly Stewart is a 36 y.o. female at 35w5d here for a visit. #1 IUP Patient reports no complaints Contractions None Movement present #2. Additional problems : see below Objective: See vital table Additional exam: GBS done Assessment: 1. IUP at 35w5d: maternal habitis precludes accurate size measurement 3. Plan: 1. Problem list reviewed and updated. Supervision of high-risk - Kelsi Chambers MD 03/20/11 1459 Signed Need to start Vit K next week . Previous section - Kelsi Chambers MD 03/20/11 1500 Signed Pt scheduled for 03/25 at 11 Diabetes - Kelsi Chambers MD 03/20/11 1500 Signed Following with Endo Has had a few low BS but otherwise doing well. HTN (hypertension) - Kelsi Chambers MD 03/20/11 1501 Signed Stable - no meds 2. Signs and symptoms of labor reviewed 3.. Follow-up in 1 weeks . documented in this encounter Miscellaneous Notes * Assessment & Plan Note - Kelsi Chambers MD - 03/20/2011 1501 EDTAssociated Problem(s): Hypertensive disorder Stable - no meds * Assessment & Plan Note - Kelsi Chambers MD - 03/20/2011 1500 EDTAssociated Problem(s): Diabetes mellitus ([facility]) Following with Endo Has had a few low BS but otherwise doing well. * Assessment & Plan Note - Kelsi Chambers MD - 03/20/2011 1500 EDTAssociated Problem(s): History of section Pt scheduled for 03/25 at 11 * Assessment & Plan Note - Kelsi Chambers MD - 03/20/2011 1459 EDTAssociated Problem(s): Supervision of high-risk Need to start Vit K next week . documented in this encounter Plan of Treatment Upcoming Encounters Date Type Department Care Team (Late st Contact Info) Description 05/17/2024 13:00 EDT Office Visit [facility] Endocrinology - [address] [address] Twyla Mcclellan NP [address] [place] [phone] 08/30/2024 14:00 EST Office Visit [facility] Endocrinology - [address] [address] Twyla Mcclellan NP [address] [place] [phone] documented as of this encounter Procedures Procedure Name Priority Date/Time Associated Diagnosis Comments GROUP B STREP PCR Routine 03/20/2011 15: 34 EDT with other poor obstetric history documented in this encounter Results * GROUP B STREPTOCOCCUS MOLECULAR DETECTION (03/20/2011 15:34 EDT) Group B Streptococcus Molecular Detection GROUP B BETA STREPTOCOCCAL DNA detected by PCR. [facility] Specimen of unknown material (specimen) 03/20/2011 15:34 EDT 03/20/2011 19:18 EDT Kelsi Chambers MD MICROBIOLOGY - GENER AL ORDERABLES Performing Organization Address City/State/[facility] Co de Phone Number [facility] [address] [place] [address] documented in this encounter Visit Diagnoses Diagnosis Previous section Other postprocedural status with other poor obstetric history(V23.49) with other poor obstetric history HTN (hypertension) Unspecified essential hypertension Asthma Unspecified asthma Hypothyroid Unspecified hypothyroidism Diabetes ([facility]) Type II or unspecified type diabetes mellitus without mention of complication, not stated as uncontrolled Status post gastric bypass for obesity Bariatric surgery status Supervision of high-risk Unspecified high-risk documented in this encounter Orders Lab Orders Without Results Count Last Ordered D ate First Ordered Date POCT URINE DIPSTICK 1 03/20/2011 documented in this encounter Care Teams Per Diem Registered Nurse Relationship Specialty Start Date End Date Phylicia Brown NP [address] [place] [id number] PCP - General 09/19/10 11/20/13 documented as of this encounter
--- OUTSIDE RECORDS SUMMARY | 2024-04-22 04:29 | XMS_ITS | Encounter Summary ---
Author Organization [facility] Address [address] [place] [address] Care Team Providers Care Cable Rigger Name Role Phone Ross-SongPhylicia BAND ATTACHER Primary Care Provider Encounter Details Date Type Department Care Team (Late st Contact Info) Description 03/26/2011 Orders Only [facility] Obstetrics & Midwifery - [facility] [address] [place], [place] [address] Ashley Rojas, HARPREET Supervision of high-risk (Primary Dx) Social History Tobacco Use Types Packs/Day Years Used Date Smoking Tobacco: Former Cigarettes Q uit: 09/26/2003 Comments Yes Sex and Gender Information Value Date Recorded Sex Assigned at Not on file Gender Identity Not on file Sexual Orientation Not on file documented as of this encounter Ordered Prescriptions Prescription Sig Dispensed Refills Start Date End Da te phytonadione (VITAMIN K) 10 mg/mL injectionIndications:S upervision of high-risk Inject 1 mL into the skin once a week. To be administered in OB office. 1 Ampule 10 03/26/2011 06/01/2011 documented in this encounter Plan of Treatment Upcoming Encounters Date Type Department Care Team (Late st Contact Info) Description 05/17/2024 13:00 EDT Office Visit [facility] [address] [place], [place] [phone] Twyla Mcclellan NP [address] [facility] [address] [place] [phone] 08/30/2024 14:00 EST Office Visit [facility] Endocrinology - [facility] [address] [place] [address] Twyla Mcclellan NP [address] [facility] [address] [place] [phone] documented as of this encounter Visit Diagnoses Diagnosis Supervision of high-risk - Primary Unspecified high-risk documented in this encounter Care Teams Cable Rigger Relationship Specialty Start Date End Date Phylicia Brown NP [address] [place] [address] PCP - General 09/19/10 11/20/13 documented as of this encounter
--- OUTSIDE RECORDS SUMMARY | 2024-04-22 04:29 | XMS_ITS | Encounter Summary ---
Author Organization [facility] Address [address] [place] [address] Care Team Providers Care Hospital Security Officer Name Role Phone Phylicia Brown OIL PAINT SHADER Primary Care Provider Encounter Details Date Type Department Care Team (Late st Contact Info) Description 03/06/2011 Results Only [facility] [phone] Point, Of Care User [address] [place] [address] Social History Tobacco Use Types Packs/Day Years [...] EDT Office Visit [facility] Endocrinology [address] [address] Twyla Mcclellan NP [address] [place] [phone] 08/30/2024 14:00 EST Office Visit [address] [phone] Twyla Mcclellan NP [address] [place] [phone] documented as of this encounter Procedures Procedure Name Priority Date/Time Associated Diagnosis Comments POCT URINALYSIS Routine 03/06/2011 14:08 EDT documented in this encounter Results * (ABNORMAL) POCT URINALYSIS (03/06/2011 14:08 EDT) Color YELLOW [facility] Clarity, UA Clear [facility] Glucose 3+(A) NEG [facility] Bilirubin Neg NEG [facility] Ketones Neg NEG [facility] Specific [place] 1.020 1.001 - 1.035 [facility] Blood Neg NEG [facility] pH 5.5 4.6 - 8.0 [facility] Protein Neg NEG [facility] Urobilinogen 0.2 0.2 - 1.0 E.U./dl [facility] Nitrite Neg NEG [facility] Leuk Esterase Neg NEG [facility] MIN drawer in plain loom ID DAGO NADYA Test performed at [facility] 03/06/2011 14:0 8 EDT 03/06/2011 14:13 EDT Of Care User Point POINT OF CARE TEST O RDERABLES Performing Organization Address City/State/[facility] Co de Phone Number [facility] [address] [place] [address] documented in this encounter Visit Diagnoses Not on filedocumented in this encounter Care Teams Hospital Security Officer Relationship Specialty Start Date End Date Phylicia Brown NP [address] [place] [address] PCP - General 09/19/10 11/20/13 documented as of this encounter
--- OUTSIDE RECORDS SUMMARY | 2024-04-22 04:29 | XMS_ITS | Encounter Summary ---
Author Organization [facility] Address [address] [place] [address] Care Team Providers Care Insurance Agency Owner Name Role Phone Stephanie Phylicia FURNACE KEEPER Primary Care Provider Encounter Details Date Type Department Care Team (Late st Contact Info) Description 02/13/2011 Results Only Imaging [facility] Obstetrics & Midwifery - [address] [address] Viet Vann MD [address] [facility], [address] [place] [phone] Social History Tobacco Use Types Packs/Day Years [...] Info) Description 05/17/2024 13:00 EDT Office Visit [facility] Endocrinology - [address] [address] Twyla Mcclellan NP [address] [place] [address] [address] [place] [phone] 08/30/2024 14:00 EST Office Visit [facility] Endocrinology - [address] [phone] Twyla Mcclellan, FURNACE KEEPER [address] [facility] [address] [place] [phone] documented as of this encounter Visit Diagnoses Not on filedocumented in this encounter Care Teams Insurance Agency Owner Relationship Specialty Start Date End Date Phylicia Brown NP [address] [place] [phone] PCP - General 09/19/10 11/20/13 documented as of this encounter
--- OUTSIDE RECORDS SUMMARY | 2024-04-22 04:29 | XMS_ITS | Encounter Summary ---
Author Organization [facility] Address [address] [place] [address] Care Team Providers Care Community Health Specialist Name Role Phone Stephanie Phylicia ANODIC TREATER Primary Care Provider Encounter Details Date Type Department Care Team (Late st Contact Info) Description 02/13/2011 Results Only Imaging [facility] Obstetrics & Midwifery - [address] [address] Viet Vann MD [address] [facility], Level 4 [place] [phone] Social History Tobacco Use Types Packs/Day Years [...] Info) Description 05/17/2024 13:00 EDT Office Visit [facility] Endocrinology - [address] [address] Twyla Mcclellan NP [address] [place] [address] [address] [place] [phone] 08/30/2024 14:00 EST Office Visit [facility] Endocrinology - [address] [phone] Twyla Mcclellan, ANODIC TREATER [address] [phone] documented as of this encounter Procedures Procedure Name Priority Date/Time Associated Diagnosis Comments ASSISTED BIOPHYSICAL PROFILE 04/10/2011 13:18 EDT documented in this encounter Results * ASSISTED BIOPHYSICAL PROFILE (04/10/2011 13:18 EDT) Anatomical Region Laterality Modality Other 04/10/2011 13:1 8 EDT 04/10/2011 15:24 EDT Narrative 04/10/2011 15:24 EDT Indication: Maternal disease: Gestational DM A2. Maternal age (36 years). History: Age: 36 years. Maternal age at EDC: 36 years. : 2 Para: 1. Previous pregnancies: Children born at term: 1. Living children: 1. Current : Pre- data: Weight 236 lbs. Height 5 ft 7 ins. BMI 37.0. Obstetric History: Mode of last delivery: Section. Medical History: Diabetes Mellitus: Classification: Diabetic Type 1, Dating: Stated EDC: ??EDC: 04/19/2011 GA by stated EDC: 38w5d Best Overall Assessment: 03/20/2011 EDC: 04/19/2011 Assessed GA: 38w5d The Best Overall Assessment is based on an earlier assessment on 09/13/2010. General Evaluation: heart activity: Present. heart rate: 141 bpm. Presentation: cephalic, Spine posterior. movement: visible. Amniotic Fluid: polyhydramnios. POOL ??29.3 cm. Maximal vertical pocket 8.8 cm. Placenta: Anterior. Placenta Grade: Grade 2. Structure: normal. Wellbeing Assessment: Amniotic fluid: polyhydramnios. POOL: 29.3 cm. MVP: 8.8 cm. Q1: 8.0 cm. Q2: 4.1 cm. Q3: 8.8 cm. Q4: 8.4 cm. Biophysical Profile: body movements: normal (2), tone: normal (2), breathing movements: normal (2), Amniotic fluid volume: normal (2). Score 8 / 8. Report Summary: Impression: [id number] Biophysical Profile (without NST) This is a rousseau gestation. The amniotic fluid measures above the 97% on Mcclure's Chart, this is unchanged from previous scan. THIS STUDY IS ON DVD # 504 O 412 See BPP score above. Recommendations: Follow-up with weekly BPP's. This follow-up has been scheduled. Growth Overview: Date GA BPD [mm] HC [mm] AC [mm] FL [mm] HUM [mm] EFW GP 09/26/2010 10 + 5 ... ... ... ... ... ... ... 11/28/2010 19 + 5 42.6 18th 168.3 31st 135.5 21st 30.7 35th 29.3 48th 263g , 0 lbs 9 ozs 11th%% 01/30/2011 28 + 5 74.7 77th 282.0 82nd 254.3 68th 52.6 17th 48.2 34th 1359g , 3 lbs 0 ozs 56th%% 02/27/2011 32 + 5 86.9 95th 292.5 8th 307.2 93rd 66.2 75th 56.2 56th 2394g , 5 lbs 4 ozs 85th%% 03/06/2011 33 + 5 ... ... ... ... ... ... ... 03/12/2011 34 + 4 ... ... ... ... ... ... ... 03/20/2011 35 + 5 ... ... ... ... ... ... ... 03/27/2011 36 + 5 93.7 92nd 337.2 70th 362.9 >95th 71.7 48th 61.4 46th 3671g , 8 lbs 1 ozs >95th%% 04/03/2011 37 + 5 ... ... ... ... ... ... ... 04/10/2011 38 + 5 ... ... ... ... ... ... ... Procedure Note 04/10/2011 Indication: Maternal disease: Gestational DM A2. Maternal age (36 years). History: Age: 36 years. Maternal age at EDC: 36 years. : 2 Para: 1. Previous pregnancies: Children born at term: 1. Living children: 1. Current : Pre- data: Weight 236 lbs. Height 5 ft 7 ins. BMI 37.0. Obstetric History: Mode of last delivery: Section. Medical History: Diabetes Mellitus: Classification: Diabetic Type 1, Dating: Stated EDC: EDC: 04/19/2011 GA by stated EDC: 38w5d Best Overall Assessment: 03/20/2011 EDC: 04/19/2011 Assessed GA: 38w5d The Best Overall Assessment is based on an earlier assessment on 09/13/2010. General Evaluation: heart activity: Present. heart rate: 141 bpm. Presentation: cephalic, Spine posterior. movement: visible. Amniotic Fluid: polyhydramnios. POOL 29.3 cm. Maximal vertical pocket 8.8 cm. Placenta: Anterior. Placenta Grade: Grade 2. Structure: normal. Wellbeing Assessment: Amniotic fluid: polyhydramnios. POOL: 29.3 cm. MVP: 8.8 cm. Q1: 8.0 cm. Q2: 4.1 cm. Q3: 8.8 cm. Q4: 8.4 cm. Biophysical Profile: body movements: normal (2), tone: normal (2), breathing movements: normal (2), Amniotic fluid volume: normal (2). Score / 8. Report Summary: Impression: [id number] Biophysical Profile (without NST) This is a rousseau gestation. The amniotic fluid measures above the 97% on Mcclure's Chart, this is unchanged from previous scan. THIS STUDY IS ON DVD # 182 T 412 See BPP score above. Recommendations: Follow-up with weekly BPP's. This follow-up has been scheduled. Growth Overview: Date GA BPD [mm] HC [mm] AC [mm] FL [mm] HUM [mm] EFW GP 09/26/2010 10 + 5 ... ... ... ... ... ... ... 11/28/2010 19 + 5 42.6 18th 168.3 31st 135.5 21st 30.7 35th 29.3 48th 263g , 0 lbs 9 ozs 11th%% 01/30/2011 28 + 5 74.7 77th 282.0 82nd 254.3 68th 52.6 17th 48.2 34th 1359g , 3 lbs 0 ozs 56th%% 02/27/2011 32 + 5 86.9 95th 292.5 8th 307.2 93rd 66.2 75th 56.2 56th 2394g , 5 lbs 4 ozs 85th%% 03/06/2011 33 + 5 ... ... ... ... ... ... ... 03/12/2011 34 + 4 ... ... ... ... ... ... ... 03/20/2011 35 + 5 ... ... ... ... ... ... ... 03/27/2011 36 + 5 93.7 92nd 337.2 70th 362.9 >95th 71.7 48th 61.4 46th 3671g , 8 lbs 1 ozs >95th%% 04/03/2011 37 + 5 ... ... ... ... ... ... ... 04/10/2011 38 + 5 ... ... ... ... ... ... ... Viet Vann MD [facility] documented in this encounter Visit Diagnoses Not on filedocumented in this encounter Care Teams Community Health Specialist Relationship Specialty Start Date End Date Phylicia Brown NP [address] [place] [address] PCP - General 09/19/10 11/20/13 documented as of this encounter
--- OUTSIDE RECORDS SUMMARY | 2024-04-22 04:29 | XMS_ITS | Encounter Summary ---
Author Organization [facility] Address [address] [place] [address] Care Team Providers Care Charge Account Clerk Name Role Phone Phylicia Brown ALTERATION MANAGER Primary Care Provider Reason for Visit * Reason Comments Non-stress Test type 2 DM Encounter Details Date Type Department Care Team (Late st Contact Info) Description 03/06/2011 13:00 EDT Nurse Only [facility] Obstetrics & Midwifery - [address] [address] Unknown, Provider, NursePanchito Diabetes ([facility]) ([facility]) Social History Tobacco Use Types Packs/Day Years Used Date Smoking Tobacco: Former Cigarettes Q uit: 09/26/2003 Comments Yes Sex and Gender Information Value Date Recorded Sex Assigned at Not on file Gender Identity Not on file Sexual Orientation Not on file documented as of this encounter Progress Notes * Susi Powell MD - 03/06/2011 1606 EDT NST Report Baseline Heart Rate: 140 Accelerations: present Movement: present Decelerations: absent Contractions: absent Interpretation: reactive uSsi Powell MD 03/06/2011 16:06 documented in this encounter Miscellaneous Notes * Scanned Note-Null - Marc Supervisor Hanging And Trimming - 03/13/2011 0912 EDT documented in this encounter Plan of Treatment Upcoming Encounters Date Type Department Care Team (Late st Contact Info) Description 05/17/2024 13:00 EDT Office Visit [facility] Endocrinology - [address] [phone] Twyla Mcclellan NP [address] [place] [phone] 08/30/2024 14:00 EST Office Visit [facility] Endocrinology - [address] [address] Twyla Mcclellan NP [address] [place] [phone] documented as of this encounter Visit Diagnoses Diagnosis Diabetes ([facility]) Type II or unspecified type diabetes mellitus without mention of complication, not stated as uncontrolled documented in this encounter Care Teams Charge Account Clerk Relationship Specialty Start Date End Date Phylicia Brown NP [address] [place] [address] PCP - General 09/19/10 11/20/13 documented as of this encounter
--- OUTSIDE RECORDS SUMMARY | 2024-04-22 04:29 | XMS_ITS | Encounter Summary ---
Author Organization [facility] Address [address] [place] [address] Care Team Providers Care Stockbroker Name Role Phone Stephanie Phylicia BALANCE CLERK Primary Care Provider Encounter Details Date Type Department Care Team (Late st Contact Info) Description 02/13/2011 Results Only Imaging [facility] Obstetrics & Midwifery - [address] [address] Viet Vann MD 111 [facility], Level 4 [place] [phone] Social History Tobacco Use Types Packs/Day Years [...] Visit [facility] Endocrinology - [address] [address] Twyla Mcclellan NP [address] [place] [address] [address] [place] [phone] 08/30/2024 14:00 EST Office Visit [facility] Endocrinology - [address] [phone] Twyla Mcclellan, BALANCE CLERK [address] [phone] documented as of this encounter Procedures Procedure Name Priority Date/Time Associated Diagnosis Comments HALF-WAY BIOPHYSICAL PROFILE 04/03/2011 14:53 EDT documented in this encounter Results * HALF-WAY BIOPHYSICAL PROFILE (04/03/2011 14:53 EDT) Anatomical Region Laterality Modality Other 04/03/2011 14:5 3 EDT 04/03/2011 15:31 EDT Narrative 04/03/2011 15:31 EDT Indication: Maternal disease: Diabetes, pregestational type 2. Maternal age (36 years). History: Age: 36 [...] EDC: ??EDC: 04/19/2011 GA by stated EDC: 37w5d Best Overall Assessment: 03/20/2011 EDC: 04/19/2011 Assessed GA: 37w5d The Best Overall Assessment is based on an earlier assessment on 09/13/2010. General Evaluation: heart activity: Present. heart rate: 155 bpm. Presentation: cephalic, Spine left. movement: visible. Amniotic Fluid: polyhydramnios. POOL ??32.5 cm. Maximal vertical pocket 9.7 cm. Placenta: Anterior. Placenta Grade: Grade 2. Structure: normal. Wellbeing Assessment: Amniotic fluid: polyhydramnios. POOL: 32.5 cm. MVP: 9.7 cm. Q1: 6.7 cm. Q2: 7.7 cm. Q3: 8.4 cm. Q4: 9.7 cm. Biophysical Profile: body movements: normal (2), tone: normal (2), breathing movements: abnormal (0), Amniotic fluid volume: normal (2). Score 6 / 8. Report Summary: Impression: [id number] Biophysical Profile (without NST) This is a rousseau gestation. THIS STUDY IS ON DVD #409. See BPP score above. Recommendations: Follow-up with [...] ... ... ... ... ... Procedure Note 04/03/2011 Indication: Maternal disease: Diabetes, pregestational type 2. Maternal age (36 years). History: Age: 36 [...] EDC: EDC: 04/19/2011 GA by stated EDC: 37w5d Best Overall Assessment: 03/20/2011 EDC: 04/19/2011 Assessed GA: 37w5d The Best Overall Assessment is based on an earlier assessment on 09/13/2010. General Evaluation: heart activity: Present. heart rate: 155 bpm. Presentation: cephalic, Spine left. movement: visible. Amniotic Fluid: polyhydramnios. POOL 32.5 cm. Maximal vertical pocket 9.7 cm. Placenta: Anterior. Placenta Grade: Grade 2. Structure: normal. Wellbeing Assessment: Amniotic fluid: polyhydramnios. POOL: 32.5 cm. MVP: 9.7 cm. Q1: 6.7 cm. Q2: 7.7 cm. Q3: 8.4 cm. Q4: 9.7 cm. Biophysical Profile: body movements: normal (2), tone: normal (2), breathing movements: abnormal (0), Amniotic fluid volume: normal (2). Score 6 / 8. Report Summary: Impression: [id number] Biophysical Profile (without NST) This is a rousseau gestation. THIS STUDY IS ON DVD #409. See BPP score above. Recommendations: Follow-up with [...] ... ... ... ... Viet Vann MD [facility] ORDER MAXWELL documented in this encounter Visit Diagnoses Not on filedocumented in this encounter Care Teams Stockbroker Relationship Specialty Start Date End Date Phylicia Brown NP [address] [place] [phone] PCP - General 09/19/10 11/20/13 documented as of this encounter
--- OUTSIDE RECORDS SUMMARY | 2024-04-22 04:29 | XMS_ITS | Encounter Summary ---
Author Organization [facility] Address [address] [place] [address] Care Team Providers Care Senior Lead Java Developer Name Role Phone RossAbhilash Carrizalesothy CASING TESTER Primary Care Provider Reason for Visit * Reason Onset Date Comments Labs Only 12/24/2010 Vitamin K Encounter Details Date Type Department Care Team (Late st Contact Info) Description 12/24/2010 Orders Only [facility] Obstetrics & Midwifery - [facility] [address] [place], [place] [phone] Billie Peres, RN Gastric bypass for obesity complicating , , puerperium; Other specified complication, antepartum Social History Tobacco Use Types Packs/Day Years Used Date Smoking Tobacco: Former Cigarettes Q uit: 09/26/2003 Comments Yes Sex and Gender Information Value Date Recorded Sex Assigned at Not on file Gender Identity Not on file Sexual Orientation Not on file documented as of this encounter Progress Notes * Billei Peres, RN - 12/24/2010 1041 EDT Order placed for vitamin K level per [facility] chart review today. documented in this encounter Plan of Treatment Upcoming Encounters Date Type Department Care Team (Late st Contact Info) Description 05/17/2024 13:00 EDT Office Visit [facility] Endocrinology - [facility] [address] [place], [place] [phone] Twyla Mcclellan NP 62 [facility] [address] [place] [phone] 08/30/2024 14:00 EST Office Visit [facility] Endocrinology - [facility] [address] [place], [place] [phone] Twyla Mcclellan NP 62 [facility] [address] [place] [phone] documented as of this encounter Visit Diagnoses Diagnosis Gastric bypass for obesity complicating , , puerperium Bariatric surgery status complicating , childbirth, or the puerperium, unspecified as to episode of care or not applicable Other specified complication, antepartum(646.83) Other specified complication, antepartum documented in this encounter Care Teams Senior Lead Java Developer Relationship Specialty Start Date End Date Phylicia Brown NP [address] [place] [address] PCP - General 09/19/10 11/20/13 documented as of this encounter
--- OUTSIDE RECORDS SUMMARY | 2024-04-22 04:29 | XMS_ITS | Encounter Summary ---
Author Organization [facility] Address [address] [place] [address] Care Team Providers Care Chemistry Research Assistant Name Role Phone Phylicia Brown ORACLE APPLICATION ARCHITECT Primary Care Provider Encounter Details Date Type Department Care Team (Late st Contact Info) Description 01/30/2011 Results Only [facility] [phone] Point, Of Care User [address] [place] [address] Social History Tobacco Use Types Packs/Day Years [...] 13:00 EDT Office Visit [facility] Endocrinology [address] [address] Twyla Mcclellan NP [address] [place] [phone] 08/30/2024 14:00 EST Office Visit [address] [phone] Twyla Mcclellan NP [address] [place] [phone] documented as of this encounter Procedures Procedure Name Priority Date/Time Associated Diagnosis Comments POCT URINALYSIS Routine 01/30/2011 16:49 EDT documented in this encounter Results * (ABNORMAL) POCT URINALYSIS (01/30/2011 16:49 EDT) Color YELLOW [facility] Clarity, UA Clear [facility] Glucose 3+(A) NEG [facility] Bilirubin Neg NEG [facility] Ketones Trace(A) NEG [facility] Specific [place] 1.020 1.001 - 1.035 [facility] Blood Neg NEG [facility] pH 6.0 4.6 - 8.0 [facility] Protein Neg NEG [facility] Urobilinogen 0.2 0.2 - 1.0 E.U./dl [facility] Nitrite Neg NEG [facility] Leuk Esterase Neg NEG NICO ER MIN solutions sales executive ID [id number] Test performed at [facility] 01/30/2011 16:4 9 EDT 01/30/2011 16:50 EDT Of Care User Point POINT OF CARE TEST O RDERABLES [facility] [address] [place] [address] documented in this encounter Visit Diagnoses Not on filedocumented in this encounter Care Teams Chemistry Research Assistant Relationship Specialty Start Date End Date Phylicia Brown NP [address] [place] [id number] PCP - General 09/19/10 11/20/13 documented as of this encounter
--- OUTSIDE RECORDS SUMMARY | 2024-04-22 04:29 | XMS_ITS | Encounter Summary ---
Author Organization [facility] Address [address] [place] [address] Care Team Providers Care Comedian Name Role Phone CodyAllPhylicia SACHIN Primary Care Provider Encounter Details Date Type Department Care Team (Latest Contact Info) Description 03/03/2011 Documentation Visit [facility] Obstetrics & Midwifery - [address] [phone] Billie Peres RN Previous section; HTN (hypertension); Asthma; Hypothyroid; Diabetes (CMS-HCC) (HCC-CMS); Status post gastric bypass for obesity; with other poor obstetric history Social History Tobacco Use Types Packs/Day Years Used Date Smoking Tobacco: Former Cigarettes Q uit: 09/26/2003 Comments Yes Sex and Gender Information Value Date Recorded Sex Assigned at Not on file Gender Identity Not on file Sexual Orientation Not on file documented as of this encounter Progress Notes * Billie Peres, RN - 03/03/2011 1604 EDT C/section booked for 04-14-11 at 11:[address] John. Will be 39 weeks on Wednesday04-12-11, both slots booked on Wednesday04-13-11, as well as 8:30 slot on Wednesday. documented in this encounter Plan of Treatment Upcoming Encounters Date Type Department Care Team (Late st Contact Info) Description 05/17/2024 13:00 EDT Office Visit [facility] Endocrinology - [facility] [address] [place], [place] [phone] Twyla Mcclellan NP 62 [facility] [address] [place] [phone] 08/30/2024 14:00 EST Office Visit [facility] Endocrinology - [facility] [address] [place] [address] Twyla Mcclellan NP [address] [phone] documented as of this encounter Visit Diagnoses Diagnosis Previous section Other postprocedural status HTN (hypertension) Unspecified essential hypertension Asthma Unspecified asthma Hypothyroid Unspecified hypothyroidism Diabetes ([facility]) Type II or unspecified type diabetes mellitus without mention of complication, not stated as uncontrolled Status post gastric bypass for obesity Bariatric surgery status with other poor obstetric history(V23.49) with other poor obstetric history documented in this encounter Care Teams Comedian Relationship Specialty Start Date End Date Phylicia Brown NP [address] [place] [address] PCP - General 09/19/10 11/20/13 documented as of this encounter
--- OUTSIDE RECORDS SUMMARY | 2024-04-22 04:29 | XMS_ITS | Encounter Summary ---
Author Organization [facility] Address [address] [place] [address] Care Team Providers Care Corporate Legal Intern Name Role Phone Phylicia Brown MANUFACTURING CONTROLS ENGINEER Primary Care Provider Encounter Details Date Type Department Care Team (Late st Contact Info) Description 03/12/2011 Results Only [facility] [phone] Point, Of Care User [address] [place] [address] Social History Tobacco Use Types Packs/Day Years [...] Info) Description 05/17/2024 13:00 EDT Office Visit [facility] Endocrinology [address] [address] Twyla Mcclellan NP [address] [place] [phone] 08/30/2024 14:00 EST Office Visit [address] [phone] Twyla Mcclellan NP [address] [place] [phone] documented as of this encounter Procedures Procedure Name Priority Date/Time Associated Diagnosis Comments POCT URINALYSIS Routine 03/12/2011 15:45 EDT documented in this encounter Results * (ABNORMAL) POCT URINALYSIS (03/12/2011 15:45 EDT) Color YELLOW [facility] Clarity, UA Clear [facility] Glucose 3+(A) NEG [facility] Bilirubin Neg NEG [facility] Ketones Neg NEG [facility] Specific [place] <=1.005 1.001 - 1.035 [facility] Blood Neg NEG [facility] pH 5.5 4.6 - 8.0 [facility] Protein Neg NEG [facility] Urobilinogen 0.2 0.2 - 1.0 E.U./dl [facility] Nitrite Neg NEG [facility] Leuk Esterase Neg NEG FLETCH ER MIN skin diver ID [id number] Test performed at [facility] 03/12/2011 15:4 5 EDT 03/12/2011 15:50 EDT Of Care User Point POINT OF CARE TEST O RDERABLES [facility] [address] [place] [address] documented in this encounter Visit Diagnoses Not on filedocumented in this encounter Care Teams Corporate Legal Intern Relationship Specialty Start Date End Date Phylicia Brown NP [address] [place] [phone] PCP - General 09/19/10 11/20/13 documented as of this encounter
--- OUTSIDE RECORDS SUMMARY | 2024-04-22 04:29 | XMS_ITS | Encounter Summary ---
Author Organization [facility] Address [address] [place] [address] Care Team Providers Care Greeting Card Maker Name Role Phone Phylicia Brown CERTIFIED EXECUTIVE CHEF Primary Care Provider Reason for Visit * Reason Comments Non-stress Test type 2 dm Encounter Details Date Type Department Care Team (Late st Contact Info) Description 03/12/2011 14:30 EDT Nurse Only [facility] Obstetrics & Midwifery - [address] [address] Unknown, ProviderMD Viet Vann MD [address] [place] [address], [address] [place] [phone] Nurse, [facility] Social History Tobacco Use Types Packs/Day Years Used Date Smoking Tobacco: Former Cigarettes Q uit: 09/26/2003 Comments Yes Sex and Gender Information Value Date Recorded Sex Assigned at Not on file Gender Identity Not on file Sexual Orientation Not on file documented as of this encounter Progress Notes * Viet Vann MD - 03/12/2011 9278 EDT NST Report Baseline Heart Rate: 150 Accelerations: present Movement: present Decelerations: absent Contractions: absent Interpretation: reactive Viet Vann MD 03/12/2011 15:18 documented in this encounter Miscellaneous Notes * Scanned Note-Null - Marc, Industrial Technician - 03/13/2011 0912 EDT documented in this encounter Plan of Treatment Upcoming Encounters Date Type Department Care Team (Late st Contact Info) Description 05/17/2024 13:00 EDT Office Visit [facility] Endocrinology - [address] [address] Twyla Mcclellan NP [address] [place] [phone] 08/30/2024 14:00 EST Office Visit [address] [phone] Twyla Mcclellan NP [address] [place] [phone] documented as of this encounter Visit Diagnoses Not on filedocumented in this encounter Care Teams Greeting Card Maker Relationship Specialty Start Date End Date Phylicia Brown NP [address] [place] [address] PCP - General 09/19/10 11/20/13 documented as of this encounter
--- OUTSIDE RECORDS SUMMARY | 2024-04-22 04:29 | XMS_ITS | Encounter Summary ---
Author Organization [facility] Address [address] [place] [address] Care Team Providers Care Pump Technician Name Role Phone Phylicia Brown SACHIN Primary Care Provider Reason for Visit * Reason Comments Routine Visit Encounter Details Date Type Department Care Team (Late st Contact Info) Description 11/28/2010 15:15 EST Routine [facility] Obstetrics & Midwifery - [address] [address] Kelsi Chambers MD GA: 19w5d Social History Tobacco Use Types Packs/Day Years Used Date Smoking Tobacco: Former Cigarettes Q uit: 09/26/2003 Comments Yes Sex and Gender Information Value Date Recorded Sex Assigned at Not on file Gender Identity Not on file Sexual Orientation Not on file documented as of this encounter Last Filed Vital Signs Vital Sign Reading Time Taken Comments Blood Pressure 122/70 11/28/2010 1453 EST Pulse - - Temperature - - Respiratory Rate - - Oxygen Saturation - - Inhaled Oxygen Concentration - - Weight 102 kg (224 lb 12.8 oz) 11/28/[address] Height - - Body Mass Index 34.69 11/13/2010 0927 EST documented in this encounter Ordered Prescriptions Prescription Sig Dispensed Refills Start Date End Da te citalopram (CELEXA) 20 mg tablet Take 1 Tab by mouth daily. 30 Tab 2 11/28/2010 documented in this encounter Progress Notes * Lorelei Kitchen MD - 11/28/2010 1513 EST [facility] Fellow S: No complaints. Feeling well. Had normal detailed US today. Has kept visits with endocrine,her OBGYN SPECIALIST, and Bariatric surgery in October. Ratio 1:10 carb with meals Pump 12 1 unit, 8 am .60, 6 pm 1 unit O: Filed Vitals: 11/28/2010 1453 BP: 122/70 Weight: 101.969 kg (224 lb 12.8 oz) FHR see US Kymberly garcia 35 y.o. @ [id number] Diabetes - Lorelei Kitchen MD 11/28/10 1520 Signed Excellent glycemic control. Current settings per subjective. Continues to follow with her OBGYN SPECIALIST, endocrine. echo scheduled. Hypothyroid - Lorelei Kitchen MD 11/28/10 152 Signed Check TSH q trimester, last screen was 10/17 (all labs at [facility]) Continue Synthroid 25 mcg daily HTN (hypertension) - Lorelei Kitchen MD 11/28/10 152 Signed Normotensive today. Previous section - Lorelei Kitchen MD 11/28/10 152 Signed Planning repeat CS/BTL. Need to sign papers following 20 wk GA. Status Post Gastric Bypass for Obesity - Lorelei Kitchen MD 11/28/10 152 Signed VIsit with [place] [facility] in Oct, next labs in 3 months. Thiamine decreased to QOD. RTC 3 weeks Lorelei Kitchen MD [facility] ATTENDING I discussed the patient with the fellow at the time of the visit. I agree with the findings and theplan of care documented in the fellow's note. Kelsi Chambers M.D. documented in this encounter Miscellaneous Notes * Assessment & Plan Note - Lorelei Kitchen MD - 11/28/2010 152 ESTAssociated Problem(s): Status post gastric bypass for obesity VIsit with Alma Mendez in Oct, next labs in 3 months. Thiamine decreased to QOD. * Assessment & Plan Note - Lorelei Kitchen MD - 11/28/2010 152 ESTAssociated Problem(s): History of section Planning repeat CS/BTL. Need to sign papers following 20 wk GA. * Assessment & Plan Note - Lorelei Kitchen MD - 11/28/2010 1522 ESTAssociated Problem(s): Hypertensive disorder Normotensive today. * Assessment & Plan Note - Lorelei Kitchen MD - 11/28/2010 1522 ESTAssociated Problem(s): Hypothyroidism Check TSH q trimester, last screen was 10/17 (all labs at [facility]) Continue Synthroid 25 mcg daily * Assessment & Plan Note - Lorelei Kitchen MD - 11/28/2010 1520 ESTAssociated Problem(s): Diabetes mellitus ([facility]) Excellent glycemic control. Current settings per subjective. Continues to follow with her OBGYN SPECIALIST, endocrine. echo scheduled. documented in this encounter Plan of Treatment Upcoming Encounters Date Type Department Care Team (Late st Contact Info) Description 05/17/2024 13:00 EDT Office Visit [facility] Endocrinology - [address] [address] Twyla Mcclellan NP [address] [place] [phone] 08/30/2024 14:00 EST Office Visit [facility] Endocrinology [address] [address] Twyla Mcclellan NP [address] [place] [phone] documented as of this encounter Visit Diagnoses Diagnosis Previous section Other postprocedural status HTN (hypertension) Unspecified essential hypertension Asthma Unspecified asthma Hypothyroid Unspecified hypothyroidism Diabetes ([facility]) Type II or unspecified type diabetes mellitus without mention of complication, not stated as uncontrolled Status post gastric bypass for obesity Bariatric surgery status with other poor obstetric history(V23.49) with other poor obstetric history documented in this encounter Care Teams Pump Technician Relationship Specialty Start Date End Date Phylicia Brown NP [address] [place] [address] PCP - General 09/19/10 11/20/13 documented as of this encounter
--- OUTSIDE RECORDS SUMMARY | 2024-04-22 04:29 | XMS_ITS | Encounter Summary ---
Author Organization [facility] Address [address] [place] [address] Care Team Providers Care Horticulture Professor Name Role Phone Phylicia Brown BLOCKING MACHINE OPERATOR Primary Care Provider Reason for Visit * Reason Comments Non-stress Test Type II DM Encounter Details Date Type Department Care Team (Late st Contact Info) Description 03/20/2011 13:00 EDT Nurse Only [facility] Obstetrics & Midwifery - [address] [address] Unknown, Provider, Nurse, Panchito Previous section; with [...] Progress Notes * Viet Vann MD - 03/20/2011 7189 EDT NST Report Baseline Heart Rate: 150 Accelerations: present Movement: present Decelerations: absent Contractions: absent Interpretation: Reactive Viet Vann MD 03/20/2011 14:55 documented in this encounter Miscellaneous Notes * Scanned Note-Null - Marc, Price Accuracy Supervisor - 03/24/2011 0908 EDT documented in this encounter Plan of Treatment Upcoming Encounters Date Type Department Care Team (Late st Contact Info) Description 05/17/2024 13:00 EDT Office Visit [facility] Endocrinology - [address] [address] Twyla Mcclellan NP [address] [place] [phone] 08/30/2024 14:00 EST Office Visit [address] [address] Twyla Mcclellan NP [address] [place] [phone] documented as of this encounter Visit Diagnoses Diagnosis Previous section Other postprocedural status with other poor obstetric history(V23.49) with other poor obstetric history HTN (hypertension) Unspecified essential hypertension Asthma Unspecified asthma Hypothyroid Unspecified hypothyroidism Diabetes ([facility]) Type II or unspecified type diabetes mellitus without mention of complication, not stated as uncontrolled Status post gastric bypass for obesity Bariatric surgery status Supervision of high-risk Unspecified high-risk documented in this encounter Care Teams Horticulture Professor Relationship Specialty Start Date End Date Phylicia Brown NP [address] [place] [address] PCP - General 09/19/10 11/20/13 documented as of this encounter
--- OUTSIDE RECORDS SUMMARY | 2024-04-22 04:29 | XMS_ITS | Encounter Summary ---
Author Organization [facility] Address [address] [place] [address] Care Team Providers Care Machinery Repair Maintenance Supervisor Name Role Phone Phylicia Brown SURVEILLANCE OPERATOR Primary Care Provider Encounter Details Date Type Department Care Team (Latest Contact Info) Description 10/22/2010 Documentation Visit [facility] Obstetrics & Midwifery - [facility] [address] [place], [place] [phone] Ashley Rojas RN Previous section; HTN (hypertension); Asthma; Hypothyroid; [...] as of this encounter Progress Notes * Ashley Rojas - 10/22/2010 1440 EST External labs entered into console. Lab results also scanned . documented in this encounter Plan of Treatment Upcoming Encounters Date Type Department Care Team (Late st Contact Info) Description 05/17/2024 13:00 EDT Office Visit [facility] Endocrinology - [facility] [address] [place] [address] Twyla Mcclellan NP [address] [facility] [address] [place] [phone] 08/30/2024 14:00 EST Office Visit [facility] Endocrinology - [facility] [address] [facility] [address] [place], [place] [phone] wTyla Mcclellan NP [address] [facility] [address] [place] [phone] documented as of this encounter Procedures Procedure Name Priority Date/Time Associated Diagnosis Comments HEPATITIS B SURFACE ANTIGEN Routine 10/13/2010 HIV 1/2 ANTIGEN AND ANTIBODY, 4TH GENERATION Routine 10/13/2010 RUBELLA IGG ANTIBODY Routine 09/21/2010 documented in this encounter Results * HIV ANTIBODY (10/13/2010) Hiv Ab, External POINT OF CARE HIV 1/2 Antibody negative POINT OF CARE Blood specimen (specimen) Historical Provider IMMUNOLOGY AND SE ROLOGY ORDERABLES POINT OF CARE * HEPATITIS B SURFACE ANTIGEN (10/13/2010) Hepatitis B Surface Ag, External POINT OF CARE Hepatitis B Surface Ag negative POINT OF CARE Blood specimen (specimen) Historical Provider CHEMISTRY & BLOOD GAS ORDERABLES POINT OF CARE * RUBELLA IGG ANTIBODY (09/21/2010) Rubella IgG Ab, External POINT OF CARE Rubella IgG Ab pos POINT OF CARE Blood specimen (specimen) Historical Provider CHEMISTRY & BLOOD GAS ORDERABLES POINT OF CARE documented in this encounter Visit Diagnoses Diagnosis Previous section Other postprocedural status HTN (hypertension) Unspecified essential hypertension Asthma Unspecified asthma Hypothyroid Unspecified hypothyroidism Diabetes ([facility]) Type II or unspecified type diabetes mellitus without mention of complication, not stated as uncontrolled Status post gastric bypass for obesity Bariatric surgery status with other poor obstetric history(V23.49) with other poor obstetric history documented in this encounter Care Teams Machinery Repair Maintenance Supervisor Relationship Specialty Start Date End Date Phylicia Brown NP [address] [place] [address] PCP - General 09/19/10 11/20/13 documented as of this encounter
--- OUTSIDE RECORDS SUMMARY | 2024-04-22 04:29 | XMS_ITS | Encounter Summary ---
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) Social History Tobacco Use Types [...] Description 05/17/2024 13:00 EDT Office Visit [facility] Endocrinology - [address] [phone] Twyla Mcclellan NP [address] [place] [phone] 08/30/2024 14:00 EST Office Visit [facility] Endocrinology [address] [phone] Twyla Mcclellan NP [address] [place] [phone] documented as of this encounter Visit Diagnoses Diagnosis 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
--- OUTSIDE RECORDS SUMMARY | 2024-04-22 04:29 | XMS_ITS | Encounter Summary ---
Author Organization [facility] Address [address] [place] [address] Care Team Providers Care Crusher Wet Ground Mica Name Role Phone Stephanie Phylicia RIVET HOLE MACHINE OPERATOR Primary Care Provider Encounter Details Date Type Department Care Team (Late st Contact Info) Description 02/13/2011 Results Only Imaging [facility] Obstetrics & Midwifery - [address] [address] Viet Vann MD [address] [facility], [address] [place] [phone] Social History Tobacco Use Types Packs/Day Years [...] Office Visit [facility] Endocrinology - [address] [address] Twyla Mcclellan NP [address] [place] [address] [address] [place] [phone] 08/30/2024 14:00 EST Office Visit [facility] Endocrinology - [address] [phone] Twyla Mcclellan, RIVET HOLE MACHINE OPERATOR [address] [facility] [address] [place] [phone] documented as of this encounter Procedures Procedure Name Priority Date/Time Associated Diagnosis Comments [facility] FOLLOW-UP 03/27/2011 15:14 EDT documented in this encounter Results * [facility] FOLLOW-UP (03/27/2011 15:14 EDT) Anatomical Region Laterality Modality Other 03/27/2011 15:1 4 EDT 03/27/2011 17:04 EDT Narrative 03/27/2011 17:04 EDT Indication: Maternal disease: Diabetes, pregestational type [...] EDC: ??EDC: 04/19/2011 GA by stated EDC: 36w5d Best Overall Assessment: 03/20/2011 EDC: 04/19/2011 Assessed GA: 36w5d The Best Overall Assessment is based on an earlier assessment on 09/13/2010. General Evaluation: heart activity: Present. heart rate: 139 bpm. Presentation: cephalic, Spine anterior. movement: present. Amniotic Fluid: polyhydramnios. POOL ??31.7 cm. Placenta: Anterior. Placenta Grade: Grade 1. Structure: normal. Anatomy Scan: Rousseau gestation. Biometry: BPD 93.7 mm 92nd% 38w1d (37w1d to 39w1d) HC 337.2 mm 70th% 38w5d (36w0d to 41w3d) AC 362.9 mm >95th% 40w1d (39w1d to 41w2d) FL 71.7 mm 48th% 36w5d (33w4d to 39w6d) OFD 117.5 mm 68th% HUM 61.4 mm 46th% 36w3d VENTRp 11.0 mm n/a HC/AC Ratio 0.929 ??9th% FL/AC Ratio 0.198 ??n/a BPD/FL Ratio 1.307 ??27th% HC/FL Ratio 4.703 ??45th% BPD/OFD Ratio 0.797 ??29th% EFW (lbs/oz) 8 lbs 1 ozs EFW (g) 3671 g ??>95th% Anatomy: Head: head shape appears normal. Heart: 4-chamber seen. Gastrointestinal Tract: Stomach appears normal. Kidneys / Adrenal Glands: Bilateral kidneys appear normal. Bladder: bladder appears normal in size and shape. Abnormal Structures: brain. Brain: Visualized and normal appearance: brain parenchyma, choroid plexus, midline falx, cavum septi pellucidi. Cerebral ventricles: abnormal. Ventriculomegaly. Wellbeing Assessment: Amniotic fluid: polyhydramnios. POOL: 31.7 cm. Non Stress Test: reactive. Biophysical Profile: body movements: normal (2), tone: normal (2), breathing movements: normal (2), Amniotic fluid volume: normal (2), Non-stress test: Reactive (2). Score 10 / 10. Report Summary: Impression: [id number] Follow-up obstetrical ultrasound This is a rousseau gestation. biometry is consistent with prior dating. The EFW is above 90% on the [place] hybrid curve. The cerebral ventricles are prominent measuring 1.0 cm. Except where noted above, the anatomy was not reviewed in detail as this is a follow-up study and the anatomy was previously assessed. Amniotic fluid is increased and movement are noted. [id number] Biophysical Profile (including NST) This is a rousseau gestation. THIS STUDY IS ON DVD #406. See BPP score above. Recommendations: Follow-up cerebral ventricle measurement with weekly BPP's. ??Notify peds re: lateral ventricles so they can follow-up postnatally as indicated. This follow-up has been scheduled. Growth Overview: [...] 3671g , 8 lbs 1 ozs >95th%% Procedure Note 03/27/2011 Indication: Maternal disease: Diabetes, pregestational type 2. [...] EDC: EDC: 04/19/2011 GA by stated EDC: 36w5d Best Overall Assessment: 03/20/2011 EDC: 04/19/2011 Assessed GA: 36w5d The Best Overall Assessment is based on an earlier assessment on 09/13/2010. General Evaluation: heart activity: Present. heart rate: 139 bpm. Presentation: cephalic, Spine anterior. movement: present. Amniotic Fluid: polyhydramnios. POOL 31.7 cm. Placenta: Anterior. Placenta Grade: Grade 1. Structure: normal. Anatomy Scan: Rousseau gestation. Biometry: BPD 93.7 mm 92nd% 38w1d (37w1d to 39w1d) HC 337.2 mm 70th% 38w5d (36w0d to 41w3d) AC 362.9 mm >95th% 40w1d (39w1d to 41w2d) FL 71.7 mm 48th% 36w5d (33w4d to 39w6d) OFD 117.5 mm 68th% HUM 61.4 mm 46th% 36w3d VENTRp 11.0 mm n/a HC/AC Ratio 0.929 9th% FL/AC Ratio 0.198 n/a BPD/FL Ratio 1.307 27th% HC/FL Ratio 4.703 45th% BPD/OFD Ratio 0.797 29th% EFW (lbs/oz) 8 lbs 1 ozs EFW (g) 3671 g >95th% Anatomy: Head: head shape appears normal. Heart: 4-chamber seen. Gastrointestinal Tract: Stomach appears normal. Kidneys / Adrenal Glands: Bilateral kidneys appear normal. Bladder: bladder appears normal in size and shape. Abnormal Structures: brain. Brain: Visualized and normal appearance: brain parenchyma, choroid plexus, midline falx, cavum septi pellucidi. Cerebral ventricles: abnormal. Ventriculomegaly. Wellbeing Assessment: Amniotic fluid: polyhydramnios. POOL: 31.7 cm. Non Stress Test: reactive. Biophysical Profile: body movements: normal (2), tone: normal (2), breathing movements: normal (2), Amniotic fluid volume: normal (2), Non-stress test: Reactive (2). Score 10 / 10. Report Summary: Impression: [id number] Follow-up obstetrical ultrasound This is a rousseau gestation. biometry is consistent with prior dating. The EFW is above 90% on the [place] hybrid curve. The cerebral ventricles are prominent measuring 1.0 cm. Except where noted above, the anatomy was not reviewed in detail as this is a follow-up study and the anatomy was previously assessed. Amniotic fluid is increased and movement are noted. [address] Biophysical Profile (including NST) This is a rousseau gestation. THIS STUDY IS ON DVD #406. See BPP score above. Recommendations: Follow-up cerebral ventricle measurement with weekly BPP's. Notify peds re: lateral ventricles so they can follow-up postnatally as indicated. This follow-up has been scheduled. Growth Overview: [...] 3671g , 8 lbs 1 ozs >95th%% Viet Vann MD G [facility] documented in this encounter Visit Diagnoses Not on filedocumented in this encounter Care Teams Crusher Wet Ground Mica Relationship Specialty Start Date End Date Phylicia Brown NP [address] [place] [address] PCP - General 09/19/10 11/20/13 documented as of this encounter
--- OUTSIDE RECORDS SUMMARY | 2024-04-22 04:29 | XMS_ITS | Encounter Summary ---
Author Organization [facility] Address [address] [place] [address] Care Team Providers Care Chief Writer Name Role Phone Phylicia Brown FREIGHT CAR BUILDER Primary Care Provider Encounter Details Date Type Department Care Team (Late st Contact Info) Description 01/09/2011 Results Only [facility] [phone] Point, Of Care User [address] [place] [address] Social History Tobacco Use Types Packs/Day Years [...] [facility] Endocrinology [address] [address] Twyla Mcclellan NP [address] [place] [phone] 08/30/2024 14:00 EST Office Visit [address] [phone] Twyla Mcclellan NP [address] [place] [phone] documented as of this encounter Procedures Procedure Name Priority Date/Time Associated Diagnosis Comments POCT URINALYSIS Routine 01/09/2011 13:06 EDT documented in this encounter Results * (ABNORMAL) POCT URINALYSIS (01/09/2011 13:06 EDT) Color YELLOW [facility] Clarity, UA Clear [facility] Glucose 2+(A) NEG [facility] Bilirubin Neg NEG [facility] Ketones Trace(A) NEG [facility] Specific Rankin 1.025 1.001 - 1.035 [facility] Blood Neg NEG [facility] pH 5.5 4.6 - 8.0 [facility] Protein Neg NEG [facility] Urobilinogen 0.2 0.2 - 1.0 E.U./dl [facility] Nitrite Neg NEG [facility] Leuk Esterase Neg NEG [facility] MIN route driver ID [id number] Test performed at [facility] 01/09/2011 13:0 6 EDT 01/09/2011 13:07 EDT Of Care User Point POINT OF CARE TEST O RDERABLES [facility] [address] [place] [address] documented in this encounter Visit Diagnoses Not on filedocumented in this encounter Care Teams Chief Writer Relationship Specialty Start Date End Date Phylicia Brown NP [address] [place] [address] PCP - General 09/19/10 11/20/13 documented as of this encounter
--- OUTSIDE RECORDS SUMMARY | 2024-04-22 04:29 | XMS_ITS | Encounter Summary ---
Author Organization [facility] Address [address] [place] [address] Care Team Providers Care Systems Project Manager Name Role Phone Phylicia Brown SACHIN Primary Care Provider Reason for Visit * Reason Onset Date Comments Appointment Related 03/05/2011 Encounter Details Date Type Department Care Team (Late st Contact Info) Description 03/05/2011 Telephone [facility] Obstetrics & Midwifery - [address] [phone] Billie Peres, RN Appointment Related Social History Tobacco Use Types Packs/Day Years Used Date Smoking Tobacco: Former Cigarettes Q uit: 09/26/2003 Comments Yes Sex and Gender Information Value Date Recorded Sex Assigned at Not on file Gender Identity Not on file Sexual Orientation Not on file documented as of this encounter Miscellaneous Notes * Telephone Encounter - Billie Peres RN - 03/05/2011 0917 EDT Per Zarina, Dr. Friedman is willing to read NST's each Wednesday at [facility]. Left voicemail message on Miguelina's home phone that she is to arrive between 7:30 to 8AM, call if she has questions. Records faxed to Dr. Friedman's office. documented in this encounter Plan of Treatment Upcoming Encounters Date Type Department Care Team (Late st Contact Info) Description 05/17/2024 13:00 EDT Office Visit [facility] Endocrinology - [place] [address] [place] [address] Twyla Mcclellan NP [address] [place] [phone] 08/30/2024 14:00 EST Office Visit [facility] Endocrinology - [address] [address] Twyla Mcclellan NP [address] [place] [phone] documented as of this encounter Visit Diagnoses Not on filedocumented in this encounter Care Teams Systems Project Manager Relationship Specialty Start Date End Date Phylicia Borwn NP [address] [place] [address] PCP - General 09/19/10 11/20/13 documented as of this encounter
--- OUTSIDE RECORDS SUMMARY | 2024-04-22 04:29 | XMS_ITS | Encounter Summary ---
Author Organization [facility] Address [address] [place] [address] Care Team Providers Care Nut Roaster Helper Name Role Phone Phylicia Brown NP Primary Care Provider Reason for Visit * Reason Comments Obesity Encounter Details Date Type Department Care Team (Late st Contact Info) Description 11/11/2010 9:15 EST Office Visit [facility] Bariatric Surgery [address] [address] Brielle Mendez S, MEDIA SUPERVISOR [address] [phone] DM type 2 (diabetes mellitus, type 2) (CMS-HCC) ([facility]); Morbid obesity ([facility]); with other poor obstetric history; Hypothyroid; Status post gastric bypass for obesity; Postresectional malabsorption syndrome Social History Tobacco Use Types Packs/Day Years Used Date Smoking Tobacco: Former Cigarettes Q uit: 09/26/2003 Comments Yes Sex and Gender Information Value Date Recorded Sex Assigned at Not on file Gender Identity Not on file Sexual Orientation Not on file documented as of this encounter Last Filed Vital Signs Vital Sign Reading Time Taken Comments Blood Pressure 130/70 11/11/2010 0907 EST Pulse 80 11/11/2010 0907 EST Temperature - - Respiratory Rate - - Oxygen Saturation - - Inhaled Oxygen Concentration - - Weight 100.3 kg (221 lb 3.2 oz) 11/11/2010 0907 EST Height 169.2 cm (5' 6.61) 11/11/2010 0907 EST Body Mass Index 35.05 11/11/2010 0907 EST documented in this encounter Progress Notes * Inpatient, Physician - 12/19/2010 1553 EDT * Vane Bar, SACHIN - 11/11/2010 0940 EST Nutrition Post Op Visit Subjective: about 17 week IUP-being [facility]. Had 1st trimester of morning sickness, now eating without much difficulty Questionnaire Reviewed: Yes Intolerance Episodes: yes rare now that morning sickness is over Food Intolerances: pork Current Exercise: Walking, treadmill, snow shoeing Reactive Hypoglycemic Symptoms (bypass only): No-on insulin pump with well controlled sugars Objective: Current Weight: Wt Readings from Last 1 Encounters: 11/11/2010 100.336 kg (221 lb 3.2 oz) Current BMI: Body mass index is Body mass index is 35.05 kg/(m^2).. Weight Loss since Surgery: -55 lb Weight Change since Last Visit:+9.8 lb Supplement Usage: Type Amount MVT Pre kody B12 pill Calcium w/Vit D chew Iron FeFum 2 B Complex pill Vit D 400 IU Other: folic acid Recent Labs: none Assessment: Adequate Meal Frequency: Yes Adequate Meal Composition: Yes Exercise Adequacy: Yes Nutritional Issues: weight gain a bit high for early second trimester but being monitored in [facility]. encouraged patient to continue good exercise, intake appears well balanced Plan: Continue current diet and exercise Education Provided: Other -as above * Brielle Mendez NP - 11/11/2010 0928 EST 11/11/2010 Kymberly Stewart is here in follow-up to her laparoscopic Alfredo-En-Y gastric bypass. The weight trend for the patient is 296 pounds at the initial consultation, to 211.4 pounds at the last post-op visit to today's Weight : 100.336 kg (221 lb 3.2 oz). PROBLEM LIST Patient Active [...] history V23.49 ??? Postresectional malabsorption syndrome 579.3G SUBJECTIVE: Reviewed Blood work and note a low nml TSH so recommended she D/C her levothyroxin. Is now 16 weeks IUP and going for a duplex US. She is feeling well without complaint or problem. All other labs within normal except sl elevation on thiamine so recommended she take 3 x week instead of daily. Discussed some possible scenarios with bypass and and will recheck labs in 12 weeks. Emesis: No complaints of emesis Nausea: No complaints of nausea Increased Volume Tolerance: no Abdominal Pain: No complaints of abdominal pain Lightheadedness: No complaints of lightheadedness Bowel Function: Normal Pannus: No problems related to pannus reported OBJECTIVE: General Appearance: healthy appearing Abdomen: Incision well-healed and Nontender Extremities: Normal Skin: No changes ASSESSMENT: Doing well, Expected course without obvious complications, Weight Loss: good and Vitamin levels within normal limits PLAN: 1. Return to clinic in 6 month(s). Ordered re-do of labs in 12 weeks due to possible malabsorption with . 2. Orders Placed This Encounter Procedure ??? Vitamin b1, thiamine Standing Status: Future Number of Occurrences: Standing Expiration Date: 11/11/2011 ??? Hemagram Standing Status: Future Number of Occurrences: Standing Expiration Date: 11/11/2011 ??? Creatinine Standing Status: Future Number of Occurrences: Standing Expiration Date: 11/11/2011 ??? Ferritin Standing Status: Future Number of Occurrences: Standing Expiration Date: 11/11/2011 ??? Vitamin b12 Standing Status: Future Number of Occurrences: Standing Expiration Date: 11/11/2011 ??? Iron Standing Status: Future Number of Occurrences: Standing Expiration Date: 11/11/2011 ??? Hemoglobin a1c Standing Status: Future Number of Occurrences: Standing Expiration Date: 11/11/2011 ??? Vitamin d (25,oh) Standing Status: Future Number of Occurrences: Standing Expiration Date: 11/11/2011 ??? Tsh Standing Status: Future Number of Occurrences: Standing Expiration Date: 11/11/2011 Seen and discussed with Digital Project Manager at this visit. Brielle Mendez NP 11/11/2010 9:51 documented in this encounter Miscellaneous Notes * Scanned Note-Null - Political Geographer, Scan - 08/21/2011 1037 EST documented in this encounter Plan of Treatment Upcoming Encounters Date Type Department Care Team (Late st Contact Info) Description 05/17/2024 13:00 EDT Office Visit [facility] Endocrinology [address] [phone] Twyla Mcclellan NP [address] [place] [phone] 08/30/2024 14:00 EST Office Visit [address] [phone] Twyla Mcclellan NP [address] [place] [phone] documented as of this encounter Visit Diagnoses Diagnosis DM type 2 (diabetes mellitus, type 2) ([facility]) Type II or unspecified type diabetes mellitus without mention of complication, not stated as uncontrolled Morbid obesity ([facility]) Morbid obesity with other poor obstetric history(V23.49) with other poor obstetric history Hypothyroid Unspecified hypothyroidism Status post gastric bypass for obesity Bariatric surgery status Postresectional malabsorption syndrome Other and unspecified postsurgical nonabsorption documented in this encounter Discontinued Medications Medication Sig Discontinue Reason Start Date End Da te metformin (GLUCOPHAGE) 850 mg tablet Take 850 mg by mouth 2 times daily. Patient Stopped Taking 10/17/2010 11/11/2010 documented as of this encounter Care Teams Nut Roaster Helper Relationship Specialty Start Date End Date Phylicia Brown NP [address] [place] [phone] PCP - General 09/19/10 11/20/13 documented as of this encounter
--- OUTSIDE RECORDS SUMMARY | 2024-04-22 04:29 | XMS_ITS | Encounter Summary ---
Author Organization [facility] Address [address] [place] [address] Care Team Providers Care Boat Laborer Name Role Phone Stephanie Phylicia OFFICE ASSISTANT Primary Care Provider Encounter Details Date Type Department Care Team (Late st Contact Info) Description 02/13/2011 Results Only Imaging [facility] Obstetrics & Midwifery - [address] [address] Viet Vann MD [address] [facility], [address] 4 [place] [phone] Social History Tobacco Use Types Packs/Day Years [...] 05/17/2024 13:00 EDT Office Visit [facility] Endocrinology - [address] [address] Twyla Mcclellan NP [address] [place] [address] [address] [place] [phone] 08/30/2024 14:00 EST Office Visit [facility] Endocrinology - [address] [phone] Twyla Mcclellan, OFFICE ASSISTANT [address] [phone] documented as of this encounter Procedures Procedure Name Priority Date/Time Associated Diagnosis Comments JAIL BIOPHYSICAL PROFILE 03/20/2011 14:21 EDT documented in this encounter Results * JAIL BIOPHYSICAL PROFILE (03/20/2011 14:21 EDT) Anatomical Region Laterality Modality Other 03/20/2011 14:2 1 EDT 03/20/2011 15:06 EDT Narrative 03/20/2011 15:06 EDT Indication: Maternal disease: Diabetes, pregestational type [...] EDC: ??EDC: 04/19/2011 GA by stated EDC: 35w5d Earlier Assessment on: 09/13/2010 EDC: 04/19/2011 GA by earlier assessment: 35w5d Best Overall Assessment: 03/20/2011 EDC: 04/19/2011 Assessed GA: 35w5d The Best Overall Assessment is based on an earlier assessment on 09/13/2010. General Evaluation: heart activity: Present. heart rate: 160 bpm. Presentation: cephalic, Spine right. movement: present. Amniotic Fluid: Normal. POOL ??24.7 cm. Maximal vertical pocket 9.2 cm. Placenta: Anterior. Placenta Grade: Grade 1. Structure: normal. Anatomy Scan: Rousseau gestation. Wellbeing Assessment: Amniotic fluid: Normal. POOL: 24.7 cm. MVP: 9.2 cm. Q1: 4.2 cm. Q2: 6.8 cm. Q3: 9.2 cm. Q4: 4.5 cm. Non Stress Test: reactive. heart rate: 150 bpm. Biophysical Profile: body movements: normal (2), tone: normal (2), breathing movements: normal (2), Amniotic fluid volume: normal (2), Non-stress test: Reactive (2). Score 10 / 10. Report Summary: Impression: [id number] Biophysical Profile (including NST) This is a rousseau gestation. See BPP score above. Recommendations: Follow-up with weekly BPP's. This follow-up has been scheduled. External image archive: DVD: No: 552. Aerospace Technician: Jens Scott RDMS Procedure Note 03/20/2011 Indication: Maternal disease: Diabetes, pregestational type 2. [...] EDC: EDC: 04/19/2011 GA by stated EDC: 35w5d Earlier Assessment on: 09/13/2010 EDC: 04/19/2011 GA by earlier assessment: 35w5d Best Overall Assessment: 03/20/2011 EDC: 04/19/2011 Assessed GA: 35w5d The Best Overall Assessment is based on an earlier assessment on 09/13/2010. General Evaluation: heart activity: Present. heart rate: 160 bpm. Presentation: cephalic, Spine right. movement: present. Amniotic Fluid: Normal. POOL 24.7 cm. Maximal vertical pocket 9.2 cm. Placenta: Anterior. Placenta Grade: Grade 1. Structure: normal. Anatomy Scan: Rousseau gestation. Wellbeing Assessment: Amniotic fluid: Normal. POOL: 24.7 cm. MVP: 9.2 cm. Q1: 4.2 cm. Q2: 6.8 cm. Q3: 9.2 cm. Q4: 4.5 cm. Non Stress Test: reactive. heart rate: 150 bpm. Biophysical Profile: body movements: normal (2), tone: normal (2), breathing movements: normal (2), Amniotic fluid volume: normal (2), Non-stress test: Reactive (2). Score 10 / 10. Report Summary: Impression: [id number] Biophysical Profile (including NST) This is a rousseau gestation. See BPP score above. Recommendations: Follow-up with weekly BPP's. This follow-up has been scheduled. External image archive: DVD: No: 552. Aerospace Technician: Jens Scott RDMS Viet Vann MD [facility] documented in this encounter Visit Diagnoses Not on filedocumented in this encounter Care Teams Boat Laborer Relationship Specialty Start Date End Date Phylicia Brown NP [address] [place] [phone] PCP - General 09/19/10 11/20/13 documented as of this encounter
--- OUTSIDE RECORDS SUMMARY | 2024-04-22 04:29 | XMS_ITS | Encounter Summary ---
Author Organization [facility] Address [address] [place] [address] Care Team Providers Care Physician/Allergy/Immunology Name Role Phone RossAll Phylicia SACHIN Primary Care Provider Reason for Visit * Reason Comments Routine Visit Pt. reports sinus infection (treated by PCP), 1 episode heart palpitations last night, +FM. Pt. denies VB/LOF, ctx. Encounter Details Date Type Department Care Team (Late st Contact Info) Description 01/30/2011 16:00 EDT Routine [facility] Obstetrics & Midwifery - [address] [phone] Viet Vann MD [address] [facility], Level 4 [place] [phone] GA: 28w5d Social History Tobacco Use Types Packs/Day Years Used Date Smoking Tobacco: Former Cigarettes Q uit: 09/26/2003 Comments Yes Sex and Gender Information Value Date Recorded Sex Assigned at Not on file Gender Identity Not on file Sexual Orientation Not on file documented as of this encounter Last Filed Vital Signs Vital Sign Reading Time Taken Comments Blood Pressure 124/74 01/30/2011 1615 EDT Pulse - - Temperature - - Respiratory Rate - - Oxygen Saturation - - Inhaled Oxygen Concentration - - Weight 109.2 kg (240 lb 12.8 oz) 01/30/2011 1615 EDT Height - - Body Mass Index 37.71 01/09/2011 1200 EDT documented in this encounter Progress Notes * Viet Vann MD - 01/30/2011 1729 EDT MFM Attending I discussed Ms. Kymberly Stewart with Dr. Kitchen at the time of her visit. I agree with her notes and plans below. Viet Vann MD 01/30/2011 17:29 * Ashley Rojas - 01/30/2011 1727 EDT Recent Labs Basename 01/30/11 1649 ??? COLOR YELLOW ??? CLARITYU Clear ??? GLUCOSEUAPOC 3+* ??? BILIRUBIN Neg ??? KETONES Trace* ??? SPECGRAV 1.020 ??? BLOOD Neg ??? PHUA 6.0 ??? PROTEINUAPOC Neg ??? UROBILINOGEN 0.2 ??? NITRITE Neg ??? LEUKESTER Neg * Lorelei Kitchen MD - 01/30/2011 1633 EDT S: Started second course of amoxacillin Wednesday for sinusitis. No other complaints. FM present. No ctx, LOF, VB. Will complete lab work at [facility] prior to next visit. Fastings: 90s 2hr PPL and D: 120s 2hr PPD: Majority less than 130, occasional 160s (had cold/sinusitis over the last 3 weeks). Filed Vitals: 01/30/11 1615 BP: 124/74 Weight: 109.226 kg (240 lb 12.8 oz) FHR 156 on US, POOL 10 cm, EFW 1359 gm, 50%ile Kymberly Means a 35 y.o. @ [id number] Diabetes - Lorelei Kitchen MD 01/30/111722 Signed Overall good glycemic control, AIC at end of December 6.6 per pt. Sugars a little elevated in relationto sinusitis, overall good control. growth 50th%ile. Hypothyroid - Lorelei Kitchen MD 01/30/111726 Signed Continue current synthroid dose, TSH prior to next visit. HTN (hypertension) - Lorelei Kitchen MD 01/30/111726 Signed Normotensive. Status Post Gastric Bypass for Obesity - Lorelei Kitchen MD 01/30/11 172 Signed Follos with [facility] Mendez in [place], has labs due this month, will complete through [facility]. Previous section - Lorelei Kitchen MD 01/30/11 172 Signed Plans repeat. RTC 2 weeks Lorelei Kitchen MD documented in this encounter Miscellaneous Notes * Assessment & Plan Note - Lorelei Kitchen MD - 01/30/20111726 EDTAssociated Problem(s): History of section Plans repeat. * Assessment & Plan Note - Lorelei Kitchen MD - 01/30/20111726 EDTAssociated Problem(s): Status post gastric bypass for obesity Follos with Alma Mendez in [place], has labs due this month, will complete through [facility]. * Assessment & Plan Note - Lorelei Kitchen MD - 01/30/20111726 EDTAssociated Problem(s): Hypertensive disorder Normotensive. * Assessment & Plan Note - Lorelei Kitchen MD - 01/30/20111726 EDTAssociated Problem(s): Hypothyroidism Continue current synthroid dose, TSH prior to next visit. * Assessment & Plan Note - Lorelei Kitchen MD - 01/30/20111722 EDTAssociated Problem(s): Diabetes mellitus ([facility]) Overall good glycemic control, AIC at end of December 6.6 per pt. Sugars a little elevated in relationto sinusitis, overall good control. growth 50th%ile. documented in this encounter Plan of Treatment Upcoming Encounters Date Type Department Care Team (Late st Contact Info) Description 05/17/2024 13:00 EDT Office Visit [facility] Endocrinology - [address] [phone] Twyla Mcclellan NP [address] [place] [phone] 08/30/2024 14:00 EST Office Visit [address] [address] Twyla Mcclellan NP [address] [place] [phone] documented as of this encounter Visit Diagnoses Diagnosis Previous section Other postprocedural status HTN (hypertension) Unspecified essential hypertension Asthma Unspecified asthma Hypothyroid Unspecified hypothyroidism Diabetes ([facility]) Type II or unspecified type diabetes mellitus without mention of complication, not stated as uncontrolled Status post gastric bypass for obesity Bariatric surgery status with other poor obstetric history(V23.49) with other poor obstetric history documented in this encounter Historical Medications * This list may reflect changes made after this encounter. Medication Sig Dispensed Refills Start Date End Date amoxicillin (AMOXIL) 500 mg capsule Take 500 mg by mouth every 12 hours. 01/28/2011 02/13/2011 added in this encounter Orders Lab Orders Without Results Count Last Ordered D ate First Ordered Date POCT URINE DIPSTICK 1 01/30/2011 documented in this encounter Care Teams Physician/Allergy/Immunology Relationship Specialty Start Date End Date Phylicia Brown NP [address] [place] [address] PCP - General 09/19/10 11/20/13 documented as of this encounter
--- OUTSIDE RECORDS SUMMARY | 2024-04-22 04:29 | XMS_ITS | Encounter Summary ---
Author Organization [facility] Address [address] [place] [address] Care Team Providers Care Roving Tester Laboratory Name Role Phone MkSongPhylicia SACHIN Primary Care Provider Reason for Visit * Reason Comments Routine Visit Encounter Details Date Type Department Care Team (Late st Contact Info) Description 03/12/2011 15:15 EDT Routine [facility] Obstetrics & Midwifery - [facility] [address] [place], [place] [phone] Viet Vann MD [address] [facility], [address] [place] [phone] Lee Cowan MD GA: 34w4d Social History Tobacco Use Types Packs/Day Years Used Date Smoking Tobacco: Former Cigarettes Q uit: 09/26/2003 Comments Yes Sex and Gender Information Value Date Recorded Sex Assigned at Not on file Gender Identity Not on file Sexual Orientation Not on file documented as of this encounter Last Filed Vital Signs Vital Sign Reading Time Taken Comments Blood Pressure 132/80 03/12/2011 1500 EDT Pulse - - Temperature - - Respiratory Rate - - Oxygen Saturation - - Inhaled Oxygen Concentration - - Weight 111.9 kg (246 lb 12.8 oz) 03/12/2011 1500 EDT Height - - Body Mass Index 38.65 01/09/2011 1200 EDT documented in this encounter Progress Notes * Melida Leija CNM - 03/12/2011 1647 EDT S: Miguelina has a cold since Wednesday - nasal congestion, using anirudh pot. Otherwise well. Plans to take 8wks off of work. will take a few days off work to help, then Miguelina's mother will help - [address] the [address]. Breastfed 3 yo for 9 months with formula supplementation. Didn't make enough milk. 09/21 and 09/21. 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 Pumped when back to work. Plans to try again this time. O: BP 132/80 Wt 111.948 kg (246 lb 12.8 oz) UA - 3+ glucose, neg protein A/P: 36 yo @ 34+4 wks Diabetes - Melida Leija CNM 03/12/11 1638 Addended Per patient BS are WNL, managed by SACHIN Mejia. Growth 02/27 - EFW 2594g 85% Next growth U/S 03/27 Supervision of high-risk - Melida Leija CNM 03/12/11 1648 Addended Testing has been WNL - NST's weekly @ [facility]. BPP's weekly here. Vitamin K shots to start @ next visit - 36 wks. Previous section - Melida Leija CNM 03/12/11 1640 Signed Scheduled repeat on 04/14 with TL HTN (hypertension) - Melida Leija CNM 03/12/11 1641 Signed Stable BP. * Georgiana Enriquez - 03/12/2011 1557 EDT I, Georgiana Enriquez, notified Dr. MELIDA LEIJA CNM of Critical Glucose values on 03/12/2011t 15:51. Treatment Plan: Patient Notified: yes Date: 03/12/2011 Time: 15:51 Recent Labs Basename 03/12/11 1545 ??? COLOR YELLOW ??? CLARITYU Clear ??? GLUCOSEUAPOC 3+* ??? BILIRUBIN Neg ??? KETONES Neg ? ? SPECGRAV <=1.005 ??? BLOOD Neg ??? PHUA 5.5 ??? PROTEINUAPOC Neg ??? UROBILINOGEN 0.2 ??? NITRITE Neg ??? LEUKESTER Neg * Billie Peres, RN - 03/12/2011 1524 EDT Denies cramping, bleeding or leaking. Some swelling on hot days. documented in this encounter Miscellaneous Notes * Assessment & Plan Note - Melida Leija CNM - 03/12/2011 1641 EDT Associated Problem(s): Hypertensive disorder Stable BP. * Assessment & Plan Note - Melida Leija CNM - 03/12/2011 1640 EDT Associated Problem(s): History of section Scheduled repeat on 04/14 with TL * Assessment & Plan Note - Melida Leija CNM - 03/12/2011 1639 EDT Associated Problem(s): Supervision of high-risk Testing has been WNL - NST's weekly @ [facility]. BPP's weekly here. Vitamin K shots to start @ next visit - 36 wks. * Assessment & Plan Note - Melida Leija CNM - 03/12/2011 1636 EDT Associated Problem(s): Diabetes mellitus ([facility]) Per patient BS are WNL, managed by SACHIN Mejia. Growth 02/27 - EFW 2594g 85% Next growth U/S 03/27 documented in this encounter Plan of Treatment Upcoming Encounters Date Type Department Care Team (Late st Contact Info) Description 05/17/2024 13:00 EDT Office Visit [facility] Endocrinology - [address] [phone] Twyla Mcclellan NP [address] [place] [phone] 08/30/2024 14:00 EST Office Visit [facility] Endocrinology - [address] [address] Twyla Mcclellan NP [address] [place] [phone] documented as of this encounter Visit Diagnoses Diagnosis Previous section Other postprocedural status with other poor obstetric history(V23.49) with other poor obstetric history HTN (hypertension) Unspecified essential hypertension Asthma Unspecified asthma Hypothyroid Unspecified hypothyroidism Diabetes ([facility]) Type II or unspecified type diabetes mellitus without mention of complication, not stated as uncontrolled Status post gastric bypass for obesity Bariatric surgery status Supervision of high-risk Unspecified high-risk documented in this encounter Orders Lab Orders Without Results Count Last Ordered D ate First Ordered Date POCT URINE DIPSTICK 1 03/12/2011 documented in this encounter Care Teams Roving Tester Laboratory Relationship Specialty Start Date End Date Phylicia Brown NP [address] [place] [address] PCP - General 09/19/10 11/20/13 documented as of this encounter
--- OUTSIDE RECORDS SUMMARY | 2024-04-22 04:29 | XMS_ITS | Encounter Summary ---
Author Organization [facility] Address [address] [place] [id number] Care Team Providers Care Automotive Glass Specialist Name Role Phone CodyAllPhylicia SACHIN Primary Care Provider Reason for Visit * Reason Comments Routine Visit Encounter Details Date Type Department Care Team (Late st Contact Info) Description 03/27/2011 13:30 EDT Routine [facility] Obstetrics & Midwifery - [address] [address] Kelsi Chambers MD GA: 36w5d Social History Tobacco Use Types Packs/Day Years Used Date Smoking Tobacco: Former Cigarettes Q uit: 09/26/2003 Comments Yes Sex and Gender Information Value Date Recorded Sex Assigned at Not on file Gender Identity Not on file Sexual Orientation Not on file documented as of this encounter Last Filed Vital Signs Vital Sign Reading Time Taken Comments Blood Pressure 118/80 03/27/2011 1349 EDT Pulse - - Temperature - - Respiratory Rate - - Oxygen Saturation - - Inhaled Oxygen Concentration - - Weight 114.5 kg (252 lb 6.4 oz) 03/27/2011 1349 EDT Height - - Body Mass Index 39.52 01/09/2011 1200 EDT documented in this encounter Progress Notes * Tigist Hansen LPN - 03/27/2011 1451 EDT Recent Labs Basename 03/27/11 1445 ??? COLOR YELLOW ??? CLARITYU Clear ??? GLUCOSEUAPOC 3+* ??? BILIRUBIN Neg ??? KETONES Neg ? ? SPECGRAV >=1.030 ??? BLOOD Neg ??? PHUA 5.5 ??? PROTEINUAPOC Neg ??? UROBILINOGEN 0.2 ??? NITRITE Neg ??? LEUKESTER Neg * Maximo Sims MD - 03/27/2011 1418 EDT 36+ Weeks Subjective: Kymberly Stewart is a 36 y.o. female at 36w5d here for a visit. She has history of DM II, gastric bypass, hypothyroidism. Patient is on an insulin pump managed by Phylicia Brown. Patient reports no complaints Movement Present No contactions. Objective: Filed Vitals: 03/27/11 1349 BP: 118/80 Weight: 114.488 kg (252 lb 6.4 oz) Additional exam: CVS- RRR Lungs - Clear ABD - soft, obese, gravid. Ultrasounds: Pending today. Assessment: 1. IUP at 36w5d: size equals dates 2. Labs reviewed. GBS+ 3.Aneuploidy screening: declined Plan: 2. DM - Insulin managed by Phylicia Brown via pump. 3. Vit K shot today 4. Follow up in 1wks 5. Repeat C/S on 04/14 Maximo Sims MD [facility] ATTENDING I discussed the patient with the fellow at the time of the visit. I agree with the findings and theplan of care documented in the fellow's note. Kelsi Chambers M.D. documented in this encounter Plan of Treatment Upcoming Encounters Date Type Department Care Team (Late st Contact Info) Description 05/17/2024 13:00 EDT Office Visit [facility] Endocrinology - [facility] [address] [place], [place] [phone] Twyla Mcclellan NP [address] [facility] [address] [place] [phone] 08/30/2024 14:00 EST Office Visit [facility] Endocrinology - [facility] [address] [place] [place] [address] Twyla Mcclellan FINISHER ACCORDION [address] [facility] [address] [place] [phone] documented as of this encounter Visit Diagnoses Diagnosis Previous section Other postprocedural status with other poor obstetric history(V23.49) with other poor obstetric history HTN (hypertension) Unspecified essential hypertension Asthma Unspecified asthma Hypothyroid Unspecified hypothyroidism Diabetes ([facility]) Type II or unspecified type diabetes mellitus without mention of complication, not stated as uncontrolled Status post gastric bypass for obesity Bariatric surgery status Supervision of high-risk Unspecified high-risk documented in this encounter Administered Medications Inactive Administered Medications - up to 3 most recent administrations Medication Order MAR Action Action Date Dose Rate Site phytonadione (VITAMIN K) injection 10 mg 10 mg, subcutaneous, NOW X1, 1 dose, On Wed03/27/11 at 1600, Routine Given 03/27/2011 15:38 EDT 10 mg Left Ar m documented in this encounter Discontinued Medications Medication Sig Discontinue Reason Start Date End Da te citalopram (CELEXA) 20 mg tablet Take 20 mg by mouth daily. 03/27/2011 documented as of this encounter Orders Medications Ordered That Aldo ht Not Have Been Administered Count Last Ordered Date First Ordered Date phytonadione (VITAMIN K) injection 10 mg 1 03/27/2011 Lab Orders Without Results Count Last Ordered D ate First Ordered Date POCT URINE DIPSTICK 1 03/27/2011 documented in this encounter Care Teams Automotive Glass Specialist Relationship Specialty Start Date End Date Phylicia Brown NP [address] [place] [address] PCP - General 09/19/10 11/20/13 documented as of this encounter
--- OUTSIDE RECORDS SUMMARY | 2024-04-22 04:29 | XMS_ITS | Encounter Summary ---
Author Organization [facility] Address [address] [place] [address] Care Team Providers Care Earth Science Professor Name Role Phone CodyAllPhylicia SACHIN Primary Care Provider Reason for Visit * Reason Comments Routine Visit Encounter Details Date Type Department Care Team (Late st Contact Info) Description 01/09/2011 12:45 EDT Routine [facility] Obstetrics & Midwifery - [address] [address] Kelsi Chambers MD GA: 25w5d Social History Tobacco Use Types Packs/Day Years Used Date Smoking Tobacco: Former Cigarettes Q uit: 09/26/2003 Comments Yes Sex and Gender Information Value Date Recorded Sex Assigned at Not on file Gender Identity Not on file Sexual Orientation Not on file documented as of this encounter Last Filed Vital Signs Vital Sign Reading Time Taken Comments Blood Pressure 126/76 01/09/2011 1200 EDT Pulse - - Temperature - - Respiratory Rate - - Oxygen Saturation - - Inhaled Oxygen Concentration - - Weight 107.1 kg (236 lb 3.2 oz) 01/09/2011 1200 EDT Height 170.2 cm (5' 7.01) 01/09/2011 1200 EDT Body Mass Index 36.99 01/09/2011 1200 EDT documented in this encounter Progress Notes * Felipa Montilla - 01/09/2011 1402 EDT Recent Labs Basename 01/09/11 1306 ??? COLOR YELLOW ??? CLARITYU Clear ??? GLUCOSEUAPOC 2+* ??? BILIRUBIN Neg ??? KETONES Trace* ??? SPECGRAV 1.025 ??? BLOOD Neg ??? PHUA 5.5 ??? PROTEINUAPOC Neg ??? UROBILINOGEN 0.2 ??? NITRITE Neg ??? LEUKESTER Neg * Kelsi Chambers MD - 01/09/2011 1307 EDT Subjective: Kymberly Stewart is a 35 y.o. at 25w5d here for a visit. #1 IUP Patient reports no complaints Contractions None Movement present #2. Additional problems: see below Objective: BP 126/76 Ht 170.2 cm (67.01) Wt 107.14 kg (236 lb 3.2 oz) BMI 36.99 kg/m2 Assessment: Plan: 1. IUP at 25w5d: maternal habitis precludes accurate size measurement 2. Problem list reviewed and updated. Diabetes - Kelsi Chambers MD 01/09/11 1306 Addended Last HbA1c 6.6 Explained testing. Growth at 28 and 32 wks testing weekly At 32 wks if AGA - BPP or 2x wk NST. ( would like NST's at [facility] if that can be arranged on weeks she doesn't have appt. . ) If LGA 2x wk testing with 2nd test at [facility] if possible Hypothyroid - Kelsi Chambers MD 01/09/11 1302 Signed TSH ordered in January Status Post Gastric Bypass for Obesity - Kelsi Chambers MD 01/09/11 1303 Signed 6 lb wt gain in 4 wk , 23 total for Reviewed diet 3. Follow-up in 3 weeks . documented in this encounter Miscellaneous Notes * Assessment & Plan Note - Kelsi Chambers MD - 01/09/2011 1303 EDTAssociated Problem(s): Status post gastric bypass for obesity 6 lb wt gain in 4 wk , 23 total for Reviewed diet * Assessment & Plan Note - Kelsi Chambers MD - 01/09/2011 1302 EDTAssociated Problem(s): Hypothyroidism TSH ordered in January * Assessment & Plan Note - Kelsi Chambers MD - 01/09/2011 1302 EDTAssociated Problem(s): Diabetes mellitus ([facility]) Last HbA1c 6.6 Explained testing. Growth at 28 and 32 wks testing weekly At 32 wks if AGA - BPP or 2x wk NST. ( would like NST's at [facility] if that can be arranged on weeks she doesn't have appt. . ) If LGA 2x wk testing with 2nd test at [facility] if possible documented in this encounter Plan of Treatment Upcoming Encounters Date Type Department Care Team (Late st Contact Info) Description 05/17/2024 13:00 EDT Office Visit [facility] Endocrinology - [address] [phone] Twyla Mcclellan NP [address] [place] [phone] 08/30/2024 14:00 EST Office Visit [facility] Endocrinology - [address] [address] Twyla Mcclellan NP [address] [place] [phone] documented as of this encounter Visit Diagnoses Diagnosis Previous section Other postprocedural status HTN (hypertension) Unspecified essential hypertension Asthma Unspecified asthma Hypothyroid Unspecified hypothyroidism Diabetes ([facility]) Type II or unspecified type diabetes mellitus without mention of complication, not stated as uncontrolled Status post gastric bypass for obesity Bariatric surgery status with other poor obstetric history(V23.49) with other poor obstetric history documented in this encounter Care Teams Earth Science Professor Relationship Specialty Start Date End Date Phylicia Brown NP [address] [place] [phone] PCP - General 09/19/10 11/20/13 documented as of this encounter
--- OUTSIDE RECORDS SUMMARY | 2024-04-22 04:29 | XMS_ITS | Encounter Summary ---
Author Organization [facility] Address [address] [place] [address] Care Team Providers Care Sanding Machine Operator Name Role Phone Phylicia Brown SACHIN Primary Care Provider Reason for Visit * Reason Onset Date Comments Medication Management 03/26/2011 Encounter Details Date Type Department Care Team (Late st Contact Info) Description 03/26/2011 Telephone [facility] Obstetrics & Midwifery - [address] [phone] Ashley Rojas, press worker helper Management Social History Tobacco Use Types Packs/Day Years Used Date Smoking Tobacco: Former Cigarettes Q uit: 09/26/2003 Comments Yes Sex and Gender Information Value Date Recorded Sex Assigned at Not on file Gender Identity Not on file Sexual Orientation Not on file documented as of this encounter Miscellaneous Notes * Telephone Encounter - Ashley Rojas - 03/26/2011 1409 EDT Vit K ordered at [facility] out patient pharmacy. Call to Kymberly's home phone. Left message with her mother to fiber picker Vit. K before her appointment with us tomorrow. Miguelina's mom repeated back info and will tell miguelina. documented in this encounter Plan of Treatment Upcoming Encounters Date Type Department Care Team (Late st Contact Info) Description 05/17/2024 13:00 EDT Office Visit [facility] Endocrinology - [address] [address] Twyla Mcclellan NP [address] [phone] 08/30/2024 14:00 EST Office Visit [facility] Endocrinology - [address] [address] Twyla Mcclellan NP [address] [phone] documented as of this encounter Visit Diagnoses Not on filedocumented in this encounter Care Teams Sanding Machine Operator Relationship Specialty Start Date End Date Phylicia Brown NP [address] [place] [address] PCP - General 09/19/10 11/20/13 documented as of this encounter
--- OUTSIDE RECORDS SUMMARY | 2024-04-22 04:29 | XMS_ITS | Encounter Summary ---
Author Organization [facility] Address [address] [place] [address] Care Team Providers Care Can Line Examiner Name Role Phone Phylicia Brown ARMATURE CONNECTOR Primary Care Provider Encounter Details Date Type Department Care Team (Late st Contact Info) Description 12/18/2010 Results Only [facility] [phone] Point, Of Care User [address] [place] [address] Social History Tobacco Use Types Packs/Day Years [...] Info) Description 05/17/2024 13:00 EDT Office Visit [facility] Endocrinology [address] [address] Twyla Mcclellan NP [address] [place] [phone] 08/30/2024 14:00 EST Office Visit [address] [phone] Twyla Mcclellan NP [address] [place] [phone] documented as of this encounter Procedures Procedure Name Priority Date/Time Associated Diagnosis Comments POCT URINALYSIS Routine 12/18/2010 13:40 EDT documented in this encounter Results * (ABNORMAL) POCT URINALYSIS (12/18/2010 13:40 EDT) Color YELLOW [facility] Clarity, UA Clear [facility] Glucose 3+(A) NEG [facility] Bilirubin Neg NEG [facility] Ketones Neg NEG [facility] Specific [place] <=1.005 1.001 - 1.035 [facility] Blood Neg NEG [facility] pH 5.5 4.6 - 8.0 [facility] Protein Neg NEG [facility] Urobilinogen 0.2 0.2 - 1.0 E.U./dl [facility] Nitrite Neg NEG [facility] Leuk Esterase Neg NEG [facility] MIN ammunition supervisor ID [id number] Test performed at [facility] 12/18/2010 13:4 0 EDT 12/18/2010 13:41 EDT Of Care User Point POINT OF CARE TEST O RDERABLES [facility] [address] [place] [address] documented in this encounter Visit Diagnoses Not on filedocumented in this encounter Care Teams Can Line Examiner Relationship Specialty Start Date End Date Phylicia Brown NP [address] [place] [address] PCP - General 09/19/10 11/20/13 documented as of this encounter
--- OUTSIDE RECORDS SUMMARY | 2024-04-22 04:29 | XMS_ITS | Encounter Summary ---
Author Organization [facility] Address [address] [place] [address] Care Team Providers Care Morning Nanny Name Role Phone Phylicia Brown SACHIN Primary Care Provider Reason for Visit * Reason Comments Routine Visit Encounter Details Date Type Department Care Team (Late st Contact Info) Description 12/18/2010 13:15 EDT Routine [facility] Obstetrics & Midwifery - [address] [address] Kelsi Chambers MD Cherouny, Peter H, MD GA: 22w4d Social History Tobacco Use Types Packs/Day Years Used Date Smoking Tobacco: Former Cigarettes Q uit: 09/26/2003 Comments Yes Sex and Gender Information Value Date Recorded Sex Assigned at Not on file Gender Identity Not on file Sexual Orientation Not on file documented as of this encounter Last Filed Vital Signs Vital Sign Reading Time Taken Comments Blood Pressure 132/60 12/18/2010 1312 EDT Pulse - - Temperature - - Respiratory Rate - - Oxygen Saturation - - Inhaled Oxygen Concentration - - Weight 103.9 kg (229 lb) 12/18/2010 1312 EDT Height - - Body Mass Index 35.34 11/13/2010 0927 EST documented in this encounter Progress Notes * Tigist Hansen LPN - 12/18/2010 1344 EDT Recent Labs Basename 12/18/10 1340 ??? COLOR YELLOW ??? CLARITYU Clear ??? GLUCOSEUAPOC 3+* ??? BILIRUBIN Neg ??? KETONES Neg ? ? SPECGRAV <=1.005 ??? BLOOD Neg ??? PHUA 5.5 ??? PROTEINUAPOC Neg ??? UROBILINOGEN 0.2 ??? NITRITE Neg ??? LEUKESTER Neg Provider informed Glucose 3+. * Lorelei Kitchen MD - 12/18/2010 1328 EDT S: No ctx, LOF, VB. FM present. echo nl today. Feeling well. Had massage today. Fastings: 80s 2hr PP 100-110 for all meals Ratio: 1:10 Pump: 1 un at 12 am, 1.25 at 8 am, 1pm 1.3, 7 pm 1 un O: Filed Vitals: 12/18/10 1312 BP: 132/60 Weight: 103.874 kg (229 lb) FH 22 cm Kymberly S Bruderis a 35 y.o. @ [id number] Diabetes - Lorelei Kitchen MD 12/18/10 1445 Signed Excellent sugars, following with Endocrine. Nl echo today. Ordered follow- up growth for 28 weeks. Hypothyroid - Lorelei Kitchen MD 12/18/10 1446 Signed Will need repeat labs in third trimester, will have drawn in January with Gastric bypass labs. HTN (hypertension) - Lorelei Kitchen MD 12/18/10 1446 Signed Normotensive. No meds. Status Post Gastric Bypass for Obesity - Lorelei Kitchen MD 12/18/10 1446 Signed Next labs in January. Previous section - Lorelei Kitchen MD 12/18/10 1446 Signed Signed BTL papers today. with other poor obstetric history - Lorelei Kitchen MD 12/18/10 1447 Signed Signed BTL papers today. RTC 3 weeks. Lorelei Kitchen MD Attending Addendum Patient reviewed with Dr. Kitchen at the time of the visit. Agree with the assessment and plan as outlined. Lee Cowan M.D. documented in this encounter Miscellaneous Notes * Scanned Note-Null - Inpatient, Physician - 12/19/2010 1341 EDT * Assessment & Plan Note - Lorelei Kitchen MD - 12/18/2010 1447 EDTAssociated Problem(s): with poor obstetric history Signed BTL papers today. RTC 3 weeks. * Assessment & Plan Note - Lorelei Kitchen MD - 12/18/2010 1446 EDTAssociated Problem(s): History of section Signed BTL papers today. * Assessment & Plan Note - Lorelei Kitchen MD - 12/18/2010 1446 EDTAssociated Problem(s): Status post gastric bypass for obesity Next labs in January. * Assessment & Plan Note - Lorelei Kitchen MD - 12/18/2010 1446 EDTAssociated Problem(s): Hypertensive disorder Normotensive. No meds. * Assessment & Plan Note - Lorelei Kitchen MD - 12/18/2010 1446 EDTAssociated Problem(s): Hypothyroidism Will need repeat labs in third trimester, will have drawn in January with Gastric bypass labs. * Assessment & Plan Note - Lorelei Kitchen MD - 12/18/2010 1445 EDTAssociated Problem(s): Diabetes mellitus ([facility]) Excellent sugars, following with Endocrine. Nl echo today. Ordered follow- up growth for 28 weeks. documented in this encounter Plan of Treatment Upcoming Encounters Date Type Department Care Team (Late st Contact Info) Description 05/17/2024 13:00 EDT Office Visit [facility] Endocrinology - [address] [address] Twyla Mcclellan NP [address] [place] [address] [place] [phone] 08/30/2024 14:00 EST Office Visit [address] [address] Twyla Mcclellan NP [address] [place] [phone] documented as of this encounter Procedures Procedure Name Priority Date/Time Associated Diagnosis Comments [facility] FOLLOW-UP Routine 01/30/2011 15:59 EDT HTN (hypertension) Previous section Asthma Hypothyroid Diabetes (CMS-HCC) (HCC-CMS) Status post gastric bypass for obesity documented in this encounter Results * [facility] FOLLOW-UP (01/30/2011 15:59 EDT) Anatomical Region Laterality Modality Other 01/30/2011 15:5 9 EDT 01/30/2011 16:11 EDT Narrative 01/30/2011 16:11 EDT Indication: Maternal disease: Diabetes, pregestational. Maternal age (35 years). Chronic hypertension. History: Age: 35 years. Maternal age at EDC: 36 years. : 2 Para: 1. Previous pregnancies: Children born at term: 1. Living children: 1. Dating: Stated EDC: ??EDC: 04/19/2011 GA by stated EDC: 28w5d Current Scan on: 01/30/2011 EDC: 04/15/2011 GA by current scan: 29w2d Best Overall Assessment: 01/30/2011 EDC: 04/19/2011 Assessed GA: 28w5d The calculation of the gestational age by current scan was based on BPD, HC, AC, FL and HUM. The Best Overall Assessment is based on the stated EDC. General Evaluation: heart activity: Present. heart rate: 156 bpm. Presentation: variable, Head on maternal right. movement: visible. Amniotic Fluid: Normal. POOL ??10.1 cm. Placenta: Anterior fundal. Placenta Grade: Grade 1. Structure: normal. Anatomy Scan: Rousseau gestation. Biometry: BPD 74.7 mm 77th% 30w0d (29w2d to 30w5d) HC 282.0 mm 82nd% 30w6d (28w0d to 33w6d) AC 254.3 mm 68th% 29w4d (28w6d to 30w2d) FL 52.6 mm 17th% 28w0d (25w6d to 30w1d) OFD 100.6 mm 85th% 30w1d HUM 48.2 mm 34th% 28w1d VENTRp 8.3 mm n/a HC/AC Ratio 1.109 ??61st% FL/AC Ratio 0.207 ??n/a BPD/FL Ratio 1.420 ??59th% BPD/OFD Ratio 0.743 ??9th% EFW (lbs/oz) 3 lbs 0 ozs EFW (g) 1359 g ??56th% Anatomy: Head: head shape appears normal. Gastrointestinal Tract: Stomach appears normal. Kidneys / Adrenal Glands: Bilateral kidneys appear normal. Bladder: bladder appears normal in size and shape. Summary of Ultrasound Findings: Transabdominal US. U/S machine: [employer] e8. U/S view: limited by adiposity. Report Summary: Impression: [id number] Follow-up obstetrical ultrasound This is a rousseau gestation. biometry is consistent with prior dating. The EFW is about 50% on the [place] hybrid curve. Except where noted above, the anatomy was not reviewed in detail as this is a follow-up study and the anatomy was previously assessed. Normal fluid and movement are noted. Recommendations: We recommend repeat evaluation for growth assessment monthly until delivery. This follow-up has not been scheduled. Growth Overview: Date GA BPD [mm] HC [mm] AC [mm] FL [mm] HUM [mm] EFW GP 09/26/2010 10 + 5 ... ... ... ... ... ... ... 11/28/2010 19 + 5 42.6 168.3 135.5 30.7 29.3 263g , 0 lbs 9 ozs 11th%% 01/30/2011 28 + 5 74.7 282.0 254.3 52.6 48.2 1359g , 3 lbs 0 ozs 56th%% Procedure Note 01/30/2011 Indication: Maternal disease: Diabetes, pregestational. Maternal age (35 years). Chronic hypertension. History: Age: 35 years. Maternal age at EDC: 36 years. : 2 Para: 1. Previous pregnancies: Children born at term: 1. Living children: 1. Dating: Stated EDC: EDC: 04/19/2011 GA by stated EDC: 28w5d Current Scan on: 01/30/2011 EDC: 04/15/2011 GA by current scan: 29w2d Best Overall Assessment: 01/30/2011 EDC: 04/19/2011 Assessed GA: 28w5d The calculation of the gestational age by current scan was based on BPD, HC, AC, FL and HUM. The Best Overall Assessment is based on the stated EDC. General Evaluation: heart activity: Present. heart rate: 156 bpm. Presentation: variable, Head on maternal right. movement: visible. Amniotic Fluid: Normal. POOL 10.1 cm. Placenta: Anterior fundal. Placenta Grade: Grade 1. Structure: normal. Anatomy Scan: Rousseau gestation. Biometry: BPD 74.7 mm 77th% 30w0d (29w2d to 30w5d) HC 282.0 mm 82nd% 30w6d (28w0d to 33w6d) AC 254.3 mm 68th% 29w4d (28w6d to 30w2d) FL 52.6 mm 17th% 28w0d (25w6d to 30w1d) OFD 100.6 mm 85th% 30w1d HUM 48.2 mm 34th% 28w1d VENTRp 8.3 mm n/a HC/AC Ratio 1.109 61st% FL/AC Ratio 0.207 n/a BPD/FL Ratio 1.420 59th% BPD/OFD Ratio 0.743 9th% EFW (lbs/oz) 3 lbs 0 ozs EFW (g) 1359 g 56th% Anatomy: Head: head shape appears normal. Gastrointestinal Tract: Stomach appears normal. Kidneys / Adrenal Glands: Bilateral kidneys appear normal. Bladder: bladder appears normal in size and shape. Summary of Ultrasound Findings: Transabdominal US. U/S machine: [employer] e[employer]. U/S view: limited by adiposity. Report Summary: Impression: [id number] Follow-up obstetrical ultrasound This is a rousseau gestation. biometry is consistent with prior dating. The EFW is about 50% on the [place] hybrid curve. Except where noted above, the anatomy was not reviewed in detail as this is a follow-up study and the anatomy was previously assessed. Normal fluid and movement are noted. Recommendations: We recommend repeat evaluation for growth assessment monthly until delivery. This follow-up has not been scheduled. Growth Overview: Date GA BPD [mm] HC [mm] AC [mm] FL [mm] HUM [mm] EFW GP 09/26/2010 10 + 5 ... ... ... ... ... ... ... 11/28/2010 19 + 5 42.6 168.3 135.5 30.7 29.3 263g , 0 lbs 9 ozs 11th%% 01/30/2011 28 + 5 74.7 282.0 254.3 52.6 48.2 1359g , 3 lbs 0 ozs 56th%% Kelsi Chambers MD [facility] ORDERABLE S documented in this encounter Visit Diagnoses Diagnosis Previous section Other postprocedural status HTN (hypertension) Unspecified essential hypertension Asthma Unspecified asthma Hypothyroid Unspecified hypothyroidism Diabetes ([facility]) Type II or unspecified type diabetes mellitus without mention of complication, not stated as uncontrolled Status post gastric bypass for obesity Bariatric surgery status with other poor obstetric history(V23.49) with other poor obstetric history documented in this encounter Care Teams Morning Nanny Relationship Specialty Start Date End Date Phylicia Brown NP [address] [place] [address] PCP - General 09/19/10 11/20/13 documented as of this encounter
--- OUTSIDE RECORDS SUMMARY | 2024-04-22 04:29 | XMS_ITS | Encounter Summary ---
Author Organization [facility] Address [address] [place] [address] Care Team Providers Care Frame Bender Name Role Phone Stephanie Phylicia ONCOLOGY PATIENT NAVIGATOR Primary Care Provider Encounter Details Date Type Department Care Team (Late st Contact Info) Description 02/13/2011 Results Only Imaging [facility] Obstetrics & Midwifery - [address] [address] Viet Vann MD [address] [facility], [address] [place] [phone] Social History Tobacco Use Types Packs/Day Years [...] Info) Description 05/17/2024 13:00 EDT Office Visit [facility] Endocrinology - [address] [address] Twyla Mcclellan NP [address] [place] [address] [address] [place] [phone] 08/30/2024 14:00 EST Office Visit [facility] Endocrinology - [address] [address] Twyla Mcclellan, ONCOLOGY PATIENT NAVIGATOR [address] [phone] documented as of this encounter Procedures Procedure Name Priority Date/Time Associated Diagnosis Comments PENITENTIARY BIOPHYSICAL PROFILE 03/12/2011 16:24 EDT documented in this encounter Results * PENITENTIARY BIOPHYSICAL PROFILE (03/12/2011 16:24 EDT) Anatomical Region Laterality Modality Other 03/12/2011 16:2 4 EDT 03/12/2011 16:39 EDT Narrative 03/12/2011 16:39 EDT Indication: Maternal disease: Diabetes, pregestational. Maternal age (36 years). History: Age: 36 years. Maternal age at EDC: 36 years. : 2 Para: 1. Previous pregnancies: Children born at term: 1. Living children: 1. Current : Pre- data: Weight 236 lbs. Height 5 ft 7 ins. BMI 37.0. Medical History: Diabetes Mellitus: Classification: Diabetic Type 1, Dating: Stated EDC: ??EDC: 04/19/2011 GA by stated EDC: 34w4d Best Overall Assessment: 03/12/2011 EDC: 04/19/2011 Assessed GA: 34w4d The Best Overall Assessment is based on the stated EDC. General Evaluation: heart activity: Present. heart rate: 141 bpm. Presentation: cephalic. movement: visible. Amniotic Fluid: Normal. POOL ??13.6 cm. Maximal vertical pocket 6.8 cm. Placenta: Anterior. Placenta Grade: Grade 2. Structure: normal. Anatomy Scan: Rousseau gestation. Anatomy: Gastrointestinal Tract: Stomach appears normal. Kidneys / Adrenal Glands: Bilateral kidneys appear normal. Bladder: bladder appears normal in size and shape. Summary of Ultrasound Findings: Transabdominal US. U/S machine: [employer] e8. U/S view: good. Wellbeing Assessment: Amniotic fluid: Normal. POOL: 13.6 cm. MVP: 6.8 cm. Q1: 6.8 cm. Q2: 1.2 cm. Q3: 3.5 cm. Q4: 2.1 cm. Non Stress Test: reactive. heart rate: 150 bpm. Biophysical Profile: body movements: normal (2), tone: normal (2), breathing movements: normal (2), Amniotic fluid volume: normal (2), Non-stress test: Reactive (2). Score 10 / 10. Report Summary: Impression: 25331 Biophysical Profile (including NST) This is a rousseau gestation. See BPP score above. Recommendations: Follow-up with weekly BPP's and growth every 4 weeks. This follow-up has been scheduled. Growth Overview: [...] ... ... ... ... ... ... ... External image archive: DVD: No: 552. Bdr: Laura White RDMS Procedure Note 03/12/2011 Indication: Maternal disease: Diabetes, pregestational. Maternal age (36 years). History: Age: 36 years. Maternal age at EDC: 36 years. : 2 Para: 1. Previous pregnancies: Children born at term: 1. Living children: 1. Current : Pre- data: Weight 236 lbs. Height 5 ft 7 ins. BMI 37.0. Medical History: Diabetes Mellitus: Classification: Diabetic Type 1, Dating: Stated EDC: EDC: 04/19/2011 GA by stated EDC: 34w4d Best Overall Assessment: 03/12/2011 EDC: 04/19/2011 Assessed GA: 34w4d The Best Overall Assessment is based on the stated EDC. General Evaluation: heart activity: Present. heart rate: 141 bpm. Presentation: cephalic. movement: visible. Amniotic Fluid: Normal. POOL 13.6 cm. Maximal vertical pocket 6.8 cm. Placenta: Anterior. Placenta Grade: Grade 2. Structure: normal. Anatomy Scan: Rousseau gestation. Anatomy: Gastrointestinal Tract: Stomach appears normal. Kidneys / Adrenal Glands: Bilateral kidneys appear normal. Bladder: bladder appears normal in size and shape. Summary of Ultrasound Findings: Transabdominal US. U/S machine: [employer] e8. U/S view: good. Wellbeing Assessment: Amniotic fluid: Normal. POOL: 13.6 cm. MVP: 6.8 cm. Q1: 6.8 cm. Q2: 1.2 cm. Q3: 3.5 cm. Q4: 2.1 cm. Non Stress Test: reactive. heart rate: 150 bpm. Biophysical Profile: body movements: normal (2), tone: normal (2), breathing movements: normal (2), Amniotic fluid volume: normal (2), Non-stress test: Reactive (2). Score / . Report Summary: Impression: 49707 Biophysical Profile (including NST) This is a rousseau gestation. See BPP score above. Recommendations: Follow-up with weekly BPP's and growth every 4 weeks. This follow-up has been scheduled. Growth Overview: [...] ... ... ... ... ... ... ... External image archive: DVD: No: 552. Bdr: Laura White RDMS Viet Vann MD [facility] ORDER [place]WE[place] documented in this encounter Visit Diagnoses Not on filedocumented in this encounter Care Teams Frame Bender Relationship Specialty Start Date End Date Phylicia Brown NP [address] [place] [address] PCP - General 09/19/10 11/20/13 documented as of this encounter
--- OUTSIDE RECORDS SUMMARY | 2024-04-22 04:29 | XMS_ITS | Encounter Summary ---
Author Organization [facility] Address [address] [place] [address] Care Team Providers Care Bar Examiner Name Role Phone RossAll Phylicia DIABETES CLINICAL MANAGER Primary Care Provider Encounter Details Date Type Department Care Team (Late st Contact Info) Description 02/11/2011 Orders Only [facility] Women's Services - [address] [phone] Ashley Rojas, HARPREET Supervision of high-risk (Primary [...] [facility] Endocrinology - [address] [phone] Twyla Mcclellan NP [address] [place] [address] [place] [phone] 08/30/2024 14:00 EST Office Visit [facility] Endocrinology [address] [address] Twyla Mcclellan NP [address] [place] [phone] documented as of this encounter Procedures Procedure Name Priority Date/Time Associated Diagnosis Comments [facility] FOLLOW-UP 02/27/2011 14:28 EDT documented in this encounter Results * [facility] FOLLOW-UP (02/27/2011 14:28 EDT) Anatomical Region Laterality Modality Other 02/27/2011 14:2 8 EDT 02/27/2011 16:54 EDT Narrative 02/27/2011 16:54 EDT Indication: Maternal disease: Diabetes, pregestational Type [...] EDC: ??EDC: 04/19/2011 GA by stated EDC: 32w5d Earlier Assessment on: 09/13/2010 EDC: 04/19/2011 GA by earlier assessment: 32w5d Current Scan on: 02/27/2011 EDC: 04/11/2011 GA by current scan: 33w6d Best Overall Assessment: 02/27/2011 EDC: 04/19/2011 Assessed GA: 32w5d The calculation of the gestational age by current scan was based on BPD, HC, AC, FL and HUM. The Best Overall Assessment is based on an earlier assessment on 09/13/2010. General Evaluation: heart activity: Present. heart rate: 142 bpm. Presentation: cephalic, Spine right. movement: visible. Amniotic Fluid: polyhydramnios. POOL ??28.6 cm. Maximal vertical pocket 9.1 cm. Placenta: Anterior right. Placenta Grade: Grade 1. Structure: normal. Anatomy Scan: Rousseau gestation. Biometry: BPD 86.9 mm 95th% 35w1d (34w0d to 36w1d) HC 292.5 mm 8th% 32w2d (29w2d to 35w2d) AC 307.2 mm 93rd% 34w5d (33w5d to 35w5d) FL 66.2 mm 75th% 34w1d (31w1d to 37w0d) OFD 98.0 mm <5th% 29w3d HUM 56.2 mm 56th% 33w1d HC/AC Ratio 0.952 ??6th% FL/AC Ratio 0.215 ??n/a BPD/FL Ratio 1.313 ??16th% BPD/OFD Ratio 0.887 ??>95th% EFW (lbs/oz) 5 lbs 4 ozs EFW (g) 2394 g ??85th% Anatomy: Head: head shape appears normal. Brain: Cerebellum, choroid plexus, cisterna magna, lateral cerebral ventricles, midline falx and cavum septi pellucidi appear normal. Gastrointestinal Tract: Stomach appears normal. Kidneys / Adrenal Glands: Bilateral kidneys appear normal. Bladder: bladder appears normal in size and shape. Summary of Ultrasound Findings: Transabdominal US. U/S machine: [employer]. U/S view: good. Wellbeing Assessment: Amniotic fluid: polyhydramnios. POOL: 28.6 cm. MVP: 9.1 cm. Q1: 9.1 cm. Q2: 9.1 cm. Q3: 7.2 cm. Q4: 3.2 cm. Biophysical Profile: body movements: abnormal (0), tone: normal (2), breathing movements: normal (2), Amniotic fluid volume: normal (2), Non-stress test: Reactive (2). Score 8 / 10. Report Summary: Impression: [id number] Follow-up obstetrical ultrasound This is a rousseau gestation. biometry is consistent with prior dating. The EFW is about 85% on the [place] hybrid curve. Except where noted above, the anatomy was not reviewed in detail as this is a follow-up study and the anatomy was previously assessed. Normal fluid and movement are noted. [id number] Biophysical Profile (including NST) This is a rousseau gestation. THIS STUDY IS ON DVD #399. See BPP score above. Recommendations: Follow-up with weekly BPP''s growth every 4 weeks. This follow-up has been scheduled. Addendum Begins Indication: Maternal disease: Diabetes, pregestational Type 1. [...] EDC: ??EDC: 04/19/2011 GA by stated EDC: 32w5d Earlier Assessment on: 09/13/2010 EDC: 04/19/2011 GA by earlier assessment: 32w5d Current Scan on: 02/27/2011 EDC: 04/11/2011 GA by current scan: 33w6d Best Overall Assessment: 02/27/2011 EDC: 04/19/2011 Assessed GA: 32w5d The calculation of the gestational age by current scan was based on BPD, HC, AC, FL and HUM. The Best Overall Assessment is based on an earlier assessment on 09/13/2010. General Evaluation: heart activity: Present. heart rate: 142 bpm. Presentation: cephalic, Spine right. movement: visible. Amniotic Fluid: polyhydramnios. POOL ??28.6 cm. Maximal vertical pocket 9.1 cm. Placenta: Anterior right. Placenta Grade: Grade 1. Structure: normal. Anatomy Scan: Rousseau gestation. Biometry: BPD 86.9 mm 95th% 35w1d (34w0d to 36w1d) HC 292.5 mm 8th% 32w2d (29w2d to 35w2d) AC 307.2 mm 93rd% 34w5d (33w5d to 35w5d) FL 66.2 mm 75th% 34w1d (31w1d to 37w0d) OFD 98.0 mm <5th% 29w3d HUM 56.2 mm 56th% 33w1d HC/AC Ratio 0.952 ??6th% FL/AC Ratio 0.215 ??n/a BPD/FL Ratio 1.313 ??16th% BPD/OFD Ratio 0.887 ??>95th% EFW (lbs/oz) 5 lbs 4 ozs EFW (g) 2394 g ??85th% Anatomy: Head: head shape appears normal. Brain: Cerebellum, choroid plexus, cisterna magna, lateral cerebral ventricles, midline falx and cavum septi pellucidi appear normal. Gastrointestinal Tract: Stomach appears normal. Kidneys / Adrenal Glands: Bilateral kidneys appear normal. Bladder: bladder appears normal in size and shape. Summary of Ultrasound Findings: Transabdominal US. U/S machine: [employer] 9. U/S view: good. Wellbeing Assessment: Amniotic fluid: polyhydramnios. POOL: 28.6 cm. MVP: 9.1 cm. Q1: 9.1 cm. Q2: 9.1 cm. Q3: 7.2 cm. Q4: 3.2 cm. Biophysical Profile: body movements: abnormal (0), tone: normal (2), breathing movements: normal (2), Amniotic fluid volume: normal (2), Non-stress test: Reactive (2). Score 8 / 10. Report Summary: Impression: 07853 Follow-up obstetrical ultrasound This is a rousseau gestation. biometry is consistent with prior dating. The EFW is about 85% on the [place] hybrid curve. Except where noted above, the anatomy was not reviewed in detail as this is a follow-up study and the anatomy was previously assessed. Polyhydramnios is noted on today's evaluation. Normal fluid and movement are noted. 00783 Biophysical Profile (including NST) This is a rousseau gestation. THIS STUDY IS ON DVD #399. See BPP score above. Recommendations: Follow-up with weekly BPP's and growth every 4 weeks. This follow-up has been scheduled. Addendum Ends Procedure Note 02/27/2011 Indication: Maternal disease: Diabetes, pregestational Type 1. [...] EDC: EDC: 04/19/2011 GA by stated EDC: 32w5d Earlier Assessment on: 09/13/2010 EDC: 04/19/2011 GA by earlier assessment: 32w5d Current Scan on: 02/27/2011 EDC: 04/11/2011 GA by current scan: 33w6d Best Overall Assessment: 02/27/2011 EDC: 04/19/2011 Assessed GA: 32w5d The calculation of the gestational age by current scan was based on BPD, HC, AC, FL and HUM. The Best Overall Assessment is based on an earlier assessment on 09/13/2010. General Evaluation: heart activity: Present. heart rate: 142 bpm. Presentation: cephalic, Spine right. movement: visible. Amniotic Fluid: polyhydramnios. POOL 28.6 cm. Maximal vertical pocket 9.1 cm. Placenta: Anterior right. Placenta Grade: Grade 1. Structure: normal. Anatomy Scan: Rousseau gestation. Biometry: BPD 86.9 mm 95th% 35w1d (34w0d to 36w1d) HC 292.5 mm 8th% 32w2d (29w2d to 35w2d) AC 307.2 mm 93rd% 34w5d (33w5d to 35w5d) FL 66.2 mm 75th% 34w1d (31w1d to 37w0d) OFD 98.0 mm <5th% 29w3d HUM 56.2 mm 56th% 33w1d HC/AC Ratio 0.952 6th% FL/AC Ratio 0.215 n/a BPD/FL Ratio 1.313 16th% BPD/OFD Ratio 0.887 >95th% EFW (lbs/oz) 5 lbs 4 ozs EFW (g) 2394 g 85th% Anatomy: Head: head shape appears normal. Brain: Cerebellum, choroid plexus, cisterna magna, lateral cerebral ventricles, midline falx and cavum septi pellucidi appear normal. Gastrointestinal Tract: Stomach appears normal. Kidneys / Adrenal Glands: Bilateral kidneys appear normal. Bladder: bladder appears normal in size and shape. Summary of Ultrasound Findings: Transabdominal US. U/S machine: [employer]. U/S view: good. Wellbeing Assessment: Amniotic fluid: polyhydramnios. OPOL: 28.6 cm. MVP: 9.1 cm. Q1: 9.1 cm. Q2: 9.1 cm. Q3: 7.2 cm. Q4: 3.2 cm. Biophysical Profile: body movements: abnormal (0), tone: normal (2), breathing movements: normal (2), Amniotic fluid volume: normal (2), Non-stress test: Reactive (2). Score 8 / 10. Report Summary: Impression: [id number] Follow-up obstetrical ultrasound This is a rousseau gestation. biometry is consistent with prior dating. The EFW is about 85% on the [place] hybrid curve. Except where noted above, the anatomy was not reviewed in detail as this is a follow-up study and the anatomy was previously assessed. Normal fluid and movement are noted. 36106 Biophysical Profile (including NST) This is a rousseau gestation. THIS STUDY IS ON DVD #399. See BPP score above. Recommendations: Follow-up with weekly BPP''s growth every 4 weeks. This follow-up has been scheduled. Addendum Begins Indication: Maternal disease: Diabetes, pregestational Type 1. [...] EDC: EDC: 04/19/2011 GA by stated EDC: 32w5d Earlier Assessment on: 09/13/2010 EDC: 04/19/2011 GA by earlier assessment: 32w5d Current Scan on: 02/27/2011 EDC: 04/11/2011 GA by current scan: 33w6d Best Overall Assessment: 02/27/2011 EDC: 04/19/2011 Assessed GA: 32w5d The calculation of the gestational age by current scan was based on BPD, HC, AC, FL and HUM. The Best Overall Assessment is based on an earlier assessment on 09/13/2010. General Evaluation: heart activity: Present. heart rate: 142 bpm. Presentation: cephalic, Spine right. movement: visible. Amniotic Fluid: polyhydramnios. POOL 28.6 cm. Maximal vertical pocket 9.1 cm. Placenta: Anterior right. Placenta Grade: Grade 1. Structure: normal. Anatomy Scan: Rousseau gestation. Biometry: BPD 86.9 mm 95th% 35w1d (34w0d to 36w1d) HC 292.5 mm 8th% 32w2d (29w2d to 35w2d) AC 307.2 mm 93rd% 34w5d (33w5d to 35w5d) FL 66.2 mm 75th% 34w1d (31w1d to 37w0d) OFD 98.0 mm <5th% 29w3d HUM 56.2 mm 56th% 33w1d HC/AC Ratio 0.952 6th% FL/AC Ratio 0.215 n/a BPD/FL Ratio 1.313 16th% BPD/OFD Ratio 0.887 >95th% EFW (lbs/oz) 5 lbs 4 ozs EFW (g) 2394 g 85th% Anatomy: Head: head shape appears normal. Brain: Cerebellum, choroid plexus, cisterna magna, lateral cerebral ventricles, midline falx and cavum septi pellucidi appear normal. Gastrointestinal Tract: Stomach appears normal. Kidneys / Adrenal Glands: Bilateral kidneys appear normal. Bladder: bladder appears normal in size and shape. Summary of Ultrasound Findings: Transabdominal US. U/S machine: [employer]. U/S view: good. Wellbeing Assessment: Amniotic fluid: polyhydramnios. POOL: 28.6 cm. MVP: 9.1 cm. Q1: 9.1 cm. Q2: 9.1 cm. Q3: 7.2 cm. Q4: 3.2 cm. Biophysical Profile: body movements: abnormal (0), tone: normal (2), breathing movements: normal (2), Amniotic fluid volume: normal (2), Non-stress test: Reactive (2). Score 8 / 10. Report Summary: Impression: 71055 Follow-up obstetrical ultrasound This is a rousseau gestation. biometry is consistent with prior dating. The EFW is about 85% on the [place] hybrid curve. Except where noted above, the anatomy was not reviewed in detail as this is a follow-up study and the anatomy was previously assessed. Polyhydramnios is noted on today's evaluation. Normal fluid and movement are noted. 34791 Biophysical Profile (including NST) This is a rousseau gestation. THIS STUDY IS ON DVD #399. See BPP score above. Recommendations: Follow-up with weekly BPP's and growth every 4 weeks. This follow-up has been scheduled. Addendum Ends Viet Vann MD [facility] ORDER MAXWELL documented in this encounter Visit Diagnoses Diagnosis Supervision of high-risk - Primary Unspecified high-risk documented in this encounter Care Teams Bar Examiner Relationship Specialty Start Date End Date Phylicia Brown NP [address] [place] [id number] PCP - General 09/19/10 11/20/13 documented as of this encounter
--- OUTSIDE RECORDS SUMMARY | 2024-04-22 04:29 | XMS_ITS | Encounter Summary ---
Author Organization [facility] Address [address] [place] [address] Care Team Providers Care Log Sorting Supervisor Name Role Phone Phylicia Brown MANAGER PROTEIN Primary Care Provider Encounter Details Date Type Department Care Team (Late st Contact Info) Description 02/27/2011 Results Only [facility] [phone] Point, Of Care User [address] [place] [address] Social History Tobacco Use Types Packs/Day Years [...] Info) Description 05/17/2024 13:00 EDT Office Visit [facility] Endocrinology [address] [address] Twyla Mcclellan NP [address] [place] [phone] 08/30/2024 14:00 EST Office Visit [address] [phone] Twyla Mcclellan NP [address] [place] [phone] documented as of this encounter Procedures Procedure Name Priority Date/Time Associated Diagnosis Comments POCT URINALYSIS Routine 02/27/2011 15:03 EDT documented in this encounter Results * (ABNORMAL) POCT URINALYSIS (02/27/2011 15:03 EDT) Color YELLOW [facility] Clarity, UA Clear [facility] Glucose 2+(A) NEG [facility] Bilirubin Neg NEG [facility] Ketones 1+(A) NEG [facility] Specific [place] >=1.030 1.001 - 1.035 [facility] Blood Neg NEG [facility] pH 5.5 4.6 - 8.0 [facility] Protein Neg NEG [facility] Urobilinogen 0.2 0.2 - 1.0 E.U./dl [facility] Nitrite Neg NEG [facility] Leuk Esterase Neg NEG [facility] MIN medical information officer ID [id number] Test performed at [facility] 02/27/2011 15:0 3 EDT 02/27/2011 15:08 EDT Of Care User Point POINT OF CARE TEST O RDERABLES Performing Organization Address City/State/[facility] Co de Phone Number [facility] [address] [place] [address] documented in this encounter Visit Diagnoses Not on filedocumented in this encounter Care Teams Log Sorting Supervisor Relationship Specialty Start Date End Date Phylicia Brown NP [address] [place] [id number] PCP - General 09/19/10 11/20/13 documented as of this encounter
--- OUTSIDE RECORDS SUMMARY | 2024-04-22 04:29 | XMS_ITS | Encounter Summary ---
Author Organization [facility] Address [address] [place] [address] Care Team Providers Care Assembler Piano Name Role Phone CodyAllPhylicia SACHIN Primary Care Provider Reason for Visit * Reason Comments Routine Visit Encounter Details Date Type Department Care Team (Late st Contact Info) Description 11/11/2010 12:45 EST Routine [facility] Obstetrics & Midwifery - [facility] [address] [place], [place] [phone] Hemant Powell MD [address] [facility], Level 4 [place] [address] GA: 17w2d Social History Tobacco Use Types Packs/Day Years Used Date Smoking Tobacco: Former Cigarettes Q uit: 09/26/2003 Comments Yes Sex and Gender Information Value Date Recorded Sex Assigned at Not on file Gender Identity Not on file Sexual Orientation Not on file documented as of this encounter Last Filed Vital Signs Vital Sign Reading Time Taken Comments Blood Pressure 140/76 11/11/2010 1200 EST Pulse - - Temperature - - Respiratory Rate - - Oxygen Saturation - - Inhaled Oxygen Concentration - - Weight 99.6 kg (219 lb 9.6 oz) 11/11/[address] Height - - Body Mass Index 34.79 11/11/2010 0907 EST documented in this encounter Progress Notes * Autumn Ojeda - 11/11/2010 1257 EST CC: Type II DM, CHTN S: Feeling well. Saw her GI/Commercial Esc[employer] Assistant today, vitamins checked and labs. They suggested to stop Synthroid, repeat labs in january. Denies cramping. No VB for several weeks. +flutters. Has had a URI/sinus infection lately, took a course of Amoxicillin, seeing PCP this pm. O: Blood pressure 140/76, weight 99.61 kg (219 lb 9.6 oz). FHT: 130's A/P: 35 yo @ 17+2 wks by 10+5 wk U/S here for APV. Diabetes - AUTUMN OJEDA MD 11/11/10 1320 Addended Feels that she's doing well, FS's a little high b/c of ?sinus infection [place] in the 80s, PP <110 after BF, higher after lunch. Has Endocrine appt on . Detailed scan scheduled. - echo ordered Hypothyroid - AUTUMN OJEDA MD 11/11/10 1320 Addended Told to stop Synthroid today, discussed that would keep going on her current dose, repeat labs in January HTN (hypertension) - AUTUMN OJEDA MD 11/11/10 1320 Addended Elevated today, but at home is <130/70s. Will monitor. 24 hr urine neg Previous section - AUTUMN OJEDA MD 11/11/10 1319 Signed Wants repeat section, tubal. Certain in this decision RTC 4 wks MFMS Attending I saw and examined the patient. I agree with impression and plan as noted above. I spent 15 minuteswith the pt 15 min>50% in discussion of the plan as above. Disc DM: good control Disc bp; likely CHTN, had baseline 24 hr Wants tubal: too early to sign; needs tubal papers signed after 20 wks Hemant Powell MD documented in this encounter Miscellaneous Notes * Assessment & Plan Note - Autumn Ojeda - 11/11/2010 1319 ESTAssociated Problem(s): History of section Wants repeat section, tubal. Certain in this decision * Assessment & Plan Note - Autumn Ojeda - 11/11/2010 1302 ESTAssociated Problem(s): Hypertensive disorder Elevated today, but at home is <130/70s. Will monitor. 24 hr urine neg * Assessment & Plan Note - Autumn Ojeda - 11/11/2010 1300 ESTAssociated Problem(s): Hypothyroidism Told to stop Synthroid today, discussed that would keep going on her current dose, repeat labs in January * Assessment & Plan Note - Autumn Ojeda - 11/11/2010 1300 ESTAssociated Problem(s): Diabetes mellitus ([facility]) Feels that she's doing well, FS's a little high b/c of ?sinus infection [place] in the 80s, PP <110 after BF, higher after lunch. Has Endocrine appt on . Detailed scan scheduled. - echo ordered documented in this encounter Plan of Treatment Upcoming Encounters Date Type Department Care Team (Late st Contact Info) Description 05/17/2024 13:00 EDT Office Visit [facility] Endocrinology [address] [address] Twyla Mcclellan NP [address] [place] [address] [place] [phone] 08/30/2024 14:00 EST Office Visit [facility] Endocrinology [address] [address] Twyla Mcclellan NP [address] [place] [phone] documented as of this encounter Procedures Procedure Name Priority Date/Time Associated Diagnosis Comments [facility] ECHOCARDIOGRAM (PEDI CARD) Routine 12/18/2010 12:30 EDT Diabetes ([facility] ([facility]) documented in this encounter Results * [facility] ECHOCARDIOGRAM (PEDI CARD) (12/18/2010 12:30 EDT) Anatomical Region Laterality Modality Other 12/18/2010 12:3 0 EDT Narrative 12/18/2010 13:07 EDT Patient Name: LINDA STEWART Chart Number: [id number] Site Location: Date of Appt: November, 12:30 PM Echocardiogram Report Demographics and Visit Data: Due Date: 19-Apr-2011. ??Gestational age (weeks): 22.71. ?? : 1975. ??Age: 35y/9m/26d. ??Patient location: [facility]. ?? Reason for test: 250.77-THRYZMDC-Z7 35 yo type II DM, CHTN, s/p gastric bypass surgery. ?? Person requesting test: HEMANT POWELL MD ??Procedure Description: [facility] ECHOCARDIOGRAM (PEDI CARD). ?? echocardiogram at 22 weeks gestation. Normal chamber size and function. Normal arterial and venous connections. Normal Doppler study. No arrhythmias noted during the exam. No evidence of hydrops. The results of the study, its limitations and the limitations of echocardiography in general were reviewed. The inability to diagnose patent ductus arteriosus, some atrial defects, ventricular septal defects and coarctation was discussed. Further echocardiography is not recommended unless new concerns arise. Findings: ?? Veins and Atria: ?? >> Patent foramen ovale Right to left flow. ?? >> Normal Left Atrium >> Normal Right Atrium >> Normal Pulmonary venous connections At least one pulmonary vein is seen entering from each side. ?? >> Normal Systemic Veins ?? A-V Canal: ?? >> Normal Tricuspid Valve >> Normal Mitral Valve ?? Ventricles: ?? >> Left ventricular dysfunction, ruled out >> Right ventricular dysfunction global, ruled out ?? Conotruncus: ?? >> Normal Pulmonary Valve >> Normal Aortic Valve ?? Great Arteries: ?? >> Patent ductus arteriosus Right to left flow. ?? >> Normal Pulmonary Artery >> Normal Aorta >> Normal Aortic Arch ?? Pericardium: ?? >> Pericardial effusion, ruled out ?? Other: ?? >> echo ?? Measures: ?? Mitral Valve: ?? Name ?Value ?Units ?Z-Score ?Min ?Max ?? Mitral Annulus Diameter ? 0.54 ? cm ? -0.6 ? 0.45 ?? 0.71 ?? MV Area ? 0.23 ? cm 2 ? Tricuspid Valve: ?? Name ?Value ?Units ?Z-Score ?Min ?Max ?? Tricuspid Annulus ? 0.54 ? cm ? -0.85 ?0.46 ?? 0.75 ?? Diameter TV Area ? 0.23 ? cm 2 ? Longford's Name: NATALIE HURTADO MD Date/time of reading: Dec 18 2010 - 1:06:13 PM Report created at 1:08:00 PM on November Report Number: Note:Study interpreted at [facility] unless otherwise noted Procedure Note 12/18/2010 Patient Name: LINDA STEWART Chart Number: [id number] Site Location: Date of Appt: November, 12:30 PM Echocardiogram Report Demographics and Visit Data: Due Date: 19-Apr-2011. Gestational age (weeks): 22.71. : 1975. Age: 35y/9m/26d. Patient location: [facility]. Reason for test: 250.95-[id number]-A0 35 yo type II DM, CHTN, s/p gastric bypass surgery. Person requesting test: HEMANT POWELL MD. Procedure Description: [facility] ECHOCARDIOGRAM (PEDI CARD). echocardiogram at 22 weeks gestation. Normal chamber size and function. Normal arterial and venous connections. Normal Doppler study. No arrhythmias noted during the exam. No evidence of hydrops. The results of the study, its limitations and the limitations of echocardiography in general were reviewed. The inability to diagnose patent ductus arteriosus, some atrial defects, ventricular septal defects and coarctation was discussed. Further echocardiography is not recommended unless new concerns arise. Findings: Veins and Atria: >> Patent foramen ovale Right to left flow. >> Normal Left Atrium >> Normal Right Atrium >> Normal Pulmonary venous connections At least one pulmonary vein is seen entering from each side. >> Normal Systemic Veins A-V Canal: >> Normal Tricuspid Valve >> Normal Mitral Valve Ventricles: >> Left ventricular dysfunction, ruled out >> Right ventricular dysfunction global, ruled out Conotruncus: >> Normal Pulmonary Valve >> Normal Aortic Valve Great Arteries: >> Patent ductus arteriosus Right to left flow. >> Normal Pulmonary Artery >> Normal Aorta >> Normal Aortic Arch Pericardium: >> Pericardial effusion, ruled out Other: >> echo Measures: Mitral Valve: Name Value Units Z-Score Min Max Mitral Annulus Diameter 0.54 cm -0.6 0.45 0.71 MV Area 0.23 cm 2 Tricuspid Valve: Name Value Units Z-Score Min Max Tricuspid Annulus 0.54 cm -0.85 0.46 0.75 Diameter TV Area 0.23 cm 2 Longford's Name: NATALIE HURTADO MD Date/time of reading: Dec 18 2010 - 1:06:13 PM Report created at 1:08:00 PM on November Report Number: Note:Study interpreted at [facility] unless otherwise noted Hemant Powell MD CARDIAC ECHO ORDERAB LES documented in this encounter Visit Diagnoses Diagnosis Previous section Other postprocedural status HTN (hypertension) Unspecified essential hypertension Asthma Unspecified asthma Hypothyroid Unspecified hypothyroidism Diabetes ([facility]) Type II or unspecified type diabetes mellitus without mention of complication, not stated as uncontrolled Status post gastric bypass for obesity Bariatric surgery status with other poor obstetric history(V23.49) with other poor obstetric history documented in this encounter Discontinued Medications Medication Sig Discontinue Reason Start Date End Da te levothyroxine (SYNTHROID) 25 mcg tablet Take 25 mcg by mouth daily. Discontinued by another clinician 11/11/2010 documented as of this encounter Care Teams Assembler Piano Relationship Specialty Start Date End Date Phylicia Brown NP [address] [place] [phone] PCP - General 09/19/10 11/20/13 documented as of this encounter
--- OUTSIDE RECORDS SUMMARY | 2024-04-22 04:29 | XMS_ITS | Encounter Summary ---
Author Organization [facility] Address [address] [place] [address] Care Team Providers Care Service Desk Agent Name Role Phone Phylicia Brown SACHIN Primary Care Provider Reason for Visit * Reason Comments Routine Visit Pt. reports feeli ng well, +FM. Pt. denies VB/LOF, ctx. Encounter Details Date Type Department Care Team (Late st Contact Info) Description 02/27/2011 14:15 EDT Routine [facility] Obstetrics & Midwifery - [address] [phone] Susi Powell MD [address] [place] [address], [address] [place] [address] GA: 32w5d Social History Tobacco Use Types Packs/Day Years Used Date Smoking Tobacco: Former Cigarettes Q uit: 09/26/2003 Comments Yes Sex and Gender Information Value Date Recorded Sex Assigned at Not on file Gender Identity Not on file Sexual Orientation Not on file documented as of this encounter Last Filed Vital Signs Vital Sign Reading Time Taken Comments Blood Pressure 122/80 02/27/2011 1434 EDT Pulse - - Temperature - - Respiratory Rate - - Oxygen Saturation - - Inhaled Oxygen Concentration - - Weight 110.8 kg (244 lb 3.2 oz) 02/27/2011 1434 EDT Height - - Body Mass Index 38.24 01/09/2011 1200 EDT documented in this encounter Progress Notes * Susi Powell MD - 02/27/2011 1502 EDT Pt without c/o' no bleeding leaking contrax Status Post Gastric Bypass for Obesity - Susi Powell MD 02/27/11 1459 Signed Pt toleriating po well HTN (hypertension) - Susi Powell MD 02/27/11 1459 Signed bp stable Diabetes - Susi Powell MD 02/27/11 1501 Signed Follows in endo; fbs 70-90; 2 hrts pp running generally <120 Started weekkly BPP ; add NST will try at [facility] Previous section - Susi Powell MD 02/27/11 1502 Signed Need to schedule repeat ; declined amnio; will schedule for 39 wks with tubal plan: Weekly visit Will try to schedule nst with gabo- pt says he will help Will schedule cesaran btl at 39 wks Susi Powell MD documented in this encounter Miscellaneous Notes * Assessment & Plan Note - Susi Powell MD - 02/27/2011 1502 EDTAssociated Problem(s): History of section Need to schedule repeat ; declined amnio; will schedule for 39 wks with tubal * Assessment & Plan Note - Susi Powell MD - 02/27/2011 1501 EDTAssociated Problem(s): Diabetes mellitus ([facility]) Follows in endo; fbs 70-90; 2 hrts pp running generally <120 Started weekkly BPP ; add NST will try at [facility] * Assessment & Plan Note - Susi Powell MD - 02/27/2011 1459 EDTAssociated Problem(s): Hypertensive disorder bp stable * Assessment & Plan Note - Susi Poewll MD - 02/27/2011 1459 EDTAssociated Problem(s): Status post gastric bypass for obesity Pt toleriating po well documented in this encounter Plan of Treatment Upcoming Encounters Date Type Department Care Team (Late st Contact Info) Description 05/17/2024 13:00 EDT Office Visit [facility] Endocrinology - [address] [address] Twyla Mcclellan NP [address] [place] [phone] 08/30/2024 14:00 EST Office Visit [address] [address] Twyla Mcclellan NP [address] [place] [phone] documented as of this encounter Visit Diagnoses Diagnosis Previous section Other postprocedural status HTN (hypertension) Unspecified essential hypertension Asthma Unspecified asthma Hypothyroid Unspecified hypothyroidism Diabetes ([facility]) Type II or unspecified type diabetes mellitus without mention of complication, not stated as uncontrolled Status post gastric bypass for obesity Bariatric surgery status with other poor obstetric history(V23.49) with other poor obstetric history documented in this encounter Care Teams Service Desk Agent Relationship Specialty Start Date End Date Phylicia Brown NP [address] [place] [phone] PCP - General 09/19/10 11/20/13 documented as of this encounter
--- OUTSIDE RECORDS SUMMARY | 2024-04-22 04:29 | XMS_ITS | Encounter Summary ---
Author Organization [facility] Address [address] [place] [address] Care Team Providers Care Logger Driving Horses Name Role Phone Phylicia Brown NAIL STICKER Primary Care Provider Encounter Details Date Type Department Care Team (Late st Contact Info) Description 02/13/2011 Results Only [facility] [phone] Point, Of Care User [address] [place] [address] Social History Tobacco Use Types Packs/Day Years [...] 05/17/2024 13:00 EDT Office Visit [facility] Endocrinology [address] [address] Twyla Mcclellan NP [address] [place] [phone] 08/30/2024 14:00 EST Office Visit [address] [phone] Twyla Mcclellan NP [address] [place] [phone] documented as of this encounter Procedures Procedure Name Priority Date/Time Associated Diagnosis Comments POCT URINALYSIS Routine 02/13/2011 13:40 EDT documented in this encounter Results * (ABNORMAL) POCT URINALYSIS (02/13/2011 13:40 EDT) Color YELLOW [facility] Clarity, UA Clear [facility] Glucose 2+(A) NEG [facility] Bilirubin Neg NEG [facility] Ketones Neg NEG [facility] Specific [place] 1.015 1.001 - 1.035 [facility] Blood Neg NEG [facility] pH 6.0 4.6 - 8.0 [facility] Protein Neg NEG [facility] Urobilinogen 0.2 0.2 - 1.0 E.U./dl [facility] Nitrite Neg NEG [facility] Leuk Esterase Neg NEG [facility] MIN ward maid ID [id number] Test performed at [facility] 02/13/2011 13:4 0 EDT 02/13/2011 13:45 EDT Of Care User Point POINT OF CARE TEST O RDERABLES Performing Organization Address City/State/[facility] Co de Phone Number [facility] [address] [place] [address] documented in this encounter Visit Diagnoses Not on filedocumented in this encounter Care Teams Logger Driving Horses Relationship Specialty Start Date End Date Phylicia Brown NP [address] [place] [phone] PCP - General 09/19/10 11/20/13 documented as of this encounter
--- OUTSIDE RECORDS SUMMARY | 2024-04-22 04:29 | XMS_ITS | Encounter Summary ---
Author Organization [facility] Address [address] [place] [address] Care Team Providers Care Investigations Manager Name Role Phone CodyAllPhylicia SACHIN Primary Care Provider Reason for Visit * Reason Comments Routine Visit Encounter Details Date Type Department Care Team (Late st Contact Info) Description 03/06/2011 14:00 EDT Routine [facility] Obstetrics & Midwifery - [address] [phone] Viet Vann MD [address] [place] [phone] Susi Powell MD [address] [place] [phone] GA: 33w5d Social History Tobacco Use Types Packs/Day Years Used Date Smoking Tobacco: Former Cigarettes Q uit: 09/26/2003 Comments Yes Sex and Gender Information Value Date Recorded Sex Assigned at Not on file Gender Identity Not on file Sexual Orientation Not on file documented as of this encounter Last Filed Vital Signs Vital Sign Reading Time Taken Comments Blood Pressure 134/68 03/06/2011 1300 EDT Pulse - - Temperature - - Respiratory Rate - - Oxygen Saturation - - Inhaled Oxygen Concentration - - Weight 110.7 kg (244 lb) 03/06/2011 1300 EDT Height - - Body Mass Index 38.21 01/09/2011 1200 EDT documented in this encounter Progress Notes * Tigist Hansen LPN - 03/06/2011 1414 EDT Recent Labs Basename 03/06/11 1408 ??? COLOR YELLOW ??? CLARITYU Clear ??? GLUCOSEUAPOC 3+* ??? BILIRUBIN Neg ??? KETONES Neg ??? SPECGRAV 1.020 ??? BLOOD Neg ??? PHUA 5.5 ??? PROTEINUAPOC Neg ??? UROBILINOGEN 0.2 ??? NITRITE Neg ??? LEUKESTER Neg * Susi Powell MD - 03/06/2011 1404 EDT Pt without c/o; gfm no contrax no bleeding' BP 134/68 Wt 110.678 kg (244 lb) Diabetes - Susi Powell MD 03/06/11 1401 Signed Glucose control good fbs ,100 2 hr <120; getting nst at [facility] once per wk and here once per wk;next growth us 3 wks; HTN (hypertension) - Susi Powell MD 03/06/11 1402 Signed Stable bp; no hx preeclampsia Previous section - Susi Powell MD 03/06/11 1402 Signed schedued and plan tubal Status Post Gastric Bypass for Obesity - Susi Powell MD 03/06/11 1404 Signed Nutritional status stable; vit K last week, we do not have results, done at [facility]- will call them plan: Check vit K results from [facility]: after pt left:l low; will need IM vit K prior to del at 36 wks nst 2x/wk once at [facility] gbs next visit C/s scheduiled with btl Ssui Powell MD documented in this encounter Miscellaneous Notes * Assessment & Plan Note - Susi Powell MD - 03/06/2011 1404 EDTAssociated Problem(s): Status post gastric bypass for obesity Nutritional status stable; vit K last week, we do not have results, done at [facility]- will call them Got after visit: vit K low; will start IM vit k at 36 wks * Assessment & Plan Note - Susi Powell MD - 03/06/2011 1402 EDTAssociated Problem(s): History of section schedued and plan tubal * Assessment & Plan Note - Susi Powell MD - 03/06/2011 1402 EDTAssociated Problem(s): Hypertensive disorder Stable bp; no hx preeclampsia * Assessment & Plan Note - Susi Powell MD - 03/06/2011 1401 EDTAssociated Problem(s): Diabetes mellitus ([facility]) Glucose control good fbs ,100 2 hr <120; getting nst at [facility] once per wk and here once per wk;next growth us 3 wks; documented in this encounter Plan of Treatment Upcoming Encounters Date Type Department Care Team (Late st Contact Info) Description 05/17/2024 13:00 EDT Office Visit [facility] Endocrinology - [address] [phone] Twyla Mcclellan NP [address] [facility] [address] [place] [phone] 08/30/2024 14:00 EST Office Visit [facility] Endocrinology - [facility] [address] [place], [place] [phone] Twyla Mcclellan NP [address] [facility] [address] [place] [phone] documented as of this encounter Visit Diagnoses Diagnosis Previous section Other postprocedural status HTN (hypertension) Unspecified essential hypertension Asthma Unspecified asthma Hypothyroid Unspecified hypothyroidism Diabetes ([facility]) Type II or unspecified type diabetes mellitus without mention of complication, not stated as uncontrolled Status post gastric bypass for obesity Bariatric surgery status with other poor obstetric history(V23.49) with other poor obstetric history documented in this encounter Care Teams Investigations Manager Relationship Specialty Start Date End Date Phylicia Brown NP [address] [place] [phone] PCP - General 09/19/10 11/20/13 documented as of this encounter
--- OUTSIDE RECORDS SUMMARY | 2024-04-22 04:29 | XMS_ITS | Encounter Summary ---
Author Organization [facility] Address [address] [place] [address] Care Team Providers Care Dairy Lab Technician Name Role Phone MkSongPhylicia SACHIN Primary Care Provider Reason for Visit * Reason Comments Routine Visit Pt. reports feeli ng well, +FM. Pt. denies VB/LOF, ctx. Encounter Details Date Type Department Care Team (Late st Contact Info) Description 02/13/2011 13:15 EDT Routine [facility] Obstetrics & Midwifery - [facility] [address], [place] [phone] Susi Powell MD [address] [facility], Level [address] [place] [address] GA: [id number] Social History Tobacco Use Types Packs/Day Years Used Date Smoking Tobacco: Former Cigarettes Q uit: 09/26/2003 Comments Yes Sex and Gender Information Value Date Recorded Sex Assigned at Not on file Gender Identity Not on file Sexual Orientation Not on file documented as of this encounter Last Filed Vital Signs Vital Sign Reading Time Taken Comments Blood Pressure 136/82 02/13/2011 1319 EDT Pulse - - Temperature - - Respiratory Rate - - Oxygen Saturation - - Inhaled Oxygen Concentration - - Weight 109.6 kg (241 lb 9.6 oz) 02/13/2011 1319 EDT Height - - Body Mass Index 37.83 01/09/2011 1200 EDT documented in this encounter Progress Notes * Kareen Ryan - 02/13/2011 1408 EDT Recent Labs Basename 02/13/11 1340 ??? COLOR YELLOW ??? CLARITYU Clear ??? GLUCOSEUAPOC 2+* ??? BILIRUBIN Neg ??? KETONES Neg ??? SPECGRAV 1.015 ??? BLOOD Neg ??? PHUA 6.0 ??? PROTEINUAPOC Neg ??? UROBILINOGEN 0.2 ??? NITRITE Neg ??? LEUKESTER Neg * Lorelei Kitchen MD - 02/13/2011 1340 EDT MFM Fellow S: No complaints. No ctx, LOF, VB. FM present. Chest cold improved, sugars improving now that she is feeling better. Follows with endocrine. Fastings 80s, to 100 Postprandials 120s premeals 100-110 Filed Vitals: 02/13/11 1319 BP: 136/82 Weight: 109.589 kg (241 lb 9.6 oz) FHR 140s FH 31 cm Kymberly Means a 35 y.o. @ [id number] Diabetes - Lorelei Kitchen MD 02/13/11 1347 Signed Scheduling growth/BPPs to start at 32 weeks. Sugars improving, following with endocrine. A1C 7.2 on02/07 Hypothyroid - Lorelei Kitchen MD 02/13/11 1348 Signed Reviewed normal TSH from 02/07. No change in dose for the third trimester. HTN (hypertension) - Lorelei Kitchen MD 02/13/11 1349 Signed Normotensive, negative protein on dip. Status Post Gastric Bypass for Obesity - Lorelei Kitchen MD 02/13/11 1351 Signed Labs normal from January (Vit D, thiamine, iron, B12). Asthma - Lorelei Kitchen MD 02/13/11 1351 Signed Stable Previous section - Lorelei Kitchen MD 02/13/11 1351 Signed Plans repeat with BTL. with other poor obstetric history - Lorelei Kitchen MD 02/13/11 1352 Signed No signs/sx labor. Appropriate fundal height. Last growth 2 weeks ago, 50th percentile. RTC 2 weeks Lorelei Kitchen MD MFMS Attending I discussed the pt with Dr. Kitchen at the time of the visit. I agree with impression and plan as above. documented in this encounter Miscellaneous Notes * Assessment & Plan Note - Lorelei Kitchen MD - 02/13/2011 1352 EDTAssociated Problem(s): with poor obstetric history No signs/sx labor. Appropriate fundal height. Last growth 2 weeks ago, 50th percentile. * Assessment & Plan Note - Lorelei Kitchen MD - 02/13/2011 1351 EDTAssociated Problem(s): History of section Plans repeat with BTL. * Assessment & Plan Note - Lorelei Kitchen MD - 02/13/2011 1351 EDTAssociated Problem(s): Asthma Stable * Assessment & Plan Note - Lorelei Kitchen MD - 02/13/2011 1351 EDTAssociated Problem(s): Status post gastric bypass for obesity Labs normal from January (Vit D, thiamine, iron, B12). * Assessment & Plan Note - Lorelei Kitchen MD - 02/13/2011 1349 EDTAssociated Problem(s): Hypertensive disorder Normotensive, negative protein on dip. * Assessment & Plan Note - Lorelei Kitchen MD - 02/13/2011 1348 EDTAssociated Problem(s): Hypothyroidism Reviewed normal TSH from 02/07. No change in dose for the third trimester. * Assessment & Plan Note - Lorelei Kitchen MD - 02/13/2011 1347 EDTAssociated Problem(s): Diabetes mellitus ([facility]) Scheduling growth/BPPs to start at 32 weeks. Sugars improving, following with endocrine. A1C 7.2 on02/07 documented in this encounter Plan of Treatment Upcoming Encounters Date Type Department Care Team (Late st Contact Info) Description 05/17/2024 13:00 EDT Office Visit [facility] Endocrinology - [address] [phone] Twyla Mcclellan CHRISTIAN SCIENCE PRACTITIONER [address] [place] [phone] 08/30/2024 14:00 EST Office Visit [facility] Endocrinology [address] [phone] Twyla Mcclellan NP [address] [place] [phone] documented as of this encounter Visit Diagnoses Diagnosis Previous section Other postprocedural status HTN (hypertension) Unspecified essential hypertension Asthma Unspecified asthma Hypothyroid Unspecified hypothyroidism Diabetes ([facility]) Type II or unspecified type diabetes mellitus without mention of complication, not stated as uncontrolled Status post gastric bypass for obesity Bariatric surgery status with other poor obstetric history(V23.49) with other poor obstetric history documented in this encounter Discontinued Medications Medication Sig Discontinue Reason Start Date End Da te amoxicillin (AMOXIL) 500 mg capsule Take 500 mg by mouth every 12 hours. 01/28/2011 02/13/2011 documented as of this encounter Orders Lab Orders Without Results Count Last Ordered D ate First Ordered Date POCT URINE DIPSTICK 1 02/13/2011 documented in this encounter Care Teams Dairy Lab Technician Relationship Specialty Start Date End Date Phylicia Brown NP [address] [place] [phone] PCP - General 09/19/10 11/20/13 documented as of this encounter
--- OUTSIDE RECORDS SUMMARY | 2024-04-22 04:29 | XMS_ITS | Encounter Summary ---
Author Organization [facility] Address [address] [place] [address] Care Team Providers Care Director Writing Name Role Phone Phylicia Brown CONSTRUCTION PLANT OPERATOR Primary Care Provider Reason for Visit * Reason Comments Non-stress Test Encounter Details Date Type Department Care Team (Late st Contact Info) Description 02/27/2011 15:30 EDT Nurse Only [facility] Obstetrics & Midwifery - [address] [address] Unknown, Provider, Nurse, ward Previous section; HTN (hypertension); Asthma; Hypothyroid; Diabetes (CMS-HCC) ([facility]); Status post gastric bypass for obesity; with other poor obstetric history Social History Tobacco Use Types Packs/Day Years Used Date Smoking Tobacco: Former Cigarettes Q uit: 09/26/2003 Comments Yes Sex and Gender Information Value Date Recorded Sex Assigned at Not on file Gender Identity Not on file Sexual Orientation Not on file documented as of this encounter Progress Notes * Lee Cowan MD - 02/27/2011 1616 EDT NST Report Baseline Heart Rate: 120 Accelerations: present Movement: present Decelerations: absent Contractions: absent Interpretation: reactive Lee Cowan MD 02/27/2011 16:16 documented in this encounter Miscellaneous Notes * Scanned Note-Null - Marc, Insulator Tester - 03/03/2011 1156 EDT documented in this encounter Plan of Treatment Upcoming Encounters Date Type Department Care Team (Late st Contact Info) Description 05/17/2024 13:00 EDT Office Visit [facility] Endocrinology - [address] [address] wTyla Mcclellan NP [address] [place] [phone] 08/30/2024 14:00 EST Office Visit [facility] - [address] [address] Twyla Mcclellan NP [address] [place] [phone] documented as of this encounter Visit Diagnoses Diagnosis Previous section Other postprocedural status HTN (hypertension) Unspecified essential hypertension Asthma Unspecified asthma Hypothyroid Unspecified hypothyroidism Diabetes ([facility]) Type II or unspecified type diabetes mellitus without mention of complication, not stated as uncontrolled Status post gastric bypass for obesity Bariatric surgery status with other poor obstetric history(V23.49) with other poor obstetric history documented in this encounter Care Teams Director Writing Relationship Specialty Start Date End Date Phylicia Brown NP [address] [place] [phone] PCP - General 09/19/10 11/20/13 documented as of this encounter
--- OUTSIDE RECORDS SUMMARY | 2024-04-22 04:30 | XMS_ITS | Encounter Summary ---
Author Organization [facility] Address [address] [place] [address] Care Team Providers Care Director Loan Name Role Phone Anna Marie Montero MD Primary Care Provider Unavaila ble Reason for Visit * Reason Comments Obesity post op Encounter Details Date Type Department Care Team (Late st Contact Info) Description 03/27/2010 11:45 EDT Office Visit [facility] Bariatric Surgery [facility] [address] [place], [place] [phone] Maxx Amador MD [address] [place] [phone] Morbid obesity (HCC-CMS) (Primary Dx) Social History Tobacco Use Types Packs/Day Years Used Date Smoking Tobacco: Never Assessed Sex and Gender Information Value Date Recorded Sex Assigned at Not on file Gender Identity Not on file Sexual Orientation Not on file documented as of this encounter Last Filed Vital Signs Vital Sign Reading Time Taken Comments Blood Pressure 132/74 03/27/2010 1143 EDT Pulse 64 03/27/2010 1143 EDT Temperature - - Respiratory Rate - - Oxygen Saturation - - Inhaled Oxygen Concentration - - Weight 101.6 kg (224 lb) 03/27/2010 1143 EDT Height 169.2 cm (5' 6.61) 03/27/2010 1143 EDT Body Mass Index 35.49 03/27/2010 1143 EDT documented in this encounter Progress Notes * Inpatient, Physician - 04/01/2010 1404 EDT * Marielena Ralph - 03/27/2010 1209 EDT Nutrition Post Op Visit Subjective: Last visit 11/07/09. Questionnaire Reviewed: yes Intolerance Episodes: yes - very rarely Food Intolerances: cake recently, scallops in January, rice Current Exercise: Hiking, biking, swimming, walking 5 days a week 60+ mins each Reactive Hypoglycemic Symptoms (bypass only): none Perceived Level of Band Restriction (band only): n/a Objective: Current Weight: Last 1 Encounter Wt Readings: Office Visit on 03/27/2010 03/27/2010 11:43 AM Weight: 101.606 kg (224 lb) Current BMI: Body mass index is Body mass index is 35.49 kg/(m^2).. Weight Loss since Surgery: -51.4 Weight Change since Last Visit: - 32 Supplement Usage: Type Amount MVT Pill 1/d B12 Pill 1/d Calcium w/Vit D chew 2 (1200mg/day) Iron Pill 1/d B Complex Pill 1/d Vit D Pill 1000u Other: Recent Labs: No labsMD to order Assessment: Protein and fiber q meal/ snack Adequate Meal Frequency: Yes Adequate Meal Composition: Yes Exercise Adequacy: Yes Nutritional Issues:none Estimated Level of Band Restriction: N/a Plan: Continue current diet and exercise Education Provided: None * Maxx Amador MD - 03/27/2010 1205 EDT Kymberly Stewart is here in follow-up to her Alfredo-En-Y gastric bypass on 07/29. PROBLEM LIST Patient Active Problem List Diagnoses Code ??? Morbid Obesity 278.01 ??? Diabetes 250.00Q ??? Sleep Apnea 780.57C ??? Status Post Gastric Bypass for Obesity V45.86J ??? Hypothyroid 244.9AR ??? Asthma 493.90AE ??? DM (diabetes mellitus), type 2 250.00GF ??? HTN (hypertension) 401.9AF ??? Dyslipidemia 272.4CR ??? ANUPAM (obstructive sleep apnea) 327.23H SUBJECTIVE Emesis: No complaints of emesis Nausea: No complaints of nausea Increased Volume Tolerance: no Abdominal Pain: No complaints of abdominal pain Lightheadedness: No complaints of lightheadedness Bowel Function: Normal Pannus: No problems related to pannus reported OBJECTIVE General Appearance: healthy appearing and well developed, well nourished Abdomen: Incision well-healed Extremities: nl Skin: nl Other: nl ASSESSMENT Expected course without obvious complications and Weight Loss: good Finished actigal Needs labs PLAN 1. Return to clinic in 3 month(s). 2. No orders of the defined types were placed in this encounter. labd including HA1C Maxx Amador MD 03/27/2010 12:04 PM * Jami Davis - 03/27/2010 1154 EDT 30-Day Plus Bariatric Surgery Postop Questionnaire [...] and discharge and suspected reason for admission) Samia Iglesias 03/27/2010 11:54 AM documented in this encounter Miscellaneous Notes * Scanned Note-Null - Marc, Electrical Line Worker - 04/26/2011 2205 EDT documented in this encounter Plan of Treatment Upcoming Encounters Date Type Department Care Team (Late st Contact Info) Description 05/17/2024 13:00 EDT Office Visit [facility] Endocrinology - [facility] [address] [place] [address] Twyla Mcclellan NP [address] [facility] [address] [place] [phone] 08/30/2024 14:00 EST Office Visit [facility] Endocrinology - [facility] [address] [facility] [place] [address] Twyla Mcclellan, OPERATING TABLE ASSEMBLER [address] [facility] [address] [place] [phone] documented as of this encounter Visit Diagnoses Diagnosis Morbid obesity ([facility])- Primary Morbid obesity documented in this encounter Discontinued Medications Medication Sig Discontinue Reason Start Date End Da te Ergocalciferol, Vitamin D2, (VITAMIN D) 400 unit Cap Take 400 Units by mouth daily. Take one tab Patient Stopped Taking 03/27/2010 FE FUMARATE/CA CARB/VITAMIN D3 (GEGLOAC-[id number] FUMARATE ORAL) Take by mouth daily. Take one tab Patient Stopped Taking 03/27/2010 FERROUS SULFATE,DRIED (IRON, DRIED, ORAL) Take by mouth daily. Take one tab Patient Stopped Taking 03/27/2010 FLUTICASONE/SALMETEROL (ADVAIR HFA INHL) Inhale 230 mg as directed 2 times daily. Take two puffs a day Patient Stopped Taking 03/27/2010 methyldopa (ALDOMET) 500 mg tablet Take 500 mg by mouth 2 times daily. Patient Stopped Taking 03/27/2010 NIFEdipine (PROCARDIA-XL) 30 mg tablet Take 30 mg by mouth daily. pm Patient Stopped Taking 03/27/2010 NORETHINDRONE, [id number], (JOLIVETTE ORAL) Take 1 Tab by mouth daily. Patient Stopped Taking 03/27/2010 oxycodone (ROXICODONE) 5 mg immediate release tablet Take 1-2 Tabs by mouth every 4 hours as needed for Pain. Patient Stopped Taking 08/10/2009 03/27/2010 URSODIOL (ACTIGALL ORAL) Take by mouth 2 times daily. Take one tab Patient Stopped Taking 03/27/2010 documented as of this encounter Historical Medications * This list may reflect changes made after this encounter. Medication Sig Dispensed Refills Start Date End Date ethinyl estradiol-etonogestrel (NUVARING) 0.12-0.015 mg/[address] 1 Each vaginally SEE ADMIN INSTRUCTIONS. Wear continuously for 3 weeks; remove for 1 week; repeat with new ring, as directed. 06/30/2010 added in this encounter Care Teams Director Loan Relationship Specialty Start Date End Date Anna Marie Montero MD PCP - General 03/26/10 09/18/10 documented as of this encounter
--- OUTSIDE RECORDS SUMMARY | 2024-04-22 04:30 | XMS_ITS | Encounter Summary ---
Author Organization [facility] Address [address] [place] [address] Care Team Providers Care Cattle Knocker Name Role Phone Phylicia Brown SACHIN Primary Care Provider Encounter Details Date Type Department Care Team (Latest Contact Info) Description 03/19/2009 9:23 EDT - 03/19/2009 23:59 EDT Hospital Encounter [address] [address] Maxx Amador MD [address] [place] [phone] Discharge Disposition: Home or Self Care Social History Tobacco Use Types Packs/Day Years Used Date Smoking Tobacco: Never Assessed Sex and Gender Information Value Date Recorded Sex Assigned at Not on file Gender Identity Not on file Sexual Orientation Not on file documented as of this encounter Discharge Disposition Disposition Code Departure Means Destination Home or Self Fdc documented in this encounter Procedure Notes * Inpatient, Physician - 03/20/2009 1302 EDT * Inpatient, Physician - 03/20/2009 1302 EDTAssociated Order(s): ORDERS - SCANNED * Inpatient, Physician - 03/20/2009 1301 EDTAssociated Order(s): ORDERS - SCANNED documented in this encounter Miscellaneous Notes * Scanned Note-Null - Inpatient, Physician - 03/20/2009 1302 EDT * Brief Op Note - Inpatient, Physician - 03/20/2009 1302 EDT * Scanned Note-Null - Inpatient, Physician - 03/20/2009 1301 EDT * Scanned Note-Null - Inpatient, Physician - 03/20/2009 0927 EDT documented in this encounter Plan of Treatment Upcoming Encounters Date Type Department Care Team (Late st Contact Info) Description 05/17/2024 13:00 EDT Office Visit [facility] Endocrinology [address] [phone] Twyla Mcclellan NP [address] [place] [phone] 08/30/2024 14:00 EST Office Visit [address] [phone] Twyla Mcclellan NP [address] [place] [phone] documented as of this encounter Procedures Procedure Name Priority Date/Time Associated Diagnosis Comments ZZHEMOGLOBIN A1C Routine 04/19/2009 13:0 5 EDT ORDERS - SCANNED 03/20/2009 13:0 2 EDT ORDERS - SCANNED 03/20/2009 13:0 1 EDT GLUCOSE, GLUCOMETER Routine 03/19/2009 1 0:03 EDT documented in this encounter Results * HEMOGLOBIN A1C (04/19/2009 13:05 EDT) [facility] POCT Hgb A1C 9.4 % [facility] Comment: Reference Range: <6% Normal Range ADA guidelines: The A1c goal for non adults in general is <7% The A1c goal for selected individual patients is as close to normal (<6%) as possible without significant hypoglycemia. Test Performed at [facility] 04/19/2009 13:0 5 EDT 04/24/2009 9:46 EDT Shanika Aquino IMPROVEMENT ENGINEER CHEMISTRY & BLOOD G ORDERABLES Performing Organization Address [facility] de Phone Number [facility] [address] [place] [address] * ORDERS - SCANNED (03/20/2009 13:02 EDT) 03/20/2009 13:0 2 EDT Narrative 03/20/2009 14:29 EDT Ordered by an unspecified provider. Transcriptions Inpatient, Physician - 03/20/2009 13:02 EDT Physician Inpatient MD ADMISSION ORDERAB LES * ORDERS - SCANNED (03/20/2009 13:01 EDT) 03/20/2009 13:0 1 EDT Narrative 03/20/2009 14:28 EDT Ordered by an unspecified provider. Transcriptions Inpatient, Physician - 03/20/2009 13:01 EDT Physician Inpatient MD ADMISSION ORDERAB LES * (ABNORMAL) GLUCOSE, GLUCOMETER (03/19/2009 10:03 EDT) [facility] Glucose, Fingerstick 184(H) 70 - 100 mg/dl [facility] Industrial Engineering Intern ID [id number] Test Performed by Nursing Services [facility] 03/19/2009 10:0 3 EDT 03/19/2009 15:06 EDT Provider Unknown MD CHEMISTRY & BLOOD GA S ORDERABLES Performing Organization Address [facility] Co de Phone Number [facility] [address] [place] [address] documented in this encounter Visit Diagnoses Not on filedocumented in this encounter Care Teams Cattle Knocker Relationship Specialty Start Date End Date Phylicia Brown NP [address] [place] [phone] PCP - General 01/25/09 03/25/10 documented as of this encounter
--- OUTSIDE RECORDS SUMMARY | 2024-04-22 04:30 | XMS_ITS | Encounter Summary ---
Author Organization [facility] Address [address] [place] [address] Care Team Providers Care Air Export Agent Name Role Phone Unavailable Primary Care Provider Unavailabl e Encounter Details Date Type Department Care Team (Latest Contact Info) Description 12/26/2008 14:35 EDT Hospital Encounter [facility] [address] [place] [address] Brielle Mendez, XEROX MACHINE ASSEMBLER [address] [address] Discharge Disposition: Auto Discharge Social History Tobacco [...] Info) Description 05/17/2024 13:00 EDT Office Visit [facility] Endocrinology - [facility] [address] [place], [place] [phone] Twyla Mcclellan NP [address] [place] [phone] 08/30/2024 14:00 EST Office Visit [facility] Endocrinology - [facility] [address] [place], [place] [phone] Twyla Mcclellan NP [address] [phone] documented as of this encounter Visit Diagnoses Not on filedocumented in this encounter
--- OUTSIDE RECORDS SUMMARY | 2024-04-22 04:30 | XMS_ITS | Encounter Summary ---
Author Organization [facility] Address [address] [place] [address] Care Team Providers Care Certified Orthoptist Name Role Phone Phylicia Brown NP Primary Care Provider Encounter Details Date Type Department Care Team (Late st Contact Info) Description 01/03/2010 Abstract [facility] Bariatric Surgery [facility] [address] [place] [address] Brielle Mendez, SALES REPRESENTATIVE GAS SERVICE [address] [facility] [address] [phone] DM (diabetes mellitus), type 2 (CMS-HCC) (HCC-CMS); HTN (hypertension); Dyslipidemia Social History Tobacco Use Types Packs/Day Years [...] System [facility] Endocrinology - [address] [address] Twyla Mcclellan NP [address] [place] [address] [address] [place] [phone] 08/30/2024 14:00 EST Office Visit [facility] Endocrinology - [address] [phone] Twyla Mcclellan NP [address] [facility] [address] [place] [phone] documented as of this encounter Visit Diagnoses Diagnosis DM (diabetes mellitus), type 2 ([facility]) Type II or unspecified type diabetes mellitus without mention of complication, not stated as uncontrolled HTN (hypertension) Unspecified essential hypertension Dyslipidemia Other and unspecified hyperlipidemia documented in this encounter Care Teams Certified Orthoptist Relationship Specialty Start Date End Date Phylicia Brown NP [address] [place] [address] PCP - General 01/25/09 03/25/10 documented as of this encounter
--- OUTSIDE RECORDS SUMMARY | 2024-04-22 04:30 | XMS_ITS | Encounter Summary ---
Author Organization [facility] Address [address] [place] [address] Care Team Providers Care Liquor Store Manager Name Role Phone Anna Marie Montero MD Primary Care Provider Juliannaa ble Encounter Details Date Type Department Care Team (Late st Contact Info) Description 09/02/2010 Orders Only [facility] Bariatric Surgery - [address] [phone] Brielle Mendez S, CLUB CAR ATTENDANT [address] [phone] Morbid obesity (HCC-CMS); Diabetes (CMS-HCC) (HCC-CMS); Postresectional malabsorption syndrome; state, incidental Social History Tobacco Use Types Packs/Day Years Used Date Smoking Tobacco: Never Assessed Sex and Gender Information Value Date Recorded Sex Assigned at Not on file Gender Identity Not on file Sexual Orientation Not on file documented as of this encounter Plan of Treatment Upcoming Encounters Date Type Department Care Team (Late st Contact Info) Description 05/17/2024 13:00 EDT Office Visit [facility] Endocrinology - [facility] [address] [place] [address] Twyla Mcclellan NP 62 [facility] [address] [place] [phone] 08/30/2024 14:00 EST Office Visit [facility] Endocrinology - [address] [phone] Twyla Mcclellan, HORSES OR MULES TEAMSTER [address] [place] [phone] documented as of this encounter Visit Diagnoses Diagnosis Morbid obesity ([facility]) Morbid obesity Diabetes ([facility]) Type II or unspecified type diabetes mellitus without mention of complication, not stated as uncontrolled 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
--- OUTSIDE RECORDS SUMMARY | 2024-04-22 04:30 | XMS_ITS | Encounter Summary ---
Author Organization [facility] Address [address] [place] [address] Care Team Providers Care Residential Roofer Name Role Phone Unavailable Primary Care Provider Unavailabl e Encounter Details Date Type Department Care Team (Late st Contact Info) Description 05/22/2008 9:00 EDT Hospital Encounter [facility] - Maple conversion [address] [place] [address] Sally Torres, PhD [address] [place] [phone] Social History Tobacco Use Types Packs/Day Years [...] 9:48 EDT documented as of this encounter Plan of Treatment Upcoming Encounters Date Type Department Care Team (Late st Contact Info) Description 05/17/2024 13:00 EDT Office Visit [facility] Endocrinology - [address] [phone] Twyla Mcclellan NP [address] [phone] 08/30/2024 14:00 EST Office Visit [facility] Endocrinology - [address] [phone] Twyla Mcclellan NP [address] [phone] documented as of this encounter Visit Diagnoses Not on filedocumented in this encounter
--- OUTSIDE RECORDS SUMMARY | 2024-04-22 04:30 | XMS_ITS | Encounter Summary ---
Author Organization [facility] Address [address] [place] [address] Care Team Providers Care Furnace Room Supervisor Name Role Phone Anna Marie Montero MD Primary Care Provider Unavaila ble Reason for Visit * Reason Onset Date Comments Appointment Related 09/11/2010 former MFM p atient + UPT Encounter Details Date Type Department Care Team (Late st Contact Info) Description 09/11/2010 Telephone [facility] Women's Services - [address] [phone] Kristina Stuart RN [address] [place], [place] [phone] Appointment Related (former MFM patient + UPT) Social History Tobacco Use Types Packs/Day Years Used Date Smoking Tobacco: Never Assessed Sex and Gender Information Value Date Recorded Sex Assigned at Not on file Gender Identity Not on file Sexual Orientation Not on file documented as of this encounter Miscellaneous Notes * Telephone Encounter - Kristina Stuart - 09/11/2010 0912 EST Date: 09/11/2010 Time: 09 Phone #:[phone] Referring Provider: Anna Marie Montero Provider: RAUL : 2 Para: 1 Abort: Ectopic: Miscarriage: How conceived? Spontaneous 1 CC/HCG/IUI Other LMP: 07/08/2010 GA: 9wk2d Blood Type: O+ Current Medications: metformin, synthroid, Novolog insulin , PNV, folic acid, citalopram , Vit D, B12 Allergies: NKDA Ht: 5ft7.75in Wt: 209lb Risk Factors: Abdominal pain or vaginal bleeding? NO Previous pelvic or tubal surgery or ruptured appendix? NO History of pelvic infections? No Previous tubal ? No Do you have an IUD? 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 DM, hypothyroidism Previous outcomes: Date: Beta HCG Levels Date: Ultrasound Scheduled? Date: Time: Phone #: Referring Provider: RAYRAY Provider: : Para: Abort: Ectopic: Miscarriage: How conceived? Spontaneous CC/HCG/IUI Other LMP: GA: Blood Type: Current Medications: Allergies: Ht: Wt: Risk Factors: Abdominal pain or vaginal bleeding? Previous pelvic or tubal surgery or ruptured appendix? History of pelvic infections? Previous tubal ? Do you have an IUD? 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 Do you have a chronic medical illness? Previous outcomes: Date: Beta HCG Levels Date: Ultrasound Scheduled? documented in this encounter Plan of Treatment Upcoming Encounters Date Type Department Care Team (Late st Contact Info) Description 05/17/2024 13:00 EDT Office Visit [facility] Endocrinology [address] [address] Twyla Mcclellan NP [address] [place] [phone] 08/30/2024 14:00 EST Office Visit [facility] Endocrinology [address] [phone] Twyla Mcclellan NP [address] [place] [phone] documented as of this encounter Visit Diagnoses Not on filedocumented in this encounter Care Teams Furnace Room Supervisor Relationship Specialty Start Date End Date Anna Marie Montero MD PCP - General 03/26/10 09/18/10 documented as of this encounter
--- OUTSIDE RECORDS SUMMARY | 2024-04-22 04:30 | XMS_ITS | Encounter Summary ---
Author Organization [facility] Address [address] [place] [address] Care Team Providers Care Refrigeration Plant Operator Name Role Phone Anna Marie Montero MD Primary Care Provider Elvis shields Encounter Details Date Type Department Care Team (Late st Contact Info) Description 05/14/2010 Abstract [facility] Endocrinology - [address] [address] Shanika Aquino NP [address] [place] [phone] Social History Tobacco Use Types Packs/Day Years Used Date Smoking Tobacco: Never Assessed Sex and Gender Information Value Date Recorded Sex Assigned at Not on file Gender Identity Not on file Sexual Orientation Not on file documented as of this encounter Plan of Treatment Upcoming Encounters Date Type Department Care Team (Late st Contact Info) Description 05/17/2024 13:00 EDT Office Visit [facility] Endocrinology [address] [phone] Twyla Mcclellan NP [address] [place] [phone] 08/30/2024 14:00 EST Office Visit [address] [address] Twyla Mcclellan NP [address] [place] [phone] documented as of this encounter Visit Diagnoses Not on filedocumented in this encounter Historical Medications * This list may reflect changes made after this encounter. Medication Sig Dispensed Refills Start Date End Date UNABLE TO FIND 500 mg 2 times daily. Med Name: Methyldopa 05/14/2010 06/30/2010 pramlintide (SYMLIN) 600 mcg/mL injection Inject 60 mcg into the skin 3 times daily before meals. 06/30/2010 NIFEDIPINE ORAL Take 30 mg by mouth daily. 05/14/2010 06/30/2010 NORETHINDRONE, [id number], (JOLIVETTE ORAL) Take by mouth daily. 06/30/201003/2011 insulin aspart (NOVOLOG) 100 unit/mL injection Inject into the skin. Mini Med Pump: mn-5.35, 6a=6.0, 7a=4.6, 0430=4.8 06/30/2010 added in this encounter Care Teams Refrigeration Plant Operator Relationship Specialty Start Date End Date Anna Marie Montero MD PCP - General 03/26/10 09/18/10 documented as of this encounter
--- OUTSIDE RECORDS SUMMARY | 2024-04-22 04:30 | XMS_ITS | Encounter Summary ---
Author Organization [facility] Address [address] [place] [address] Care Team Providers Care Proj Engineer Name Role Phone Phylicia Brown NP Primary Care Provider Encounter Details Date Type Department Care Team (Late st Contact Info) Description 06/21/2008 Before PRISM Converted Visit (Maple) [facility] - Maple conversion [address] [place] [address] Maxx Amador MD [address] [place] [phone] Social History Tobacco Use Types Packs/Day Years Used Date Smoking Tobacco: Never Assessed Sex and Gender Information Value Date Recorded Sex Assigned at Not on file Gender Identity Not on file Sexual Orientation Not on file documented as of this encounter Consult Notes * Maxx Amador MD - 04/11/2009 1907 EDT DIVISION OF BARIATRIC SURGERY CONSULTATION June 21, 2008 Phylicia Brown NP [address] [address] I was asked to see the patient in consultation by Phylicia Brown. Dear Phylicia Brown: Thank you very much for allowing me to see Kymberly Stewart. As you know, she is a 33morbidly-obese female who has been obese since childhood. Her maximum weight loss in the past has been 85 pounds with diet and exercise. She subsequently regained. Her highestweight was 296 pounds. Her primary motivation for losing weight is to improve her health, mobility and longevity. Past medical history is significant for asthma, type 2 diabetes, hyperlipidemia, hypertension, anxiety. Medications include fluticasone, Advair, metformin, citalopram, simvastatin, Cozaar, nifedipine, and it looks like Norvasc. Prior surgeries: She has had a . Review of systems is positive for a 10-year history of diabetes, four on insulin. A seven-year history of hypertension. She is on BiPAP for obstructive sleep apnea, irregular menses, PCOS. The remainder of the ROS is negative. No problems with bleeding or blood clots. The patient has been advised against . She needs a Pap and pelvic. Never had a mammogram or screening colonoscopy. Family history is positive for obesity, diabetes, hypertension, and pancreatic cancer in her father. Psychosocially, she lives in [place]. 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 She quit smoking four years ago. She does not drink. On physical exam, weight is 296. BMI is 46. Blood pressure is 156/68. Heart rate is 100. She is on 0/10 pain. Her heart is regular. Abdomen is obese, soft, nontender. She has a low midline incision form a Pfannenstiel from a . No clubbing, cyanosis or edema. Neurologically, she is grossly intact, alert and oriented times three. Impression: This is a 33morbidly-obese female with multiple comorbidities including diabetes, hypertension, hyperlipidemia. I discussed her medical profile; the risks and benefits of gastric bypass surgery; answered any questions generated by ANKITA, which the patient completed; discussed the way the surgery is done; how it causes weight loss; the potential risks and complications; the impact on eating; and critical nature of exercise and follow up to a good outcome. At this stage of the evaluation, I feel the patient is a good candidate for either bypass or band. I discussed both of the procedures. We will have the results of her Pap and pelvic sent to us. I will give her ANKITA for the band. We will have an upper GI scheduled and follow up with me. Sincerely, Signed by Maxx Amador MD 06/25/2008 09:53 MD Arnold Becerra: 06/21/2008 - Maxx Amador MD - Job ID: [id number] Doc ID: [id number] cc: Phylicia Brown NP documented in this encounter Plan of Treatment Upcoming Encounters Date Type Department Care Team (Late st Contact Info) Description 05/17/2024 13:00 EDT Office Visit [facility] Endocrinology [address] [address] Twyla Mcclellan NP [address] [place] [phone] 08/30/2024 14:00 EST Office Visit [address] [address] Twyla Mcclellan NP [address] [place] [phone] documented as of this encounter Visit Diagnoses Not on filedocumented in this encounter Care Teams Proj Engineer Relationship Specialty Start Date End Date Phylicia Brown NP [address] [place] [phone] PCP - General 01/25/09 03/25/10 documented as of this encounter
--- OUTSIDE RECORDS SUMMARY | 2024-04-22 04:30 | XMS_ITS | Encounter Summary ---
Author Organization [facility] Address [address] [place] [address] Care Team Providers Care Associate Loan Officer Name Role Phone Anna Marie Montero MD Primary Care Provider Julianna Phylicia Anderson NP Primary Care Provider Phylicia Brown NP Primary Care Provider Edmar Temple MD Primary Care Provider [phone] Encounter Details Date Type Department Care Team (Late st Contact Info) Description 01/03/2010 Documentation Visit [facility] Bariatric Surgery - [address] [phone] Brielle Mendez, FIOS LINE INSTALLER [address] [phone] Social History Tobacco Use Types Packs/Day Years [...] Concentration - - Weight - - Height 169.2 cm (5' 6.61) 01/03/2010 1300 EDT Body Mass Index - - documented in this encounter Plan of Treatment Upcoming Encounters Date Type Department Care Team (Late st Contact Info) Description 05/17/2024 13:00 EDT Office Visit [facility] Endocrinology - [address] [phone] Twyla Mcclellan OXYGEN SYSTEM TESTER [address] [phone] 08/30/2024 14:00 EST Office Visit [facility] Endocrinology - [address] [address] Twyla Mcclellan OXYGEN SYSTEM TESTER [address] [phone] documented as of this encounter Visit Diagnoses Not on filedocumented in this encounter Care Teams Associate Loan Officer Relationship Specialty Start Date End Date Anna Marie Montero MD PCP - General 03/26/10 09/18/10 Phylicia Brown NP [address] [place] [address] PCP - General 01/25/09 03/25/10 Phylicia Brown NP [address] [place] [address] PCP - General 09/19/10 11/20/13 Edmar Temple MD [address] [place] [address] [address] [place] [phone] PCP - General 11/21/13 documented as of this encounter
--- OUTSIDE RECORDS SUMMARY | 2024-04-22 04:30 | XMS_ITS | Encounter Summary ---
Author Organization [facility] Address [address] [place] [address] Care Team Providers Care Bankruptcy Judge Name Role Phone Unavailable Primary Care Provider Unavailabl e Encounter Details Date Type Department Care Team (Late st Contact Info) Description 02/26/2005 16:[address] [facility] - Other [address] [place] [phone] Ashley Dia MD [address] [place] [address], [facility] [address] [place] [phone] Social History Tobacco Use Types Packs/Day Years [...] [facility] End[facility] - [address] [address] Twyla Mcclellan NP 62 [facility] [address] [place] [phone] 08/30/2024 14:[address] [facility] Endocrinology - [facility] [address] [place] [address] Twyla Mcclellan NP 62 [facility] [address] [place] [phone] documented as of this encounter Procedures Procedure Name Priority Date/Time Associated Diagnosis Comments SNF FOLLOW-UP Routine 03/05/2005 15:45 EDT GROUP B STREPTOCOCCUS SUSCEPTIBILITY Routine 02/26/2005 17:11 EDT documented in this encounter Results * SNF FOLLOW-UP (03/05/2005 15:45 EDT) Anatomical Region Laterality Modality Other 03/05/2005 15:4 5 EDT Narrative 05/16/2009 14:55 EDT [id number],GROWTH Please refer to the separate [facility] report. Procedure Note Susi Powell MD - 05/16/2009 [id number],GROWTH Please refer to the separate [facility] report. Viet Vann MD [facility] SNF ORDER [place] * GROUP B STREPTOCOCCUS SUSCEPTIBILITY (02/26/2005 17:11 EDT) Specimen Description Vaginal and Rectal [facility] Result Few STREPTOCOCCUS , BETA HEMOLYTIC GROUP B (STREPTOCOCCU S AGALACTIAE) [facility] Report Status Final [id number] [facility] 02/26/2005 17:1 1 EDT 02/26/2005 17:11 EDT Ashley Dia MD [facility] [address] [place] [address] documented in this encounter Visit Diagnoses Not on filedocumented in this encounter
--- OUTSIDE RECORDS SUMMARY | 2024-04-22 04:30 | XMS_ITS | Encounter Summary ---
Author Organization [facility] Address [address] [place] [address] Care Team Providers Care Correction Lieutenant Name Role Phone Phylicia Brown NP Primary Care Provider Encounter Details Date Type Department Care Team (Latest Contact Info) Description 11/08/2009 9:43 EST Hospital Encounter [facility] - [address] [address] Brielle Mendez, PRINCIPAL AUTOMATION ENGINEER 61 [facility] [address] [phone] Discharge Disposition: Home or Self Care Social History Tobacco Use Types Packs/Day Years Used Date Smoking Tobacco: Never Assessed Sex and Gender Information Value Date Recorded Sex Assigned at Not on file Gender Identity Not on file Sexual Orientation Not on file documented as of this encounter Medications at Time of Discharge Medication Sig Dispensed Refills Start Date End Date CALCIUM CARBONATE/VITAMIN D3 (CALCIUM WITH VITAMIN D ORAL) Take by mouth daily. CYANOCOBALAMIN (VITAMIN B-12 ORAL) Take by mouth daily. FERROUS FUMARATE (IRON ORAL) Take 1 Cap by mouth daily. 06/01/2011 VITAMIN B COMPLEX ORAL Take by mouth daily. ALBUTEROL SULFATE (PROVENTIL INHL) Inhale 2 Puffs as directed as needed. 09/26/2010 citalopram (CELEXA) 20 mg tablet Take 20 mg by mouth daily. 03/27/2011 Ergocalciferol, Vitamin D2, (VITAMIN D) 400 unit Cap Take 400 Units by mouth daily. 04/03/2011 fluticasone (FLONASE) 50 mcg/Actuation nasal spray 1 Left Hand by Nasal route as needed. 09/26/2010 fluticasone-salmeterol (ADVAIR) 500-50 mcg/Dose diskus inhaler Inhale 1 Puff as directed as needed. 09/26/2010 INSULIN ASPART (NOVOLOG SUBQ) Inject into the skin. Basal rate is 20.2 - basal rate plus bolus 26-45 06/30/2010 levothyroxine (SYNTHROID) 25 mcg tablet Take 25 mcg by mouth daily. 11/11/2010 losartan (COZAAR) 100 mg tablet Take 100 mg by mouth daily. 09/26/2010 methyldopa (ALDOMET) 500 mg tablet Take 500 mg by mouth 2 times daily. 03/27/2010 NIFEdipine (PROCARDIA-XL) 30 mg tablet Take 30 mg by mouth daily. pm 03/27/2010 NORETHINDRONE, [id number], (JOLIVETTE ORAL) Take 1 Tab by mouth daily. 03/27/2010 oxycodone (ROXICODONE) 5 mg immediate release tablet Take 1-2 Tabs by mouth every 4 hours as needed for Pain. 40 Tab 0 08/10/2009 03/27/2010 simvastatin (ZOCOR) 20 mg tablet Take 20 mg by mouth at bedtime. 09/26/2010 documented as of this encounter Discharge Disposition Disposition Code Departure Means Destination Home or Self Mcfp documented in this encounter Plan of Treatment Upcoming Encounters Date Type Department Care Team (Late st Contact Info) Description 05/17/2024 13:00 EDT Office Visit [facility] Endocrinology - [address] [phone] Twyla Mcclellan NP [address] [place] [phone] 08/30/2024 14:00 EST Office Visit [facility] Endocrinology [address] [address] Twyla Mcclellan NP [address] [place] [phone] documented as of this encounter Visit Diagnoses Not on filedocumented in this encounter Care Teams Correction Lieutenant Relationship Specialty Start Date End Date Phylicia Brown NP [address] [place] [phone] PCP - General 01/25/09 03/25/10 documented as of this encounter
--- OUTSIDE RECORDS SUMMARY | 2024-04-22 04:30 | XMS_ITS | Encounter Summary ---
Author Organization [facility] Address [address] [place] [address] Care Team Providers Care Sign Erector Name Role Phone Unavailable Primary Care Provider Unavailabl e Encounter Details Date Type Department Care Team (Latest Contact Info) Description 03/13/2005 17:16 EDT Hospital Encounter [facility] Unit [address] [place], [place] [address] Lee Cowan MD Discharge Disposition: Home or Self Care Social [...] Description 05/17/2024 13:00 EDT Office Visit [facility] Endocrinology - [address] [phone] Twyla Mcclellan NP [address] [place] [phone] 08/30/2024 14:00 EST Office Visit [facility] Endocrinology [address] [phone] Twyla Mcclellan NP [address] [place] [phone] documented as of this encounter Visit Diagnoses Not on filedocumented in this encounter
--- OUTSIDE RECORDS SUMMARY | 2024-04-22 04:30 | XMS_ITS | Encounter Summary ---
Author Organization [facility] Address [address] [place] [address] Care Team Providers Care Organic Search Lead Name Role Phone AvilaAll Phylicia STEPHENSON Primary Care Provider Encounter Details Date Type Department Care Team (Latest Contact Info) Description 07/25/2009 12:02 EST - 07/25/2009 23:59 [facility] Hospital Encounter [facility] - [address] [address] Brielle Mendez S, DEMAND PLANNER [address] [phone] Discharge Disposition: Home or Self Care Social History Tobacco Use Types Packs/Day Years Used Date Smoking Tobacco: Never Assessed Sex and Gender Information Value Date Recorded Sex Assigned at Not on file Gender Identity Not on file Sexual Orientation Not on file documented as of this encounter Medications at Time of Discharge Medication Sig Dispensed Refills Start Date End Date ALBUTEROL SULFATE (PROVENTIL INHL) Inhale 2 Puffs as directed as needed. 09/26/2010 citalopram (CELEXA) 20 mg tablet Take 20 mg by mouth daily. 03/27/2011 fluticasone (FLONASE) 50 mcg/Actuation nasal spray 1 [place] by Nasal route as needed. 09/26/2010 fluticasone-salmeterol (ADVAIR) 500-50 mcg/Dose diskus inhaler Inhale 1 Puff as directed as needed. 09/26/2010 INSULIN ASPART (NOVOLOG SUBQ) Inject into the skin. Basal rate is 20.2 - basal rate plus bolus 26-45 06/30/2010 INSULIN GLARGINE,HUM.REC.ANLOG (LANTUS SUBQ) Inject 14 Units into the skin once. Prior to OR 08/10/2009 INSULIN GLARGINE,HUM.REC.ANLOG (LANTUS SUBQ) Inject 85 Units into the skin at bedtime. 08/10/2009 levothyroxine (SYNTHROID) 25 mcg tablet Take 25 mcg by mouth daily. 11/11/2010 losartan (COZAAR) 100 mg tablet Take 100 mg by mouth daily. 09/26/2010 metformin (GLUCOPHAGE) 850 mg tablet Take 850 mg by mouth 3 times daily. 08/10/2009 methyldopa (ALDOMET) 500 mg tablet Take 500 mg by mouth 2 times daily. 03/27/2010 NIFEdipine (PROCARDIA-XL) 30 mg tablet Take 30 mg by mouth daily. pm 03/27/2010 NORETHINDRONE, MSF3820, (JOLIVETTE ORAL) Take 1 Tab by mouth daily. 03/27/2010 oxycodone (ROXICODONE) 5 mg immediate release tablet Take 1-2 Tabs by mouth every 4 hours as needed for Pain. 40 Tab 0 08/10/2009 03/27/2010 PRAMLINTIDE ACETATE (SYMLINPEN 120 SUBQ) Inject 120 Units into the skin 3 times daily. 08/10/2009 simvastatin (ZOCOR) 20 mg tablet Take 20 mg by mouth at bedtime. 09/26/2010 documented as of this encounter Discharge Disposition Disposition Code Departure Means Destination Home or Self Shelter documented in this encounter Plan of Treatment Upcoming Encounters Date Type Department Care Team (Late st Contact Info) Description 05/17/2024 13:00 EDT Office Visit [facility] Endocrinology - [address] [address] Twyla Mcclellan NP [address] [place] [phone] 08/30/2024 14:00 EST Office Visit [facility] Endocrinology [address] [phone] Twyla Mcclellan NP [address] [phone] documented as of this encounter Procedures Procedure Name Priority Date/Time Associated Diagnosis Comments SURGICAL PATHOLOGY Routine 08/07/2009 0: 00 EST VITAMIN D (25,OH) Routine 07/25/2009 12: 12 EST URINE EZCCDIC-YP-BRGIHYMXK E RATIO (ACR) Routine 07/25/2009 12:12 EST COMPLETE BLOOD COUNT Routine 07/25/2009 12:12 EST TSH Routine 07/25/2009 12:12 EST HEMOGLOBIN A1C Routine 07/25/2009 12:12 EST CREATININE Routine 07/25/2009 12:12 EST HEPATIC FUNCTION PANEL (ALB,ALK PHOS,ALT,AST,DBIL,TO T TOMMY,TOT PROT) Routine 07/25/2009 12:12 EST documented in this encounter Results * SURGICAL PATHOLOGY (08/07/2009 0:00 EST) Pathology Report: SURGICAL PATHOLOGY REPORT ? Reports generated via electronic interface contain original data; ? however they are lacking the format of the original report. ? Caution should be taken when reading/interpreti ng unformatted reports. ? Name: ? TERRY, LINDA S ? Accession #: ? [id number] ? : ? 1975 (Age: 34) ??F ? Collect Date: ? 08/07/2009 ? Location: ? B006 ? Receive Date: ? 08/07/2009 ? Provider: MAXX M FORGIONE MD ? Copy to: PHYLICIA AVILA-RISING ORDER PICKER/ASSEMBLER ? Final Pathologic Diagnosis: ? Portion of small intestine, jejunum, resection: ? 1. ?Small intestinal mucosa with superficial mucosal ischemic changes. ?? 2. ? Margins appear viable. ? Document reviewed and electronically signed by: ? Loretta N. Kalof, MD ? Report ??Date: 08/09/2009 15:32 ? By the signature above, the attending physician certifies that he/she has ? personally conducted a gross and/or microscopic examination of the described ? specimens and rendered or confirmed the above diagnosis. ? Specimen(s) Received: ? Portion jejunum ? Clinical History: ? Morbid obesity ? Gross Description: ? Received fresh labelled TerryLinda S and portion of jejunum is a closed segment of bowel with one end with rodrigo and the opposite end without. The specimen measures 5.2 cm in length with an internal circumference of 7.5 cm. One-half of the mucosal surface on the non-stapled end is purple-red, mucoid, ?? soft and friable. ??The other half towards the stapled end is pink-trejo, folded ?? without any gross abnormality is identified. ??The serosal surface is pink-trejo, ?? smooth and glistening with a minimal amount of pericolonic adipose attached. ? The wall thickness measures 0.1 cm. ??Radiology Physician sections are submitted as ?? follows: ? BLOCK JUDD ? A1 ?Section adjacent to stapled margin ? A2 ?Section adjacent to margin on opposite end ? A3 ?Two manufacturer representative sections of dusky area ? A4 ?One section of junction between normal mucosa and dusky mucosa ? A5 ?Two manufacturer representative sections of normal bowel mucosa ? (K. Tatsumi)/mpl ? End of Report ? [facility] 08/07/2009 08/07/2009 13: 56 EST Maxx Amador MD PATHOLOGY OR DERABLES Performing Organization Address [facility] de Phone Number [facility] [address] [place] [address] * (ABNORMAL) MICROALBUMIN (07/25/2009 12:12 EST) Creatinine, Urn Norman 128.0 mg/dl [facility] Ur Albumin mg/dl 2.7(H) <1.9 mg/dl [facility] Ur Alb ug/mg Crea 21.1 ug/mg Crea [facility] Comment: Normal: ??<30 ug/mg Creat Microalbuminuria: ??30-300 ug/mg Creat Clinical albuminuria: ??>300 ug/mg Creat 07/25/2009 12:1 2 EST 07/25/2009 12:14 EST Brielle Mendez APRN CHEMISTRY & BLOOD GAS ORDERABLES Performing Organization Address [facility] de Phone Number [facility] [address] [place] [address] * 25 [place] VITAMIN D TOTAL (07/25/2009 12:12 EST) 25OH Vitamin D Tot 34.3 ng/ml [facility] Comment: Reference Range: <10 ng/ml: Deficient 10-30 ng/ml: Insufficient 30-100 ng/ml: Sufficient >100 ng/ml: Toxic 07/25/2009 12:1 2 EST 07/25/2009 12:14 EST Brielle Jarret Andrea CONDEN CHEMISTRY & BLOOD GAS ORDERABLES Performing Organization Address [facility] Phone Number [facility] [address] [place] [address] * TSH (07/25/2009 12:12 EST) TSH 0.96 0.35 - 5.00 uIU/ml [facility] 07/25/2009 12:1 2 EST 07/25/2009 12:14 EST Brielle Jarret Andrea CONDEN CHEMISTRY & BLOOD GAS ORDERABLES Performing Organization Address [facility] Phone Number [facility] [address] [place] [address] * (ABNORMAL) LIVER FUNCTION TESTS (07/25/2009 12:12 EST) Albumin 4.5 3.4 - 4.9 g/dl [facility] Total Protein 7.4 6.5 - 8.3 g/dl [facility] Alkaline Phosphatase 85 38 - 126 U/L [facility] ALT 57(H) 9 - 52 U/L [facility] AST 46 15 - 46 U/L [facility] Unconjugated Bilirubin 1.3(H) 0.1 - 1.1 mg/dl [facility] Conjugated Bilirubin 0.0 0.0 - 0.3 mg/dl [facility] Bilirubin, Total 1.2 0.2 - 1.3 mg/dl [facility] 07/25/2009 12:1 2 EST 07/25/2009 12:14 EST Brielle Jarret Andrea CONDEN CHEMISTRY & BLOOD GAS ORDERABLES Performing Organization Address [facility] de Phone Number [facility] [address] [place] [address] * HEMOGLOBIN A1C (07/25/2009 12:12 EST) Hemoglobin A1C 8.6 % [facility] Comment: Reference Range: <6% Normal Range ADA guidelines: The A1c goal for non adults in general is <7% The A1c goal for selected individual patients is as close to normal (<6%) as possible without significant hypoglycemia. Est Avg Glucose 200 mg/dl [facility] Comment: eAG represents the A1c result expressed as average glucose in mg/dl. 07/25/2009 12:1 2 EST 07/25/2009 12:14 EST Brielle Mendez APRN CHEMISTRY & BLOOD GAS ORDERABLES Performing Organization Address [facility] Co de Phone Number [facility] [address] [place] [address] * (ABNORMAL) CREATININE (07/25/2009 12:12 EST) Creatinine 0.64(L) 0.7 - 1.5 mg/dl [facility] GFR, Calculated >60 ml/min/1.7 3m2 [facility] 07/25/2009 12:1 2 EST 07/25/2009 12:14 EST Brielle Mendez APRN CHEMISTRY & BLOOD GAS ORDERABLES Performing Organization Address [facility] de Phone Number [facility] [address] [place] [address] * (ABNORMAL) HEMAGRAM (07/25/2009 12:12 EST) WBC 8.49 4.0 - 12.4 K/cmm [facility] RBC 4.98 3.86 - 5.04 M/cmm [facility] Hemoglobin 13.0 11.6 - 15.2 gm/dl [facility] HCT 39.1 34.9 - 44.4 % [facility] MCV 78(L) 81 - 98 fl [facility] MCH 26.1(L) 26.7 - 33.3 pg [facility] MCHC 33.3 32.1 - 35.9 gm/dl [facility] PLT 281 141 - 320 K/cmm [facility] RDW-CV 15.7(H) 11.7 - 14.6 % [facility] 07/25/2009 12:1 2 EST 07/25/2009 12:14 EST Brielle S Andrea DEMAND PLANNER HEMATOLOGY & PF4 ORDERABLES Performing Organization Address City/State/[facility] Co de Phone Number [facility] [address] [place] [address] documented in this encounter Visit Diagnoses Not on filedocumented in this encounter Care Teams Organic Search Lead Relationship Specialty Start Date End Date Phylicia Brown NP [address] [place] [phone] PCP - General 01/25/09 03/25/10 documented as of this encounter
--- OUTSIDE RECORDS SUMMARY | 2024-04-22 04:30 | XMS_ITS | Encounter Summary ---
Author Organization [facility] Address [address] [place] [address] Care Team Providers Care Industrial Tractor Driver Name Role Phone Unavailable Primary Care Provider Unavailabl e Encounter Details Date Type Department Care Team (Latest Contact Info) Description 08/06/2008 13:46 EST Hospital Encounter [facility] - Maple conversion [address] [place] [address] Brielle Mendez, LOGISTICS SOLUTION MANAGER [address] [address] Discharge Disposition: Auto Discharge Social History Tobacco [...] Description 05/17/2024 13:00 EDT Office Visit [facility] Endocrinology - [facility] [address] [place] [address] Twyla Mcclellan NP [address] [place] [phone] 08/30/2024 14:00 EST Office Visit [facility] Endocrinology - [facility] [address] [place] [address] Twyla Mcclellan NP [address] [phone] documented as of this encounter Visit Diagnoses Not on filedocumented in this encounter
--- OUTSIDE RECORDS SUMMARY | 2024-04-22 04:30 | XMS_ITS | Encounter Summary ---
Author Organization [facility] Address [address] [place] [address] Care Team Providers Care Refining Engineer Name Role Phone Phylicia Brown UNION REPRESENTATIVE Primary Care Provider Encounter Details Date Type Department Care Team (Late st Contact Info) Description 08/23/2009 Abstract [facility] Bariatric Surgery [facility] [address] [place] [address] Phylicia Brown, SACHIN [address] [place], [place] [phone] Social History Tobacco Use Types Packs/Day Years [...] EDT Office Visit [facility] Endocrinology - [address] [address] Twyla Mcclellan NP [address] [place] [phone] 08/30/2024 14:00 EST Office Visit [facility] Endocrinology [address] [address] Twyla Mcclellan NP [address] [place] [phone] documented as of this encounter Visit Diagnoses Not on filedocumented in this encounter Care Teams Refining Engineer Relationship Specialty Start Date End Date Phylicia Brown NP [address] [place] [phone] PCP - General 01/25/09 03/25/10 documented as of this encounter
--- OUTSIDE RECORDS SUMMARY | 2024-04-22 04:30 | XMS_ITS | Encounter Summary ---
Author Organization [facility] Address [address] [place] [address] Care Team Providers Care Automatic Drill Operator Name Role Phone Phylicia Brown LEARNING DESIGNER Primary Care Provider Encounter Details Date Type Department Care Team (Late st Contact Info) Description 11/01/2009 Abstract [facility] Bariatric Surgery [facility] [address] [place] [address] Phylicia Brown, SACHIN [address] [place], [place] [phone] Social History Tobacco Use Types Packs/Day Years Used Date Smoking Tobacco: Never Assessed Sex and Gender Information Value Date Recorded Sex Assigned at Not on file Gender Identity Not on file Sexual Orientation Not on file documented as of this encounter Plan of Treatment Upcoming Encounters Date Type Department Care Team (Late st Contact Info) Description 05/17/2024 13:00 EDT Office Visit [facility] Endocrinology - [address] [address] Twyla Mcclellan NP [address] [place] [phone] 08/30/2024 14:00 EST Office Visit [facility] Endocrinology [address] [address] Twyla Mcclellan NP [address] [place] [phone] documented as of this encounter Visit Diagnoses Not on filedocumented in this encounter Historical Medications * This list may reflect changes made after this encounter. Medication Sig Dispensed Refills Start Date End Date CALCIUM CARBONATE/VITAMIN D3 (CALCIUM WITH VITAMIN D ORAL) Take by mouth daily. FERROUS FUMARATE (IRON ORAL) Take 1 Cap by mouth daily. 06/01/2011 CYANOCOBALAMIN (VITAMIN B-12 ORAL) Take by mouth daily. VITAMIN B COMPLEX ORAL Take by mouth daily. Ergocalciferol, Vitamin D2, (VITAMIN D) 400 unit Cap Take 400 Units by mouth daily. 04/03/2011 added in this encounter Care Teams Automatic Drill Operator Relationship Specialty Start Date End Date Phylicia Brown NP [address] [place] [phone] PCP - General 01/25/09 03/25/10 documented as of this encounter
--- OUTSIDE RECORDS SUMMARY | 2024-04-22 04:30 | XMS_ITS | Encounter Summary ---
Author Organization [facility] Address [address] [place] [address] Care Team Providers Care Supervisor Assembling Name Role Phone Unavailable Primary Care Provider Unavailabl e Encounter Details Date Type Department Care Team (Late st Contact Info) Description 11/19/2008 13:10 EST Hospital Encounter [facility] - Maple conversion [address] [place] [address] Brielle Mendez, RETREAD BUILDER [address] [facility] [address] [address] Social History Tobacco Use Types Packs/Day Years [...] Office Visit [facility] Endocrinology - [address] [phone] Twyla Mcclellan NP [address] [place] [phone] 08/30/2024 14:00 EST Office Visit [facility] Endocrinology - [address] [address] Twyla Mcclellan NP [address] [place] [phone] documented as of this encounter Visit Diagnoses Not on filedocumented in this encounter
--- OUTSIDE RECORDS SUMMARY | 2024-04-22 04:30 | XMS_ITS | Encounter Summary ---
Author Organization [facility] Address [address] [place] [address] Care Team Providers Care Certified Scrum Master Name Role Phone Unavailable Primary Care Provider Unavailabl e Encounter Details Date Type Department Care Team (Late st Contact Info) Description 10/28/2004 18:38 EST Hospital Encounter [facility] - Other [address] [place] [address] Kelsi Chambers MD Social History Tobacco Use Types Packs/Day Years [...] EDT Office Visit [facility] Endocrinology - [facility] [address] [place] [address] Twyla Mcclellan NP 62 [facility] [address] [place] [phone] 08/30/2024 14:00 EST Office Visit [facility] Endocrinology - [place] [address] [place] [address] Twyla Mcclellan, SOFTWARE QUALITY ASSURANCE ANALYST [address] [facility] [address] [place] [phone] documented as of this encounter Procedures Procedure Name Priority Date/Time Associated Diagnosis Comments USP ECHOCARDIOGRAM Routine 12/09/2004 16:00 EST USP DETAILED Routine 11/04/2004 16:30 EST documented in this encounter Results * USP ECHOCARDIOGRAM (12/09/2004 16:00 EST) Anatomical Region Laterality Modality Other 12/09/2004 16:0 0 EST Narrative 05/17/2009 11:16 EDT ECHOCARDIOGRAM, RSC FROM DEC 03 Please see separate Echocardiography report. Procedure Note Viet Vann MD - 05/17/2009 ECHOCARDIOGRAM, RSC FROM DEC 03 Please see separate Echocardiography report. Viet Vann MD G USP ORDER MAXWELL * USP DETAILED (11/04/2004 16:30 EST) Anatomical Region Laterality Modality Other 11/04/2004 16:3 0 EST Narrative 05/23/2009 13:48 EDT DETAILED/DIABETIC Please refer to the separate [facility] report. Procedure Note Viet Vann MD - 05/23/2009 DETAILED/DIABETIC Please refer to the separate [facility] report. Lee Cowan MD IMG USP ORDERABLE S documented in this encounter Visit Diagnoses Not on filedocumented in this encounter
--- OUTSIDE RECORDS SUMMARY | 2024-04-22 04:30 | XMS_ITS | Encounter Summary ---
Author Organization [facility] Address [address] [place] [address] Care Team Providers Care Fertilizer Processing Supervisor Name Role Phone Unavailable Primary Care Provider Unavailabl e Encounter Details Date Type Department Care Team (Late Contact Info) Description 01/13/2005 14:50 EDT Hospital Encounter [facility] - [address] [address] Kelsi Chambers MD Social History Tobacco Use [...] Encounters Date Type Department Care Team (Late Contact Info) Description 05/17/2024 13:00 EDT Office Visit [facility] Endocrinology - [facility] [address] [place] [address] Twyla Mcclellan NP 62 [facility] [address] [place] [phone] 08/30/2024 14:00 EST Office Visit [facility] Endocrinology - [place] [address] [place] [address] Twyla Mcclellan, REGIONAL DIRECTOR OF FINANCE [address] [facility] [address] [place] [phone] documented as of this encounter Procedures Procedure Name Priority Date/Time Associated Diagnosis Comments CREATININE Routine 02/26/2005 16:12 EDT COMPLETE BLOOD COUNT Routine 02/26/2005 16:12 EDT URIC ACID Routine 02/26/2005 16:12 EDT BUN Routine 02/26/2005 16:12 EDT ALT Routine 02/26/2005 16:12 EDT AST Routine 02/26/2005 16:12 EDT RESIDENTIAL POOL- AMNIOTIC FLUID INDEX Routine 02/26/2005 15:30 EDT RESIDENTIAL FOLLOW-UP Routine 02/09/2005 15:30 EDT RESIDENTIAL FOLLOW-UP Routine 01/13/2005 16:00 EDT COMPLETE BLOOD COUNT Routine 01/13/2005 14:55 EDT HEMOGLOBIN A1C Routine 01/13/2005 14:55 EDT documented in this encounter Results * URIC ACID (02/26/2005 16:12 EDT) Uric Acid 3.0 2.2 - 7.7 mg/dl [facility] 02/26/2005 16:1 2 EDT 02/26/2005 16:18 EDT Ashley Dia MD CHEMISTRY & BLOOD GAS ORDERABLES Performing Organization Address [facility] Co de Phone Number [facility] [address] [place] [address] * (ABNORMAL) CREATININE (02/26/2005 16:12 EDT) Creatinine 0.6(L) 0.7 - 1.5 mg/dl [facility] 02/26/2005 16:1 2 EDT 02/26/2005 16:18 EDT Ashley Dia MD HISTORICAL LAB FOR SQ LOAD Performing Organization Address [facility] de Phone Number [facility] [address] [place] [address] * (ABNORMAL) HEMAGRAM (02/26/2005 16:12 EDT) WBC 10.10 4.0 - 12.4 K/cmm [facility] RBC 4.73 3.86 - 5.04 M/cmm [facility] Hemoglobin 13.0 11.6 - 15.2 gm/dl [facility] HCT 38.1 34.9 - 44.4 % [facility] MCV 80(L) 81 - 98 fl [facility] MCH 27.5 26.7 - 33.3 pg [facility] MCHC 34.2 32.1 - 35.9 gm/dl [facility] PLT 247 141 - 320 K/cmm [facility] RDW-CV 15.7(H) 11.7 - 14.6 % [facility] 02/26/2005 16:1 2 EDT 02/26/2005 16:18 EDT Ashley Dia MD HEMATOLOGY & PF4 O RDERABLES Performing Organization Address [facility] Co de Phone Number [facility] [address] [place] [address] * (ABNORMAL) BUN (02/26/2005 16:12 EDT) BUN 6(L) 10 - 26 mg/dl [facility] 02/26/2005 16:1 2 EDT 02/26/2005 16:18 EDT Ashley Dia MD CHEMISTRY & BLOOD GAS ORDERABLES Performing Organization Address [facility] de Phone Number [facility] [address] [place] [address] * AST (02/26/2005 16:12 EDT) AST 20 15 - 46 U/L [facility] 02/26/2005 16:1 2 EDT 02/26/2005 16:18 EDT Ashley Dia MD CHEMISTRY & BLOOD GAS ORDERABLES Performing Organization Address [facility] de Phone Number [facility] [address] [place] [address] * ALT (02/26/2005 16:12 EDT) ALT 17 9 - 52 U/L [facility] 02/26/2005 16:1 2 EDT 02/26/2005 16:18 EDT Ashley Dia MD CHEMISTRY & BLOOD GAS ORDERABLES Performing Organization Address [facility] de Phone Number [facility] [address] [place] [address] * RESIDENTIAL POOL- AMNIOTIC FLUID INDEX (02/26/2005 15:30 EDT) Anatomical Region Laterality Modality Other 02/26/2005 15:3 0 EDT Narrative 05/16/2009 14:55 EDT POOL Please refer to the separate [facility] report. Procedure Note Viet Vann MD - 05/16/2009 POOL Please refer to the separate [facility] report. Kelsi Chambers MD [facility] RESIDENTIAL ORDERABLE S * RESIDENTIAL FOLLOW-UP (02/09/2005 15:30 EDT) Anatomical Region Laterality Modality Other 02/09/2005 15:3 0 EDT Narrative 05/20/2009 10:47 EDT FOLLOW UP/DIABETIC/HTN/OBESITY Please refer to the separate [facility] report. Procedure Note Viet Vann MD - 05/20/2009 FOLLOW UP/DIABETIC/HTN/OBESITY Please refer to the separate [facility] report. Viet Vann MD [facility] ORDER MAXWELL * RESIDENTIAL FOLLOW-UP (01/13/2005 16:00 EDT) Anatomical Region Laterality Modality Other 01/13/2005 16:0 0 EDT Narrative 05/16/2009 12:52 EDT [id number],MATERNAL DIABETES Please refer to the separate [facility] report. Procedure Note Lee Cowan MD - 05/16/2009 [id number],MATERNAL DIABETES Please refer to the separate [facility] report. Viet Vann MD [facility] ORDER MAXWELL * (ABNORMAL) HEMAGRAM (01/13/2005 14:55 EDT) WBC 10.87 4.0 - 12.4 K/cmm [facility] RBC 4.72 3.86 - 5.04 M/cmm [facility] Hemoglobin 13.1 11.6 - 15.2 gm/dl [facility] HCT 38.9 34.9 - 44.4 % [facility] MCV 82 81 - 98 fl [facility] MCH 27.8 26.7 - 33.3 pg [facility] MCHC 33.8 32.1 - 35.9 gm/dl [facility] PLT 270 141 - 320 K/cmm [facility] RDW-CV 14.7(H) 11.7 - 14.6 % [facility] 01/13/2005 14:5 5 EDT 01/13/2005 15:01 EDT Kelsi Chambers MD HEMATOLOGY & PF4 ORD ERABLES [facility] [address] [place] [address] * HEMOGLOBIN A1C (01/13/2005 14:55 EDT) Hemoglobin A1C 5.9 % [facility] Comment: Reference Range: <6% Normal Range <7% Recommended goal by ADA guidelines 7-8% Suboptimal by ADA guidelines >8% Further action suggested by ADA guidelines 01/13/2005 14:5 5 EDT 01/13/2005 15:01 EDT Kelsi Chambers MD CHEMISTRY & BLOOD GA S ORDERABLES [facility] [address] [place] [address] documented in this encounter Visit Diagnoses Not on filedocumented in this encounter
--- OUTSIDE RECORDS SUMMARY | 2024-04-22 04:30 | XMS_ITS | Encounter Summary ---
Author Organization [facility] Address [address] [place] [address] Care Team Providers Care Fashion Coordinator Name Role Phone Unavailable Primary Care Provider Unavailabl e Encounter Details Date Type Department Care Team (Late st Contact Info) Description 09/25/2008 8:07 EST Hospital Encounter [facility] - [facility] [address] [place] [address] Brielle Mendez, THERAPIST OCCUPATIONAL [address] [facility] [address] [address] Social History Tobacco Use Types Packs/Day Years [...] Office Visit [facility] Endocrinology - [address] [phone] Twyla Mcclellan NP [address] [facility] [address] [place] [address] 08/30/2024 14:00 EST Office Visit [facility] Endocrinology - [facility] [address] [place] [address] Twyla Mcclellan NP [address] [facility] [address] [place] [address] documented as of this encounter Procedures Procedure Name Priority Date/Time Associated Diagnosis Comments SURGICAL PATHOLOGY Routine 03/19/2009 0:00 EDT CYTOPATHOLOGY Routine 10/30/2008 0:00 EST documented in this encounter Results * SURGICAL PATHOLOGY (03/19/2009 0:00 EDT) Pathology Report: SURGICAL PATHOLOGY REPORT ? Reports generated via electronic interface contain original data; ? however they are lacking the format of the original report. ? Caution should be taken when reading/interpretin g unformatted reports. ? Name: ? LINDA STEWART ? Accession #: ? [id number] ? : ? 1975 (Age: 34) ??F ? Collect Date: ? 03/19/2009 ? Location: ? [facility] ? Receive Date: ? 03/19/2009 ? Provider: MAXX M FORGIONE MD ? Copy to: [facility] ? Final Pathologic Diagnosis: ? Gastroesophageal junction, biopsy: ? 1. ?Squamous and glandular mucosa with chronic inflammation and reactive changes. ? 2. ? No intestinal metaplasia identified. ? 3. ? No dysplasia identified. ? Document reviewed and electronically signed by: ? BORIS KABA MD ? Report ??Date: 03/20/2009 12:37 ? By the signature above, the attending physician certifies that he/she has ? personally conducted a gross and/or microscopic examination of the described ? specimens and rendered or confirmed the above diagnosis. ? Specimen(s) Received: ? GE jxn ? Clinical History: ? Preop gastric bypass, H/O GERD; R/O Diaz's ? Gross Description: ? Received in Hollande's fixative labelled Terry, Linda and GE ? junction R/O Diaz's is a trejo-pink, 0.3 x 0.3 x 0.2 cm soft tissue fragment. The specimen is entirely submitted in one cassette. ??(Pradeep Billy)/cjh ? End of Report ? [facility] 03/19/2009 03/19/2009 13: 52 EDT Maxx Aamdor MD PATHOLOGY OR DERABLES [facility] [address] [place] [address] * CYTOPATHOLOGY (10/30/2008 0:00 EST) Pathology Report: CYTOPATHOLOGY REPORT ? Reports generated via electronic interface contain original data; ? however they are lacking the format of the original report. ? Caution should be taken when reading/interpreti ng unformatted reports. ? Name: ? LINDA STEWART ? Accession #: ? [id number] ? : ? 1975 (Age: 33) ??F ?Collect Date: ? 10/30/2008 ? Location: ? [facility] ? Receive Date: ? 11/01/2008 ? Provider: ? [facility] ? Copy to: ? Specimen Type: ? Urine, Voided ? Clinical History: ? Not listed ? Gross Description: ? 120cc' s of cloudy yellow fluid with ETOH added were received and processed by selective cellular enhancement technique. ? CYTOLOGIC DIAGNOSIS: ? Urine, voided, cytologic evaluation: ? - No malignant cells identified. ? - Scant urothelial cells and squames present. ? Document reviewed and electronically signed by: ? ALVARO ISLAS MD [facility] ? Report Date: ??11/01/2008 18:46 ? By the signature above, the attending physician certifies that he/she has ? personally conducted a gross and/or microscopic examination of the described ? specimens and rendered or confirmed the above diagnosis. ? End of Report ? [facility] 10/30/2008 11/01/2008 8:4 1 EST Phylicia Brown [facility] PATHOLOGY ORDER [facility] [address] [place] [address] documented in this encounter Visit Diagnoses Not on filedocumented in this encounter
--- OUTSIDE RECORDS SUMMARY | 2024-04-22 04:30 | XMS_ITS | Encounter Summary ---
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 Name Role Phone RossPhylicia Carrizales NP Primary Care Provider Reason for Referral * Consult (Routine) - Closed Specialty Diagnoses / Procedures Referred By Conttrenton hawkins Referred To Contact Diagnoses Morbid obesity ([facility]) Gustavo Grande, MARCUS-C [address] [facility] [address] [place] [address] Referral ID Status Reason Start Date Expiration Date V isits Requested Visits Authorized [id number] Closed Specialty Services Required 08/09/2009 1 1 Question Answer Reason for Request: wound care Alf Referral - Assessment: Wound Care Comments nugauze packing in LUQ abdominal wound once daily Encounter Details Date Type Department Care Team (Latest Contact Info) Description 08/07/2009 6:02 EST - 08/10/2009 14:00 EST Hospital Encounter [facility] General Surgery Unit [address] [place] [address] Maxx Amador MD [address] [place] [phone] Morbid Obesity (HCC-CMS) Discharge Disposition: Home-Health Care Svc Social History Tobacco Use Types Packs/Day Years Used Date Smoking Tobacco: Never Assessed Sex and Gender Information Value Date Recorded Sex Assigned at Not on file Gender Identity Not on file Sexual Orientation Not on file documented as of this encounter Last Filed Vital Signs Vital Sign Reading Time Taken Comments Blood Pressure 124/66 08/10/2009 0727 EST Pulse 92 08/10/2009 07 EST Temperature 37.2 ??C (99 ??F) 08/10/2009 07 EST Respiratory Rate 20 08/10/2009 07 EST Oxygen Saturation 95% 08/10/2009 07 EST Inhaled Oxygen Concentration - - Weight 135.6 kg (299 lb) 07/25/2009 1512 EST Height 171.5 cm (5' 7.5) 07/25/2009 1512 EST Body Mass Index 46.14 07/25/2009 1512 EST documented in this encounter Discharge Summaries * Lorelei Claire MD - 08/09/2009 1328 EST Discharge Summary Chief Complaint/Reason for Admission: Morbid obesity Principal/Final Diagnosis: Morbid obesity Principal Procedure: Lap gastric bypass Date: 08/07/2009 Secondary Procedures: none Prognosis: Good Condition at Discharge: Good Relevant Studies at Discharge: none Assessment at Discharge: Vital signs: Patient Vitals in the past 12 hrs: BP Temp Temp src Pulse Resp SpO2 Height Wt - Scale 08/10/09726 124/66 mmHg 37.2 ??C (99 ??F) Tympanic 92 20 95 % - - 08/10/09 0330 112/66 mmHg 37.2 ??C (99 ??F) Tympanic 81 18 94 % - - Hospital Course: This 34 year old female was evaluated in the bariatric clinic. She had a lap gastric bypass on 08/07 with no complications. She was sent to the SICU overnight for an insulin drip. Her insulin drip was discontinued on POD1 and she was transferred to the floor. She did well. Her dietwas advanced per the gastric bypass protocol which she tolerated well. She was seen by endocrine dur ing her stay and they made final recommendations as to her insulin/diabetes management on the day of discharge. She is discharged home and will follow up in 2 weeks. Relevant Studies at Discharge: none Last Lab Results at Discharge: n/a Discharge Summary Completed: 08/10/09 documented in this encounter Discharge Instructions * Discharge Instructions* Lorelei Claire MD - 08/10/2009 12:30 EST Diet: No straws or carbonated beverages clear liquids through 08/11, then start full liquids until follow up visit. Activity: No heavy lifting or strenuous activity for 6 weeks Driving: No driving while taking narcotic pain medication Skin/Wound Care: Okay to get wound wet, but pat dry. Do NOT rub the wound area. Let Steri-Strips fall off on their own. Call your provider for problems with stiches, redness, pain, drainage or if stiches pull apart. Bathing: Okay to get wound wet, but pat dry. Do NOT rub the wound area. Shower only Pending Results: Not applicable Symptoms to Call Your Doctor About: Chest pain (angina) Fever greater than 101 or chills Inability to swallow or increasing difficulty swallowing Nausea or vomiting Shortness of breath or rapid breathing Signs of infection such as pain, redness, swelling or drainage at procedure or wound site Appointments: See Maxx Brewer MD in 2 weeks. Please call [phone] for [address] appointment[address] See Dr. PHYLICIA BROWN MD as needed. Please call for an appointment. Follow-up with Lazara Aquino in endocrinology. Please call [phone] on Wednesday to set up an appointment. Follow-up Services Contacted at Discharge: Attending physician Health Risk and Disease Information: Not applicable documented in this encounter Medications at Time of Discharge Medication Sig Dispensed Refills Start Date End Date ALBUTEROL SULFATE (PROVENTIL INHL) Inhale 2 Puffs as directed as needed. 09/26/2010 citalopram (CELEXA) 20 mg tablet Take 20 mg by mouth daily. 03/27/2011 fluticasone (FLONASE) 50 mcg/Actuation nasal spray 1 [place] by Nasal route as needed. 09/26/2010 fluticasone-salmeterol [...] mg by mouth daily. pm 03/27/2010 NORETHINDRONE, [id number], (JOLIVETTE ORAL) Take 1 Tab by mouth daily. 03/27/2010 oxycodone (ROXICODONE) 5 mg immediate release tablet Take 1-2 Tabs by mouth every 4 hours as needed for Pain. 40 Tab 0 08/10/2009 03/27/2010 simvastatin (ZOCOR) 20 mg tablet Take 20 mg by mouth at bedtime. 09/26/2010 documented as of this encounter Ordered Prescriptions Prescription Sig Dispensed Refills Start Date End Da te oxycodone (ROXICODONE) 5 mg immediate release tablet Take 1-2 Tabs by mouth every 4 hours as needed for Pain. 40 Tab 0 08/10/2009 03/27/2010 documented in this encounter Discharge Disposition Disposition Code Departure Means Destination Home-Health Care [facility] documented in this encounter Progress Notes * Inpatient, Physician - 08/14/2009 1336 EST * Kath Sutherland - 08/12/2009 0852 EST Discharge Note Pt discharged home with support of Sudheer Sutherland RN BSN CCM [id number] * Sara Feliz - 08/10/2009 0913 EST Endo Progress Note Admit Date : 08/07/2009 Subjective: Endocrine Consult Service Chief Complaint: Admitted for gastric bypass. Reason for consult: Diabetic management. HPI: 34 yr old woman with multiple medical problems including morbid obesity, Type 2 diabetes on insulin, sleep apnea on CPAP, admitted electively for a gastric bypass. Preop her DM was being managedwith glargine, metformin and an insulin pump and symlin. She was dx with DM in 1999 and was on oralagents for about 5 yrs and then transitioned to insulin and an insulin pump. She has been seen by Lazara Aquino in Endo clinic on 04/19/09. At that time her pump requirements were quite high and she was frequently changing her cartridge so Lazara started her on lantus 85 unit hs to lower her pump requirements. She checks her blood sugars 4x daily and says that her blood sugars fasting are in the low 100s. Pre lunch and predinner are in kurt 170s and her HS blood sugars are slightly higer. Her A1c from 07/25/09 is 8.6 suggestive of even higher blood sugars. She does not have any complications of her DM that she is aware of. She has done very well post operatively and her blood sugars have been managed with glargine and an aspart supplemental scale. Her glargine has been dosed daily since her insulin requirements may change post operatively. Objective: VS: Patient Vitals in the past 8 hrs: BP Temp Temp src Pulse Resp SpO2 Height Wt - Scale 08/10/09 0727 124/66 mmHg 37.2 ??C (99 ??F) Tympanic 92 20 95 % - - 08/10/09 0330 112/66 mmHg 37.2 ??C (99 ??F) Tympanic 81 18 94 % - - General: AAOx3 but sleepy Heart RRR normal s1s2 no m/r/g Lungs CTA B/L Abd S/NT/ND -bowel sounds ext no c/c/e Data Review: CBC: Lab Results Component Value Date/Time ??? WBC 11.28 08/08/09 4:13 AM ??? RBC 4.68 08/08/09 4:13 AM ??? HGB 12.3 08/08/09 4:13 AM ??? HCT 36.0 08/08/09 4:13 AM ??? MCV 77 08/08/09 4:13 AM ??? MCH 26.4 08/08/09 4:13 AM ??? MCHC 34.3 08/08/09 4:13 AM ??? PLT 261 08/08/09 4:13 AM , BMP: Lab Results Component Value Date/Time ??? GLUCOSEFINGE 163 08/10/09 5:47 AM ??? CREATININE 0.64 07/25/09 12:12 PM nor Coagulation: No results found for this basename: PROTIME,LABINR,PTT A1c 8.6 on 07/25/09 Recent Labs Basename 08/10/09 0547 08/09/09 2323 08/09/09 2115 08/09/09 1805 08/09/09 1158 08/09/09 0548 08/09/09 08/08/09 1803 08/08/09 1208 08/08/09 1008 08/08/09 0804 08/08/09 0651 ??? GLUCOSEFINGE 163* 172* 166* 237* 242* 259* 234* 203* 131* 126* 119* 121* Assessment: This is a 34 yr female with morbid obesity now post op day 2 s/p gastric bypass. Her blood sugar control at home has been suboptimal based on her A1C of 8.6. Has received 100 units of glargine daily for the last two days. Yesterday she also received 31 units of supplemental glargine. Plan: DM2: Will give 40 units of glargine now and restart her insulin pump at her home basal rates. Her home basal rates provided 44.5 units in 24 hours. This will give her a total of about 85 units in 24 hours. This is a cautious dose to prevent hypoglycemia and she will check her blood sugars frequently for the next 3-4 days and bolus based on a correction factor of 1:20 for blood sugars over 150 until her new post operative insulin requirements are established. We will hold her symlin and Metformin for now to prevent nausea in the post op period. She can restart those once she has fully recovered. She will call the office on Wednesday morning to ilda f/u with Lazara Aquino early next week to further adjust her insulin doses. * Lorelei Claire MD - 08/10/2009 0901 EST Blue Surgery DAILY PROGRESS NOTE Hospital LOS: 3 days 24 hour events: none S: Pain is controlled Patient has had Flatus. Patient has had no Nausea. O: Vitals: Blood pressure 124/66, pulse 92, temperature 37.2 ??C (99 ??F), temperature source Tympanic, resp. rate 20, height 1.715 m (5' 7.5), weight 135.626 kg (299 lb), SpO2 95%. I+O last shift: I+O last 3 shifts: In: 640 (640 P.O.) Out: 2610 (2550 Urine 60 Drains) Current Diet: Gastric Bypass Current Scheduled Meds: fluticasone-salmeterol 1 Puff Q12H NIFEdipine 30 mg DAILY methyldopa 500 mg Q12H losartan 100 mg DAILY simvastatin 20 mg QHS citalopram 20 mg DAILY levothyroxine 25 mcg DAILY pneumococcal vaccine (PPV23) 0.5 mL ONCE insulin aspart Q6H albuterol 2 Puff QID fluticasone 1 Brighton BID Labs: Lab Results Component Value Date/Time ??? WBC 11.28 08/08/09 4:13 AM ??? HGB 12.3 08/08/09 4:13 AM ??? HCT 36.0 08/08/09 4:13 AM ??? PLT 261 08/08/09 4:13 AM ??? CREATININE 0.64 07/25/09 12:12 PM ??? GLUCOSEFINGE 163 08/10/09 5:47 AM Physical Exam: General appearance: alert, cooperative, no distress Lungs: clear to auscultation bilaterally Heart: regular rate and rhythm, S1, S2 normal, no murmur, click, rub or gallop Abdomen:+BS, obese, soft, NT, ND, incisions with steri stris intact Extremities: extremities normal, atraumatic, no cyanosis or edema Drains: serosang A: POD#3 s/p lap gastric bypass. On pathyway and ready to go home Patient Active Problem List Diagnoses Code ??? Morbid Obesity 278.01 ??? Diabetes 250.00Q ??? Sleep Apnea 780.57C ??? Status Post Gastric Bypass for Obesity V45.86J ??? Hypothyroid 244.9AR ??? Asthma 493.90AE P: F/u endocrine recs Replace wick D/C IAN drain D/c home * Kath Sutherland - 08/09/2009 1453 EST This patient has been assessed using the [facility] Case Management risk screen. CM met with pt today postop day 2 lap gastric banding for overnight stay in ICU.Pt feels well and is ready for discharge tomorrow.She is on pathway.Pt resides with and 4 yo in [place].Her mother will be staying with her to assist.Pt will require daily wound care to portal site.Pt offered choice and chose [facility].CM contacted agency with [facility] for 08/10 and needed admission 08/11.CM updated discharge summary.Nursing informed No other needs were identified at this time. Please page the case briefer regarding utilization review issues or if discharge planning problems or barriers arise. Kath Sutherland RN BSN CCM [id number] * Maxx Amador MD - 08/09/2009 0700 EST Blue Surgery DAILY PROGRESS NOTE Hospital LOS: 2 days 24 hour events: none S: Pain is controlled Patient has had Flatus. Patient has had no Nausea. O: Vitals: Blood pressure 139/72, pulse 97, temperature 36.6 ??C (97.9 ??F), temperature source Tympanic, resp. rate 18, height 1.715 m (5' 7.5), weight 135.626 kg (299 lb), SpO2 97%. I+O last shift: I+O last 3 shifts: In: 1977.17 (420 P.O. 1555.92 I.V.) Out: 1397 (1317 Urine 80 Drains) Current Diet: Clear Liquid Current Scheduled Meds: insulin aspart Q6H albuterol 2 Puff QID fluticasone-salmeterol 1 Puff Q12H fluticasone 1 Brighton BID levothyroxine (SYNTHROID) IV syringe 12.5 mcg DAILY Labs: Lab Results Component Value Date/Time ??? WBC 11.28 08/08/09 4:13 AM ??? HGB 12.3 08/08/09 4:13 AM ??? HCT 36.0 08/08/09 4:13 AM ??? PLT 261 08/08/09 4:13 AM ??? CREATININE 0.64 07/25/09 12:12 PM ??? GLUCOSEFINGE 259 08/09/09 5:48 AM Physical Exam: General appearance: alert, cooperative, no distress Lungs: clear to auscultation bilaterally Heart: regular rate and rhythm, S1, S2 normal, no murmur, click, rub or gallop Abdomen: soft, appropriately tender, +BS Incision: c/d/i, dressing changed and LLQ incision repacked, dark bloody fluid draining Extremities: wwp, no edema Drains: some SSD A: POD#2 s/p lap gastric bypass. Continues to do well. Patient Active Problem List Diagnoses Code ??? Morbid Obesity 278.01 ??? Diabetes 250.00Q ??? Sleep Apnea 780.57C ??? Status Post Gastric Bypass for Obesity V45.86J ??? Hypothyroid 244.9AR ??? Asthma 493.90AE P: Continue gastric diet Continue insulin for blood glucose control per endocrine recs. Continue pain control transition to PO. Encourage ambulation/IS. Continue levothyroxine for hypothyroid. Continue nebs for asthma. movers to all preop meds including procardia xl BRISSA RHODES MD * Miles Winkler CRNA - 08/08/2009 1128 EST Anesthesia Post-op Note Patient location: [place] [address] Procedure detail: Anesthesia Type: General Level of Consciousness: Awake BP 144/58 Pulse 92 Temp(Src) 36.6 ??C (97.9 ??F) (Tympanic) Resp 22 Ht 1.715 m (5' 7.5) Wt 135.626 kg (299 lb) SpO2 97% Vital Signs: Stable Post Op Pain: Taking PO/IV pain meds with good effect Ambulatory Status: Out of bed in chair Additional follow up needed: No Perioperative events: General Events: None MILES WINKLER CRNA 08/08/2009 11:28 AM * Tea Agarwal RN - 08/08/2009 0739 EST 0730: Patient awake in bed, rang call curiel for pain medication. 1 mg IV morphine given for 2/10 pain in incisional area. 0915: 1 mg IV morphine given for 1/10 pain in incisional area. 1115: 1 mg IV morphine given for 2/10 pain in incisional area. No other complaints. 1530: Attempted to call report to Spence 6; receiving RN getting report, will call back in 15 minutes. 1 mg IV morphine given for pain in incisional area. 1545: Insulin drip D/Cd. 1600: Report called to Jordy 6. * Neyda Kitchen RN - 08/08/2009 0607 EST 0600 pt resting well with minimal discomfort to abdominal incision site. IAN drain to LLQ intact with minimal serosanguinous drainage ~ 20 ml output. Denies n/v. Bowel sounds remain distant hypoactiveto absent. No flatus or eructation reported. Abdomen soft, tender to incision site, non-distended. Insulin gtyt at 9 units/hr. Remains NPO at this time. Team rounding this am. Possible advance to floor this am with orders to follow per team. Will continue to provide morphine 2 mg IV q. 2 hrs prn for incisional pain. * Maxx Amador MD - 08/08/2009 0600 EST Blue Surgery DAILY PROGRESS NOTE Hospital LOS: 1 day 24 hour events: none S: Pain is controlled Patient has had Flatus. Patient has had no Nausea. O: Vitals: Blood pressure 134/59, pulse 92, temperature 36.5 ??C (97.7 ??F), resp. rate 20, height 1.715 m (5' 7.5), weight 135.626 kg (299 lb), SpO2 96%. I+O last shift:In: 170.47 (170.47 I.V.) Out: 605 (585 Urine 20 Drains) I+O last 3 shifts: In: 2596.08 (2596.08 I.V.) Out: 2109 (2049 Urine 60 Drains) Current Diet: NPO Current Scheduled Meds: fluticasone 1 Brighton BID fluticasone-salmeterol 1 Puff Q12H levothyroxine (SYNTHROID) IV syringe 12.5 mcg DAILY pantoprazole 40 mg DAILY pantoprazole 40 mg DAILY enoxaparin 40 mg DAILY albuterol 2.5 mg QID Labs: Lab Results Component Value Date/Time ??? WBC 11.28 08/08/09 4:13 AM ??? HGB 12.3 08/08/09 4:13 AM ??? HCT 36.0 08/08/09 4:13 AM ??? PLT 261 08/08/09 4:13 AM ??? CREATININE 0.64 07/25/09 12:12 PM ??? GLUCOSEFINGE 188 08/08/09 2:05 AM Physical Exam: General appearance: alert, cooperative, no distress Lungs: clear to auscultation bilaterally Heart: regular rate and rhythm, S1, S2 normal, no murmur, click, rub or gallop Abdomen: soft, appropriately tender, -BS Incision: c/d/i Extremities: wwp, no edema Drains: minimal SSD A: POD#1 s/p lap gastric bypass. Doing well post-operatively. Patient Active Problem List Diagnoses Code ??? Morbid Obesity 278.01 ??? Diabetes 250.00Q ??? Sleep Apnea 780.57C ??? Status Post Gastric Bypass for Obesity V45.86J ??? Hypothyroid 244.9AR ??? Asthma 493.90AE P: Continue NPO; awaiting return of bowel function Continue insulin for blood glucose control. Continue pain control. Encourage ambulation/IS. Continue levothyroxine for hypothyroid. Continue nebs for asthma. Transfer to floor. BRISSA RHODES MD Attestation statement: I discussed the patient with the resident/fellow at the time of the visit. Iagree with the findings and the plan of care documented in the resident's/fellow's note. * Laith Atwood - 08/07/2009 1634 EST pgy 3 post op check; s-1/10 pain, no n/v, no sob, lightheadedness o-36.9 99 127/56 24 Nc 3 liters uop 450 Drain serosang Rrr, ctab, abdomen-soft, dressing cdi, dressing with serosang. A-clinically doing well FS 246--continue to titrate insulin gtt; no acute intervention warranted at this time. * Tea Agarwal RN - 08/07/2009 1224 EST 1215: Patient arrived to SICU from OR s/p laparoscopic gastric bypass. No intraoperative complications, minimal EBL. Patient lethargic but awake, answers questions appropriately, ACKERMAN. Denies pain. 1300: Family visiting, updated. 1400: Contact info obtained from family/patient. 1615: Patient c/o 1/10 abdominal pain near incision. 1 mg IV morphine given. 1800: Patient denies pain, OOB to chair, minimal assist. documented in this encounter H&P Notes * Inpatient, Physician - 08/14/2009 1336 EST documented in this encounter Procedure Notes * Inpatient, Physician - 08/14/2009 1336 ESTAssociated Order(s): ECG REPORT - SCANNED * Inpatient, Physician - 08/14/2009 1336 ESTAssociated Order(s): ORDERS - SCANNED documented in this encounter Consult Notes * Hadley Mejia DO - 08/09/2009 1028 ESTAssociated Order(s): ADMITTING CONDITION Endo Progress Note Admit Date : 08/07/2009 Subjective: Endocrine Consult Service Chief Complaint: Admitted for gastric bypass. Reason for consult: Diabetic management. HPI: 34 yr old woman with multiple medical problems including morbid obesity, Type 2 diabetes on insulin, sleep apnea on CPAP, admitted electively for a gastric bypass. Her diabetes is currently being managed with glargine, metformin and an insulin pump. She was dx with DM in 1999 and was on oral agents for about 5 yrs and then transitioned to insulin and an insulin pump. She has been seen by Jaydon in Endo clinic on 04/19/09. At that time her pump requirements were quite high and she was frequently changing her cartridge so Lazara started her on lantus 85 unit hs to lower her pump requirements. She checks her blood sugars 4x daily and says that her blood sugars fasting are in the low 100s. Pre lunch and predinner are in kurt 170s and her HS blood sugars are slightly higer. Her A1c from 07/25/09 is 8.6 suggestive of even higher blood sugars. She does not have any complications of her DMthat she is aware of. Patient Active Problem List Diagnoses Date Noted Hypothyroid [244.9AR] 08/08/2009 Asthma [493.90AE] 08/08/2009 Morbid Obesity [278.01] 08/07/2009 Diabetes [250.00Q] 08/07/2009 Sleep Apnea [780.57C] 08/07/2009 Status Post Gastric Bypass for Obesity [V45.86J] 08/07/2009 Past Medical History Diagnosis Date ??? Diabetes ??? Hypothyroidism ??? Morbid Obesity ??? Asthma ??? Hiatal Hernia ??? PCOS (Polycystic Ovarian Syndrome) ??? HAMM (Nonalcoholic Steatohepatitis) ??? HTN (Hypertension) ??? Esophagitis ??? Sleep Apnea Past Surgical History: Prescriptions prior to admission Medication Sig Dispense Refill ??? NIFEdipine (PROCARDIA-XL) 30 mg tablet Take 30 mg by mouth daily. pm ??? INSULIN GLARGINE,HUM.REC.ANLOG (LANTUS SUBQ) Inject 14 Units into the skin once. Prior to OR ??? methyldopa (ALDOMET) 500 mg tablet Take 500 mg by mouth 2 times daily. ??? fluticasone (FLONASE) 50 mcg/Actuation nasal spray 1 [place] by Nasal route 2 times daily. ??? INSULIN ASPART (NOVOLOG SUBQ) Inject into the skin. Basal rate is 56 - basal rate plus bolus 110-140. ??? losartan (COZAAR) 100 mg tablet Take 100 mg by mouth daily. ??? simvastatin (ZOCOR) 20 mg tablet Take 20 mg by mouth at bedtime. ??? citalopram (CELEXA) 20 mg tablet Take 20 mg by mouth daily. ??? metformin (GLUCOPHAGE) 850 mg tablet Take 850 mg by mouth 3 times daily. ??? fluticasone-salmeterol (ADVAIR) 500-50 mcg/Dose diskus inhaler Inhale 1 Puff as directed every 12 hours. ??? NORETHINDRONE, [id number], (JOLIVETTE ORAL) Take 1 Tab by mouth daily. ??? levothyroxine (SYNTHROID) 25 mcg tablet Take 25 mcg by mouth daily. ??? INSULIN GLARGINE,HUM.REC.ANLOG (LANTUS SUBQ) Inject 85 Units into the skin at bedtime. ??? PRAMLINTIDE ACETATE (SYMLINPEN 120 SUBQ) Inject 120 Units into the skin 3 times daily. ??? ALBUTEROL SULFATE (PROVENTIL INHL) Inhale 2 Puffs as directed as needed. Lantus 85 units at dinner. Insulin pump (Novolog): Midnight 1.6 units per hour, 4 a.m. 1.7 units, 7 a.m. 1.3 units per hour and 4:30 in the afternoon until midnight 1.4 units per hour. Lisa-operatively: held metformin for 2 days preop, held Symlin (last dose last night), took Lantus 60 units on the night prior to surgery and decreased pump to 70% of her basal rates. She took 14 units of Lantus this morning. No Known Allergies History Substance Use Topics ??? Tobacco Use: Quit 4 years ago ??? 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 Family Hx: Both parents have DM, Her maternal grandparents were also both DM. Review of Systems She is Objective: VS: Patient Vitals in the past 8 hrs: BP Temp Temp src Pulse Resp SpO2 Height Wt - Scale 08/09/09 0756 157/75 mmHg 37.2 ??C (99 ??F) Tympanic 108 20 93 % - - 08/09/09 0347 139/72 mmHg 36.6 ??C (97.9 ??F) Tympanic 97 18 97 % - - General: AAOx3 but sleepy Heart RRR normal s1s2 no m/r/g Lungs CTA B/L Abd S/NT/ND -bowel sounds ext no c/c/e Data Review: CBC: Lab Results Component Value Date/Time ??? WBC 11.28 08/08/09 4:13 AM ??? RBC 4.68 08/08/09 4:13 AM ??? HGB 12.3 08/08/09 4:13 AM ??? HCT 36.0 08/08/09 4:13 AM ??? MCV 77 08/08/09 4:13 AM ??? MCH 26.4 08/08/09 4:13 AM ??? MCHC 34.3 08/08/09 4:13 AM ??? PLT 261 08/08/09 4:13 AM , BMP: Lab Results Component Value Date/Time ??? GLUCOSEFINGE 259 08/09/09 5:48 AM ??? CREATININE 0.64 07/25/09 12:12 PM nor Coagulation: No results found for this basename: PROTIME,LABINR,PTT A1c 8.6 on 07/25/09 Recent Labs Basename 08/09/09 0548 08/09/09 08/08/09 1803 08/08/09 1208 08/08/09 1008 08/08/09 0804 08/08/09 0651 08/08/09 0419 08/08/09 0205 08/08/09 0002 08/07/09 2222 08/07/090 ??? GLUCOSEFINGE 259* 234* 203* 131* 126* 119* 121* 148* 188* 196* 221* 217* Assessment: This is a 34 yr female with morbid obesity now post op day 2 s/p gastric bypass. Her blood sugar control at home has been suboptimal based on her A1C of 8.6. Plan: DM2: Will use glargine 100 units today. Insulin requirements may decrease substantially and very rapidly post bypass so this may be a conservative dose but will avoid hypoglycemia. Will redose tomorrow based on her blood sugars today and tonight. Depending on her residual insulin requirements we can decide if she should go back on her pump or if it would be easier to use shots. Continue insulin sliding scale. We will add mealtime when she begins taking more po. SARA FELIZ MD 08/09/2009 10:28 AM Attestation statement: I discussed the patient with the resident/fellow at the time of the visit. [place] with the findings and the plan of care documented in the resident's/fellow's note. * Vazquez Sepulveda MD - 08/08/2009 1033 EST Endocrine Progress Note: Subjective: 34 yr female with morbid obesity now pod #1 s/p gastric bypass. Type 2 DM has been managed with an insulin drip overnight with initial blood sugars somewhat elevated but better this am. She states she feels quite well. No c/o pain. She is sitting up in a chair. Objective: BP 134/55 Pulse 92 Temp(Src) 36.6 ??C (97.9 ??F) (Tympanic) Resp 19 Ht 1.715 m (5' 7.5) Wt 135.626 kg (299 lb) SpO2 97% Gen AAOx3 Heart RRR nml s1s2 no m/r/g Lungs CTA B/L Abd S/NT/ND +BS Ext no c/c/e Lab Results Component Value Date/Time ??? HGBA1C 8.6 07/25/09 12:12 PM Lab Results Component Value Date/Time ??? WBC 11.28 08/08/09 4:13 AM ??? HGB 12.3 08/08/09 4:13 AM ??? HCT 36.0 08/08/09 4:13 AM ??? MCV 77 08/08/09 4:13 AM ??? PLT 261 08/08/09 4:13 AM Recent Labs Basename 08/08/09 1008 08/08/09 0804 08/08/09 0651 08/08/09 0419 08/08/09 0205 08/08/09 0002 08/07/09 2222 08/07/09 2050 08/07/09 1814 08/07/09 1611 08/07/09 1415 08/07/09 1258 ??? GLUCOSEFINGE 126* 119* 121* 148* 188* 196* 221* 217* 225* 246* 266* 286* Medications 08/08 08/09 08/10 08/11 08/12 08/13 08/14 08/15 08/16 08/17 albuterol (PROVENTIL) 2.5 mg /3 mL (0.083 %) nebulizer solution 2.5 mg Dose: 2.5 mg Freq: 4 TIMES DAILY Route: NEBULIZATION Start: 08/07/092257 08 08 08 0800 1200 1200 1200 1200 1200 1200 1200 1200 1200 1200 1700 1700 1700 1700 1700 1700 1700 1700 1700 1700 2099 2099 2099 2099 2099 2099 2099 2099 2099 2099 enoxaparin (LOVENOX) injection 40 mg Dose: 40 mg Freq: DAILY Route: SubQ Start: 08/08/09899 09 09 09 09 09 09 09 09 fluticasone (FLONASE) nasal spray 1 Brighton Dose: 1 Brighton Freq: 2 TIMES DAILY Route: Nasl Start: 08/07/091244 Admin Instructions:Dose is for each nostril. [phone] [id number] 09 09 09 092099 fluticasone-salmeterol (ADVAIR) 500-50 mcg/Dose diskus inhaler 1 Puff Dose: 1 Puff Freq: EVERY 12 HOURS Route: Inhl Start: 08/07/09 1245 Admin Instructions:Respiratory To Administer. Rinse mouth after each use 5 0045 0045 0045 0045 0045 0045 0045 0045 0045 0900 1245 1245 1245 1245 1245 1245 1245 1245 1245 levothyroxine 12.5 mcg IV syringe Dose: 12.5 mcg Freq: DAILY Route: IV Start: 08/08/09899 Admin Instructions:Infuse over 20 minutes; can be given IVP over 2 minutes by physician only. 09 09 09 09 09 09 0900 0900 pantoprazole (PROTONIX) tablet 40 mg Dose: 40 mg Freq: DAILY Route: Oral Start: 08/07/09 1245 Admin Instructions:Do not break,crush or chew. 0900-See Alt 0900 0900 0900 0900 0900 0900 0900 0900 0900 Or pantoprazole (PROTONIX) injection 40 mg Dose: 40 mg Freq: DAILY Route: IV Start: 08/07/09 1245 Admin Instructions:Dilute with 10 mL of 0.9% NaCl. Adminster over 2 minutes. Alert pharmacy when patient is taking PO. [phone] 899 899 [phone] Assessment: 34 yr female admitted for gastic bypass now pod #1. Being transferred from SICU to [facility]. Plan: DM2: Recommend 100 units of glargine x1 dose now and stop insulin drip 2hrs later. Will redose glargine tomorrow since insulin requirements may decrease post bypass. No mealtime insulin for now sincept will only be taking sips of clears. Please add aspart supp scale q6 hrs. Will follow. Attestation statement: I saw and examined the patient with the resident/fellow. I agree with the findings and plan of care documented in the resident's/fellow's note. * Vazquez Sepulveda MD - 08/07/2009 1127 EST Date of Service: 08/07/2009 Admit Date : 08/07/2009 Subjective: Endocrine Consult Service Chief Complaint: Admitted for gastric bypass. Reason for consult: Diabetic management. HPI: 34 yr old woman with multiple medical problems including morbid obesity, Type 2 diabetes on insulin, sleep apnea on CPAP, admitted electively for a gastric bypass. Her diabetes is currently being managed with glargine, metformin and an insulin pump. She was dx with DM in 1999 and was on oral agents for about 5 yrs and then transitioned to insulin and an insulin pump. She has been seen by Jadyon in Endo clinic on 04/19/09. At that time her pump requirements were quite high and she was frequently changing her cartridge so Lazara started her on lantus 85 unit hs to lower her pump requirements. She checks her blood sugars 4x daily and says that her blood sugars fasting are in the low 100s. Pre lunch and predinner are in kurt 170s and her HS blood sugars are slightly higer. Her A1c from 07/25/09 is 8.6 suggestive of even higher blood sugars. She does not have any complications of her DMthat she is aware of. She is immediately post op but alert and able to answer questions. Patient Active Problem List Diagnoses Date Noted Morbid Obesity [278.01] 08/07/2009 Diabetes [250.00Q] 08/07/2009 Sleep Apnea [780.57C] 08/07/2009 Status Post Gastric Bypass for Obesity [V45.86J] 08/07/2009 Past Medical History Diagnosis Date ??? Diabetes ??? Hypothyroidism ??? Morbid Obesity ??? Asthma ??? Hiatal Hernia ??? PCOS (Polycystic Ovarian Syndrome) ??? HAMM (Nonalcoholic Steatohepatitis) ??? HTN (Hypertension) ??? Esophagitis ??? Sleep Apnea Past Surgical History: Prescriptions prior to admission Medication Sig Dispense Refill ??? NIFEdipine (PROCARDIA-XL) 30 mg tablet Take 30 mg by mouth daily. pm ??? INSULIN GLARGINE,HUM.REC.ANLOG (LANTUS SUBQ) Inject 14 Units into the skin once. Prior to OR ??? methyldopa (ALDOMET) 500 mg tablet Take 500 mg by mouth 2 times daily. ??? fluticasone (FLONASE) 50 mcg/Actuation nasal spray 1 Brighton by Nasal route 2 times daily. ??? INSULIN ASPART (NOVOLOG SUBQ) Inject into the skin. Basal rate is 56 - basal rate plus bolus 110-140. ??? losartan (COZAAR) 100 mg tablet Take 100 mg by mouth daily. ??? simvastatin (ZOCOR) 20 mg tablet Take 20 mg by mouth at bedtime. ??? citalopram (CELEXA) 20 mg tablet Take 20 mg by mouth daily. ??? metformin (GLUCOPHAGE) 850 mg tablet Take 850 mg by mouth 3 times daily. ??? fluticasone-salmeterol (ADVAIR) 500-50 mcg/Dose diskus inhaler Inhale 1 Puff as directed every 12 hours. ??? NORETHINDRONE, VKQ0503, (JOLIVETTE ORAL) Take 1 Tab by mouth daily. ??? levothyroxine (SYNTHROID) 25 mcg tablet Take 25 mcg by mouth daily. ??? INSULIN GLARGINE,HUM.REC.ANLOG (LANTUS SUBQ) Inject 85 Units into the skin at bedtime. ??? PRAMLINTIDE ACETATE (SYMLINPEN 120 SUBQ) Inject 120 Units into the skin 3 times daily. ??? ALBUTEROL SULFATE (PROVENTIL INHL) Inhale 2 Puffs as directed as needed. Lantus 85 units at dinner. Insulin pump (Novolog): Midnight 1.6 units per hour, 4 a.m. 1.7 units, 7 a.m. 1.3 units per hour and 4:30 in the afternoon until midnight 1.4 units per hour. Lisa-operatively: held metformin for 2 days preop, held Symlin (last dose last night), took Lantus 60 units on the night prior to surgery and decreased pump to 70% of her basal rates. She took 14 units of Lantus this morning. No Known Allergies History Substance Use Topics ??? Tobacco Use: Quit 4 years ago ??? 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 Family Hx: Both parents have DM, Her maternal grandparents were also both DM. Review of Systems She is Objective: VS: Patient Vitals in the past 8 hrs: BP Temp Temp src Pulse Resp SpO2 Height Wt - Scale 08/07/09 0720 135/78 mmHg 36.6 ??C (97.9 ??F) Tympanic 99 16 96 % - - General: AAOx3 but sleepy Heart RRR normal s1s2 no m/r/g Lungs CTA B/L Abd S/NT/ND -bowel sounds ext no c/c/e Data Review: CBC: Lab Results Component Value Date/Time ??? WBC 8.49 07/25/09 12:12 PM ??? RBC 4.98 07/25/09 12:12 PM ??? HGB 13.0 07/25/09 12:12 PM ??? HCT 39.1 07/25/09 12:12 PM ??? MCV 78 07/25/09 12:12 PM ??? MCH 26.1 07/25/09 12:12 PM ??? MCHC 33.3 07/25/09 12:12 PM ??? PLT 281 07/25/09 12:12 PM , BMP: Lab Results Component Value Date/Time ??? GLUCOSEFINGE 184 03/19/09 10:03 AM ??? CREATININE 0.64 07/25/09 12:12 PM nor Coagulation: No results found for this basename: PROTIME,LABINR,PTT A1c 8.6 on 07/25/09 Assessment: This is a 34 yr female with morbid obesity now post op day 0 s/p gastric bypass. Her blood sugar control at home has been suboptimal based on her A1C of 8.6. Plan: DM2: Agree with Dr. Stanley plan to use an insulin drip until tomorrow and we can transition her to basal bolus at that time. She can go back on her pump when she is fully alert and feeling up to managing her pump. SARA FELIZ MD 08/07/2009 11:40 AM Endocrine Attendin34 year old underwent gastric bypass. Followed by Lazara Aquino in Endocrine clinic, on insulin pumpand subQ lantus, apparently 120-140 units total per day. A1C 8.6%. Also receiving metformin and symlin preop. Currently on insulin infusion. Plan: 1) Transition to Glargine insulin 08/08/09 AM - will suggest dose then. Expect dose will be approximately 100 units daily. 2) Mealtime coverage with Aspart as food advanced. 3) Restart metformin at discharge. 4) D/C symlin. 5) See no indication for restarting pump at discharge as expect will see rapid lowering of insulin needs that is probably easier to manage with daily subQ Glargine. 6) Also at discharge, lower glargine dose in half. Doubt indication to send home on Aspart at mealsfor now. 7) Follow up with Lazara Aquino in Endocrine clinic. Attestation statement: I saw and examined the patient with the resident/fellow. I agree with the findings and plan of care documented in the resident's/fellow's note. documented in this encounter OR Notes * OR PreOp - Inpatient, Physician - 08/14/2009 1336 EST * Anesthesia Procedure Notes - Inpatient, Physician - 08/07/2009 1225 EST * OR Surgeon - Armando Lew - 08/07/2009 1201 EST BRIEF OP NOTE Surgeon: Dr. Maxx Amador Venture Capitalist: Dr. Zachariah Cheng; Carey Lew MD Procedure: Lap RNY Gastric Bypass Anesth: General Findings: 1. 30cc Gastric Pouch constructed 2. 30cm Biliary Limb 3. 80cm Alfredo Limb 4. Anterocolic construction of RNY Limb 5. Tumi-hh-vvvx stapled J-J anastomosis 6. Circular end-to-end G-J anastomosis 7. Tension free G-J anastomosis - methylene blue leak test : negative for leak 8. 10Fr Jesus Prat drain placed behind the G-J anastomosis 9. Good hemostasis at the end of the case EBL: 50cc IVF: 2500cc LR UOP: 200cc Specimen: Jejunum Cultures: none Foreign Material Retained: IAN drain Complications: None Dispo: Extubated to PACU in stable condition * OR PreOp - Inpatient, Physician - 08/07/2009 1150 EST * Anesthesia Preprocedure Evaluation - Inpatient, Physician - 08/07/2009 0838 EST * Anesthesia Preprocedure Evaluation - Inpatient, Physician - 08/07/2009 0724 EST * OR Surgeon - Maxx Amador MD - 08/07/2009 0000 EST ADDENDUM: Dr Zachariah Delgado was the marketing communications assistant as there was no qualified residents 1st warehouse administrative assistant in the case. The patient's BMI was 47. OPERATIVE REPORT SERVICE DATE: 08/07/2009 SURGEON: Maxx Amador MD PREOPERATIVE DIAGNOSIS: Morbid obesity, type 2 diabetes, hypertension. POSTOPERATIVE DIAGNOSIS: Morbid obesity, type 2 diabetes, hypertension. PROCEDURE: Laparoscopic Alfredo-en-Y gastric bypass with a 75 cm antegastric antecolic Alfredo limb usinga 25 mm circular EEA stapler. NARRATIVE: After risks, benefits, potential complications including but not limited to , perforation, anastomotic leak, PE and DVT, the patient signed informed consent and was taken to the operating room. Bilateral lower extremity Venodynes were placed along with a Gonzales catheter and antibiotics were administered. After undergoing intubation and general anesthesia, the patient's abdomen was prepped and draped in normal sterile surgical fashion. The patient had a foot board in place and wasstrapped to the table. A calibration tube was placed transorally into the stomach by anesthesia. Weentered into the abdomen through a small supraumbilical incision using an 11 mm trocar with 0 degree scope. Scope was then changed to a long 45 degree scope and the patient was placed in steep reverse Trendelenburg position. The remaining trocars were placed under direct laparoscopic visualization.Brenda-shaped liver retractor was positioned to elevate the left lateral lobe of the liver out of the way and to facilitate exposure of the stomach and the GE junction. Next, the gastrophrenic ligament was taken down bluntly identifying the fibers of the left esophageal kia as well as the angle of His. Attention was then drawn to the lesser curvature and the gastrohepatic ligament. The orogastric calibration tube was then insufflated with 20 mL of saline and taken off suction. The balloon waspulled back until it was adjacent to the GE junction. Using a perigastric technique along the lesser curvature, a small window was opened adjacent to the stomach and into the lesser sac at the secondbetween the 2nd and 3rd vascular arcade on the lesser curvature of the stomach. Through this opening, we placed and fired our [place] 60 x 3.5 mm stapler in succession from the lesser curve to the angle of His creating our 20 mL pouch. Next, we inspected the staple line posterior to the pouch and the gastric remnant found to be intact. The patient was then flattened and the scope was changed to a 10 mm 30 degree scope to facilitate formation of our Alfredo limb and jejunojejunostomy. First, we elevated the transverse mesocolon cephalad to expose the small bowel and identify the ligament of Treitz. We measured approximately 50 cm distal to the ligament of Treitz and divided the small bowel with an [place] 60 x 2.5 mm stapler. The small bowel mesentery was then divided using the Harmonic scalpel. We then measured approximately 80 cm distal on the divided small bowel and placed it adjacent to our biliopancreatic limb. Enterotomies were made using the Harmonic scalpel and anastomosis was completed in an antegrade fashion using th e [place] 60 x 2.5 stapler. The enterotomy was then closed using three interrupted 2-0 silk suturesfollowed by firing of our [place] 60 x 2.5 stapler. The staple line was inspected, and three rows of rodrigo were crossed closing the enterotomy site. Next our attention was drawn to bringing up our Alfredo limb in an antecolic antegastric fashion. The omentum was then divided with the Harmonic scalpel. The patient was then repositioned in steep reverse Trendelenburg and the scope was again changed to a 10 mm 45 degree scope to facilitate completion of our gastrojejunostomy. The previously prepared Sourav anvil 25 mm EEA was passed transorally on the orogastric tube. A gastrotomy was made at the horizontal and vertical staple lines of our newly formed pouch. The anvil was poured out through our gastrotomy. The OG tube was then disconnected from the anvil and removed from the operative fieldfor a 15 mm trocar incision. Next, the 15 mm trocar incision was extended and dilated with a 30 mL syringe. The 25 mm neck of the EEA was then placed through the 15 mm trocar site and after an enterotomy was made in the proximal Alfredo limb, the EEA was threaded into the proximal Alfredo limb. The stapler was then opened and joined with the anvil and fired. The stapler was then removed from the operative field, opened on the back table and two complete rings were identified. The enterotomy in the proximal Alfredo limb was then closed with an [place] 60 x 2.5 stapler. A 2-0 Ethibond tacking/antitension suture was placed approximately 1 cm distal to our GJ anastomosis. The orogastric tube was then repositioned just above anastomosis and 60 mL of methylene blue was injected once the proximal Alfredo limb was occluded. There was no evidence of methylene blue leak. A 10 flat Jesus-Cleveland drain was then placed behind the anastomosis and exited out the left lower quadrant. We then closed the Lopez's defect with a nonabsorbable suture. We then closed the 15 mm trocar site with a 0 PDS suture followed by Monocryls for the skin as well as rodrigo for the 15 mm trocar site. The trocar site was packe d partially open with iodoform gauze. The remainder of the incisions had Telfa, Tegaderm, Mastisol and Steri-Strips. Approximately 30 mL of equal parts 1% lidocaine and 0.5 Marcaine were injected into the wounds. The patient tolerated the procedure well. All needles, instruments and lap pads were accounted for. I was present for the entire case. The patient was extubated in the operating room andtransferred to the PACU in good condition. Unless otherwise noted, there were no complications, no blood loss, no cultures obtained, no specimens removed, and no drains retained. Maxx Amador MD Dictated by: Maxx Amador MD 01 22 PM / ba Confirmation: [id number] Dictation ID: [id number] documented in this encounter Miscellaneous Notes * Scanned Note-Null - Inpatient, Physician - 08/14/2009 1336 EST * Scanned Note-Null - Inpatient, Physician - 08/14/2009 1336 EST * Miscellaneous - Inpatient, Physician - 08/14/2009 1336 EST * Plan of Care - Yee Meng - 08/08/2009 2144 EST Problem: PAIN Goal: Patient's Pain And Discomfort Are Adequately Managed Outcome: Met This Shift Active Multi-Disciplinary problems: PAIN [59676] (08/08/09) ELIMINATION [06324] (08/08/09) Data: POD #1 lap gastric bypass, patient rates pain in abdomen 2-3/10. Action: medicated with IV morphine 1-2mg Q2h prn. Response: Patient has positive pain relief, tolerating ambulation very well. YEE MENG RN 08/08/2009 9:39 PM * Plan of Care - Tea Agarwal RN - 08/08/2009 0730 EST 0730: Report received, care assumed. Plan: Monitor neuro, CV, resp status; suction PRN, encourage TCDB, IS use; monitor I&O, lab values; maintain patient safety, skin integrity, and pain control.Titrate insulin drip as appropriate. Notify HO of change. * Plan of Care - Neyda Kitchen RN - 08/08/2009 0012 EST 0000 assumed care of pt. Pt presently OOB to chair. Denies discomfort. VSS, afebrile. Abdominal incision intact. Assessment w/o changes. Presently NPO until bowel sounds more active. Denies n/v. Insulin increased to 8 units/hr for FSBS elevation. Plan: continue cardiac monitoring postop. Maintain T/C/DB with I/S use as coral. Advance diet/activity as tolerated. Maintain abdominal splinting and provide analgesics prn. Notify team with changes in condition PRN. documented in this encounter Plan of Treatment Upcoming Encounters Date Type Department Care Team (Late st Contact Info) Description 05/17/2024 13:00 EDT Office Visit [facility] Endocrinology - [address] [phone] Twyla Mcclellan NP [address] [place] [phone] 08/30/2024 14:00 EST Office Visit [facility] Endocrinology [address] [address] Twyla Mcclellan NP [address] [place] [phone] Scheduled Referrals Name Type Priority Associated Diagnoses Orde r Schedule AMB CONSULT HOME HEALTH SERVICES Outpatient Referral Routine Morbid Obesity ([facility]) Ordered: 08/09/2009 documented as of this encounter Procedures Procedure Name Priority Date/Time Associated Diagnosis Comments ECG REPORT - SCANNED 08/14/2009 13:36 EST ORDERS - SCANNED 08/14/2009 13:3 6 EST GLUCOSE, GLUCOMETER Routine 08/10/2009 5 :47 EST GLUCOSE, GLUCOMETER Routine 08/09/2009 2 3:23 EST GLUCOSE, GLUCOMETER Routine 08/09/2009 2 1:15 EST GLUCOSE, GLUCOMETER Routine 08/09/2009 1 8:05 EST GLUCOSE, GLUCOMETER Routine 08/09/2009 1 1:58 EST GLUCOSE, GLUCOMETER Routine 08/09/2009 5 :48 EST GLUCOSE, GLUCOMETER Routine 08/09/2009 0 :00 EST GLUCOSE, GLUCOMETER Routine 08/08/2009 1 8:03 EST INCENTIVE SPIROMETRY RT Routine 08/08/2009 16:53 EST GLUCOSE, GLUCOMETER Routine 08/08/2009 1 2:08 EST DRY POWDERED OR METERED DOSE INHALER Routine 08/08/2009 11:19 EST GLUCOSE, GLUCOMETER Routine 08/08/2009 1 0:08 EST GLUCOSE, GLUCOMETER Routine 08/08/2009 8 :04 EST GLUCOSE, GLUCOMETER Routine 08/08/2009 6 :51 EST GLUCOSE, GLUCOMETER Routine 08/08/2009 4 :19 EST SCREENING GLUCOSE STAT 08/08/2009 4:1 3 EST COMPLETE BLOOD COUNT Routine 08/08/2009 4:13 EST GLUCOSE, GLUCOMETER Routine 08/08/2009 2 :05 EST DRY POWDERED OR METERED DOSE INHALER Routine 08/08/2009 0:06 EST NEBULIZER TX INTERMITTENT Routine 08/08/2009 0:06 EST GLUCOSE, GLUCOMETER Routine 08/08/2009 0 :02 EST GLUCOSE, GLUCOMETER Routine 08/07/2009 2 2:22 EST GLUCOSE, GLUCOMETER Routine 08/07/2009 2 0:50 EST GLUCOSE, GLUCOMETER Routine 08/07/2009 1 8:14 EST GLUCOSE, GLUCOMETER Routine 08/07/2009 1 6:11 EST MRSA PCR Routine 08/07/2009 14:17 EST GLUCOSE, GLUCOMETER Routine 08/07/2009 1 4:15 EST DRY POWDERED OR METERED DOSE INHALER Routine 08/07/2009 13:44 EST NEBULIZER TX INTERMITTENT Routine 08/07/2009 13:44 EST NEBULIZER TX INTERMITTENT Routine 08/07/2009 13:44 EST NEBULIZER TX INTERMITTENT Routine 08/07/2009 13:44 EST GLUCOSE, GLUCOMETER Routine 08/07/2009 1 2:58 EST GLUCOSE, GLUCOMETER Routine 08/07/2009 1 1:27 EST TYPE AND SCREEN Routine 08/07/2009 7:03 EST GLUCOSE, GLUCOMETER Routine 08/07/2009 6 :49 EST documented in this encounter Results * ECG REPORT - SCANNED (08/14/2009 13:36 EST) 08/14/2009 13:3 6 EST Narrative Procedure Note Inpatient, Physician - 08/14/2009 13:36 EST Physician Inpatient MD PROCEDURE/MINOR S URGICAL ORDERABLES * ORDERS - SCANNED (08/14/2009 13:36 EST) 08/14/2009 13:3 6 EST Narrative Procedure Note Inpatient, Physician - 08/14/2009 13:36 EST Physician Inpatient MD ADMISSION ORDERAB LES * (ABNORMAL) GLUCOSE, GLUCOMETER (08/10/2009 5:47 EST) Glucose, Fingerstick 163(H) 70 - 100 mg/dl [facility] Returned Goods Repairer ID [id number] Test Performed by Nursing Services [facility] 08/10/2009 5:47 EST 08/10/2009 5:48 EST Maxx Amador MD CHEMISTRY & BLOOD GAS ORDERABLES Performing Organization Address [facility] Co de Phone Number [facility] [address] [place] [address] * (ABNORMAL) GLUCOSE, GLUCOMETER (08/09/2009 23:23 EST) Glucose, Fingerstick 172(H) 70 - 100 mg/dl [facility] Returned Goods Repairer ID [id number] Test Performed by Nursing Services [facility] 08/09/2009 23:2 3 EST 08/09/2009 23:24 EST Maxx Amador MD CHEMISTRY & BLOOD GAS ORDERABLES Performing Organization Address [facility] Co de Phone Number [facility] [address] [place] [address] * (ABNORMAL) GLUCOSE, GLUCOMETER (08/09/2009 21:15 EST) Glucose, Fingerstick 166(H) 70 - 100 mg/dl [facility] Returned Goods Repairer ID [id number] Test Performed by Nursing Services [facility] 08/09/2009 21:1 5 EST 08/09/2009 21:16 EST Maxx Amador MD CHEMISTRY & BLOOD GAS ORDERABLES Performing Organization Address [facility] Co de Phone Number [facility] [address] [place] [address] * (ABNORMAL) GLUCOSE, GLUCOMETER (08/09/2009 18:05 EST) Glucose, Fingerstick 237(H) 70 - 100 mg/dl [facility] Returned Goods Repairer ID [id number] Test Performed by Nursing Services [facility] 08/09/2009 18:0 5 EST 08/09/2009 18:07 EST Maxx Amador MD CHEMISTRY & BLOOD GAS ORDERABLES Performing Organization Address [facility] de Phone Number [facility] [address] [place] [address] * (ABNORMAL) GLUCOSE, GLUCOMETER (08/09/2009 11:58 EST) Glucose, Fingerstick 242(H) 70 - 100 mg/dl [facility] Returned Goods Repairer ID [id number] Test Performed by Nursing Services [facility] 08/09/2009 11:5 8 EST 08/09/2009 12:21 EST Maxx Amador MD CHEMISTRY & BLOOD GAS ORDERABLES Performing Organization Address [facility] de Phone Number [facility] [address] [place] [address] * (ABNORMAL) GLUCOSE, GLUCOMETER (08/09/2009 5:48 EST) Glucose, Fingerstick 259(H) 70 - 100 mg/dl [facility] Returned Goods Repairer ID [id number] Test Performed by Nursing Services [facility] 08/09/2009 5:48 EST 08/09/2009 5:49 EST Maxx Amador MD CHEMISTRY & BLOOD GAS ORDERABLES Performing Organization Address [facility] Co de Phone Number [facility] [address] [place] [address] * (ABNORMAL) GLUCOSE, GLUCOMETER (08/09/2009 0:00 EST) Glucose, Fingerstick 234(H) 70 - 100 mg/dl [facility] Returned Goods Repairer ID [id number] Test Performed by Nursing Services [facility] 08/09/2009 08/09/2009 0:0 2 EST Maxx Amador MD CHEMISTRY & BLOOD GAS ORDERABLES Performing Organization Address [facility] Co de Phone Number [facility] [address] [place] [address] * (ABNORMAL) GLUCOSE, GLUCOMETER (08/08/2009 18:03 EST) Glucose, Fingerstick 203(H) 70 - 100 mg/dl [facility] Returned Goods Repairer ID [id number] Test Performed by Nursing Services [facility] 08/08/2009 18:0 3 EST 08/08/2009 18:05 EST Maxx Amador MD CHEMISTRY & BLOOD GAS ORDERABLES Performing Organization Address [facility] de Phone Number [facility] [address] [place] [address] * (ABNORMAL) GLUCOSE, GLUCOMETER (08/08/2009 12:08 EST) Glucose, Fingerstick 131(H) 70 - 100 mg/dl [facility] Returned Goods Repairer ID [id number] Test Performed by Nursing Services [facility] 08/08/2009 12:0 8 EST 08/08/2009 12:09 EST Maxx Amador MD CHEMISTRY & BLOOD GAS ORDERABLES Performing Organization Address [facility] de Phone Number [facility] [address] [place] [address] * (ABNORMAL) GLUCOSE, GLUCOMETER (08/08/2009 10:08 EST) Glucose, Fingerstick 126(H) 70 - 100 mg/dl [facility] Returned Goods Repairer ID [id number] Test Performed by Nursing Services [facility] 08/08/2009 10:0 8 EST 08/08/2009 10:09 EST Maxx Amador MD CHEMISTRY & BLOOD GAS ORDERABLES Performing Organization Address [facility] Phone Number [facility] [address] [place] [address] * (ABNORMAL) GLUCOSE, GLUCOMETER (08/08/2009 8:04 EST) Glucose, Fingerstick 119(H) 70 - 100 mg/dl [facility] Returned Goods Repairer ID [id number] Test Performed by Nursing Services [facility] 08/08/2009 8:04 EST 08/08/2009 10:09 EST Maxx Amador MD CHEMISTRY & BLOOD GAS ORDERABLES Performing Organization Address [facility] Phone Number [facility] [address] [place] [address] * (ABNORMAL) GLUCOSE, GLUCOMETER (08/08/2009 6:51 EST) Glucose, Fingerstick 121(H) 70 - 100 mg/dl [facility] Returned Goods Repairer ID [id number] Test Performed by Nursing Services [facility] 08/08/2009 6:51 EST 08/08/2009 6:52 EST Maxx Amador MD CHEMISTRY & BLOOD GAS ORDERABLES Performing Organization Address [facility] Phone Number [facility] [address] [place] [address] * (ABNORMAL) GLUCOSE, GLUCOMETER (08/08/2009 4:19 EST) Glucose, Fingerstick 148(H) 70 - 100 mg/dl [facility] Returned Goods Repairer ID [id number] Test Performed by Nursing Services [facility] 08/08/2009 4:19 EST 08/08/2009 6:52 EST Maxx Amador MD CHEMISTRY & BLOOD GAS ORDERABLES Performing Organization Address [facility] Phone Number [facility] [address] [place] [address] * (ABNORMAL) HEMAGRAM (08/08/2009 4:13 EST) WBC 11.28 4.0 - 12.4 K/cmm [facility] RBC 4.68 3.86 - 5.04 M/cmm [facility] Hemoglobin 12.3 11.6 - 15.2 gm/dl [facility] HCT 36.0 34.9 - 44.4 % [facility] MCV 77(L) 81 - 98 fl [facility] MCH 26.4(L) 26.7 - 33.3 pg [facility] MCHC 34.3 32.1 - 35.9 gm/dl [facility] PLT 261 141 - 320 K/cmm [facility] RDW-CV 16.2(H) 11.7 - 14.6 % [facility] Blood specimen (specimen) 08/08/2009 4:13 EST 08/08/2009 4:30 EST Armando Lew MD HEMATOLOGY & PF4 ORD ERABLES Performing Organization Address [facility] de Phone Number [facility] [address] [place] [address] * (ABNORMAL) SCREENING GLUCOSE (08/08/2009 4:13 EST) Glucose, Screening 145(H) 70 - 100 mg/dl [facility] Blood specimen (specimen) 08/08/2009 4:13 EST 08/08/2009 4:30 EST Armando Lew MD CHEMISTRY & BLOOD GA S ORDERABLES Performing Organization Address [facility] Co de Phone Number [facility] [address] [place] [address] * (ABNORMAL) GLUCOSE, GLUCOMETER (08/08/2009 2:05 EST) Glucose, Fingerstick 188(H) 70 - 100 mg/dl [facility] Returned Goods Repairer ID [id number] Test Performed by Nursing Services [facility] 08/08/2009 2:05 EST 08/08/2009 2:07 EST Maxx Amador MD CHEMISTRY & BLOOD GAS ORDERABLES Performing Organization Address [facility] Phone Number [facility] [address] [place] [address] * (ABNORMAL) GLUCOSE, GLUCOMETER (08/08/2009 0:02 EST) Glucose, Fingerstick 196(H) 70 - 100 mg/dl [facility] Returned Goods Repairer ID [id number] Test Performed by Nursing Services [facility] 08/08/2009 0:02 EST 08/08/2009 2:07 EST Maxx Amador MD CHEMISTRY & BLOOD GAS ORDERABLES Performing Organization Address [facility] Phone Number [facility] [address] [place] [address] * (ABNORMAL) GLUCOSE, GLUCOMETER (08/07/2009 22:22 EST) Glucose, Fingerstick 221(H) 70 - 100 mg/dl [facility] Returned Goods Repairer ID [id number] Test Performed by Nursing Services [facility] 08/07/2009 22:2 2 EST 08/07/2009 22:26 EST Maxx Amador MD CHEMISTRY & BLOOD GAS ORDERABLES Performing Organization Address [facility] Phone Number [facility] [address] [place] [address] * (ABNORMAL) GLUCOSE, GLUCOMETER (08/07/2009 20:50 EST) Glucose, Fingerstick 217(H) 70 - 100 mg/dl [facility] Returned Goods Repairer ID [id number] Test Performed by Nursing Services [facility] 08/07/2009 20:5 0 EST 08/07/2009 20:51 EST Maxx Amador MD CHEMISTRY & BLOOD GAS ORDERABLES Performing Organization Address [facility] Co de Phone Number [facility] [address] [place] [address] * (ABNORMAL) GLUCOSE, GLUCOMETER (08/07/2009 18:14 EST) Glucose, Fingerstick 225(H) 70 - 100 mg/dl [facility] Returned Goods Repairer ID [id number] Test Performed by Nursing Services [facility] 08/07/2009 18:1 4 EST 08/07/2009 18:15 EST Maxx Amador MD CHEMISTRY & BLOOD GAS ORDERABLES Performing Organization Address [facility] Co de Phone Number [facility] [address] [place] [address] * (ABNORMAL) GLUCOSE, GLUCOMETER (08/07/2009 16:11 EST) Glucose, Fingerstick 246(H) 70 - 100 mg/dl [facility] Returned Goods Repairer ID [id number] Test Performed by Nursing Services [facility] 08/07/2009 16:1 1 EST 08/07/2009 16:12 EST Maxx Amador MD CHEMISTRY & BLOOD GAS ORDERABLES Performing Organization Address [facility] de Phone Number [facility] [address] [place] [address] * MRSA MOLECULAR DETECTION (08/07/2009 14:17 EST) Specimen Description Anibalkhushboo [facility] Result NEGATIVE for Methicillin Resistant Staphylococcus aureus DNA by PCR. [facility] Report Status Final 08/08/2009 [facility] Specimen of unknown material (specimen) 08/07/2009 14:17 EST 08/07/2009 14:17 EST Armando Lew MD MICROBIOLOGY - GENER AL ORDERABLES Performing Organization Address [facility] Co de Phone Number [facility] [address] [place] [address] * (ABNORMAL) GLUCOSE, GLUCOMETER (08/07/2009 14:15 EST) Glucose, Fingerstick 266(H) 70 - 100 mg/dl [facility] Returned Goods Repairer ID [id number] Test Performed by Nursing Services [facility] 08/07/2009 14:1 5 EST 08/07/2009 22:21 EST Maxx Amador MD CHEMISTRY & BLOOD GAS ORDERABLES Performing Organization Address [facility] Phone Number [facility] [address] [place] [address] * (ABNORMAL) GLUCOSE, GLUCOMETER (08/07/2009 12:58 EST) Glucose, Fingerstick 286(H) 70 - 100 mg/dl [facility] Returned Goods Repairer ID [id number] Test Performed by Nursing Services [facility] 08/07/2009 12:5 8 EST 08/07/2009 14:11 EST Maxx Amador MD CHEMISTRY & BLOOD GAS ORDERABLES Performing Organization Address [facility] Phone Number [facility] [address] [place] [address] * (ABNORMAL) GLUCOSE, GLUCOMETER (08/07/2009 11:27 EST) Glucose, Fingerstick 245(H) 70 - 100 mg/dl [facility] Returned Goods Repairer ID [id number] Test Performed by Nursing Services [facility] 08/07/2009 11:2 7 EST 08/08/2009 6:56 EST Maxx Amador MD CHEMISTRY & BLOOD GAS ORDERABLES Performing Organization Address [facility] de Phone Number [facility] [address] [place] [address] * TYPE AND SCREEN (08/07/2009 7:03 EST) Antibody Screen Negative [facility] Comment:SPECIMEN EXPIRES AT 23:59 ON 08/10/2009 ABO O [facility] Rh Factor Positive [facility] 08/07/2009 7:03 EST 08/07/2009 7:03 EST Maxx Amador MD BLOOD BANK T ESTS Performing Organization Address City/[facility]/ZIP Co de Phone Number [facility] [address] [place] [address] * (ABNORMAL) GLUCOSE, GLUCOMETER (08/07/2009 6:49 EST) Glucose, Fingerstick 160(H) 70 - 100 mg/dl [facility] Returned Goods Repairer ID [id number] Test Performed by Nursing Services [facility] 08/07/2009 6:49 EST 08/08/2009 5:56 EST Maxx Amador MD CHEMISTRY & BLOOD GAS ORDERABLES Performing Organization Address [facility] Co de Phone Number [facility] [address] [place] [address] documented in this encounter Visit Diagnoses Diagnosis Status post gastric bypass for obesity- Primary Bariatric surgery status Morbid obesity ([facility]) Morbid obesity Diabetes ([facility]) Type II or unspecified type diabetes mellitus without mention of complication, not stated as uncontrolled Sleep apnea Unspecified sleep apnea Hypothyroid Unspecified hypothyroidism Asthma Unspecified asthma documented in this encounter Administered Medications Inactive Administered Medications - up to 3 most recent administrations Medication Order MAR Action Action Date Dose Rate Site albuterol (PROVENTIL HFA, VENTOLIN HFA) inhaler 2 Puff 2 Puff, inhalation, 4 TIMES DAILY, First dose on Giulia 08/08/09 at 1200, Until Discontinued, Routine Given 08/10/2009 12:19 EST 2 Puffs Given 08/10/2009 8:00 EST 2 Puffs Given 08/09/2009 21:07 EST 2 Puffs albuterol (PROVENTIL) 2.5 mg /3 mL (0.083 %) nebulizer solution 2.5 mg 2.5 mg, nebulization, EVERY 6 HOURS (4 times per day), First dose on Wed08/07/09 at 1245, Until Discontinued, Routine Given 08/07/2009 18:00 EST 2.5 mg albuterol (PROVENTIL) 2.5 mg /3 mL (0.083 %) nebulizer solution 2.5 mg 2.5 mg, nebulization, 4 TIMES DAILY, First dose (after last modification) on Wed08/07/09 at 2315, Until Discontinued, Routine Given 08/08/2009 9:00 EST 2.5 mg Given 08/07/2009 23:15 EST 2.5 mg CEFAZolin (ANCEF) syringe 2 g 2 g, intravenous, Administer over 10 Minutes, PRE-OP ONCE, 1 dose, On Wed08/07/09 at 0600, Routine, Pre Op Day of Surgery Given by Other 08/07/2009 8:12 EST 2 g Left Arm citalopram (CELEXA) tablet 20 mg 20 mg, oral, DAILY, First dose on Wed08/09/09 at 1015, Until Discontinued, Routine Given 08/10/2009 8:27 EST 20 mg Given 08/09/2009 11:35 EST 20 mg enoxaparin (LOVENOX) injection 40 mg 40 mg, subcutaneous, DAILY, First dose on Giulia 08/08/09 at 0900, Until Discontinued, Routine Given 08/08/2009 9:00 EST 4 0 mg fluticasone (FLONASE) nasal spray 1 Brighton 1 Brighton, nasal, 2 TIMES DAILY, First dose on Wed08/07/09 at 1245, Until Discontinued, Routine Given 08/10/2009 8:27 EST 1 Brighton Given 08/09/2009 21:07 EST 1 Brighton Given 08/09/2009 8:10 EST 1 Brighton fluticasone-salmeterol (ADVAIR) 500-50 mcg/Dose diskus inhaler 1 Puff 1 Puff, inhalation, EVERY 12 HOURS, First dose on Wed08/07/09 at 1245, Until Discontinued, Routine Given 08/07/2009 21:19 EST 1 Puff fluticasone-salmeterol (ADVAIR) 500-50 mcg/Dose diskus inhaler 1 Puff 1 Puff, inhalation, EVERY 12 HOURS, First dose (after last modification) on Wed08/09/09 at 0045, Until Discontinued, Routine Given 08/09/2009 8:00 EST 1 Puff Given 08/09/2009 0:01 EST 1 Puff fluticasone-salmeterol (ADVAIR) 500-50 mcg/Dose diskus inhaler 1 Puff 1 Puff, inhalation, EVERY 12 HOURS (2 times per day), First dose (after last modification) on [facility] 08/10/09 at 0845, Until Discontinued, Routine Given 08/10/2009 8:45 EST 1 Puff insulin aspart (NOVOLOG FlexPen) injection 7 Units 7 Units, subcutaneous, Once (Without Time Specified), 1 dose, Starting on Wed08/09/09 at 1845, Until Wed08/09/09 at 1845, Routine Given 08/09/2009 18:45 ES T 7 Units insulin aspart (NOVOLOG FlexPen) injection subcutaneous, EVERY 6 HOURS (4 times per day), First dose on Wed08/08/09 at 1200, Until Discontinued, Routine Given 08/10/2009 5:49 EST 4 Units Given 08/09/2009 23:25 EST 4 Units Given 08/09/2009 18:09 EST 7 Units insulin glargine (LANTUS SoloSTAR PEN) injection 100 Units 100 Units, subcutaneous, NOW X1, 1 dose, On Wed08/08/09 at 1145, Routine Given 08/08/2009 13:45 EST 100 Units insulin glargine (LANTUS SoloSTAR PEN) injection 40 Units 40 Units, subcutaneous, Once (Without Time Specified), 1 dose, Starting on 08/10/09 at 1000, Until 08/10/09 at 1000, Routine Given 08/10/2009 10:00 EST 40 Units insulin glargine (LANTUS) injection 100 Units 100 Units, subcutaneous, NOW X1, 1 dose, On Wed08/09/09 at 1100, Routine Given 08/09/2009 11:00 EST 100 Units insulin regular (HUMULIN R,NOVOLIN R) 100 Units in sodium chloride 0.9 % 100 mL infusion 1 Units/hr (rounded to 1 mL/hr), intravenous, CONTINUOUS, Starting on Wed08/07/09 at 1245, Until Wed08/08/09 at 1541, STAT Rate Documented 08/08/2009 15:00 EST 9 Units/hr 9 mL/hr Rate Documented 08/08/2009 14:00 EST 9 Units/hr 9 mL/hr Rate Documented 08/08/2009 13:00 EST 9 Units/hr 9 mL/hr lactated ringers (LR) infusion at 25 mL/hr, intravenous, CONTINUOUS, Starting on Wed08/07/09 at 0745, Until Wed08/08/09 at 1653, Routine, Pre Op Day of Surgery Given by Other 08/07/2009 7:45 EST 25 mL/hr levothyroxine (SYNTHROID) tablet 25 mcg 25 mcg, oral, DAILY, First dose on Wed08/09/09 at 1015, Until Discontinued, Routine Given 08/10/2009 8:27 EST 25 mcg Given 08/09/2009 11:35 EST 25 mcg levothyroxine 12.5 mcg IV syringe 12.5 mcg, intravenous, DAILY, First dose on Giulia 08/08/09 at 0900, Until Discontinued, Routine Given 08/08/2009 9:00 EST 12.5 mcg losartan (COZAAR) tablet 100 mg 100 mg, oral, DAILY, First dose on Wed08/09/09 at 1015, Until Discontinued, Routine Given 08/10/2009 8:27 EST 1 00 mg Given 08/09/2009 11:35 EST 100 mg methyldopa (ALDOMET) tablet 500 mg 500 mg, oral, EVERY 12 HOURS (2 times per day), First dose on Wed08/09/09 at 1015, Until Discontinued, Routine Given 08/10/2009 8:27 EST 500 mg Given 08/09/2009 21:07 EST 500 mg Given 08/09/2009 11:35 EST 500 mg metronidazole (FLAGYL) IVPB 500 mg 500 mg, intravenous, Administer over 30 Minutes, PRE-OP ONCE, 1 dose, On Wed08/07/09 at 0600, Routine, Pre Op Day of Surgery Given 08/07/2009 7:00 EST 500 mg morphine injection 1-5 mg 1-5 mg, intravenous, EVERY 2 HOURS PRN, Starting on Wed08/07/09 at 1223, Until 08/10/09 at 1603, Pain, Routine Given 08/09/2009 0:13 EST 2 mg Given 08/08/2009 20:00 EST 1 mg Given 08/08/2009 17:49 EST 2 mg NIFEdipine (PROCARDIA-XL) tablet 30 mg 30 mg, oral, DAILY, First dose on Wed08/09/09 at 1015, Until Discontinued, Routine Given 08/10/2009 8:27 EST 30 mg Given 08/09/2009 11:35 EST 30 mg oxycodone (ROXICODONE) immediate release tablet 5-10 mg 5-10 mg, oral, EVERY 3 HOURS PRN, Starting on Wed08/09/09 at 0717, Until 08/10/09 at 1603, Pain, Routine Given 08/09/2009 15:47 EST 10 mg pantoprazole (PROTONIX) injection 40 mg 40 mg, intravenous, DAILY, First dose on Wed08/07/09 at 1245, Until Discontinued, Routine Given 08/08/2009 9:00 EST 4 0 mg Given 08/07/2009 12:45 EST 40 mg simvastatin (ZOCOR) tablet 20 mg 20 mg, oral, AT BEDTIME, First dose on Wed08/09/09 at 2100, Until Discontinued, Routine Given 08/09/2009 21:07 EST 20 mg sodium chloride 0.9 % (NS) infusion 10 mL/hr, intravenous, CONTINUOUS, Starting on Wed08/07/09 at 1245, Until Giulia 08/08/09 at 1653, Routine Rate Documented 08/08/2009 15:00 EST 10 mL/hr 1 0 mL/hr Rate Documented 08/08/2009 14:00 EST 10 mL/hr 10 mL/hr Rate Documented 08/08/2009 13:00 EST 10 mL/hr 10 mL/hr sodium chloride 0.9 % (NS) infusion 125 mL/hr, intravenous, CONTINUOUS, Starting on Wed08/08/09 at 1715, Until Wed08/09/09 at 0717, Routine New Bag 08/09/2009 1:47 EST 125 mL/h r 125 mL/hr Rate Documented 08/09/2009 0:00 EST 125 mL/hr 125 mL/hr New Bag 08/08/2009 17:34 EST 125 mL/hr 125 mL/hr documented in this encounter Discontinued Medications Medication Sig Discontinue Reason Start Date End Da te metformin (GLUCOPHAGE) 850 mg tablet Take 850 mg by mouth 3 times daily. 08/10/2009 INSULIN GLARGINE,HUM.REC.ANLOG (LANTUS SUBQ) Inject 85 Units into the skin at bedtime. 08/10/2009 PRAMLINTIDE ACETATE (SYMLINPEN 120 SUBQ) Inject 120 Units into the skin 3 times daily. 08/10/2009 INSULIN GLARGINE,HUM.REC.ANLOG (LANTUS SUBQ) Inject 14 Units into the skin once. Prior to OR 08/10/2009 documented as of this encounter Historical Medications * This list may reflect changes made after this encounter. Medication Sig Dispensed Refills Start Date End Date INSULIN GLARGINE,HUM.REC.ANLOG (LANTUS SUBQ) Inject 14 Units into the skin once. Prior to OR 08/10/2009 NIFEdipine (PROCARDIA-XL) 30 mg tablet Take 30 mg by mouth daily. pm 03/27/2010 PRAMLINTIDE ACETATE (SYMLINPEN 120 SUBQ) Inject 120 Units into the skin 3 times daily. 08/10/2009 INSULIN GLARGINE,HUM.REC.ANLOG (LANTUS SUBQ) Inject 85 Units into the skin at bedtime. 08/10/2009 levothyroxine (SYNTHROID) 25 mcg tablet Take 25 mcg by mouth daily. 11/11/2010 NORETHINDRONE, [id number], (JOLIVETTE ORAL) Take 1 Tab by mouth daily. 03/27/2010 fluticasone-salmeterol (ADVAIR) 500-50 mcg/Dose diskus inhaler Inhale 1 Puff as directed as needed. 09/26/2010 ALBUTEROL SULFATE (PROVENTIL INHL) Inhale 2 Puffs as directed as needed. 09/26/2010 metformin (GLUCOPHAGE) 850 mg tablet Take 850 mg by mouth 3 times daily. 08/10/2009 citalopram (CELEXA) 20 mg tablet Take 20 mg by mouth daily. 03/27/2011 simvastatin (ZOCOR) 20 mg tablet Take 20 mg by mouth at bedtime. 09/26/2010 losartan (COZAAR) 100 mg tablet Take 100 mg by mouth daily. 09/26/2010 INSULIN ASPART (NOVOLOG SUBQ) Inject into the skin. Basal rate is 20.2 - basal rate plus bolus 26-45 06/30/2010 fluticasone (FLONASE) 50 mcg/Actuation nasal spray 1 Brighton by Nasal route as needed. 09/26/2010 methyldopa (ALDOMET) 500 mg tablet Take 500 mg by mouth 2 times daily. 03/27/2010 added in this encounter Active and Recently Administered Medications Times are shown in EST. Scheduled Medication Order 08/08/2009 08/09/2009 08/10/2009 albuterol (PROVENTIL HFA, VENTOLIN HFA) inhaler 2 Puff (CANCELED) 2 Puff, inhalation, 4 TIMES DAILY, First dose on Giulia 08/08/09 at 1200, Until Discontinued, Routine 1230 (Given - Provider: Graciela Mo, RT)1725 (Given - Provider: Yee Meng)2124 (Given - Provider: Yee Meng) 0809 (Given - Provider: Misa Zhang)1135 (Given - Provider: Misa Zhang)1700 (Given - Provider: Misa Zhang)2107 (Given - Provider: Evette Bell, HARPREET) 0800 (Given - Provider: Misa Zhang)1219 (Given - Provider: Misa Zhang) albuterol (PROVENTIL) 2.5 mg /3 mL (0.083 %) nebulizer solution 2.5 mg (CANCELED) 2.5 mg, nebulization, 4 TIMES DAILY, First dose (after last modification) on Wed08/07/09 at 2315, Until Discontinued, Routine 0900 (Given - Provider: Graciela Mo, RT) citalopram (CELEXA) tablet 20 mg (CANCELED) 20 mg, oral, DAILY, First dose on Wed08/09/09 at 1015, Until Discontinued, Routine 1135 (Given - Provider: Misa Zhang) 0827 (Given - Provider: Misa Zhang) enoxaparin (LOVENOX) injection 40 mg (CANCELED) 40 mg, subcutaneous, DAILY, First dose on Wed08/08/09 at 0900, Until Discontinued, Routine 0900 (Given - Provider: Tea Agarwal RN) fluticasone (FLONASE) nasal spray 1 Brighton (CANCELED) 1 [place], nasal, 2 TIMES DAILY, First dose on Wed08/07/09 at 1245, Until Discontinued, Routine 0900 (Given - Provider: Tea Agarwal RN)2124 (Given - Provider: Yee Meng) 0810 (Given - Provider: Misa Zhang)210 (Given - Provider: Evette Bell, HARPREET) 0827 (Given - Provider: Misa Zhang) fluticasone-salmeterol (ADVAIR) 500-50 mcg/Dose diskus inhaler 1 Puff (CANCELED) 1 Puff, inhalation, EVERY 12 HOURS, First dose (after last modification) on Wed08/09/09 at 0045, Until Discontinued, Routine 0001 (Given - Provider: Melisa Bautista RN)0800 (Given - Provider: Misa Zhang - Comment: pt took at 0800; as per her home regime) fluticasone-salmeterol (ADVAIR) 500-50 mcg/Dose diskus inhaler 1 Puff (CANCELED) 1 Puff, inhalation, EVERY 12 HOURS (2 times per day), First dose (after last modification) on 08/10/09 at 0845, Until Discontinued, Routine 0845 (Given - Provider: Misa Zhang) insulin aspart (NOVOLOG FlexPen) injection 7 Units (COMPLETED) 7 Units, subcutaneous, Once (Without Time Specified), 1 dose, Starting on Wed08/09/09 at 1845, Until Wed08/09/09 at 1845, Routine 1845 (Given - Provider: Misa Zhang) insulin aspart (NOVOLOG FlexPen) injection (CANCELED) subcutaneous, EVERY 6 HOURS (4 times per day), First dose on Giulia 08/08/09 at 1200, Until Discontinued, Routine 1200 (Not Given - Provider: Tea Agarwal RN - Reason: Order parameters not met)1800 (Given - Provider: Yee Meng) 0006 (Given - Provider: Melisa Bautista RN)0551 (Given - Provider: Melisa Bautista RN)1243 (Given - Provider: Misa Zhang)1809 (Given - Provider: Misa Zhang)2325 (Given - Provider: Melisa Bautista RN) 0549 (Given - Provider: Melisa Bautista RN)1200 (Due) insulin glargine (LANTUS SoloSTAR PEN) injection 100 Units (COMPLETED) 100 Units, subcutaneous, NOW X1, 1 dose, On Giulia 08/08/09 at 1145, Routine 1345 (Given - Provider: Tea Agarwal RN) insulin glargine (LANTUS SoloSTAR PEN) injection 40 Units (COMPLETED) 40 Units, subcutaneous, Once (Without Time Specified), 1 dose, Starting on 08/10/09 at 1000, Until 08/10/09 at 1000, Routine 1000 (Given - Provider: Misa Zhang) insulin glargine (LANTUS) injection 100 Units (COMPLETED) 100 Units, subcutaneous, NOW X1, 1 dose, On Wed08/09/09 at 1100, Routine 1100 (Given - Provider: Misa Zhang) levothyroxine (SYNTHROID) tablet 25 mcg (CANCELED) 25 mcg, oral, DAILY, First dose on Wed08/09/09 at 1015, Until Discontinued, Routine 1135 (Given - Provider: Misa Zhang) 08 (Given - Provider: Misa Zhang) levothyroxine 12.5 mcg IV syringe (CANCELED) 12.5 mcg, intravenous, DAILY, First dose on Wed08/08/09 at 0900, Until Discontinued, Routine 0900 (Given - Provider: Tea Agarwal, HARPREET) 0900 (Not Given - Provider: Misa Zhang - Reason: Other - Comment: changed to PO) losartan (COZAAR) tablet 100 mg (CANCELED) 100 mg, oral, DAILY, First dose on Wed08/09/09 at 1015, Until Discontinued, Routine 1135 (Given - Provider: Misa Zhang) 08 (Given - Provider: Misa Zhang) methyldopa (ALDOMET) tablet 500 mg (CANCELED) 500 mg, oral, EVERY 12 HOURS (2 times per day), First dose on Wed08/09/09 at 1015, Until Discontinued, Routine 1135 (Given - Provider: Misa Zhang)210 (Given - Provider: Evette Bell, HARPREET) 08 (Given - Provider: Misa Zhang) NIFEdipine (PROCARDIA-XL) tablet 30 mg (CANCELED) 30 mg, oral, DAILY, First dose on Wed08/09/09 at 1015, Until Discontinued, Routine 1135 (Given - Provider: Misa Zhang) 08 (Given - Provider: Misa Zhang) pantoprazole (PROTONIX) injection 40 mg (CANCELED)(Linked Group 1) 40 mg, intravenous, DAILY, First dose on Wed08/07/09 at 1245, Until Discontinued, Routine 0900 (Given - Provider: Tea Agarwal, HARPREET) simvastatin (ZOCOR) tablet 20 mg (CANCELED) 20 mg, oral, AT BEDTIME, First dose on Wed08/09/09 at 2100, Until Discontinued, Routine 210 (Given - Provider: Evette Bell, HARPREET) Continuous Medication Order 08/08/2009 08/09/2009 08/10/2009 insulin regular (HUMULIN R,NOVOLIN R) 100 Units in sodium chloride 0.9 % 100 mL infusion (CANCELED) 1 Units/hr (rounded to 1 mL/hr), intravenous, CONTINUOUS, Starting on Wed08/07/09 at 1245, Until Giulia 08/08/09 at 1541, STAT 0000 (Rate Documented - Provider: Neyda Kitchen RN)0100 (Rate Documented - Provider: Neyda Kitchen RN)0200 (Rate Documented - Provider: Neyda Kitchen RN)0300 (Rate Documented - Provider: Neyda Kitchen RN)0400 (Rate Documented - Provider: Neyda Kitchen RN)0500 (Rate Documented - Provider: Neyda Kitchen RN)0600 (Rate Documented - Provider: Neyda Kitchen RN)0700 (New Bag - Provider: Neyda Kitchen RN)0800 (Rate Documented - Provider: Tea Agarwal RN)0900 (Rate Documented - Provider: Tea Agarwal RN)1000 (Rate Documented - Provider: Tea Agarwal RN)1100 (Rate Documented - Provider: Tea Agarwal RN)1200 (Rate Documented - Provider: Tea Agarwal RN)1300 (Rate Documented - Provider: Tea Agarwal RN)1400 (Rate Documented - Provider: Tea Agarwal RN)1500 (Rate Documented - Provider: Tea Agarwal RN)1545 (Completed - Provider: Tea Agarwal RN) sodium chloride 0.9 % (NS) infusion (CANCELED) 10 mL/hr, intravenous, CONTINUOUS, Starting on Wed08/07/09 at 1245, Until Giulia 08/08/09 at 1653, Routine 0000 (Rate Documented - Provider: Neyda Kitchen RN)0100 (Rate Documented - Provider: Neyda Kitchen RN)0200 (Rate Documented - Provider: Neyda Kitchen RN)0300 (Rate Documented - Provider: Neyda Kitchen, RN)0400 (Rate Documented - Provider: Neyda Kitchen RN)0500 (Rate Documented - Provider: Neyda Kitchen RN)0600 (Rate Documented - Provider: Neyda Kitchen RN)0700 (Rate Documented - Provider: Neyda Kitchen RN)0800 (Rate Documented - Provider: Tea Agarwal RN)0900 (Rate Documented - Provider: Tea Agarwal RN)1000 (Rate Documented - Provider: Tea Agarwal RN)1100 (Rate Documented - Provider: Tea Agarwal RN)1200 (Rate Documented - Provider: Tea Agarwal RN)1300 (Rate Documented - Provider: Tea Agarwal RN)1400 (Rate Documented - Provider: Tea Agarwal RN)1500 (Rate Documented - Provider: Tea Agarwal RN)1600 (Completed - Provider: Tea Agarwal RN) sodium chloride 0.9 % (NS) infusion (CANCELED) 125 mL/hr, intravenous, CONTINUOUS, Starting on Giulia 08/08/09 at 1715, Until 08/09/09 at 0717, Routine 1734 (New Bag - Provider: Yee Meng) 0000 (Rate Documented - Provider: Melisa Bautista, HARPREET)0147 (New Bag - Provider: Melisa Bautista, HARPREET) PRN Medication Order 08/08/2009 08/09/2009 08/10/2009 morphine injection 1-5 mg (CANCELED) 1-5 mg, intravenous, EVERY 2 HOURS PRN, Starting on 08/07/09 at 1223, Until 08/10/09 at 1603, Pain, Routine 0103 (Given - Provider: Neyda Kitchen RN)0300 (Given - Provider: Neyda Kitchen RN)0500 (Given - Provider: Neyda Kitchen RN)0730 (Given - Provider: Tea Agarwal RN)0915 (Given - Provider: Tea Agarwal RN)1115 (Given - Provider: Tea Agarwal RN)1530 (Given - Provider: Tea Agarwal RN)1749 (Given - Provider: Yee Meng)2000 (Given - Provider: Yee Meng) 0013 (Given - Provider: Melisa Bautista, HARPREET) oxycodone (ROXICODONE) immediate release tablet 5-10 mg 5-10 mg, oral, EVERY 3 HOURS PRN, Starting on Wed08/09/09 at 0717, Until 08/10/09 at 1603, Pain, Routine 1547 (Given - Provider: Misa Zhang) Linked Groups Order Group 1: pantoprazole (PROTONIX) tablet 40 mg (CANCELED) 40 mg, oral, DAILY, First dose on Wed08/07/09 at 1245, Until Discontinued, Routine Or pantoprazole (PROTONIX) injection 40 mg (CANCELED)Jump to med 40 mg, intravenous, DAILY, First dose on Wed08/07/09 at 1245, Until Discontinued, Routine documented in this encounter Orders Medications Ordered That Aldo ht Not Have Been Administered Count Last Ordered Date First Ordered Date pneumococcal vaccine (PPV23) (PNEUMOVAX) injection 0.5 mL 1 08/09/2009 dextrose 50 % solution 12.5 g 1 08/08/2009 glucagon (human recombinant) injection 1 mg 1 08/08/2009 insulin glargine (LANTUS Gini oSTAR PEN) injection 100 Units 1 08/08/2009 albuterol (ACCUNEB) nebulize r solution 1.25 mg 1 08/07/2009 albuterol (PROVENTIL) 2.5 mg /3 mL (0.083 %) nebulizer solution 2.5 mg 1 08/07/2009 dextrose 5 % (D5W) infusion 1 08/07/2009 dextrose 50 % solution 12.5-25 g 1 08/07/20 09 diltiazem (CARDIZEM) 125mg/125mL infusion 1 08/07/2009 ondansetron (PF) (ZOFRAN) 4 mg/2 mL injection 4-8 mg 1 08/07/2009 pantoprazole (PROTONIX) tablet 40 mg 1 07/21 Lab Orders Without Results Count Last Ordered D ate First Ordered Date POCT GLUCOSE 1 08/07/2009 Diet Count Last Ordered Date First Orde red Date DIET GASTRIC BYPASS CLEAR LIQUID 1 08/09/20 09 Nursing Count Last Ordered Date First Orde red Date GONZALES CATHETER - DISCONTINUE 1 08/08/2009 NURSING COMMUNICATION 2 08/08/2009 INSERT PERIPHERAL IV 1 08/07/2009 MEASURE WEIGHT 1 08/07/2009 Respiratory Care Count Last Ordered Date First Ordered Date INCENTIVE SPIROMETRY RT 1 08/08/2009 METERED DOSE INHALER 3 08/08/2009 009 NEBULIZER TX INTERMITTENT 4 08/08/2009 Admission Count Last Ordered Date First Orde red Date NOTIFY PPS OF DISCHARGE COMPLETE 1 08/10/20 09 NOTIFY PPS OF ROOM CHANGE COMPLETE 1 2008 ADMITTING CONDITION 1 08/08/2009 PPS NOTIFICATION OF PATIENT ARRIVAL ON UNIT 2 08/08/2009 08/07/2009 ADMIT TO INPATIENT 1 08/07/2009 PPS NOTIFICATION OF SENDING PATIENT OFF THE UNIT 1 08/07/2009 Transfer Count Last Ordered Date First Orde red Date TRANSFER PATIENT 1 08/08/2009 Discharge Count Last Ordered Date First Orde red Date DISCHARGE PATIENT 1 08/10/2009 documented in this encounter Care Teams Marine Equipment Sales Engineer Relationship Specialty Start Date End Date Phylicia Brown NP [address] [place] [id number] PCP - General 01/25/09 03/25/10 documented as of this encounter
--- OUTSIDE RECORDS SUMMARY | 2024-04-22 04:30 | XMS_ITS | Encounter Summary ---
Author Organization [facility] Address [address] [place] [address] Care Team Providers Care Line Lead Name Role Phone Unavailable Primary Care Provider Unavailabl e Encounter Details Date Type Department Care Team (Late st Contact Info) Description 05/04/2005 8:43 EDT Hospital Encounter [facility] - Other [address] [place] [id number] Susi Powell MD [address] [facility], [address] [place] [phone] Social History Tobacco Use Types Packs/Day Years [...] Info) Description 05/17/2024 13:00 EDT Office Visit [facility] Endocrinology - [address] [address] Twyla Mcclellan NP [address] [facility] [address] [place] [address] 08/30/2024 14:00 EST Office Visit [facility] Endocrinology - [facility] [address] [place] [address] Twyla Mcclellan NP [address] [facility] [address] [place] [address] documented as of this encounter Procedures Procedure Name Priority Date/Time Associated Diagnosis Comments THYROID CASCADE Routine 05/04/2005 17:15 EDT documented in this encounter Results * THYROID CASCADE (05/04/2005 17:15 EDT) TSH 0.94 0.35 - 5.50 uIU/ml [facility] Comment: TSH cascade is not recommended for patients in which pituitary or hypothalamic disorders are suspected. 05/04/2005 17:1 5 EDT 05/04/2005 17:16 EDT Susi Powell MD CHEMISTRY & BLOOD GA S ORDERABLES [facility] [address] [place] [address] documented in this encounter Visit Diagnoses Not on filedocumented in this encounter
--- OUTSIDE RECORDS SUMMARY | 2024-04-22 04:30 | XMS_ITS | Encounter Summary ---
Author Organization [facility] Address [address] [place] [address] Care Team Providers Care Procurement Professional Logistics Name Role Phone Anna Marie Montero MD Primary Care Provider Phylicia Garcia NP Primary Care Provider Encounter Details Date Type Department Care Team (Late st Contact Info) Description 05/04/2005 Results Only [facility] Obstetrics & Midwifery - [address] [phone] Hemant Powell MD [address] [place] [address], [address] [place] [address] Social History Tobacco Use Types [...] EDT Office Visit [facility] Endocrinology - [address] [address] Twyla Mcclellan NP [address] [place] [phone] 08/30/2024 14:00 EST Office Visit [facility] Endocrinology - [address] [phone] Twyla Mcclellan, SCRATCH BRUSHER [address] [facility] [address] [place] [address] documented as of this encounter Procedures Procedure Name Priority Date/Time Associated Diagnosis Comments CYTOPATHOLOGY Routine 05/04/2005 0:00 EDT documented in this encounter Results * CYTOPATHOLOGY (05/04/2005 0:00 EDT) Pathology Report: CYTOPATHOLOGY REPORT Reports generated via electronic interface contain original data; however they are lacking the format of the original report. Caution should be taken when reading/interpreti ng unformatted reports. Name: ? LINDA STEWART ? Accession #: ? [id number] : ? 1975 (Age: 30) ??F ?Collect Date: ? 05/04/2005 Location: ? [facility] ? Receive Date: ? 05/05/2005 Provider: ?HEMANT POWELL MD Copy to: ? Specimen/Source: ?ThinPrep Pap Test, Cervix/Endocervix, processed on [employer] ThinPrep Imaging System, with manual evaluation Last Menstrual Period: ? 06/26/04 Menstrual/Pregnanc y Status: ? Post ? SPECIMEN ADEQUACY ? Satisfactory for Evaluation - transformation zone component present GENERAL CATEGORIZATION ? Negative for Intraepithelial Lesion or Malignancy ? Document reviewed and electronically signed by: ? Ann Varenr, SCT(ASCP) ? Report Date: ??05/13/2005 14:19 End of Report [facility] 05/04/2005 05/05/2005 Hemant Powell MD PATHOLOGY ORDERABLES Performing Organization Address City/State/[facility] Co de Phone Number [facility] [address] [place] [address] documented in this encounter Visit Diagnoses Not on filedocumented in this encounter Care Teams Procurement Professional Logistics Relationship Specialty Start Date End Date Anna Marie Montero MD PCP - General 03/26/10 09/18/10 Phylicia Brown NP [address] [place] [id number] PCP - General 01/25/09 03/25/10 documented as of this encounter
--- OUTSIDE RECORDS SUMMARY | 2024-04-22 04:30 | XMS_ITS | Encounter Summary ---
Author Organization [facility] Address [address] [place] [address] Care Team Providers Care Communication Specialist Name Role Phone Unavailable Primary Care Provider Unavailabl e Encounter Details Date Type Department Care Team (Late st Contact Info) Description 03/24/2005 2:04 EDT - 03/28/2005 11:59 EDT Hospital Encounter [facility] Mother/Baby Unit [address] [place], [place] [address] Damaris Friedman MD 111 [facility], [facility] [address] [place] [phone] Lee Cowan MD Discharge Disposition: Home or [...] or Self Care documented in this encounter OR Notes * OR Surgeon - Zunilda Montalvo - 03/24/2005 0000 EDT PROCEDURE REPORT PT TYPE: IP PT LOC: [id number] SERVICE DATE: 03/24/2005 SURGEON: Damaris Friedman MD METAL AND PLASTIC HEATER: Zunilda Montalvo MD PREOPERATIVE DIAGNOSIS: 1. Term with premature rupture of membranes 2. Failed induction of labor 3. Type II class B diabetes mellitus. POSTOPERATIVE DIAGNOSIS: 1. Term with premature rupture of membranes 2. Failed induction of labor 3. Type II class B diabetes mellitus. PROCEDURE: Primary low transverse section by Pfannenstiel. ANESTHESIA: Epidural. INDICATIONS: Ms. Stewart is a 30-year-old 1, para 0 who presented to Labor and Delivery at 38+4 weeks gestation. She noted loss of fluid at 1930 on March 23, 2005. She also was noted to have class B, type II diabetes. She was begun on an insulin drip and D5 lactated Ringer, and her fingersticks were checked every hour. heart tones were reassuring. At approximately 0330 on March 24, 2005,the Pitocin was begun given that the patient was not in labor yet. Throughout her labor, her fingersticks were in good control. Throughout the day, her cervix only changed to 3 cm, 80% effaced, and -2. An IUPC was placed to better monitor the contractions. The Pitocin was at 22 mU per minute at maximum. The heart tones exhibited intermittent repetative late decelerations that improved afterPitocin was reduced. However, the patient had long contractions that did not come down to her baseline, and the fetus did not appear to tolerate these contractions. The fetus had moderate variables, late decelerations, and some saltatory patterns upon having these extended, long contractions. Repeated attempts to increase the pitocin and to get the patient in active labor were made but limited bythe response to the resulting prolonged contractions. There was no cervical change of address clerk several hours. The head was not engaged but did develope molding and caput. By 0500, with no cervical change and with thefetus not tolerating adequate contractions well, the decision to proceed with a section for failed induction of labor versus cephalopelvic disproportion was made. The patient was informed of the risks, benefits, and alternatives of the procedure, and wished to proceed with the . FINDINGS: Normal uterus, tubes, and ovaries. Clear fluid. The placenta was expressed intact with a three-vessel cord. A vigorous male was delivered with Apgars of 6 and 9 at one minute and five minutes. Weight was 8 pounds 2 ounces, and there was no nuchal cord. The patient's fingerstick [id number] just prior to the section. NARRATIVE: The patient was taken to the operating room with an IV and Mcneil in place. Her epidural had been dosed prior to coming to the operating room. She was placed in the dorsal supine position with a leftward tilt. The patient was prepped and draped in normal, sterile fashion. An Allis test was used to confirm epidural anesthesia. A Pfannenstiel skin incision was made 2 cmabove the symphysispubis. This was carried through to the underlying fascia with a Bovie. The rectus muscles were scored in the midline, and the fascial incision was extended laterally with the Leach scissors. The rectus muscles were dissected off the fascia both superiorly and inferiorly, while tenting up the fascia with the Yokasta clamps. The rectus muscles were in the midline, and the peritoneum was tented up with pickups, and entered sharply with the Metzenbaum scissors. The peritoneal incision was extended superiorly and inferiorly with good visualization of the bladder. The bladder blade was placed. The vesicouterine pe ritoneum was then entered with the Metzenbaum scissors and the incision was extended laterally. Thebladder flap was created digitally. The bladder blade was replaced. A transverse uterine incision was made in the lower uterine segment. This incision was extended laterally with the Leach scissors. The infant's head was delivered atraumatically followed by a suctioning of the nose and mouth. The rest of the was delivered without difficulty with gentle fundalpressure. The cord was clamped and cut, and the infant was handed off to the waiting pediatricians.The cord gas was sent. The placenta was delivered without difficulty. The uterus was exteriorized and cleared of all clot and debris. T clamps were used to identify the uterine incision. A small 2-cm uterine extension was noted on the left side of the incision inferior to the incision. This was repaired with 0 Vicryl in a running locked fashion. The rest of the uterine incision was repaired with 0 Vicryl in a running locked fashion. A second layer of the same suture was used in an imbricating fashion to obtain excellent hemostasis. The uterus was returned to the abdomen. The gutters were irrigated and suctioned. The uterine incision was inspected again and good hemostasis was noted. There was no bleeding noted underneath the fascial or the bladder flap. The fascia was repaired with 0 PDS in a running fashion in two parts. The subcutaneous layer was irrigated with normal saline. The subcutaneous adipose tissue was reapproximated with 2-0 Vicryl in an interrupted fashion. The skin was closed with rodrigo. The patient was cleansed and the dressing was applied. The baby and the mother tolerated the procedure well. The patient received 2 g of cefazolin at the time of cord clamp. Pitocin was given during delivery of the placenta. The patient was taken to the recovery room in stable condition. Dr. Damaris Friedman was present and scrubbed for the entire procedure. ESTIMATED BLOOD LOSS: 600 cc. FLUIDS: 800 cc lactated Ringer. URINE OUTPUT: 150 cc clear urine at the end of the procedure. SPECIMENS: Cord gas. COMPLICATIONS: None. Signed by Damaris Friedman MD 03/27/2005 07:37 Kimberlee Landa MDElisabeth Wegner, MD Dictated by: Zunilda Montalvo MD Damaris Friedman MD - Zunilda Montalvo MD A - LT Job ID: [id number] Document ID: [id number] cc: MD Zunilda Barrios MD Elisabeth Wegner, MD documented in this encounter Plan of Treatment Upcoming Encounters Date Type Department Care Team (Late st Contact Info) Description 05/17/2024 13:00 EDT Office Visit [facility] Endocrinology [address] [address] Twyla Mcclellan NP [address] [place] [phone] 08/30/2024 14:00 EST Office Visit [address] [phone] Twyla Mcclellan NP [address] [place] [phone] documented as of this encounter Visit Diagnoses Not on filedocumented in this encounter
--- OUTSIDE RECORDS SUMMARY | 2024-04-22 04:30 | XMS_ITS | Encounter Summary ---
Author Organization [facility] Address [address] [place] [address] Care Team Providers Care Physical Optics Teacher Name Role Phone Phylicia Brown NP Primary Care Provider Encounter Details Date Type Department Care Team (Late st Contact Info) Description 11/19/2008 Before PRISM Converted Visit (Maple) [facility] - Maple conversion [address] [place] [address] Brielle Mendez, BANK MESSENGER 61 [facility] [address] [phone] Social History Tobacco Use Types Packs/Day Years Used Date Smoking Tobacco: Never Assessed Sex and Gender Information Value Date Recorded Sex Assigned at Not on file Gender Identity Not on file Sexual Orientation Not on file documented as of this encounter Progress Notes * Brielle Mendez LAVATORY ATTENDANT - 03/13/2009 6859 EDT DIVISION OF BARIATRIC SURGERY PROGRESS/FOLLOWUP NOTE - 11/19/2008 MICHAEL Traylor returned to our office today for continued medically supervised weight loss in preparationfor laparoscopic adjustable gastric band surgery. 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 Her comorbidities include obstructive sleep apnea,fatty liver disease, hypertension, dyslipidemia, and type 2 diabetes. She denies any changes in her medical history or medications since her previous visit.I did talk with her today about her type 2 diabetes. Her hemoglobin A1c continues to be in the 10%vicinity. This is still too high for our surgical requirement of less than 7. She tells me that her blood sugars range between the 200 and 300s throughout most the day. she does use an insulin pump. I did review her pump settings with her at this visit and have encouraged her to increase her basal insulin rates throughout the night. I have also encouraged her to wake up at 3 a.m. for a few morningsin a row to see what her blood sugars are. If they are in the 200s, then she is to increase her 12 a.m. basal rate and I have encouraged her to make these changes in small increments as she has been doing with Liz, her primary care provider. Patient expressed hesitancy in making her own adjustments and has been working with Liz, to wait for Dodierecommendations, but I have encouraged her to make some small changes on her own and to continue to keep in contact with Liz to let her know whatis going on. Other than that, she denies any changes in her medical history or her medications. Kymberly met with our program dietitian for 30 minutes to review preoperative dietary recommendations. We are encouraging her to maintain 1000 to 1200 calories daily, to decrease her carbohydrate choices. She has only lost 2.8 pounds since starting in our program and will need to lose about [id number] pounds before we will consider swelling her surgery. I consulted with the dietitian following her visit and agree with her findings. OBJECTIVE on physical exam today, blood pressure is 126/72, pulse is 88 and regular. Weight is 293.2 pounds with a BMI of 46.5 and a height of 162.5 cm ASSESSMENT Kymberly continues to be an appropriate candidate for laparoscopic adjustable gastric band surgery with a body mass index of 46.5 and multiple life- threatening comorbidities. She will need to improveher glycemic control before we will consider scheduling her surgery. She also has a few more poundsto lose as well. PLAN We will see her in our office in a few weeks for continued medically supervised weight loss in preparation for surgery. Signed by Brielle Mendez NP,MPH 11/28/2008 13:07 Brielle Mendez NP,MPH [phone] - Brielle Mendez NP,MPH - CD Job ID: [id number] Doc ID: [id number] cc: Phylicia Brown NP documented in this encounter Plan of Treatment Upcoming Encounters Date Type Department Care Team (Late st Contact Info) Description 05/17/2024 13:00 EDT Office Visit [facility] Endocrinology - [address] [address] Twyla Mcclellan NP [address] [place] [phone] 08/30/2024 14:00 EST Office Visit [address] [address] Twyla Mcclellan NP [address] [place] [phone] documented as of this encounter Visit Diagnoses Not on filedocumented in this encounter Care Teams Physical Optics Teacher Relationship Specialty Start Date End Date Phylicia Brown NP [address] [place] [phone] PCP - General 01/25/09 03/25/10 documented as of this encounter
--- OUTSIDE RECORDS SUMMARY | 2024-04-22 04:30 | XMS_ITS | Encounter Summary ---
Author Organization [facility] Address [address] [place] [address] Care Team Providers Care Utility Worker [place] Name Role Phone Unavailable Primary Care Provider Unavailabl e Encounter Details Date Type Department Care Team (Late st Contact Info) Description 08/20/2008 10:05 EST Hospital Encounter [facility] - Maple conversion [address] [place] [address] Sally Torres, PhD [address] [place] [phone] Social History Tobacco Use Types Packs/Day [...] [facility] Endocrinology - [address] [phone] Twyla Mcclellan NP [address] [place] [phone] 08/30/2024 14:00 EST Office Visit [facility] Endocrinology - [address] [phone] Twyla Mcclellan NP [address] [place] [phone] documented as of this encounter Visit Diagnoses Not on filedocumented in this encounter
--- OUTSIDE RECORDS SUMMARY | 2024-04-22 04:30 | XMS_ITS | Encounter Summary ---
Author Organization [facility] Address [address] [place] [address] Care Team Providers Care Case Resource Manager Name Role Phone Phylicia Brown LAUNCHMAN Primary Care Provider Encounter Details Date Type Department Care Team (Latest Contact Info) Description 11/08/2009 9:44 EST - 11/08/2009 23:59 [facility] Hospital Encounter [facility] - [facility] [address] [place] [address] Phylicia Brown, SACHIN [address] [place], [place] [phone] Brielle Mendez, MUSTANGER 61 [facility] [address] [address] Discharge Disposition: Home or Self Care Social [...] fluticasone (FLONASE) 50 mcg/Actuation nasal spray 1 [place] by Nasal route as needed. 09/26/2010 fluticasone-salmeterol [...] mg by mouth daily. pm 03/27/2010 NORETHINDRONE, [id number], (JOLIVETTE ORAL) Take 1 Tab by mouth [...] Info) Description 05/17/2024 13:00 EDT Office Visit [facility] Endocrinology - [address] [address] Twyla Mcclellan NP [address] [place] [phone] 08/30/2024 14:00 EST Office Visit [facility] Endocrinology - [address] [phone] Twyla Mcclellan, LAUNCHMAN 62 [facility] [address] [place] [phone] documented as of this encounter Procedures Procedure Name Priority Date/Time Associated Diagnosis Comments URINE [id number] NE RATIO (ACR) Routine 11/08/2009 9:59 EST PTH INTACT Routine 11/08/2009 9:56 EST THIAMIN (VITAMIN B1), WB Routine 11/08/2009 9:55 EST MULTIPLE DOC ORDERS Routine 11/08/2009 9:55 EST VITAMIN D (25,OH) Routine 11/08/2009 9:55 EST COMPLETE BLOOD COUNT Routine 11/08/2009 9:55 EST TSH Routine 11/08/2009 9:55 EST IRON Routine 11/08/2009 9:55 EST FERRITIN Routine 11/08/2009 9:55 EST VITAMIN B12 Routine 11/08/2009 9:55 EST HEPATIC FUNCTION PANEL (ALB,ALK PHOS,ALT,AST,DBIL,T OT TOMMY,TOT PROT) Routine 11/08/2009 9:55 EST BASIC METABOLIC PANEL (BMP) Routine 11/08/2009 9:55 EST documented in this encounter Results * MICROALBUMIN (11/08/2009 9:59 EST) Creatinine, Urn [place] 252.1 mg/dl [facility] Ur Albumin mg/dl 1.8 <1.9 mg/dl [facility] Ur Alb ug/mg Crea 7.1 ug/mg Crea [facility] Comment: Normal: ??<30 ug/mg Creat Microalbuminuria: ??30-300 ug/mg Creat Clinical albuminuria: ??>300 ug/mg Creat 11/08/2009 9:59 EST 11/08/2009 10:01 EST Phylicia RossAll LAUNCHMAN CHEMISTRY & BLO OD GAS ORDERABLES Performing Organization Address [facility] de Phone Number [facility] [address] [place] [address] * PTH INTACT (11/08/2009 9:56 EST) PTH 20 10 - 69 pg/ml [facility] Comment:Reference range base d on normal calcium level. Blood specimen (specimen) 11/08/2009 9:56 EST 11/08/2009 9:58 EST Brielle Mendez APRN CHEMISTRY & BLOOD GAS ORDERABLES Performing Organization Address [facility] Phone Number [facility] [address] [place] [address] * MULTIPLE DOC ORDERS (11/08/2009 9:55 EST) Multiple Doc Orders This report contains lab results ordered by another provider which were collected and processed simultaneously with the orders you requested. If you have any questions, please call Customer Service at [phone]. [facility] 11/08/2009 9:55 EST 11/08/2009 9:57 EST Brielle Mendez APRN CHEMISTRY & BLOOD GAS ORDERABLES Performing Organization Address [facility] de Phone Number [facility] [address] [place] [address] * TSH (11/08/2009 9:55 EST) TSH 1.05 0.35 - 5.00 uIU/ml [facility] Blood specimen (specimen) 11/08/2009 9:55 EST 11/08/2009 9:57 EST Brielle S Andrea MUSTANGER CHEMISTRY & BLOOD GAS ORDERABLES Performing Organization Address [facility] Co de Phone Number [facility] [address] [place] [address] * (ABNORMAL) LIVER FUNCTION TESTS (11/08/2009 9:55 EST) Pathologist [facility] Albumin 4.5 3.4 - 4.9 g/dl [facility] Total Protein 7.6 6.5 - 8.3 g/dl [facility] Alkaline Phosphatase 83 38 - 126 U/L [facility] ALT 33 9 - 52 U/L [facility] AST 28 15 - 46 U/L [facility] Unconjugated Bilirubin 1.7(H) 0.1 - 1.1 mg/dl [facility] Conjugated Bilirubin 0.0 0.0 - 0.3 mg/dl [facility] Bilirubin, Total 1.5(H) 0.2 - 1.3 mg/dl [facility] Blood specimen (specimen) 11/08/2009 9:55 EST 11/08/2009 9:57 EST Brielle Mendez MUSTANGER CHEMISTRY & BLOOD GAS ORDERABLES Performing Organization Address [facility] Co de Phone Number [facility] [address] [place] [address] * (ABNORMAL) IRON (11/08/2009 9:55 EST) Pathologist [facility] Iron 44(L) 60 - 180 ug/dl [facility] Blood specimen (specimen) 11/08/2009 9:55 EST 11/08/2009 9:57 EST Brielle S Andrea MUSTANGER CHEMISTRY & BLOOD GAS ORDERABLES Performing Organization Address City/[facility] Co de Phone Number [facility] [address] [place] [address] * (ABNORMAL) VITAMIN B1, THIAMINE (11/08/2009 9:55 EST) Thiamine 180Reference range: 80 to 150 Unit: nmol/L Performed or Referred by: [facility], [address] ?? [place] [address], Lab Dir: Shayne Shrestha III, MD(H) [facility] Blood specimen (specimen) 11/08/2009 9:55 EST 11/08/2009 9:57 EST Brielle Mendez APRN CHEMISTRY & BLOOD GAS ORDERABLES Performing Organization Address [facility] Co de Phone Number [facility] [address] [place] [address] * VITAMIN D (25,OH) (11/08/2009 9:55 EST) 25OH Vitamin D Tot 58.2 ng/ml [facility] Comment: Reference Range: <10 ng/ml: Deficient 10-30 ng/ml: Insufficient 30-100 ng/ml: Sufficient >100 ng/ml: Toxic Blood specimen (specimen) 11/08/2009 9:55 EST 11/08/2009 9:57 EST Brielle Mendez APRN CHEMISTRY & BLOOD GAS ORDERABLES Performing Organization Address [facility] Co de Phone Number [facility] [address] [place] [address] * VITAMIN B12 (11/08/2009 9:55 EST) Pathologist [facility] Vitamin B-12 927 250 - 1100 pg/ml [facility] Blood specimen (specimen) 11/08/2009 9:55 EST 11/08/2009 9:57 EST Brielle Mendez APRN CHEMISTRY & BLOOD GAS ORDERABLES Performing Organization Address [facility] Co de Phone Number [facility] [address] [place] [address] * (ABNORMAL) HEMAGRAM (11/08/2009 9:55 EST) WBC 7.67 4.0 - 12.4 K/cmm [facility] RBC 4.93 3.86 - 5.04 M/cmm [facility] Hemoglobin 12.7 11.6 - 15.2 gm/dl [facility] HCT 38.0 34.9 - 44.4 % [facility] MCV 77(L) 81 - 98 fl [facility] MCH 25.8(L) 26.7 - 33.3 pg [facility] MCHC 33.4 32.1 - 35.9 gm/dl [facility] PLT 222 141 - 320 K/cmm [facility] RDW-CV 17.3(H) 11.7 - 14.6 % [facility] Blood specimen (specimen) 11/08/2009 9:55 EST 11/08/2009 9:57 EST Brielle Mendez APRN HEMATOLOGY & PF4 ORDERABLES Performing Organization Address [facility] de Phone Number [facility] [address] [place] [address] * FERRITIN (11/08/2009 9:55 EST) Pathologist [facility] Ferritin 13 10 - 291 ng/mL [facility] Blood specimen (specimen) 11/08/2009 9:55 EST 11/08/2009 9:57 EST Brielle Mendez APRN CHEMISTRY & BLOOD GAS ORDERABLES Performing Organization Address [facility] de Phone Number [facility] [address] [place] [address] * (ABNORMAL) BASIC METABOLIC PANEL (11/08/2009 9:55 EST) Pathologist [facility] Sodium 140 136 - 145 mEq/L [facility] Potassium 4.4 3.5 - 5.0 mEq/L [facility] Chloride 103 96 - 110 mEq/L [facility] CO2 27 24 - 32 mEq/L [facility] BUN 10 10 - 26 mg/dl [facility] Creatinine 0.68(L) 0.7 - 1.5 mg/dl [facility] GFR, Calculated >60 ml/min/1.7 3m2 [facility] Calcium 9.8 8.5 - 10.5 mg/dl [facility] Calculated Calcium 9.7 8.5 - 10.5 mg/dl [facility] Glucose, Serum 97 70 - 100 mg/dl [facility] Fasting? Yes [facility] Blood specimen (specimen) 11/08/2009 9:55 EST 11/08/2009 9:57 EST Brielle Mendez APRN CHEMISTRY & BLOOD GAS ORDERABLES Performing Organization Address City/State/[facility] Co de Phone Number [facility] [address] [place] [address] documented in this encounter Visit Diagnoses Not on filedocumented in this encounter Care Teams Case Resource Manager Relationship Specialty Start Date End Date Phylicia Brown NP [address] [place] [phone] PCP - General 01/25/09 03/25/10 documented as of this encounter
--- OUTSIDE RECORDS SUMMARY | 2024-04-22 04:30 | XMS_ITS | Encounter Summary ---
Author Organization [facility] Address [address] [place] [address] Care Team Providers Care General Manager In Training Name Role Phone Unavailable Primary Care Provider Unavailabl e Encounter Details Date Type Department Care Team (Latest Contact Info) Description 06/27/2008 7:58 EDT - 06/27/2008 11:59 EDT Hospital Encounter [facility] [address] [place] [address] Maxx Amador MD [address] [place] [phone] Discharge Disposition: Auto Discharge Social History Tobacco [...] [facility] - [facility] [address] [place] [address] Twyla Mcclellan NP [address] [phone] 08/30/2024 14:00 EST Office Visit [facility] Endocrinology - [facility] [address] [place] [address] Twyla Mcclellan, DEPUTY COURT CLERK 62 [place] [address] [place] [phone] documented as of this encounter Procedures Procedure Name Priority Date/Time Associated Diagnosis Comments CYTOPATHOLOGY Routine 06/29/2008 0:00 EDT FL UPPER GI SERIES AIR CONTRAST W/KUB 06/27/2008 9:22 EDT documented in this encounter Results * CYTOPATHOLOGY (06/29/2008 0:00 EDT) Pathology Report: CYTOPATHOLOGY REPORT ? Reports generated via electronic interface contain original data; ? however they are lacking the format of the original report. ? Caution should be taken when reading/interpreti ng unformatted reports. ? Name: ? LINDA STEWART ? Accession #: ? [id number] ? : ? 1975 (Age: 33) ??F ?Collect Date: ? 06/29/2008 ? Location: ? [facility] ? Receive Date: ? 07/02/2008 ? Provider: ?PHYLICIA AVILA-RISING DEPUTY COURT CLERK ? Copy to: ? Specimen/Source: ?Pap Test, Endocervix, ThinPrep Imaging System with ? manual evaluation ? Last Menstrual Period: ? 9/25/08 ? Other: ? HPVA - HPV testing requested if ASC-US on the current ThinPrep Pap test. ? SPECIMEN ADEQUACY ? Satisfactory for Evaluation ? - transformation zone component present ? GENERAL CATEGORIZATION ? Negative for Intraepithelial Lesion or Malignancy ? Document reviewed and electronically signed by: ? Gael Gomez, CT(ASCP) ? Report Date: ??07/04/2008 11:20 ? End of Report ? [facility] 06/29/2008 07/02/[address]-Rising [address] CLERK PATHOLOGY ORDER MAXWELL [facility] [address] [place] [address] * FL UPPERGI SERIES AIR CONTRAST W/KUB (06/27/2008 9:22 EDT) Anatomical Region Laterality Modality Other 06/27/2008 9:22 EDT Narrative 02/04/2009 10:32 EDT morbid obesity pre op surgery FL UPPERGI SERIES AIR CONTRAST ??Jun 27, 2008 9:22:00 AM Signs and Symptoms: ??morbid obesity pre op surgery Comparisons: None. Technique/findings: After noncontrast agent licensing clerk image, single and double-contrast images of the esophagus, stomach, and duodenum were obtained. Findings: Single-contrast images of esophagus showed a normal mucosal pattern. Motility is normal. No significant hiatal hernia is seen. Images of the stomach show normal gastric fold pattern. The stomach empties normally. The duodenal bulb and sweep were evaluated. Motility is normal. There were some thickened folds present in the duodenum which may represent some duodenitis. Impression: 1. No hiatal hernia seen. No significant reflux. I have personally reviewed the images and the above interpretation and agree with the findings. Procedure Note Jesus Bey MD / Gael Kelly MD - 02/04/2009 morbid obesity pre op surgery FL UPPERGI SERIES AIR CONTRAST Jun 27, 2008 9:22:00 AM Signs and Symptoms: morbid obesity pre op surgery Comparisons: None. Technique/findings: After noncontrast agent licensing clerk image, single and double-contrast images of the esophagus, stomach, and duodenum were obtained. Findings: Single-contrast images of esophagus showed a normal mucosal pattern. Motility is normal. No significant hiatal hernia is seen. Images of the stomach show normal gastric fold pattern. The stomach empties normally. The duodenal bulb and sweep were evaluated. Motility is normal. There were some thickened folds present in the duodenum which may represent some duodenitis. Impression: 1. No hiatal hernia seen. No significant reflux. I have personally reviewed the images and the above interpretation and agree with the findings. Maxx Amador MD IMG FLUOROSC OPY ORDERABLES documented in this encounter Visit Diagnoses Not on filedocumented in this encounter
--- OUTSIDE RECORDS SUMMARY | 2024-04-22 04:30 | XMS_ITS | Encounter Summary ---
Author Organization [facility] Address [address] [place] [address] Care Team Providers Care School Bus Aide Name Role Phone Phylicia Brown PUBLIC RELATIONS SENIOR ASSOCIATE Primary Care Provider Encounter Details Date Type Department Care Team (Late st Contact Info) Description 02/21/2010 Abstract [facility] Bariatric Surgery [facility] [address] [place] [address] Phylicia Brown, SACHIN [address] [place], [place] [phone] ANUPAM (obstructive sleep apnea) Social History Tobacco Use Types Packs/Day Years Used Date Smoking Tobacco: Never Assessed Sex and Gender Information Value Date Recorded Sex Assigned at Not on file Gender Identity Not on file Sexual Orientation Not on file documented as of this encounter Plan of Treatment Upcoming Encounters Date Type Department Care Team (Late st Contact Info) Description 05/17/2024 13:00 EDT Office Visit [facility] Endocrinology - [address] [phone] Twyla Mcclellan NP [address] [place] [phone] 08/30/2024 14:00 EST Office Visit [facility] Endocrinology - [facility] [address] [place], [place] [phone] Twyla Mcclellan NP [address] [place] [address] [place] [phone] documented as of this encounter Visit Diagnoses Diagnosis ANUPAM (obstructive sleep apnea) Obstructive sleep apnea (adult) (pediatric) documented in this encounter Historical Medications * This list may reflect changes made after this encounter. Medication Sig Dispensed Refills Start Date End Date FERROUS SULFATE,DRIED (IRON, DRIED, ORAL) Take by mouth daily. Take one tab 03/27/2010 FE FUMARATE/CA CARB/VITAMIN D3 ([id number] FUMARATE ORAL) Take by mouth daily. Take one tab 03/27/2010 Ergocalciferol, Vitamin D2, (VITAMIN D) 400 unit Cap Take 400 Units by mouth daily. Take one tab 03/27/2010 URSODIOL (ACTIGALL ORAL) Take by mouth 2 times daily. Take one tab 03/27/2010 metformin (GLUCOPHAGE) 850 mg tablet Take 850 mg by mouth 2 times daily. 10/17/2010 11/11/2010 FLUTICASONE/SALMETEROL (ADVAIR HFA INHL) Inhale 230 mg as directed 2 times daily. Take two puffs a day 03/27/2010 added in this encounter Care Teams School Bus Aide Relationship Specialty Start Date End Date Phylicia Brown NP [address] [place] [phone] PCP - General 01/25/09 03/25/10 documented as of this encounter
--- OUTSIDE RECORDS SUMMARY | 2024-04-22 04:30 | XMS_ITS | Encounter Summary ---
Author Organization [facility] Address [address] [place] [address] Care Team Providers Care Director Of Individual Giving Name Role Phone Phylicia Brown NP Primary Care Provider Encounter Details Date Type Department Care Team (Late st Contact Info) Description 12/26/2008 Before PRISM Converted Visit (Maple) [facility] - Maple conversion [address] [place] [address] Brielle Mendez, SERVICE TECHNICIAN 61 [facility] [address] [phone] Social History Tobacco Use Types Packs/Day Years Used Date Smoking Tobacco: Never Assessed Sex and Gender Information Value Date Recorded Sex Assigned at Not on file Gender Identity Not on file Sexual Orientation Not on file documented as of this encounter Progress Notes * Brielle Mendez REFRIGERATION UNIT REPAIRER - 03/13/2009 1818 EDT DIVISION OF BARIATRIC SURGERY PROGRESS/FOLLOWUP NOTE - 12/26/2008 MICHAEL Traylor returns to our office today for continued medically-supervised weight loss in preparation for laparoscopic adjustable gastric band surgery. 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 Her comorbidities include obstructive sleep apnea, fatty liver disease, hypertension, dyslipidemia, and type 2 diabetes. She denies any changes in her medical history or medications since her previous visit.She is walking three miles three times a week and also takes daily walks or bikes with her son. Shestarted on the NuvaRing about two months ago, and since then, it seems like her blood pressure is elevated and she will be discussing that with Arlene, her primary care provider, to find a different form of control. In regards to her type 2 diabetes, she did increase her basal rate from her pump as we discussed last time and is now using four units from 12 AM, 4.6 units from 4 AM, 3.9 units from 7 AM, and 4.6 units at 4:30 PM. She feels that her morning blood sugars are now very well controlled with this pump adjustment. In reviewing her blood sugar logs that she brought with her today, her AM blood sugars are consistently in the very low 100s. The rest of the day, they are still in the 200s and we discussed that she may need to change her insulin carb ratio from 1:10 to maybe 1:5 or 1:8. She is also going to try to find out what her pump is auto correcting her to, as that may need to be adjusted as well. The last thing that she is going to do is to check her basal rate for the afternoon and evening by fasting, which is the typical way of checking basal rates. If that is correct, will work on changing her insulin to carb ratio and possible auto corrects. She is meeting with Arlene in a few weeks and will be reviewing all of that with her. Kymberly met with our program dietitian for continued preop preparations for surgery. She has only lost about a pound since starting in our program. She has about 14 pounds to lose as part of our preop weight loss goal. It may be somewhat difficult sinceimproving glycemic control only leads to weight gain, so this may be somewhat difficult to attain. We are encouraging her to obtain 4519-4730 calories daily and to decrease her carb intake to 30 g per meal to help with the weight loss while she is improving her glycemia control. We are also encouraging her to increase her exercise as this will, again, help with her weight loss and to decrease the amount of insulin that she will need. I did consult with the dietitian following her visit with the patient and agree with her findings. OBJECTIVE On physical exam today, her blood pressure was 156/82. Pulse is 72 and regular. Weight is 294.8 with a BMI of 50.6 and a height of 162.5 cm. ASSESSMENT Miguelina continues to be an appropriate candidate for bariatric surgery with a body mass index of 50.6 and multiple life-threatening comorbidities. PLAN She will need to, as previously discussed, improve her glycemic control to a hemoglobin A1c of lessthan 7% before we will consider scheduling her surgery and will need to show some more consistent weight loss before we will submit her information to her insurance company for prior authorization. She will continue to return on a monthly basis for medically-supervised weight loss in preparation for surgery. Signed by Brielle Mendez NP,MPH 01/08/2009 09:57 Brielle Mendez NP,MPH [phone] - Brielle Mendez NP,MPH - Job ID: [id number] Doc ID: [id number] cc: Phylicia Brown NP documented in this encounter Plan of Treatment Upcoming Encounters Date Type Department Care Team (Late st Contact Info) Description 05/17/2024 13:00 EDT Office Visit [facility] Endocrinology [address] [address] Twyla Mcclellan NP [address] [place] [phone] 08/30/2024 14:00 EST Office Visit [facility] Endocrinology [address] [address] Twyla Mcclellan NP [address] [place] [phone] documented as of this encounter Visit Diagnoses Not on filedocumented in this encounter Care Teams Director Of Individual Giving Relationship Specialty Start Date End Date Phylicia Brown NP [address] [place] [phone] PCP - General 01/25/09 03/25/10 documented as of this encounter
--- OUTSIDE RECORDS SUMMARY | 2024-04-22 04:30 | XMS_ITS | Encounter Summary ---
Author Organization [facility] Address [address] [place] [address] Care Team Providers Care Supervisor Commissary Production Name Role Phone Anna Marie Montero MD Primary Care Provider Unavaila ble Reason for Visit * Reason Onset Date Comments Labs Only 03/27/2010 Encounter Details Date Type Department Care Team (Late st Contact Info) Description 03/27/2010 Orders Only [facility] Bariatric Surgery [facility] [address] [place], [place] [address] Maxx Amador MD [address] [place] [phone] Morbid obesity (HCC-CMS) (Primary Dx) Social [...] Description 05/17/2024 13:00 EDT Office Visit [facility] Endocrinology - [facility] [address] [place] [address] Twyla Mcclellan NP [address] [phone] 08/30/2024 14:00 EST Office Visit [facility] Endocrinology - [facility] [address] [place] [address] Twyla Mcclellan, NEWS WRITER 62 [facility] [address] [place] [phone] documented as of this encounter Visit Diagnoses Diagnosis Morbid obesity (HCC-CMS)- Primary Morbid obesity documented in this encounter Care Teams Supervisor Commissary Production Relationship Specialty Start Date End Date Anna Marie Montero MD PCP - General 03/26/10 09/18/10 documented as of this encounter
--- OUTSIDE RECORDS SUMMARY | 2024-04-22 04:30 | XMS_ITS | Encounter Summary ---
Author Organization [facility] Address [address] [place] [address] Care Team Providers Care C Web Developer Name Role Phone Anna Marie Montero MD Primary Care Provider Unavaila ble Reason for Visit * Reason Comments Obesity post op Encounter Details Date Type Department Care Team (Late st Contact Info) Description 06/30/2010 10:45 EDT Office Visit [facility] Bariatric Surgery [address] [address] Brielle Mendez S, FERMENTATION SCIENTIST [address] [phone] Morbid obesity (HCC-CMS); DM (diabetes mellitus), type 2 (CMS-HCC) (HCC-CMS); HTN (hypertension); Status post gastric bypass for obesity; PCOS (polycystic ovarian syndrome); Malabsorption syndrome; Hypothyroid; Iron deficiency anemia; Vitamin D deficiency Discharge Disposition: Auto Discharge Social History Tobacco Use Types Packs/Day Years Used Date Smoking Tobacco: Never Assessed Sex and Gender Information Value Date Recorded Sex Assigned at Not on file Gender Identity Not on file Sexual Orientation Not on file documented as of this encounter Last Filed Vital Signs Vital Sign Reading Time Taken Comments Blood Pressure 114/80 06/30/2010 1056 EDT Pulse 72 06/30/2010 1056 EDT Temperature - - Respiratory Rate - - Oxygen Saturation - - Inhaled Oxygen Concentration - - Weight 95.9 kg (211 lb 6.4 oz) 06/30/2010 1056 E DT Height 169.2 cm (5' 6.61) 06/30/2010 1056 EDT Body Mass Index 33.49 06/30/2010 1056 EDT documented in this encounter Patient Instructions * Patient Instructions* Vane Bar RD - 06/30/2010 11:31 EDT Take 2 of your iron pills-one in the AM with your multivitamin, one before bed with a source of VitC B12-if you are taking 1000 mcg, take only 500 mcg per day. If you are taking 500 mcg, take every other day. documented in this encounter Discharge Disposition Disposition Code Departure Means Destination Auto Discharge documented in this encounter Progress Notes * Inpatient, Physician - 07/03/2010 1315 EDT * Vane Bar RD - 06/30/2010 1138 EDT Nutrition Post Op Visit Subjective: Questionnaire Reviewed: yes Intolerance Episodes: no Food Intolerances: None Current Exercise: Walking, biking, hiking 45 min 5 times per week Reactive Hypoglycemic Symptoms (bypass only): No-did have lows before meds were adjusted Objective: Current Weight: Wt Readings from Last 1 Encounters: 06/30/2010 95.89 kg (211 lb 6.4 oz) Current BMI: Body mass index is Body mass index is 33.49 kg/(m^2).. Weight Loss since Surgery: -64.8 lb Weight Change since Last Visit:-13.4 lb Supplement Usage: Type Amount MVT Pill 1 B12 Pill 2 Calcium w/Vit D viactive 1 Iron FeFum 1 B Complex Pill 1 Vit D 400 IU Recent Labs: Abnormal-low Fe, high Vit B12 Assessment: Adequate Meal Frequency: Yes Adequate Meal Composition: Yes Exercise Adequacy: Yes Nutritional Issues: excellent progress with improved control of diabetes, needs more iron, less VitB12 Plan: Continue current diet and exercise Supplement Changes-take 2 Fe daily, decrease B12 Education Provided: Other-as above,supplement changes * Brielle Mendez NP - 06/30/2010 1108 EDT Kymberly Stewart is here in follow-up to her Alfredo-En-Y gastric bypass PROBLEM LIST Patient Active Problem List Diagnoses [...] 272.4S ??? PCOS (polycystic ovarian syndrome) 256.4AE SUBJECTIVE: Has lost around 80 lbs since surgery and now off insulin x 3 wks /april A1c 7%. Stilltaking metformin and BS normal thru the day. Taking all supplements and extra D. Stopped novaring in april due to heavy bleeding x 4 months. Reviewed post-op labs and note iron deficiency and taking 1 tab gentle iron daily. Emesis: No complaints of emesis Nausea: No complaints of nausea Increased Volume Tolerance: no Abdominal Pain: No complaints of abdominal pain Lightheadedness: No complaints of lightheadedness Bowel Function: Normal Pannus: No problems related to pannus reported OBJECTIVE General Appearance: healthy appearing Abdomen: Incision well-healed and Nontender ASSESSMENT Weight Loss: good Vitamin D deficiency and Iron deficiency PLAN Double the iron and take with vitamin c. 1. Return to clinic in 6 month(s). 2. Orders Placed This Encounter Procedure ??? Vitamin b1, thiamine Standing Status: Future Number of Occurrences: Standing Expiration Date: 06/30/2011 ??? Creatinine Standing Status: Future Number of Occurrences: Standing Expiration Date: 06/30/2011 ??? Hemagram Standing Status: Future Number of Occurrences: Standing Expiration Date: 06/30/2011 ??? Ferritin Standing Status: Future Number of Occurrences: Standing Expiration Date: 06/30/2011 ??? Calcium Standing Status: Future Number of Occurrences: Standing Expiration Date: 06/30/2011 ??? Vitamin b12 Standing Status: Future Number of Occurrences: Standing Expiration Date: 06/30/2011 ??? Pth intact Standing Status: Future Number of Occurrences: Standing Expiration Date: 06/30/2011 ??? Iron Standing Status: Future Number of Occurrences: Standing Expiration Date: 06/30/2011 ??? Ibc Standing Status: Future Number of Occurrences: Standing Expiration Date: 06/30/2011 ??? Hemoglobin a1c Standing Status: Future Number of Occurrences: Standing Expiration Date: 06/30/2011 ??? Vitamin d (25,oh) Standing Status: Future Number of Occurrences: Standing Expiration Date: 06/30/2011 ??? Tsh Standing Status: Future Number of Occurrences: Standing Expiration Date: 06/30/2011 Brielle Mendez NP 06/30/2010 16:57 * Jami Davis - 06/30/2010 1059 EDT 30-Day Plus Bariatric Surgery Postop Questionnaire [...] suspected reason for admission) No Jami Davis 06/30/2010 10:59 documented in this encounter Miscellaneous Notes * Scanned Note-Null - Headwaitress, Scan - 07/24/2011 0955 EDT documented in this encounter Plan of Treatment Upcoming Encounters Date Type Department Care Team (Late st Contact Info) Description 05/17/2024 13:00 EDT Office Visit [facility] Endocrinology - [address] [phone] Twyla Mcclellan NP [address] [facility] [address] [place] [address] 08/30/2024 14:00 EST Office Visit [facility] Endocrinology - [facility] [address] [place], [place] [phone] Twyla Mcclellan NP [address] [facility] [address] [place] [address] documented as of this encounter Visit Diagnoses Diagnosis Morbid obesity ([facility]) Morbid obesity DM (diabetes mellitus), type 2 ([facility]) Type II or unspecified type diabetes mellitus without mention of complication, not stated as uncontrolled HTN (hypertension) Unspecified essential hypertension Status post gastric bypass for obesity Bariatric surgery status PCOS (polycystic ovarian syndrome) Polycystic ovaries Malabsorption syndrome Unspecified intestinal malabsorption Hypothyroid Unspecified hypothyroidism Iron deficiency anemia Iron deficiency anemia, unspecified Vitamin D deficiency Unspecified vitamin D deficiency documented in this encounter Discontinued Medications Medication Sig Discontinue Reason Start Date End Da te ethinyl estradiol-etonogestr el (NUVARING) 0.12-0.015 mg/[address] 1 Each vaginally SEE ADMIN INSTRUCTIONS. Wear continuously for 3 weeks; remove for 1 week; repeat with new ring, as directed. Patient Stopped Taking 06/30/2010 INSULIN ASPART (NOVOLOG SUBQ) Inject into the skin. Basal rate is 20.2 - basal rate plus bolus 26-45 Patient Stopped Taking 06/30/2010 insulin aspart (NOVOLOG) 100 unit/mL injection Inject into the skin. Mini Med Pump: mn-5.35, 6a=6.0, 7a=4.6, 0430=4.8 Patient Stopped Taking 06/30/2010 NIFEDIPINE ORAL Take 30 mg by mouth daily. Patient Stopped Taking 05/14/2010 06/30/2010 pramlintide (SYMLIN) 600 mcg/mL injection Inject 60 mcg into the skin 3 times daily before meals. Patient Stopped Taking 06/30/2010 UNABLE TO FIND 500 mg 2 times daily. Med Name: Methyldopa Patient Stopped Taking 05/14/2010 06/30/2010 documented as of this encounter Historical Medications * This list may reflect changes made after this encounter. Medication Sig Dispensed Refills Start Date End Date MULTIVITAMIN ORALIndications:Morbid obesity ([facility]),DM (diabetes mellitus), type 2 ([facility]),HTN (hypertension),Status post gastric bypass for obesity,PCOS (polycystic ovarian syndrome),Malabsorption syndrome,Hypothyroid Take by mouth daily. 06/30/2010 added in this encounter Care Teams C Web Developer Relationship Specialty Start Date End Date Anna Marie Montero MD PCP - General 03/26/10 09/18/10 documented as of this encounter
--- OUTSIDE RECORDS SUMMARY | 2024-04-22 04:30 | XMS_ITS | Encounter Summary ---
Author Organization [facility] Address [address] [place] [address] Care Team Providers Care Lock Master Name Role Phone Unavailable Primary Care Provider Unavailabl e Encounter Details Date Type Department Care Team (Late st Contact Info) Description 06/21/2008 13:13 EDT Hospital Encounter [facility] - [place] [address], [place] [address] Maxx Amador MD [address] [place] [phone] Social History Tobacco Use Types Packs/Day [facility] [address] [phone] Twyla Mcclellan NP [address] [phone] 08/30/2024 14:00 EST Office Visit [facility] Endocrinology - [address] [phone] Twyla Mcclellan NP [address] [phone] documented as of this encounter Visit Diagnoses Not on filedocumented in this encounter
--- OUTSIDE RECORDS SUMMARY | 2024-04-22 04:30 | XMS_ITS | Encounter Summary ---
Author Organization [facility] Address [address] [place] [address] Care Team Providers Care Heavy Duty Custodian Name Role Phone Phylicia Brown NP Primary Care Provider Encounter Details Date Type Department Care Team (Late st Contact Info) Description 03/25/[address] [facility] Bariatric Surgery [address] [address] Brielle Mendez, END USER SUPPORT SPECIALIST 61 [facility] [address] [phone] Social History Tobacco Use Types Packs/Day Years [...] Office Visit [facility] Endocrinology - [address] [address] Twyla Mcclellan NP [address] [place] [address] [place] [phone] 08/30/2024 14:[address] [facility] Endocrinology [address] [phone] Twyla Mcclellan NP [address] [place] [phone] documented as of this encounter Visit Diagnoses Not on filedocumented in this encounter Care Teams Heavy Duty Custodian Relationship Specialty Start Date End Date Phylicia Brown NP [address] [place] [address] PCP - General 01/25/09 03/25/10 documented as of this encounter
--- OUTSIDE RECORDS SUMMARY | 2024-04-22 04:30 | XMS_ITS | Encounter Summary ---
Author Organization [facility] Address [address] [place] [address] Care Team Providers Care Railroad Car Cleaning Supervisor Name Role Phone Anna Marie Montero MD Primary Care Provider Unavaila ble Reason for Visit * Reason Onset Date Comments Follow-up 09/03/2010 Encounter Details Date Type Department Care Team (Late st Contact Info) Description 09/03/2010 Telephone [facility] Bariatric Surgery [address] [address] Lizzie Duong, RN [address] [place] [address] Follow-up Social History Tobacco Use Types Packs/Day Years Used Date Smoking Tobacco: Never Assessed Sex and Gender Information Value Date Recorded Sex Assigned at Not on file Gender Identity Not on file Sexual Orientation Not on file documented as of this encounter Miscellaneous Notes * Telephone Encounter - Lizzie Duong - 09/03/2010 0857 EST Patient calls to report that she is ; estimates about 6-7 weeks. Reports that she will be following up with a OBGYN provider who specializes in high risk pregnancies. Per Juan J Mendez, should get labs done in September and follow up in the office in October. Mailed patient a lab slip. Patient verbalized understanding and states she will call us with any questions/concerns in the meantime. documented in this encounter Plan of Treatment Upcoming Encounters Date Type Department Care Team (Late st Contact Info) Description 05/17/2024 13:00 EDT Office Visit [facility] Endocrinology - [address] [phone] Twyla Mcclellan NP [address] [place] [phone] 08/30/2024 14:00 EST Office Visit [facility] Endocrinology - [address] [address] Twyla Mcclellan NP [address] [place] [phone] documented as of this encounter Visit Diagnoses Not on filedocumented in this encounter Care Teams Railroad Car Cleaning Supervisor Relationship Specialty Start Date End Date Anna Marie Montero MD PCP - General 03/26/10 09/18/10 documented as of this encounter
--- OUTSIDE RECORDS SUMMARY | 2024-04-22 04:31 | XMS_ITS | Encounter Summary ---
Author Organization [facility] Address [address] [place] [address] Care Team Providers Care Tool Pusher Name Role Phone Anna Marie Montero MD Primary Care Provider Phylicia Garcia NP Primary Care Provider Encounter Details Date Type Department Care Team (Late st Contact Info) Description 04/23/2003 Results Only *[facility] - [place] [address] [place] [address] Luis Trinidad MD PhD 111 [facility] 5 [place] [phone] Social History Tobacco Use Types Packs/Day Years Used Date Smoking Tobacco: Never Assessed Sex and Gender Information Value Date Recorded Sex Assigned at Not on file Gender Identity Not on file Sexual Orientation Not on file documented as of this encounter Plan of Treatment Upcoming Encounters Date Type Department Care Team (Late st Contact Info) Description 05/17/2024 13:00 EDT Office Visit [facility] Endocrinology - [address] [address] Twyla Mcclellan NP [address] [place] [phone] 08/30/2024 14:00 EST Office Visit [facility] Endocrinology - [address] [phone] Twyla Mcclellan, FLOAT TENDER [address] [facility] [address] [place] [phone] documented as of this encounter Procedures Procedure Name Priority Date/Time Associated Diagnosis Comments CERULOPLASMIN, S Routine 04/23/2003 14:0 5 EDT documented in this encounter Results * (ABNORMAL) CERULOPLASMIN (04/23/2003 14:05 EDT) Cerulplasmin 44.7Unit: mg/dL(Note) -- EXPECTED VALUES -- ? (Ref Range) 22.9 to 43.1 ? TEST PERFORMED OR REFERRED BY [facility] ? [address] ? [place] [address] ? Meat Apprentice: ? Gibson Pyle M.D. ?(H) [facility] 04/23/2003 14:0 5 EDT 04/23/2003 14:06 EDT Luis Trinidad MD PhD CHEMISTRY & BLO OD GAS ORDERABLES [facility] [address] [place] [address] documented in this encounter Visit Diagnoses Not on filedocumented in this encounter Care Teams Tool Pusher Relationship Specialty Start Date End Date Anna Marie Montero MD PCP - General 03/26/10 09/18/10 Phylicia Brown NP [address] [place] [address] PCP - General 01/25/09 03/25/10 documented as of this encounter
--- OUTSIDE RECORDS SUMMARY | 2024-04-22 04:31 | XMS_ITS | Encounter Summary ---
Author Organization [facility] Address [address] [place] [address] Care Team Providers Care Front Desk Clerk Name Role Phone Unavailable Primary Care Provider Unavailabl e Encounter Details Date Type Department Care Team (Late st Contact Info) Description 08/25/2004 17:10 EST Hospital Encounter [facility] - Other [address] [place] [address] Lee Cowan MD Social History Tobacco Use Types Packs/Day [...] Office Visit [facility] Endocrinology - [place] [address] [place] [address] Twyla Mcclellan NP [address] [facility] [address] [place] [phone] 08/30/2024 14:00 EST Office Visit [facility] Endocrinology - [place] [address] [place] [address] Twyla Mcclellan NP [address] [place] [phone] documented as of this encounter Procedures Procedure Name Priority Date/Time Associated Diagnosis Comments [facility] Routine 08/26/2004 14:45 EST documented in this encounter Results * [facility] (08/26/2004 14:45 EST) Anatomical Region Laterality Modality Other 08/26/2004 14:4 5 EST Narrative 05/24/2009 16:24 EDT [id number],S>D,SPOTTING ONLY W/LAST MENST PERIOD Please refer to the separate [facility] report. Procedure Note Lee Cowan MD - 05/24/2009 [id number],S>D,SPOTTING ONLY W/LAST MENST PERIOD Please refer to the separate [facility] report. Susi Powell MD IMG [facility] ORDERABLE S documented in this encounter Visit Diagnoses Not on filedocumented in this encounter
--- OUTSIDE RECORDS SUMMARY | 2024-04-22 04:31 | XMS_ITS | Encounter Summary ---
Author Organization [facility] Address [address] [place] [address] Care Team Providers Care Back Facer Name Role Phone Unavailable Primary Care Provider Unavailabl e Encounter Details Date Type Department Care Team (Late st Contact Info) Description 08/18/2004 8:15 EST Hospital Encounter [facility] - Other [address] [place] [address] Susi Powell MD [address] [place] [address], [facility] [address] [place] [phone] Social History Tobacco Use Types Packs/Day Years [...] Description 05/17/2024 13:00 EDT Office Visit [facility] Endocrinology - [address] [phone] Twyla Mcclellan NP [address] [place] [phone] 08/30/2024 14:00 EST Office Visit [facility] Endocrinology - [address] [phone] Twyla Mcclellan NP [address] [place] [phone] documented as of this encounter Visit Diagnoses Not on filedocumented in this encounter
--- OUTSIDE RECORDS SUMMARY | 2024-04-22 04:31 | XMS_ITS | Encounter Summary ---
Author Organization [facility] Address [address] [place] [address] Care Team Providers Care Loading Shovel Oiler Name Role Phone Unavailable Primary Care Provider Unavailabl e Encounter Details Date Type Department Care Team (Late st Contact Info) Description 08/11/2000 12:50 EST Hospital Encounter [facility] - Other [address] [place] [address] Linda Michael MD [facility] [place] [address] Unknown, ProviderMD Discharge Disposition: Auto Discharge Social History Tobacco [...] Office Visit [facility] Endocrinology - [address] [address] Twyla Mcclellan NP [address] [phone] 08/30/2024 14:00 EST Office Visit [facility] Endocrinology - [address] [address] Twyla Mcclellan, SLOT FLOORMAN 62 [facility] [address] [place] [phone] documented as of this encounter Procedures Procedure Name Priority Date/Time Associated Diagnosis Comments CYTOPATHOLOGY Routine 08/11/2000 0:00 EST documented in this encounter Results * CYTOPATHOLOGY (08/11/2000 0:00 EST) Pathology Report: CYTOPATHOLOGY REPORT Reports generated via electronic interface contain original data; however they are lacking the format of the original report. Caution should be taken when reading/interpreti ng unformatted reports. Name: ? LINDA STEWART ? Accession #: ? [id number] : ? 1975 (Age: 25) ??F ?Collect Date: ? 08/11/2000 Location: ? [facility] ? Receive Date: ? 08/17/2000 Provider: ?LINDA MICHAEL MD Copy to: ? Specimen/Source: ?ThinPrep Pap Test, Cervix/Endocervix Last Menstrual Period: ? 08/01/00 ? SPECIMEN ADEQUACY ? Satisfactory for evaluation. GENERAL CATEGORIZATION ? Within Normal Limits ? Document reviewed and electronically signed by: ? VERENA Lindquist(ASCP) ? Report Date: ??08/23/2000 08:41 End of Report [facility] 08/11/2000 08/17/2000 Linda Michael MD PATHOLOGY ORDER MAXWELL Performing Organization Address City/State[facility] Co de Phone Number [facility] [address] [address] documented in this encounter Visit Diagnoses Not on filedocumented in this encounter
--- OUTSIDE RECORDS SUMMARY | 2024-04-22 04:31 | XMS_ITS | Encounter Summary ---
Author Organization [facility] Address [address] [place] [address] Care Team Providers Care Processing Associate Name Role Phone Anna Marie Montero MD Primary Care Provider Phylicia Garcia NP Primary Care Provider Encounter Details Date Type Department Care Team (Late st Contact Info) Description 08/18/[address] [facility] Obstetrics & Midwifery - [address] [phone] Hemant Powell MD [address] [place] [address], [address] [place] [phone] Social History Tobacco Use Types [...] Description 05/17/2024 13:[address] [facility] Endocrinology - [address] [address] Twyla Mcclellan NP [address] [place] [phone] 08/30/2024 14:[address] [facility] Endocrinology - [address] [phone] Twyla Mcclellan, LODGING FACILITIES MANAGER 62 [facility] [address] [place] [address] documented as of this encounter Procedures Procedure Name Priority Date/Time Associated Diagnosis Comments CYTOPATHOLOGY Routine 08/18/2004 0:00 EST documented in this encounter Results * CYTOPATHOLOGY (08/18/2004 0:00 EST) Pathology Report: CYTOPATHOLOGY REPORT Reports generated via electronic interface contain original data; however they are lacking the format of the original report. Caution should be taken when reading/interpreti ng unformatted reports. Name: ? NADYALINDA ? Accession #: ? [id number] : ? 1975 (Age: 29) ??F ?Collect Date: ? 08/18/2004 Location: ? [facility] ? Receive Date: ? 08/19/2004 Provider: ?HEMANT POWELL MD Copy to: ? Specimen/Source: ?ThinPrep Pap Test, Cervix/Endocervix Last Menstrual Period: ? 06/27/04 Menstrual/Pregnanc y Status: ? Other: ? HPVA - HPV testing requested if ASC-US on the current ThinPrep Pap test. ? SPECIMEN ADEQUACY ? Satisfactory for Evaluation - transformation zone component present GENERAL CATEGORIZATION ? Negative for Intraepithelial Lesion or Malignancy INTERPRETATION ? Shift in edmundo present suggestive of bacterial vaginosis. ? Document reviewed and electronically signed by: ? Hyun Cornell, DOROTHEA(ASCP) ? Report Date: ??08/25/2004 15:04 End of Report [facility] 08/18/2004 08/19/2004 Hemant Powell MD PATHOLOGY ORDERABLES Performing Organization Address City/State/[facility] Co de Phone Number [facility] [address] [place] [address] documented in this encounter Visit Diagnoses Not on filedocumented in this encounter Care Teams Processing Associate Relationship Specialty Start Date End Date Anna Marie Montero MD PCP - General 03/26/10 09/18/10 Phylicia Brown NP [address] [place] [id number] PCP - General 01/25/09 03/25/10 documented as of this encounter
--- OUTSIDE RECORDS SUMMARY | 2024-04-22 04:31 | XMS_ITS | Encounter Summary ---
Author Organization [facility] Address [address] [place] [address] Care Team Providers Care Asw Specialist Name Role Phone Unavailable Primary Care Provider Unavailabl e Encounter Details Date Type Department Care Team (Late st Contact Info) Description 08/26/2004 14:48 EST Hospital Encounter [facility] - Other [address] [place] [address] Lee Cowan MD Social History Tobacco Use [...] Visit [facility] Endocrinology - [facility] [address] [place] [address] Twyla Mcclellan NP 62 [facility] [address] [place] [address] 08/30/2024 14:00 EST Office Visit [facility] Endocrinology - [facility] [address] [place] [address] Twyla Mcclellan, SACHIN 62 [facility] [address] [place] [address] documented as of this encounter Procedures Procedure Name Priority Date/Time Associated Diagnosis Comments ASSISTED FOLLOW-UP Routine 08/28/2004 13:15 EST documented in this encounter Results * ASSISTED FOLLOW-UP (08/28/2004 13:15 EST) Anatomical Region Laterality Modality Other 08/28/2004 13:1 5 EST Narrative 05/23/2009 15:14 EDT 44136,HCG,ECTOPIC PRECAUTIONS GIVEN Please refer to the separate [facility] report. Procedure Note Viet Vann MD - 05/23/2009 [id number],HCG,ECTOPIC PRECAUTIONS GIVEN Please refer to the separate [facility] report. Autumn Parry MD IMG ASSISTED ORDERABLE S documented in this encounter Visit Diagnoses Not on filedocumented in this encounter
--- OUTSIDE RECORDS SUMMARY | 2024-04-22 04:31 | XMS_ITS | Encounter Summary ---
Author Organization [facility] Address [address] [place] [address] Care Team Providers Care Tax Examining Technician Name Role Phone Unavailable Primary Care Provider Unavailabl e Encounter Details Date Type Department Care Team (Late st Contact Info) Description 2004 11:08 EDT Hospital Encounter [facility] - Other [address] [place] [id number] Deshawn Kothari MD [address] [place] [phone] Social History Tobacco Use Types Packs/Day Years [...] Office Visit [facility] Endocrinology - [address] [phone] Twyla Mcclellan FRAME ALIGNER 62 [facility] [address] [place] [address] 08/30/2024 14:00 EST Office Visit [facility] Endocrinology - [facility] [address] [place] [address] Twyla Mcclellan NP [address] [facility] [address] [place] [address] documented as of this encounter Procedures Procedure Name Priority Date/Time Associated Diagnosis Comments QUANT BETA HCG, Routine 08/26/2004 15:04 EST N. GONORRHOEAE AMPLIFIED PROBE Routine 08/18/2004 7:50 EST ZZCHLAMYDIA TRACHOMATIS AMPLIFIED PROBE Routine 08/18/2004 7:50 EST TESTOSTERONE GROUP Routine 2004 11 :11 EDT DHEA SULFATE Routine 2004 11:11 EDT T3, TOTAL Routine 2004 11:11 EDT ALT Routine 2004 11:11 EDT AST Routine 2004 11:11 EDT TSH Routine 2004 11:11 EDT T4 FREE Routine 2004 11:11 EDT LH Routine 2004 11:11 EDT FSH Routine 2004 11:11 EDT BASIC METABOLIC PANEL (BMP) Routine 2004 11:11 EDT ZZHEMOGLOBIN A1C Routine 2004 10:1 6 EDT documented in this encounter Results * (ABNORMAL) HCG (08/26/2004 15:04 EST) Pathologist [facility] HCG [address]76[address](H) <4 mIU/ml [facility] Comment: Reference Range: Positive = >10 Borderline = 4-10 recommend repeat. Negative = <4 08/26/2004 15:0 4 EST 08/26/2004 15:07 EST Lee Cwoan MD CHEMISTRY & BLOOD GA S ORDERABLES Performing Organization Address [facility] Co de Phone Number [facility] [address] [place] [address] * N. GONORRHOEAE AMPLIFIED PROBE (08/18/2004 7:50 EST) [facility] Result No Neisseria gonorrhoeae DNA detected by call center receptionist mediated amplification. [facility] Report Status Final [id number] [facility] Specimen Description Cervix [facility] 08/18/2004 7:50 EST 08/19/2004 7:50 EST Susi Powell MD MICROBIOLOGY - GENER AL ORDERABLES Performing Organization Address [facility] Co de Phone Number [facility] [address] [place] [address] * CHLAMYDIA TRACHOMATIS AMPLIFIED PROBE (08/18/2004 7:50 EST) Pathologist [facility] Specimen Description Cervix [facility] Result No Chlamydia trachomatis DNA detected by call center receptionist mediated amplification. [facility] Report Status Final [id number] [facility] 08/18/2004 7:50 EST 08/19/2004 7:50 EST Susi Powell MD MICROBIOLOGY - GENER AL ORDERABLES Performing Organization Address [facility] Co de Phone Number [facility] [address] [place] [address] * TSH (2004 11:11 EDT) TSH 1.59 0.35 - 5.50 uIU/ml [facility] 2004 11:1 1 EDT 2004 11:19 EDT Deshawn Kothari MD CHEMISTRY & BLOOD GA S ORDERABLES [facility] [address] [place] [address] * TESTOSTERONE GROUP (2004 11:11 EDT) % Free Testosterone 3.0Unit: %(Note) -- EXPECTED VALUES -- ? (Ref Range) 0.9 to 3.8 ? [facility] Testosterone, Free 0.8Unit: ng/dL(Note) -- EXPECTED VALUES -- ? (Ref Range) 0.3 to 1.9 ? [facility] Testosterone, Total 28Unit: ng/dL(Note) -- EXPECTED VALUES -- ? (Ref Range) 12 to 72 ? TEST PERFORMED OR REFERRED BY [facility] ? [address] ? [place] [address] ? Garnishment Specialist: ? Gibson Pyle M.D. ? [facility] 2004 11:1 1 EDT 2004 11:19 EDT Deshawn Kothari MD HISTORICAL LAB FOR S Q LOAD Performing Organization Address [facility] de Phone Number [facility] [address] [place] [address] * (ABNORMAL) T3, TOTAL (2004 11:11 EDT) T3, Total 186(H) 60 - 181 ng/dl [facility] 2004 11:1 1 EDT 2004 11:19 EDT Deshawn Kothari MD CHEMISTRY & BLOOD GA S ORDERABLES Performing Organization Address [facility] de Phone Number [facility] [address] [place] [address] * LH (2004 11:11 EDT) LH 3.0 mIU/ml [facility] Comment: Follicular: 1-18 Mid-Cycle Peak: 15-80 Luteal: 0.5-18 Postmenopausal: 12-55 2004 11:1 1 EDT 2004 11:19 EDT Deshawn Kothari MD CHEMISTRY & BLOOD GA S ORDERABLES Performing Organization Address City/[facility] Co de Phone Number [facility] [address] [place] [address] * T4 FREE (2004 11:11 EDT) Free T4 1.5 0.8 - 1.8 ng/dl [facility] 2004 11:1 1 EDT 2004 11:19 EDT Deshawn Kothari MD CHEMISTRY & BLOOD GA S ORDERABLES Performing Organization Address [facility] Co de Phone Number [facility] [address] [place] [address] * FSH (2004 11:11 EDT) FSH 4.9 mIU/ml [facility] Comment: Follicular: 2-11 Mid-Cycle Peak: 3.4-35 Luteal: 1-9 Postmenopausal: 25-120 2004 11:1 1 EDT 2004 11:19 EDT Deshawn Kothari MD CHEMISTRY & BLOOD GA S ORDERABLES Performing Organization Address [facility] Co de Phone Number [facility] [address] [place] [address] * DHEA SULFATE (2004 11:11 EDT) DHEA Sulfate 59 0 - 246 ug/dl [facility] 2004 11:1 1 EDT 2004 11:19 EDT Deshawn Kothari MD CHEMISTRY & BLOOD GA S ORDERABLES Performing Organization Address City/[facility] Co de Phone Number [facility] [address] [place] [address] * (ABNORMAL) BASIC METABOLIC PANEL (2004 11:11 EDT) Sodium 139 136 - 145 mEq/L [facility] Potassium 4.5 3.5 - 5.0 mEq/L [facility] Chloride 103 96 - 110 mEq/L [facility] CO2 26 24 - 32 mEq/L [facility] BUN 12 10 - 26 mg/dl [facility] Creatinine 0.7 0.7 - 1.5 mg/dl [facility] Calcium 9.6 8.5 - 10.5 mg/dl [facility] Calculated Calcium 9.4 8.5 - 10.5 mg/dl [facility] Glucose, Serum 177(H) 70 - 110 mg/dl [facility] 2004 11:1 1 EDT 2004 11:19 EDT Deshawn Kothari MD CHEMISTRY & BLOOD GA S ORDERABLES Performing Organization Address [facility] Co de Phone Number [facility] [address] [place] [address] * (ABNORMAL) AST (2004 11:11 EDT) AST 48(H) 15 - 46 U/L [facility] 2004 11:1 1 EDT 2004 11:19 EDT Deshawn Kothari MD CHEMISTRY & BLOOD GA S ORDERABLES Performing Organization Address City/[facility] Co de Phone Number [facility] [address] [place] [address] * (ABNORMAL) ALT (2004 11:11 EDT) ALT 80(H) 9 - 52 U/L [facility] 2004 11:1 1 EDT 2004 11:19 EDT Deshawn Kothari MD CHEMISTRY & BLOOD GA S ORDERABLES Performing Organization Address City/[facility] Co de Phone Number [facility] [address] [place] [address] * (ABNORMAL) HEMOGLOBIN A1C (2004 10:16 EDT) POCT Hgb A1C 7.5(H) 4.5 - 5.7 % [facility] Comment:Test Performed at [facility] 2004 10:1 6 EDT 02/26/2004 10:24 EDT Deshawn Kothari MD CHEMISTRY & BLOOD GA S ORDERABLES [facility] [address] [place] [address] documented in this encounter Visit Diagnoses Not on filedocumented in this encounter
--- OUTSIDE RECORDS SUMMARY | 2024-04-22 04:31 | XMS_ITS | Encounter Summary ---
Author Organization [facility] Address [address] [place] [address] Care Team Providers Care Signaling Project Engineer Name Role Phone Unavailable Primary Care Provider Unavailabl e Encounter Details Date Type Department Care Team (Late st Contact Info) Description 12/07/2001 14:21 EST Hospital Encounter [facility] - Other [address] [place] [address] Linda Michael MD [address] [place] [address] Unknown, ProviderMD Social History Tobacco Use Types Packs/Day Years [...] Info) Description 05/17/2024 13:00 EDT Office Visit [facility] Endocrinology - [place] [address] [place] [address] Twyla Mcclellan NP 62 [facility] [address] [place] [phone] 08/30/2024 14:00 EST Office Visit [facility] Endocrinology - [facility] [address] [place] [address] Twyla Mcclellan NP 62 [facility] [address] [place] [phone] documented as of this encounter Procedures Procedure Name Priority Date/Time Associated Diagnosis Comments CYTOPATHOLOGY Routine 12/07/2001 0:00 EST documented in this encounter Results * CYTOPATHOLOGY (12/07/2001 0:00 EST) Pathology Report: CYTOPATHOLOGY REPORT Reports generated via electronic interface contain original data; however they are lacking the format of the original report. Caution should be taken when reading/interpreti ng unformatted reports. Name: ? LINDA STEWART ? Accession #: ? [id number] : ? 1975 (Age: 26) ??F ?Collect Date: ? 12/07/2001 Location: ? [facility] ? Receive Date: ? 12/09/2001 Provider: ?LINDA MICHAEL MD Copy to: ? Specimen/Source: ?ThinPrep Pap Test, Cervix/Endocervix Last Menstrual Period: ? 11/29/01 ? SPECIMEN ADEQUACY ? Satisfactory for Evaluation - transformation zone component present GENERAL CATEGORIZATION ? Negative for Intraepithelial Lesion or Malignancy ? Document reviewed and electronically signed by: ? Hyun Cornell, SCT(ASCP) ? Report Date: ??12/14/2001 08:12 End of Report [facility] 12/07/2001 12/09/2001 Linda Michael MD PATHOLOGY ORDER [facility] [address] [place] [address] documented in this encounter Visit Diagnoses Not on filedocumented in this encounter
--- OUTSIDE RECORDS SUMMARY | 2024-04-22 04:31 | XMS_ITS | Encounter Summary ---
Author Organization [facility] Address [address] [place] [address] Care Team Providers Care Certified Professional Controller Name Role Phone Unavailable Primary Care Provider Unavailabl e Encounter Details Date Type Department Care Team (Late st Contact Info) Description 04/23/2003 11:46 EDT - 04/23/2003 11:59 EDT Hospital Encounter [facility] - [facility] [address] [place] [address] Luis Trinidad MD PhD [address] [facility] [address] [place] [phone] Discharge Disposition: Auto Discharge Social History Tobacco [...] 05/17/2024 13:00 EDT Office Visit [facility] Endocrinology - [address] [phone] Twyla Mcclellan NP [address] [place] [phone] 08/30/2024 14:00 EST Office Visit [facility] Endocrinology - [address] [phone] Twyla Mcclellan NP 62 [facility] [address] [place] [address] documented as of this encounter Visit Diagnoses Not on filedocumented in this encounter
--- OUTSIDE RECORDS SUMMARY | 2024-04-22 04:31 | XMS_ITS | Encounter Summary ---
Author Organization [facility] Address [address] [place] [address] Care Team Providers Care Administrative Analyst Name Role Phone Unavailable Primary Care Provider Unavailabl e Encounter Details Date Type Department Care Team (Late st Contact Info) Description 03/07/2003 11:35 EDT - 03/07/2003 11:59 EDT Hospital Encounter [facility] - [address] [address] Ange Murphy [address] [phone] Discharge Disposition: Auto Discharge Social History Tobacco [...] [facility] Endocrinology - [facility] [address] [place] [address] Twyla Mcclellan NP [address] [phone] 08/30/2024 14:00 EST Office Visit [facility] Endocrinology - [facility] [address] [place], [place] [phone] Twyla Mcclellan NP 62 [facility] [address] [place] [phone] documented as of this encounter Procedures Procedure Name Priority Date/Time Associated Diagnosis Comments CYTOPATHOLOGY Routine 03/07/2003 0:00 EDT documented in this encounter Results * CYTOPATHOLOGY (03/07/2003 0:00 EDT) Pathology Report: CYTOPATHOLOGY REPORT Reports generated via electronic interface contain original data; however they are lacking the format of the original report. Caution should be taken when reading/interpreti ng unformatted reports. Name: ? LINDA STEWART ? Accession #: ? [id number] : ? 1975 (Age: 28) ??F ?Collect Date: ? 03/07/2003 Location: ? [facility] ? Receive Date: ? 03/08/2003 Provider: ?ANGE MURPHY ANP Copy to: ? Specimen/Source: ?ThinPrep Pap Test, Cervix Last Menstrual Period: ? 02/18/03 ? SPECIMEN ADEQUACY ? Satisfactory for Evaluation - transformation zone component absent GENERAL CATEGORIZATION ? Negative for Intraepithelial Lesion or Malignancy ? Document reviewed and electronically signed by: ? VERENA Giordano(ASCP) ? Report Date: ??03/13/2003 08:43 End of Report [facility] 03/07/2003 03/08/2003 Ange FRAUSTO PATHOLOGY ORDERABLES Performing Organization Address City/State/[facility] Co de Phone Number [facility] [address] [place] [address] documented in this encounter Visit Diagnoses Not on filedocumented in this encounter
[2024-04-22] MEDS: Fluorescein STRIPS 100/BOX 1 MG (04:48)
[2024-04-22] MEDS: Tetracaine 0.5% 4 ML BTL (04:48)
--- NOTE | 2024-04-22 04:50 | W.ED.GENAD ---
Discharge Plan Disposition Patient Disposition: Home Condition: Good Discharge Details Clinical Impression: Keratitis secondary to contact lens Primary Care Provider: Unknown,Unknown ED Provider: Gael Carrizales and New Rx's Prescriptions: New moxifloxacin 0.5 % Drops See Rx Instructions .ROUTE .COMPLEX Qty: 3 0RF Rx Instructions: 1 drp via right eye every one to two hours over the weekend. Discharge Instructions Additional Instructions: You were seen for right eye pain and blurry vision. Do not wear your contact lenses until cleared by your end user support specialist. You have evidence of keratitis which is likely infectious in nature. You need to see your end user support specialist when you return home on Wednesday. You should use the moxifloxacin drops over the weekend. Recommend 1 drop every 1-2 hours over the weekend until you were seen. You should return to the ED if you have increasing pain, worsening vision, discoloration of eye, other concerns. Discharge Data Discharge Date/Time-TO BE ENTERED AT DEPARTURE: 04/22/24 05:13 HPI General Mode of arrival: ambulatory. Date/Time Provider Initiated Documentation: 04/22/24 04:20. Limitations to Documentation: no limitations. Information obtained by: patient. HPI Narrative: Patient presenting to ED with complaint of right eye pain and redness. Patient does wear contacts. She is up here visiting and is at a local campground. She had been swimming in the pool today but is pretty sure she had removed her contacts prior. She put them back in after swimming thought she had taken them out tonight. Has had increasing right eye discomfort and blurry vision. Denies any left eye problems. Denies any headache or vomiting. Related Data Home Medications ?Medication ?Instructions ?Recorded ?Confirmed moxifloxacin 0.5 % eye drops See Rx Instructions .Route 04/22/24 .COMPLEX #3 mL Previous Rx's ?Medication ?Instructions ?Recorded moxifloxacin 0.5 % eye drops See Rx Instructions .Route 04/22/24 .COMPLEX #3 mL Allergies Allergy/AdvReac Type Severity Reaction Status Date / Time No Known Drug Allergies Allergy Unknown Unknown Verified 04/22/24 04:20 General Stated Complaint: EyeProblem CHRISTA: 4 Review of Systems Narrative: Per HPI Exam Narrative Exam Narrative: Const: WDWN female in NAD. VS per triage. HEENT: NC/AT. Normal facial exam. Eyes: PERRL and EOMI. Conjunctival injection noted on the right. Patient noted to have both contacts still in her eyes. These were removed. Neck: Supple. Trachea midline. Lungs: Normal respiratory effort. Neuro: A+O x 3. Normal speech, mentation, gait. Cranial nerves II - XII grossly intact. No gross motor or sensory deficit. Course Vital Signs Vital signs: Vital Signs Temperature 97.9 F 04/22/24 04:22 Pulse 78 04/22/24 04:22 Respiratory Rate 23 04/22/24 04:22 Blood Pressure 156/70 H 04/22/24 04:22 Pulse Oximetry 98 04/22/24 04:22 Temperature 97.9 F 04/22/24 04:22 Temperature Source Temporal Artery Scan 04/22/24 04:22 Pulse 78 04/22/24 04:22 Respiratory Rate 23 04/22/24 04:22 Respiratory Effort Normal, Non-Labored 04/22/24 04:24 Blood Pressure 156/70 H 04/22/24 04:22 Blood Pressure Position Sitting 04/22/24 04:22 Pulse Oximetry 98 04/22/24 04:22 Oxygen Delivery Method Room Air 04/22/24 04:22 Oxygen Flow Rate 0 04/22/24 04:22 Pain Level 4 04/22/24 04:22 Medical Decision Making Patient presenting to ED with right eye pain and redness, blurry vision. She does wear contacts and thought she had them out but were still present. They have subsequently been removed. Right eye was anesthetized with tetracaine. Fluorescein staining and Hayes lamp exam revealed no obvious uptake. Slit-lamp exam reveals evidence of keratitis. Anterior chamber appears normal with no cell or flare appreciated. There is no defect or large area of fluorescein uptake involving the cornea. Patient is only in area for the weekend and will be returning home on Wednesday. Visual acuity in her right eye is impaired but is not absent. I will start her on moxifloxacin eyedrops, 1 drop every 1-2 hours over the weekend. She is instructed to see her end user support specialist Wednesday when she returns home. If she develops any worsening vision, worsening pain, fever, obvious discoloration of the eye or cornea she is to return here immediately. She is not to wear her contact lenses until cleared by her end user support specialist. PFSH All Active Problems Keratitis secondary to contact lens (Acute) Medical History HTN (hypertension) Diabetes mellitus Social History Smoking/Tobacco Use Status: Never Smoking risk assessment performed?: Yes Alcohol Intake: current Alcohol Intake frequency: a few times a week Alcohol type: beer and wine Drug use: Never Substance use type: does not use Housing: house Do you feel safe at home: Yes Do you feel safe in your relationship?: Yes PAWSS Have you Been Recently Intoxicated or Drunk Within the Last 30 days?: No Have you Ever Experienced Previous Episodes of Alcohol Withdrawal?: No Have you ever Experienced Withdrawal Seizures?: No Have you ever Experienced Delirium Tremens(DT)s?: No Have you ever undergone Alcohol Rehabilitation Treatment (i.e, inpt ot outpatient treatment programs)?: No Have you ever Experienced Blackouts?: No Have you ever Combined Alcohol with other Downers within the last 90 days?: No Have you ever Combined Alcohol with any other Substance of Abuse during the last 90 days?: No Positive Blood Alcohol level on Presentation? [PCS.BAL]: No Evidence of Increased Autonomic Activity (i.e. HR>120, tremor, sweating, agitation, nausea)?: No Result: 0
[2024-04-22] MEDS: Moxifloxacin 0.5% 3 ML BTL OD (05:10)
== END 2024-04-22 05:13 | disposition home or self-care (01) ==
PROVIDERS: Emergency Provider Emergency Medicine
DX: H18.821 Corneal disorder due to contact lens, right eye (principal); H16.8 Other keratitis; I10 Essential (primary) hypertension; E11.9 Type 2 diabetes mellitus without complications; Z79.84 Long term (current) use of oral hypoglycemic drugs
CPT/HCPCS: 99283